=== PATIENT | female | born 1955 | race Caucasian/White ===

== ENCOUNTER 2023-05-10 12:22 | Outpatient (OUT) | payer MEDICARE, SELFPAY ==
[2023-05-10 12:54] LABS: Basophils Percent Auto 0.6 % (0.2-2.0); Eosinophils Absolute Auto 0.2 10^3/uL (0.0-0.7); Eosinophils Percent Auto 3.1 % (0.9-7.0); Immature Granulocytes Abs Auto 0.02 10^3/uL (0.00-0.03); Immature Granulocytes Pct Auto 0.3 % (0.0-0.5); Lymphocytes Absolute Auto 1.9 10^3/uL (1.2-3.8); Lymphocytes Percent Auto 30.1 % (20.5-60.0); Mean Corpuscular HGB Conc 33.3 g/dL (29.9-35.2); Mean Corpuscular Hemoglobin 31.8 pg (26.7-34.0); Mean Corpuscular Volume 95.5 fL (81.0-99.0); Mean Platelet Volume 8.7 fL (9.5-13.5); Monocytes Absolute Auto 0.4 10^3/uL (0.3-0.8); Monocytes Percent Auto 6.1 % (1.7-12.0); Neutrophils Absolute Auto 3.8 10^3/uL (1.4-6.5); Neutrophils Percent Auto 59.8 % (43.0-75.0); Platelet Count 296 10^3/uL (150-450); Red Blood Count 3.77 10^6/uL (4.20-5.40); Red Cell Distribution Width 12.6 % (11.0-15.0); White Blood Count 6.4 10^3/uL (4.0-11.0)
[2023-05-10 14:41] LABS: Alanine Aminotransferase 28 U/L (14-59); Albumin Globulin Ratio 1.2; Albumin Level 4.2 g/dL (3.4-5.0); Alkaline Phosphatase 90 U/L (46-116); Aspartate Amino Transferase 20 U/L (15-37); BUN Creatinine Ratio 13.7; Bilirubin Total 0.4 mg/dL (0.2-1.0); Calcium 9.1 mg/dL (8.5-10.1); Carbon Dioxide 27.2 mmol/L (21.0-32.0); Chloride 104 mmol/L (98-107); Chol HDL Ratio 2.6; Cholesterol 165 mg/dL (<=200); Estimated GFR (African America >60 (>=60); Estimated GFR (Non-African Ame 59 (>=60); Globulin 3.4 g/dL; Glucose 131 mg/dL (74-106); HDL Cholesterol 63 mg/dL (40-60); Potassium 4.2 mmol/L (3.5-5.1); Sodium 142 mmol/L (136-145); Total Protein 7.6 g/dL (6.4-8.2); Triglycerides 109 mg/dL (<=150); VLDL CHOLESTEROL 21.8 mg/dL
[2023-05-10 15:20] LABS: Free T3 2.31 pg/mL (2.18-3.98)
[2023-05-10 15:49] LABS: Estimated Average Glucose 126 mg/dL
== END 2023-05-10 12:23 | disposition home or self-care (01) ==
PROVIDERS: PCP Family Medicine; Visit Provider Family Medicine
DX: Z01.89 Encounter for other specified special examinations (principal)
CPT/HCPCS: 36415; 80053; 80061; 83036; 84436; 84443; 84481; 85025

== ENCOUNTER 2023-09-19 08:30 | Outpatient (OUT) | payer MEDICARE, SELFPAY | END 2023-09-19 08:31 | disposition home or self-care (01) | LOC: PST 08:31 | PROVIDERS: PCP Family Medicine; Visit Provider Surgery | DX: Z01.818 Encounter for other preprocedural examination (principal); R19.5 Other fecal abnormalities ==

== ENCOUNTER 2023-09-27 07:14 | Day surgery (SDC) | payer MEDICARE, SELFPAY ==
--- NOTE | 2023-09-27 | OP_ITS ---
OPERATION DATE: 09/27/2023 PREOPERATIVE DIAGNOSIS: Positive Cologuard. POSTOPERATIVE DIAGNOSIS: A 3 mm rectal polyp and sigmoid diverticulosis. PROCEDURE: Colonoscopy to cecum with cold forceps polypectomy x1 for rectal polyp. SURGEON: Eron Nunez M.D. ANESTHESIA: Monitored anesthesia care. ESTIMATED BLOOD LOSS: Less than 1 mL. INDICATIONS AND CONSENT: Patient is a 67-year-old female who recently had a positive Cologuard. Indications, risks, benefits, alternatives of proceeding with colonoscopy were explained extensively to the patient, including the risks of bleeding, colon perforation or anesthetic complications. All of her questions were answered. Informed consent was obtained. PROCEDURE: Patient brought to the operating room, placed in the left lateral decubitus position. Monitored anesthesia care was provided. Rectal exam was performed which showed no masses or blood. The scope was inserted into the anal canal. Under direct visualization was advanced. With the aid of abdominal compression, it was advanced to the cecum where cecal markings were clearly identified. Upon withdrawal of the scope, mucosal surfaces were carefully examined. There were no mass lesions or inflammatory changes. There was moderate sigmoid diverticulosis without inflammatory changes or scarring. Within the rectum, there was noted to be a 3 mm erythematous, sessile, irregular polyp that was removed with cold biopsy forceps with good hemostasis. The scope was retroflexed in the anal canal. There were some small internal/external hemorrhoids without active bleeding or inflammation. The scope was then withdrawn. Patient tolerated procedure well, was sent to recovery room in good condition.f/u colonoscopy likely in 5 years, but depends on pathology. CC: Wiliam Morales
[2023-09-27 07:34] VITALS: BP 187/88; PULSE 86; RESP 18; TEMP 36.2; O2SAT 98
[2023-09-27] MEDS: LACTATED RINGER'S SOLUTION 1,000 ML 50 ML IV (07:47)
[2023-09-27 09:38] VITALS: BP 146/75; PULSE 66; RESP 18; TEMP 36.6; O2SAT 94
[2023-09-27 09:53] VITALS: BP 158/84; PULSE 57; RESP 16; O2SAT 97
[2023-09-27 10:08] VITALS: BP 151/86; PULSE 60; RESP 18; O2SAT 95
== END 2023-09-27 10:08 | disposition home or self-care (01) ==
PROVIDERS: PCP Family Medicine; Visit Provider Surgery
PROC: (CPT 45380; principal; 2023-09-27 08:50)
DX: K62.1 Rectal polyp (principal); R19.5 Other fecal abnormalities; K57.30 Diverticulosis of large intestine without perforation or abscess without bleeding; F41.9 Anxiety disorder, unspecified; F32.A Depression, unspecified; E78.5 Hyperlipidemia, unspecified; I10 Essential (primary) hypertension; K58.9 Irritable bowel syndrome, unspecified; E66.9 Obesity, unspecified; Z68.34 Body mass index [BMI] 34.0-34.9, adult; E11.42 Type 2 diabetes mellitus with diabetic polyneuropathy; Z90.710 Acquired absence of both cervix and uterus; Z79.899 Other long term (current) drug therapy
CPT/HCPCS: 45380; 88305; J2704

== ENCOUNTER 2023-10-18 07:33 | Outpatient (OUT) | payer MEDICARE, SELFPAY ==
--- NOTE | 2023-10-18 07:52 | MM_ITS ---
Patient Name: RAJ SOLOMON MR#: [id number] : 1955 Exam Date: 10/18/2023 Ordering Doctor: DR Emmett Watson . RADIOLOGY REPORT PROCEDURE: MM TOMOSYNTHESIS SCREENING BI COMPARISON: MG MAMM SCREEN 3D SERINA CAD, 09/21/2022. MG MAMM SCREEN 3D SERINA CAD, 08/25/2021. MG MAMM SCREEN SERINA W CAD, 07/01/2020. MG MAMM SERINA SCRN W CAD DIG, 04/24/2014. INDICATIONS: Screening Calculator Name NCI Breast Cancer Risk Assessment Tool 5 Year Breast Cancer Risk 3.20% Lifetime Breast Cancer Risk 10.80% Personal Breast Cancer No Personal Ovarian Cancer No Treatments None Family Cancers Niece with breast cancer at age 53; Aunt-maternal with ovarian cancer at age 60; Mother with breast cancer at age ~42; Aunt-paternal with breast cancer at age ~55; Brother with lung cancer at age 62. LOCATION: [facility] BREAST COMPOSITION: Almost entirely fatty. FINDINGS: DIAGNOSTIC CATEGORY 2--BENIGN FINDING: RIGHT BREAST: No significant suspicious finding. No significant change has occurred. LEFT BREAST: No significant suspicious finding. Scattered benign-appearing lymph nodes are present. No significant change has occurred. RECOMMENDATIONS: ROUTINE MAMMOGRAM AND CLINICAL EVALUATION IN 12 MONTHS. PLEASE NOTE: A NORMAL MAMMOGRAM DOES NOT EXCLUDE THE POSSIBILITY OF BREAST CANCER. A CLINICALLY SUSPICIOUS PALPABLE LUMP SHOULD BE BIOPSIED. Dictated by: Matthew Reynoso M.D. on 10/19/2023 at 07:35 Approved by: Matthew Reynoso M.D. on 10/19/2023 at 07:37
== END 2023-10-18 07:34 | disposition home or self-care (01) ==
LOC: MAMMO 07:33
PROVIDERS: PCP Family Medicine; Visit Provider Family Medicine
DX: Z12.31 Encounter for screening mammogram for malignant neoplasm of breast (principal); Z80.3 Family history of malignant neoplasm of breast; Z80.41 Family history of malignant neoplasm of ovary; Z80.1 Family history of malignant neoplasm of trachea, bronchus and lung
CPT/HCPCS: 77063; 77067

== ENCOUNTER 2024-01-04 15:44 | Outpatient (OUT) | payer MEDICARE, SELFPAY ==
[2024-01-04 16:25] LABS: Basophils Percent Auto 0.4 % (0.2-2.0); Eosinophils Absolute Auto 0.1 10^3/uL (0.0-0.7); Eosinophils Percent Auto 1.1 % (0.9-7.0); Hematocrit 35.6 % (36.0-48.0); Hemoglobin 11.7 g/dL (12.0-16.0); Immature Granulocytes Abs Auto 0.03 10^3/uL (0.00-0.03); Immature Granulocytes Pct Auto 0.3 % (0.0-0.5); Lymphocytes Absolute Auto 2.2 10^3/uL (1.2-3.8); Lymphocytes Percent Auto 21.4 % (20.5-60.0); Mean Corpuscular HGB Conc 32.9 g/dL (29.9-35.2); Mean Corpuscular Hemoglobin 31.7 pg (26.7-34.0); Mean Corpuscular Volume 96.5 fL (81.0-99.0); Mean Platelet Volume 8.9 fL (9.5-13.5); Monocytes Absolute Auto 0.6 10^3/uL (0.3-0.8); Monocytes Percent Auto 5.4 % (1.7-12.0); Neutrophils Absolute Auto 7.5 10^3/uL (1.4-6.5); Neutrophils Percent Auto 71.4 % (43.0-75.0); Platelet Count 383 10^3/uL (150-450); Red Blood Count 3.69 10^6/uL (4.20-5.40); Red Cell Distribution Width 12.5 % (11.0-15.0); White Blood Count 10.5 10^3/uL (4.0-11.0)
[2024-01-04 16:38] LABS: Erythrocyte Sedimentation Rate 29 mm/hr (<=30)
[2024-01-04 16:48] LABS: Free T3 1.36 pg/mL (2.18-3.98); Thyroid Stimulating Hormone 2.156 uIU/mL (0.358-3.740); Uric Acid 4.3 mg/dL (2.6-6.0)
[2024-01-06 04:07] LABS: Estradiol 8.9 pg/mL (0.0-54.7); FSH 53.7 mIU/mL (25.8-134.8); Progesterone 0.1 ng/mL (.)
== END 2024-01-04 15:45 | disposition home or self-care (01) ==
LOC: LAB 15:50
PROVIDERS: PCP Family Medicine; Visit Provider Family Medicine
DX: M76.60 Achilles tendinitis, unspecified leg (principal); N95.1 Menopausal and female climacteric states; M25.50 Pain in unspecified joint; R53.83 Other fatigue; D64.9 Anemia, unspecified
CPT/HCPCS: 36415; 82670; 83001; 84144; 84436; 84443; 84481; 84550; 85025; 85652

== ENCOUNTER 2024-01-11 16:47 | Emergency (ER) | payer MEDICARE, SELFPAY ==
[2024-01-11] VITALS (12 sets, daily range): BP systolic 163–240; BP diastolic 65–100; PULSE 66; RESP 18; TEMP 37.3; O2SAT 95–98; BMI 33.3
--- NOTE | 2024-01-11 16:55 | CT_ITS ---
The [address] [address] Patient Name: RAJ SOLOMON MRN: [id number] date: 1955 Sex: F Assigned Patient Location: ER Current Patient Location: ER Accession/Order Number: [id number] Exam Date: 01/11/2024 17:10 Report Date: 01/11/2024 17:37 At the request of: TRISH KIM Procedure: CT head/brain wo con EXAM: CT head/brain wo con HISTORY: fall with an injury to the face. COMPARISON: None. TECHNIQUE: Multi slice thin computed tomograms of the head were obtained, with sagittal and coronal reconstructions. FINDINGS: The ventricles are not enlarged, the lateral ventricles are symmetric and the third ventricles in the midline. The sylvian fissures and cortical sulci are unremarkable. There is no evidence of an intracranial hemorrhage, mass lesion or apparent acute infarct. Frontal hyperostosis is noted. A small area of diminished attenuation is seen adjacent to the head of the caudate lobe on the right, possibly due to the small remote infarct. No other significant abnormality is seen in the deep white matter. The cerebellum and visualized brainstem are intact. The visualized paranasal sinuses are clear. The middle ears are aerated. The mastoid sinuses are clear. There is no apparent acute skull fracture. CT/CT head/brain wo con IMPRESSION: There is no evidence of an intracranial hemorrhage, mass lesion or apparent acute infarct. A very small focal area of diminished attenuation adjacent to the head of the caudate lobe on the right is consistent with a small remote infarct. The paranasal sinuses are clear and there is no apparent acute skull fracture. Direct comparison with a previous study may be helpful in determining the chronicity of these findings. Electronically authenticated by: NENA LONGORIA Date: 01/11/2024 17:37
--- NOTE | 2024-01-11 16:56 | CT_ITS ---
[address] [address] Patient Name: RAJ SOLOMON MRN: [id number] date: 1955 Sex: F Assigned Patient Location: ER Current Patient Location: ER Accession/Order Number: [id number] Exam Date: 01/11/2024 17:10 Report Date: 01/11/2024 17:58 At the request of: TRISH KIM Procedure: CT facial bones wo con EXAM: CT facial bones wo con, CT cervical spine wo con HISTORY: fall COMPARISON: None. TECHNIQUE: Axial CT scans through cervical spine and facial bones were obtained without IV contrast administration. Dose reduction techniques were achieved by using: automated exposure control and/or adjustment of mA and /or kV according to patient size and/or use of iterative reconstruction technique. CT FACIAL FINDINGS: No acute fracture or posttraumatic malalignment. The globes are intact bilaterally. There is no retrobulbar hematoma. The soft tissues are grossly unremarkable. The visualized paranasal sinuses show no air-fluid level. Mastoid air cells are clear. CT/CT facial bones wo con IMPRESSION: No acute abnormality. CT CERVICAL SPINE FINDINGS: No acute fracture or posttraumatic malalignment is seen. The dens and lateral masses of C1 are symmetric. There is straightening of the normal cervical lordotic curvature. There are mild degenerative changes of cervical spine with multilevel mild marginal spurring, mild disc space narrowing at C4-5, C5-6 levels, mild uncovertebral and facet arthrosis. There are multilevel small disc-osteophyte complex, most pronounced at C5-6 level. No significant central canal narrowing. There are multilevel neural foraminal narrowing, moderate at right C4-5, bilateral C5-6 and mild at bilateral C3-4. The prevertebral soft tissue space appears normal. Biapical scarring is noted. IMPRESSION: No visualized acute cervical spine abnormality. Multilevel cervical spondylosis, as described. Straightening of cervical lordosis, may be related to positioning or muscle spasm. Electronically authenticated by: RIVERA UNLU Date: 01/11/2024 17:58
--- NOTE | 2024-01-11 16:56 | CT_ITS ---
[address] [address] Patient Name: RAJ SOLOMON MRN: [id number] date: 1955 Sex: F Assigned Patient Location: ER Current Patient Location: ER Accession/Order Number: [id number] Exam Date: 01/11/2024 17:10 Report Date: 01/11/2024 17:58 At the request of: TRISH KIM Procedure: CT cervical spine wo con EXAM: CT facial bones wo con, CT cervical spine wo con HISTORY: fall COMPARISON: None. TECHNIQUE: Axial CT scans through cervical spine and facial bones were obtained without IV contrast administration. Dose reduction techniques were achieved by using: automated exposure control and/or adjustment of mA and /or kV according to patient size and/or use of iterative reconstruction technique. CT FACIAL FINDINGS: No acute fracture or posttraumatic malalignment. The globes are intact bilaterally. There is no retrobulbar hematoma. The soft tissues are grossly unremarkable. The visualized paranasal sinuses show no air-fluid level. Mastoid air cells are clear. CT/CT cervical spine wo con IMPRESSION: No acute abnormality. CT CERVICAL SPINE FINDINGS: No acute fracture or posttraumatic malalignment is seen. The dens and lateral masses of C1 are symmetric. There is straightening of the normal cervical lordotic curvature. There are mild degenerative changes of cervical spine with multilevel mild marginal spurring, mild disc space narrowing at C4-5, C5-6 levels, mild uncovertebral and facet arthrosis. There are multilevel small disc-osteophyte complex, most pronounced at C5-6 level. No significant central canal narrowing. There are multilevel neural foraminal narrowing, moderate at right C4-5, bilateral C5-6 and mild at bilateral C3-4. The prevertebral soft tissue space appears normal. Biapical scarring is noted. IMPRESSION: No visualized acute cervical spine abnormality. Multilevel cervical spondylosis, as described. Straightening of cervical lordosis, may be related to positioning or muscle spasm. Electronically authenticated by: RIVERA UNLU Date: 01/11/2024 17:58
--- NOTE | 2024-01-11 17:02 | ED_ITS ---
Documented by User: URIEL Narvaez 01/11/24 18:47 HPI - General Adult General Chief complaint: Fall Stated complaint: Facial Injury from fall Time Seen by Provider: 01/11/24 16:55 Source: patient Mode of arrival: walk-in Limitations: no limitations History of Present Illness HPI narrative: Patient is a 68-year-old female who presents to the emergency department for injuries after a fall at home. Patient states she has a history of issues with her right Achilles tendon and the ankle and states that her ankle gave out on her while walking, she fell forward and hit her face on concrete. She had no loss of consciousness and denies taking blood thinners. She denies visual changes, vomiting, neck or back pain. She was able to ambulate into the emergency department. She complains of pain over the nose, lip. Tetanus is up-to-date. She has a large hematoma to the right elbow and has mild pain in the posterior right ankle. She states tetanus is up-to-date. She is noted to be significantly hypertensive at initial interview, she states that she has a history of hypertension. Related Data Home Medications ?Medication ?Instructions ?Recorded ?Confirmed carvedilol 6.25 mg tablet 6.25 mg PO BID 09/18/23 01/11/24 cyclobenzaprine 10 mg tablet 20 mg PO QPM 09/18/23 01/11/24 diclofenac sodium 75 mg 75 mg PO BID 09/18/23 01/11/24 tablet,delayed release lisinopril 20 mg tablet 20 mg PO DAILY 09/18/23 01/11/24 pantoprazole 40 mg tablet,delayed 40 mg PO DAILY 09/18/23 01/11/24 release paroxetine HCl 40 mg tablet 40 mg PO DAILY 09/18/23 01/11/24 simvastatin 20 mg tablet 20 mg PO DAILY 09/18/23 01/11/24 zolpidem 10 mg tablet 10 mg PO DAILY 09/18/23 01/11/24 Previous Rx's ?Medication ?Instructions ?Recorded hydrocodone 5 mg-acetaminophen 325 1 tab PO Q6H PRN pain 3 days #12 01/11/24 mg tablet tabs ondansetron 4 mg disintegrating 4 mg PO Q6H PRN nausea and 01/11/24 tablet vomiting #12 tabs Allergies Allergy/AdvReac Type Severity Reaction Status Date / Time No Known Drug Allergies Allergy Verified 01/11/24 16:55 Review of Systems ROS Constitutional Denies: fever or chills Eyes Denies: change in vision Ears, nose, mouth, and throat Denies: throat pain, neck pain or nasal congestion Cardiovascular Denies: chest pain Respiratory Denies: shortness of breath or cough Gastrointestinal Denies: nausea or vomiting Musculoskeletal Reports: extremity pain and extremity swelling; Denies: back pain or neck pain Integumentary/Breast Denies: rash Neurological Denies: headache Hematologic/Lymphatic Denies: easy bruising or easy bleeding PFSH [facility] Medical History (Updated 01/11/24 @ 18:42 by URIEL Narvaez) Rotator cuff tear ?M75.100 - Unspecified rotator cuff tear or rupture of unspecified shoulder, not specified as traumatic (ICD-10) Urticaria ?L50.9 - Urticaria, unspecified (ICD-10) Plantar fasciitis ?M72.2 - Plantar fascial fibromatosis (ICD-10) Dislocation of right shoulder joint ?S43.004A - Unspecified dislocation of right shoulder joint, initial encounter (ICD-10) Myalgia ?M79.10 - Myalgia, unspecified site (ICD-10) Hip pain ?M25.559 - Pain in unspecified hip (ICD-10) Dyspnea ?R06.00 - Dyspnea, unspecified (ICD-10) Humerus fracture ?S42.309A - Unspecified fracture of shaft of humerus, unspecified arm, initial encounter for closed fracture (ICD-10) Chest pain ?R07.9 - Chest pain, unspecified (ICD-10) Arthralgia ?M25.50 - Pain in unspecified joint (ICD-10) Achilles tendinitis ?M76.60 - Achilles tendinitis, unspecified leg (ICD-10) Type 2 diabetes mellitus ?E11.9 - Type 2 diabetes mellitus without complications (ICD-10) Positive colorectal cancer screening using Cologuard test ?R19.5 - Other fecal abnormalities (ICD-10) Peripheral neuropathy ?G62.9 - Polyneuropathy, unspecified (ICD-10) Obesity ?E66.9 - Obesity, unspecified (ICD-10) Low back pain syndrome ?M54.50 - Low back pain, unspecified (ICD-10) Insomnia ?G47.00 - Insomnia, unspecified (ICD-10) Increased liver enzymes ?R74.8 - Abnormal levels of other serum enzymes (ICD-10) IBS (irritable bowel syndrome) ?K58.9 - Irritable bowel syndrome without diarrhea (ICD-10) Hypertension ?I10 - Essential (primary) hypertension (ICD-10) Hyperlipidemia ?E78.5 - Hyperlipidemia, unspecified (ICD-10) Hiatal hernia ?K44.9 - Diaphragmatic hernia without obstruction or gangrene (ICD-10) Gout ?M10.9 - Gout, unspecified (ICD-10) Fibrocystic disease of breast ?N60.19 - Diffuse cystic mastopathy of unspecified breast (ICD-10) Depression ?F32.A - Depression, unspecified (ICD-10) DJD (degenerative joint disease) ?M19.90 - Unspecified osteoarthritis, unspecified site (ICD-10) Anxiety ?F41.9 - Anxiety disorder, unspecified (ICD-10) Surgical History (Updated 09/18/23 @ 14:09 by Ewelina Lay RN) H/O vaginal hysterectomy ?Z90.710 - Acquired absence of both cervix and uterus (ICD-10) Hx of tonsillectomy ?Z90.89 - Acquired absence of other organs (ICD-10) H/O repair of rotator cuff ?Z98.890 - Other specified postprocedural states (ICD-10) H/O colonoscopy ?Z98.890 - Other specified postprocedural states (ICD-10) History of arthroplasty of right shoulder ?Z96.611 - Presence of right artificial shoulder joint (ICD-10) Hx of appendectomy ?Z90.49 - Acquired absence of other specified parts of digestive tract (ICD- 10) Family History (Updated 09/18/23 @ 14:22 by Ewelina Lay RN) Other CAD (coronary artery disease) Family history of diabetes mellitus Family history of myocardial infarction Social History Within the past year, how often did you have a drink containing alcohol: 2-3 times a week Within the past year, how many standard drinks containing alcohol did you have on a typical day: 1 or 2 Within the past year, how often did you have six or more drinks on one occasion: never Total score: 0 Score interpretation: Questions 2 and 3 are 0. It can be assumed that the patient's drinking is below the recommended limits. However, please confirm the accuracy of the patient's alcohol intake over the last few months. Smoking status: Never smoker Second hand tobacco smoke exposure: No Non-prescribed substance use: denies use Previous occupational history: retired Highest level of school completed/degree received: high school graduate Gender Identity: female Exam Narrative Exam Narrative: Gen.: Awake, alert, in no distress Head: Normocephalic ENT: Moist mucous membranes; Abrasion noted over the nasal bridge with no septal hematoma or epistaxis. Abrasion noted to the upper lip with moderate swelling centrally, small superficial laceration that does not extend through the lip is noted inside the inner buccal mucosa. C-spine is nontender, full range of motion Respiratory: No respiratory distress Extremities: Large hematoma noted to the soft tissue of the right lateral elbow, no bony tenderness over the posterior olecranon or proximal forearm. 2+ right radial pulse. No extremity injury to the left arm. Faint abrasion to the right anterior knee with pelvis stable, hips nontender and no bony tenderness of the knees bilaterally. Mild soft tissue tenderness on the posterior right ankle with no bony tenderness. Psych: Normal mood and affect Neuro: No focal neuro deficit Skin: Warm, dry Constitutional Vital Signs, click to edit/add: Last Vital Signs Temp 99.1 F 01/11/24 16:50 Pulse 66 01/11/24 16:50 Resp 18 01/11/24 16:50 BP 163/65 H 01/11/24 18:30 Pulse Ox 95 01/11/24 18:30 O2 Del Method Room Air 01/11/24 16:50 Course Vital Signs Vital signs: Vital Signs Temperature 99.1 F 01/11/24 16:50 Pulse Rate 66 01/11/24 16:50 Respiratory Rate 18 01/11/24 16:50 Blood Pressure 240/100 H 01/11/24 16:50 Pulse Oximetry 98 01/11/24 16:50 Oxygen Delivery Method Room Air 01/11/24 16:50 Temperature 99.1 F 01/11/24 16:50 Pulse Rate 66 01/11/24 16:50 Respiratory Rate 18 01/11/24 16:50 Blood Pressure 163/65 H 01/11/24 18:30 Pulse Oximetry 95 01/11/24 18:30 Oxygen Delivery Method Room Air 01/11/24 16:50 Medical Decision Making MDM Narrative Medical decision making narrative: Patient treated with IV morphine and Zofran as well as Vasotec and hydralazine for blood pressure with improvement. Blood pressure is 163/75 at time of reevaluation prior to discharge. Patient is resting comfortably. No indication for suture repair to the lip. CTs of the head, facial bones and cervical spine are unremarkable. X-rays of the right elbow and right ankle show no bony fracture. She was placed in Wu wrap's of the right elbow and ankle and remains neurovascularly intact. She is given a short course of analgesics and nausea medication for home. She was instructed to follow-up with Dr. Watson for blood pressure recheck next week and she was given a referral for Dr. Eliseo Orosco for podiatry as she has calcium deposition in the right posterior ankle consistent with a calcific tendinitis. Return to the ER if symptoms change or worsen. Rest, ice areas of injury. Medical Records Medical records reviewed: Yes I reviewed the patient's medical records Imaging Data CT scan - head: Radiologist's impression: ITS Impressions Head CT 01/11/24 16:55 IMPRESSION: There is no evidence of an intracranial hemorrhage, mass lesion or apparent acute infarct. A very small focal area of diminished attenuation adjacent to the head of the caudate lobe on the right is consistent with a small remote infarct. The paranasal sinuses are clear and there is no apparent acute skull fracture. Direct comparison with a previous study may be helpful in determining the chronicity of these findings. Electronically authenticated by: NENA LONGORIA Date: 01/11/2024 17:[address] 01/11/24 16:56 IMPRESSION: No acute abnormality. CT CERVICAL SPINE FINDINGS: No acute fracture or posttraumatic malalignment is seen. The dens and lateral masses of C1 are symmetric. There is straightening of the normal cervical lordotic curvature. There are mild degenerative changes of cervical spine with multilevel mild marginal spurring, mild disc space narrowing at C4-5, C5-6 levels, mild uncovertebral and facet arthrosis. There are multilevel small disc-osteophyte complex, most pronounced at C5-6 level. No significant central canal narrowing. There are multilevel neural foraminal narrowing, moderate at right C4-5, bilateral C5-6 and mild at bilateral C3-4. The prevertebral soft tissue space appears normal. Biapical scarring is noted. IMPRESSION: No visualized acute cervical spine abnormality. Multilevel cervical spondylosis, as described. Straightening of cervical lordosis, may be related to positioning or muscle spasm. Electronically authenticated by: [employer] Date: 01/11/2024 17:[address] 01/11/24 16:56 IMPRESSION: No acute abnormality. CT CERVICAL SPINE FINDINGS: No acute fracture or posttraumatic malalignment is seen. The dens and lateral masses of C1 are symmetric. There is straightening of the normal cervical lordotic curvature. There are mild degenerative changes of cervical spine with multilevel mild marginal spurring, mild disc space narrowing at C4-5, C5-6 levels, mild uncovertebral and facet arthrosis. There are multilevel small disc-osteophyte complex, most pronounced at C5-6 level. No significant central canal narrowing. There are multilevel neural foraminal narrowing, moderate at right C4-5, bilateral C5-6 and mild at bilateral C3-4. The prevertebral soft tissue space appears normal. Biapical scarring is noted. IMPRESSION: No visualized acute cervical spine abnormality. Multilevel cervical spondylosis, as described. Straightening of cervical lordosis, may be related to positioning or muscle spasm. Electronically authenticated by: [employer] Date: 01/11/2024 17:58 Ankle X-Ray 01/11/24 17:29 IMPRESSION: 1. Soft tissue calcifications over the posterior ankle along with soft tissue swelling which could represent Achilles tendon avulsion from its insertion. 2. No other potential fracture demonstrated. Electronically authenticated by: AMADA DE LA ROSA Date: 01/11/2024 17:49 Elbow X-Ray 01/11/24 17:29 IMPRESSION: 1. Significant soft tissue swelling about the radial and posterior aspect of the elbow likely representing hematoma. Correlate for common extensor tendon tear. 2. No acute fracture demonstrated. Electronically authenticated by: AMADA DE LA ROSA Date: 01/11/2024 17:51 Discharge Plan Discharge Stand Alone Forms: Portal Instructions Chief Complaint: Fall Clinical Impression: Hematoma of right elbow, Closed head injury, Laceration of lip, Ankle pain, right, Contusion of face, Hypertension, Fall Patient Disposition: Home, Self-Care Time of Disposition Decision: 18:42 Condition: Good Prescriptions / Home Meds: New hydrocodone-acetaminophen 5-325 mg tablet 1 tab PO Q6H PRN (Reason: pain) 3 Days Qty: 12 0RF Rx Instructions: DX: M25.571 ondansetron 4 mg tablet,disintegrating 4 mg PO Q6H PRN (Reason: nausea and vomiting) Qty: 12 0RF No Action carvedilol 6.25 mg tablet 6.25 mg PO BID Rx Instructions: must administer with a meal/food cyclobenzaprine 10 mg tablet 20 mg PO QPM diclofenac sodium 75 mg tablet,delayed release (DR/EC) 75 mg PO BID lisinopril 20 mg tablet 20 mg PO DAILY pantoprazole 40 mg tablet,delayed release (DR/EC) 40 mg PO DAILY paroxetine HCl 40 mg tablet 40 mg PO DAILY simvastatin 20 mg tablet 20 mg PO DAILY zolpidem 10 mg tablet 10 mg PO DAILY Print Language: Hong Konger Instructions: Head Injury (ED), Hematoma (ED), Facial Contusion (ED) Referrals: Emmett Watson MD [Primary Care Provider] - 1 week Nena Zaidi DPM [Physician] - 1 week Discharge Date/Time: 01/11/24 18:51 Documented by User: Kwesi Mendoza 01/12/24 07:00 HPI - General Adult General Chief complaint: Fall Stated complaint: Facial Injury from fall Time Seen by Provider: 01/11/24 16:55 Related Data Home Medications ?Medication ?Instructions ?Recorded ?Confirmed carvedilol 6.25 mg tablet 6.25 mg PO BID 09/18/23 01/11/24 cyclobenzaprine 10 mg tablet 20 mg PO QPM 09/18/23 01/11/24 diclofenac sodium 75 mg 75 mg PO BID 09/18/23 01/11/24 tablet,delayed release lisinopril 20 mg tablet 20 mg PO DAILY 09/18/23 01/11/24 pantoprazole 40 mg tablet,delayed 40 mg PO DAILY 09/18/23 01/11/24 release paroxetine HCl 40 mg tablet 40 mg PO DAILY 09/18/23 01/11/24 simvastatin 20 mg tablet 20 mg PO DAILY 09/18/23 01/11/24 zolpidem 10 mg tablet 10 mg PO DAILY 09/18/23 01/11/24 Previous Rx's ?Medication ?Instructions ?Recorded hydrocodone 5 mg-acetaminophen 325 1 tab PO Q6H PRN pain 3 days #12 01/11/24 mg tablet tabs ondansetron 4 mg disintegrating 4 mg PO Q6H PRN nausea and 01/11/24 tablet vomiting #12 tabs Allergies Allergy/AdvReac Type Severity Reaction Status Date / Time No Known Drug Allergies Allergy Verified 01/11/24 16:55 [facility] Medical History (Updated 01/11/24 @ 18:42 by URIEL Narvaez) Rotator cuff tear ?M75.100 - Unspecified rotator cuff tear or rupture of unspecified shoulder, not specified as traumatic (ICD-10) Urticaria ?L50.9 - Urticaria, unspecified (ICD-10) Plantar fasciitis ?M72.2 - Plantar fascial fibromatosis (ICD-10) Dislocation of right shoulder joint ?S43.004A - Unspecified dislocation of right shoulder joint, initial encounter (ICD-10) Myalgia ?M79.10 - Myalgia, unspecified site (ICD-10) Hip pain ?M25.559 - Pain in unspecified hip (ICD-10) Dyspnea ?R06.00 - Dyspnea, unspecified (ICD-10) Humerus fracture ?S42.309A - Unspecified fracture of shaft of humerus, unspecified arm, initial encounter for closed fracture (ICD-10) Chest pain ?R07.9 - Chest pain, unspecified (ICD-10) Arthralgia ?M25.50 - Pain in unspecified joint (ICD-10) Achilles tendinitis ?M76.60 - Achilles tendinitis, unspecified leg (ICD-10) Type 2 diabetes mellitus ?E11.9 - Type 2 diabetes mellitus without complications (ICD-10) Positive colorectal cancer screening using Cologuard test ?R19.5 - Other fecal abnormalities (ICD-10) Peripheral neuropathy ?G62.9 - Polyneuropathy, unspecified (ICD-10) Obesity ?E66.9 - Obesity, unspecified (ICD-10) Low back pain syndrome ?M54.50 - Low back pain, unspecified (ICD-10) Insomnia ?G47.00 - Insomnia, unspecified (ICD-10) Increased liver enzymes ?R74.8 - Abnormal levels of other serum enzymes (ICD-10) IBS (irritable bowel syndrome) ?K58.9 - Irritable bowel syndrome without diarrhea (ICD-10) Hypertension ?I10 - Essential (primary) hypertension (ICD-10) Hyperlipidemia ?E78.5 - Hyperlipidemia, unspecified (ICD-10) Hiatal hernia ?K44.9 - Diaphragmatic hernia without obstruction or gangrene (ICD-10) Gout ?M10.9 - Gout, unspecified (ICD-10) Fibrocystic disease of breast ?N60.19 - Diffuse cystic mastopathy of unspecified breast (ICD-10) Depression ?F32.A - Depression, unspecified (ICD-10) DJD (degenerative joint disease) ?M19.90 - Unspecified osteoarthritis, unspecified site (ICD-10) Anxiety ?F41.9 - Anxiety disorder, unspecified (ICD-10) Surgical History (Updated 09/18/23 @ 14:09 by Ewelina Lay RN) H/O vaginal hysterectomy ?Z90.710 - Acquired absence of both cervix and uterus (ICD-10) Hx of tonsillectomy ?Z90.89 - Acquired absence of other organs (ICD-10) H/O repair of rotator cuff ?Z98.890 - Other specified postprocedural states (ICD-10) H/O colonoscopy ?Z98.890 - Other specified postprocedural states (ICD-10) History of arthroplasty of right shoulder ?Z96.611 - Presence of right artificial shoulder joint (ICD-10) Hx of appendectomy ?Z90.49 - Acquired absence of other specified parts of digestive tract (ICD- 10) Family History (Updated 09/18/23 @ 14:22 by Ewelina Lay RN) Other CAD (coronary artery disease) Family history of diabetes mellitus Family history of myocardial infarction Social History Within the past year, how often did you have a drink containing alcohol: 2-3 t imes a week Within the past year, how many standard drinks containing alcohol did you have on a typical day: 1 or 2 Within the past year, how often did you have six or more drinks on one occasion: never Total score: 0 Score interpretation: Questions 2 and 3 are 0. It can be assumed that the patient's drinking is below the recommended limits. However, please confirm the accuracy of the patient's alcohol intake over the last few months. Smoking status: Never smoker Second hand tobacco smoke exposure: No Non-prescribed substance use: denies use Previous occupational history: retired Highest level of school completed/degree received: high school graduate Gender Identity: female Exam Constitutional Vital Signs, click to edit/add: Last Vital Signs Temp 99.1 F 01/11/24 16:50 Pulse 66 01/11/24 16:50 Resp 18 01/11/24 16:50 BP 163/65 H 01/11/24 18:30 Pulse Ox 95 01/11/24 18:30 O2 Del Method Room Air 01/11/24 16:50 Course Vital Signs Vital signs: Vital Signs Temperature 99.1 F 01/11/24 16:50 Pulse Rate 66 01/11/24 16:50 Respiratory Rate 18 01/11/24 16:50 Blood Pressure 240/100 H 01/11/24 16:50 Pulse Oximetry 98 01/11/24 16:50 Oxygen Delivery Method Room Air 01/11/24 16:50 Temperature 99.1 F 01/11/24 16:50 Pulse Rate 66 01/11/24 16:50 Respiratory Rate 18 01/11/24 16:50 Blood Pressure 163/65 H 01/11/24 18:30 Pulse Oximetry 95 01/11/24 18:30 Oxygen Delivery Method Room Air 01/11/24 16:50 Medical Decision Making MDM Narrative Medical decision making narrative: Patient treated with IV morphine and Zofran as well as Vasotec and hydralazine for blood pressure with improvement. Blood pressure is 163/75 at time of reevaluation prior to discharge. Patient is resting comfortably. No indication for suture repair to the lip. CTs of the head, facial bones and cervical spine are unremarkable. X-rays of the right elbow and right ankle show no bony fracture. She was placed in Wu wrap's of the right elbow and ankle and remains neurovascularly intact. She is given a short course of analgesics and nausea medication for home. She was instructed to follow-up with Dr. Watson for blood pressure recheck next week and she was given a referral for Dr. Eliseo Orosco for podiatry as she has calcium deposition in the right posterior ankle consistent with a calcific tendinitis. Return to the ER if symptoms change or worsen. Rest, ice areas of injury. For this patient encounter I reviewed the mid-level provider?s documentation, medical decision-making and treatment plan, and I personally spent time with this patient. Shared APC visit, physician attestation: [id number]: The visit was performed by both a physician and an APC. I performed all aspects of MDM as documented. - Henri, Imaging Data CT scan - head: Radiologist's impression: ITS Impressions Head CT 01/11/24 16:55 IMPRESSION: There is no evidence of an intracranial hemorrhage, mass lesion or apparent acute infarct. A very small focal area of diminished attenuation adjacent to the head of the caudate lobe on the right is consistent with a small remote infarct. The paranasal sinuses are clear and there is no apparent acute skull fracture. Direct comparison with a previous study may be helpful in determining the chronicity of these findings. Electronically authenticated by: NENA LONGORIA Date: 01/11/2024 17:[address] 01/11/24 16:56 IMPRESSION: No acute abnormality. CT CERVICAL SPINE FINDINGS: No acute fracture or posttraumatic malalignment is seen. The dens and lateral masses of C1 are symmetric. There is straightening of the normal cervical lordotic curvature. There are mild degenerative changes of cervical spine with multilevel mild marginal spurring, mild disc space narrowing at C4-5, C5-6 levels, mild uncovertebral and facet arthrosis. There are multilevel small disc-osteophyte complex, most pronounced at C5-6 level. No significant central canal narrowing. There are multilevel neural foraminal narrowing, moderate at right C4-5, bilateral C5-6 and mild at bilateral C3-4. The prevertebral soft tissue space appears normal. Biapical scarring is noted. IMPRESSION: No visualized acute cervical spine abnormality. Multilevel cervical spondylosis, as described. Straightening of cervical lordosis, may be related to positioning or muscle spasm. Electronically authenticated by: RIVERA GARCIA Date: 01/11/2024 17:[address] 01/11/24 16:56 IMPRESSION: No acute abnormality. CT CERVICAL SPINE FINDINGS: No acute fracture or posttraumatic malalignment is seen. The dens and lateral masses of C1 are symmetric. There is straightening of the normal cervical lordotic curvature. There are mild degenerative changes of cervical spine with multilevel mild marginal spurring, mild disc space narrowing at C4-5, C5-6 levels, mild uncovertebral and facet arthrosis. There are multilevel small disc-osteophyte complex, most pronounced at C5-6 level. No significant central canal narrowing. There are multilevel neural foraminal narrowing, moderate at right C4-5, bilateral C5-6 and mild at bilateral C3-4. The prevertebral soft tissue space appears normal. Biapical scarring is noted. IMPRESSION: No visualized acute cervical spine abnormality. Multilevel cervical spondylosis, as described. Straightening of cervical lordosis, may be related to positioning or muscle spasm. Electronically authenticated by: RIVERA [facility] Date: 01/11/2024 17:58 Ankle X-Ray 01/11/24 17:29 IMPRESSION: 1. Soft tissue calcifications over the posterior ankle along with soft tissue swelling which could represent Achilles tendon avulsion from its insertion. 2. No other potential fracture demonstrated. Electronically authenticated by: AMADA DE LA ROSA Date: 01/11/2024 17:49 Elbow X-Ray 01/11/24 17:29
[2024-01-11] MEDS: ENALAPRILAT DIHYDRATE 1.25 MG/ML VIAL IV (17:29)
--- NOTE | 2024-01-11 17:29 | XR_ITS ---
The [address] [address] Patient Name: RAJ SOLOMON MRN: [id number] date: 1955 Sex: F Assigned Patient Location: ER Current Patient Location: ER Accession/Order Number: [id number] Exam Date: 01/11/2024 17:23 Report Date: 01/11/2024 17:49 At the request of: TRISH KIM Procedure: XR ankle RT min 3V STUDY: XR ankle RT min 3V, [id number] HISTORY: fall COMPARISON: None FINDINGS: Coarse soft tissue calcifications in the region of the myotendinous junction of the Achilles. There is posterior ankle soft tissue swelling. Achilles insertional enthesopathy. Medium-sized plantar calcaneal spur. No dislocation or suspicious osseous lesion. XR/XR ankle RT min 3V IMPRESSION: 1. Soft tissue calcifications over the posterior ankle along with soft tissue swelling which could represent Achilles tendon avulsion from its insertion. 2. No other potential fracture demonstrated. Electronically authenticated by: AMADA DE LA ROSA Date: 01/11/2024 17:49
--- NOTE | 2024-01-11 17:29 | XR_ITS ---
The [place] [id number] Patient Name: RAJ SOLOMON MRN: [id number] date: 1955 Sex: F Assigned Patient Location: ER Current Patient Location: Accession/Order Number: [id number] Exam Date: 01/11/2024 17:23 Report Date: 01/11/2024 17:51 At the request of: TRISH KIM Procedure: XR elbow RT min 3V EXAMINATION: XR elbow RT min 3V, [id number] HISTORY: fall COMPARISON: None. FINDINGS: No fracture, dislocation, or suspicious osseous lesion. Significant soft tissue swelling over the radial and dorsal aspect of the proximal forearm. No elbow joint effusion. Mild osteoarthritis at the ulnotrochlear articulation. XR/XR elbow RT min 3V IMPRESSION: 1. Significant soft tissue swelling about the radial and posterior aspect of the elbow likely representing hematoma. Correlate for common extensor tendon tear. 2. No acute fracture demonstrated. Electronically authenticated by: AMADA DE LA ROSA Date: 01/11/2024 17:51
--- OUTSIDE RECORDS SUMMARY | 2024-01-11 17:29 | XMS_ITS | CCD ---
Author Organization [facility] Care Team Providers Care Inside Contractor Sales Name Role Phone ELATTAR, OSAMA Admitting Unavailable ELATTAR, OSAMA Attending Unavailable LALA WATSON Primary Care Unavailable SELF, REFERRED Referring Unavailable AL Procedure Practitioner Unavailab le KENNETHATTAR, OSAMA Surgeon Unavailable AL Procedure Practitioner Unavailab AYANNA Back Surgeon Unavailable ADILENE LIU Referring Unavailable LALA WATSON Primary Care Unavailable ELATTARSTONEMA Attending Unavailable ELATTAR, OSAMA Admitting Unavailable AL Procedure Practitioner Unavailab le ELATTAR, OSAMA Surgeon Unavailable ELATTAR, OSAMA Admitting Unavailable KIMBERLYN, KRISHNA Attending Unavailable LALA WATSON Referring Unavailable LALA WATSON Primary Care Unavailable AL Procedure Practitioner Unavailab thelma SOFIA OSAVLAD Surgeon Unavailable Lala Watson Primary Care Provider [phone] Lala Watson MD Primary Care Provider [phone] JANUSZ FLORES Referring Unavailable LALA WATSON Primary Care Unavailable DR LALA WATSON Attending Unavailable SHIRLEY, DR REEVES Primary Care Unavailable DR LALA WATSON Admitting Unavailable DR LALA WATSON Primary Care Unavailable DR JANUSZ FLORES Attending Unavailable DR JANUSZ FLORES Admitting Unavailable ZIDR MATTHEW TAMEZ Consulting Unavailable DR JANUSZ FLORES Consulting Unavailable DR LALA WATSON Admitting Unavailable DR LALA WATSON Attending Unavailable DR LALA WATSON Consulting Unavailable DR LALA WATSON Primary Care Unavailable DR COLLETTE CUMMINGS V Consulting Unavailable Lala Watson Primary Care Physician [phone] Erno MULLER Attending Unavailable Eron MULLER Attending Unavailable Lala Watson Referring Unavailable Eron MULLER Attending Unavailable Eron MULLER Attending Unavailable Medications Current Medications Medication Drug Class(es) Dates Sig (Normalized) Sig (Original) carvedilol 6.25 mg oral tablet (3 sources) alpha-Adrenergic Bryant, beta-Adrenergic Bryant Start: 11-16-2022 take 1 tablet by mouth twice daily carvedilol 6.25 mg Tab 6.25 mg = 1 tab(s), Oral, BID, Refills(s) 0 Start Date: 11/16/22 Status: Ordered Start: 08-01-2022 take 1 tablet by pita th twice daily carvedilol (COREG) 6.25 MG tablet TAKE 1 TABLET BY MOUTH TWICE A DAY 0 08/01/2022 Active cholecalciferol 0.05 mg oral capsule (1 source) Vitamin D Start: 08-11-2022 take 1 capsule by mouth once daily Cholecalciferol (VITAMIN D3) 50 MCG (1999 UT) CAPS TAKE 1 CAPSULE BY MOUTH EVERY DAY 0 08/11/2022 Active cyclobenzaprine hydrochloride 10 mg oral tablet (4 sources) Muscle Relaxant Start: 03-17-2021 take 2 tablets by mouth at bedtime cyclobenzaprine 10 mg Tab 20 mg = 2 tab(s), Oral, Bedtime Start Date: 03/17/21 Status: Ordered Start: 03-15-2014 cyclobenzaprin e (FLEXERIL) 10 MG tablet diclofenac sodium 75 mg delayed release oral tablet (2 sources) Nonsteroidal Anti-inflammatory Drug Start: 08-31-2023 take 1 tablet by mouth twice daily diclofenac sodium 75 mg Oral EC Tab 75 mg = 1 tab(s), Oral, BID, Refills(s) 0 Start Date: 08/31/23 Status: Ordered lisinopril 20 mg oral tablet (4 sources) Angiotensin Converting Enzyme Inhibitor Start: 05-04-2016 take 2 tablets by mouth once daily lisinopril 20 mg Tab TAKE 2 TABLETS BY MOUTH EVERY DAY Start Date: 03/17/21 Status: Ordered lorcaserin hydrochloride 10 mg oral tablet (1 source) Serotonin-2c Receptor Agonist Start: 04-28-2015 take 1 tablet by mouth twice daily Lorcaserin HCl 10 MG TABS Indications: Obesity (BMI 30.0-34.9) Take 1 tablet by mouth 2 times daily 60 tablet 3 04/28/2015 Active pantoprazole 40 mg delayed release oral tablet (4 sources) Proton Pump Inhibitor Start: 01-31-2014 take 1 tablet by mouth once daily Pantoprazole [address] Tab TAKE 1 TABLET BY MOUTH EVERY DAY Start Date: 03/17/21 Status: Ordered PARoxetine hydrochloride 40 mg oral tablet (4 sources) Serotonin Reuptake Inhibitor Start: 03-31-2014 take 1 tablet by mouth once daily paroxetine 40 mg Tab TAKE 1 TABLET BY MOUTH EVERY DAY Start Date: 03/17/21 Status: Ordered phentermine hydrochloride 37.5 mg oral tablet (1 source) Sympathomimetic Amine Anorectic Start: 08-22-2022 End: 09-21-2022 take 1 tablet by mouth once daily before breakfast phentermine (ADIPEX-P) 37.5 MG tablet Indications: Obesity (BMI 30.0-34.9) Take 1 tablet by mouth every morning (before breakfast) for 30 days. 30 tablet 0 08/22/2022 09/21/2022 Active simvastatin 20 mg oral tablet (4 sources) HMG-CoA Reductase Inhibitor Start: 02-28-2014 take 1 tablet by mouth once daily simvastatin 20 mg Tab TAKE 1 TABLET BY MOUTH EVERY DAY Start Date: 03/17/21 Status: Ordered zolpidem tartrate 10 mg oral tablet (4 sources) gamma-Aminobutyric Acid-ergic Agonist Start: 04-07-2014 take 1 tablet by mouth once daily at bedtime as needed zolpidem 10 mg oral tablet TAKE 1 TABLET BY MOUTH EVERY DAY AT BEDTIME NEEDED Start Date: 03/17/21 Status: Ordered Problems Active Problems Problem Classification Problem Date Documented Da te Episodic/Chronic Abdominal hernia (2 sources) Hiatal hernia 03-17-2021 Episodic Allergic reactions (2 sources) Pressure urticaria 11-16-2022 Episodic Anal and rectal conditions (1 source) Rectal polyp; Translations: [Rectal polyp] Onset: 10-10-2023 Episodic Anxiety disorders (2 sources) Anxiety 03-17-2021 Chronic Diabetes mellitus with complications (1 source) Type 2 diabetes mellitus with hyperglycemia; Translations: [TYPE 2 DM W/HYPERGLYCEMIA] Onset: 05-04-2022 Chronic Diabetes mellitus without complication (2 sources) Type 2 diabetes mellitus 03-17-2021 Chronic Disorders of lipid metabolism (3 sources) Hyperlipidemia, unspecified; Translations: [Hyperlipidemia] Onset: 05-04-2022 03-17-2021 Chronic Diverticulosis and diverticulitis (2 sources) Diverticula of intestine; Translations: [Diverticulosis of large intestine without perforation or abscess without bleeding] Onset: 10-10-2023 Chronic Essential hypertension (2 sources) Hypertensive disorder 03-17-2021 Chronic Fracture of upper limb (2 sources) Closed fracture of shaft of humerus 11-16-2022 Episodic Gout and other crystal arthropathies (3 sources) Gout, unspecified; Translations: [Gout] Onset: 05-04-2022 03-17-2021 Chronic Joint disorders and dislocations; trauma-related (4 sources) Unspecified internal derangement of unspecified knee; Translations: [UNS INTERNAL DERANGEMENT UNS KNEE] Onset: 05-02-2022 Chronic Mood disorders (2 sources) Depressive disorder 03-17-2021 Chronic Nonmalignant breast conditions (2 sources) Fibrocystic disease of breast 03-17-2021 Chronic Nonspecific chest pain (2 sources) Chest pain 11-16-2022 Episodic Nutritional deficiencies (1 source) Vitamin D deficiency, unspecified; Translations: [VITAMIN D DEFICIENCY UNSPECIFIED] Onset: 05-04-2022 Chronic Osteoarthritis (4 sources) Degenerative joint disease of shoulder region; Translations: [Osteoarthritis] 08-31-2023 Chronic Other and unspecified benign neoplasm (1 source) Hyperplastic polyp of large intestine 10-10-2023 Episodic Other connective tissue disease (2 sources) Achilles tendinitis 11-16-2022 Episodic Other connective tissue disease (2 sources) Muscle pain 11-16-2022 Episodic Other connective tissue disease (2 sources) Plantar fasciitis 11-16-2022 Episodic Other gastrointestinal disorders (2 sources) Irritable bowel syndrome 03-17-2021 Chronic Other gastrointestinal disorders (1 source) Abnormal feces; Translations: [Other fecal abnormalities] Onset: 09-05-2023 Episodic Other liver diseases (2 sources) Elevated liver enzymes level 03-17-2021 Episodic Other lower respiratory disease (2 sources) Dyspnea 08-31-2023 Episodic Other nervous system disorders (2 sources) Peripheral nerve disease 03-17-2021 Chronic Other non-traumatic joint disorders (2 sources) Hip pain 11-16-2022 Episodic Other non-traumatic joint disorders (2 sources) Joint pain 11-16-2022 Episodic Other non-traumatic joint disorders (2 sources) Pathological dislocation of the shoulder joint 08-31-2023 Episodic Other nutritional; endocrine; and metabolic disorders (2 sources) Body mass index 30+ - obesity 09-05-2023 Chronic Other nutritional; endocrine; and metabolic disorders (2 sources) Obesity 09-05-2023 Chronic Other screening for suspected conditions (not mental disorders or infectious disease) (7 sources) Encounter for screening mammogram for malignant neoplasm of breast; Translations: [Encounter for screening for malignant neoplasm of rectum] Onset: 05-04-2022 Episodic Residual codes; unclassified (1 source) Family history of malignant neoplasm of breast; Translations: [FAMILY HX MALIG NEOPLASM OF BREAST] Onset: 09-27-2022 Episodic Residual codes; unclassified (1 source) Family history of malignant neoplasm of trachea, bronchus and lung; Translations: [FAM HX MALIG NEOPLSM TRACH BRON LNG] Onset: 09-27-2022 Episodic Residual codes; unclassified (1 source) Family history of malignant neoplasm of ovary; Translations: [FAM HX MALIGNANT NEOPLASM OVARY] Onset: 09-27-2022 Episodic Residual codes; unclassified (2 sources) Insomnia 03-17-2021 Episodic Spondylosis; intervertebral disc disorders; other back problems (2 sources) Low back pain 03-17-2021 Episodic Unclassified (3 sources) Patient encounter status; Translations: [Encounter for well woman exam with routine gynecological exam] 03-22-2021 Past or Other Problems Problem Classification Problem Date Documented Da te Episodic/Chronic Deficiency and other anemia (1 source) Anemia, unspecified; Translations: [ANEMIA UNSPECIFIED] Onset: 05-04-2022 Episodic Diabetes mellitus without complication (1 source) Other abnormal glucose; Translations: [OTHER ABNORMAL GLUCOSE] Onset: 05-04-2022 Episodic Other connective tissue disease (1 source) Achilles tendinitis, unspecified leg; Translations: [ACHILLES TENDINITIS UNSPECIFIED LEG] Onset: 05-04-2022 Episodic Other lower respiratory disease (1 source) Dyspnea, unspecified; Translations: [DYSPNEA UNSPECIFIED] Onset: 05-04-2022 Episodic Residual codes; unclassified (1 source) Insomnia, unspecified; Translations: [INSOMNIA UNSPECIFIED] Onset: 05-04-2022 Episodic Unclassified (2 sources) Rupture of rotator cuff of shoulder 11-16-2022 Results Test Name Value Interpretation Reference Range Facility Ambulatory Visit Summaryon 1 12-11-2022 Ambulatory Visit Summary MARYAM SOLOMON :1955 Visit Date:10/10/2023 Ambulatory Visit Instructions Your Care Team Attending Physician - YOHANA NARAYAN, Eron Huffman Primary Care Physician - Lala Watson MD This Is Your Medications List carvedilol (carvedilol 6.25 mg Tab) cyclobenzaprine (cyclobenzaprine 10 mg Tab) diclofenac (diclofenac sodium 75 mg Oral EC Tab) lisinopril (lisinopril 20 mg Tab) pantoprazole (Pantoprazole [address] Tab) paroxetine (paroxetine 40 mg Tab) simvastatin (simvastatin 20 mg Tab) zolpidem (zolpidem 10 mg oral tablet) Procedures Performed Colonoscopy (09/27/2023), Appendectomy (1976), Arthroplasty of right shoulder, Colonoscopy, Colonoscopy, Rotator cuff repair, Tonsillectomy, VH - Vaginal hysterectomy. Medications What How Much When Instructions Unchanged carvedilol (carvedilol 6.25 mg Tab) 1 Tablets By Mouth 2 times a day Unchanged cyclobenzaprine (cyclobenzaprine 10 mg Tab) 2 Tablets By Mouth At bedtime Unchanged diclofenac (diclofenac sodium 75 mg Oral EC Tab) 1 Tablets By Mouth 2 times a day Unchanged lisinopril (lisinopril 20 mg Tab) TAKE 2 TABLETS BY MOUTH EVERY DAY Unchanged pantoprazole (Pantoprazole [address] Tab) TAKE 1 TABLET BY MOUTH EVERY DAY Unchanged paroxetine (paroxetine 40 mg Tab) TAKE 1 TABLET BY MOUTH EVERY DAY Unchanged simvastatin (simvastatin 20 mg Tab) TAKE 1 TABLET BY MOUTH EVERY DAY Unchanged zolpidem (zolpidem 10 mg oral tablet) TAKE 1 TABLET BY MOUTH EVERY DAY AT BEDTIME NEEDED Allergies No Known Allergies Problems Ongoing - Any problem that you are currently receiving treatment for. Anxiety BMI 34.0-34.9,adult Degenerative joint disease Depression Fibrocystic disease of breast Gout Hiatal hernia Hyperlipidemia Hypertension IBS (irritable bowel syndrome) Increased liver enzymes Insomnia Low back pain syndrome Obesity Peripheral neuropathy Positive colorectal cancer screening using Cologuard test Screening for malignant neoplasm of colon Type 2 diabetes mellitus Historical - Any problem that you are no longer receiving treatment for. Achilles tendinitis Arthralgia Chest pain Degenerative joint disease of shoulder Displaced comminuted fracture of shaft of humerus, right arm, initial encounter for closed fracture Dyspnea Hip pain Myalgia Pathological dislocation of right shoulder, not elsewhere classified Plantar fasciitis Pressure urticaria Rotator cuff tear Patient Survey You may receive a survey via text or e-mail asking about your office visit. Please share your experience with us by completing your survey. We appreciate your feedback and thank you for choosing us for your care. Bigg Silverman [facility] General Surgery Office/Clini c Noteon 10-10-2023 General Surgery Office/Clinic Note Chief Complaint colonoscopy follow up HPI Staff 13 day post operative follow up post colonoscopy with rectal polypectomy. History of Present Illness f/u colonoscopy done for positive Cologuard; small hyperplastic rectal polyp removed; moderate sigmoid diverticulosis noted; patient doing well, no abd pain or blood in stolls. Review of Systems ROS - Provider Constitutional: no fever, no sweats, no weight loss. Eyes: no glasses, no blurred vision, no visual loss. ENMT: no dentures, no hoarseness, no swallowing difficulties, no hearing loss, no ear infection(s), no nose bleeds. Cardiovascular: normal blood pressure, no chest pain, regular heartbeat, no heart murmur. Respiratory: no shortness of breath, no cough, no asthma, no wheezing. Gastrointestinal: no nausea, no vomiting, no diarrhea, no constipation, no blood in stool, no change in bowel habits, no abdominal pain, no hepatitis. Genitourinary: no kidney stones, no urine infection, no dysuria. Musculoskeletal: no pain, no weakness. Skin: no changing moles, no rash, no skin lumps. Neurologic: no seizures, no epilepsy, no headache. Psychiatric: no emotional or psychiatric problem. Heme/Lymph: no bleeding problems, no anemia, no blood clots, no transfusions. Allergy/Immunologic: no swollen lymph nodes/glands, no IV drug abuse. Other: Additional ROS info: Except as noted in the above Review of Systems and in the History of Present Illness, all other systems have been reviewed and are negative or noncontributory. Assessment/Plan 1. Hyperplastic rectal polyp (K62.1: Rectal polyp) doing well; recommend screening colonoscopy in 10 years, call sooner if problems/questions. 2. Diverticulosis of sigmoid colon (K57.30: Diverticulosis of large intestine without perforation or abscess without bleeding) high fiber diet and daily fiber supplement Follow-up No qualifying data available Problem List/Past Medical History Ongoing Anxiety BMI 34.0-34.9,adult Degenerative joint disease Depression Diverticulosis of sigmoid colon Fibrocystic disease of breast Gout Hiatal hernia Hyperlipidemia Hyperplastic rectal polyp Hypertension IBS (irritable bowel syndrome) Increased liver enzymes Insomnia Low back pain syndrome Obesity Peripheral neuropathy Positive colorectal cancer screening using Cologuard test Screening for malignant neoplasm of colon Type 2 diabetes mellitus Historical Achilles tendinitis Arthralgia Chest pain Degenerative joint disease of shoulder Displaced comminuted fracture of shaft of humerus, right arm, initial encounter for closed fracture Dyspnea Hip pain Myalgia Pathological dislocation of right shoulder, not elsewhere classified Plantar fasciitis Pressure urticaria Rotator cuff tear Procedure/Surgical History Colonoscopy (09/27/2023), Appendectomy (1976), Arthroplasty of right shoulder, Colonoscopy, Colonoscopy, Rotator cuff repair, Tonsillectomy, VH - Vaginal hysterectomy. Medications carvedilol 6.25 mg Tab, 6.25 mg= 1 tab(s), Oral, BID cyclobenzaprine 10 mg Tab, 20 mg= 2 tab(s), Oral, Bedtime diclofenac sodium 75 mg Oral EC Tab, 75 mg= 1 tab(s), Oral, BID lisinopril 20 mg Tab Pantoprazole [address] Tab paroxetine 40 mg Tab simvastatin 20 mg Tab zolpidem 10 mg oral tablet Allergies No Known Allergies Social History Alcohol Current, Beer, 3-5 times per week, 09/05/2023 Substance Abuse - Denies Substance Abuse, 09/05/2023 Tobacco Never (less than 100 in lifetime) Tobacco Use:. Never Smokeless Tobacco Use:., 09/05/2023 Family History Diabetes mellitus type 2: Mother. Heart attack: Father. Heart disease: Mother, Father and Sister. Primary malignant neoplasm of lung: Brother. Immunizations Vaccine Date Status Comments influenza virus vaccine, inactivated 07/2023 Recorded influenza virus vaccine, inactivated 09/21/2022 Recorded SARS-CoV-2 (COVID-19) [id number] 09/21/2022 Recorded SARSCoV2 mRNA(nvtyxzyoe-rnjx-lz cros) vac 03/23/2022 Recorded SARS-CoV-2 (COVID-19) mRNA BNT-162b2 vax 08/09/2021 Recorded 2023-08-31: [id number] SARS-CoV-2 (COVID-19) mRNA BNT-162b2 vax 01/12/2021 Recorded SARS-CoV-2 (COVID-19) mRNA BNT-162b2 vax 12/21/2020 Recorded Normal [facility] Comment on above: Result Comment: Elec tronically Signed By: YOHANA NARAYAN, Eron Huffman\.br\Date and Time Signed: 10/10/23 14:58 EST Reminderson 10-10-2023 Reminders - From: Brigette Arce LPN To: [facility] - Clinical; Sent: 10/10/2023 14:44:13 EST Show up: 08/28/2033 07:00:00 EST Subject: colonoscopy recall Due Date/Time: 09/27/2033 07:00:00 EST Reminder/Recall Patient due for screening colonoscopy 09/27/2033. Normal [facility] Pathology Noteon 10-04-2023 Pathology Note [id number]#1. 00TIFF [facility] Outside Colonoscopyon 2022 Outside Colonoscopy [id number]#1.[address] [facility] Consent for Procedure/Surger yon 09-06-2023 Consent for Procedure/Surgery [id number]#1. 00TIFF [facility] Facesheeton 09-06-2023 Facesheet [id number]#1. 00TIFF [facility] Ambulatory Visit Summaryon 1 11-05-2022 Ambulatory Visit Summary MARYAM SOLOMON :1955 Visit Date:09/05/2023 Ambulatory Visit Instructions Your Diagnosis Positive colorectal cancer screening using Cologuard test Your Care Team Attending Physician - YOHANA NARAYAN, Eron Huffman Primary Care Physician - Shirley NARAYAN, Lala Referring Physician - Lala Watson MD This Is Your Medications List Contact prescribing physician if questions or concerns carvedilol (carvedilol 6.25 mg Tab) cyclobenzaprine (cyclobenzaprine 10 mg Tab) diclofenac (diclofenac sodium 75 mg Oral EC Tab) lisinopril (lisinopril 20 mg Tab) pantoprazole (Pantoprazole [address] Tab) paroxetine (paroxetine 40 mg Tab) simvastatin (simvastatin 20 mg Tab) zolpidem (zolpidem 10 mg oral tablet) Procedures Performed Appendectomy (1976), Arthroplasty of right shoulder, Colonoscopy, Colonoscopy, Rotator cuff repair, Tonsillectomy, VH - Vaginal hysterectomy. Discharge Vitals Heart Rate (Peripheral) 70 Respiratory Rate 16 Blood Pressure 152/94 Height 165 cm Height 65 in Weight 93.7 kg Weight 206.14 lb BMI 34.42 Medications What How Much When Instructions Unchanged carvedilol (carvedilol 6.25 mg Tab) 1 Tablets By Mouth 2 times a day Contact prescribing physician if questions or concerns Unchanged cyclobenzaprine (cyclobenzaprine 10 mg Tab) 2 Tablets By Mouth At bedtime Contact prescribing physician if questions or concerns Unchanged diclofenac (diclofenac sodium 75 mg Oral EC Tab) 1 Tablets By Mouth 2 times a day Contact prescribing physician if questions or concerns Unchanged lisinopril (lisinopril 20 mg Tab) TAKE 2 TABLETS BY MOUTH EVERY DAY Contact prescribing physician if questions or concerns Unchanged pantoprazole (Pantoprazole [address] Tab) TAKE 1 TABLET BY MOUTH EVERY DAY Contact prescribing physician if questions or concerns Unchanged paroxetine (paroxetine 40 mg Tab) TAKE 1 TABLET BY MOUTH EVERY DAY Contact prescribing physician if questions or concerns Unchanged simvastatin (simvastatin 20 mg Tab) TAKE 1 TABLET BY MOUTH EVERY DAY Contact prescribing physician if questions or concerns Unchanged zolpidem (zolpidem 10 mg oral tablet) TAKE 1 TABLET BY MOUTH EVERY DAY AT BEDTIME NEEDED Contact prescribing physician if questions or concerns Allergies No Known Allergies Problems Ongoing - Any problem that you are currently receiving treatment for. Anxiety BMI 34.0-34.9,adult Degenerative joint disease Depression Fibrocystic disease of breast Gout Hiatal hernia Hyperlipidemia Hypertension IBS (irritable bowel syndrome) Increased liver enzymes Insomnia Low back pain syndrome Obesity Peripheral neuropathy Positive colorectal cancer screening using Cologuard test Screening for malignant neoplasm of colon Type 2 diabetes mellitus Historical - Any problem that you are no longer receiving treatment for. Achilles tendinitis Arthralgia Chest pain Degenerative joint disease of shoulder Displaced comminuted fracture of shaft of humerus, right arm, initial encounter for closed fracture Dyspnea Hip pain Myalgia Pathological dislocation of right shoulder, not elsewhere classified Plantar fasciitis Pressure urticaria Rotator cuff tear Patient Survey You may receive a survey via text or e-mail asking about your office visit. Please share your experience with us by completing your survey. We appreciate your feedback and thank you for choosing us for your care. [facility] Lab Reportson 08-31-2023 Lab Reports [id number]#1.0 0TIFF [facility] Consultation Noteon 08-28-20 23 Consultation Note [id number] 0TIFF [facility] Physician Referralon 023 Physician Referral [id number] 0CD:127 Normal [facility] MG MAMM SCREEN 3D SERINA CADon 09-21-2022 MG MAMM SCREEN 3D SERINA CAD Patient: MARYAM SOLOMON Exam Date: 09/21/2022 : 1955 Gender:F Ordering : DR JANUSZ FLORES Admission #: [id number] Family : Order #: [id number] CLICK HERE TO VIEW EXAM RADIOLOGY REPORT PROCEDURE: MAMMOGRAM SCREENING 3D BILATERAL CAD COMPARISON: MG MAMM SCREEN 3D SERINA CAD, 08/25/2021. MG MAMM SCREEN SERINA W CAD, 07/01/2020. INDICATIONS: Screening mammography Calculator Name NCI Breast Cancer Risk Assessment Tool 5 Year Breast Cancer Risk 3.20% Lifetime Breast Cancer Risk 11.30% Personal Breast Cancer No Personal Ovarian Cancer No Treatments None Family Cancers Niece with breast cancer at age 53; Aunt-maternal with ovarian cancer at age 60; Mother with breast cancer at age 42; Aunt-paternal with breast cancer at age 55; Brother with lung cancer at age 62. LOCATION: [facility] BREAST COMPOSITION: Almost entirely fatty. FINDINGS: DIAGNOSTIC CATEGORY 2--BENIGN FINDING: RIGHT BREAST: No significant suspicious finding. No significant change has occurred. LEFT BREAST: No significant suspicious finding. Scattered benign-appearing lymph nodes are present. No significant change has occurred. RECOMMENDATIONS: ROUTINE MAMMOGRAM AND CLINICAL EVALUATION IN 12 MONTHS. PLEASE NOTE: A NORMAL MAMMOGRAM DOES NOT EXCLUDE THE POSSIBILITY OF BREAST CANCER. A CLINICALLY SUSPICIOUS PALPABLE LUMP SHOULD BE BIOPSIED. Dictated by: Matthew Reynoso M.D. on 09/21/2022 at 15:40 Approved by: Matthew Reynoso M.D. on 09/21/2022 at 15:46 Normal [facility] Cytologyon 08-22-2022 Cytology (NOTE) INTERPRETATION Cervical material, (ThinPrep vial, Imaging-assisted review): Specimen Adequacy: Satisfactory for evaluation. -Endocervical/transfor mation zone component is absent. Descriptive Diagnosis: Negative for intraepithelial lesion or malignancy. Pharmacy Tech Customer Service: EMILIANO Middleton(ASCP) Electronically Signed Out /08/26/2022 Source: A: Cervical material, (ThinPrep vial, Imaging-assisted review) Clinical History Hysterectomy Z01.419 Routine survey associate exam without abnormal findings High risk HPV DNA testing is requested if the diagnosis is abnormal GYNECOLOGIC CYTOLOGY REPORT Patient Name: MARYAM SOLOMON [facility] Rec: [id number] Path Number: [id number] [facility] ANATOMIC PATHOLOGY [address] [place] [id number] Normal [facility] Comment on above: Performed By: #### P PPVP #### [address] [address] Instrument Repair Specialist: Joey Rutherford MD CBC AUTO DIFFon 05-02-2022 BASO # 0.1 103/ul Normal 0.0-0.1 [facility] Comment on above: Performed By: #### C BC #### [facility] [address] [place] [address] Dr. Sona Cortez Basophils/100 WBC (Bld) 0.7 % Normal 0.2-2.0 [facility] Comment on above: Performed By: #### C BC #### [facility] [address] [place] [address] Dr. Sona Cortez EO # 0.2 103/ul Normal 0.0-0.7 [facility] Comment on above: Performed By: #### C BC #### [facility] [address] [place] [address] Dr. Sona Cortez Eosinophils/100 WBC (Bld) 2.1 % Normal 0.9-7.0 [facility] Comment on above: Performed By: #### C BC #### [facility] [address] [place] [address] Dr. Sona Cortez Erythrocyte distribution width (RBC) [Ratio] 12.1 % Normal 11.0-15.0 [facility] Comment on above: Performed By: #### C BC #### [facility] [address] [place] [address] Dr. Sona Cortez Hematocrit (Bld) [Volume fraction] 37.6 % Normal 36.0-48.0 [facility] Comment on above: Performed By: #### C BC #### [facility] [address] [place] [address] Dr. Sona Cortez Hemoglobin (Bld) [Mass/Vol] 12.5 g/dL Normal 12.0-16.0 [facility] Comment on above: Performed By: #### C BC #### [facility] [address] [place] [address] Dr. Sona Cortez IG # 0.01 10e3/ul Normal 0.00-0.03 [facility] Comment on above: Performed By: #### C BC #### [facility] [address] [place] [address] Dr. Sona Cortez IG % 0.1 % Normal 0.0-0.5 [facility] Comment on above: Performed By: #### C BC #### [facility] [address] [place] [address] Dr. Sona Cortez LYMPH # 2.0 103/ul Normal 1.2-3.8 [facility] Comment on above: Performed By: #### C BC #### [facility] [address] [place] [address] Dr. Sona Cortez Lymphocytes/100 WBC (Bld) 28.3 % Normal 20.5-60.0 [facility] Comment on above: Performed By: #### C BC #### [facility] [address] [place] [address] Dr. Sona Cortez MANUAL DIFF REQ NO Normal [facility] Comment on above: Performed By: #### C BC #### [facility] [address] [place] [address] Dr. Sona Cortez MCH (RBC) [Entitic mass] 31.9 pg Normal 26.7-34.0 [facility] Comment on above: Performed By: #### C BC #### [facility] [address] [place] [address] Dr. Sona Cortez MCHC (RBC) [Mass/Vol] 33.2 g/dL Normal 29.9-35.2 [facility] Comment on above: Performed By: #### C BC #### [facility] [address] [place] [address] Dr. Sona Cortez MCV (RBC) [Entitic vol] 95.9 fL Normal 81.0-99.0 [facility] Comment on above: Performed By: #### C BC #### [facility] [address] [place] [address] Dr. Sona Cortez MONO # 0.4 103/ul Normal 0.3-0.8 [facility] Comment on above: Performed By: #### C BC #### [facility] [address] [place] [address] Dr. Sona Cortez Monocytes/100 WBC (Bld) 5.7 % Normal 1.7-12.0 [facility] Comment on above: Performed By: #### C BC #### [facility] [address] [place] [address] Dr. Sona Cortez NEUT # 4.4 103/ul Normal 1.4-6.5 [facility] Comment on above: Performed By: #### C BC #### [facility] [address] [place] [address] Dr. Sona Cortez Neutrophils/100 WBC (Bld) 63.1 % Normal 43.0-75.0 [facility] Comment on above: Performed By: #### C BC #### [facility] [address] [place] [address] Dr. Sona Cortez Platelet mean volume (Bld) [Entitic vol] 8.5 fL Critically low 9.5-13.5 [facility] Comment on above: Performed By: #### C BC #### [facility] [address] [address] [address] Sona Cortez PLT 313 103/ul Normal 150-450 [facility] Comment on above: Performed By: #### C BC #### [facility] [address] [address] [address] Sona Cortez RBC 3.92 106/ul Critically low 4.20-5.40 [facility] Comment on above: Performed By: #### C BC #### [facility] [address] [address] [address] Sona Cortez WBC 7.0 103/ul Normal 4.0-11.0 [facility] Comment on above: Performed By: #### C BC #### [facility] [address] [place] [address] Dr. Sona Cortez FREE THYROXINE INDEX T7on FTI 2.31 Normal 1.30-4.50 [facility] Comment on above: Performed By: #### U ANNABELLE, T7, TSH, CMP, LIPID #### [facility] [address] [place] [address] Dr. Sona Cortez T3U 33.0 % Normal 30.0-39.0 [facility] Comment on above: Performed By: #### U ANNABELLE, T7, TSH, CMP, LIPID #### [facility] [address] [address] [address] Sona Cortez T4 [Mass/Vol] 7.00 ug/dL Normal 4.80-13.90 [facility] Comment on above: Performed By: #### U ANNABELLE, T7, TSH, CMP, LIPID #### [facility] [address] [place] [address] Dr. Sona Cortez GLYCOHEMOGLOBIN A1Con 2021 ADA RECOMMENDATION SEE BELOW Normal [facility] Comment on above: Result Comment: ADA RECOMMENDED LIMIT 4.0 - 6.0 ADA THERAPEUTIC TARGET < 7.0 ACTION SUGGESTED > 7.0 Performed By: #### A 1C #### [facility] [address] [address] [address] Sona Cortez Glucose [Mass/Vol] 131 mg/dL Normal [facility] Comment on above: Performed By: #### A 1C #### [facility] [address] [place] [address] Dr. Sona Cortez HbA1c (Bld) [Mass fraction] 6.2 % Normal 4.5-6.2 [facility] Comment on above: Performed By: #### A 1C #### [facility] [address] [place] [address] Dr. Sona Cortez IRONon 05-02-2022 Iron [Mass/Vol] 98.0 ug/dL Normal 50.0-170.0 [facility] Comment on above: Performed By: #### V ITAD, IRON #### [facility] [address] [place] [address] Dr. Sona Cortez LIPID PROFILEon 05-02-2022 CHOL-HDL RATIO NORM SEE BELOW Normal [facility] Comment on above: Result Comment: 3.3 - 4.4 LOW RISK 4.4 - 7.1 AVERAGE RISK 7.1 - 11.0 MODERATE RISK >11.0 HIGH RISK Performed By: #### V ITAD, IRON #### [facility] [address] [place] [address] Dr. Sona Cortez Cholesterol [Mass/Vol] 187 mg/dL Normal <=200 [facility] Comment on above: Performed By: #### V ITAD, IRON #### [facility] [address] [place] [address] Dr. Sona Cortez Cholesterol in HDL [Mass/Vol] 59 mg/dL Normal 40-60 [facility] Comment on above: Performed By: #### V ITAD, IRON #### [facility] [address] [place] [address] Dr. Sona Cortez Cholesterol in LDL [Mass/Vol] 94.8 mg/dL Normal [facility] Comment on above: Performed By: #### V ITAD, IRON #### [facility] [address] [place] [address] Dr. Sona Cortez Cholesterol.total/Ch olesterol in HDL [Mass ratio] 3.2 {ratio} Normal [facility] Comment on above: Performed By: #### V ITAD, IRON #### [facility] [address] [address] [address] Sona Cortez HDL NORMAL > or = 60 mg/dl - LO W CARDIOVASCULAR RISK <40 mg/dl - HIGH CARDIOVASCULAR RISK Normal [facility] Comment on above: Performed By: #### V ITAD, IRON #### [facility] [address] [place] [address] Dr. Sona Cortez LDL CALC NORMAL SEE BELOW Normal [facility] Comment on above: Result Comment: <100 mg/dl OPTIMAL 100 - 129 mg/dl NEAR OR ABOVE OPTIMAL 130 - 159 mg/dl BORDERLINE HIGH 160 - 189 mg/dl HIGH >190 mg/dl VERY HIGH Performed By: #### V ITAD, IRON #### [facility] [address] [place] [address] Dr. Sona Cortez Triglyceride [Mass/Vol] 166 mg/dL Critically high <=150 [facility] Comment on above: Performed By: #### V ITAD, IRON #### [facility] [address] [place] [address] Dr. Sona Cortez VLDL CALC 33.2 mg/dL Normal [facility] Comment on above: Performed By: #### V ITAD, IRON #### [facility] [address] [place] [address] Dr. Sona Cortez PROF 14(COMP METB)on 022 Albumin [Mass/Vol] 4.1 g/dL Normal 3.4-5.0 [facility] Comment on above: Performed By: #### U ANNABELLE, T7, TSH, CMP, LIPID #### [facility] [address] [place] [address] Dr. Sona Cortez Albumin/Globulin [Mass ratio] 1.2 {ratio} Normal [facility] Comment on above: Performed By: #### U ANNABELLE, T7, TSH, CMP, LIPID #### [facility] [address] [address] [address] Sona Cortez ALP [Catalytic activity/Vol] 87 U/L Normal 46-116 [facility] Comment on above: Performed By: #### U ANNABELLE, T7, TSH, CMP, LIPID #### [facility] [address] [address] [address] Sona Cortez ALT [Catalytic activity/Vol] 31 U/L Normal 14-59 [facility] Comment on above: Performed By: #### U ANNABELLE, T7, TSH, CMP, LIPID #### [facility] [address] [address] [address] Sona Cortez Anion gap [Moles/Vol] 14.8 mmol/L Normal [facility] Comment on above: Performed By: #### U ANNABELLE, T7, TSH, CMP, LIPID #### [facility] [address] [place] [address] Dr. Sona Cortez AST [Catalytic activity/Vol] 17 U/L Normal 15-37 [facility] Comment on above: Performed By: #### U ANNABELLE, T7, TSH, CMP, LIPID #### [facility] [address] [place] [address] Dr. Sona Cortez Bilirubin [Mass/Vol] 0.4 mg/dL Normal 0.2-1.0 [facility] Comment on above: Performed By: #### U ANNABELLE, T7, TSH, CMP, LIPID #### [facility] [address] [place] [address] Dr. Sona Cortez Calcium [Mass/Vol] 9.1 mg/dL Normal 8.5-10.1 [facility] Comment on above: Performed By: #### U ANNABELLE, T7, TSH, CMP, LIPID #### [facility] [address] [place] [address] Dr. Sona Cortez Chloride [Moles/Vol] 100 mmol/L Normal 98-107 [facility] Comment on above: Performed By: #### U ANNABELLE, T7, TSH, CMP, LIPID #### [facility] [address] [address] [address] Sona Cortez CO2 [Moles/Vol] 27.4 mmol/L Normal 21.0-32.0 [facility] Comment on above: Performed By: #### U ANNABELLE, T7, TSH, CMP, LIPID #### [facility] [address] [address] [address] Snoa Cortez Creatinine [Mass/Vol] 1.05 mg/dL Critically high 0.55-1.02 [facility] Comment on above: Performed By: #### U ANNABELLE, T7, TSH, CMP, LIPID #### [facility] [address] [place] [address] Dr. Sona Cortez EGFR-AF MOSOTHO >60 Normal >=60 [facility] Comment on above: Performed By: #### U ANNABELLE, T7, TSH, CMP, LIPID #### [facility] [address] [place] [address] Dr. Sona Cortez EGFR-NON AF MOSOTHO 52 mL/min/1.73m2 Critically low >=60 [facility] Comment on above: Performed By: #### U ANNABELLE, T7, TSH, CMP, LIPID #### [facility] [address] [place] [address] Dr. Sona Cortez Globulin (S) [Mass/Vol] 3.5 g/dL Normal [facility] Comment on above: Performed By: #### U ANNABELLE, T7, TSH, CMP, LIPID #### [facility] [address] [place] [address] Dr. Sona Cortez Glucose [Mass/Vol] 149 mg/dL Critically high 74-106 [facility] Comment on above: Performed By: #### U ANNABELLE, T7, TSH, CMP, LIPID #### [facility] [address] [place] [address] Dr. Sona Cortez Potassium [Moles/Vol] 4.2 mmol/L Normal 3.5-5.1 [facility] Comment on above: Performed By: #### U ANNABELLE, T7, TSH, CMP, LIPID #### [facility] [address] [place] [address] Dr. Sona Cortez Protein [Mass/Vol] 7.6 g/dL Normal 6.4-8.2 [facility] Comment on above: Performed By: #### U ANNABELLE, T7, TSH, CMP, LIPID #### [facility] [address] [address] [address] Sona Cortez Sodium [Moles/Vol] 138 mmol/L Normal 136-145 [facility] Comment on above: Performed By: #### U ANNABELLE, T7, TSH, CMP, LIPID #### [facility] [address] [address] [address] Sona Cortez Urea nitrogen [Mass/Vol] 17.0 mg/dL Normal 7.0-18.0 [facility] Comment on above: Performed By: #### U ANNABELLE, T7, TSH, CMP, LIPID #### [facility] [address] [address] [address] Sona Cortez Urea nitrogen/Creatinine [Mass ratio] 16.2 mg/mg Normal [facility] Comment on above: Performed By: #### U ANNABELLE, T7, TSH, CMP, LIPID #### [facility] [address] [address] [address] Sona Cortez TSHon 05-02-2022 TSH 2.358 uIU/mL Normal 0.358-3.740 [facility] Comment on above: Performed By: #### U ANNABELLE, T7, TSH, CMP, LIPID #### [facility] [address] [address] [address] Sona Cortez URIC ACID SERUMon 05-02-2022 Urate [Mass/Vol] 5.2 mg/dL Normal 2.6-6.0 [facility] Comment on above: Performed By: #### U ANNABELLE, T7, TSH, CMP, LIPID #### [facility] [address] [place] [address] Dr. Sona Cortez VITAMIN D 25 OHon 05-02-2022 VIT D 25-OH 15.6 ng/mL Normal [facility] Comment on above: Performed By: #### V ITAD, IRON #### [facility] [address] [place] [address] Dr. Sona Cortez VIT D RANGES SEE BELOW Normal [facility] Comment on above: Result Comment: <20 ng/mL Vit D deficient 20 - <30 ng/mL Vit D insufficient 30 - 100 ng/mL Vit D sufficient >100 ng/mL Potential Toxicity Performed By: #### V ITAD, IRON #### [facility] [address] [place] [address] Dr. Sona Cortez Operative Reporton 9 Operative Report MR#: [id number] I [facility] Pt. Name: Maryam Solomon Room #: [id number] Discharge 08/03/2019 Date: Birthdate: 1955 OPERATIVE REPORT DATE OF SURGERY: 08/02/2019 SURGEON: Krishna Sofia MD CHAR FILTER TANK TENDER: Tirso Gonzales MD. 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 PROCEDURE PERFORMED: 1. Right reverse total shoulder replacement. 2. Open biceps tenodesis. ANESTHESIA: General with local nerve block. FLUIDS: As per Anesthesia records. ESTIMATED BLOOD LOSS: 200 mL. DRAINS: None. SPECIMENS: None. COMPLICATIONS: None. IMPLANT: Tornier reverse total shoulder prosthesis with: 1. Base plate, size 25 with 2 non-locking and 2 locking screws, 2. Glenosphere size 36/+4, a 3. Aequalis flex stem size 2B, 4. Standard tray with central offset, and a 6 mm poly insert. EXPLANTS: None. OPERATIVE INDICATION: The patient is a 63-year-old female patient, who has failed massive right shoulder rotator cuff repair with subsequent cuff tear arthropathy and glenohumeral osteoarthritis. She has failed conservative management and was deemed an appropriate candidate to proceed to the above-mentioned procedures after all risks and benefits of the procedures have been explained to the patient. DESCRIPTION OF PROCEDURE: The patient was greeted in the preoperative holding area by me. The patient's right upper extremity was marked with my initials. Informed consent was obtained and all questions were answered. Prophylactic antibiotics were administrated. The patient was taken back to the operating theater, placed in supine position on the operating table. Anesthesia was induced without complications. The patient was then subsequently placed in beach chair position and secured to the table. The right upper extremity was prepped and draped in a normal sterile fashion. A time-out was performed confirming correct patient, correct procedure, and correct laterality. We then proceeded to adilene our skin incision, approximately 15 cm skin incision using the coracoid as our landmark and extending from the coracoid along the deltopectoral groove. The 10 blade was used to make the skin incision. Dissection was carried down bluntly through the subcutaneous fat and 2 Gelpi retractors were used to retract the subcutaneous fat to go deeper with our incision. Hemostasis was performed of any bleeding vessels. We then identified the deltopectoral groove between the deltoid and pectoralis major and used the cephalic vein as our landmark. The deltoid and the cephalic vein were retracted laterally, while the pectorals major was retracted medially. We also performed a release of the proximal 2 cm of the pectorals major insertion into the humerus. We then identified the coracoid process and performed release of the coracoacromial ligament. We also performed subdeltoid and subacromial releases to facilitate placement of our brown deltoid retractor underneath the deltoid muscle to retract the deltoid muscle and improve exposure. We then identified the strap muscles (conjoint tendon). We then palpated the bicipital groove and identified the biceps tendon in the biceps groove. The biceps tendon was cut and a tag stitch was used to retract the tendon distally. We then followed the track of the biceps tendon in the bicipital groove all the way to the coracoid to identify the upper border of the subscapularis. It was noted that the subscapularis was torn and retracted. We then identified the inferior border of subscapularis using the tendon of the latissimus dorsi and circumflex humeral vessels that were ligated. We then peeled the remnants of the subscapularis from the lesser tuberosity. This was achieved using Bovie. We then used tag stitches to tag the remnants of the subscapularis using Ethibond stitches to retract the subscapularis remnant and facilitate exposure. This gave us access to the humeral head. We then progressively externally rotated the shoulder in adduction, performing release of the capsular attachment to the inferior humeral neck to facilitate exposure. We then used Bovie to adilene our humeral head cut at the level of the anatomical neck of the humerus. We also verified our proposed humeral cut with the external guide. We planned to do 20 degrees of retroversion of the humeral head. We then used saw to perform our humeral cut. Resected humeral head was then removed. We then used a canal Finder to identify the medullary canal of the humerus. We then used sounders and compactors to prep the medullary canal for insertion of the humeral stem and we used version rods to confirm 20 degrees of retroversion of the humeral component. We reamed up to size 2 and we placed size 2 trial stem into the humeral head, and we used a mission planner to make sure the stem was flushed with our humeral cut. Attention was then turned into the glenoid where a Fukuda retractor was placed on the posterior aspect of the glenoid as well as an anterior retractor was used underneath the subscapularis over the anterior aspect of the glenoid. We then performed circumferential release of the remnants of the glenoid labrum and at the 6 o'clock position, we carefully used a Hohmann and a Bovie to perform subperiosteal release of the glenoid labrum staying flush on bone to ensure protection of the axillary nerve. We then used the guide to place our guidewire into the center of the glenoid. We made sure the guide was flush with the inferior border of the glenoid to prevent any scapular notching. We also used 10 degree cephalic tilt. After insertion of the wire, we then used the circumferential reamer to prep the glenoid to remove any cartilage remnants from the articular surface of the glenoid. Next, we used the drill bit to create the trough for the central peg for the base plate insertion to a depth of 15 mm. We then used a curette to remove any cartilage remnants and ensured that we are down to subchondral bone. The wound was then copiously irrigated with saline and the guidewire was removed and then we proceeded with placement of our 25 mm base plate. The base plate was inserted with a press-fit with a very good purchase to the bone and an impactor and mallet was used to confirm excellent press fit. We then proceeded with fixation of the base plate and this was achieved using 2 superior inferior compression screws and then 2 anteroposterior locking screws. We then used a half reamer around the inserted base plate to make sure there are no bony lips or osteophytes before insertion of the glenosphere. We then proceeded with insertion of the glenosphere size 36/+4 mm for lateralization. The glenosphere was inserted and screwed as well as impacted with an impactor and mallet. This concluded the end of the glenoid component. We then turned our attention again into the humeral component and we then fitted a standard tray (central offset) with a 6 mm poly insert on top of the humeral stem, and trial of reduction of the prosthesis was then performed. The range of motion was tested and the patient was found to have excellent range of motion in forward elevation in the scapular plane as well as external rotation and internal rotation, and excellent stability of the glenohumeral joint was achieved with our trial components as well. We then copiously irrigated the humeral canal with normal saline. We then proceeded with placement of the actual stem. The stem was size 2B stem and with standard tray with central offset and with a 6 mm poly insert. We then reduced the actual components and again range of motion and stability testing were confirmed with excellent stability and good range of motion. This concluded the end of the procedure. We proceeded with copious irrigation of the wound with normal saline. Again, the subscapularis was only remnant and decision was to not perform any subscapularis repair since it was torn and retracted and replaced with fibrofatty tissue. We then performed tenodesis of the biceps tendon to the pectorals major using FiberWire stitch. We then proceeded with closure of the deltopectoral groove using Ethibond #2. We then proceeded with closure of the subcutaneous fat using 3-0 Vicryl and proceed with closure of the skin in a subcuticular manner using 3-0 Monocryl, and Dermabond was applied on top and the wound was then cleaned and dried. Dry dressing was applied with Aquacel dressing. The patient was then subsequently placed in a regular sling. The patient was then subsequently awakened from anesthesia without complications, transferred to PACU in a stable condition and then subsequently admitted to the hospital and transferred to the floor. PLAN: The patient will be nonweightbearing on the right upper extremity over the next 2 weeks and will use a sling all the time. The patient will be staying overnight for observation and she will be discharged to home with appropriate narcotics for postoperative pain control. The patient will not remove the dressing until followup in the office within 10-12 days unless the dressing is massively soaked. Electronically Signed by: Krishna Sofia MD 08/11/2019 11:39 A Krishna Sofia MD Date Dict: 08/04/2019/09:25 P/Krishna Sofia MD Date Trans: 08/05/2019 01:24 A/macho [id number] cc: Lala Watson M.D. [address], [place] [address] Normal [facility] BASIC METABOLIC PANELon 07-23 Calcium [Mass/Vol] 8.9 mg/dL Normal 8.6-10.3 [facility] Comment on above: Order Comment: No: D o not add to previous draw Performed By: #### 5 6101 #### [facility] [address] [place] [address], [facility] Chloride [Moles/Vol] 104 mmol/L Normal 98-107 [facility] Comment on above: Order Comment: No: D o not add to previous draw Performed By: #### 5 6101 #### [facility] [address] [place] [address], [place] CO2 [Moles/Vol] 30 mmol/L Normal 21-31 [facility] Comment on above: Order Comment: No: D o not add to previous draw Performed By: #### 5 6101 #### [facility] [address] [place] [address], [facility] Creatinine [Mass/Vol] 0.94 mg/dL Normal 0.60-1.20 [facility] Comment on above: Order Comment: No: D o not add to previous draw Performed By: #### 5 6101 #### [facility] [address] [place] [address], [place] GFR/1.73 sq M predicted among blacks MDRD (S/P/Bld) [Vol rate/Area] mL/min/{1.73_m2} Normal >60 [facility] Comment on above: Order Comment: No: D o not add to previous draw Performed By: #### 5 6101 #### [facility] [address] [place] [address], [facility] GFR/1.73 sq M predicted among non-blacks MDRD (S/P/Bld) [Vol rate/Area] mL/min/{1.73_m2} Normal >60 [facility] Comment on above: Order Comment: No: D o not add to previous draw Performed By: #### 5 6101 #### [facility] [address] [place] [address], [place] Glucose [Mass/Vol] 136 mg/dL High 70-100 [facility] Comment on above: Order Comment: No: D o not add to previous draw Performed By: #### 5 6101 #### [facility] [address] [place] [address], [facility] Potassium [Moles/Vol] 4.4 mmol/L Normal 3.5-5.1 [facility] Comment on above: Order Comment: No: D o not add to previous draw Performed By: #### 5 6101 #### [facility] [address] [place] [address], [place] Sodium [Moles/Vol] 141 mmol/L Normal 136-145 [facility] Comment on above: Order Comment: No: D o not add to previous draw Performed By: #### 5 6101 #### [facility] [address] [place] [address], [place] Urea nitrogen [Mass/Vol] 12 mg/dL Normal 7-25 [facility] Comment on above: Order Comment: No: D o not add to previous draw Performed By: #### 5 6101 #### [facility] [address] [place] [address], [place] CBC W/DIFFon 08-03-2019 ABS BASOPHILS 0.0 10*3/uL Normal 0.0-0.2 [facility] Comment on above: Order Comment: No: D o not add to previous draw Performed By: #### 5 6101 #### [facility] [address] [place] [address], [facility] ABS IMM GRANS 0.1 10*3/uL Normal 0.0-0.2 [facility] Comment on above: Order Comment: No: D o not add to previous draw Performed By: #### 5 6101 #### [facility] [address] [place] [address], [facility] ABS NEUTROPHILS 8.0 10*3/uL High 1.6-7.6 [facility] Comment on above: Order Comment: No: D o not add to previous draw Performed By: #### 5 6101 #### [facility] [address] [facility] [place] [address], [facility] Basophils/100 WBC (Bld) 0.1 % Normal 0.0-1.0 [facility] Comment on above: Order Comment: No: D o not add to previous draw Performed By: #### 5 6101 #### [facility] [address] [facility] [place] [address], [facility] Eosinophils (Bld) [#/Vol] 0.0 10*3/uL Normal 0.0-0.5 [facility] Comment on above: Order Comment: No: D o not add to previous draw Performed By: #### 5 6101 #### [facility] [address] [facility] [place] [address], [facility] Eosinophils/100 WBC (Bld) 0.0 % Normal 0.0-6.0 [facility] Comment on above: Order Comment: No: D o not add to previous draw Performed By: #### 5 6101 #### [facility] [address] [place] [address], [facility] Erythrocyte distribution width (RBC) [Ratio] 12.1 % Normal 11.5-15.0 [facility] Comment on above: Order Comment: No: D o not add to previous draw Performed By: #### 5 6101 #### [facility] [address] [place] [address], [facility] Hematocrit (Bld) [Volume fraction] 29.4 % Low 36.0-45.0 [facility] Comment on above: Order Comment: No: D o not add to previous draw Performed By: #### 5 6101 #### [facility] [address] [place] [address], [facility] Hemoglobin (Bld) [Mass/Vol] 9.5 g/dL Low 12.0-15.0 [facility] Comment on above: Order Comment: No: D o not add to previous draw Performed By: #### 5 6101 #### [facility] [address] [facility] [place] [address], [facility] IMMATURE GRANS 0.5 % Normal 0.0-1.0 [facility] Comment on above: Order Comment: No: D o not add to previous draw Performed By: #### 5 6101 #### [facility] [address] [facility] [place] [address], [facility] Lymphocytes (Bld) [#/Vol] 1.3 10*3/uL Normal 1.2-4.0 [facility] Comment on above: Order Comment: No: D o not add to previous draw Performed By: #### 5 6101 #### [facility] [address] [facility] [place] [address], [facility] Lymphocytes/100 WBC (Bld) 13.1 % Low 20.0-45.0 [facility] Comment on above: Order Comment: No: D o not add to previous draw Performed By: #### 5 6101 #### [facility] [address] [place] [id number], [facility] MCH (RBC) [Entitic mass] 32.0 pg Normal 27.0-33.0 [facility] Comment on above: Order Comment: No: D o not add to previous draw Performed By: #### 5 6101 #### [facility] [address] [place] [address], [facility] MCHC (RBC) [Mass/Vol] 32.3 g/dL Normal 32.0-35.0 [facility] Comment on above: Order Comment: No: D o not add to previous draw Performed By: #### 5 6101 #### [facility] [address] [place] [id number], [facility] MCV (RBC) [Entitic vol] 99.0 fL High 82.0-98.0 [facility] Comment on above: Order Comment: No: D o not add to previous draw Performed By: #### 5 6101 #### [facility] [address] [facility] [place] [address], [facility] Monocytes (Bld) [#/Vol] 0.7 10*3/uL Normal 0.1-1.0 [facility] Comment on above: Order Comment: No: D o not add to previous draw Performed By: #### 5 6101 #### [facility] [address] [place] [address], [facility] MONOS 7.2 % Normal 5.0-12.0 [facility] Comment on above: Order Comment: No: D o not add to previous draw Performed By: #### 5 6101 #### [facility] [address] [place] [address], [facility] Neutrophils/100 WBC (Bld) 79.1 % High 40.0-72.0 [facility] Comment on above: Order Comment: No: D o not add to previous draw Performed By: #### 5 6101 #### [facility] [address] [place] [id number], [facility] Nucleated RBC/100 WBC (Bld) [Ratio] 0 % Normal 0-0 [facility] Comment on above: Order Comment: No: D o not add to previous draw Performed By: #### 5 6101 #### [facility] [address] [place] [address], [facility] PLAT CNT 264 10*3/uL Normal 150-[address] [facility] Comment on above: Order Comment: No: D o not add to previous draw Performed By: #### 5 6101 #### [facility] [address] [place] [address], [facility] RBC (Bld) [#/Vol] 2.97 10*6/uL Low 3.80-5.00 [facility] Comment on above: Order Comment: No: D o not add to previous draw Performed By: #### 5 6101 #### [facility] [address] [place] [address], [facility] WBC (Bld) [#/Vol] 10.07 10*3/uL Normal 4.00-10.60 [facility] Comment on above: Order Comment: No: D o not add to previous draw Performed By: #### 5 6101 #### [facility] [address] [place] [address], [facility] POC GLUCOSE LABon 08-02-2019 Glucose [Mass/Vol] 95 mg/dL Normal 70-100 [facility] Comment on above: Performed By: #### 5 6101 #### [facility] [address] [facility] [place], [place] [id number] [place] [address] PORTABLE SHOULDER RIGHT 2 VW Son 08-02-2019 PORTABLE SHOULDER RIGHT 2 VWS [facility] Department of Radiology [address] [place] [address] ======== Patient Name: MARYAM SOLOMON : 1955 Sex: F Age: Race: White Pt. Location: [id number] Patient Status: I Ordered Date: 08/02/2019 5:55:00 PM Completed Date: 08/02/2019 06:34 PM Requesting Provider: TIRSO GONZALES Attending Provider: KRISHNA SOFIA Report Copy To: Signs & Symptoms: Pain ( specify Location) History: See Comments Comments: Hardware Evaluation Exam: PORTABLE SHOULDER RIGHT 2 S ======== PORTABLE SHOULDER RIGHT 2 [facility] 08/02/2019 6:34 PM EDT SIGNS AND SYMPTOMS: Pain ( specify Location) TECHNOLOGIST COMMENTS: post-op hardware evaluation QUESTION FOR THE RADIOLOGIST: Hardware Evaluation PROTOCOL: AP,Grashey and Scapular Y views were obtained. COMPARISON: July 02, 2019 FINDINGS: Status post right reversed shoulder arthroplasty, no evidence of hardware complication. Postsurgical changes in the soft tissue noted. IMPRESSION: 1. Status post reversed right shoulder arthroplasty with no evidence of hardware complication. Approved by:Vilma Amaya on 08/02/2019 6:54 PM EDT. I, Gayle Rowe, have reviewed the images and report and concur with these findings. Electronically signed by:Gayle Rowe. Transcribed by: [email or web address], User Resident: VILMA AMAYA Electronically Signed by: GAYLE ROWE @ 08/02/2019 07:31 PM I personally read this/these film(s) with this resident Normal [facility] Comment on above: Order Comment: No: D o not add to previous draw CT 3D UPPER EXTREMITY WO CON TRAST RIGHTon 07-10-2019 CT 3D UPPER EXTREMITY WO CONTRAST RIGHT [facility] Department of Radiology [address] [place] [id number] ======== Patient Name: MARYAM SOLOMON : 1955 Sex: F Age: Race: White Pt. Location: Patient Status: D Ordered Date: 07/02/2019 3:40:00 PM Completed Date: 07/10/2019 04:05 PM Requesting Provider: KRISHNA SOFIA Attending Provider: KRISHNA SOFIA Report Copy To: LALA WATSON Signs & Symptoms: M25.811 Other specified joint disorders, right shoulder I10 History: Marie, no pc per todd @ [employer] cpt code 42408 *mla Comments: right shoulder for surgical planning Exam: CT 3D UPPER EXTREMITY WO CONTRAST RIGHT ======== CT 3D UPPER EXTREMITY WO CONTRAST RIGHT 07/10/2019 4:05 PM EDT SIGNS AND SYMPTOMS: M25.811 Other specified joint disorders, right shoulder I10 TECHNOLOGIST COMMENTS:pre op for partial right shoulder replacement pain in right shoulder since fall recently hx tear to rotator cuff QUESTION FOR THE RADIOLOGIST: right shoulder for surgical planning PROTOCOL: Axial CT images of the extremity were obtained without IV contrast. TECHNIQUE: Multidetector CT axial slices of the right shoulder were obtained without IV contrast. Multiplanar reformats, MIP, volume rendered 3-D images were generated on a separate workstation and reviewed to further define anatomy and possible pathology. COMPARISON: None. FINDINGS: Skeleton: Hill-Sachs deformity. No bony Bankart. Glenoid is intact. There are small calcific loose bodies within the inferior joint. Subacromial space is narrowed to 3 mm. Muscles: Curvilinear bony density within the infraspinatus approximately 3 x 2 x 0.5 cm. This could be remnant of the Hill-Sachs deformity or heterotopic ossification within previously injured infraspinatus tear. The right infraspinatus shows clear atrophy relative to the left which would imply chronic tendon tear. Likewise the subscapularis and supraspinatus show muscle atrophy not seen on the opposite side which would imply rotator cuff tear, although not necessarily complete. Tendons: As above. Joint cavity: There may be a small joint effusion and some bursitis. IMPRESSION: 1. Previous anterior dislocation injury with Hill-Sachs bony defect but no bony Bankart component. Glenoid is intact. 2. Joint cavity shows effusion with small dependent calcific loose bodies. 3. Rotator cuff shows extensive muscle atrophy implying at least partial infraspinatus, supraspinatus and subscapularis tears, although these are not strikingly retracted. 4. Curvilinear bony density in the infraspinatus measuring 3 x 2 x 0.5 cm may reflect residual bony fragment from the proximal humeral fracture or heterotopic ossification from prior cuff injury. Electronically signed by:Los Odonnell. Transcribed by: [email or web address], User Resident: Electronically Signed by: LOS ODONNELL @ 07/10/2019 04:22 PM Normal [facility] Comment on above: Order Comment: No: D o not add to previous draw SHOULDER RIGHTon 07-02-2019 SHOULDER RIGHT [facility] Department of Radiology [address] [place] [id number] ======== Patient Name: MARYAM SOLOMON : 1955 Sex: F Age: Race: White Pt. Location: Patient Status: O Ordered Date: 07/02/2019 3:00:00 PM Completed Date: 07/02/2019 03:10 PM Requesting Provider: KRISHNA SOFIA Attending Provider: KRISHNA SOFIA Report Copy To: Signs & Symptoms: M25.519 Pain in unspecified shoulder I10 History: Marie Comments: , , , Ordering Provider - KRISHNA SOFIA MD , Exam: SHOULDER RIGHT ======== SHOULDER RIGHT 07/02/2019 3:10 PM EDT SIGNS AND SYMPTOMS: M25.519 Pain in unspecified shoulder I10 TECHNOLOGIST COMMENTS: ortho consult pt states getting shoulder replacement surgery QUESTION FOR THE RADIOLOGIST: , , , Ordering Provider - KRISHNA SOFIA MD , PROTOCOL: COMPARISON: September 04, 2018 FINDINGS: Soft tissues: Unchanged Bones: Healing proximal humerus Joints: Progression of cephalic migration and subacromial narrowing IMPRESSION: 1. Healing proximal humeral fracture, likely Hill-Sachs defect. No bony Bankart. 2. AC joint arthritis and subacromial narrowing with cephalic migration of humeral head indicating rotator cuff pathology as well as shoulder instability Electronically signed by:Los Odonnell. Transcribed by: [email or web address], User Resident: Electronically Signed by: LOS ODONNELL @ 07/02/2019 03:41 PM Normal [facility] Comment on above: Order Comment: No: D o not add to previous draw Operative Reporton 9 Operative Report MR#: [id number] S [facility] Pt. Name: Maryam Solomon Room #: 9D Discharge 11/27/2018 Date: Birthdate: 1955 OPERATIVE REPORT DATE OF SURGERY: 11/27/2018 SURGEON: Krishna Sofia MD PREOPERATIVE DIAGNOSIS: Right shoulder massive rotator cuff tear. POSTOPERATIVE DIAGNOSIS: Right shoulder massive rotator cuff tear. PROCEDURES PERFORMED: 1. Manipulation under anesthesia 2. Right shoulder arthroscopy with lysis of adhesions and biceps tenotomy and capsular release. 3. Open rotator cuff repair of the supra and infraspinatus tendons. ANESTHESIA: General. FLUIDS: As per anesthesia records. ESTIMATED BLOOD LOSS: Minimal. DRAINS: None. SPECIMENS: None. COMPLICATIONS: None. IMPLANTS: Arthrex 4.75 SwiveLock anchors x 4 EXPLANTS: None. OPERATIVE INDICATION: The patient is a 63-year-old female, who sustained a right shoulder fracture dislocation and traumatic rupture of the rotator cuff tendons. She has failed conservative management and was deemed an appropriate candidate to proceed for a rotator cuff repair of the right shoulder. DESCRIPTION OF THE PROCEDURE: The patient was greeted in the preoperative holding area by me. The patient's right upper extremity was marked with my initials. Informed consent was obtained and all questions were answered. Prophylactic antibiotics were administrated. The patient was taken back to the operating theater, placed in beach chair position on the operating table. Anesthesia was induced without complication. The right upper extremity was prepped and draped in normal sterile fashion. A time-out was performed to confirm the correct patient, correct procedure, correct laterality. We began by marking our standard arthroscopy portals. We began by establishing the standard posterior viewing portal, 1 cm skin incision was made and the arthroscope was introduced into the shoulder. This was followed by establishment of a standard anterior working portal just lateral to the coracoid ptosis, 1 cm skin incision was made and a 5.0 mm orange cannula was introduced into the shoulder. We began by performing a diagnostic arthroscopy of the shoulder. The biceps tendon was noted to be medially dislocated and severely inflamed. Decision was made to proceed with a biceps tenotomy. We also performed a rotator interval release and capsular release. We then inspected the subscapularis and a partial thickness tear of the subscapularis was noted, but this was less than 50% of the subscap and the decision was made not to perform repair of this partial-thickness subscap tear. Attention was then turned to the shoulder joint and there was some evidence of degenerative changes of the articular cartilage, particularly on the humeral side. Attention was then turned to the articular surface of the rotator cuff tendon and a massive retracted cuff tear at the level of the glenoid was noted of the supra and infraspinatus. Attention was then turned into the subacromial space. A standard lateral portal was created under vision, a 1 cm skin incision was made 2 finger breadth lateral to the lateral border of the acromion. We performed extensive bursectomy and debridement of the subacromial space using a shaver and an arthrocace, and again massive full-thickness retracted tear of the supra and infraspinatus was noted. We began by performing extensive releases to try to mobilize the cuff tendon. However, after performing extensive release superiorly and inferiorly of the cuff, I was not able to fully mobilize the supra and infraspinatus tendons to the articular margin to achieve an appropriate repair and decision was made to proceed with a mini open approach. A 5 cm skin incision was made extending from the anterior border of the acromion downwards through the previously created lateral border. This was followed by the deltoid splitting. We then used the Jonas elevators and freers to perform an extensive release of the supra and infraspinatus tendon and we were able to mobilize the tendons to the articular margins and the decision was made to proceed with a double row rotator cuff repair. Two swivel lock Arthrex anchors 4.5 mm size were inserted as a medial row and the labral tape from each 1 of them was passed through the cuff tendons. One tape was passed anterior and 1 tape was passed posterior. We also inserted 2 traction stitches to help mobilize the cuff tendons, 1 anterior and 1 posteriorly. Then, 2 Arthrex 4.75 mm SwiveLock anchors were inserted laterally and the sutures from the medial anchors were passed and docked down into the bone using the lateral row anchors. We were satisfied with our repair. We then performed a layered closure of the remaining open incision for the cuff repair. This was achieved using 3-0 Vicryl for the deltoid approximation, followed by 3-0 Vicryl and 3-0 Novafil for the skin. We then closed the arthroscopy portals using 3-0 Novafil sutures. The wound was then cleansed and sterile dry dressing was applied with Xeroform, 4 x 4, ABD, and foam tape. The patient was then placed in a sling with a pillow and was subsequently awakened from anesthesia without complication, transferred to PACU in a stable condition and then subsequently, discharged home in stable condition. PLAN: The patient will be nonweightbearing on the right upper extremity and will wear the sling all the time for the first 4 weeks and she will also be prescribed Percocet for pain management and she will return for followup in 2 weeks. Electronically Signed by: Krishna Sofia MD 12/09/2018 08:23 P Krishna Sofia MD Date Dict: 11/28/2018/07:32 P/Krishna Sofia MD Date Trans: 11/29/2018 06:23 A/elmao [id number] cc: Lala Watson M.D. [address] [place] [address] Normal [facility] POC GLUCOSE LABon 11-27-2018 Glucose [Mass/Vol] 90 mg/dL Normal 70-100 [facility] Comment on above: Performed By: #### 0 0071 #### [facility] [address] [facility] *MRSA/MSSA DNA NASALon 11-06 *MRSA/MSSA DNA NASAL Clinical Report: (D ) Specimen: NASAL SWAB Collected: 11/06/2018 13:53 Status: Final Last Updated: 11/06/2018 18:38 MSSA DNA (Final) Negative MRSA DNA (Final) Negative Normal [facility] Comment on above: Performed By: #### 0 0071 #### [facility] [address] [facility] APTTon 11-06-2018 aPTT Coag (Bld) [Time] 33.9 s Normal 25.0-35.0 [facility] Comment on above: Result Comment: ALL RESULTS MUST BE INTERPRETED WITH RESPECT TO BLOOD DRAWING ARTIFACT OR DILUTION ERROR OF ANTICOAGULANT AT THE TIME OF SAMPLING. THE APTT SHOULD NOT BE USED TO MONITOR UNFRACTIONATED HEPARIN THERAPY, THIS LABORATORY NO LONGER HAS AN ESTABLISHED THERAPEUTIC RANGE BASED ON THE APTT. IT IS RECOMMENDED THAT THE [facility] - HEPARIN ASSAY (ANTI-XA ACTIVITY) BE USED FOR THIS PURPOSE. Performed By: #### 0 0071 #### [facility] [address] [place] [address], [facility] BASIC METABOLIC PANELon 10-23 Calcium [Mass/Vol] 9.4 mg/dL Normal 8.6-10.3 [facility] Comment on above: Performed By: #### 0 0071 #### [facility] [address] [place] [address], [facility] Chloride [Moles/Vol] 102 mmol/L Normal 98-107 [facility] Comment on above: Performed By: #### 0 0071 #### [facility] [address] [place] [address], [place] CO2 [Moles/Vol] 27 mmol/L Normal 21-31 [facility] Comment on above: Performed By: #### 0 0071 #### [facility] [address] [place] [address], [place] Creatinine [Mass/Vol] 0.86 mg/dL Normal 0.60-1.20 [facility] Comment on above: Performed By: #### 0 0071 #### [facility] [address] [place] [address], [place] GFR/1.73 sq M predicted among blacks MDRD (S/P/Bld) [Vol rate/Area] mL/min/{1.73_m2} Normal >60 [facility] Comment on above: Performed By: #### 0 0071 #### [facility] [address] [place] [address], [place] GFR/1.73 sq M predicted among non-blacks MDRD (S/P/Bld) [Vol rate/Area] mL/min/{1.73_m2} Normal >60 [facility] Comment on above: Performed By: #### 0 0071 #### [facility] [address] [place] [address], [place] Glucose [Mass/Vol] 91 mg/dL Normal 70-100 [facility] Comment on above: Performed By: #### 0 0071 #### [facility] [address] Potassium [Moles/Vol] 4.1 mmol/L Normal 3.5-5.1 [facility] Comment on above: Performed By: #### 0 0071 #### [facility] [address] Sodium [Moles/Vol] 134 mmol/L Low 136-145 [facility] Comment on above: Performed By: #### 0 0071 #### [facility] [address] Urea nitrogen [Mass/Vol] 17 mg/dL Normal 7-25 [facility] Comment on above: Performed By: #### 0 0071 #### [facility] [address] CBC W/DIFFon 11-06-2018 ABS BASOPHILS 0.1 10*3/uL Normal 0.0-0.2 [facility] Comment on above: Performed By: #### 0 0071 #### [facility] [address] ABS IMM GRANS 0.0 10*3/uL Normal 0.0-0.2 [facility] Comment on above: Performed By: #### 0 0071 #### [facility] [address] ABS NEUTROPHILS 4.6 10*3/uL Normal 1.6-7.6 [facility] Comment on above: Performed By: #### 0 0071 #### [facility] [address] Basophils/100 WBC (Bld) 0.7 % Normal 0.0-1.0 [facility] Comment on above: Performed By: #### 0 0071 #### [facility] [address] Eosinophils (Bld) [#/Vol] 0.1 10*3/uL Normal 0.0-0.5 [facility] Comment on above: Performed By: #### 0 0071 #### [facility] [address] [place] [address], [facility] Eosinophils/100 WBC (Bld) 1.8 % Normal 0.0-6.0 [facility] Comment on above: Performed By: #### 0 0071 #### [facility] [address] Erythrocyte distribution width (RBC) [Ratio] 11.9 % Normal 11.5-15.0 [facility] Comment on above: Performed By: #### 0 0071 #### [facility] [address] [facility] [address] Hematocrit (Bld) [Volume fraction] 38.6 % Normal 36.0-45.0 [facility] Comment on above: Performed By: #### 0 0071 #### [facility] [address] [facility] [address] Hemoglobin (Bld) [Mass/Vol] 12.6 g/dL Normal 12.0-15.0 [facility] Comment on above: Performed By: #### 0 0071 #### [facility] [address] [facility] [place] [address], [facility] IMMATURE GRANS 0.1 % Normal 0.0-1.0 [facility] Comment on above: Performed By: #### 0 0071 #### [facility] [address] [facility] [place] [address], [facility] Lymphocytes (Bld) [#/Vol] 1.9 10*3/uL Normal 1.2-4.0 [facility] Comment on above: Performed By: #### 0 0071 #### [facility] [address] [facility] [place] [address], [facility] Lymphocytes/100 WBC (Bld) 26.3 % Normal 20.0-45.0 [facility] Comment on above: Performed By: #### 0 0071 #### [facility] [address] [facility] [place] [address], [facility] MCH (RBC) [Entitic mass] 30.8 pg Normal 27.0-33.0 [facility] Comment on above: Performed By: #### 0 0071 #### [facility] [address] [facility] [place] [address], [facility] MCHC (RBC) [Mass/Vol] 32.6 g/dL Normal 32.0-35.0 [facility] Comment on above: Performed By: #### 0 0071 #### [facility] [address] [facility] [place] [address], [facility] MCV (RBC) [Entitic vol] 94.4 fL Normal 82.0-98.0 [facility] Comment on above: Performed By: #### 0 0071 #### [facility] [address] [facility] [place] [address], [facility] Monocytes (Bld) [#/Vol] 0.4 10*3/uL Normal 0.1-1.0 [facility] Comment on above: Performed By: #### 0 0071 #### [facility] [address] [facility] [place] [address], [facility] MONOS 5.5 % Normal 5.0-12.0 [facility] Comment on above: Performed By: #### 0 0071 #### [facility] [address] [facility] [place] [address], [facility] Neutrophils/100 WBC (Bld) 65.6 % Normal 40.0-72.0 [facility] Comment on above: Performed By: #### 0 0071 #### [facility] [address] [place] [address], [facility] Nucleated RBC/100 WBC (Bld) [Ratio] 0 % Normal 0-0 [facility] Comment on above: Performed By: #### 0 0071 #### [facility] [address] [place] [address], [facility] PLAT CNT 327 10*3/uL Normal 150-[address] [facility] Comment on above: Performed By: #### 0 0071 #### [facility] [address] RBC (Bld) [#/Vol] 4.09 10*6/uL Normal 3.80-5.00 [facility] Comment on above: Performed By: #### 0 0071 #### [facility] [address] WBC (Bld) [#/Vol] 7.03 10*3/uL Normal 4.00-10.60 [facility] Comment on above: Performed By: #### 0 0071 #### [facility] [address] PROTHROMBIN TIMEon 9 INR Coag (PPP) [Relative time] 0.93 {INR} Normal 0.91-1.16 [facility] Comment on above: Result Comment: ACCC P RECOMMENDED INR FOR WARFARIN THERAPY ------- ------- CONDITION INR PROPHYLAXIS OF VENOUS THROMBOSIS 2-3 (HIGH-RISK SURGERY) TREATMENT OF VENOUS THROMBOSIS 2-3 TREATMENT OF PULMONARY EMBOLISM 2-3 PREVENTION OF SYSTEMIC EMBOLISM: 2-3 ACUTE MYOCARDIAL INFARCTION TISSUE HEART VALVES VALVULAR HEART DISEASE ATRIAL FIBRILLATION RECURRENT SYSTEMIC EMBOLISM MECHANICAL HEART VALVE 2.5-3.5 FROM: ORAL ANTICOAGULANTS. MECHANISM OF ACTION, CLINICAL EFFECTIVENESS, AND OPTIMAL THERAPEUTIC RANGE. CHEST 1995;108:231S-246S. Performed By: #### 0 0071 #### [facility] 3000 [facility]. [address] PT Coag (PPP) [Time] 12.5 s Normal 12.3-14.8 [facility] Comment on above: Result Comment: ALL RESULTS MUST BE INTERPRETED WITH RESPECT TO BLOOD DRAWING ARTIFACT OR DILUTION ERROR OF ANTICOAGULANT AT THE TIME OF SAMPLING. Performed By: #### 0 0071 #### [facility] [address] MRI SHOULDER WO CONTRAST RIG HTon 10-29-2018 MRI SHOULDER WO CONTRAST RIGHT [facility] Department of Radiology [address] [place] [address] ======== Patient Name: MARYAM SOLOMON : 1955 Sex: F Age: Race: White Pt. Location: Patient Status: D Ordered Date: 10/17/2018 3:15:00 PM Completed Date: 10/29/2018 04:20 PM Requesting Provider: KRISHNA SOFIA Attending Provider: KRISHNA SOFIA Report Copy To: LALA WATSON Signs & Symptoms: M75.121 Complete rotatr-cuff tear/ruptr of r shoulder, not trauma I10 History: Marie no pc per todd @ [employer] cpt code 54407 call ref# [id number] *mla Comments: , , , Ordering Provider - KRISHNA SOFIA MD , Exam: MRI SHOULDER WO CONTRAST RIGHT ======== MRI SHOULDER WO CONTRAST RIGHT 10/29/2018 4:20 PM EST SIGNS AND SYMPTOMS: M75.121 Complete rotatr-cuff tear/ruptr of r shoulder, not trauma I10 TECHNOLOGIST COMMENTS: hx fall with shoulder dislocation 07/2018 limited ROM with radiating pain down right arm QUESTION FOR THE RADIOLOGIST: , , , Ordering Provider - KRISHNA SOFIA MD , PROTOCOL: Images were obtained in the following sequences: 3-plane localizer, axial T2 GRE, axial PD fat-sat, coronal PD fat-sat, sagittal T1, and sagittal PD fat-sat. COMPARISON: None. FINDINGS: Skeleton: Mild AC joint arthritis. Marked cephalic migration of humeral head. Type II acromion with subacromial space is diminished and 2-3 mm. Nodule along the humeral tuberosity, likely relating to long-standing rotator cuff pathology Muscles: Mild supraspinatus and moderate infraspinatus atrophy. Mild to moderate fatty change in the upper subscapularis. Rotator cuff tendons: Full-thickness supraspinatus tear with 3 cm retraction. Full-thickness infraspinatus tear with similar retraction. Rupture of the subscapularis except for a few inferior fibers. Glenoid labrum: Degenerative change. Long head biceps: Medially dislocated from the bicipital groove, related to the subscapularis tear. The tendon itself also shows severe bicipital tendinopathy. Joint cavity: Effusion with mild adhesive capsulitis. IMPRESSION: 1. Massive rotator cuff tear involving full-thickness supraspinatus, infraspinatus and subscapularis tears. 2. Severe bicipital tendinitis with medial dislocation from the bicipital groove. 3. Marked cephalic migration of humeral head with 2-3 mm subacromial space and long-standing impingement. Adhesive capsulitis as well as posterior capsular laxity. Joint effusion and bursitis. Electronically signed by:Los Odonnell. Transcribed by: [id number], User Resident: Electronically Signed by: LOS ODONNELL @ 10/30/2018 12:47 PM Normal [facility] Comment on above: Order Comment: No: D o not add to previous draw SHOULDER RIGHTon 09-04-2018 SHOULDER RIGHT [facility] Department of Radiology [address] [place] [id number] ======== Patient Name: MARYAM SOLOMON : 1955 Sex: F Age: Race: White Pt. Location: Patient Status: O Ordered Date: 09/04/2018 1:15:00 PM Completed Date: 09/04/2018 01:29 PM Requesting Provider: KRISHNA SOFIA Attending Provider: KRISHNA SOFIA Report Copy To: LALA WATSON Signs & Symptoms: S42.91XD Fx r shoulder girdle, part unsp, subs for fx w routn heal I10 History: [place] Comments: , Views (X-RAY, SHOULDER): AP, Grashey, Y-Lateral, [place] , Views (X-RAY, SHOULDER): AP, Grashey, Y-Lateral, [place] , , , Ordering Provider - KRISHNA SOFIA MD , Exam: SHOULDER RIGHT ======== SHOULDER RIGHT 09/04/2018 1:29 PM EST SIGNS AND SYMPTOMS: S42.91XD Fx r shoulder girdle, part unsp, subs for fx w routn heal I10 TECHNOLOGIST COMMENTS: right shoulder pain hx: shoulder dislocates patient unable to do the [place] view at this time QUESTION FOR THE RADIOLOGIST: , Views (X-RAY, SHOULDER): AP, Grashey, Y-Lateral, [place] , Views (X-RAY, SHOULDER): AP, Grashey, Y-Lateral, [place] , , , Ordering Provider - KRISHNA SOFIA MD , PROTOCOL: AP, Axillary and Scapular Y views were obtained. COMPARISON: None FINDINGS: Soft tissues: Normal Bones: Fracture around the greater tubercle of the humerus appears comminuted. May represent a prominent Hill-Sachs fracture correlation with sent dislocation recommended. Joints: Degenerative changes changes acromioclavicular joint. IMPRESSION: 1. Fracture around the greater tubercle of the humerus appears comminuted. May represent a prominent Hill-Sachs fracture correlation with sent dislocation recommended. 2. Degenerative changes AC joint Electronically signed by:Brendan Morin. Transcribed by: [email or web address], User Resident: Electronically Signed by: BRENDAN MORIN @ 09/04/2018 01:55 PM Normal [facility] Comment on above: Order Comment: No: D o not add to previous draw Operative Reporton 8 Operative Report MR#: [id number] I [facility] Pt. Name: Maryam Solomon Room #: [id number] Discharge 08/24/2018 Date: Birthdate: 1955 OPERATIVE REPORT DATE OF SURGERY: 08/23/2018 SURGEON: Krishna Sofia MD PREOPERATIVE DIAGNOSIS: Right shoulder irreducible fracture-dislocation. POSTOPERATIVE DIAGNOSIS: Right shoulder irreducible fracture-dislocation. PROCEDURE PERFORMED: Closed reduction of irreducible fracture-dislocation of the right shoulder. ANESTHESIA: General. FLUIDS: As per Anesthesia records. ESTIMATED BLOOD LOSS: None. DRAINS: None. SPECIMENS: None. COMPLICATIONS: None. IMPLANTS: None. EXPLANTS: None. OPERATIVE INDICATIONS: The patient is a 62-year-old female, who presented to our emergency room with an irreducible dislocation of the right shoulder after a failed attempt of closed reduction at an outside hospital. Upon presenting to our hospital, a trial of closed reduction was tried in the emergency room, but this trial failed as well. For that reason, it was deemed an appropriate option to proceed to the operating room for closed reduction of the right shoulder fracture-dislocation with possible open reduction as well as possibility internal fixation of a greater tuberosity fracture. DESCRIPTION OF THE PROCEDURE: The patient was greeted in the preoperative holding area by me. The patient's right upper extremity was marked with my initials. Informed consent was obtained and all questions were answered. Prophylactic antibiotics were administered. The patient was taken to operating theater, placed in supine position on the operating table. Anesthesia was induced without complications. A time-out was performed confirming correct patient, procedure, and laterality. I then proceeded with the closed reduction technique. This was performed by applying traction to the right upper extremity and then by slowly externally rotating the shoulder. With the elbow at 90 degrees flexion, we were able to relocate the shoulder back into the socket. Successful closed reduction was then confirmed using an anteroposterior and axillary view of the shoulder intraoperatively. The patient was then placed in an arm sling with an abdominal immobilizer. The patient was then awakened from anesthesia without any complications and was subsequently transferred to PACU in a stable condition and then subsequently transferred to the floor. PLAN: The patient will remain in the shoulder sling for 2 to 3 weeks and will be allowed only to do range of motion exercises for the elbow as well as supination and pronation of the forearm and flexion and extension of the wrist as well as range of motion of the fingers, and she should follow up in the clinic in 2 weeks with followup x-rays. Electronically Signed by: Krishna Sofia MD 09/01/2018 02:01 P Krishna Sofia MD Date Dict: 08/25/2018/08:23 A/Krishna Sofia MD Date Trans: 08/25/2018 09:10 A/macho [id number] cc: Lala Watson M.D. [address] [id number] Adilene Liu M.D. E R Physican...do Not Send [address] [facility] [address] Normal [facility] BASIC METABOLIC PANELon 11-0 Calcium [Mass/Vol] 8.9 mg/dL Normal 8.6-10.3 [facility] Comment on above: Order Comment: No: D o not add to previous draw Performed By: #### 0 0071 #### [facility] [address] [place] [address], [place] Chloride [Moles/Vol] 102 mmol/L Normal 98-107 [facility] Comment on above: Order Comment: No: D o not add to previous draw Performed By: #### 0 0071 #### [facility] [address] [place] [address], [place] CO2 [Moles/Vol] 24 mmol/L Normal 21-31 [facility] Comment on above: Order Comment: No: D o not add to previous draw Performed By: #### 0 0071 #### [facility] [address] [place] [address], [place] Creatinine [Mass/Vol] 0.84 mg/dL Normal 0.60-1.20 [facility] Comment on above: Order Comment: No: D o not add to previous draw Performed By: #### 0 0071 #### [facility] [address] [place] [address], [place] GFR/1.73 sq M predicted among blacks MDRD (S/P/Bld) [Vol rate/Area] mL/min/{1.73_m2} Normal >60 [facility] Comment on above: Order Comment: No: D o not add to previous draw Performed By: #### 0 0071 #### [facility] [address] [place] [address], [place] GFR/1.73 sq M predicted among non-blacks MDRD (S/P/Bld) [Vol rate/Area] mL/min/{1.73_m2} Normal >60 [facility] Comment on above: Order Comment: No: D o not add to previous draw Performed By: #### 0 0071 #### [facility] [address] [place] [address], [facility] Glucose [Mass/Vol] 182 mg/dL High 70-100 [facility] Comment on above: Order Comment: No: D o not add to previous draw Performed By: #### 0 0071 #### [facility] [address] [place] [address], [facility] Potassium [Moles/Vol] 4.1 mmol/L Normal 3.5-5.1 [facility] Comment on above: Order Comment: No: D o not add to previous draw Performed By: #### 0 0071 #### [facility] [address] [place] [address], [facility] Sodium [Moles/Vol] 135 mmol/L Low 136-145 [facility] Comment on above: Order Comment: No: D o not add to previous draw Performed By: #### 0 0071 #### [facility] [address] [place] [id number], [facility] Urea nitrogen [Mass/Vol] 12 mg/dL Normal 7-25 [facility] Comment on above: Order Comment: No: D o not add to previous draw Performed By: #### 0 0071 #### [facility] [address] [place] [address], [facility] CBC COMPLETE BLOOD COUNTon 10-23-2017 Erythrocyte distribution width (RBC) [Ratio] 12.3 % Normal 11.5-15.0 [facility] Comment on above: Order Comment: No: D o not add to previous draw Performed By: #### 5 0608 #### [facility] [address] [place] [address], [facility] Hematocrit (Bld) [Volume fraction] 34.9 % Low 36.0-45.0 [facility] Comment on above: Order Comment: No: D o not add to previous draw Performed By: #### 5 0608 #### [facility] [address] [place] [address], [facility] Hemoglobin (Bld) [Mass/Vol] 11.7 g/dL Low 12.0-15.0 [facility] Comment on above: Order Comment: No: D o not add to previous draw Performed By: #### 5 0608 #### [facility] [address] [place] [address], [facility] MCH (RBC) [Entitic mass] 31.7 pg Normal 27.0-33.0 [facility] Comment on above: Order Comment: No: D o not add to previous draw Performed By: #### 5 0608 #### [facility] [address] [place] [address], [facility] MCHC (RBC) [Mass/Vol] 33.5 g/dL Normal 32.0-35.0 [facility] Comment on above: Order Comment: No: D o not add to previous draw Performed By: #### 5 0608 #### [facility] [address] [facility] [place] [address], [facility] MCV (RBC) [Entitic vol] 94.6 fL Normal 82.0-98.0 [facility] Comment on above: Order Comment: No: D o not add to previous draw Performed By: #### 5 0608 #### [facility] [address] [place] [address], [facility] Nucleated RBC/100 WBC (Bld) [Ratio] 0 % Normal 0-0 [facility] Comment on above: Order Comment: No: D o not add to previous draw Performed By: #### 5 0608 #### [facility] [address] [place] [id number], [facility] PLAT CNT 322 10*3/uL Normal 150-[address] [facility] Comment on above: Order Comment: No: D o not add to previous draw Performed By: #### 5 0608 #### [facility] [address] [place] [address], [facility] RBC (Bld) [#/Vol] 3.69 10*6/uL Low 3.80-5.00 [facility] Comment on above: Order Comment: No: D o not add to previous draw Performed By: #### 5 0608 #### [facility] [address] [place] [address], [facility] WBC (Bld) [#/Vol] 16.41 10*3/uL High 4.00-10.60 [facility] Comment on above: Order Comment: No: D o not add to previous draw Performed By: #### 5 0608 #### [facility] [address] [facility] [place] [address], [facility] CT UPPER EXTREMITY WO CONTRA ST RIGHTon 08-23-2018 CT UPPER EXTREMITY WO CONTRAST RIGHT [facility] Department of Radiology [address] [place] [id number] ======== Patient Name: MARYAM SOLOMON : 1955 Sex: F Age: Race: White Pt. Location: [id number] Patient Status: I Ordered Date: 08/23/2018 8:45:00 AM Completed Date: 08/23/2018 12:57 PM Requesting Provider: IKE MORLEY Attending Provider: KRISHNA SOFIA Report Copy To: Signs & Symptoms: Fracture History: Patient history not available Comments: R/O Fractures, Right shoulder CT scan to evaluate fx pattern Exam: CT UPPER EXTREMITY WO CONTRAST RIGHT ======== CT UPPER EXTREMITY WO CONTRAST RIGHT 08/23/2018 12:57 PM EDT SIGNS AND SYMPTOMS: Fracture TECHNOLOGIST COMMENTS: pre op evaluatwe for fractures QUESTION FOR THE RADIOLOGIST: R/O Fractures, Right shoulder CT scan to evaluate fx pattern PROTOCOL: Axial CT images of the extremity were obtained without IV contrast. TECHNIQUE: Multidetector CT axial slices of the right shoulder without IV contrast. Multiplanar reformats were performed and viewed on a separate workstation and reviewed to further define anatomy and possible pathology. COMPARISON: None. FINDINGS: Skeleton: Anterior shoulder dislocation with Hill-Sachs fracture fragment and retraction of a fragment of the humeral tuberosity approximately 15 mm in size. There is no significant bony Bankart component Muscles: Local edema. Tendons: Possible rotator cuff tear. Joint cavity: Local swelling and edema, possible rupture with fluid extravasation into the adjacent deltoid and cuff musculature. IMPRESSION: 1. Anterior shoulder dislocation 2. Hill-Sachs fracture with tuberosity fragment of about 15 mm in size retracted 3 cm from the donor site 3. No glenoid fracture Electronically signed by:Los Odonnell. Transcribed by: [email or web address], User Resident: Electronically Signed by: LOS ODONNELL @ 08/23/2018 01:20 PM Normal [facility] Comment on above: Order Comment: R/O F ractures, Right shoulder CT scan to evaluate fx pattern Consultationon 08-23-2018 Consultation MR#: [id number] [facility] Pt. Name: Maryam Solomon Date of Service: 08/23/2018 Room #: 4CD [id number] Birthdate: 1955 Referring Physician: CONSULTATION HISTORY OF PRESENT ILLNESS: The patient is a 62-year-old female with past medical history of hypertension, as well as obesity. Basically came to the hospital after incidence of fall that she sustained and actually confirmed right shoulder dislocation. The patient underwent closed reduction, but seems the patient requiring open procedure to fix her shoulder due to instability of the shoulder. During interview, the patient beside her pain denies any chest pain or shortness of breath. The patient is pretty alert, oriented, and no focal neuro deficits. PAST MEDICAL HISTORY: Significant mostly for hypertension as I mentioned above and obesity. Also there is a component of depression. MEDICATIONS: The patient currently takes Aleve as well as Ambien 10 at bedtime and Flexeril 10 mg at bedtime. Lisinopril in the evening, Paxil also daily, and Protonix 40 mg daily. The patient denies having hyperlipidemia issues although in her meds, I see also Zocor 20 mg daily. ALLERGIES: No known drug allergies. SOCIAL HISTORY: No tobacco, alcohol, or drug use. PAST SURGICAL HISTORY: Recent closed reduction to her right shoulder. FAMILY HISTORY: Noncontributory. REVIEW OF SYSTEMS: All her 10 review of systems are negative, except her right shoulder pain. PHYSICAL EXAMINATION: HEENT: Eyes; extraocular muscles are intact. NECK: Supple. No JVD. No lymphadenopathy. LUNGS: clear to auscultation. HEART: S1 and S2. ABDOMEN: Soft. Positive bowel sounds. EXTREMITIES: Right shoulder in a sling. NEUROLOGICAL: The patient is alert, awake, and oriented x3. No focal neurological deficits. SKIN: Intact. PSYCHIATRIC: The patient denies being suicidal. LABORATORY DATA: The patient's sodium is 135, potassium 4.1, chloride 102, CO2 24, BUN 12, creatinine 0.84, blood sugar 182. INR 0.97. WBC 16.41, hemoglobin 11.7, hematocrit 34.9, platelets of 322. X-ray of the shoulder showed anterior shoulder dislocation with posterior bony fragment likely from Hill-Sachs donor site rather than bony Bankart. ASSESSMENT AND PLAN: 1. Right shoulder dislocation. The patient failed closed reduction and she is requiring open procedure. As far as her functional capacity and mets, the patient has more than 10 mets and her functional capacity pretty good based on that. I think that she does outside or at home without any limitation. Based on that, her probable risk for any events around 0.4 to 0.5% for any cardiac or non-fatal NC and I feel very comfortable to just proceed with the EKG and no further cardiac workup. 2. Leukocytosis. Most likely related to her recent injury and body reaction and I do not see any evidence of infection and the patient is afebrile. Electronically Signed by: Perry Mchugh MD 09/03/2018 06:09 P Perry Mchugh MD Date Dict: 08/23/2018/09:47 Jaquan/Perry Mchugh MD Date Trans: 08/23/2018 09:21 P/mmo [id number] cc: Lala Watson M.D. [facility] [address] [facility] [place], [facility] [address] Adilene Liu M.D. E R Physican...do Not Send [address] [facility] [place] [address] Normal [facility] PORTABLE SHOULDER RIGHT 2 VW Son 08-23-2018 PORTABLE SHOULDER RIGHT 2 VWS [facility] Department of Radiology [address] [place] [address] ======== Patient Name: MARYAM SOLOMON : 1955 Sex: F Age: Race: White Pt. Location: [facility] Patient Status: I Ordered Date: 08/23/2018 1:40:00 AM Completed Date: 08/23/2018 07:48 AM Requesting Provider: OCTAVIO SHARMA Attending Provider: OCTAVIO SHARMA Report Copy To: Signs & Symptoms: Post Reduction History: Patient history not available Comments: R/O Dislocation, 3 views; Grashey, scapular Y, and axillary (or velpeau if cannot obtain satisfactory axillary) Exam: PORTABLE SHOULDER RIGHT 2 VWS ======== PORTABLE SHOULDER RIGHT 2 VWS 08/23/2018 7:48 AM EDT SIGNS AND SYMPTOMS: Post Reduction TECHNOLOGIST COMMENTS: Patient has right shoulder pain and limited range of motion from a fall yesterday. Best images possible. QUESTION FOR THE RADIOLOGIST: R/O Dislocation, 3 views; Grashey, scapular Y, and axillary (or velpeau if cannot obtain satisfactory axillary) PROTOCOL: AP and scapular Y. COMPARISON: None FINDINGS: Soft tissues: Local swelling Bones: Anterior dislocation with bony fragment probably arising from Hill-Sachs donor site, less likely bony Bankart, possibly combination of both Joints: Anterior shoulder dislocation IMPRESSION: Anterior shoulder dislocation with posterior bony fragment likely from the Hill-Sachs donor site rather than bony Bankart Electronically signed by:Los Odonnell. Transcribed by: [email or web address], User Resident: Electronically Signed by: LOS ODONNELL @ 08/23/2018 09:02 AM Normal [facility] Comment on above: Order Comment: R/O D islocation, 3 views; Grashey, scapular Y, and axillary (or velpeau if cannot obtain satisfactory axillary) PROTHROMBIN TIMEon 8 INR Coag (PPP) [Relative time] 0.97 {INR} Normal 0.91-1.16 [facility] Comment on above: Order Comment: No: D o not add to previous draw Result Comment: ACCC P RECOMMENDED INR FOR WARFARIN THERAPY ------- ------- CONDITION INR PROPHYLAXIS OF VENOUS THROMBOSIS 2-3 (HIGH-RISK SURGERY) TREATMENT OF VENOUS THROMBOSIS 2-3 TREATMENT OF PULMONARY EMBOLISM 2-3 PREVENTION OF SYSTEMIC EMBOLISM: 2-3 ACUTE MYOCARDIAL INFARCTION TISSUE HEART VALVES VALVULAR HEART DISEASE ATRIAL FIBRILLATION RECURRENT SYSTEMIC EMBOLISM MECHANICAL HEART VALVE 2.5-3.5 FROM: ORAL ANTICOAGULANTS. MECHANISM OF ACTION, CLINICAL EFFECTIVENESS, AND OPTIMAL THERAPEUTIC RANGE. CHEST 1995;108:231S-246S. Performed By: #### 5 [id number] #### [address] PT Coag (PPP) [Time] 12.9 s Normal 12.3-14.8 [facility] Comment on above: Order Comment: No: D o not add to previous draw Result Comment: ALL RESULTS MUST BE INTERPRETED WITH RESPECT TO BLOOD DRAWING ARTIFACT OR DILUTION ERROR OF ANTICOAGULANT AT THE TIME OF SAMPLING. Performed By: #### 5 [id number] #### [address] SHOULDER RIGHTon 08-23-2018 SHOULDER RIGHT [facility] Department of Radiology [address] [place] [id number] ======== Patient Name: MARYAM SOLOMON : 1955 Sex: F Age: Race: White Pt. Location: [address] [place] [address] Patient Status: I Ordered Date: 08/23/2018 2:10:00 PM Completed Date: 08/23/2018 04:30 PM Requesting Provider: KRISHNA SOFIA Attending Provider: KRISHNA SOFIA Report Copy To: Signs & Symptoms: RIGHT SHOULDER CLOSED VS. OPEN REDUCTION History: RIGHT SHOULDER CLOSED VS. OPEN REDUCTION Comments: RIGHT SHOULDER CLOSED VS. OPEN REDUCTION Exam: SHOULDER RIGHT ======== SHOULDER RIGHT 08/23/2018 4:30 PM EDT SIGNS AND SYMPTOMS: RIGHT SHOULDER CLOSED VS. OPEN REDUCTION TECHNOLOGIST COMMENTS: right shoulder closed reduction Dr. Sofia 9 seconds fluoro time QUESTION FOR THE RADIOLOGIST: RIGHT SHOULDER CLOSED VS. OPEN REDUCTION PROTOCOL: AP,Grashey and Axillary views were obtained. COMPARISON: None FINDINGS: Dictation for documentation purposes only. IMPRESSION: Dictation for documentation purposes only. Approved by:Damián Dacosta on 08/23/2018 5:59 PM EDT. I, Gayle Rowe, have reviewed the images and report and concur with these findings. Electronically signed by:Gayle Rowe. Transcribed by: [email or web address], User Resident: DAMIÁN DACOSTA Electronically Signed by: GAYLE ROWE @ 08/24/2018 05:40 PM I personally read this/these film(s) with this resident Normal [facility] Comment on above: Order Comment: RIGHT SHOULDER CLOSED VS. OPEN REDUCTION TYPE AND SCREENon 08-23-2018 ABO INTERPRETATION O Normal [facility] Comment on above: Performed By: #### 6 [id number] #### [facility] [address] [place] [address], [facility] INTERPRETATION Positive Normal [facility] Comment on above: Performed By: #### 6 [id number] #### [facility] [address] [place] [address], [place] Vital Signs Date Time Vital Sign Value Performing Clinician Mari hewitt 09-05-2023 15:01-0500 Blood Pressure Location Eron MULLER [facility] [place] 09-05-2023 15:01-0500 Diastolic blood pressure 94 mm[Hg] Eron MULLER [facility] 09-05-2023 15:01-0500 Heart rate 70 /min Eron MULLER [facility] 09-05-2023 15:01-0500 Respiratory rate 16 /min Eron MULLER [facility] 09-05-2023 15:0500 Systolic blood pressure 152 mm[Hg] Eron MULLER [facility] Encounters Encounter Date Encounter Type Care Provider Facility Start: 10-10-2023 End: 10-11-2023 ambulatory Eron R BETZAIDAL Facility:[facility] Start: 10-10-2023 End: 10-10-2023 Patient encounter procedure Eron Huffman NILL [facility] Nill/Said [place] Start: 09-27-2023 End: 09-28-2023 ambulatory Eron R BETZAIDAL Facility:CD:[id number] Start: 09-05-2023 End: 09-06-2023 ambulatory Eron R BETZAIDAL Facility: [facility] Start: 09-05-2023 End: 09-05-2023 Patient encounter procedure Eron Huffman NILL [facility] Nill[facility] Start: 11-22-2022 ambulatory Eron Huffman YOHANA Facility : [facility] Start: 09-21-2022 End: 09-22-[address] LALA WATSON Facility:[facility] Start: 08-22-2022 End: 08-23-2022 ambulatory JANUSZ W SE[facility] Start: 08-22-2022 Encounter for gynecological examination (general) (routine) [facility] Start: 08-22-2022 End: 08-22-2022 Patient encounter procedure Lala Watson MD Work Phone: [facility] Start: 08-22-2022 End: 08-22-2022 Subsequent hospital visit by physician Lala Watson MD Work Phone: [facility] Comment on above: Women's annual routi ne gynecological examination Start: 05-02-2022 End: 05-03-[address] LALA WATSON Facility:[facility] Start: [address] LALA WATSON Facility :[facility] Start: 04-20-2020 End: 04-20-2020 Subsequent hospital visit by physician Lala Watson [facility] Comment on above: Encounter for well farida lazaro exam with routine gynecological exam Start: 08-02-2019 End: 08-03-2019 Evaluation and management of inpatient OSAMA ELATTAR Facility:[facility] Start: 11-27-2018 End: 11-28-2018 Patient encounter procedure OSAMA ELATTAR Facility:[facility] Start: 08-23-2018 End: 08-24-2018 Evaluation and management of inpatient ADILENE LIU Facility:[facility] Procedures Date Procedure Procedure Detail Performing Clinician Start: 09-27-2023 Colonoscopy Eron JESUS LL Start: 08-03-2019 INTRODUCTION OF INFL UENZA VACCINE INTO MUSCLE, PERC APPROACH OSAMA ELATTAR Start: 08-02-2019 REPLACE OF R SHOULDE R JT WITH REV BL \T\ SOCKT, OPEN APPROACH OSAMA ELATTAR Start: 11-27-2018 ANESTH SURGERY OF SHOULDER AYANNA RED Start: 11-27-2018 ARTHROSCOPY BICEPS TENODESIS OSAMA ELATTAR Start: 11-27-2018 REPAIR ROTATOR CUFF ACUTE OSAMA ELATTAR Start: 08-23-2018 Antibody screen OSAMA E LATTAR Comment on above: Performed By: #### 6 [id number] #### [address] Start: 08-23-2018 REPOSITION RIGHT MIMA ULDER JOINT, EXTERNAL APPROACH OSAMA ELATTAR Start: 10-23-1976 Appendectomy Eron JESUS LL Comment on above: [facility] Arthroplasty of righ t shoulder Eron NILL Colonoscopy Eron NILL Colonoscopy Eron NILL Comment on above: x 2 ([facility]) Repair of musculoten dinous cuff of shoulder Eron NILL Tonsillectomy Eron NILL Vaginal hysterectomy Eron NILL Plan of Treatment Date Care Activity Detail Author Start: 09-21-2023 End: 09-21-2023 Patient encounter procedure 09/21/2023 Office Visit Obstetrics and Gynecology Janusz Flores MD [address] [place] [address] [facility] Start: 08-24-2023 End: 08-24-2023 Patient encounter procedure 08/24/2023 Office Visit Obstetrics and Gynecology Janusz Flores MD [address] [place], [place] [id number] [facility] Start: 08-25-2022 Screening for malign ant neoplasm of breast Breast cancer screen [facility] Start: 05-23-2022 Influenza vaccination Flu vaccine (# 1) [facility] Start: 05-18-2022 COVID-19 Vaccine (5 - Booster for Pfizer series) COVID-19 Vaccine (5 - Booster for Pfizer series) [facility] Start: 03-08-2022 Pneumococcal 65+ yea rs Vaccine (2 - PPSV23 if available, else PCV20) Pneumococcal 65+ years Vaccine (2 - PPSV23 if available, else PCV20) [facility] Start: 06-23-2020 Influenza vaccination Flu vacc ine (Season Ended) [place], [place] Start: 05-17-2019 Screening for malign ant neoplasm of cervix Cervical cancer screen [place], [place] Start: 09-12-2018 Screening for malign ant neoplasm of breast Breast cancer screen [place], [place] Start: 2010 Screening for osteoporosis DEXA (modify frequency per FRAX score) [facility] Start: 2005 Screening for malign ant neoplasm of colon Colon cancer screen colonoscopy [place], [place] Start: 2005 Shingles Vaccine (1 of 2) Shingles Vaccine (1 of 2) [facility] Start: 2000 Screening for malign ant neoplasm of colon [facility] Start: 1995 Diabetes screen Diabetes screen [place], [place] Start: 1990 Diabetes screen Diabetes screen [facility] Start: 1974 DTaP/Tdap/Td vaccine (1 - Tdap) DTaP/Tdap/Td vaccine (1 - Tdap) [facility] Start: 1973 Hepatitis C screening Hepatitis C sc pippa [facility] Start: 1970 HIV screening HIV screen [facility] [place], [place] Start: 1967 Depression Screen Depression Screen [facility] Start: 1965 Lipid panel [facility] Start: 1955 Creatinine measurement Creatinine mo nitoring [place], [place] Start: 1955 Hepatitis C screening Hepatitis C [facility] [place], [place] Start: 1955 Potassium [place] End: 04-20-2020 Cytopathology procedure, preparation of smear, genital source [facility] Routine Encounter For Well Woman Exam With Routine Gynecological Exam 1 Occurrences starting 04/20/2020 until 04/20/2020 [place] Comment on above: 1 Occurrences starti ng 04/20/2020 until 04/20/2020 End: 08-22-2022 Cytopathology procedure, preparation of smear, genital source [facility] Lab Routine Women's annual routine gynecological examination 1 Occurrences starting 08/22/2022 until 08/22/2022 [facility] Work Phone: Comment on above: 1 Occurrences starti ng 08/22/2022 until 08/22/2022 Immunizations Immunization Date Immunization Notes Care Provider Fa jameson 07-23-2023 influenza virus vaccine, unspecified formulation Eron MULLER [facility] 09-21-2022 influenza virus vaccine, unspecified formulation Eron MULLER [facility] 09-21-2022 SARS-CoV-2 (COVID-19 ) [id number] Eron MULLER [facility] 03-23-2022 SARS-CoV-2 mRNA (yihylqyacrn-imji-ljfzt se) vaccine Eron MULLER [facility] 08-09-2021 SARS-CoV-2 (COVID-19 ) mRNA BNT-162b2 vax Eron HUSTONL [facility] [place] Comment on above: Result Comment: 2022: [id number] 01-12-2021 SARS-CoV-2 (COVID-19 ) mRNA BNT-162b2 vax Eron NILL [facility] [place] 12-21-2020 SARS-CoV-2 (COVID-19 ) mRNA BNT-162b2 vax Eron NILL [facility] [place] Payers Date Payer Category Payer Unknown [id number] 2019 Unknown BCBS [place] - [place] P PO xxxxxxxxxxxxxxx 2019-Present [address] [place] [address] xxxxxxxxxxxxxxx [id number] 2019 Unknown [id number] 1959 Self-pay [id number] 1959 Unknown [id number] 1959 Unknown [id number] 1955 Unknown [id number] 1955 Unknown [id number] 1955 Unknown [id number] 1955 Unknown [id number] 1955 Unknown [id number] 1955 Unknown [id number] 1955 Unknown [id number] 1955 Unknown [id number] 1955 Unknown [id number] 1955 Unknown [id number] 1955 Unknown [id number] Social History Date Type Detail Facility Start: 04-20-2020 End: 09-05-2023 Tobacco smoking status NHIS Never smoker [place], [place] Start: 04-20-2020 End: 08-22-2022 Alcohol intake Current drinker of alcohol (finding) [place], [place] Start: 1955 Sex Assigned At Not on file [place], [place] Exposure to SARS-CoV -2 (event) Unable to assess [place], [place] Start: 04-20-2020 Tobacco use and exposure Smokeless tobacco non-user [facility] Work Phone: Tobacco smoking status Never Gener [facility] [place] Sex Assigned At Female [facility] Functional Status Date Assessment Result Facility 09-05-2023 Functional Status N/A General Elise [facility] Clinical Note 09-05-2023 Note Date & Type Note Facility 09-05-2023 Note Chief Complaint consultation for positive Cologuard HPI Staff 67 year old female presents on consultation from Dr. Watson for positive Cologuard. Denies abdominal or rectal pain. No rectal bleeding or change in bowel habits. Denies nausea or vomiting. No unexplained weight loss. Last colonoscopy completed 07/2015 with IBS and internal hemorrhoids. No known family history of colon cancer. History of Present Illness 67 yo female with h/o htn, DMII, hyperlipidemia, peripheral neuropathy, GERD, referred for positive Cologuard; denies change in bms or blood in stools, no abd complaints; abd operations significant for appendectomy and vaginal hysterectomy; last colonoscopy 2014, with IBS and hemorrhoids; on Diclofenac, no asa, no SBE prophylaxis; no fmhx of GI malignancy or IBD; no tobacco use. Review of Systems PHQ Score Initial Depression Screen Score: 0 SCORE ROS - Provider Constitutional: no fever, no sweats, no weight loss. Eyes: no glasses, no blurred vision, no visual loss. ENMT: no dentures, no hoarseness, no swallowing difficulties, no hearing loss, no ear infection(s), no nose bleeds. Cardiovascular: normal blood pressure, no chest pain, regular heartbeat, no heart murmur. Respiratory: no shortness of breath, no cough, no asthma, no wheezing. Gastrointestinal: no nausea, no vomiting, no diarrhea, no constipation, no blood in stool, no change in bowel habits, no abdominal pain, no hepatitis. Genitourinary: no kidney stones, no urine infection, no dysuria. Musculoskeletal: no pain, no weakness. Skin: no changing moles, no rash, no skin lumps. Neurologic: no seizures, no epilepsy, no headache. Psychiatric: no emotional or psychiatric problem. Heme/Lymph: no bleeding problems, no anemia, no blood clots, no transfusions. Allergy/Immunologic: no swollen lymph nodes/glands, no IV drug abuse. Other: Additional ROS info: Except as noted in the above Review of Systems and in the History of Present Illness, all other systems have been reviewed and are negative or noncontributory. Physical Exam Vitals & Measurements HR: 70(Peripheral) RR: 16 BP: 152/94 HT: 65 in HT: 165 cm WT: 93.7 kg WT: 206.14 lb BMI: 34.42 HEENT: normal conjunctiva, sclera clear, no scleral icterus, EOM intact, PERRLA, oral mucosa moist without lesions. Neck: trachea midline, no mass, symmetric, no thyromegaly or nodules, no adenopathy Respiratory: lungs CTA, respirations non labored. Cardiovascular: regular rate and rhythm, no murmur, no pedal edema or varicosities. Gastrointestinal:obese, soft, non distended, no tenderness, no masses, no palpable hernias, diastasis recti no, no hepatosplenomegaly; normal bs Lymphatic: no cervical adenopathy, no supraclavicular adenopathy. Musculoskeletal: normal gait, digits and nails without infection, nodes, cyanosis, clubbing. Skin: no rashes, no lesions, no ulcers, no subcutaneous nodules, induration. Psychiatric/Neuro: oriented to time, place, person, judgement normal, affect appropriate for age, insight intact, no focal deficits. Tests: labs reviewed, review of old records completed , Discussed surgical options, risks, and possible complications with patient. Assessment/Plan 1. Positive colorectal cancer screening using Cologuard test (R19.5: Other fecal abnormalities) plan colonoscopy under anesthesia for further evaluation, informed consent obtained. Follow-up No qualifying data available Problem List/Past Medical History Ongoing Anxiety BMI 34.0-34.9,adult Degenerative joint disease Depression Fibrocystic disease of breast Gout Hiatal hernia Hyperlipidemia Hypertension IBS (irritable bowel syndrome) Increased liver enzymes Insomnia Low back pain syndrome Obesity Peripheral neuropathy Positive colorectal cancer screening using Cologuard test Screening for malignant neoplasm of colon Type 2 diabetes mellitus Historical Achilles tendinitis Arthralgia Chest pain Degenerative joint disease of shoulder Displaced comminuted fracture of shaft of humerus, right arm, initial encounter for closed fracture Dyspnea Hip pain Myalgia Pathological dislocation of right shoulder, not elsewhere classified Plantar fasciitis Pressure urticaria Rotator cuff tear Procedure/Surgical History Appendectomy (1976), Arthroplasty of right shoulder, Colonoscopy, Colonoscopy, Rotator cuff repair, Tonsillectomy, VH - Vaginal hysterectomy. Medications carvedilol 6.25 mg Tab, 6.25 mg= 1 tab(s), Oral, BID cyclobenzaprine 10 mg Tab, 20 mg= 2 tab(s), Oral, Bedtime diclofenac sodium 75 mg Oral EC Tab, 75 mg= 1 tab(s), Oral, BID lisinopril 20 mg Tab Pantoprazole [address] Tab paroxetine 40 mg Tab simvastatin 20 mg Tab zolpidem 10 mg oral tablet Allergies No Known Allergies Social History Alcohol Current, Beer, 3-5 times per week, 09/05/2023 Substance Abuse - Denies Substance Abuse, 09/05/2023 Tobacco Never (less than 100 in lifetime) Tobacco Use:. Never (more content not included)... [facility] Comment on above: Result Comment: Elec tronically Signed By: YOHANA NARAYAN, Eron Starks\Date and Time Signed: 09/05/23 15:51 EST Clinical Note 05-02-2022 Note Date & Type Note Facility 05-02-2022 Note PROCEDURE: XR KNEE L T 4V or > COMPARISON: None. HISTORY: Derangement of knee FINDINGS: BONES:No acute fracture or dislocation. Moderate tricompartmental osteoarthropathy most significant in the anterior compartment with joint space narrowing and marginal osteophyte formation. SOFT TISSUES:Negative. No visible soft tissue swelling. EFFUSION:None visible. OTHER: Negative. IMPRESSION: Moderate osteoarthritis Electronically authenticated by: COLLETTE CUMMINGS Date: 2022-05-02 20:56 [facility] Evaluation + Plan note Note Date & Type Note Facility Evaluation + Plan note No data available for this section [facility] [place] Evaluation note Note Date & Type Note Facility Evaluation note Diagnosis Women's annual routine gynecological examination documented in this encounter [facility] Work Phone: Hospital Discharge instructions Note Date & Type Note Facility Hospital Discharge instructions No data available for this section [facility] [place] Progress note Note Date & Type Note Facility Progress note No data available for this section [facility] [place] Summary Purpose Family History No Family History Records FoundNo Family History Records FoundNo Family History Records Found No data available for this section No data available for this section No Family History Records Found Advance Directives No Advanced Directives Records FoundDocuments on File Type Date Recorded Patient Marketing Services Rep Expl anation Advance Directives and Living Will Power of [employer] Hospital Course Note MR#: [id number] [facility] Pt. Name: Maryam Solomon Admitted: 08/23/2018 Discharged: 08/24/2018 Date of : 1955 Physician: Krishna Sofia MD DISCHARGE SUMMARY DISCHARGE ATTENDING DOCTOR: Krishna Sofia MD PRINCIPAL DIAGNOSIS: Right shoulder dislocation. PROCEDURES PERFORMED: Closed reduction of the right shoulder. CONDITION AT DISCHARGE: Stable, discharged to home. HOSPITAL COURSE: This is a 62-year-old female who presented to the emergency department on 08/23/2018 as a transfer from an outside hospital for a right anterior shoulder dislocation. This occurred due to a fall earlier, the day prior, which was mechanical in nature. IMAGING: Studies obtained overnight showed an anterior shoulder dislocation. A CT of the shoulder was obtained prior to reduction, which showed anterior dislocation of the right shoulder with a Hill-Sachs fracture fragment and retraction of a fragment of the humeral tuberosity with no bony Bankart component. The pa (more content not included)... Note MR#: [id number] [facility] Pt. Name: Maryam Solomon Admitted: 08/02/2019 Discharged: 08/03/2019 Date of : 1955 Physician: Krishna Sofia MD DISCHARGE SUMMARY PRINCIPAL DIAGNOSIS: Right shoulder degenerative joint disease. PROCEDURES PERFORMED: Right reverse total shoulder replacement with open biceps tenodesis. COMPLICATIONS: None. CONSULTS: Physical and Occupational Therapy. HOSPITAL COURSE: The patient is a 63-year-old female who presented to [facility] as outpatient with chief complaint of right shoulder pain. After subsequent history, physical examination, radiographic imaging of the patient's right shoulder, it was deemed that the patient had significant right shoulder cuff tear arthropathy with osteoarthritis of the glenohumeral joint. After failing extensive conservative treatment, the risks, benefits, and alternatives to treatment were discussed with the patient. The patient agreed to undergo the above-mentioned procedure. On the day of elise (more content not included)... Assessments Diagnosis Encounter for well woman exam with routine gynecological exam Additional Source Comments INFORMATION SOURCE (unrecogn ized section and content) DATE CREATED AUTHOR 08/20/2019 [facility] DATE CREATED AUTHOR AUTHOR'S ORGANIZ ATION 08/27/2022 [facility] DATE CREATED AUTHOR AUTHOR'S ORGANIZ ATION 09/28/2022 [facility] DATE CREATED AUTHOR AUTHOR'S ORGANIZ ATION 10/19/2023 [facility] Care Teams (unrecognized sec tion and content) Inside Contractor Sales Relationship Specialty Start Date End Date Lala Watson MD [address] [place] [address] PCP - General Family Medicine 05/17/16 FOR RECORDS PERTAINING TO PATIENTS WHO ARE OR HAVE BEEN ENROLLED IN A CHEMICAL DEPENDENCY/SUBSTANCEABUSE PROGRAM, SOME INFORMATION MAY BE OMITTED. This clinical summary was aggregated from multiple sources. Caution should be exercised in using it in the provision of clinical care. This summary normalizes information from multiple sources, and as a consequence, information in this document may materially change the coding, format and clinical context of patient data. In addition, data may be omitted in some cases. CLINICAL DECISIONS SHOULD BE BASED ON THE PRIMARY CLINICAL RECORDS. [facility] [employer] [facility]. provides no warranty or guarantee of the accuracy or completeness of information in this document.
[2024-01-11] MEDS: MORPHINE SULFATE 2 MG/ML SYRINGE IV (17:30)
[2024-01-11] MEDS: ONDANSETRON PF 4 MG/2 ML VIAL IV (17:30)
[2024-01-11] MEDS: BACITRACIN 0.9 GM PACKET 1 PACKET TOPICAL (17:30)
[2024-01-11] MEDS: HYDRALAZINE HCL 20 MG/ML VIAL 10 MG IVP (18:11)
== END 2024-01-11 18:51 | disposition home or self-care (01) ==
PROVIDERS: Emergency Provider Emergency Medicine; PCP Family Medicine
DX: S09.8XXA Other specified injuries of head, initial encounter (principal); S01.511A Laceration without foreign body of lip, initial encounter; M25.571 Pain in right ankle and joints of right foot; S00.83XA Contusion of other part of head, initial encounter; S50.01XA Contusion of right elbow, initial encounter; W19.XXXA Unspecified fall, initial encounter; I10 Essential (primary) hypertension; Z79.899 Other long term (current) drug therapy; E11.9 Type 2 diabetes mellitus without complications; G62.9 Polyneuropathy, unspecified; E66.9 Obesity, unspecified; K58.9 Irritable bowel syndrome, unspecified; G47.00 Insomnia, unspecified; E78.5 Hyperlipidemia, unspecified; K44.9 Diaphragmatic hernia without obstruction or gangrene; M10.9 Gout, unspecified; F32.A Depression, unspecified; F41.9 Anxiety disorder, unspecified; Z90.710 Acquired absence of both cervix and uterus; Z90.89 Acquired absence of other organs; Z98.890 Other specified postprocedural states; Z96.611 Presence of right artificial shoulder joint; Z90.49 Acquired absence of other specified parts of digestive tract
CPT/HCPCS: 70450; 70486; 72125; 73080; 73610; 96374; 96375; 99285

== ENCOUNTER 2024-02-09 14:05 | Outpatient (RCR) | payer MEDICARE, SELFPAY | END 2024-03-29 16:11 | disposition home or self-care (01) | LOC: PT 14:05 | PROVIDERS: PCP Family Medicine; Visit Provider Podiatrist Foot & Ankle Surgery | DX: S86.011D Strain of right Achilles tendon, subsequent encounter (principal) | CPT/HCPCS: 97110; 97112; 97162; 97530; G0283 ==

== ENCOUNTER 2024-04-19 09:22 | Outpatient (OUT) | payer MEDICARE, SELFPAY ==
--- NOTE | 2024-04-19 | XR_ITS ---
[address] [address] Patient Name: RAJ SOLOMON MRN: [id number] date: 1955 Sex: F Assigned Patient Location: [facility] Current Patient Location: [facility] Accession/Order Number: [id number] Exam Date: 04/19/2024 09:30 Report Date: 04/19/2024 09:55 At the request of: LALA GONCALVES Procedure: XR DEXA axial skeleton EXAMINATION: XR DEXA axial skeleton, 04/19/2024 9:30 AM EDT HISTORY: OTHER PRIMARY OVARIAN FAILURE COMPARISON: 2012. TECHNIQUE: Dual-energy X-ray absorptiometry (DEXA) bone density study performed for the axial skeleton. HISTORY: OTHER PRIMARY OVARIAN FAILURE FINDINGS: Bone mineral density lumbar spine L1-L4 measures 1.383 g/sq cm. T score 1.7. WHO classification: Normal. Lowest bone mineral density right femoral neck measures 1.017 g/sq cm. T score -0.2. WHO classification: Normal XR/XR DEXA axial skeleton IMPRESSION: Normal bone mineral density. Low fracture risk Pharmacologic treatment recommendations * No uniform recommendation applies to all patients. Management plans must be individualized. * Consider initiating pharmacologic treatment in postmenopausal women and men >= 50 years of age who have the following: Primary fracture prevention: * T-score <= - 2.5 at the femoral neck, total hip, lumbar spine, 33% radius (some uncertainty with existing data) by DXA. * Low bone mass (osteopenia: T-score between - 1.0 and - 2.5) at the femoral neck or total hip by DXA with a 10-year hip fracture risk >= 3% or a 10-year major osteoporosis-related fracture risk >= 20% (i.e., clinical vertebral, hip, forearm, or proximal humerus) based on the [place]-adapted FRAXregistered model. Secondary fracture prevention: * Fracture of the hip or vertebra regardless of BMD [4, 5]. * Fracture of proximal humerus, pelvis, or distal forearm in persons with low bone mass (osteopenia: T-score between - 1.0 and - 2.5). The decision to treat should be individualized in persons with a fracture of the proximal humerus, pelvis, or distal forearm who do not have osteopenia or low BMD [12, 13]. Marie MS, Cielo SL, Hema KL, Danelle EM, Amanda KG, Lopez AJ, Jaden ES. The clinician's guide to prevention and treatment of osteoporosis. Osteoporos Int. 2021;33(10):9025-4237. doi: 10.1007/w15081-890-01672-m. Epub 2021Feb 17. Erratum in: Osteoporos Int. 2021May 19;: PMID: [id number]; PMCID: [id number]. Electronically authenticated by: COLLETTE CUMMINGS Date: 04/19/2024 09:55
--- OUTSIDE RECORDS SUMMARY | 2024-04-19 09:28 | XMS_ITS ---
Patient Summarization (C-CDA 2.1 CCD) Created on: April 19, 2024 MARYAM SOLOMON : 1955 Sex: Female Author Organization Sample organization Care Team Providers Care Respite Coordinator Name Role Phone ELATTAR, OSAMA Admitting Unavailable ELATTAR, OSAMA Attending Unavailable LALA WATSON Primary Care Unavailable SELF, REFERRED Referring Unavailable PA Procedure Practitioner Unavailab le KENNETHATTAR, OSAMA Surgeon Unavailable PA Procedure Practitioner Unavailab AYANNA Back Surgeon Unavailable ADILENE LIU Referring Unavailable LALA WATSON Primary Care Unavailable ELATTAR, OSAMA Attending Unavailable ELATTAR, OSAMA Admitting Unavailable PA Procedure Practitioner Unavailab le ELATTAR, OSAMA Surgeon Unavailable ELATTAR, OSAMA Admitting Unavailable JOSE ROBERTOR, STONEMA Attending Unavailable LALA WATSON Referring Unavailable LALA WATSON Primary Care Unavailable PA Procedure Practitioner Unavailab thelma SOFIA, OSAMA Surgeon Unavailable Lala Watson Primary Care Provider Lala Watson MD Primary Care Provider [phone] JANUSZ FLORES Referring Unavailable LALA WATSON Primary Care Unavailable DR LALA WATSON Attending Unavailable SACHA, DR REEVES Primary Care Unavailable SACHA, DR REEVES Admitting Unavailable DR LALA WATSON Primary Care Unavailable DR JANUSZ FLORES Attending Unavailable DR JANUSZ FLORES Admitting Unavailable ZIDR MATTHEW TAMEZ Consulting Unavailable DR JANUSZ FLORES Consulting Unavailable DR LALA WATSON Admitting Unavailable DR LALA WATSON Attending Unavailable DR LALA WATSON Consulting Unavailable DR LALA WATSON Primary Care Unavailable DR COLLETTE CUMMINGS V Consulting Unavailable Lala Watson Primary Care Physician [phone] Eron MULLER Attending Unavailable Eron MULLER Attending Unavailable Lala Watson Referring Unavailable Eron MULLER Attending Unavailable Eron MULLER Attending Unavailable Encounters Encounter Date Encounter Type Care Provider Facility Start: 10-10-2023 End: 10-11-2023 ambulatory Eron R NILL Facility:[facility] Start: 10-10-2023 End: 10-10-2023 Patient encounter procedure Eron R NILL General Surgery [facility] Start: 09-27-2023 End: 09-28-2023 ambulatory Eron R NILL Facility:CD:[id number] Start: 09-05-2023 End: 09-06-2023 ambulatory Eron R NILL Facility:[facility] Start: 09-05-2023 End: 09-05-2023 Patient encounter procedure Eron R NILL General Surgery [facility] Start: 11-22-2022 ambulatory Eron R NILL Facility : [facility] Start: 09-21-2022 End: 09-22-[address] LALA WATSON Facility:[facility] Start: 08-22-2022 End: 08-23-[address] [facility] Start: 08-22-2022 Encounter for gynecological examination (general) (routine) without abnormal findings [facility] Start: 08-22-2022 End: 08-22-2022 Patient encounter procedure Lala Waston MD Work Phone: [facility] Start: 08-22-2022 End: 08-22-2022 Subsequent hospital visit by physician Lala Watson MD Work Phone: [facility] Comment on above: Women's annual routi ne gynecological examination Start: 05-02-2022 End: 05-03-[address] LALA WATSON Facility:[facility] Start: [address] LALA WATSON Facility :[facility] Start: 04-20-2020 End: 04-20-2020 Subsequent hospital visit by physician Lala [facility] Laboratory Comment on above: Encounter for well w iveth exam with routine gynecological exam Start: 08-02-2019 End: 08-03-2019 [facility] Start: 11-27-2018 End: 11-28-2018 Patient encounter procedure OSAMA ELATTAR Facility:[facility] Start: 08-23-2018 End: 08-24-2018 Evaluation and management of inpatient ADILENE LIU Facility:[facility] Immunizations Immunization Date Immunization Notes Care Provider Brian augustin 07-23-2023 influenza virus vaccine, unspecified formulation Eron YOHANA [facility] 09-21-2022 influenza virus vaccine, unspecified formulation [employer] [facility] 09-21-2022 SARS-CoV-2 (COVID-19 ) mRNAMUL.ORD![id number] Eron Chilicon [employer] [facility] 03-23-2022 SARS-CoV-2 mRNA (omfiwiwtjnr-kmwg-gzqes se) vaccine [employer] [facility] 08-09-2021 SARS-CoV-2 (COVID-19 ) mRNA BNT-162b2 vax [employer] [facility] Comment on above: Result Comment: 2022: [id number] 01-12-2021 SARS-CoV-2 (COVID-19 ) mRNA BNT-162b2 vax [employer] [facility] 12-21-2020 SARS-CoV-2 (COVID-19 ) mRNA BNT-162b2 vax [employer] [facility] Medications Current Medications Medication Drug Class(es) Dates [...] BEDTIME NEEDED Start Date: 03/17/21 Status: Ordered Payers Date Payer Category Payer Unknown [id number] 2019 Unknown BCBS [place] P PO xxxxxxxxxxxxxxx 2019-Present [address] [place] [address] xxxxxxxxxxxxxxx [id number] 2019 Unknown [id number] 1959 Self-pay [id number] 1959 Unknown [id number] 1959 Unknown [id number] 1955 Unknown [id number] 1955 Unknown [id number] 1955 Unknown [id number] [id number] 1955 Unknown [id number] [id number] 1955 Unknown [id number] [id number] 1955 Unknown [id number] [id number] 1955 Unknown [id number] [id number] 1955 Unknown [id number] [id number] 1955 Unknown [id number] [id number] 1955 Unknown [id number] [id number] 1955 Unknown [id number] Plan of Treatment Date Care Activity Detail Author Start: 09-21-2023 End: 09-21-2023 Patient encounter procedure 09/21/2023 Office Visit Obstetrics and Gynecology Janusz Flores MD [address] [place] [address] [address] [place] [address] [facility] Start: 08-24-2023 End: 08-24-2023 Patient encounter procedure 08/24/2023 Office Visit Obstetrics and Gynecology Janusz Flores MD [address] [place] [address] [address] [place] [address] [facility] Start: 08-25-2022 Screening for malign ant neoplasm of breast Breast cancer screen [facility] Start: 05-23-2022 Influenza vaccination Flu vaccine (# 1) [facility] Start: 05-18-2022 COVID-19 Vaccine (5 - Booster for Pfizer series) COVID-19 Vaccine (5 - Booster for Pfizer series) [facility] Start: 03-08-2022 Pneumococcal 65+ yea rs Vaccine (2 - PPSV23 if available, else PCV20) Pneumococcal 65+ years Vaccine (2 - PPSV23 if available, else PCV20) [facility] Start: 06-23-2020 Influenza vaccination Flu vacc ine (Season Ended) [place], [place] Start: 05-17-2019 Screening for malign ant neoplasm of cervix Cervical cancer screen [place], [place] Start: 09-12-2018 Screening for malign ant neoplasm of breast Breast cancer screen [place], [place] Start: 2010 Screening for osteoporosis DEXA (modify frequency per FRAX score) [facility] Start: 2005 Screening for malign ant neoplasm of colon Colon cancer screen colonoscopy [place], [place] Start: 2005 Shingles Vaccine (1 of 2) Shingles Vaccine (1 of 2) [facility] Start: 2000 Screening for malign ant neoplasm of colon [facility] Start: 1995 Diabetes screen Diabetes screen [place], [place] Start: 1990 Diabetes screen Diabetes screen [facility] Start: 1974 DTaP/Tdap/Td vaccine (1 - Tdap) DTaP/Tdap/Td vaccine (1 - Tdap) [facility] Start: 1973 Hepatitis C screening Hepatitis C sc diazn [facility] Start: 1970 HIV screening HIV screen [place], [place] Start: 1967 Depression Screen Depression Screen [facility] Start: 1965 Lipid panel [facility] Start: 1955 Creatinine measurement Creatinine mo nitoring [place], [place] Start: 1955 Hepatitis C screening Hepatitis C sc [place], [place] Start: 1955 Potassium monitoring Potassium monit oring [place], [place] End: 04-20-2020 Cytopathology procedure, preparation of smear, genital source [facility] Routine Encounter For Well Woman Exam With Routine Gynecological Exam 1 Occurrences starting 04/20/2020 until 04/20/2020 [place] Comment on above: 1 Occurrences starti ng 04/20/2020 until 04/20/2020 End: 08-22-2022 Cytopathology procedure, preparation of smear, genital source [facility] Lab Routine Women's annual routine gynecological examination 1 Occurrences starting 08/22/2022 until 08/22/2022 [facility] Work Phone: Comment on above: 1 Occurrences starti ng 08/22/2022 until 08/22/2022 Problems Active Problems Problem Classification Problem Date [...] Rupture of rotator cuff of shoulder 11-16-2022 Procedures Date Procedure Procedure Detail Performing Clinician Start: 09-27-2023 Colonoscopy Eron ARANDA Start: 08-03-2019 INTRODUCTION OF INFL UENZA VACCINE [...] above: Performed By: #### 6 [id number] #### [address] Start: 08-23-2018 REPOSITION RIGHT MIMA ULDER JOINT, EXTERNAL APPROACH OSAMA ELATTAR Start: 10-23-1976 Appendectomy Eron ARANDA Comment on above: [facility] Arthroplasty of righ t shoulder Eron MULLER Colonoscopy Eron MULLER Colonoscopy Eron MULLER Comment on above: x 2 ([facility]) Repair of musculoten dinous cuff of shoulder Eron MULLER Tonsillectomy Eron MULLER Vaginal hysterectomy Eron MULLER Results Test Name Value Interpretation Reference Range [...] for choosing us for your care. Normal [facility] General Surgery Office/Clini c Noteon 10-10-2023 General [...] virus vaccine, inactivated 09/21/2022 Recorded SARS-CoV-2 (COVID-19) mRNAMUL.ORD![id number] 09/21/2022 Recorded SARSCoV2 mRNA(moises awan) vac 03/23/2022 Recorded SARS-CoV-2 (COVID-19) mRNA BNT-162b2 vax 08/09/2021 Recorded 2023-08-31: [id number] SARS-CoV-2 (COVID-19) mRNA BNT-162b2 vax 01/12/2021 Recorded SARS-CoV-2 (COVID-19) mRNA BNT-162b2 vax 12/21/2020 Recorded Normal [facility] Comment on above: Result Comment: Elec tronically Signed By: YOHANA NARAYAN, Eron Starks\Date and Time Signed: 10/10/23 14:58 EST Reminderson 10-10-2023 Reminders - From: Brigette Arce LPN To: N - Clinical; Sent: 10/10/2023 14:44:13 EST Show up: 08/28/2033 07:00:00 EST Subject: colonoscopy recall Due Date/Time: 09/27/2033 07:00:00 EST Reminder/Recall Patient due for screening colonoscopy 09/27/2033. [facility] Pathology Noteon 10-04-2023 Pathology Note [id number]#1. 00TIFF [facility] Outside Colonoscopyon 2022 Outside Colonoscopy [id number] 20 [id number]#1.0 0TIFF [facility] Consent for Procedure/Surger yon 09-06-2023 Consent for Procedure/Surgery [id number]#1. 00TIFF [facility] Facesheeton 09-06-2023 Facesheet [id number]#1. 00TIFF [facility] Ambulatory Visit Summaryon 11-05-2022 Ambulatory Visit Summary MARYAM SOLOMON :1955 Visit Date:09/05/2023 Ambulatory Visit Instructions Your Diagnosis Positive colorectal cancer screening using Cologuard test Your Care Team Attending Physician - YOHANA NARAYAN, Eron Huffman Primary Care Physician - Lala Watson MD Referring Physician - Lala Watson MD This [...] for choosing us for your care. Normal [facility] Lab Reportson 08-31-2023 Lab Reports [id number]#1.0 0TIFF [facility] Consultation Noteon 08-28-20 23 Consultation Note [id number]#1.0 0TIFF [facility] Physician Referralon 023 Physician Referral [id number]#1.0 0CD:127 Normal [facility] MG MAMM SCREEN 3D SERINA CADon 09-21-2022 MG MAMM SCREEN 3D SERINA CAD Patient: MARYAM SOLOMON Exam Date: 09/21/2022 : 1955 Gender:F Ordering : DR JANUSZ FLORES Admission #: [id number] Family : Order #: [id number] CLICK HERE TO VIEW EXAM RADIOLOGY REPORT [...] lung cancer at age 62. LOCATION: [facility] BREAST COMPOSITION: Almost entirely fatty. FINDINGS: DIAGNOSTIC [...] Reynoso M.D. on 09/21/2022 at 15:46 Normal [facility] Cytologyon 08-22-2022 Cytology (NOTE) INTERPRETATION Cervical material, (ThinPrep vial, Imaging-assisted review): Specimen Adequacy: Satisfactory for evaluation. -Endocervical/transfor mation zone component is absent. Descriptive Diagnosis: Negative for intraepithelial lesion or malignancy. 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 High risk HPV DNA testing is requested if the diagnosis is abnormal GYNECOLOGIC CYTOLOGY REPORT Patient Name: MARYAM SOLOMON [facility] Rec: [id number] Path Number: [id number] [facility] ANATOMIC PATHOLOGY [facility] [place], [place] [address] [facility] Comment on above: Performed By: #### P PPVP #### [facility] [address] [place] [address] Service Associate: Joey Rutherford MD CBC AUTO DIFFon 05-02-2022 BASO # 0.1 103/ul Normal 0.0-0.1 [facility] Comment on above: Performed By: #### C BC #### [facility] [address] [place], [place] [address] Dr. Sona Cortez Basophils/100 WBC (Bld) 0.7 % Normal 0.2-2.0 [facility] Comment on above: Performed By: #### C BC #### [facility] [address] [place] [address] Dr. Sona Cortez EO # 0.2 103/ul Normal 0.0-0.7 [facility] Comment on above: Performed By: #### C BC #### [facility] [address] [place] [address] Dr. Sona Cortez Eosinophils/100 WBC (Bld) 2.1 % Normal 0.9-7.0 [facility] Comment on above: Performed By: #### C BC #### [facility] [address] [place] [address] Dr. Sona Cortez Erythrocyte distribution width (RBC) [Ratio] 12.1 % Normal 11.0-15.0 [facility] Comment on above: Performed By: #### C BC #### [facility] [address] [place] [address] Dr. Sona Cortez Hematocrit (Bld) [Volume fraction] 37.6 % Normal 36.0-48.0 [facility] Comment on above: Performed By: #### C BC #### [facility] [address] [place] [address] Dr. Sona Cortez Hemoglobin (Bld) [Mass/Vol] 12.5 g/dL Normal 12.0-16.0 [facility] Comment on above: Performed By: #### C BC #### [facility] [address] [place] [address] Dr. Sona Cortez IG # 0.01 10e3/ul Normal 0.00-0.03 [facility] Comment on above: Performed By: #### C BC #### [facility] [address] [place] [address] Dr. Sona Cortez IG % 0.1 % Normal 0.0-0.5 [facility] Comment on above: Performed By: #### C BC #### [facility] [address] [place] [address] Dr. Sona Cortez LYMPH # 2.0 103/ul Normal 1.2-3.8 [facility] Comment on above: Performed By: #### C BC #### [facility] [address] [place] [address] Dr. Sona Cortez Lymphocytes/100 WBC (Bld) 28.3 % Normal 20.5-60.0 [facility] Comment on above: Performed By: #### C BC #### [facility] [address] [place] [address] Dr. Sona Cortez MANUAL DIFF REQ NO Normal [facility] Comment on above: Performed By: #### C BC #### [facility] [address] [place] [address] Dr. Sona Cortez MCH (RBC) [Entitic mass] 31.9 pg Normal 26.7-34.0 [facility] Comment on above: Performed By: #### C BC #### [facility] [address] [place] [address] Dr. Sona Cortez MCHC (RBC) [Mass/Vol] 33.2 g/dL Normal 29.9-35.2 [facility] Comment on above: Performed By: #### C BC #### [facility] [address] [place] [address] Dr. Sona Cortez MCV (RBC) [Entitic vol] 95.9 fL Normal 81.0-99.0 [facility] Comment on above: Performed By: #### C BC #### [facility] [address] [place] [address] Dr. Sona Cortez MONO # 0.4 103/ul Normal 0.3-0.8 [facility] Comment on above: Performed By: #### C BC #### [facility] [address] [place] [address] Dr. Sona Cortez Monocytes/100 WBC (Bld) 5.7 % Normal 1.7-12.0 [facility] Comment on above: Performed By: #### C BC #### [facility] [address] [place] [address] Dr. Sona Cortez NEUT # 4.4 103/ul Normal 1.4-6.5 [facility] Comment on above: Performed By: #### C BC #### [facility] [address] [place] [address] [address] Sona Cortez Neutrophils/100 WBC (Bld) 63.1 % Normal 43.0-75.0 [facility] Comment on above: Performed By: #### C BC #### [facility] [address] [place] [address] [address] Sona Cortez Platelet mean volume (Bld) [Entitic vol] 8.5 fL Critically low 9.5-13.5 [facility] Comment on above: Performed By: #### C BC #### [facility] [address] [place] [address] [address] Sona Cortez PLT 313 103/ul Normal 150-450 [facility] Comment on above: Performed By: #### C BC #### [facility] [address] [place] [address] [address] Sona Cortez RBC 3.92 106/ul Critically low 4.20-5.[address] [facility] Comment on above: Performed By: #### C BC #### [facility] [address] [place] [address] [address] Sona Cortez WBC 7.0 103/ul Normal 4.0-11.0 [facility] Comment on above: Performed By: #### C BC #### [facility] [address] [place] [address] [address] Sona Cortez FREE THYROXINE INDEX T7on FTI 2.31 Normal 1.30-4.50 [facility] Comment on above: Performed By: #### U ANNABELLE, T7, TSH, CMP, LIPID #### [facility] [address] [place] [address] [address] Sona Cortez T3U 33.0 % Normal 30.0-39.0 [facility] Comment on above: Performed By: #### U ANNABELLE, T7, TSH, CMP, LIPID #### [facility] [address] [place] [address] [address] Sona Cortez T4 [Mass/Vol] 7.00 ug/dL Normal 4.80-13.90 [facility] Comment on above: Performed By: #### U ANNABELLE, T7, TSH, CMP, LIPID #### [facility] [address] [place] [address] [address] Sona Cortez GLYCOHEMOGLOBIN A1Con 2021 ADA RECOMMENDATION SEE BELOW Normal [facility] Comment on above: Result Comment: ADA RECOMMENDED LIMIT 4.0 - 6.0 ADA THERAPEUTIC TARGET < 7.0 ACTION SUGGESTED > 7.0 Performed By: #### A 1C #### [facility] [address] [place] [address] [address] Sona Cortez Glucose [Mass/Vol] 131 mg/dL Normal [facility] Comment on above: Performed By: #### A 1C #### [facility] [address] [place] [address] Dr. Sona Cortez HbA1c (Bld) [Mass fraction] 6.2 % Normal 4.5-6.2 [facility] Comment on above: Performed By: #### A 1C #### [facility] [address] [place] [address] Dr. Sona Cortez IRONon 05-02-2022 Iron [Mass/Vol] 98.0 ug/dL Normal 50.0-170.[address] [facility] Comment on above: Performed By: #### V ITAD, IRON #### [facility] [address] [place] [address] Dr. Sona Cortez LIPID PROFILEon 05-02-2022 CHOL-HDL RATIO NORM SEE BELOW Normal [facility] Comment on above: Result Comment: 3.3 - 4.4 LOW RISK 4.4 - 7.1 AVERAGE RISK 7.1 - 11.0 MODERATE RISK >11.0 HIGH RISK Performed By: #### V ITAD, IRON #### [facility] [address] [place] [address] Dr. Sona Cortez Cholesterol [Mass/Vol] 187 mg/dL Normal <=200 [facility] Comment on above: Performed By: #### V ITAD, IRON #### [facility] [address] [place] [address] [address] Sona Cortez Cholesterol in HDL [Mass/Vol] 59 mg/dL Normal 40-60 [facility] Comment on above: Performed By: #### V ITAD, IRON #### [facility] [address] [place] [address] [address] Sona Cortez Cholesterol in LDL [Mass/Vol] 94.8 mg/dL Normal [facility] Comment on above: Performed By: #### V ITAD, IRON #### [facility] [address] [place] [address] [address] Sona Cortez Cholesterol.total/Ch olesterol in HDL [Mass ratio] 3.2 {ratio} Normal [facility] Comment on above: Performed By: #### V ITAD, IRON #### [facility] [address] [place] [address] Dr. Sona Cortez HDL NORMAL > or = 60 mg/dl - LO W CARDIOVASCULAR RISK <40 mg/dl - HIGH CARDIOVASCULAR RISK Normal [facility] Comment on above: Performed By: #### V ITAD, IRON #### [facility] [address] [place] [address] Dr. Sona Cortez LDL CALC NORMAL SEE BELOW Normal [facility] Comment on above: Result Comment: <100 mg/dl OPTIMAL 100 - 129 mg/dl NEAR OR ABOVE OPTIMAL 130 - 159 mg/dl BORDERLINE HIGH 160 - 189 mg/dl HIGH >190 mg/dl VERY HIGH Performed By: #### V ITAD, IRON #### [facility] [address] [place] [address] Dr. Sona Cortez Triglyceride [Mass/Vol] 166 mg/dL Critically high <=150 [facility] Comment on above: Performed By: #### V ITAD, IRON #### [facility] [address] [place] [address] Dr. Sona Cortez VLDL CALC 33.2 mg/dL Normal [facility] Comment on above: Performed By: #### V ITAD, IRON #### [facility] [address] [place] [address] Dr. Sona Cortez PROF 14(COMP METB)on 022 Albumin [Mass/Vol] 4.1 g/dL Normal 3.4-5.0 [facility] Comment on above: Performed By: #### U ANNABELLE, T7, TSH, CMP, LIPID #### [facility] [address] [place] [address] Dr. Sona Cortez Albumin/Globulin [Mass ratio] 1.2 {ratio} Normal [facility] Comment on above: Performed By: #### U ANNABELLE, T7, TSH, CMP, LIPID #### [facility] [address] [place] [address] Dr. Sona Cortez ALP [Catalytic activity/Vol] 87 U/L Normal 46-116 [facility] Comment on above: Performed By: #### U ANNABELLE, T7, TSH, CMP, LIPID #### [facility] [address] [place] [address] Dr. Sona Cortez ALT [Catalytic activity/Vol] 31 U/L Normal 14-59 [facility] Comment on above: Performed By: #### U ANNABELLE, T7, TSH, CMP, LIPID #### [facility] [address] [place] [address] Dr. Sona Cortez Anion gap [Moles/Vol] 14.8 mmol/L Normal [facility] Comment on above: Performed By: #### U ANNABELLE, T7, TSH, CMP, LIPID #### [facility] [address] [place] [address] Dr. Sona Cortez AST [Catalytic activity/Vol] 17 U/L Normal 15-37 [facility] Comment on above: Performed By: #### U ANNABELLE, T7, TSH, CMP, LIPID #### [facility] Laboratory [address] [place] [address] Dr. Sona Cortez Bilirubin [Mass/Vol] 0.4 mg/dL Normal 0.2-1.0 [facility] Comment on above: Performed By: #### U ANNABELLE, T7, TSH, CMP, LIPID #### [facility] [address] [place] [address] Dr. Sona Cortez Calcium [Mass/Vol] 9.1 mg/dL Normal 8.5-10.1 [facility] Comment on above: Performed By: #### U ANNABELLE, T7, TSH, CMP, LIPID #### [facility] [address] [address] [address] Sona Cortez Chloride [Moles/Vol] 100 mmol/L Normal 98-107 [facility] Comment on above: Performed By: #### U ANNABELLE, T7, TSH, CMP, LIPID #### [facility] [address] [address] [address] Sona Cortez CO2 [Moles/Vol] 27.4 mmol/L Normal 21.0-32.0 [facility] Comment on above: Performed By: #### U ANNABELLE, T7, TSH, CMP, LIPID #### [facility] [address] [place] [address] Dr. Sona Cortez Creatinine [Mass/Vol] 1.05 mg/dL Critically high 0.55-1.02 [facility] Comment on above: Performed By: #### U ANNABELLE, T7, TSH, CMP, LIPID #### [facility] [address] [place] [address] Dr. Sona Cortez EGFR-AF BELIZEAN >60 Normal >=60 [facility] Comment on above: Performed By: #### U ANNABELLE, T7, TSH, CMP, LIPID #### [facility] [address] [place] [address] Dr. Sona Cortez EGFR-NON AF BELIZEAN 52 mL/min/1.73m2 Critically low >=60 [facility] Comment on above: Performed By: #### U ANNABELLE, T7, TSH, CMP, LIPID #### [facility] [address] [place] [address] Dr. Sona Cortez Globulin (S) [Mass/Vol] 3.5 g/dL Normal [facility] Comment on above: Performed By: #### U ANNABELLE, T7, TSH, CMP, LIPID #### [facility] [address] [place] [address] Dr. Sona Cortez Glucose [Mass/Vol] 149 mg/dL Critically high 74-106 [facility] Comment on above: Performed By: #### U ANNABELLE, T7, TSH, CMP, LIPID #### [facility] [address] [place] [address] Dr. Sona Cortez Potassium [Moles/Vol] 4.2 mmol/L Normal 3.5-5.1 [facility] Comment on above: Performed By: #### U ANNABELLE, T7, TSH, CMP, LIPID #### [facility] [address] [address] [address] Sona Cortez Protein [Mass/Vol] 7.6 g/dL Normal 6.4-8.2 [facility] Comment on above: Performed By: #### U ANNABELLE, T7, TSH, CMP, LIPID #### [facility] [address] [address] [address] Sona Cortez Sodium [Moles/Vol] 138 mmol/L Normal 136-145 [facility] Comment on above: Performed By: #### U ANNABELLE, T7, TSH, CMP, LIPID #### [facility] [address] [place] [address] Dr. Sona Cortez Urea nitrogen [Mass/Vol] 17.0 mg/dL Normal 7.0-18.0 [facility] Comment on above: Performed By: #### U ANNABELLE, T7, TSH, CMP, LIPID #### [facility] [address] [address] [address] Sona Cortez Urea nitrogen/Creatinine [Mass ratio] 16.2 mg/mg Normal [facility] Comment on above: Performed By: #### U ANNABELLE, T7, TSH, CMP, LIPID #### [facility] [address] [address] [address] Sona Cortez TSHon 05-02-2022 TSH 2.358 uIU/mL Normal 0.358-3.740 [facility] Comment on above: Performed By: #### U ANNABELLE, T7, TSH, CMP, LIPID #### [facility] [address] [address] [address] Sona Cortez URIC ACID SERUMon 05-02-2022 Urate [Mass/Vol] 5.2 mg/dL Normal 2.6-6.0 [facility] Comment on above: Performed By: #### U ANNABELLE, T7, TSH, CMP, LIPID #### [facility] [address] [place] [address] Dr. Sona Cortez VITAMIN D 25 OHon 05-02-2022 VIT D 25-OH 15.6 ng/mL Normal The [facility] Comment on above: Performed By: #### V ITAD, IRON #### [facility] [address] [address] [address] Sona Cortez VIT D RANGES SEE BELOW Normal The [facility] Comment on above: Result Comment: <20 ng/mL Vit D deficient 20 - <30 ng/mL Vit D insufficient 30 - 100 ng/mL Vit D sufficient >100 ng/mL Potential Toxicity Performed By: #### V ITAD, IRON #### [facility] [address] [address] [address] Sona Cortez Operative Reporton 9 Operative Report MR#: [id number] [facility] Pt. Name: Maryam Solomon Room #: 6AB [id number] Discharge 08/03/2019 Date: Birthdate: 1955 OPERATIVE REPORT DATE OF SURGERY: 08/02/2019 SURGEON: Krishna Sofia MD MACHINE FILLER SHREDDER: Tirso Gonzales MD. PREOPERATIVE DIAGNOSIS: Right shoulder [...] the humeral head, and we used a maintenance mechanic supervisor to make sure the stem was flushed [...] Sofia MD Date Trans: 08/05/2019 01:24 A/macho [id number] cc: Lala Watson M.D. [address] [address] Normal The [facility] BASIC METABOLIC PANELon 07-23 Calcium [Mass/Vol] 8.9 mg/dL Normal 8.6-10.3 [facility] Comment on above: Order Comment: No: D o not add to previous draw Performed By: #### 5 6101 #### [facility] [address] [place] [address], [facility] Chloride [Moles/Vol] 104 mmol/L Normal 98-107 [facility] Comment on above: Order Comment: No: D o not add to previous draw Performed By: #### 5 6101 #### [facility] [address] [place] [address], [place] CO2 [Moles/Vol] 30 mmol/L Normal 21-31 The [facility] Comment on above: Order Comment: No: D o not add to previous draw Performed By: #### 5 6101 #### [facility] [address] [place] [address], [place] Creatinine [Mass/Vol] 0.94 mg/dL Normal 0.60-1.20 [facility] Comment on above: Order Comment: No: D o not add to previous draw Performed By: #### 5 6101 #### [facility] [address] [place] [address], [place] GFR/1.73 sq M predicted among blacks MDRD (S/P/Bld) [Vol rate/Area] mL/min/{1.73_m2} Normal >60 [facility] Comment on above: Order Comment: No: D o not add to previous draw Performed By: #### 5 6101 #### [facility] [address] [place] [address], [place] GFR/1.73 sq M predicted among non-blacks MDRD (S/P/Bld) [Vol rate/Area] mL/min/{1.73_m2} Normal >60 The [facility] Comment on above: Order Comment: No: D o not add to previous draw Performed By: #### 5 6101 #### [facility] [address] [place] [address], [place] Glucose [Mass/Vol] 136 mg/dL High 70-100 [facility] Comment on above: Order Comment: No: D o not add to previous draw Performed By: #### 5 6101 #### [facility] [address] [place] [address], [place] Potassium [Moles/Vol] 4.4 mmol/L Normal 3.5-5.1 [facility] Comment on above: Order Comment: No: D o not add to previous draw Performed By: #### 5 6101 #### [facility] [address] [place] [address], [place] Sodium [Moles/Vol] 141 mmol/L Normal 136-145 [facility] Comment on above: Order Comment: No: D o not add to previous draw Performed By: #### 5 6101 #### [facility] [address] Urea nitrogen [Mass/Vol] 12 mg/dL Normal 7-25 The [facility] Comment on above: Order Comment: No: D o not add to previous draw Performed By: #### 5 6101 #### [facility] [address] [place] [address], [facility] CBC W/DIFFon 08-03-2019 ABS BASOPHILS 0.0 10*3/uL Normal 0.0-0.2 The [facility] Comment on above: Order Comment: No: D o not add to previous draw Performed By: #### 5 6101 #### [facility] [address] [place] [address], [facility] ABS IMM GRANS 0.1 10*3/uL Normal 0.0-0.2 The [facility] Comment on above: Order Comment: No: D o not add to previous draw Performed By: #### 5 6101 #### [facility] [address] [facility] [place] [place] [address], [facility] ABS NEUTROPHILS 8.0 10*3/uL High 1.6-7.6 The [facility] Comment on above: Order Comment: No: D o not add to previous draw Performed By: #### 5 6101 #### [facility] [address] [place] [address], [facility] Basophils/100 WBC (Bld) 0.1 % Normal 0.0-1.0 The [facility] Comment on above: Order Comment: No: D o not add to previous draw Performed By: #### 5 6101 #### [facility] [address] [place] [address], [facility] Eosinophils (Bld) [#/Vol] 0.0 10*3/uL Normal 0.0-0.5 The [facility] Comment on above: Order Comment: No: D o not add to previous draw Performed By: #### 5 6101 #### [facility] [address] [place] [address], [facility] Eosinophils/100 WBC (Bld) 0.0 % Normal 0.0-6.0 The [facility] Comment on above: Order Comment: No: D o not add to previous draw Performed By: #### 5 6101 #### [facility] [address] [place] [address], [facility] Erythrocyte distribution width (RBC) [Ratio] 12.1 % Normal 11.5-15.0 The [facility] Comment on above: Order Comment: No: D o not add to previous draw Performed By: #### 5 6101 #### [facility] [address] [place] [address], [facility] Hematocrit (Bld) [Volume fraction] 29.4 % Low 36.0-45.0 The [facility] Comment on above: Order Comment: No: D o not add to previous draw Performed By: #### 5 6101 #### [facility] [address] [place] [address], [facility] Hemoglobin (Bld) [Mass/Vol] 9.5 g/dL Low 12.0-15.0 The [facility] Comment on above: Order Comment: No: D o not add to previous draw Performed By: #### 5 6101 #### [facility] [address] [place] [address], [facility] IMMATURE GRANS 0.5 % Normal 0.0-1.0 The [facility] Comment on above: Order Comment: No: D o not add to previous draw Performed By: #### 5 6101 #### [facility] [address] [place] [address], [facility] Lymphocytes (Bld) [#/Vol] 1.3 10*3/uL Normal 1.2-4.0 The [facility] Comment on above: Order Comment: No: D o not add to previous draw Performed By: #### 5 6101 #### [facility] [address] [facility] Lymphocytes/100 WBC (Bld) 13.1 % Low 20.0-45.0 The [facility] Comment on above: Order Comment: No: D o not add to previous draw Performed By: #### 5 6101 #### [facility] [address] [facility] [place] [place] [address], [facility] MCH (RBC) [Entitic mass] 32.0 pg Normal 27.0-33.0 The [facility] Comment on above: Order Comment: No: D o not add to previous draw Performed By: #### 5 6101 #### [facility] [address] [place] [address], [facility] MCHC (RBC) [Mass/Vol] 32.3 g/dL Normal 32.0-35.0 The [facility] Comment on above: Order Comment: No: D o not add to previous draw Performed By: #### 5 6101 #### [facility] [address] [facility] [place] [place] [address], [facility] MCV (RBC) [Entitic vol] 99.0 fL High 82.0-98.0 The [facility] Comment on above: Order Comment: No: D o not add to previous draw Performed By: #### 5 6101 #### [facility] [address] [place] [address], [facility] Monocytes (Bld) [#/Vol] 0.7 10*3/uL Normal 0.1-1.0 The [facility] Comment on above: Order Comment: No: D o not add to previous draw Performed By: #### 5 6101 #### [facility] [address] [place] [address], [facility] MONOS 7.2 % Normal 5.0-12.0 The [facility] Comment on above: Order Comment: No: D o not add to previous draw Performed By: #### 5 6101 #### [facility] [address] [facility] [address], [facility] Neutrophils/100 WBC (Bld) 79.1 % High 40.0-72.0 The [facility] Comment on above: Order Comment: No: D o not add to previous draw Performed By: #### 5 6101 #### [facility] [address] [place] [address], [place] Nucleated RBC/100 WBC (Bld) [Ratio] 0 % Normal 0-0 The [facility] Comment on above: Order Comment: No: D o not add to previous draw Performed By: #### 5 6101 #### [facility] [address] [place] [address], [place] PLAT CNT 264 10*3/uL Normal 150-400 The [facility] Comment on above: Order Comment: No: D o not add to previous draw Performed By: #### 5 6101 #### [facility] [address] [place] [address], [place] RBC (Bld) [#/Vol] 2.97 10*6/uL Low 3.80-5.00 The [facility] Comment on above: Order Comment: No: D o not add to previous draw Performed By: #### 5 6101 #### [facility] [address] [place] [address], [place] WBC (Bld) [#/Vol] 10.07 10*3/uL Normal 4.00-10.60 The [facility] Comment on above: Order Comment: No: D o not add to previous draw Performed By: #### 5 6101 #### [facility] [address] [place] [address], [place] POC GLUCOSE LABon 08-02-2019 Glucose [Mass/Vol] 95 mg/dL Normal 70-100 The [facility] Comment on above: Performed By: #### 5 6101 #### [facility] [address] [place] [address], [place] PORTABLE SHOULDER RIGHT 2 VW Son 08-02-2019 PORTABLE SHOULDER RIGHT 2 S [facility] Department of Radiology [address] [place] [address] ======== Patient Name: MARYAM SOLOMON : 1955 Sex: F Age: Race: White Pt. Location: [id number] Patient Status: I Ordered Date: 08/02/2019 5:55:00 PM Completed Date: 08/02/2019 06:34 PM Requesting Provider: TIRSO GONZALES Attending Provider: KRISHNA SOFIA Report Copy To: Signs & Symptoms: Pain ( specify Location) History: See Comments Comments: Hardware Evaluation Exam: PORTABLE SHOULDER RIGHT 2 [facility] ======== PORTABLE SHOULDER RIGHT 2 S 08/02/2019 6:34 PM EDT SIGNS AND SYMPTOMS: [...] findings. Electronically signed by:Gayle Rowe. Transcribed by: [email or web address], User Resident: VILMA AMAYA Electronically Signed by: GAYLE ROWE @ 08/02/2019 07:31 PM I personally read this/these film(s) with this resident Normal The [facility] Comment on above: Order Comment: No: D o not add to previous draw CT 3D UPPER EXTREMITY WO CON TRAST RIGHTon 07-10-2019 CT 3D UPPER EXTREMITY WO CONTRAST RIGHT [facility] of Radiology [address] [place] [id number] ======== Patient Name: MARYAM SOLOMON : 1955 Sex: F Age: Race: White Pt. Location: Patient Status: D Ordered Date: 07/02/2019 3:40:00 PM Completed Date: 07/10/2019 04:05 PM Requesting Provider: KRISHNA SOFIA Attending Provider: KRISHNA SOFIA Report Copy To: LALA WATSON Signs & Symptoms: M25.811 Other specified joint disorders, right shoulder I10 History: Marie, no pc per todd @ [facility] cpt code 68707 *mla Comments: right shoulder for surgical planning [...] injury. Electronically signed by:Los Odonnell. Transcribed by: [email or web address], User Resident: Electronically Signed by: LOS ODONNELL @ 07/10/2019 04:22 PM Normal The [facility] Comment on above: Order Comment: No: D o not add to previous draw SHOULDER RIGHTon 07-02-2019 SHOULDER RIGHT [facility] Department of Radiology [address] [place] [id number] ======== Patient Name: MARYAM SOLOMON : 1955 Sex: F Age: Race: White Pt. Location: 84 Patient Status: O Ordered Date: 07/02/2019 3:00:00 PM Completed Date: 07/02/2019 03:10 PM Requesting Provider: KRISHNA SOFIA Attending Provider: KRISHNA SOFIA Report Copy To: Signs & Symptoms: M25.519 Pain in unspecified shoulder I10 History: [place] Comments: , , , Ordering Provider - [...] instability Electronically signed by:Los Odonnell. Transcribed by: [email or web address], User Resident: Electronically Signed by: LOS ODONNELL @ 07/02/2019 03:41 PM Normal The [facility] Comment on above: Order Comment: No: D o not add to previous draw Operative Reporton 9 Operative Report MR#: [id number] [facility] Pt. Name: Maryam Solomon Room #: [id number] [...] P/Krishna Sofia MD Date Trans: 11/29/2018 06:23 A/macho [id number] cc: Lala Watson M.D. [address], [facility] [address] Normal The [facility] POC GLUCOSE LABon 11-27-2018 Glucose [Mass/Vol] 90 mg/dL Normal 70-100 [facility] Comment on above: Performed By: #### 0 0071 #### [facility] [address] *MRSA/MSSA DNA NASALon 11-06 *MRSA/MSSA DNA NASAL Clinical Report: (D ) Specimen: NASAL SWAB Collected: 11/06/2018 13:53 Status: Final Last Updated: 11/06/2018 18:38 MSSA DNA (Final) Negative MRSA DNA (Final) Negative Normal The [facility] Comment on above: Performed By: #### 0 0071 #### [facility] [address] APTTon 11-06-2018 aPTT Coag (Bld) [Time] 33.9 s Normal 25.0-35.0 The [facility] Comment on above: Result Comment: ALL RESULTS [...] PURPOSE. Performed By: #### 0 0071 #### [facility] [address] BASIC METABOLIC PANELon 10-23 Calcium [Mass/Vol] 9.4 mg/dL Normal 8.6-10.3 [facility] Comment on above: Performed By: #### 0 0071 #### [facility] [address] [facility] [place] [address], [facility] Chloride [Moles/Vol] 102 mmol/L Normal 98-107 [facility] Comment on above: Performed By: #### 0 0071 #### [facility] [address] [facility] [address], [facility] CO2 [Moles/Vol] 27 mmol/L Normal 21-31 [facility] Comment on above: Performed By: #### 0 0071 #### [facility] [address] [facility] [place] [address], [facility] Creatinine [Mass/Vol] 0.86 mg/dL Normal 0.60-1.20 The [facility] Comment on above: Performed By: #### 0 0071 #### [facility] [address] [facility] [address], [facility] GFR/1.73 sq M predicted among blacks MDRD (S/P/Bld) [Vol rate/Area] mL/min/{1.73_m2} Normal >60 The [facility] Comment on above: Performed By: #### 0 0071 #### [facility] [address] [facility] [place] [place] [address], [facility] GFR/1.73 sq M predicted among non-blacks MDRD (S/P/Bld) [Vol rate/Area] mL/min/{1.73_m2} Normal >60 [facility] Comment on above: Performed By: #### 0 0071 #### [facility] [address] [facility] [place] [address], [facility] Glucose [Mass/Vol] 91 mg/dL Normal 70-100 The [facility] Comment on above: Performed By: #### 0 0071 #### [facility] [address] [facility]. [address] Potassium [Moles/Vol] 4.1 mmol/L Normal 3.5-5.1 The [facility] Comment on above: Performed By: #### 0 0071 #### [facility] [address] [facility] [place] [address], [facility] Sodium [Moles/Vol] 134 mmol/L Low 136-145 The [facility] Comment on above: Performed By: #### 0 0071 #### [facility] [address] [facility]. [address] Urea nitrogen [Mass/Vol] 17 mg/dL Normal 7-25 The [facility] Comment on above: Performed By: #### 0 0071 #### [facility] [address] [facility]. [address] CBC W/DIFFon 11-06-2018 ABS BASOPHILS 0.1 10*3/uL Normal 0.0-0.2 The [facility] Comment on above: Performed By: #### 0 0071 #### [facility] [address] [place] [address], [facility] ABS IMM GRANS 0.0 10*3/uL Normal 0.0-0.2 The [facility] Comment on above: Performed By: #### 0 0071 #### [facility] [address] [place] [address], [facility] ABS NEUTROPHILS 4.6 10*3/uL Normal 1.6-7.6 The [facility] Comment on above: Performed By: #### 0 0071 #### [facility] [address] [place] [address], [facility] Basophils/100 WBC (Bld) 0.7 % Normal 0.0-1.0 The [facility] Comment on above: Performed By: #### 0 0071 #### [facility] [address] [place] [address], [facility] Eosinophils (Bld) [#/Vol] 0.1 10*3/uL Normal 0.0-0.5 The [facility] Comment on above: Performed By: #### 0 0071 #### [facility] [address] [facility] [address], [facility] Eosinophils/100 WBC (Bld) 1.8 % Normal 0.0-6.0 The [facility] Comment on above: Performed By: #### 0 0071 #### [facility] [address] [facility] [place] [address], [facility] Erythrocyte distribution width (RBC) [Ratio] 11.9 % Normal 11.5-15.0 The [facility] Comment on above: Performed By: #### 0 0071 #### [facility] [address] [facility] [address], [facility] Hematocrit (Bld) [Volume fraction] 38.6 % Normal 36.0-45.0 The [facility] Comment on above: Performed By: #### 0 0071 #### [facility] [address] [facility] [place] [id number], [facility] Hemoglobin (Bld) [Mass/Vol] 12.6 g/dL Normal 12.0-15.0 The [facility] Comment on above: Performed By: #### 0 0071 #### [facility] [address] [place] [address], [facility] IMMATURE GRANS 0.1 % Normal 0.0-1.0 The [facility] Comment on above: Performed By: #### 0 0071 #### [facility] [address] [place] [address], [facility] Lymphocytes (Bld) [#/Vol] 1.9 10*3/uL Normal 1.2-4.0 The [facility] Comment on above: Performed By: #### 0 0071 #### [facility] [address] [facility] [address], [facility] Lymphocytes/100 WBC (Bld) 26.3 % Normal 20.0-45.0 The [facility] Comment on above: Performed By: #### 0 0071 #### [facility] [address] [facility] [place] [address], [facility] MCH (RBC) [Entitic mass] 30.8 pg Normal 27.0-33.0 The [facility] Comment on above: Performed By: #### 0 0071 #### [facility] [address] [facility] [address] MCHC (RBC) [Mass/Vol] 32.6 g/dL Normal 32.0-35.0 The [facility] Comment on above: Performed By: #### 0 0071 #### [facility] [address] [facility] [address], [facility] MCV (RBC) [Entitic vol] 94.4 fL Normal 82.0-98.0 [facility] Comment on above: Performed By: #### 0 0071 #### [facility] [address] [facility] [place] [address], [facility] Monocytes (Bld) [#/Vol] 0.4 10*3/uL Normal 0.1-1.0 The [facility] Comment on above: Performed By: #### 0 0071 #### [facility] [address] [place] [address], [facility] MONOS 5.5 % Normal 5.0-12.0 The [facility] Comment on above: Performed By: #### 0 0071 #### [facility] [address] [place] [address], [facility] Neutrophils/100 WBC (Bld) 65.6 % Normal 40.0-72.0 [facility] Comment on above: Performed By: #### 0 0071 #### [facility] [address] [facility] [place] [place] [address], [facility] Nucleated RBC/100 WBC (Bld) [Ratio] 0 % Normal 0-0 The [facility] Comment on above: Performed By: #### 0 0071 #### [facility] [address] [facility] [place] [address], [facility] PLAT CNT 327 10*3/uL Normal 150-400 The [facility] Comment on above: Performed By: #### 0 0071 #### [facility] [address] [facility] [place] [address], [facility] RBC (Bld) [#/Vol] 4.09 10*6/uL Normal 3.80-5.00 The [facility] Comment on above: Performed By: #### 0 0071 #### [facility] [address] [facility] [place] [address], [facility] WBC (Bld) [#/Vol] 7.03 10*3/uL Normal 4.00-10.60 [facility] Comment on above: Performed By: #### 0 0071 #### [facility] [address] PROTHROMBIN TIMEon 9 INR Coag (PPP) [Relative time] 0.93 {INR} Normal 0.91-1.16 [facility] Comment on above: Result Comment: ACCC P [...] 1995;108:231S-246S. Performed By: #### 0 0071 #### [address] PT Coag (PPP) [Time] 12.5 s Normal 12.3-14.8 [facility] Comment on above: Result Comment: ALL RESULTS MUST BE INTERPRETED WITH RESPECT TO BLOOD DRAWING ARTIFACT OR DILUTION ERROR OF ANTICOAGULANT AT THE TIME OF SAMPLING. Performed By: #### 0 0071 #### [address] MRI SHOULDER WO CONTRAST RIG HTon 10-29-2018 MRI SHOULDER WO CONTRAST RIGHT [facility] Department of Radiology [address] [place] [id number] ======== Patient Name: MARYAM SOLOMON : 1955 Sex: F Age: Race: White Pt. Location: Patient Status: D Ordered Date: 10/17/2018 3:15:00 PM Completed Date: 10/29/2018 04:20 PM Requesting Provider: KRISHNA SOFIA Attending Provider: KRISHNA SOFIA Report Copy To: LALA WATSON Signs & Symptoms: M75.121 Complete rotatr-cuff tear/ruptr of r shoulder, not trauma I10 History: Marie no pc per todd [employer] [facility] cpt code 75941 call ref# [id number] *mla Comments: , , , Ordering Provider [...] bursitis. Electronically signed by:Los Odonnell. Transcribed by: [email or web address], User Resident: Electronically Signed by: LOS ODONNELL @ 10/30/2018 12:47 PM Normal [facility] Comment on above: Order Comment: No: D o not add to previous draw SHOULDER RIGHTon 09-04-2018 SHOULDER RIGHT [facility] Department of Radiology [address] [place] [phone] ======== Patient Name: MARYAM SOLOMON : 1955 Sex: F Age: Race: White Pt. Location: Patient Status: O Ordered Date: 09/04/2018 1:15:00 PM Completed Date: 09/04/2018 01:29 PM Requesting Provider: KRISHNA SOFIA Attending Provider: KRISHNA SOFIA Report Copy To: LALA WATSON Signs & Symptoms: S42.91XD Fx r shoulder girdle, part unsp, subs for fx w routn heal I10 History: Marie Comments: , Views (X-RAY, SHOULDER): AP, Grashey, [...] joint Electronically signed by:Brendan Morin. Transcribed by: [email or web address], User Resident: Electronically Signed by: BRENDAN MORIN @ 09/04/2018 01:55 PM Normal [facility] Comment on above: Order Comment: No: D o not add to previous draw Operative Reporton 8 Operative Report MR#: [id number] I [facility] Pt. Name: Maryam Solomon Room #: [id number] Discharge 08/24/2018 Date: Birthdate: 1955 OPERATIVE REPORT [...] P Krishna Sofia MD Date Dict: 08/25/2018/08:23 Jaquan/Krishna Sofia MD Date Trans: 08/25/2018 09:10 Jaquan/macho [id number] cc: Lala Watson M.D. [facility] [address] [facility] [facility] [address] Adilene Liu M.D. E R Physican...do Not Send [address] [facility] [address] Normal [facility] BASIC METABOLIC PANELon 11-0 Calcium [Mass/Vol] 8.9 mg/dL Normal 8.6-10.3 [facility] Comment on above: Order Comment: No: D o not add to previous draw Performed By: #### 0 0071 #### [facility] [address] [place] [address], [place] Chloride [Moles/Vol] 102 mmol/L Normal 98-107 [facility] Comment on above: Order Comment: No: D o not add to previous draw Performed By: #### 0 0071 #### [facility] [address] [place] [address], [place] CO2 [Moles/Vol] 24 mmol/L Normal 21-31 The [facility] Comment on above: Order Comment: No: D o not add to previous draw Performed By: #### 0 0071 #### [facility] [address] [place] [address], [place] Creatinine [Mass/Vol] 0.84 mg/dL Normal 0.60-1.20 [facility] Comment on above: Order Comment: No: D o not add to previous draw Performed By: #### 0 0071 #### [facility] [address] [place] [address], [place] GFR/1.73 sq M predicted among blacks MDRD (S/P/Bld) [Vol rate/Area] mL/min/{1.73_m2} Normal >60 [facility] Comment on above: Order Comment: No: D o not add to previous draw Performed By: #### 0 0071 #### [facility] [address] [place] [address], [place] GFR/1.73 sq M predicted among non-blacks MDRD (S/P/Bld) [Vol rate/Area] mL/min/{1.73_m2} Normal >60 [facility] Comment on above: Order Comment: No: D o not add to previous draw Performed By: #### 0 0071 #### [facility] [address] [place] [address], [place] Glucose [Mass/Vol] 182 mg/dL High 70-100 The [facility] Comment on above: Order Comment: No: D o not add to previous draw Performed By: #### 0 0071 #### [facility] [address] [place] [address], [place] Potassium [Moles/Vol] 4.1 mmol/L Normal 3.5-5.1 [facility] Comment on above: Order Comment: No: D o not add to previous draw Performed By: #### 0 0071 #### [facility] [address] [place] [address], [place] Sodium [Moles/Vol] 135 mmol/L Low 136-145 [facility] Comment on above: Order Comment: No: D o not add to previous draw Performed By: #### 0 0071 #### [facility] [address] [place] [address], [place] Urea nitrogen [Mass/Vol] 12 mg/dL Normal 7-25 [facility] Comment on above: Order Comment: No: D o not add to previous draw Performed By: #### 0 0071 #### [facility] [address] CBC COMPLETE BLOOD COUNTon 10-23-2017 Erythrocyte distribution width (RBC) [Ratio] 12.3 % Normal 11.5-15.0 [facility] Comment on above: Order Comment: No: D o not add to previous draw Performed By: #### 5 0608 #### [facility] [address] [place] [address], [facility] Hematocrit (Bld) [Volume fraction] 34.9 % Low 36.0-45.0 [facility] Comment on above: Order Comment: No: D o not add to previous draw Performed By: #### 5 0608 #### [facility] [address] [place] [address], [facility] Hemoglobin (Bld) [Mass/Vol] 11.7 g/dL Low 12.0-15.0 [facility] Comment on above: Order Comment: No: D o not add to previous draw Performed By: #### 5 0608 #### [facility] [address] [place] [address], [facility] MCH (RBC) [Entitic mass] 31.7 pg Normal 27.0-33.0 [facility] Comment on above: Order Comment: No: D o not add to previous draw Performed By: #### 5 0608 #### [facility] [address] [place] [id number], [facility] MCHC (RBC) [Mass/Vol] 33.5 g/dL Normal 32.0-35.0 [facility] Comment on above: Order Comment: No: D o not add to previous draw Performed By: #### 5 0608 #### [facility] [address] [place] [id number], [facility] MCV (RBC) [Entitic vol] 94.6 fL Normal 82.0-98.0 [facility] Comment on above: Order Comment: No: D o not add to previous draw Performed By: #### 5 0608 #### [facility] [address] [place] [address], [facility] Nucleated RBC/100 WBC (Bld) [Ratio] 0 % Normal 0-0 [facility] Comment on above: Order Comment: No: D o not add to previous draw Performed By: #### 5 0608 #### [facility] [address] [facility] [place] [address], [facility] PLAT CNT 322 10*3/uL Normal 150-400 [facility] Comment on above: Order Comment: No: D o not add to previous draw Performed By: #### 5 0608 #### [facility] [address] [place] [address], [facility] RBC (Bld) [#/Vol] 3.69 10*6/uL Low 3.80-5.00 [facility] Comment on above: Order Comment: No: D o not add to previous draw Performed By: #### 5 0608 #### [address] [address], [facility] WBC (Bld) [#/Vol] 16.41 10*3/uL High 4.00-10.60 [facility] Comment on above: Order Comment: No: D o not add to previous draw Performed By: #### 5 0608 #### [address] [address], [facility] CT UPPER EXTREMITY WO CONTRA ST RIGHTon 08-23-2018 CT UPPER EXTREMITY WO CONTRAST RIGHT [facility] Department of Radiology [address] [place] [phone] ======== Patient Name: MARYAM SOLOMON : 1955 Sex: F Age: Race: White Pt. Location: [id number] Patient Status: I Ordered Date: 08/23/2018 8:45:00 [...] fracture Electronically signed by:Los Odonnell. Transcribed by: [email or web address], User Resident: Electronically Signed by: LOS ODONNELL @ 08/23/2018 01:20 PM Marissa [facility] Comment on above: Order Comment: R/O F ractures, Right shoulder CT scan to evaluate fx pattern Consultationon 08-23-2018 Consultation MR#: [id number] [facility] Pt. Name: Maryam Solomon Date of Service: 08/23/2018 Room #: [id number] Birthdate: 1955 Referring Physician: CONSULTATION HISTORY OF [...] to 0.5% for any cardiac or non-fatal [place] and I feel very comfortable to just proceed with the EKG and no further cardiac workup. 2. Leukocytosis. Most likely related to her recent injury and body reaction and I do not see any evidence of infection and the patient is afebrile. Electronically Signed by: Perry Mchugh MD 09/03/2018 06:09 P Perry Mchugh MD Date Dict: 08/23/2018/09:47 A/Perry Mchugh MD Date Trans: 08/23/2018 09:21 P/mmo [id number] cc: Lala Watson M.D. [address] [address] Adilene Liu M.D. E R Physican...do Not Send [address] [place] [phone] Normal The [facility] PORTABLE SHOULDER RIGHT 2 VW Son 08-23-2018 PORTABLE SHOULDER RIGHT 2 S [facility] Department of Radiology [address] [place] [phone] ======== Patient Name: MARYAM SOLOMON : 1955 Sex: F Age: Race: White Pt. Location: [facility] Patient Status: I Ordered Date: 08/23/2018 1:40:00 AM Completed Date: 08/23/2018 07:48 AM Requesting Provider: OCTAVIO SHARMA Attending Provider: OCTAVIO SHARMA Report Copy To: Signs & Symptoms: Post Reduction History: Patient history not available Comments: R/O Dislocation, 3 views; Grashey, scapular Y, and axillary (or velpeau if cannot obtain satisfactory axillary) Exam: PORTABLE SHOULDER RIGHT 2 VWS ======== PORTABLE SHOULDER RIGHT 2 S 08/23/2018 7:48 AM EDT SIGNS AND SYMPTOMS: [...] Bankart Electronically signed by:Los Odonnell. Transcribed by: [email or web address], User Resident: Electronically Signed by: LOS ODONNELL @ 08/23/2018 09:02 AM Normal [facility] Comment on above: Order Comment: R/O D islocation, 3 views; Grashey, scapular Y, and axillary (or velpeau if cannot obtain satisfactory axillary) PROTHROMBIN TIMEon 8 INR Coag (PPP) [Relative time] 0.97 {INR} Normal 0.91-1.16 [facility] Comment on above: Order Comment: No: D o not add to previous draw Result Comment: [facility] P RECOMMENDED INR FOR WARFARIN THERAPY ------- [...] 1995;108:231S-246S. Performed By: #### 5 6101 #### [address] PT Coag (PPP) [Time] 12.9 s Normal 12.3-14.8 [facility] Comment on above: Order Comment: No: D o not add to previous draw Result Comment: ALL RESULTS MUST BE INTERPRETED WITH RESPECT TO BLOOD DRAWING ARTIFACT OR DILUTION ERROR OF ANTICOAGULANT AT THE TIME OF SAMPLING. Performed By: #### 5 6101 #### [address] SHOULDER RIGHTon 08-23-2018 SHOULDER RIGHT [facility] Department of Radiology [address] [place] [phone] ======== Patient Name: MARYAM SOOLMON : 1955 Sex: F Age: Race: White Pt. Location: [id number] Patient Status: I Ordered Date: 08/23/2018 2:10:00 [...] findings. Electronically signed by:Gayle Rowe. Transcribed by: [email or web address], User Resident: DAMIÁN DACOSTA Electronically Signed by: GAYLE ROWE @ 08/24/2018 05:40 PM I personally read this/these film(s) with this resident Normal [facility] Comment on above: Order Comment: RIGHT SHOULDER CLOSED VS. OPEN REDUCTION TYPE AND SCREENon 08-23-2018 ABO INTERPRETATION O Normal [facility] Comment on above: Performed By: #### 6 2586 #### [facility] [address] [place] [address], [facility] RH INTERPRETATION Positive Normal [facility] Comment on above: Performed By: #### 6 2586 #### [facility] [address] [place] [address], [facility] Social History Date Type Detail Facility Start: 04-20-2020 End: 09-05-2023 Tobacco smoking status NHIS Never smoker [place], [place] Start: 04-20-2020 End: 08-22-2022 Alcohol intake Current drinker of alcohol (finding) [place], [place] Start: 04-20-2020 Tobacco use and exposure Smokeless tobacco non-user CYNTHIA [facility] [employer] Phone: Start: 1955 Sex Assigned At Not on file M [place], [place] Exposure to SARS-CoV -2 (event) Unable to assess [place], [place] Tobacco smoking status Never [facility] [place] Sex Assigned At Female [facility] Vital Signs Date Time Vital Sign Value Performing Clinician Mari hewitt 09-05-2023 15:01-0500 Blood Pressure Location [facility] 09-05-2023 15:01-0500 Diastolic blood pressure 94 mm[Hg] [facility] 09-05-2023 15:01-0500 Heart rate 70 /min [facility] 09-05-2023 15:01-0500 Respiratory rate 16 /min [facility] 09-05-2023 15:01-0500 Systolic blood pressure 152 mm[Hg] [facility] Functional Status Date Assessment Result Facility 09-05-2023 Functional Status N/A General El[facility] Clinical Note 09-05-2023 Note Date & Type [...] Tobacco Use:. Never (more content not included)... [facility] Comment on above: Result Comment: Elec tronically [...] authenticated by: COLLETTE CUMMINGS Date: 2022-05-02 20:56 [facility] Evaluation + Plan note Note Date & Type Note Facility Evaluation + Plan note No data available for this section [facility] [place] Evaluation note Note Date & Type Note Facility Evaluation note Diagnosis Women's annual routine gynecological examination documented in this encounter [facility] Work Phone: Hospital Discharge instructions Note Date & Type Note Facility Hospital Discharge instructions No data available for this section [facility] [place] Progress note Note Date & Type Note Facility Progress note No data available for this section [facility] [place] Summary Purpose Family History No Family History Records FoundNo Family History Records FoundNo Family History Records Found No data available for this section No data available for this section No Family History Records Found Advance Directives No Advanced Directives Records FoundDocuments on File Type Date Recorded 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 Name: Maryam Solomon Admitted: 08/23/2018 Discharged: [...] (more content not included)... Note MR#: [id number] [facility] Pt. Name: Maryam Solomon Admitted: 08/02/2019 Discharged: 08/03/2019 Date of : 1955 Physician: Krishna Sofia MD DISCHARGE SUMMARY PRINCIPAL DIAGNOSIS: Right shoulder degenerative joint disease. PROCEDURES PERFORMED: Right reverse total shoulder replacement with open biceps tenodesis. COMPLICATIONS: None. CONSULTS: Physical and Occupational Therapy. HOSPITAL COURSE: The patient is a 63-year-old female who presented to [facility] as outpatient with chief complaint of right [...] section and content) DATE CREATED AUTHOR 08/20/2019 [facility] DATE CREATED AUTHOR AUTHOR'S ORGANIZ ATION 08/27/2022 [facility]ital DATE CREATED AUTHOR AUTHOR'S ORGANIZ ATION 09/28/2022 [facility] pital DATE CREATED AUTHOR AUTHOR'S ORGANIZ ATION 10/19/2023 [facility] Care Teams (unrecognized sec tion and content) Respite Coordinator Relationship Specialty Start Date End Date Lala Watson MD [address] [place] [address] PCP - General Family Medicine 05/17/16 FOR [...] BE BASED ON THE PRIMARY CLINICAL RECORDS. [facility] [employer] [facility]. provides no warranty or guarantee of the accuracy or completeness of information in this document.
== END 2024-04-19 09:23 | disposition home or self-care (01) ==
LOC: RAD 09:22
PROVIDERS: PCP Family Medicine; Visit Provider Family Medicine
DX: E28.39 Other primary ovarian failure (principal)
CPT/HCPCS: 77080

== ENCOUNTER 2024-05-30 10:22 | Outpatient (OUT) | payer MEDICARE, SELFPAY ==
--- OUTSIDE RECORDS SUMMARY | 2024-05-30 10:25 | XMS_ITS | CCD ---
Author Organization [facility] [place] CliniSymn Care Team Providers Care Social Media Executive Name Role Phone ELATTAR, OSAMA Admitting Unavailable ELATTAR, OSAMA Attending Unavailable LALA WATSON Primary Care Unavailable SELF, REFERRED Referring Unavailable MO Procedure Practitioner Unavailab le KIMBERLYN, OSAMA Surgeon Unavailable MO Procedure Practitioner Unavailab AYANNA Back Surgeon Unavailable ADILENE LIU Referring Unavailable LALA WATSON Primary Care Unavailable ELATTARSTONEMA Attending Unavailable ELATTAR, OSAMA Admitting Unavailable MO Procedure Practitioner Unavailab le ELATTAR, OSAMA Surgeon Unavailable ELATTAR, OSAMA Admitting Unavailable KIMBERLYN, STONEMA Attending Unavailable LALA WATSON Referring Unavailable LALA WATSON Primary Care Unavailable MO Procedure Practitioner Unavailab thelma SOFIA, KRISHNA Surgeon Unavailable Lala Watson Primary Care Provider Lala Watson MD Primary Care Provider [phone] LALA WATSON Attending Unavailable SACHA, DR REEVES Primary Care Unavailable SACHA, DR REEVES Admitting Unavailable SACHA, DR REEVES Primary Care Unavailable SEA, DR JANUSZ Hernandez Attending Unavailable SEA, DR JANUSZ Hernandez Admitting Unavailable ZIEBJOYCE, DR MATTHEW Huffman Consulting Unavailable SEA, DR JANUSZ Hernandez Consulting Unavailable DR LALA WATSON Admitting Unavailable SACHA, DR REEVES Attending Unavailable SACHA, DR REEVES Consulting Unavailable SACHA, DR REEVES Primary Care Unavailable EMILIANO, DR COLLETTE Romero Consulting Unavailable Lala Watson Primary Care Physician Eron MULLER Attending Unavailable NILLEron Attending Unavailable Lala Watson Referring Unavailable Eron MULLER Attending Unavailable Eron MULLER Attending Unavailable JANUSZ FLORES Attending Unavailable JANUSZ FLORES Referring Unavailable LALA WATSON Primary Care Unavailable JANUSZ FLORES Referring Unavailable LALA WATSON Primary Care Unavailable JANUSZ FLORES Attending Unavailable JANUSZ FLORES Referring Unavailable LALA WATSON Primary Care Unavailable Medications Current Medications Medication Drug Class(es) [...] once daily Cholecalciferol (VITAMIN D3) 50 MCG (1999) CAPS TAKE 1 CAPSULE BY MOUTH EVERY [...] hernia (2 sources) Hiatal hernia 03-17-2021 Episodic Abdominal pain (2 sources) Right lower quadrant pain; Translations: [Left lower quadrant pain] Onset: 05-23-2024 Episodic Allergic reactions (2 sources) Pressure urticaria [...] Test Name Value Interpretation Reference Range Facility CT ABDOMEN PELVIS W IV CONTR Zeyad 05-24-2024 CT ABDOMEN PELVIS W IV CONTRAST EXAMINATION: CT OF THE ABDOMEN AND PELVIS WITH CONTRAST 05/23/2024 11:01 am TECHNIQUE: CT of the abdomen and pelvis was performed with the administration of intravenous contrast. Multiplanar reformatted images are provided for review. Automated exposure control, iterative reconstruction, and/or weight based adjustment of the mA/kV was utilized to reduce the radiation dose to as low as reasonably achievable. COMPARISON: None. HISTORY: ORDERING SYSTEM PROVIDED HISTORY: Bilateral lower abdominal pain TECHNOLOGIST PROVIDED HISTORY: STAT Creatinine as needed:->Yes This patient has had 6 weeks of sharp bilateral lower abdominal pain FINDINGS: CARDIOVASCULAR: The visualized heart and pericardium demonstrate no acute abnormality. The aorta and branch vessels are patent and normal in caliber. LUNG BASES: There are no focal consolidations or pleural effusions. HEPATOBILIARY: Tiny hypodensities noted in the right hepatic lobe, which are too small to characterize.. There is no biliary ductal dilatation. The gallbladder is unremarkable. SPLEEN: Unremarkable. PANCREAS: Unremarkable ADRENAL GLANDS: Unremarkable. KIDNEYS: Kidneys are normal in size and contour and demonstrate symmetric enhancement. There is no hydronephrosis. ABDOMINAL NODES: No adenopathy is appreciated. PELVIC ORGANS: The urinary bladder is unremarkable. The uterus is surgically absent. PERITONEUM/MESENTERY/B OWEL: The stomach is unremarkable. There is no bowel obstruction. There is no bowel wall thickening. There is diverticulosis without evidence of diverticulitis. BONES/SOFT TISSUES: There is no acute osseous or soft tissue abnormality. IMPRESSION: 1. No acute intra-abdominal or pelvic process. 2. Diverticulosis without evidence of diverticulitis. Interpreted by: Ryan Hoyt MD Signed by: Ryan Hoyt MD 05/24/24 Final result [facility] CBC with Diffon 05-23-2024 Abs. Basophil 0.05 k/uL Normal 0.00-0.20 [facility] Comment on above: Performed By: #### C P, CDP #### [facility] [address] [place] [address] Route Cdl Driver: Collette Zhang MD Abs.Imm.Granulocyte 0.03 k/uL Normal 0.00-0.30 [facility] Comment on above: Performed By: #### C P, CDP #### [facility] [address] [place] [address] Dr. [place], [facility] Route Cdl Driver: Collette Zhang MD Abs.Neutrophil (Seg) 6.29 k/uL Normal 1.50-8.10 [facility] Comment on above: Performed By: #### C P, CDP #### [address] [place], [facility] Route Cdl Driver: Collette Zhang MD Basophils/100 WBC (Bld) 1 % Normal 0-2 [facility] Comment on above: Performed By: #### C P, CDP #### [address] [place], [facility] Route Cdl Driver: Collette Zhang MD Eosinophils (Bld) [#/Vol] 0.11 10*3/uL Normal 0.00-0.44 [facility] Comment on above: Performed By: #### C P, CDP #### [address] [place], [facility]83 Route Cdl Driver: Collette Zhang MD Eosinophils/100 WBC (Bld) 1 % Normal 1-4 [facility] Comment on above: Performed By: #### C P, CDP #### [address] [place], [facility]83 Route Cdl Driver: Collette Zhang MD Erythrocyte distribution width (RBC) [Ratio] 12.3 % Normal 11.8-14.4 [facility] Comment on above: Performed By: #### C P, CDP #### [address] [place] [address] Route Cdl Driver: Collette Zhang MD Hematocrit (Bld) [Volume fraction] 36.4 % Normal 36.3-47.1 [facility] Comment on above: Performed By: #### C P, CDP #### [facility] [address] [place], [place] [id number] Route Cdl Driver: Collette Zhang MD Hemoglobin (Bld) [Mass/Vol] 11.8 g/dL Low 11.9-15.1 [facility] Comment on above: Performed By: #### C P, CDP #### [facility] [address] [place], [facility] Route Cdl Driver: Collette Zhang MD Immature granulocytes/100 WBC (Bld) 0 % Normal 0 [facility] Comment on above: Performed By: #### C P, CDP #### [address] [place], [facility] Route Cdl Driver: Collette Zhang MD Lymphocytes (Bld) [#/Vol] 2.73 10*3/uL Normal 1.10-3.70 [facility] Comment on above: Performed By: #### C P, CDP #### [address] [place], [facility] Route Cdl Driver: Collette Zhang MD Lymphocytes/100 WBC (Bld) 28 % Normal 24-43 [facility] Comment on above: Performed By: #### C P, CDP #### [address] [place], [facility]83 Route Cdl Driver: Collette Zhang MD MCH (RBC) [Entitic mass] 31.9 pg Normal 25.2-33.5 [facility] Comment on above: Performed By: #### C P, CDP #### [address] [place], [facility]83 Route Cdl Driver: Collette Zhang MD MCHC (RBC) [Mass/Vol] 32.4 g/dL Normal 28.4-34.8 [facility] Comment on above: Performed By: #### C P, CDP #### [address] [place], [place] [id number] Route Cdl Driver: Collette Zhang MD MCV (RBC) [Entitic vol] 98.4 fL Normal 82.6-102.9 [facility] Comment on above: Performed By: #### C P, CDP #### [address] [place], [place] [address]83 Route Cdl Driver: Collette Zhang MD Monocytes (Bld) [#/Vol] 0.62 10*3/uL Normal 0.10-1.20 [facility] Comment on above: Performed By: #### C P, CDP #### [address] [place], [place] [address]200583 Route Cdl Driver: Collette Zhang MD Monocytes/100 WBC (Bld) 6 % Normal 3-12 [facility] Comment on above: Performed By: #### C P, CDP #### [address] [place], [place] [address]96[address]83 Route Cdl Driver: Collette Zhang MD Neutrophil (Seg) 64 % Normal 36-65 [facility] Comment on above: Performed By: #### C P, CDP #### [address] [place], [place] 0179583 Route Cdl Driver: Collette Zhang MD NRBC Automated 0.0 per 100 WBC Normal 0.0 [facility] Comment on above: Performed By: #### C P, CDP #### [address] [place], [place] [id number] Route Cdl Driver: Collette Zhang MD Platelet mean volume (Bld) [Entitic vol] 8.2 fL Normal 8.1-13.5 [facility] Comment on above: Performed By: #### C P, CDP #### [address] [place], [place] 9108383 Route Cdl Driver: Collette Zhang MD Platelets (Bld) [#/Vol] 323 10*3/uL Normal 138-453 [facility] Comment on above: Performed By: #### C P, CDP #### [facility] [address] [place], [place] [id number] Route Cdl Driver: Collette Zhang MD RBC (Bld) [#/Vol] 3.70 10*6/uL Low 3.95-5.11 [facility] Comment on above: Performed By: #### C P, CDP #### [facility] [address] [place] [address] Route Cdl Driver: Collette Zhang MD WBC (Bld) [#/Vol] 9.8 10*3/uL Normal 3.5-11.3 [facility] Comment on above: Performed By: #### C P, CDP #### [address] [place] [address] Route Cdl Driver: Collette Zhang MD Comp Metabolic Profon 2023 Albumin [Mass/Vol] 4.4 g/dL Normal 3.5-5.2 [facility] Comment on above: Performed By: #### C P, CDP #### [address] [place], [place] [address]57[address]83 Route Cdl Driver: Collette Zhang MD Albumin/Glob Ratio 1.6 Normal 1.0-2.5 [facility] Comment on above: Performed By: #### C P, CDP #### [facility] [address] [place] [address] Route Cdl Driver: Collette Zhang MD Alkaline Phos 95 U/L Normal 35-104 [facility] Comment on above: Performed By: #### C P, CDP #### [facility] [address] [place] [address] Route Cdl Driver: Collette Zhang MD ALT [Catalytic activity/Vol] 17 U/L Normal 5-33 [facility] Comment on above: Performed By: #### C P, CDP #### [facility] [address] [place], [place] [address]83 Route Cdl Driver: Collette Zhang MD Anion gap [Moles/Vol] 10 mmol/L Normal 9-17 [facility] Comment on above: Performed By: #### C P, CDP #### [facility] [address] [place], [place] 347[address]83 Route Cdl Driver: Collette Zhang MD AST [Catalytic activity/Vol] 18 U/L Normal <32 [facility] Comment on above: Performed By: #### C P, CDP #### [facility] [address] [place], [place] [address]83 Route Cdl Driver: Collette Zhang MD Bilirubin [Mass/Vol] 0.5 mg/dL Normal 0.3-1.2 [facility] Comment on above: Performed By: #### C P, CDP #### [facility] [address] [place], [place] [address]66283 Route Cdl Driver: Collette Zhang MD BUN/CRE Ratio 18 Normal 9-20 [facility] Comment on above: Performed By: #### C P, CDP #### [facility] [address] [place], [place] [address]168183 Route Cdl Driver: Collette Zhang MD Calcium [Mass/Vol] 9.5 mg/dL Normal 8.6-10.4 [facility] Comment on above: Performed By: #### C P, CDP #### [facility] [address] [place], [place] [address]283 Route Cdl Driver: Collette Zhang MD Chloride [Moles/Vol] 97 mmol/L Low 98-107 [facility] Comment on above: Performed By: #### C P, CDP #### [facility] [address] [place], [place] [address]130[address] Route Cdl Driver: Collette Zhang MD CO2 [Moles/Vol] 28 mmol/L Normal 20-31 [facility] Comment on above: Performed By: #### C P, CDP #### [facility] [address] [place] [address] Route Cdl Driver: Collette Zhang MD Creatinine [Mass/Vol] 0.9 mg/dL Normal 0.5-0.9 [facility] Comment on above: Performed By: #### C P, CDP #### [facility] [address] [place] [address] Route Cdl Driver: Collette Zhang MD GFR/1.73 sq M.predicted among non-blacks MDRD (S/P/Bld) [Vol rate/Area] 70 mL/min/{1.73_m2} Normal >60 [facility] Comment on above: Result Comment: These results are not intended for use in patients <18 years of age. eGFR results are calculated without a race factor using the 2020 CKD-EPI equation. Careful clinical correlation is recommended, particularly when comparing to results calculated using previous equations. The CKD-EPI equation is less accurate in patients with extremes of muscle mass, extra-renal metabolism of creatine, excessive creatine ingestion, or following therapy that affects renal tubular secretion. Performed By: #### C P, CDP #### [facility] [address] [place] [address] Route Cdl Driver: Collette Zhang MD Glucose [Mass/Vol] 105 mg/dL High 70-99 [facility] Comment on above: Performed By: #### C P, CDP #### [facility] [address] [place] [address] Route Cdl Driver: Collette Zhang MD Potassium [Moles/Vol] 4.8 mmol/L Normal 3.7-5.3 [facility] Comment on above: Performed By: #### C P, CDP #### [facility] [address] [place] [address] Route Cdl Driver: Collette Zhang MD Protein [Mass/Vol] 7.2 g/dL Normal 6.4-8.3 [facility] Comment on above: Performed By: #### C P, CDP #### [facility] [address] [place], [place] [address]298583 Route Cdl Driver: Collette Zhang MD Sodium [Moles/Vol] 135 mmol/L Normal 135-144 [facility] Comment on above: Performed By: #### C P, CDP #### [facility] [address] [place], [place] 9994383 Route Cdl Driver: Collette Zhang MD Urea nitrogen [Mass/Vol] 16 mg/dL Normal 8-23 [facility] Comment on above: Performed By: #### C P, CDP #### [facility] [address] [place], [place] [address]757483 Route Cdl Driver: Collette Zhang MD UA w/Reflex Cultureon 2023 Bilirubin, SemiQt,Ur Negative Normal NEG [facility] Comment on above: Performed By: #### U MICAO, UAX #### [address] [place], [facility]83 Route Cdl Driver: Collette Zhang MD Blood, Urine Negative Normal NEG [facility] Comment on above: Performed By: #### U MICAO, UAX #### [facility] [address] [place] [address] Dr. [place], [facility] Route Cdl Driver: Collette Zhang MD Clarity (U) Clear Normal CLEAR [facility] Comment on above: Performed By: #### U MICAO, UAX #### [facility] [address] [place] [address] Route Cdl Driver: Collette Zhang MD Color (U) Yellow Normal YEL [facility] Comment on above: Performed By: #### U MICAO, UAX #### [facility] [address] [place], [facility]83 Route Cdl Driver: Collette Zhang MD Glucose Ql (U) Negative Normal NEG [facility] Comment on above: Performed By: #### U MICAO, UAX #### [facility] [address] [place], [place] [id number] Route Cdl Driver: Collette Zhang MD Ketones Ql (U) Negative Normal NEG [facility] Comment on above: Performed By: #### U MICAO, UAX #### [facility] [address] [place], [place] 1189683 Route Cdl Driver: Collette Zhang MD Leukocyte esterase Test strip Ql (U) Negative Normal NEG [facility] Comment on above: Performed By: #### U MICAO, UAX #### [address] [place], [place] [address]09[address]83 Route Cdl Driver: Collette Zhang MD Nitrite,Ur Negative Normal NEG [facility] Comment on above: Performed By: #### U MICAO, UAX #### [facility] [address] [place] [address] Dr. [place], [place] [address]6483 Route Cdl Driver: Collette Zhang MD PH,Ur 6.0 Normal 5.0-9.0 [facility] Comment on above: Performed By: #### U MICAO, UAX #### [address] [place], [place] 369[address] Route Cdl Driver: Collette Zhang MD Protein Ql (U) Negative Normal NEG [facility] Comment on above: Performed By: #### U MICAO, UAX #### [facility] [address] [place], [place] [address]004183 Route Cdl Driver: Collette Zhang MD Spec. [place],Ur 1.010 Normal 1.010-1.020 [facility] Comment on above: Performed By: #### U MICAO, UAX #### [facility] [address] [place] [address] Dr. [place], [place] 5747883 Route Cdl Driver: Collette Zhang MD Urobilinogen,Ur Normal Normal 0.0-1.0 [facility] Comment on above: Performed By: #### U MICAO, UAX #### [facility] [address] [place] [address] Route Cdl Driver: Collette Zhang MD Urinalysis,Microon 4 Bacteria RARE Normal NONE [facility] Comment on above: Performed By: #### U MICAO, UAX #### [facility] [address] [place] [address] Route Cdl Driver: Collette Zhang MD Epithelial cells LM Ql (Urine sed) 0 TO 2 Normal 0-25 [facility] Comment on above: Performed By: #### U MICAO, UAX #### [facility] [address] [place] [address] [place] [address] Route Cdl Driver: Collette Zhang MD Urine RBC's 0 TO 2 Normal 0-2 [facility] Comment on above: Performed By: #### U MICAO, UAX #### [facility] [address] [place] [address] Route Cdl Driver: Collette Zhang MD Urine WBC's 0 TO 2 Normal 0-5 [facility] Comment on above: Performed By: #### U MICAO, UAX #### [facility] [address] [place] [address] Route Cdl Driver: Collette Zhang MD Cytology Reporton 05-14-2024 Cytology report Cyto stain.thin prep Doc (Cvx/Vag) (NOTE) Path Number: [id number] DIAGNOSIS Imaged ThinPrep Pap - Cervical (1 monolayer slide): Specimen Adequacy: Satisfactory for evaluation. -Endocervical/transfor mation zone component is absent. Descriptive Diagnosis: Negative for intraepithelial lesion or malignancy. Comments: Specimen was screened at [facility], [address] [facility] [address] [employer] Screener: PT Electronically Signed Out Barbi Villalba pt/05/20/2024 Source of Specimen: A: Imaged ThinPrep Pap - Cervical (1 monolayer slide) HPV Reflex?............... 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 The Pap smear is a screening test primarily for squamous epithelial lesions, which is subject to both false negative and false positive results. Your patient should be reminded to consult you immediately if she experiences any suspicious signs or symptoms, regardless of her Pap smear result. GYNECOLOGIC CYTOLOGY REPORT Patient Name: MARYAM SOLOMON. [facility] Rec: [id number] [facility] ANATOMIC PATHOLOGY [address] [place] [address]. [place], [place] [address] Normal [facility] Ambulatory Visit Summaryon 1 12-11-2022 Ambulatory Visit Summary NEHAMARYAM :1955 Visit Date:10/10/2023 Ambulatory Visit Instructions Your Care Team Attending Physician - Eron MULLER MD Primary Care Physician - Lala Watson MD [...] choosing us for your care. [facility] General Surgery Office/Clini c Noteon 10-10-2023 General [...] virus vaccine, inactivated 09/21/2022 Recorded SARS-CoV-2 (COVID-19) [id number] 09/21/2022 Recorded SARSCoV2 mRNA(aujqebdws-lsie-fl cros) vac 03/23/2022 Recorded SARS-CoV-2 (COVID-19) mRNA BNT-162b2 vax 08/09/2021 Recorded 2023-08-31: [id number] SARS-CoV-2 (COVID-19) mRNA BNT-162b2 vax 01/12/2021 Recorded SARS-CoV-2 (COVID-19) mRNA BNT-162b2 vax 12/21/2020 Recorded Normal [facility] Comment on above: Result Comment: Elec tronically Signed By: YOHANA NARAYAN, Eron Starks\Date and Time Signed: 10/10/23 14:58 EST Reminderson 10-10-2023 Reminders - From: Brigette Arce LPN To: N - Clinical; Sent: 10/10/2023 14:44:13 EST Show up: 08/28/2033 07:00:00 EST Subject: colonoscopy recall Due Date/Time: 09/27/2033 07:00:00 EST Reminder/Recall Patient due for screening colonoscopy 09/27/2033. Normal [facility] Pathology Noteon 12-13-2023 Pathology Note [id number]#1. 00TIFF [facility] Outside Colonoscopyon 2022 Outside Colonoscopy [id number] 20 [id number]#1.0 0TIFF [facility] Consent for Procedure/Surger yon 09-06-2023 Consent for Procedure/Surgery [id number]#1. 00TIFF [facility] Facesheeton 09-06-2023 Facesheet [id number]#1. 00TIFF [facility] Ambulatory Visit Summaryon 11-05-2022 Ambulatory Visit Summary [...] you for choosing us for your care. [facility] Lab Reportson 08-31-2023 Lab Reports [id number]#1.0 0TIFF [facility] Consultation Noteon 08-28-20 23 Consultation Note [id number]#1.0 0TIFF [facility] Physician Referralon 023 Physician Referral [id number]#1.0 0CD:127 [facility] MG MAMM SCREEN 3D SERINA CADon 09-21-2022 MG MAMM SCREEN 3D SERINA CAD Patient: MARYAM SOLOMON Exam Date: 09/21/2022 : 1955 Gender:F Ordering : DR JANUSZ FLORES Admission #: [id number] Family : Order #: [id number] CLICK HERE TO VIEW EXAM RADIOLOGY REPORT [...] lung cancer at age 62. LOCATION: [facility] BREAST COMPOSITION: Almost entirely fatty. FINDINGS: DIAGNOSTIC [...] Reynoso M.D. on 09/21/2022 at 15:46 Normal [facility] CBC AUTO DIFFon 05-02-2022 BASO # 0.1 103/ul Normal 0.0-0.1 [facility] Comment on above: Performed By: #### C BC #### [facility] [address] [address] [address] Sona Cortez Basophils/100 WBC (Bld) 0.7 % Normal 0.2-2.0 [facility] Comment on above: Performed By: #### C BC #### [facility] [address] [address] [address] Sona Cortez EO # 0.2 103/ul Normal 0.0-0.7 [facility] Comment on above: Performed By: #### C BC #### [facility] [address] [place] [address] Dr. Sona Cortez Eosinophils/100 WBC (Bld) 2.1 % Normal 0.9-7.0 [facility] Comment on above: Performed By: #### C BC #### [facility] [address] [place] [address] Dr. Sona Cortez Erythrocyte distribution width (RBC) [Ratio] 12.1 % Normal 11.0-15.0 [facility] Comment on above: Performed By: #### C BC #### [facility] [address] [place] [address] Dr. Sona Cortez Hematocrit (Bld) [Volume fraction] 37.6 % Normal 36.0-48.0 [facility] Comment on above: Performed By: #### C BC #### [facility] [address] [place] [address] Dr. Sona Cortez Hemoglobin (Bld) [Mass/Vol] 12.5 g/dL Normal 12.0-16.0 [facility] Comment on above: Performed By: #### C BC #### [facility] [address] [place] [address] Dr. Sona Cortez IG # 0.01 10e3/ul Normal 0.00-0.03 [facility] Comment on above: Performed By: #### C BC #### [facility] [address] [place] [address] Dr. Sona Cortez IG % 0.1 % Normal 0.0-0.5 [facility] Comment on above: Performed By: #### C BC #### [facility] [address] [place] [address] Dr. Sona Cortez LYMPH # 2.0 103/ul Normal 1.2-3.8 [facility] Comment on above: Performed By: #### C BC #### [facility] [address] [place] [address] Dr. Sona Cortez Lymphocytes/100 WBC (Bld) 28.3 % Normal 20.5-60.0 [facility] Comment on above: Performed By: #### C BC #### [facility] [address] [place] [address] Dr. Sona Cortez MANUAL DIFF REQ NO Normal [facility] Comment on above: Performed By: #### C BC #### [facility] [address] [place] [address] Dr. Sona Cortez MCH (RBC) [Entitic mass] 31.9 pg Normal 26.7-34.0 [facility] Comment on above: Performed By: #### C BC #### [facility] [address] [place] [address] Dr. Sona Cortez MCHC (RBC) [Mass/Vol] 33.2 g/dL Normal 29.9-35.2 [facility] Comment on above: Performed By: #### C BC #### [facility] [address] [place] [address] Dr. Sona Cortez MCV (RBC) [Entitic vol] 95.9 fL Normal 81.0-99.0 [facility] Comment on above: Performed By: #### C BC #### [facility] [address] [place] [address] Dr. Sona Cortez MONO # 0.4 103/ul Normal 0.3-0.8 [facility] Comment on above: Performed By: #### C BC #### [facility] [address] [place] [address] Dr. Sona Cortez Monocytes/100 WBC (Bld) 5.7 % Normal 1.7-12.0 [facility] Comment on above: Performed By: #### C BC #### [facility] [address] [place] [address] Dr. Sona Cortez NEUT # 4.4 103/ul Normal 1.4-6.5 [facility] Comment on above: Performed By: #### C BC #### [facility] [address] [place] [address] Dr. Sona Cortez Neutrophils/100 WBC (Bld) 63.1 % Normal 43.0-75.0 [facility] Comment on above: Performed By: #### C BC #### [facility] [address] [address] [address] Sona Cortez Platelet mean volume (Bld) [Entitic vol] 8.5 fL Critically low 9.5-13.5 [facility] Comment on above: Performed By: #### C BC #### [facility] [address] [address] [address] Sona Cortez PLT 313 103/ul Normal 150-450 [facility] Comment on above: Performed By: #### C BC #### [facility] [address] [address] [address] Sona Cortez RBC 3.92 106/ul Critically low 4.20-5.40 [facility] Comment on above: Performed By: #### C BC #### [facility] [address] [address] [address] Sona Cortez WBC 7.0 103/ul Normal 4.0-11.0 [facility] Comment on above: Performed By: #### C BC #### [facility] [address] [address] [address] Sona Cortez FREE THYROXINE INDEX T7on FTI 2.31 Normal 1.30-4.50 [facility] Comment on above: Performed By: #### U ANNABELLE, T7, TSH, CMP, LIPID #### [facility] [address] [address] [address] Sona Cortez T3U 33.0 % Normal 30.0-39.0 [facility] Comment on above: Performed By: #### U ANNABELLE, T7, TSH, CMP, LIPID #### [facility] [address] [address] [address] Sona Cortez T4 [Mass/Vol] 7.00 ug/dL Normal 4.80-13.90 [facility] Comment on above: Performed By: #### U ANNABELLE, T7, TSH, CMP, LIPID #### [facility] [address] [address] [address] Sona Cortez GLYCOHEMOGLOBIN A1Con 2021 ADA RECOMMENDATION SEE BELOW Normal [facility] Comment on above: Result Comment: ADA RECOMMENDED LIMIT 4.0 - 6.0 ADA THERAPEUTIC TARGET < 7.0 ACTION SUGGESTED > 7.0 Performed By: #### A 1C #### [facility] [address] [address] [address] Sona Cortez Glucose [Mass/Vol] 131 mg/dL Normal [facility] Comment on above: Performed By: #### A 1C #### [facility] [address] [address] [address] Sona Cortez HbA1c (Bld) [Mass fraction] 6.2 % Normal 4.5-6.2 [facility] Comment on above: Performed By: #### A 1C #### [facility] [address] [place] [address] Dr. Sona Cortez IRONon 05-02-2022 Iron [Mass/Vol] 98.0 ug/dL Normal 50.0-170.0 [facility] Comment on above: Performed By: #### V ITAD, IRON #### [facility] [address] [place] [address] Dr. Sona Cortez LIPID PROFILEon 05-02-2022 CHOL-HDL RATIO NORM SEE BELOW Normal [facility] Comment on above: Result Comment: 3.3 - 4.4 LOW RISK 4.4 - 7.1 AVERAGE RISK 7.1 - 11.0 MODERATE RISK >11.0 HIGH RISK Performed By: #### V ITAD, IRON #### [facility] [address] [address] [address] Sona Cortez Cholesterol [Mass/Vol] 187 mg/dL Normal <=200 [facility] Comment on above: Performed By: #### V ITAD, IRON #### [facility] [address] [place] [address] Dr. Sona Cortez Cholesterol in HDL [Mass/Vol] 59 mg/dL Normal 40-60 [facility] Comment on above: Performed By: #### V ITAD, IRON #### [facility] [address] [place] [address] Dr. Sona Cortez Cholesterol in LDL [Mass/Vol] 94.8 mg/dL Normal [facility] Comment on above: Performed By: #### V ITAD, IRON #### [facility] [address] [address] [address] Sona Cortez Cholesterol.total/Ch olesterol in HDL [Mass ratio] 3.2 {ratio} Normal [facility] Comment on above: Performed By: #### V ITAD, IRON #### [facility] [address] [address] [address] Sona Cortez HDL NORMAL > or = 60 mg/dl - LO W CARDIOVASCULAR RISK <40 mg/dl - HIGH CARDIOVASCULAR RISK Normal [facility] Comment on above: Performed By: #### V ITAD, IRON #### [facility] [address] [place] [address] Dr. Sona Cortez LDL CALC NORMAL SEE BELOW Normal [facility] Comment on above: Result Comment: <100 mg/dl OPTIMAL 100 - 129 mg/dl NEAR OR ABOVE OPTIMAL 130 - 159 mg/dl BORDERLINE HIGH 160 - 189 mg/dl HIGH >190 mg/dl VERY HIGH Performed By: #### V ITAD, IRON #### [facility] [address] [address] [address] Sona Cortez Triglyceride [Mass/Vol] 166 mg/dL Critically high <=150 [facility] Comment on above: Performed By: #### V ITAD, IRON #### [facility] [address] [address] [address] Sona Cortez VLDL CALC 33.2 mg/dL Normal [facility] Comment on above: Performed By: #### V ITAD, IRON #### [facility] [address] [address] [address] Sona Cortez PROF 14(COMP METB)on 022 Albumin [Mass/Vol] 4.1 g/dL Normal 3.4-5.0 [facility] Comment on above: Performed By: #### U ANNABELLE, T7, TSH, CMP, LIPID #### [facility] [address] [address] [address] Sona Cortez Albumin/Globulin [Mass ratio] 1.2 {ratio} Normal [facility] Comment on above: Performed By: #### U ANNABELLE, T7, TSH, CMP, LIPID #### [facility] [address] [place] [address] Dr. Sona Cortez ALP [Catalytic activity/Vol] 87 U/L Normal 46-116 [facility] Comment on above: Performed By: #### U ANNABELLE, T7, TSH, CMP, LIPID #### [facility] [address] [place] [address] Dr. Sona Cortez ALT [Catalytic activity/Vol] 31 U/L Normal 14-59 [facility] Comment on above: Performed By: #### U ANNABELLE, T7, TSH, CMP, LIPID #### [facility] [address] [place] [address] Dr. Sona Cortez Anion gap [Moles/Vol] 14.8 mmol/L Normal [facility] Comment on above: Performed By: #### U ANNABELLE, T7, TSH, CMP, LIPID #### [facility] [address] [place] [address] Dr. Sona Cortez AST [Catalytic activity/Vol] 17 U/L Normal 15-37 [facility] Comment on above: Performed By: #### U ANNABELLE, T7, TSH, CMP, LIPID #### [facility] [address] [place] [address] Dr. Sona Cortez Bilirubin [Mass/Vol] 0.4 mg/dL Normal 0.2-1.0 [facility] Comment on above: Performed By: #### U ANNABELLE, T7, TSH, CMP, LIPID #### [facility] [address] [place] [address] Dr. Sona Cortez Calcium [Mass/Vol] 9.1 mg/dL Normal 8.5-10.1 [facility] Comment on above: Performed By: #### U ANNABELLE, T7, TSH, CMP, LIPID #### [facility] [address] [place] [address] Dr. Sona Cortez Chloride [Moles/Vol] 100 mmol/L Normal 98-107 [facility] Comment on above: Performed By: #### U ANNABELLE, T7, TSH, CMP, LIPID #### [facility] [address] [place] [address] Dr. Sona Cortez CO2 [Moles/Vol] 27.4 mmol/L Normal 21.0-32.0 [facility] Comment on above: Performed By: #### U ANNABELLE, T7, TSH, CMP, LIPID #### [facility] [address] [place] [address] Dr. Sona Cortez Creatinine [Mass/Vol] 1.05 mg/dL Critically high 0.55-1.02 [facility] Comment on above: Performed By: #### U ANNABELLE, T7, TSH, CMP, LIPID #### [facility] [address] [place] [address] Dr. Sona Cortez EGFR-AF CROATIAN >60 Normal >=60 [facility] Comment on above: Performed By: #### U ANNABELLE, T7, TSH, CMP, LIPID #### [facility] [address] [place] [address] Dr. Sona Cortez EGFR-NON AF CROATIAN 52 mL/min/1.73m2 Critically low >=60 [facility] Comment on above: Performed By: #### U ANNABELLE, T7, TSH, CMP, LIPID #### [facility] [address] [place] [address] Dr. Sona Cortez Globulin (S) [Mass/Vol] 3.5 g/dL Normal [facility] Comment on above: Performed By: #### U ANNABELLE, T7, TSH, CMP, LIPID #### [facility] [address] [place] [address] Dr. Sona Cortez Glucose [Mass/Vol] 149 mg/dL Critically high 74-106 [facility] Comment on above: Performed By: #### U ANNABELLE, T7, TSH, CMP, LIPID #### [facility] [address] [place] [address] Dr. Sona Cortez Potassium [Moles/Vol] 4.2 mmol/L Normal 3.5-5.1 [facility] Comment on above: Performed By: #### U ANNABELLE, T7, TSH, CMP, LIPID #### [facility] [address] [address] [address] Sona Cortez Protein [Mass/Vol] 7.6 g/dL Normal 6.4-8.2 [facility] Comment on above: Performed By: #### U ANNABELLE, T7, TSH, CMP, LIPID #### [facility] [address] [place] [address] Dr. Sona Cortez Sodium [Moles/Vol] 138 mmol/L Normal 136-145 [facility] Comment on above: Performed By: #### U ANNABELLE, T7, TSH, CMP, LIPID #### [facility] [address] [address] [address] Sona Cortez Urea nitrogen [Mass/Vol] 17.0 mg/dL Normal 7.0-18.0 [facility] Comment on above: Performed By: #### U ANNABELLE, T7, TSH, CMP, LIPID #### [facility] [address] [place] [address] Dr. Sona Cortez Urea nitrogen/Creatinine [Mass ratio] 16.2 mg/mg Normal [facility] Comment on above: Performed By: #### U ANNABELLE, T7, TSH, CMP, LIPID #### [facility] [address] [place] [address] Dr. Sona Cortez TSHon 05-02-2022 TSH 2.358 uIU/mL Normal 0.358-3.740 [facility] Comment on above: Performed By: #### U ANNABELLE, T7, TSH, CMP, LIPID #### [facility] [address] [place] [address] Dr. Sona Cortez URIC ACID SERUMon 05-02-2022 Urate [Mass/Vol] 5.2 mg/dL Normal 2.6-6.0 [facility] Comment on above: Performed By: #### U ANNABELLE, T7, TSH, CMP, LIPID #### [facility] [address] [place] [address] Dr. Sona Cortez VITAMIN D 25 OHon 05-02-2022 VIT D 25-OH 15.6 ng/mL Normal [facility] Comment on above: Performed By: #### V ITAD, IRON #### [facility] [address] [place], [place] [address] Dr. Sona Cortez VIT D RANGES SEE BELOW Normal [facility] Comment on above: Result Comment: <20 ng/mL Vit D deficient 20 - <30 ng/mL Vit D insufficient 30 - 100 ng/mL Vit D sufficient >100 ng/mL Potential Toxicity Performed By: #### V ITAD, IRON #### [facility] [address] [place], [place] [address] Dr. Sona Cortez Operative Reporton 9 Operative Report MR#: [id number] I [facility] Pt. Name: Maryam Solomon Room #: [id number] Discharge 08/03/2019 Date: Birthdate: 1955 OPERATIVE REPORT DATE OF SURGERY: 08/02/2019 SURGEON: Krishna Sofia MD BUSINESS REPRESENTATIVE: Tirso Gonzales MD. PREOPERATIVE DIAGNOSIS: Right shoulder [...] the humeral head, and we used a cyber intel planner to make sure the stem was [...] Sofia MD Date Trans: 08/05/2019 01:24 A/macho [id number] cc: Lala Watson M.D. [address], [facility] [id number] Normal [facility] BASIC METABOLIC PANELon 07-23 Calcium [Mass/Vol] 8.9 mg/dL Normal 8.6-10.3 [facility] Comment on above: Order Comment: No: D o not add to previous draw Performed By: #### 5 6101 #### [facility] [address] [place] [address], [facility] Chloride [Moles/Vol] 104 mmol/L Normal 98-107 [facility] Comment on above: Order Comment: No: D o not add to previous draw Performed By: #### 5 6101 #### [facility] [address] [place] [address], [place] CO2 [Moles/Vol] 30 mmol/L Normal 21-31 [facility] Comment on above: Order Comment: No: D o not add to previous draw Performed By: #### 5 6101 #### [facility] [address] [place] [address], [place] Creatinine [Mass/Vol] 0.94 mg/dL Normal 0.60-1.20 [facility] Comment on above: Order Comment: No: D o not add to previous draw Performed By: #### 5 6101 #### [facility] [address] [place] [address], [place] GFR/1.73 sq M predicted among blacks MDRD (S/P/Bld) [Vol rate/Area] mL/min/{1.73_m2} Normal >60 [facility] Comment on above: Order Comment: No: D o not add to previous draw Performed By: #### 5 6101 #### [facility] [address] [place] [address], [place] GFR/1.73 sq M predicted among non-blacks MDRD (S/P/Bld) [Vol rate/Area] mL/min/{1.73_m2} Normal >60 [facility] Comment on above: Order Comment: No: D o not add to previous draw Performed By: #### 5 6101 #### [facility] [address] [place] [address], [place] Glucose [Mass/Vol] 136 mg/dL High 70-[facility] Comment on above: Order Comment: No: D o not add to previous draw Performed By: #### 5 6101 #### [facility] [address] [place] [address], [place] Potassium [Moles/Vol] 4.4 mmol/L Normal 3.5-5.1 [facility] Comment on above: Order Comment: No: D o not add to previous draw Performed By: #### 5 6101 #### [facility] [address] [place] [address], [place] Sodium [Moles/Vol] 141 mmol/L Normal 136-145 [facility] Comment on above: Order Comment: No: D o not add to previous draw Performed By: #### 5 6101 #### [facility] [address] [place] [address], [place] Urea nitrogen [Mass/Vol] 12 mg/dL Normal 7-25 [facility] Comment on above: Order Comment: No: D o not add to previous draw Performed By: #### 5 6101 #### [facility] [address] [facility] [place] [address], [facility] CBC W/DIFFon 08-03-2019 ABS BASOPHILS 0.0 10*3/uL Normal 0.0-0.2 [facility] Comment on above: Order Comment: No: D o not add to previous draw Performed By: #### 5 6101 #### [facility] [address] [place] [address], [facility] ABS IMM GRANS 0.1 10*3/uL Normal 0.0-0.2 [facility] Comment on above: Order Comment: No: D o not add to previous draw Performed By: #### 5 6101 #### [facility] [address] [facility] [place] [address], [facility] ABS NEUTROPHILS 8.0 10*3/uL High 1.6-7.6 [facility] Comment on above: Order Comment: No: D o not add to previous draw Performed By: #### 5 6101 #### [facility] [address] [facility] [place] [address], [facility] Basophils/100 WBC (Bld) 0.1 % Normal 0.0-1.0 [facility] Comment on above: Order Comment: No: D o not add to previous draw Performed By: #### 5 6101 #### [facility] [address] [facility] [place] [address], [facility] Eosinophils (Bld) [#/Vol] 0.0 10*3/uL Normal 0.0-0.5 [facility] Comment on above: Order Comment: No: D o not add to previous draw Performed By: #### 5 6101 #### [facility] [address] [facility] [place] [address], [facility] Eosinophils/100 WBC (Bld) 0.0 % Normal 0.0-6.0 [facility] Comment on above: Order Comment: No: D o not add to previous draw Performed By: #### 5 6101 #### [facility] [address] [place] [address], [facility] Erythrocyte distribution width (RBC) [Ratio] 12.1 % Normal 11.5-15.0 [facility] Comment on above: Order Comment: No: D o not add to previous draw Performed By: #### 5 6101 #### [facility] [address] [place] [address], [facility] Hematocrit (Bld) [Volume fraction] 29.4 % Low 36.0-45.0 [facility] Comment on above: Order Comment: No: D o not add to previous draw Performed By: #### 5 6101 #### [facility] [address] [place] [id number], [facility] Hemoglobin (Bld) [Mass/Vol] 9.5 g/dL Low 12.0-15.0 [facility] Comment on above: Order Comment: No: D o not add to previous draw Performed By: #### 5 6101 #### [facility] [address] [place] [id number], [facility] IMMATURE GRANS 0.5 % Normal 0.0-1.0 [facility] Comment on above: Order Comment: No: D o not add to previous draw Performed By: #### 5 6101 #### [facility] [address] [place] [id number], [facility] Lymphocytes (Bld) [#/Vol] 1.3 10*3/uL Normal 1.2-4.0 [facility] Comment on above: Order Comment: No: D o not add to previous draw Performed By: #### 5 6101 #### [facility] [address] [place] [id number], [facility] Lymphocytes/100 WBC (Bld) 13.1 % Low 20.0-45.0 [facility] Comment on above: Order Comment: No: D o not add to previous draw Performed By: #### 5 [id number] #### [facility] [address] [place] [address], [facility] MCH (RBC) [Entitic mass] 32.0 pg Normal 27.0-33.0 [facility] Comment on above: Order Comment: No: D o not add to previous draw Performed By: #### 5 6101 #### [facility] [address] [place] [id number], [facility] MCHC (RBC) [Mass/Vol] 32.3 g/dL Normal 32.0-35.0 [facility] Comment on above: Order Comment: No: D o not add to previous draw Performed By: #### 5 6101 #### [facility] [address] [place] [address], [facility] MCV (RBC) [Entitic vol] 99.0 fL High 82.0-98.0 [facility] Comment on above: Order Comment: No: D o not add to previous draw Performed By: #### 5 6101 #### [facility] [address] [place] [address], [facility] Monocytes (Bld) [#/Vol] 0.7 10*3/uL Normal 0.1-1.0 [facility] Comment on above: Order Comment: No: D o not add to previous draw Performed By: #### 5 6101 #### [facility] [address] [address], [facility] MONOS 7.2 % Normal 5.0-12.0 [facility] Comment on above: Order Comment: No: D o not add to previous draw Performed By: #### 5 6101 #### [facility] [address] [place] [address], [facility] Neutrophils/100 WBC (Bld) 79.1 % High 40.0-72.0 [facility] Comment on above: Order Comment: No: D o not add to previous draw Performed By: #### 5 6101 #### [facility] [address] [place] [address], [facility] Nucleated RBC/100 WBC (Bld) [Ratio] 0 % Normal 0-0 [facility] Comment on above: Order Comment: No: D o not add to previous draw Performed By: #### 5 6101 #### [facility] [address] [place] [address], [place] PLAT CNT 264 10*3/uL Normal 150-400 [facility] Comment on above: Order Comment: No: D o not add to previous draw Performed By: #### 5 6101 #### [facility] [address] [place] [address], [facility] RBC (Bld) [#/Vol] 2.97 10*6/uL Low 3.80-5.00 [facility] Comment on above: Order Comment: No: D o not add to previous draw Performed By: #### 5 [id number] #### [facility] [address] [place] [address], [facility] WBC (Bld) [#/Vol] 10.07 10*3/uL Normal 4.00-10.60 [facility] Comment on above: Order Comment: No: D o not add to previous draw Performed By: #### 5 6101 #### [facility] [address] [facility] [place] [address], [facility] POC GLUCOSE LABon 08-02-2019 Glucose [Mass/Vol] 95 mg/dL Normal 70-100 [facility] Comment on above: Performed By: #### 5 6101 #### [facility] [address] [facility] [place] [address], [facility] PORTABLE SHOULDER RIGHT 2 VW Son 08-02-2019 PORTABLE SHOULDER RIGHT 2 VWS [facility] Department of Radiology [address] [place] [id number] ======== Patient Name: MARYAM SOLOMON : 1955 Sex: F Age: Race: White Pt. Location: [place] [address] Patient Status: I Ordered Date: 08/02/2019 5:55:00 PM Completed Date: 08/02/2019 06:34 PM Requesting Provider: TIRSO GONZALES Attending Provider: KRISHNA SOFIA Report Copy To: Signs & Symptoms: Pain ( specify Location) History: See Comments Comments: Hardware Evaluation Exam: PORTABLE SHOULDER RIGHT 2 VWS ======== PORTABLE SHOULDER RIGHT 2 S 08/02/2019 [...] findings. Electronically signed by:Gayle Rowe. Transcribed by: [email or web address], User Resident: VILMA AMAYA Electronically Signed by: GAYLE ROWE @ 08/02/2019 07:31 PM I personally read this/these film(s) with this resident Normal [facility] [facility] Comment on above: Order Comment: No: D o not add to previous draw CT 3D UPPER EXTREMITY WO CON ARTHUR RIGHTon 07-10-2019 CT 3D UPPER EXTREMITY WO CONTRAST RIGHT [facility] Department of Radiology [address] [place] [address] ======== Patient Name: MARYAM SOLOMON : 1955 Sex: F Age: Race: White Pt. 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 Electronically signed by:Los Odonnell. Transcribed by: [email or web address], User Resident: Electronically Signed by: LOS ODONNELL @ 07/10/2019 04:22 PM Normal [facility] Comment on above: Order Comment: No: D o not add to previous draw SHOULDER RIGHTon 07-02-2019 SHOULDER RIGHT [facility] Department of Radiology [address] [place] [id number] ======== Patient Name: MARYAM SOLOMON : [...] instability Electronically signed by:Los Odonnell. Transcribed by: [email or web address], User Resident: Electronically Signed by: LOS ODONNELL @ 07/02/2019 03:41 PM Normal [facility] Comment on above: Order Comment: No: D o not add to previous draw Operative Reporton 9 Operative Report MR#: [id number] S [facility] Pt. Name: Maryam Solomon Room #: [...] Sofia MD Date Trans: 11/29/2018 06:23 A/macho DN_JN:[id number] cc: Lala Watson M.D. [address] [place] [address] Normal [facility] POC GLUCOSE LABon 11-27-2018 Glucose [Mass/Vol] 90 mg/dL Normal 70-100 [facility] Comment on above: Performed By: #### 0 0071 #### [facility] [address] [facility]. [address] *MRSA/MSSA DNA NASALon 11-06 *MRSA/MSSA DNA NASAL Clinical Report: (D ) Specimen: NASAL SWAB Collected: 11/06/2018 13:53 Status: Final Last Updated: 11/06/2018 18:38 MSSA DNA (Final) Negative MRSA DNA (Final) Negative Normal [facility] Comment on above: Performed By: #### 0 0071 #### [facility] [address] [facility] [place] [address], [facility] APTTon 11-06-2018 aPTT Coag (Bld) [Time] 33.9 s Normal 25.0-35.0 [facility] Comment on above: Result Comment: ALL [...] PURPOSE. Performed By: #### 0 0071 #### [facility] [address] [place] [address], [facility] BASIC METABOLIC PANELon 10-23 Calcium [Mass/Vol] 9.4 mg/dL Normal 8.6-10.3 [facility] Comment on above: Performed By: #### 0 0071 #### [facility] [address] [place] [address], [facility] Chloride [Moles/Vol] 102 mmol/L Normal 98-107 [facility] Comment on above: Performed By: #### 0 0071 #### [facility] [address] [place] [address], [facility] CO2 [Moles/Vol] 27 mmol/L Normal 21-31 [facility] Comment on above: Performed By: #### 0 0071 #### [facility] [address] [place] [address], [facility] Creatinine [Mass/Vol] 0.86 mg/dL Normal 0.60-1.20 [facility] Comment on above: Performed By: #### 0 0071 #### [facility] [address] [place] [address], [facility] GFR/1.73 sq M predicted among blacks MDRD (S/P/Bld) [Vol rate/Area] mL/min/{1.73_m2} Normal >60 [facility] Comment on above: Performed By: #### 0 0071 #### [facility] [address] [place] [address], [facility] GFR/1.73 sq M predicted among non-blacks MDRD (S/P/Bld) [Vol rate/Area] mL/min/{1.73_m2} Normal >60 [facility] Comment on above: Performed By: #### 0 0071 #### [facility] [address] Glucose [Mass/Vol] 91 mg/dL Normal 70-100 [facility] Comment on above: Performed By: #### 0 0071 #### [facility] [address] [place] [address], [facility] Potassium [Moles/Vol] 4.1 mmol/L Normal 3.5-5.1 [facility] Comment on above: Performed By: #### 0 0071 #### [facility] [address] [place] [address], [facility] Sodium [Moles/Vol] 134 mmol/L Low 136-145 [facility] Comment on above: Performed By: #### 0 0071 #### [facility] [address] Urea nitrogen [Mass/Vol] 17 mg/dL Normal 7-25 [facility] Comment on above: Performed By: #### 0 0071 #### [facility] [address] [place] [address], [facility] CBC W/DIFFon 11-06-2018 ABS BASOPHILS 0.1 10*3/uL Normal 0.0-0.2 [facility] Comment on above: Performed By: #### 0 0071 #### [facility] [address] ABS IMM GRANS 0.0 10*3/uL Normal 0.0-0.2 [facility] Comment on above: Performed By: #### 0 0071 #### [facility] [address] ABS NEUTROPHILS 4.6 10*3/uL Normal 1.6-7.6 The [facility] Comment on above: Performed By: #### 0 0071 #### [facility] [address] [place] [address], [facility] Basophils/100 WBC (Bld) 0.7 % Normal 0.0-1.0 [facility] Comment on above: Performed By: #### 0 0071 #### [facility] [address] [place] [address], [facility] Eosinophils (Bld) [#/Vol] 0.1 10*3/uL Normal 0.0-0.5 [facility] Comment on above: Performed By: #### 0 0071 #### [facility] [address] [place] [address], [facility] Eosinophils/100 WBC (Bld) 1.8 % Normal 0.0-6.0 [facility] Comment on above: Performed By: #### 0 0071 #### [facility] [address] [facility]. [address] Erythrocyte distribution width (RBC) [Ratio] 11.9 % Normal 11.5-15.0 [facility] Comment on above: Performed By: #### 0 0071 #### [facility] [address] [facility] [place] [address], [facility] Hematocrit (Bld) [Volume fraction] 38.6 % Normal 36.0-45.0 [facility] Comment on above: Performed By: #### 0 0071 #### [facility] [address] [facility] [place] [address], [facility] Hemoglobin (Bld) [Mass/Vol] 12.6 g/dL Normal 12.0-15.0 [facility] Comment on above: Performed By: #### 0 0071 #### [facility] [address] [facility] [place] [address], [facility] IMMATURE GRANS 0.1 % Normal 0.0-1.0 [facility] Comment on above: Performed By: #### 0 0071 #### [facility] [address] [place] [address], [facility] Lymphocytes (Bld) [#/Vol] 1.9 10*3/uL Normal 1.2-4.0 [facility] Comment on above: Performed By: #### 0 0071 #### [facility] [address] [facility] [place] [address], [facility] Lymphocytes/100 WBC (Bld) 26.3 % Normal 20.0-45.0 [facility] Comment on above: Performed By: #### 0 0071 #### [facility] [address] [facility] [place] [address], [facility] MCH (RBC) [Entitic mass] 30.8 pg Normal 27.0-33.0 [facility] Comment on above: Performed By: #### 0 0071 #### [facility] [address] [facility] [place] [address], [facility] MCHC (RBC) [Mass/Vol] 32.6 g/dL Normal 32.0-35.0 [facility] Comment on above: Performed By: #### 0 0071 #### [facility] [address] [place] [address], [facility] MCV (RBC) [Entitic vol] 94.4 fL Normal 82.0-98.0 [facility] Comment on above: Performed By: #### 0 0071 #### [facility] [address] [place] [address], [facility] Monocytes (Bld) [#/Vol] 0.4 10*3/uL Normal 0.1-1.0 [facility] Comment on above: Performed By: #### 0 0071 #### [facility] [address] [place] [address], [facility] MONOS 5.5 % Normal 5.0-12.0 [facility] Comment on above: Performed By: #### 0 0071 #### [facility] [address] [facility] [place] [address], [facility] Neutrophils/100 WBC (Bld) 65.6 % Normal 40.0-72.0 [facility] Comment on above: Performed By: #### 0 0071 #### [facility] [address] Nucleated RBC/100 WBC (Bld) [Ratio] 0 % Normal 0-0 [facility] Comment on above: Performed By: #### 0 0071 #### [facility] [address] [place] [address], [facility] PLAT CNT 327 10*3/uL Normal 150-400 [facility] Comment on above: Performed By: #### 0 0071 #### [facility] [address] RBC (Bld) [#/Vol] 4.09 10*6/uL Normal 3.80-5.00 [facility] Comment on above: Performed By: #### 0 0071 #### [facility] [address] WBC (Bld) [#/Vol] 7.03 10*3/uL Normal 4.00-10.60 [facility] Comment on above: Performed By: #### 0 0071 #### [facility] [address] PROTHROMBIN TIMEon 9 INR Coag (PPP) [Relative time] 0.93 {INR} Normal 0.91-1.16 [facility] Comment on above: Result Comment: [...] 1995;108:231S-246S. Performed By: #### 0 0071 #### [address] PT Coag (PPP) [Time] 12.5 s Normal 12.3-14.8 [facility] Comment on above: Result Comment: ALL RESULTS MUST BE INTERPRETED WITH RESPECT TO BLOOD DRAWING ARTIFACT OR DILUTION ERROR OF ANTICOAGULANT AT THE TIME OF SAMPLING. Performed By: #### 0 0071 #### [address] MRI SHOULDER WO CONTRAST RIG HTon 10-29-2018 MRI SHOULDER WO CONTRAST RIGHT [facility] Department of Radiology [address] [place] [phone] ======== Patient Name: MARYAM SOLOMON : 1955 Sex: F Age: Race: White Pt. Location: Patient Status: D Ordered Date: 10/17/2018 3:15:00 PM Completed Date: 10/29/2018 04:20 PM Requesting Provider: KRISHNA SOFIA Attending Provider: KRISHNA SOFIA Report Copy To: LALA WATSON Signs & Symptoms: M75.121 Complete rotatr-cuff tear/ruptr of r shoulder, not trauma I10 History: [place] no pc per todd @ [employer] cpt code 60687 call ref# [id number] *mla Comments: , , , Ordering Provider [...] bursitis. Electronically signed by:Los Odonnell. Transcribed by: [email or web address], User Resident: Electronically Signed by: LOS ODONNELL @ 10/30/2018 12:47 PM Normal [facility] Comment on above: Order Comment: No: D o not add to previous draw SHOULDER RIGHTon 09-04-2018 SHOULDER RIGHT [facility] Department of Radiology [address] [place] [phone] ======== Patient Name: MARYAM SOLOMON : [...] joint Electronically signed by:Brendan Morin. Transcribed by: [email or web address], User Resident: Electronically Signed by: BRENDAN MORIN @ 09/04/2018 01:55 PM Normal [facility] Comment on above: Order Comment: No: D o not add to previous draw Operative Reporton 8 Operative Report MR#: [id number] I [facility] Pt. Name: Maryam Solomon Room #: [id number] Discharge 08/24/2018 Date: Birthdate: 1955 OPERATIVE REPORT [...] Sofia MD Date Trans: 08/25/2018 09:10 A/macho DN_JN:[id number] cc: Lala Watson M.D. [facility] [address] [facility] [address] Adilene Liu M.D. [facility] Physican...do Not Send [address] [facility] [place] [address] Normal [facility] BASIC METABOLIC PANELon 11-0 Calcium [Mass/Vol] 8.9 mg/dL Normal 8.6-10.3 [facility] Comment on above: Order Comment: No: D o not add to previous draw Performed By: #### 0 0071 #### [facility] [address] [place] [address], [place] Chloride [Moles/Vol] 102 mmol/L Normal 98-107 [facility] Comment on above: Order Comment: No: D o not add to previous draw Performed By: #### 0 0071 #### [facility] [address] [place] [address], [place] CO2 [Moles/Vol] 24 mmol/L Normal 21-31 [facility] Comment on above: Order Comment: No: D o not add to previous draw Performed By: #### 0 0071 #### [facility] [address] [place] [address], [place] Creatinine [Mass/Vol] 0.84 mg/dL Normal 0.60-1.20 [facility] Comment on above: Order Comment: No: D o not add to previous draw Performed By: #### 0 0071 #### [facility] [address] [place] [address], [place] GFR/1.73 sq M predicted among blacks MDRD (S/P/Bld) [Vol rate/Area] mL/min/{1.73_m2} Normal >60 [facility] Comment on above: Order Comment: No: D o not add to previous draw Performed By: #### 0 0071 #### [facility] [address] [place] [address], [facility] GFR/1.73 sq M predicted among non-blacks MDRD (S/P/Bld) [Vol rate/Area] mL/min/{1.73_m2} Normal >60 [facility] Comment on above: Order Comment: No: D o not add to previous draw Performed By: #### 0 0071 #### [facility] [address] [place] [address], [facility] Glucose [Mass/Vol] 182 mg/dL High 70-100 [facility] Comment on above: Order Comment: No: D o not add to previous draw Performed By: #### 0 0071 #### [facility] [address] [place] [address], [facility] Potassium [Moles/Vol] 4.1 mmol/L Normal 3.5-5.1 [facility] Comment on above: Order Comment: No: D o not add to previous draw Performed By: #### 0 0071 #### [facility] [address] [place] [address], [facility] Sodium [Moles/Vol] 135 mmol/L Low 136-145 [facility] Comment on above: Order Comment: No: D o not add to previous draw Performed By: #### 0 0071 #### [facility] [address] [place] [address], [facility] Urea nitrogen [Mass/Vol] 12 mg/dL Normal 7-25 [facility] Comment on above: Order Comment: No: D o not add to previous draw Performed By: #### 0 0071 #### [facility] [address] [place] [address], [facility] CBC COMPLETE BLOOD COUNTon 10-23-2017 Erythrocyte distribution width (RBC) [Ratio] 12.3 % Normal 11.5-15.0 [facility] Comment on above: Order Comment: No: D o not add to previous draw Performed By: #### 5 0608 #### [facility] [address] [place] [address], [facility] Hematocrit (Bld) [Volume fraction] 34.9 % Low 36.0-45.0 [facility] Comment on above: Order Comment: No: D o not add to previous draw Performed By: #### 5 0608 #### [facility] [address] [place] [id number], [facility] Hemoglobin (Bld) [Mass/Vol] 11.7 g/dL Low 12.0-15.0 [facility] Comment on above: Order Comment: No: D o not add to previous draw Performed By: #### 5 0608 #### [facility] [address] [place] [id number], [facility] MCH (RBC) [Entitic mass] 31.7 pg Normal 27.0-33.0 [facility] Comment on above: Order Comment: No: D o not add to previous draw Performed By: #### 5 0608 #### [facility] [address] [place] [address], [facility] MCHC (RBC) [Mass/Vol] 33.5 g/dL Normal 32.0-35.0 [facility] Comment on above: Order Comment: No: D o not add to previous draw Performed By: #### 5 0608 #### [facility] [address] [place] [address], [facility] MCV (RBC) [Entitic vol] 94.6 fL Normal 82.0-98.0 [facility] Comment on above: Order Comment: No: D o not add to previous draw Performed By: #### 5 0608 #### [facility] [address] [place] [id number], [facility] Nucleated RBC/100 WBC (Bld) [Ratio] 0 % Normal 0-0 [facility] Comment on above: Order Comment: No: D o not add to previous draw Performed By: #### 5 0608 #### [facility] [address] [place] [address], [facility] PLAT CNT 322 10*3/uL Normal 150-400 [facility] Comment on above: Order Comment: No: D o not add to previous draw Performed By: #### 5 0608 #### [facility] [address] [place] [address], [facility] RBC (Bld) [#/Vol] 3.69 10*6/uL Low 3.80-5.00 [facility] Comment on above: Order Comment: No: D o not add to previous draw Performed By: #### 5 0608 #### [facility] [address] [place] [address], [facility] WBC (Bld) [#/Vol] 16.41 10*3/uL High 4.00-10.60 [facility] Comment on above: Order Comment: No: D o not add to previous draw Performed By: #### 5 0608 #### [facility] [address] [facility] [place], [place] [id number] [place] [address] CT UPPER EXTREMITY WO CONTRA ST RIGHTon 08-23-2018 CT UPPER EXTREMITY WO CONTRAST RIGHT [facility] Department of Radiology [address] [place] [phone] ======== Patient Name: MARYAM SOLOMON : 1955 Sex: F Age: Race: White Pt. Location: [id number] Patient Status: I Ordered Date: 08/23/2018 8:45:00 [...] fracture Electronically signed by:Los Odonnell. Transcribed by: [email or web address], User Resident: Electronically Signed by: LOS ODONNELL @ 08/23/2018 01:20 PM Normal [facility] Comment on above: Order Comment: R/O F ractures, Right shoulder CT scan to evaluate fx pattern Consultationon 08-23-2018 Consultation MR#: [id number] [facility] Pt. Name: Maryam Solomon Date of Service: 08/23/2018 Room #: [id number] Birthdate: 1955 Referring Physician: CONSULTATION HISTORY OF [...] to 0.5% for any cardiac or non-fatal ND and I feel very comfortable to just [...] Mchugh MD Date Trans: 08/23/2018 09:21 P/mmo [id number]:[id number] cc: Lala Watson M.D. [place] [address] [facility] [address] Adilene Lui M.D. E R Physican...do Not Send [address] [facility] [address] Normal [facility] PORTABLE SHOULDER RIGHT 2 VW Son 08-23-2018 PORTABLE SHOULDER RIGHT 2 VWS [facility] Department of Radiology [address] [place] [address] ======== Patient Name: MARYAM SOLOMON : 1955 Sex: F Age: Race: White Pt. Location: [facility] Patient Status: I Ordered Date: 08/23/2018 1:40:00 [...] Bankart Electronically signed by:Los Odonnell. Transcribed by: [email or web address], User Resident: Electronically Signed by: LOS ODONNELL @ 08/23/2018 09:02 AM Normal [facility] Comment on above: Order Comment: R/O D islocation, 3 views; Grashey, scapular Y, and axillary (or velpeau if cannot obtain satisfactory axillary) PROTHROMBIN TIMEon 8 INR Coag (PPP) [Relative time] 0.97 {INR} Normal 0.91-1.16 [facility] Comment on above: Order Comment: [...] 1995;108:231S-246S. Performed By: #### 5 6101 #### [address] PT Coag (PPP) [Time] 12.9 s Normal 12.3-14.8 [facility] Comment on above: Order Comment: No: D o not add to previous draw Result Comment: ALL RESULTS MUST BE INTERPRETED WITH RESPECT TO BLOOD DRAWING ARTIFACT OR DILUTION ERROR OF ANTICOAGULANT AT THE TIME OF SAMPLING. Performed By: #### 5 6101 #### [address] SHOULDER RIGHTon 08-23-2018 SHOULDER RIGHT [facility] Department of Radiology [address] [place] [phone] ======== Patient Name: MARYAM SOLOMON : 1955 Sex: F Age: Race: White Pt. Location: [id number] Patient Status: I Ordered Date: 08/23/2018 2:10:00 [...] findings. Electronically signed by:Gayle Rowe. Transcribed by: [email or web address], User Resident: DAMIÁN DACOSTA Electronically Signed by: GAYLE ROWE @ 08/24/2018 05:40 PM I personally read this/these film(s) with this resident Normal [facility] Comment on above: Order Comment: RIGHT SHOULDER CLOSED VS. OPEN REDUCTION TYPE AND SCREENon 08-23-2018 ABO INTERPRETATION O Normal [facility] Comment on above: Performed By: #### 6 2586 #### [facility] [address] [place] [address], [facility] RH INTERPRETATION Positive Normal [facility] Comment on above: Performed By: #### 6 2586 #### [facility] [address] [place] [address], [place] Vital Signs Date Time Vital Sign Value Performing Clinician Mari hewitt 09-05-2023 15:01-0500 Blood Pressure Location Eron MULLER [facility] [place] 09-05-2023 15:01-0500 Diastolic blood pressure 94 mm[Hg] Eron MULLER [facility] [place] 09-05-2023 15:01-0500 Heart rate 70 /min Eron NILL [facility] [place] 09-05-2023 15:01-0500 Respiratory rate 16 /min Eron NILL [facility] [place] 09-05-2023 15:01-0500 Systolic blood pressure 152 mm[Hg] Eron NILL [facility] [place] Encounters Encounter Date Encounter Type Care Provider Facility Start: 05-23-2024 End: 05-25-2024 ambulatory [facility] Start: 05-14-2024 End: 05-14-2024 ambulatory [facility] Start: 05-14-2024 Encounter for gynecological examination (general) (routine) without abnormal findings [facility] Start: 10-10-2023 End: 10-11-2023 ambulatory Eron R NILL Facility: [facility] Start: 10-10-2023 End: 10-10-2023 Patient encounter procedure Eron R NILL [facility] Start: 09-27-2023 End: 09-28-2023 ambulatory Eron R NILL Facility:CD:[id number] Start: 09-05-2023 End: 09-06-2023 ambulatory Eron R NILL Facility: [facility] Start: 09-05-2023 End: 09-05-2023 Patient encounter procedure Eron R NILL [facility] Start: 11-22-2022 ambulatory Eron R NILL Facility : [facility] Start: 09-21-2022 End: 09-22-[address] LALA WATSON Facility: Start: 08-22-2022 End: 08-22-2022 Patient encounter procedure Lala Watson MD Work Phone: [facility] Start: 08-22-2022 End: 08-22-2022 Subsequent hospital visit by physician Lala Watson MD Work Phone: [facility] Comment on above: Women's annual routi ne gynecological examination Start: 05-02-2022 End: 05-03-[address] LALA WATSON Facility:[facility] Start: [address] LALA WATSON Facility :[facility] Start: 04-20-2020 End: 04-20-2020 Subsequent hospital visit by physician Lala Watson [facility] Comment on above: Encounter for well farida lazaro exam with routine gynecological exam Start: 08-02-2019 End: 08-03-2019 Evaluation and management of inpatient OSAMA ELATTAR Facility:[facility] Start: 11-27-2018 End: 11-28-2018 Patient encounter procedure OSAMA ELATTAR Facility:[facility] Start: 08-23-2018 End: 08-24-2018 Evaluation and management of inpatient ADILENE LIU Facility:[facility] Procedures Date Procedure Procedure Detail Performing Clinician [...] above: Performed By: #### 6 2586 #### [facility] [address] [facility] [place] [address], [facility] Start: 08-23-2018 REPOSITION RIGHT MIMA ULDER JOINT, EXTERNAL APPROACH OSAMA ELATTAR Start: 10-23-1976 Appendectomy Eron ARANDA Comment on above: [facility] Arthroplasty of righ t shoulder Eron MULLER Colonoscopy Eron NILL Colonoscopy Eron NILL Comment on above: x 2 ([facility]) Repair of musculoten dinous cuff of shoulder Eron HUSTONRocio Tonsillectomy Eron YOHANA Vaginal hysterectomy Eron HUSTONRocio Plan of Treatment Date Care Activity Detail Author Start: 09-21-2023 End: 09-21-2023 Patient encounter procedure 09/21/2023 Office Visit Obstetrics and Gynecology Janusz Flores MD [address] [place] [address] [facility] Start: 08-24-2023 End: 08-24-2023 Patient encounter procedure 08/24/2023 Office Visit Obstetrics and Gynecology Janusz Flores MD [address] [place] [address] [facility] Start: 08-25-2022 Screening for malign ant neoplasm of breast Breast cancer screen [facility] Start: 05-23-2022 Influenza vaccination Flu vaccine (# 1) [facility] Start: 05-18-2022 COVID-19 Vaccine (5 - Booster for Pfizer series) COVID-19 Vaccine (5 - Booster for Pfizer series) [facility] Start: 03-08-2022 Pneumococcal 65+ yea rs Vaccine (2 - PPSV23 if available, else PCV20) Pneumococcal 65+ years Vaccine (2 - PPSV23 if available, else PCV20) [facility] Start: 06-23-2020 Influenza vaccination Flu vacc ine (Season Ended) [place], [place] Start: 05-17-2019 Screening for malign ant neoplasm of cervix Cervical cancer screen [place], [place] Start: 09-12-2018 Screening for malign ant neoplasm of breast Breast cancer screen [place], [place] Start: 2010 Screening for osteoporosis DEXA (modify frequency per FRAX score) [facility] Start: 2005 Screening for malign ant neoplasm of colon Colon cancer screen colonoscopy [place], [place] Start: 2005 Shingles Vaccine (1 of 2) Shingles Vaccine (1 of 2) [facility] Start: 2000 Screening for malign ant neoplasm of colon [facility] Start: 1995 Diabetes screen Diabetes screen [place], [place] Start: 1990 Diabetes screen Diabetes screen [facility] Start: 1974 DTaP/Tdap/Td vaccine (1 - Tdap) DTaP/Tdap/Td vaccine (1 - Tdap) [facility] Start: 1973 Hepatitis C screening [facility] Start: 1970 HIV screening HIV screen [place], [place] Start: 1967 Depression Screen Depression Screen [facility] Start: 1965 Lipid panel [facility] Start: 1955 Creatinine measurement Creatinine mo nitoring [place], [place] Start: 1955 Hepatitis C screening Hepatitis C sc [place], [place] Start: 1955 Potassium monitoring Potassium monit [place], [place] End: 04-20-2020 Cytopathology procedure, preparation of smear, genital source [facility] Lab Routine Encounter For Well Woman Exam With Routine Gynecological Exam 1 Occurrences starting 04/20/2020 until 04/20/2020 [place] Comment on above: 1 Occurrences starti ng 04/20/2020 until 04/20/2020 End: 08-22-2022 Cytopathology procedure, preparation of smear, genital source [facility] Lab Routine Women's annual routine gynecological examination 1 Occurrences starting 08/22/2022 until 08/22/2022 [facility] Work Phone: Comment on above: 1 Occurrences starti ng 08/22/2022 until 08/22/2022 Immunizations Immunization Date Immunization Notes Care Provider Brian augustin 07-23-2023 influenza virus vaccine, unspecified formulation Eron MULLER [facility] 09-21-2022 influenza virus vaccine, unspecified formulation Eron MULLER [facility] 09-21-2022 SARS-CoV-2 (COVID-19 ) [id number] Eron HUSTONL [facility] 03-23-2022 SARS-CoV-2 mRNA (lhdspqaznbp-pigi-boikl se) vaccine Eron NILL [facility] 08-09-2021 SARS-CoV-2 (COVID-19 ) mRNA BNT-162b2 vax Eron NILL [facility] Comment on above: Result Comment: 2022: [id number] 01-12-2021 SARS-CoV-2 (COVID-19 ) mRNA BNT-162b2 vax Eron NILL [facility] 12-21-2020 SARS-CoV-2 (COVID-19 ) mRNA BNT-162b2 vax Eron NILL [facility] Payers Date Payer Category Payer Unknown [id number] 2019 Unknown BCBS [place] P PO xxxxxxxxxxxxxxx 2019-Present [address] [place] [address] xxxxxxxxxxxxxxx [id number] 2019 Unknown [id number] 1959 Self-pay [id number] 1959 Unknown [id number] 1959 Unknown [id number] 1955 Unknown [id number] [id number] 1955 Unknown [id number] 2.16.840.1.820908.3.579.2.647 1955 Unknown [id number] 2.16.840.1.615679.3.579.2.647 1955 Unknown [id number] 2.16.840.1.868742.3.579.2.593 1955 Unknown [id number] 2.16.840.1.005644.3.579.2.593 1955 Unknown [id number] 2.16.840.1.139081.3.579.2.593 1955 Unknown [id number] 2.16.840.1.018550.3.579.2.727 1955 Unknown [id number] 2.16.840.1.910816.3.579.2.727 1955 Unknown [id number] 2.16.840.1.464245.3.579.2.727 1955 Unknown [id number] 2.16.840.1.069533.3.579.2.727 1955 Unknown [id number] 2.16.840.1.948380.3.579.2.173 1955 Unknown [id number] 2.16.840.1.597339.3.579.2.173 1955 Unknown [id number] [id number] Social History Date Type Detail Facility Start: 04-20-2020 End: 09-05-2023 Tobacco smoking status NHIS Never smoker [place] Start: 04-20-2020 End: 08-22-2022 Alcohol intake Current drinker of alcohol (finding) [place], [place] Start: 1955 Sex Assigned At Not on file M [place] Exposure to SARS-CoV -2 (event) Unable to assess [place] Start: 04-20-2020 Tobacco use and exposure Smokeless tobacco non-user CYNTHIA MCCRARY [facility] Work Phone: Tobacco smoking status Never Gener al [facility] Sex Assigned At Female [facility] Functional Status Date Assessment Result Facility 11-14-2023 Functional Status N/A General Elise rgery Brennen Clinical Note 09-05-2023 Note Date & Type [...] Tobacco Use:. Never (more content not included)... [facility] Comment on above: Result Comment: Elec [...] authenticated by: COLLETTE CUMMINGS Date: 2022-05-02 20:56 [facility] Evaluation + Plan note Note Date & Type Note Facility Evaluation + Plan note No data available for this section [facility] Evaluation note Note Date & Type Note Facility Evaluation note Diagnosis Women's annual routine gynecological examination documented in this encounter [facility] Work Phone: Hospital Discharge instructions Note Date & Type Note Facility Hospital Discharge instructions No data available for this section [facility] Progress note Note Date & Type Note Facility Progress note No data available for this section General Surgery [facility] Summary Purpose Family History No Family History Records FoundNo Family History Records Found No data available for this section No data available for this section No Family History Records FoundNo Family History Records Found Advance Directives No Advanced Directives Records FoundDocuments on File Type Date Recorded 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 Name: Maryam Solomon Admitted: 08/23/2018 Discharged: [...] (more content not included)... Note MR#: [id number] [facility] Pt. Name: Maryam Solomon Admitted: 08/02/2019 Discharged: 08/03/2019 Date of : 1955 Physician: Krishna Sofia MD DISCHARGE SUMMARY PRINCIPAL DIAGNOSIS: Right shoulder degenerative joint disease. PROCEDURES PERFORMED: Right reverse total shoulder replacement with open biceps tenodesis. COMPLICATIONS: None. CONSULTS: Physical and Occupational Therapy. HOSPITAL COURSE: The patient is a 63-year-old female who presented to [facility] as outpatient with chief complaint of right [...] section and content) DATE CREATED AUTHOR 08/20/2019 [facility] DATE CREATED AUTHOR AUTHOR'S ORGANIZ ATION 09/28/2022 [facility] DATE CREATED AUTHOR AUTHOR'S ORGANIZ ATION 10/19/2023 [facility] DATE CREATED AUTHOR AUTHOR'S ORGANIZ ATION 05/27/2024 Arlet Lorenzana [facility] Care Teams (unrecognized sec tion and content) Social Media Executive Relationship Specialty Start Date End Date Lala Watson MD [address] [phone] PCP - General Family Medicine 05/17/16 FOR [...] BE BASED ON THE PRIMARY CLINICAL RECORDS. [employer] provides no warranty or guarantee of the accuracy or completeness of information in this document.
[2024-05-30 10:49] LABS: Basophils Absolute Auto 0.1 10^3/uL (0.0-0.1); Basophils Percent Auto 0.6 % (0.2-2.0); Eosinophils Absolute Auto 0.1 10^3/uL (0.0-0.7); Eosinophils Percent Auto 1.3 % (0.9-7.0); Hematocrit 33.6 % (36.0-48.0); Hemoglobin 11.2 g/dL (12.0-16.0); Immature Granulocytes Abs Auto 0.04 10^3/uL (0.00-0.03); Immature Granulocytes Pct Auto 0.5 % (0.0-0.5); Lymphocytes Absolute Auto 1.9 10^3/uL (1.2-3.8); Lymphocytes Percent Auto 22.3 % (20.5-60.0); Mean Corpuscular HGB Conc 33.3 g/dL (29.9-35.2); Mean Corpuscular Hemoglobin 32.2 pg (26.7-34.0); Mean Corpuscular Volume 96.6 fL (81.0-99.0); Mean Platelet Volume 8.9 fL (9.5-13.5); Monocytes Absolute Auto 0.4 10^3/uL (0.3-0.8); Monocytes Percent Auto 4.9 % (1.7-12.0); Neutrophils Absolute Auto 5.9 10^3/uL (1.4-6.5); Neutrophils Percent Auto 70.4 % (43.0-75.0); Platelet Count 315 10^3/uL (150-450); Red Blood Count 3.48 10^6/uL (4.20-5.40); Red Cell Distribution Width 12.3 % (11.0-15.0); White Blood Count 8.4 10^3/uL (4.0-11.0)
[2024-05-30 11:21] LABS: Alanine Aminotransferase 28 U/L (14-59); Albumin Globulin Ratio 1.3; Albumin Level 3.9 g/dL (3.4-5.0); Alkaline Phosphatase 81 U/L (46-116); Anion Gap 12.4; Aspartate Amino Transferase 13 U/L (15-37); BUN Creatinine Ratio 16.3; Bilirubin Total 0.5 mg/dL (0.2-1.0); Calcium 9.2 mg/dL (8.5-10.1); Carbon Dioxide 26.9 mmol/L (21.0-32.0); Chloride 102 mmol/L (98-107); Chol HDL Ratio 2.5; Cholesterol 177 mg/dL (<=200); Estimated GFR (African America >60 (>=60); Estimated GFR (Non-African Ame >60 (>=60); Glucose 104 mg/dL (74-106); HDL Cholesterol 71 mg/dL (40-60); Potassium 4.3 mmol/L (3.5-5.1); Sodium 137 mmol/L (136-145); Total Protein 6.9 g/dL (6.4-8.2); Triglycerides 60 mg/dL (<=150)
[2024-05-30 11:45] LABS: Estimated Average Glucose 123 mg/dL; Glycohemoglobin A1C 5.9 % (4.5-6.2)
== END 2024-05-30 10:23 | disposition home or self-care (01) ==
LOC: LAB 10:22
PROVIDERS: PCP Family Medicine; Visit Provider Family Medicine
DX: E78.5 Hyperlipidemia, unspecified (principal); I10 Essential (primary) hypertension; F41.9 Anxiety disorder, unspecified; E03.9 Hypothyroidism, unspecified; E11.65 Type 2 diabetes mellitus with hyperglycemia
CPT/HCPCS: 36415; 80053; 80061; 83036; 84436; 84443; 84481; 85025

== ENCOUNTER 2024-10-21 13:02 | Outpatient (OUT) | payer MEDICARE, SELFPAY ==
--- NOTE | 2024-10-21 13:04 | MM_ITS ---
Patient Name: RAJ SOLOMON MR#: [id number] : 1955 Exam Date: 10/21/2024 Ordering Doctor: DR LALA GONCALVES . RADIOLOGY REPORT PROCEDURE: MM TOMOSYNTHESIS SCREENING BI COMPARISON: MM TOMOSYNTHESIS SCREENING BI, 10/18/2023. MG MAMM SCREEN 3D SERINA CAD, 09/21/2022. MG MAMM SCREEN 3D SERINA CAD, 08/25/2021. MG MAMM SERINA SCRN W CAD DIG, 04/24/2014. INDICATIONS: Screening Calculator Name NCI Breast Cancer Risk Assessment Tool 5 Year Breast Cancer Risk 3.30% Lifetime Breast Cancer Risk 10.40% Personal Breast Cancer No Personal Ovarian Cancer No Treatments None Family Cancers Niece with breast cancer at age 53; Aunt-maternal with ovarian cancer at age 60; Mother with breast cancer at age ~42; Aunt-paternal with breast cancer at age ~55; Brother with lung cancer at age 62. LOCATION: [facility] BREAST COMPOSITION: The breasts are almost entirely fatty. FINDINGS: DIAGNOSTIC CATEGORY 2--BENIGN FINDING: RIGHT BREAST: No significant suspicious finding. No significant change has occurred. LEFT BREAST: No significant suspicious finding. Scattered benign-appearing lymph nodes are present. No significant change has occurred. RECOMMENDATIONS: ROUTINE MAMMOGRAM AND CLINICAL EVALUATION IN 12 MONTHS. PLEASE NOTE: A NORMAL MAMMOGRAM DOES NOT EXCLUDE THE POSSIBILITY OF BREAST CANCER. A CLINICALLY SUSPICIOUS PALPABLE LUMP SHOULD BE BIOPSIED. Dictated by: Matthew Reynoso M.D. on 10/21/2024 at 17:08 Approved by: Matthew Reynoso M.D. on 10/21/2024 at 17:12
== END 2024-10-21 13:03 | disposition home or self-care (01) ==
LOC: MAMMO 13:02
PROVIDERS: PCP Family Medicine; Visit Provider Family Medicine
DX: Z12.31 Encounter for screening mammogram for malignant neoplasm of breast (principal); Z80.3 Family history of malignant neoplasm of breast; Z80.41 Family history of malignant neoplasm of ovary; Z80.1 Family history of malignant neoplasm of trachea, bronchus and lung
CPT/HCPCS: 77063; 77067

== ENCOUNTER 2025-01-13 11:13 | Outpatient (OUT) | payer MEDICARE, SELFPAY ==
--- NOTE | 2025-01-13 11:35 | XR_ITS ---
[address] [address] Patient Name: RAJ SOLOMON MRN: [id number] date: 1955 Sex: F Assigned Patient Location: LAB Current Patient Location: LAB Accession/Order Number: [id number] Exam Date: 01/13/2025 14:46 Report Date: 01/13/2025 14:47 At the request of: LALA GONCALVES MD Procedure: XR knee RT 3V RIGHT KNEE - 3 views CLINICAL HISTORY: Knee Osteoarthritis COMPARISON: None FINDINGS: Moderate degenerative changes with patellofemoral joint space narrowing. No acute bony process. XR/XR knee RT 3V IMPRESSION: MODERATE DEGENERATIVE CHANGES OF THE RIGHT KNEE WITHOUT ACUTE BONY PROCESS. Impression dictated by: Fareed Nguyen Jr., D.O.01/13/2025 2:47 PM Dictation Location: [place] [address] Electronically authenticated by: [id number] Y Date: 01/13/2025 14:47
--- OUTSIDE RECORDS SUMMARY | 2025-01-13 11:38 | XMS_ITS | CCD ---
Author Organization [facility] CliniSymn Care Team Providers Care Exhibit Artist Name Role Phone ELATTAR, OSAMA Admitting Unavailable ELATTAR, OSAMA Attending Unavailable LALA WATSON Primary Care Unavailable SELF, REFERRED Referring Unavailable DC Procedure Practitioner Unavailab le KIMBERLYN, OSAMA Surgeon Unavailable DC Procedure Practitioner Unavailab AYANNA Back Surgeon Unavailable ADILENE LIU Referring Unavailable LALA WATSON Primary Care Unavailable ELATTARSTONEMA Attending Unavailable ELATTAR, OSAMA Admitting Unavailable DC Procedure Practitioner Unavailab le ELATTAR, OSAMA Surgeon Unavailable ELATTAR, OSAMA Admitting Unavailable KIMBERLYN, STONEMA Attending Unavailable LALA WATSON Referring Unavailable LALA WATSON Primary Care Unavailable DC Procedure Practitioner Unavailab thelma SOFIA, KRISHNA Surgeon Unavailable Lala Watson Primary Care Provider [phone] Lala Watson MD Primary Care Provider [phone] LALA WATSON Attending Unavailable SACHA, DR [...] Referring Unavailable LALA WATSON Primary Care Unavailable Lala Watson MD Primary Care Provider [phone] Medications Current Medications Medication Drug Class(es) Dates Sig (Normalized) Sig (Original) carvedilol 6.25 mg oral tablet (5 sources) alpha-Adrenergic Bryant, beta-Adrenergic Bryant Start: 08-01-2022 take 1 tablet by mouth twice daily carvedilol (COREG) 6.25 MG tablet TAKE 1 TABLET BY MOUTH TWICE A DAY 0 08/01/2022 Active cholecalciferol 0.05 mg oral capsule (3 sources) Vitamin D Start: 08-11-2022 take 1 capsule by mouth once daily Cholecalciferol (VITAMIN D3) 50 MCG (1999) CAPS TAKE 1 CAPSULE BY MOUTH EVERY DAY 0 08/11/2022 Active clotrimazole 10 mg/ml topical cream (1 source) Azole Antifungal Start: 05-14-2024 End: 05-21-2024 clotrimazole (LOTRIMIN AF) 1 % cream Indications: Vulvar irritation Apply topically 2 times daily. 1 each 1 05/14/2024 05/21/2024 Active cyclobenzaprine hydrochloride 10 mg oral tablet (6 sources) Muscle Relaxant Start: 03-17-2021 take 2 tablets by mouth at bedtime cyclobenzaprine 10 mg Tab 20 mg = 2 tab(s), Oral, Bedtime Start Date: 03/17/21 Status: Ordered Start: 03-15-2014 cyclobenzaprin e (FLEXERIL) 10 MG tablet diclofenac sodium 75 mg delayed release oral tablet (4 sources) Nonsteroidal Anti-inflammatory Drug Start: 05-08-2024 take 1 tablet by mouth twice daily as needed diclofenac (VOLTAREN) 75 MG EC tablet Take 1 tablet by mouth 2 times daily as needed 0 05/08/2024 Active Start: 08-31-2023 take 1 tablet by pita th twice daily diclofenac sodium 75 mg Oral EC Tab 75 mg = 1 tab(s), Oral, BID, Refills(s) 0 Start Date: 08/31/23 Status: Ordered levothyroxine sodium 0.025 mg oral tablet (2 sources) l-Thyroxine take 1 tablet by mouth once daily levothyroxine (SYNTHROID) 25 MCG tablet Take 1 tablet by mouth Daily Pt unsure of dosage 0 Active liothyronine sodium 0.005 mg oral tablet (2 sources) l-Triiodothyronine Start: liothyronine (CYTOMEL) 5 MCG tablet TAKE 2 TABLETS BY MOT ON AN EMPTY STOMACH ONCE A DAY 0 03/07/2024 Active lisinopril 20 mg oral tablet (6 sources) Angiotensin Converting Enzyme Inhibitor Start: lisinopril (PRINIVIL;ZESTRIL) 20 MG tablet 2 tablets 0 05/04/2016 Active lorcaserin hydrochloride 10 mg oral tablet (1 source) Serotonin-2c Receptor Agonist Start: take 1 tablet by mouth twice daily Lorcaserin HCl 10 MG TABS Indications: Obesity (BMI 30.0-34.9) Take 1 tablet by mouth 2 times daily 60 tablet 3 04/28/2015 Active pantoprazole 40 mg delayed release oral tablet (6 sources) Proton Pump Inhibitor Start: pantoprazole (PROTONIX) 40 MG tablet PARoxetine hydrochloride 40 mg oral tablet (6 sources) Serotonin Reuptake Inhibitor Start: PARoxetine (PAXIL) 40 MG tablet phentermine hydrochloride 37.5 mg oral tablet (1 source) Sympathomimetic Amine Anorectic Start: End: take 1 tablet by mouth once daily before breakfast phentermine (ADIPEX-P) 37.5 MG tablet Indications: Obesity (BMI 30.0-34.9) Take 1 tablet by mouth every morning (before breakfast) for 30 days. 30 tablet 0 08/22/2022 09/21/2022 Active simvastatin 20 mg oral tablet (6 sources) HMG-CoA Reductase Inhibitor Start: simvastatin (ZOCOR) 20 MG tablet zolpidem tartrate 10 mg oral tablet (6 sources) gamma-Aminobutyric Acid-ergic Agonist Start: zolpidem (AMBIEN) 10 MG tablet Problems Active Problems Problem Classification Problem Date Documented Da te Episodic/Chronic Abdominal hernia (2 sources) Hiatal hernia 03-17-2021 Episodic Abdominal pain (3 sources) Right lower quadrant pain; Translations: [Left lower quadrant pain] Onset: 05-23-2024 05-23-2024 Episodic Allergic reactions (2 sources) Pressure [...] hypertension (2 sources) Hypertensive disorder 03-17-2021 Chronic Gout and other crystal arthropathies (3 sources) [...] Translations: [OTHER ABNORMAL GLUCOSE] Onset: 05-04-2022 Episodic Fracture of upper limb (4 sources) Closed fracture of shaft of humerus; Translations: [Closed fracture of shoulder] Onset: 09-04-2018 11-16-2022 Episodic Other connective tissue disease (1 source) Achilles tendinitis, unspecified leg; Translations: [ACHILLES TENDINITIS UNSPECIFIED LEG] Onset: 05-04-2022 Episodic Other lower respiratory disease (1 source) Dyspnea, unspecified; Translations: [DYSPNEA UNSPECIFIED] Onset: 05-04-2022 Episodic Residual codes; unclassified (1 source) Insomnia, unspecified; Translations: [INSOMNIA UNSPECIFIED] Onset: 05-04-2022 Episodic Residual codes; unclassified (2 sources) Family history of breast cancer; Translations: [Family history of malignant neoplasm of breast] Onset: 05-25-2019 05-14-2024 Episodic Unclassified (2 sources) Rupture of rotator [...] Ryan Hoyt MD 05/24/24 Final result Normal [facility] CBC with Auto Differentialon 05-23-2024 Basophils (Bld) [#/Vol] 0.05 10*3/uL [facility] Basophils/100 WBC (Bld) 1 % 0 - 2 % [facility] Eosinophils (Bld) [#/Vol] 0.11 10*3/uL [facility] Eosinophils/100 WBC (Bld) 1 % 1 - 4 % [facility] Erythrocyte distribution width (RBC) [Ratio] 12.3 % 11.8 - 14.4 % [facility] Hematocrit (Bld) [Volume fraction] 36.4 % 36.3 - 47.1 % [facility] Hemoglobin (Bld) [Mass/Vol] 11.8 g/dL Low 11.9 - 15.1 g/dL [facility] Immature granulocytes (Bld) [#/Vol] 0.03 10*3/uL [facility] Immature granulocytes/100 WBC (Bld) 0 % 0 [facility] Interpretation and review of laboratory results Abnormal [facility] Lymphocytes/100 WBC (Bld) 28 % 24 - 43 % [facility] Lymphocytes/100 WBC (Bld) 2.73 % [facility] MCH (RBC) [Entitic mass] 31.9 pg 25.2 - 33.5 pg [facility] MCHC (RBC) [Mass/Vol] 32.4 g/dL 28.4 - 34.8 g/dL [facility] MCV (RBC) [Entitic vol] 98.4 fL 82.6 - 102.9 fL [facility] Monocytes/100 WBC (Bld) 6 % 3 - 12 % [facility] Monocytes/100 WBC (Bld) 0.62 % [facility] Neutrophils/100 WBC (Bld) 64 % 36 - 65 % [facility] Nucleated RBC/100 WBC (Bld) [Ratio] 0.0 % 0.0 per 100 WBC [facility] Platelet mean volume (Bld) [Entitic vol] 8.2 fL 8.1 - 13.5 fL [facility] Platelets (Bld) [#/Vol] 323 10*3/uL [facility] RBC (Bld) [#/Vol] 3.70 10*6/uL Low 3.95 - 5.1 1 m/uL [facility] Segmented neutrophils/100 WBC (Bld) 6.29 % [facility] WBC other (Bld) [#/Vol] 9.8 [facility] CBC with Diffon 05-23-2024 Abs. Basophil 0.05 k/uL Normal 0.00-0.20 [facility] Comment on above: Performed By: #### C P, CDP #### [facility] [address] [place] [address] [place] [id number] [employer] Tester: Collette Zhang MD Abs.Imm.Granulocyte 0.03 k/uL Normal 0.00-0.30 [facility] Comment on above: Performed By: #### C P, CDP #### [address] [place] [address] [employer] Tester: Collette Zhang MD Abs.Neutrophil (Seg) 6.29 k/uL Normal 1.50-8.10 [facility] Comment on above: Performed By: #### C P, CDP #### [address] [place], [facility]83 [employer] Tester: Collette Zhang MD Basophils/100 WBC (Bld) 1 % Normal 0-2 [facility] Comment on above: Performed By: #### C P, CDP #### [address] [place] [id number] [employer] Tester: Collette Zhang MD Eosinophils (Bld) [#/Vol] 0.11 10*3/uL Normal 0.00-0.44 [facility] Comment on above: Performed By: #### C P, CDP #### [facility] [address] [place], [place] [address] [employer] Tester: Collette Zhang MD Eosinophils/100 WBC (Bld) 1 % Normal 1-4 [facility] Comment on above: Performed By: #### C P, CDP #### [facility] [address] [place], [place] [address] [employer] Tester: Collette Zhang MD Erythrocyte distribution width (RBC) [Ratio] 12.3 % Normal 11.8-14.4 [facility] Comment on above: Performed By: #### C P, CDP #### [address] [place], [place] [address] [employer] Tester: Collette Zhang MD Hematocrit (Bld) [Volume fraction] 36.4 % Normal 36.3-47.1 [facility] Comment on above: Performed By: #### C P, CDP #### [address] [place], [facility]83 [employer] Tester: Collette Zhang MD Hemoglobin (Bld) [Mass/Vol] 11.8 g/dL Low 11.9-15.1 [facility] Comment on above: Performed By: #### C P, CDP #### [address] [place], [facility]83 [employer] Tester: Collette Zhang MD Immature granulocytes/100 WBC (Bld) 0 % Normal 0 [facility] Comment on above: Performed By: #### C P, CDP #### [address] [place] [address] [employer] Tester: Collette Zhang MD Lymphocytes (Bld) [#/Vol] 2.73 10*3/uL Normal 1.10-3.70 [facility] Comment on above: Performed By: #### C P, CDP #### [facility] [address] [place], [place] [id number] [employer] Tester: Collette Zhang MD Lymphocytes/100 WBC (Bld) 28 % Normal 24-43 [facility] Comment on above: Performed By: #### C P, CDP #### [facility] [address] [place], [place] [id number] [employer] Tester: Collette Zhang MD MCH (RBC) [Entitic mass] 31.9 pg Normal 25.2-33.5 [facility] Comment on above: Performed By: #### C P, CDP #### [address] [place], [place] 8054383 [employer] Tester: Collette Zhang MD MCHC (RBC) [Mass/Vol] 32.4 g/dL Normal 28.4-34.8 [facility] Comment on above: Performed By: #### C P, CDP #### [address] [place], [place] [id number] [employer] Tester: Collette Zhang MD MCV (RBC) [Entitic vol] 98.4 fL Normal 82.6-102.9 [facility] Comment on above: Performed By: #### C P, CDP #### [address] [place], [place] [id number] [employer] Tester: Collette Zhang MD Monocytes (Bld) [#/Vol] 0.62 10*3/uL Normal 0.10-1.20 [facility] Comment on above: Performed By: #### C P, CDP #### [address] [place], [place] [id number] [employer] Tester: Collette Zhang MD Monocytes/100 WBC (Bld) 6 % Normal 3-12 [facility] Comment on above: Performed By: #### C P, CDP #### [address] [place], [place] [id number] [employer] Tester: Collette Zhang MD Neutrophil (Seg) 64 % Normal 36-65 [facility] Comment on above: Performed By: #### C P, CDP #### [facility] [address] [place] [address] Dr. [place], [place] [id number] [employer] Tester: Collette Zhang MD NRBC Automated 0.0 per 100 WBC Normal 0.0 [facility] Comment on above: Performed By: #### C P, CDP #### [address] [place], [place] 4573483 [employer] Tester: Collette Zhang MD Platelet mean volume (Bld) [Entitic vol] 8.2 fL Normal 8.1-13.5 [facility] Comment on above: Performed By: #### C P, CDP #### [address] [place], [place] 2790383 [employer] Tester: Collette Zhang MD Platelets (Bld) [#/Vol] 323 10*3/uL Normal 138-453 [facility] Comment on above: Performed By: #### C P, CDP #### [address] [place], [place] [id number] [employer] Tester: Collette Zhang MD RBC (Bld) [#/Vol] 3.70 10*6/uL Low 3.95-5.11 [facility] Comment on above: Performed By: #### C P, CDP #### [address] [place], [place] 9463283 [employer] Tester: Collette Zhang MD WBC (Bld) [#/Vol] 9.8 10*3/uL Normal 3.5-11.3 [facility] Comment on above: Performed By: #### C P, CDP #### [address] [place] [address] [employer] Tester: Collette Zhang MD Comp Metabolic Profon 2023 Albumin [Mass/Vol] 4.4 g/dL Normal 3.5-5.2 [facility] Comment on above: Performed By: #### C P, CDP #### [facility] [address] [place], [place] [phone] [employer] Tester: Collette Zhang MD Albumin/Glob Ratio 1.6 Normal 1.0-2.5 [facility] Comment on above: Performed By: #### C P, CDP #### [facility] [address] [place], [place] 3982383 [employer] Tester: Collette Zhang MD Alkaline Phos 95 U/L Normal 35-104 [facility] Comment on above: Performed By: #### C P, CDP #### [facility] [address] [place], [place] 835[address]83 [employer] Tester: Collette Zhang MD ALT [Catalytic activity/Vol] 17 U/L Normal 5-33 [facility] Comment on above: Performed By: #### C P, CDP #### [address] [place], [place] 5709983 [employer] Tester: Collette Zhang MD Anion gap [Moles/Vol] 10 mmol/L Normal 9-17 [facility] Comment on above: Performed By: #### C P, CDP #### [facility] [address] [place] [address] [employer] Tester: Collette Zhang MD AST [Catalytic activity/Vol] 18 U/L Normal <32 [facility] Comment on above: Performed By: #### C P, CDP #### [facility] [address] [place], [place] 8931283 [employer] Tester: Collette Zhang MD Bilirubin [Mass/Vol] 0.5 mg/dL Normal 0.3-1.2 [facility] Comment on above: Performed By: #### C P, CDP #### [facility] [address] [place] [address] [employer] Tester: Collette Zhang MD BUN/CRE Ratio 18 Normal 9-20 [facility] Comment on above: Performed By: #### C P, CDP #### [facility] [address] [place], [place] [address]3 [employer] Tester: Collette Zhang MD Calcium [Mass/Vol] 9.5 mg/dL Normal 8.6-10.4 [facility] Comment on above: Performed By: #### C P, CDP #### [facility] [address] [place], [place] 4856483 [employer] Tester: Collette Zhang MD Chloride [Moles/Vol] 97 mmol/L Low 98-107 [facility] Comment on above: Performed By: #### C P, CDP #### [facility] [address] [place] [address] [employer] Tester: Collette Zhang MD CO2 [Moles/Vol] 28 mmol/L Normal 20-31 [facility] Comment on above: Performed By: #### C P, CDP #### [facility] [address] [place] [address] [employer] Tester: Collette Zhang MD Creatinine [Mass/Vol] 0.9 mg/dL Normal 0.5-0.9 [facility] Comment on above: Performed By: #### C P, CDP #### [facility] [address] [place] [address] [employer] Tester: Collette Zhang MD GFR/1.73 sq M.predicted among non-blacks MDRD (S/P/Bld) [Vol rate/Area] 70 mL/min/{1.73_m2} Normal >60 [facility] Comment on above: Result Comment: These results [...] Performed By: #### C P, CDP #### [facility] [address] [place], [place] 1603283 [employer] Tester: Collette Zhang MD Glucose [Mass/Vol] 105 mg/dL High 70-99 [facility] Comment on above: Performed By: #### C P, CDP #### [facility] [address] [place], [place] 5829383 [employer] Tester: Collette Zhang MD Potassium [Moles/Vol] 4.8 mmol/L Normal 3.7-5.3 [facility] Comment on above: Performed By: #### C P, CDP #### [address] [place], [place] 4152583 [employer] Tester: Collette Zhang MD Protein [Mass/Vol] 7.2 g/dL Normal 6.4-8.3 [facility] Comment on above: Performed By: #### C P, CDP #### [address] [place], [place] 7834683 [employer] Tester: Collette Zhang MD Sodium [Moles/Vol] 135 mmol/L Normal 135-144 [facility] Comment on above: Performed By: #### C P, CDP #### [facility] [address] [place] [address] [employer] Tester: Collette Zhnag MD Urea nitrogen [Mass/Vol] 16 mg/dL Normal 8-23 [facility] Comment on above: Performed By: #### C P, CDP #### [address] [place], [place] 9693183 [employer] Tester: Collette Zhang MD Comprehensive Metabolic Pane [facility] 05-23-2024 Albumin [Mass/Vol] 4.4 g/dL 3.5 - 5.2 g/dL [facility] Albumin/Globulin [Mass ratio] 1.6 {ratio} 1.0 - 2.5 [facility] ALP [Catalytic activity/Vol] 95 U/L 35 - 104 U/L [facility] ALT [Catalytic activity/Vol] 17 U/L 5 - 33 U/L [facility] Anion gap [Moles/Vol] 10 mmol/L 9 - 17 mmol/L [facility] AST [Catalytic activity/Vol] 18 U/L NINF - 32 U/L [facility] Bilirubin [Mass/Vol] 0.5 mg/dL 0.3 - 1 .2 mg/dL [facility] Calcium [Mass/Vol] 9.5 mg/dL 8.6 - 10. 4 mg/dL [facility] Chloride [Moles/Vol] 97 mmol/L Low 98 - 10 7 mmol/L [facility] CO2 [Moles/Vol] 28 mmol/L 20 - 31 mmol/L [facility] Creatinine [Mass/Vol] 0.9 mg/dL 0.5 - 0.9 mg/dL [facility] Est, Glom Filt Rate 70 - PINF [facility] Comment on above: These results are not intended for use [...] following therapy that affects renal tubular secretion. Glucose [Mass/Vol] 105 mg/dL High 70 - 99 mg/dL [facility] Interpretation and review of laboratory results Abnormal [facility] Potassium [Moles/Vol] 4.8 mmol/L 3.7 - 5.3 mmol/L [facility] Protein [Mass/Vol] 7.2 g/dL 6.4 - 8.3 g/dL [facility] Sodium [Moles/Vol] 135 mmol/L 135 - 144 mmol/L [facility] Urea nitrogen [Mass/Vol] 16 mg/dL 8 - 23 mg/dL [facility] Urea nitrogen/Creatinine [Mass ratio] 18 mg/mg 9 - 20 [facility] Microscopic Urinalysison Bacteria LM Ql (Urine sed) RARE None [facility] Epithelial cells LM.HPF (Urine sed) [#/Area] 0 TO 2 [facility] RBC LM.HPF (Urine sed) [#/Area] 0 TO 2 [facility] WBC LM.HPF (Urine sed) [#/Area] 0 TO 2 [facility] UA w/Reflex Cultureon 2023 Bilirubin, SemiQt,Ur Negative Normal NEG [facility] Comment on above: Performed By: #### U MICAO, UAX #### [facility] [address] [place] [address] [employer] Tester: Collette Zhang MD Blood, Urine Negative Normal NEG [facility] Comment on above: Performed By: #### U MICAO, UAX #### [facility] [address] [place] [address] [employer] Tester: Collette Zhang MD Clarity (U) Clear Normal CLEAR [facility] Comment on above: Performed By: #### U MICAO, UAX #### [facility] [address] [place] [address] [employer] Tester: Collette Zhang MD Color (U) Yellow Normal YEL [facility] Comment on above: Performed By: #### U MICAO, UAX #### [facility] [address] [place] [address] [employer] Tester: Collette Zhang MD Glucose Ql (U) Negative Normal NEG [facility] Comment on above: Performed By: #### U MICAO, UAX #### [facility] [address] [place] [address] [employer] Tester: Collette Zhang MD Ketones Ql (U) Negative Normal NEG [facility] Comment on above: Performed By: #### U MICAO, UAX #### [facility] [address] [place], [place] [id number] [employer] Tester: Collette Zhang MD Leukocyte esterase Test strip Ql (U) Negative Normal NEG [facility] Comment on above: Performed By: #### U MICAO, UAX #### [facility] [address] [place], [place] [id number] [employer] Tester: Collette Zhang MD Nitrite,Ur Negative Normal NEG [facility] Comment on above: Performed By: #### U MICAO, UAX #### [facility] [address] [place] [address] Dr. [place], [place] 3076383 [employer] Tester: Collette Zhang MD PH,Ur 6.0 Normal 5.0-9.0 [facility] Comment on above: Performed By: #### U MICAO, UAX #### [facility] [address] [place] [address] Dr. [place], [place] [id number] [employer] Tester: Collette Zhang MD Protein Ql (U) Negative Normal NEG [facility] Comment on above: Performed By: #### U MICAO, UAX #### [facility] [address] [place] [address] Dr. [place], [place] [id number] [employer] Tester: Collette Zhang MD Spec. [place],Ur 1.010 Normal 1.010-1.020 [facility] Comment on above: Performed By: #### U MICAO, UAX #### [facility] [address] [place], [place] 773[address]83 [employer] Tester: Collette Zhang MD Urobilinogen,Ur Normal Normal 0.0-1.0 [facility] Comment on above: Performed By: #### U MICAO, UAX #### [facility] [address] [place], [place] [phone] [employer] Tester: Collette Zhang MD Urinalysis with Reflex to Cu ltureon 05-23-2024 Bilirubin Ql (U) Negative NEGATIVE [facility] Clarity (U) Clear Clear [facility] Color (U) Yellow Yellow [facility] Glucose Test strip (U) [Mass/Vol] Negative NEGATIVE mg/dL [facility] Hemoglobin Auto test strip Ql (U) Negative NEGATIVE [facility] Ketones (U) [Mass/Vol] Negative NEGATIVE mg/dL [facility] Leukocyte esterase Test strip Ql (U) Negative NEGATIVE [facility] Nitrite Ql (U) Negative NEGATIVE [facility] pH (U) 6.0 [pH] 5.0 - 9.0 [facility] Protein (U) [Mass/Vol] Negative NEGATIVE mg/dL [facility] Specific gravity (U) [Rel density] 1.010 1.010 - 1.020 [facility] Urobilinogen Qn (U) Normal 0.0 - 1. 0 EU/dL [facility] Urinalysis,Microon 4 Bacteria RARE Normal NONE [facility] Comment on above: Performed By: #### U KENDALLO UAX #### [facility] [address] [place] [address] [employer] Tester: Collette Zhang MD Epithelial cells LM Ql (Urine sed) 0 TO 2 Normal 0-25 [facility] Comment on above: Performed By: #### U KENDALLO, UAX #### [facility] [facility] [address] [place] [address] Rocket Engine Tester: Collette Zhang MD Urine RBC's 0 TO 2 Normal 0-2 [facility] Comment on above: Performed By: #### U MICAO, UAX #### [facility] [address] [place] [address] Rocket Engine Tester: Collette Zhang MD Urine WBC's 0 TO 2 Normal 0-5 [facility] Comment on above: Performed By: #### U MICAO, UAX #### [facility] [address] [place] [address] Rocket Engine Tester: Collette Zhang MD Cytology Reporton 05-14-2024 Cytology report Cyto stain.thin prep Doc (Cvx/Vag) (NOTE) Path Number: [id number] DIAGNOSIS Imaged ThinPrep Pap - Cervical (1 monolayer slide): Specimen Adequacy: Satisfactory for evaluation. -Endocervical/transfor mation zone component is absent. Descriptive Diagnosis: Negative for intraepithelial lesion or malignancy. Comments: Specimen was screened at [facility], [address] [place] [address] Cytotech Screener: PT Electronically Signed Out Barbi Villalba pt/05/20/2024 Source of Specimen: A: Imaged ThinPrep Pap - Cervical (1 monolayer slide) HPV Reflex?............... 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 [facility] Rec: [id number] [facility] ANATOMIC PATHOLOGY [address] [facility]. [place], [place] [address] Normal [facility] Ambulatory Visit Summaryon 1 12-11-2022 Ambulatory Visit Summary MARYAM SOLOMON :1955 Visit Date:10/10/2023 Ambulatory Visit Instructions Your Care Team Attending Physician - YOHANA NARAYAN, Eron Huffman Primary Care Physician - Hoy MD, Lala This Is Your Medications List carvedilol (carvedilol [...] choosing us for your care. Normal [facility] General Surgery Office/Clini c Noteon 10-10-2023 [...] virus vaccine, inactivated 09/21/2022 Recorded SARS-CoV-2 (COVID-19) [id number].[id number] 09/21/2022 Recorded SARSCoV2 mRNA(zsdawmlht-ixiw-bv cros) vac 03/23/2022 Recorded SARS-CoV-2 (COVID-19) mRNA BNT-162b2 vax 08/09/2021 Recorded 2023-08-31: [id number] SARS-CoV-2 (COVID-19) mRNA BNT-162b2 vax 01/12/2021 Recorded SARS-CoV-2 (COVID-19) mRNA BNT-162b2 vax 12/21/2020 Recorded Normal [facility] Comment on above: Result Comment: Elec tronically Signed By: YOHANA NARAYAN, Eron Buenobr\Date and Time Signed: 10/10/23 14:58 EST Reminderson 10-10-2023 Reminders - From: Brigette Arce LPN To: N - Clinical; Sent: 10/10/2023 14:44:13 EST Show up: 08/28/2033 07:00:00 EST Subject: colonoscopy recall Due Date/Time: 09/27/2033 07:00:00 EST Reminder/Recall Patient due for screening colonoscopy 09/27/2033. Normal [facility] Pathology Noteon 10-04-2023 Pathology Note [id number]#1. 00TIFF [facility] Outside Colonoscopyon 2022 Outside Colonoscopy [id number] 20 [id number]#1.0 0TIFF [facility] Consent for Procedure/Surger yon 09-06-2023 Consent for Procedure/Surgery [id number]#1. 00TIFF [facility] Facesheeton 09-06-2023 Facesheet [id number] 03 [id number]#1. 00TIFF [facility] Ambulatory Visit Summaryon 1 11-05-2022 Ambulatory Visit Summary MARYAM SOLOMON :1955 Visit Date:09/05/2023 Ambulatory Visit Instructions Your Diagnosis Positive colorectal cancer screening using Cologuard test Your Care Team Attending Physician - Eron [...] for choosing us for your care. Normal [facility] Lab Reportson 08-31-2023 Lab Reports [id number]#1.0 0TIFF Normal [facility] Consultation Noteon 08-28-20 23 Consultation Note [id number]#1.0 0TIFF Normal [facility] Physician Referralon 023 Physician Referral [id number]#1.0 0CD:127 Normal [facility] MG MAMM SCREEN 3D SERINA CADon 09-21-2022 MG MAMM SCREEN 3D SERINA CAD Patient: MARYAM SOLOMON Exam Date: 09/21/2022 : 1955 Gender:F Ordering : DR JANUSZ FLORES Admission #: [id number] Family : Order #: [id number] CLICK HERE TO VIEW EXAM RADIOLOGY REPORT [...] lung cancer at age 62. LOCATION: [facility] BREAST COMPOSITION: Almost entirely fatty. FINDINGS: [...] M.D. on 09/21/2022 at 15:46 Normal [facility] CBC AUTO DIFFon 05-02-2022 BASO # 0.1 103/ul Normal 0.0-0.[address] [facility] Comment on above: Performed By: #### C BC #### [facility] [address] [address] [address] Sona Cortez Basophils/100 WBC (Bld) 0.7 % Normal 0.2-2.0 [facility] Comment on above: Performed By: #### C BC #### [facility] [address] [address] [address] Sona Cortez EO # 0.2 103/ul Normal 0.0-0.[address] [facility] Comment on above: Performed By: #### C BC #### [facility] [address] [place] [address] Dr. Sona Cortez Eosinophils/100 WBC (Bld) 2.1 % Normal 0.9-7.[address] [facility] Comment on above: Performed By: #### C BC #### [facility] [address] [place] [address] Dr. Sona Cortez Erythrocyte distribution width (RBC) [Ratio] 12.1 % Normal 11.0-15.[address] [facility] Comment on above: Performed By: #### C BC #### [facility] [address] [place] [address] Dr. Sona Cortez Hematocrit (Bld) [Volume fraction] 37.6 % Normal 36.0-48.[address] [facility] Comment on above: Performed By: #### C BC #### [facility] [address] [place] [address] Dr. Sona Cortez Hemoglobin (Bld) [Mass/Vol] 12.5 g/dL Normal 12.0-16.[address] [facility] Comment on above: Performed By: #### C BC #### [facility] [address] [place] [address] Dr. Sona Cortez IG # 0.01 10e3/ul Normal 0.00-0.03 [facility] Comment on above: Performed By: #### C BC #### [facility] [address] [place] [address] Dr. Sona Cortez IG % 0.1 % Normal 0.0-0.[address] [facility] Comment on above: Performed By: #### C BC #### [facility] [address] [place] [address] Dr. Sona Cortez LYMPH # 2.0 103/ul Normal 1.2-3.8 [facility] Comment on above: Performed By: #### C BC #### [facility] [address] [place] [address] Dr. Sona Cortez Lymphocytes/100 WBC (Bld) 28.3 % Normal 20.5-60.[address] [facility] Comment on above: Performed By: #### C BC #### [facility] [address] [place] [address] Dr. Sona Cortez MANUAL DIFF REQ NO Normal [facility] Comment on above: Performed By: #### C BC #### [facility] [address] [place] [address] Dr. Sona Cortez MCH (RBC) [Entitic mass] 31.9 pg Normal 26.7-34.[address] [facility] Comment on above: Performed By: #### C BC #### [facility] [address] [place] [address] Dr. Sona Cortez MCHC (RBC) [Mass/Vol] 33.2 g/dL Normal 29.9-35.2 [facility] Comment on above: Performed By: #### C BC #### [facility] [address] [place] [address] Dr. Sona Cortez MCV (RBC) [Entitic vol] 95.9 fL Normal 81.0-99.0 [facility] Comment on above: Performed By: #### C BC #### [facility] [address] [place] [address] Dr. Sona Cortez MONO # 0.4 103/ul Normal 0.3-0.8 [facility] Comment on above: Performed By: #### C BC #### [facility] [address] [address] [address] Sona Cortez Monocytes/100 WBC (Bld) 5.7 % Normal 1.7-12.0 [facility] Comment on above: Performed By: #### C BC #### [facility] [address] [place] [address] Dr. Sona Cortez NEUT # 4.4 103/ul Normal 1.4-6.5 [facility] Comment on above: Performed By: #### C BC #### [facility] [address] [address] [address] Sona Cortez Neutrophils/100 WBC (Bld) 63.1 % Normal 43.0-75.0 [facility] Comment on above: Performed By: #### C BC #### [facility] [address] [place] [address] Dr. Sona Cortez Platelet mean volume (Bld) [Entitic vol] 8.5 fL Critically low 9.5-13.5 [facility] Comment on above: Performed By: #### C BC #### [facility] [address] [place] [address] Dr. Sona Cortez PLT 313 103/ul Normal 150-450 [facility] Comment on above: Performed By: #### C BC #### [facility] [address] [place] [address] Dr. Sona Cortez RBC 3.92 106/ul Critically low 4.20-5.40 [facility] Comment on above: Performed By: #### C BC #### [facility] [address] [address] [address] Sona Cortez WBC 7.0 103/ul Normal 4.0-11.0 [facility] Comment on above: Performed By: #### C BC #### [facility] [address] [place] [address] Dr. Sona Cortez FREE THYROXINE INDEX T7on FTI 2.31 Normal 1.30-4.50 [facility] Comment on above: Performed By: #### U ANNABELLE, T7, TSH, CMP, LIPID #### [facility] [address] [address] [address] Sona Cortez T3U 33.0 % Normal 30.0-39.[address] [facility] Comment on above: Performed By: #### U ANNABELLE, T7, TSH, CMP, LIPID #### [facility] [address] [address] [address] Sona Cortez T4 [Mass/Vol] 7.00 ug/dL Normal 4.80-13.90 [facility] Comment on above: Performed By: #### U ANNABELLE, T7, TSH, CMP, LIPID #### [facility] [address] [address] [address] Sona Cortez GLYCOHEMOGLOBIN A1Con 2021 ADA RECOMMENDATION SEE BELOW Normal [facility] [place] [facility] Comment on above: Result Comment: ADA RECOMMENDED LIMIT 4.0 - 6.0 ADA THERAPEUTIC TARGET < 7.0 ACTION SUGGESTED > 7.0 Performed By: #### A 1C #### [facility] [address] [address] [address] Sona Cortez Glucose [Mass/Vol] 131 mg/dL Normal [facility] Comment on above: Performed By: #### A 1C #### [facility] [address] [address] [address] Sona Cortez HbA1c (Bld) [Mass fraction] 6.2 % Normal 4.5-6.[address] [facility] Comment on above: Performed By: #### A 1C #### [facility] [address] [place] [address] Dr. Sona Cortez IRONon 05-02-2022 Iron [Mass/Vol] 98.0 ug/dL Normal 50.0-170.0 [facility] Comment on above: Performed By: #### V ITAD, IRON #### [facility] [address] [place] [address] Dr. Sona Cortez LIPID PROFILEon 05-02-2022 CHOL-HDL RATIO NORM SEE BELOW Normal [facility] Comment on above: Result Comment: 3.3 - 4.4 LOW RISK 4.4 - 7.1 AVERAGE RISK 7.1 - 11.0 MODERATE RISK >11.0 HIGH RISK Performed By: #### V ITAD, IRON #### [facility] [address] [address] [address] Sona Cortez Cholesterol [Mass/Vol] 187 mg/dL Normal <=[address] [facility] Comment on above: Performed By: #### V ITAD, IRON #### [facility] [address] [address] [address] Sona Cortez Cholesterol in HDL [Mass/Vol] 59 mg/dL Normal 40-[address] [facility] Comment on above: Performed By: #### V ITAD, IRON #### [facility] [address] [address] [address] Sona Cortez Cholesterol in LDL [Mass/Vol] 94.8 mg/dL Normal [facility] Comment on above: Performed By: #### V ITAD, IRON #### [facility] [address] [address] [address] Sona Cortez Cholesterol.total/Ch olesterol in HDL [Mass ratio] 3.2 {ratio} Normal [facility] Comment on above: Performed By: #### V ITAD, IRON #### [facility] [address] [address] [address] Sona Cortez HDL NORMAL > or = 60 mg/dl - LO W CARDIOVASCULAR RISK <40 mg/dl - HIGH CARDIOVASCULAR RISK Normal [facility] Comment on above: Performed By: #### V ITAD, IRON #### [facility] [address] [address] [address] Sona Cortez LDL CALC NORMAL SEE BELOW Normal [facility] Comment on above: Result Comment: <100 mg/dl OPTIMAL 100 - 129 mg/dl NEAR OR ABOVE OPTIMAL 130 - 159 mg/dl BORDERLINE HIGH 160 - 189 mg/dl HIGH >190 mg/dl VERY HIGH Performed By: #### V ITAD, IRON #### [facility] [address] [address] [address] Sona Cortez Triglyceride [Mass/Vol] 166 mg/dL Critically high <=[address] [facility] Comment on above: Performed By: #### V ITAD, IRON #### [facility] [address] [address] [address] Sona Cortez VLDL CALC 33.2 mg/dL Normal [facility] Comment on above: Performed By: #### V ITAD, IRON #### [facility] [address] [place] [address] Dr. Sona Cortez PROF 14(COMP METB)on 022 Albumin [Mass/Vol] 4.1 g/dL Normal 3.4-5.0 [facility] [place] [facility] Comment on above: Performed By: #### U ANNABELLE, T7, TSH, CMP, LIPID #### [facility] [address] [place] [address] Dr. Sona Cortez Albumin/Globulin [Mass ratio] 1.2 {ratio} Normal [facility] Comment on above: Performed By: #### U ANNABELLE, T7, TSH, CMP, LIPID #### [facility] [address] [place] [address] Dr. Sona Cortez ALP [Catalytic activity/Vol] 87 U/L Normal 46-[address] [facility] Comment on above: Performed By: #### U ANNABELLE, T7, TSH, CMP, LIPID #### [facility] [address] [place] [address] Dr. Sona Cortez ALT [Catalytic activity/Vol] 31 U/L Normal 14-[address] [facility] Comment on above: Performed By: #### U ANNABELLE, T7, TSH, CMP, LIPID #### [facility] [address] [place] [address] Dr. Sona Cortez Anion gap [Moles/Vol] 14.8 mmol/L Normal [facility] Comment on above: Performed By: #### U ANNABELLE, T7, TSH, CMP, LIPID #### [facility] [address] [place] [address] Dr. Sona Cortez AST [Catalytic activity/Vol] 17 U/L Normal 15-[address] [facility] Comment on above: Performed By: #### U ANNABELLE, T7, TSH, CMP, LIPID #### [facility] [address] [place] [address] Dr. Sona Cortez Bilirubin [Mass/Vol] 0.4 mg/dL Normal 0.2-1.[address] [facility] Comment on above: Performed By: #### U ANNABELLE, T7, TSH, CMP, LIPID #### [facility] [address] [address] [address] Sona Cortez Calcium [Mass/Vol] 9.1 mg/dL Normal 8.5-10.1 [facility] [place] [facility] Comment on above: Performed By: #### U ANNABELLE, T7, TSH, CMP, LIPID #### [facility] [address] [address] [address] Sona Cortez Chloride [Moles/Vol] 100 mmol/L Normal 98-[address] [facility] Comment on above: Performed By: #### U ANNABELLE, T7, TSH, CMP, LIPID #### [facility] [address] [place] [address] Dr. Sona Cortez CO2 [Moles/Vol] 27.4 mmol/L Normal 21.0-32.0 [facility] Comment on above: Performed By: #### U ANNABELLE, T7, TSH, CMP, LIPID #### [facility] [address] [place] [address] Dr. Sona Cortez Creatinine [Mass/Vol] 1.05 mg/dL Critically high 0.55-1.02 [facility] Comment on above: Performed By: #### U ANNABELLE, T7, TSH, CMP, LIPID #### [facility] [address] [place] [address] Dr. Sona Cortez EGFR-AF CITIZ[place] >60 Normal >=60 [facility] Comment on above: Performed By: #### U ANNABELLE, T7, TSH, CMP, LIPID #### [facility] [address] [place] [address] Dr. Sona Cortez EGFR-NON AF CITIZEN [place] 52 mL/min/1.73m2 Critically low >=60 [facility] Comment on above: Performed By: #### U ANNABELLE, T7, TSH, CMP, LIPID #### [facility] [address] [place] [address] Dr. Sona Cortez Globulin (S) [Mass/Vol] 3.5 g/dL Normal [facility] Comment on above: Performed By: #### U ANNABELLE, T7, TSH, CMP, LIPID #### [facility] [address] [address] [address] Sona Cortez Glucose [Mass/Vol] 149 mg/dL Critically high 74-106 T [facility] Comment on above: Performed By: #### U ANNABELLE, T7, TSH, CMP, LIPID #### [facility] [address] [address] [address] Sona Cortez Potassium [Moles/Vol] 4.2 mmol/L Normal 3.5-5.[address] [facility] Comment on above: Performed By: #### U ANNABELLE, T7, TSH, CMP, LIPID #### [facility] [address] [address] [address] Sona Cortez Protein [Mass/Vol] 7.6 g/dL Normal 6.4-8.2 [facility] [place] [facility] Comment on above: Performed By: #### U ANNABELLE, T7, TSH, CMP, LIPID #### [facility] [address] [place] [address] Dr. Sona Cortez Sodium [Moles/Vol] 138 mmol/L Normal 136-145 [facility] Comment on above: Performed By: #### U ANNABELLE, T7, TSH, CMP, LIPID #### [facility] [address] [place] [address] Dr. Sona Cortez Urea nitrogen [Mass/Vol] 17.0 mg/dL Normal 7.0-18.[address] [facility] Comment on above: Performed By: #### U ANNABELLE, T7, TSH, CMP, LIPID #### [facility] [address] [address] [address] Sona Cortez Urea nitrogen/Creatinine [Mass ratio] 16.2 mg/mg Normal [facility] Comment on above: Performed By: #### U ANNABELLE, T7, TSH, CMP, LIPID #### [facility] [address] [place] [address] Dr. Sona Cortez TSHon 05-02-2022 TSH 2.358 uIU/mL Normal 0.358-3.740 [facility] Comment on above: Performed By: #### U ANNABELLE, T7, TSH, CMP, LIPID #### [facility] [address] [address] [address] Sona Cortez URIC ACID SERUMon 05-02-2022 Urate [Mass/Vol] 5.2 mg/dL Normal 2.6-6.0 [facility] Comment on above: Performed By: #### U ANNABELLE, T7, TSH, CMP, LIPID #### [facility] [address] [address] [address] Sona Cortez VITAMIN D 25 OHon 05-02-2022 VIT D 25-OH 15.6 ng/mL Normal [facility] Comment on above: Performed By: #### V ITAD, IRON #### [facility] [address] [address] [address] Sona Cortez VIT D RANGES SEE BELOW Normal [facility] Comment on above: Result Comment: <20 ng/mL Vit D deficient 20 - <30 ng/mL Vit D insufficient 30 - 100 ng/mL Vit D sufficient >100 ng/mL Potential Toxicity Performed By: #### V ITAD, IRON #### [facility] [address] [address] [address] Sona Cortez Operative Reporton 9 Operative Report MR#: [id number] I [facility] Pt. Name: Maryam Solomon Room #: [id number] Discharge 08/03/2019 Date: Birthdate: 1955 OPERATIVE REPORT DATE OF SURGERY: 08/02/2019 SURGEON: Krishna Sofia MD INDUSTRIAL DESIGNER: Tirso Gonzales MD. PREOPERATIVE DIAGNOSIS: Right shoulder [...] the humeral head, and we used a conservation planner to make sure the stem was [...] Sofia MD Date Trans: 08/05/2019 01:24 A/macho [id number] cc: Lala Watson M.D. [address] [facility] [address] Normal [facility] BASIC METABOLIC PANELon 07-23 Calcium [Mass/Vol] 8.9 mg/dL Normal 8.6-10.3 [facility] Comment on above: Order Comment: No: D o not add to previous draw Performed By: #### 5 6101 #### [facility] [address] [facility] [place] [address], [facility] Chloride [Moles/Vol] 104 mmol/L Normal 98-107 [facility] Comment on above: Order Comment: No: D o not add to previous draw Performed By: #### 5 6101 #### [facility] [address] [facility] [place] [address], [place] CO2 [Moles/Vol] 30 mmol/L Normal 21-31 [facility] [place] Comment on above: Order Comment: No: D o not add to previous draw Performed By: #### 5 6101 #### [facility] [address] [place] [address], [place] Creatinine [Mass/Vol] 0.94 mg/dL Normal 0.60-1.20 [facility] Comment on above: Order Comment: No: D o not add to previous draw Performed By: #### 5 6101 #### [facility] [address] [place] [address], [place] GFR/1.73 sq M predicted among blacks MDRD (S/P/Bld) [Vol rate/Area] mL/min/{1.73_m2} Normal >60 [facility] Comment on above: Order Comment: No: D o not add to previous draw Performed By: #### 5 6101 #### [facility] [address] [place] [address], [place] GFR/1.73 sq M predicted among non-blacks MDRD (S/P/Bld) [Vol rate/Area] mL/min/{1.73_m2} Normal >60 [facility] Comment on above: Order Comment: No: D o not add to previous draw Performed By: #### 5 6101 #### [facility] [address] [place] [address], [place] Glucose [Mass/Vol] 136 mg/dL High 70-100 [facility] Comment on above: Order Comment: No: D o not add to previous draw Performed By: #### 5 6101 #### [facility] [address] [place] [address], [place] Potassium [Moles/Vol] 4.4 mmol/L Normal 3.5-5.1 [facility] Comment on above: Order Comment: No: D o not add to previous draw Performed By: #### 5 6101 #### [facility] [address] [place] [address], [facility] Sodium [Moles/Vol] 141 mmol/L Normal 136-145 [facility] Comment on above: Order Comment: No: D o not add to previous draw Performed By: #### 5 6101 #### [facility] [address] [facility] Urea nitrogen [Mass/Vol] 12 mg/dL Normal 7-25 [facility] Comment on above: Order Comment: No: D o not add to previous draw Performed By: #### 5 6101 #### [facility] [address] [facility] CBC W/DIFFon 08-03-2019 ABS BASOPHILS 0.0 10*3/uL Normal 0.0-0.2 [facility] Comment on above: Order Comment: No: D o not add to previous draw Performed By: #### 5 6101 #### [facility] [address] [facility] ABS IMM GRANS 0.1 10*3/uL Normal 0.0-0.2 [facility] Comment on above: Order Comment: No: D o not add to previous draw Performed By: #### 5 6101 #### [facility] [address] [facility] ABS NEUTROPHILS 8.0 10*3/uL High 1.6-7.6 [facility] Comment on above: Order Comment: No: D o not add to previous draw Performed By: #### 5 6101 #### [facility] [facility] [address] [facility] [place] [address], [facility] Basophils/100 WBC (Bld) 0.1 % Normal 0.0-1.0 [facility] Comment on above: Order Comment: No: D o not add to previous draw Performed By: #### 5 [id number] #### [facility] [address] [place] [address], [facility] Eosinophils (Bld) [#/Vol] 0.0 10*3/uL Normal 0.0-0.5 [facility] Comment on above: Order Comment: No: D o not add to previous draw Performed By: #### 5 [id number] #### [facility] [address] [place] [address], [facility] Eosinophils/100 WBC (Bld) 0.0 % Normal 0.0-6.0 [facility] Comment on above: Order Comment: No: D o not add to previous draw Performed By: #### 5 6101 #### [facility] [address] [facility] [place] [address], [facility] Erythrocyte distribution width (RBC) [Ratio] 12.1 % Normal 11.5-15.0 [facility] Comment on above: Order Comment: No: D o not add to previous draw Performed By: #### 5 [id number] #### [facility] [address] [facility] [place] [address], [facility] Hematocrit (Bld) [Volume fraction] 29.4 % Low 36.0-45.0 [facility] Comment on above: Order Comment: No: D o not add to previous draw Performed By: #### 5 [id number] #### [facility] [address] [facility] [place] [address], [facility] Hemoglobin (Bld) [Mass/Vol] 9.5 g/dL Low 12.0-15.0 [facility] Comment on above: Order Comment: No: D o not add to previous draw Performed By: #### 5 6101 #### [facility] [address] [place] [place] [address], [facility] IMMATURE GRANS 0.5 % Normal 0.0-1.0 [facility] Comment on above: Order Comment: No: D o not add to previous draw Performed By: #### 5 6101 #### [facility] [address] [place] [address], [facility] Lymphocytes (Bld) [#/Vol] 1.3 10*3/uL Normal 1.2-4.0 [facility] Comment on above: Order Comment: No: D o not add to previous draw Performed By: #### 5 6101 #### [facility] [address] [place] [address], [facility] Lymphocytes/100 WBC (Bld) 13.1 % Low 20.0-45.0 [facility] Comment on above: Order Comment: No: D o not add to previous draw Performed By: #### 5 6101 #### [facility] [address] [place] [address], [facility] MCH (RBC) [Entitic mass] 32.0 pg Normal 27.0-33.0 [facility] Comment on above: Order Comment: No: D o not add to previous draw Performed By: #### 5 6101 #### [facility] [address] [place] [address], [facility] MCHC (RBC) [Mass/Vol] 32.3 g/dL Normal 32.0-35.0 [facility] Comment on above: Order Comment: No: D o not add to previous draw Performed By: #### 5 6101 #### [facility] [address] [place] [address], [facility] MCV (RBC) [Entitic vol] 99.0 fL High 82.0-98.0 [facility] Comment on above: Order Comment: No: D o not add to previous draw Performed By: #### 5 6101 #### [facility] [address] [place] [address], [facility] Monocytes (Bld) [#/Vol] 0.7 10*3/uL Normal 0.1-1.0 [facility] Comment on above: Order Comment: No: D o not add to previous draw Performed By: #### 5 6101 #### [facility] [address] [place] [address], [place] MONOS 7.2 % Normal 5.0-12.0 [facility] Comment on above: Order Comment: No: D o not add to previous draw Performed By: #### 5 6101 #### [facility] [address] [place] [address], [place] Neutrophils/100 WBC (Bld) 79.1 % High 40.0-72.0 [facility] Comment on above: Order Comment: No: D o not add to previous draw Performed By: #### 5 6101 #### [facility] [address] [place] [address], [place] Nucleated RBC/100 WBC (Bld) [Ratio] 0 % Normal 0-0 [facility] Comment on above: Order Comment: No: D o not add to previous draw Performed By: #### 5 6101 #### [facility] [address] [place] [address], [place] PLAT CNT 264 10*3/uL Normal 150-400 [facility] Comment on above: Order Comment: No: D o not add to previous draw Performed By: #### 5 6101 #### [facility] [address] [place] [address], [place] RBC (Bld) [#/Vol] 2.97 10*6/uL Low 3.80-5.00 [facility] Comment on above: Order Comment: No: D o not add to previous draw Performed By: #### 5 6101 #### [facility] [address] [place] [address], [place] WBC (Bld) [#/Vol] 10.07 10*3/uL Normal 4.00-10.60 [facility] Comment on above: Order Comment: No: D o not add to previous draw Performed By: #### 5 6101 #### [facility] [address] POC GLUCOSE LABon 08-02-2019 Glucose [Mass/Vol] 95 mg/dL Normal 70-100 [facility] Comment on above: Performed By: #### 5 6101 #### [address] [address], [facility] PORTABLE SHOULDER RIGHT 2 VW Son 08-02-2019 PORTABLE SHOULDER RIGHT 2 S [facility] Department of Radiology [address] [place] [id number] ======== Patient Name: MARYAM SOLOMON : 1955 Sex: F Age: Race: White Pt. Location: [id number] Patient Status: I Ordered Date: 08/02/2019 5:55:00 PM Completed Date: 08/02/2019 06:34 PM Requesting Provider: TIRSO GONZALES Attending Provider: KRISHNA SOFIA Report Copy To: Signs & Symptoms: Pain ( specify Location) History: See Comments Comments: Hardware Evaluation Exam: PORTABLE SHOULDER RIGHT 2 VWS ======== PORTABLE SHOULDER RIGHT 2 VWS 08/02/2019 6:34 PM EDT SIGNS AND SYMPTOMS: [...] findings. Electronically signed by:Gayle Rowe. Transcribed by: [email or web address], User Resident: VILMA AMAYA Electronically Signed by: GAYLE ROWE @ 08/02/2019 07:31 PM I personally read this/these film(s) with this resident Normal [facility] Comment on above: Order Comment: No: D o not add to previous draw CT 3D UPPER EXTREMITY WO CON TRAST RIGHTon 07-10-2019 CT 3D UPPER EXTREMITY WO CONTRAST RIGHT [facility] Department of Radiology [address] [place] [phone] ======== Patient Name: MARYAM SOLOMON : 1955 Sex: F Age: Race: White Pt. Location: Patient Status: D Ordered Date: 07/02/2019 3:40:00 PM Completed Date: 07/10/2019 04:05 PM Requesting Provider: KRISHNA SOFIA Attending Provider: KRISHNA SOFIA Report Copy To: LALA WATSON Signs & Symptoms: M25.811 Other specified joint disorders, right shoulder I10 History: Marie, no pc per todd @ [facility] cpt code 34483 *mla Comments: right shoulder for surgical planning [...] injury. Electronically signed by:Los Odonnell. Transcribed by: [email or web address], User Resident: Electronically Signed by: LOS ODONNELL @ 07/10/2019 04:22 PM Normal [facility] Comment on above: Order Comment: No: D o not add to previous draw SHOULDER RIGHTon 07-02-2019 SHOULDER RIGHT [facility] Department of Radiology [address] [place] [address] ======== Patient Name: MARYAM SOLOMON [...] instability Electronically signed by:Los Odonnell. Transcribed by: [email or web address], User Resident: Electronically Signed by: LOS ODONNELL @ 07/02/2019 03:41 PM Normal [facility] Comment on above: Order Comment: No: D o not add to previous draw Operative Reporton 9 Operative Report MR#: [id number] S [facility] Pt. Name: Maryam Solomon Room [...] by: Krishna Sofia MD 12/09/2018 08:23 P Krihsna Sofia MD Date Dict: 11/28/2018/07:32 P/Krishna Sofia MD Date Trans: 11/29/2018 06:23 A/macho [id number]_JN:[id number] cc: Lala Watson M.D. [address] [address] Normal [facility] POC GLUCOSE LABon 11-27-2018 Glucose [Mass/Vol] 90 mg/dL Normal 70-100 The [facility] Comment on above: Performed By: #### 0 0071 #### [facility] [address] *MRSA/MSSA DNA NASALon 11-06 *MRSA/MSSA DNA NASAL Clinical Report: (D ) Specimen: NASAL SWAB Collected: 11/06/2018 13:53 Status: Final Last Updated: 11/06/2018 18:38 MSSA DNA (Final) Negative MRSA DNA (Final) Negative Normal [facility] Comment on above: Performed By: #### 0 0071 #### [facility] [address] [place] [address], [facility] APTTon 11-06-2018 aPTT Coag (Bld) [Time] 33.9 s Normal 25.0-35.0 [facility] Comment on above: Result Comment: [...] PURPOSE. Performed By: #### 0 0071 #### [facility] [address] [place] [address], [facility] BASIC METABOLIC PANELon 10-23 Calcium [Mass/Vol] 9.4 mg/dL Normal 8.6-10.3 [facility] Comment on above: Performed By: #### 0 0071 #### [facility] [address] [place] [address], [facility] Chloride [Moles/Vol] 102 mmol/L Normal 98-107 [facility] Comment on above: Performed By: #### 0 0071 #### [facility] [address] [place] [address], [facility] CO2 [Moles/Vol] 27 mmol/L Normal 21-31 [facility] Comment on above: Performed By: #### 0 0071 #### [facility] [address] [place] [address], [facility] Creatinine [Mass/Vol] 0.86 mg/dL Normal 0.60-1.20 [facility] Comment on above: Performed By: #### 0 0071 #### [facility] [address] [place] [address], [facility] GFR/1.73 sq M predicted among blacks MDRD (S/P/Bld) [Vol rate/Area] mL/min/{1.73_m2} Normal >60 [facility] Comment on above: Performed By: #### 0 0071 #### [facility] [address] [place] [address], [facility] GFR/1.73 sq M predicted among non-blacks MDRD (S/P/Bld) [Vol rate/Area] mL/min/{1.73_m2} Normal >60 [facility] Comment on above: Performed By: #### 0 0071 #### [facility] [address] [facility] [place] [address], [facility] Glucose [Mass/Vol] 91 mg/dL Normal 70-100 [facility] Comment on above: Performed By: #### 0 0071 #### [facility] [address] [facility] [place] [address], [facility] Potassium [Moles/Vol] 4.1 mmol/L Normal 3.5-5.1 [facility] Comment on above: Performed By: #### 0 0071 #### [facility] [address] [facility] [place] [address], [facility] Sodium [Moles/Vol] 134 mmol/L Low 136-145 [facility] Comment on above: Performed By: #### 0 0071 #### [facility] [address] [place] [place] [address], [facility] Urea nitrogen [Mass/Vol] 17 mg/dL Normal 7-25 [facility] Comment on above: Performed By: #### 0 0071 #### [facility] [address] [facility] [place] [address], [facility] CBC W/DIFFon 11-06-2018 ABS BASOPHILS 0.1 10*3/uL Normal 0.0-0.2 [facility] Comment on above: Performed By: #### 0 0071 #### [facility] [address] [facility] [place] [address], [facility] ABS IMM GRANS 0.0 10*3/uL Normal 0.0-0.2 [facility] Comment on above: Performed By: #### 0 0071 #### [facility] [address] [place] [address], [facility] ABS NEUTROPHILS 4.6 10*3/uL Normal 1.6-7.6 [facility] Comment on above: Performed By: #### 0 0071 #### [facility] [address] [place] [address], [facility] Basophils/100 WBC (Bld) 0.7 % Normal 0.0-1.0 [facility] Comment on above: Performed By: #### 0 0071 #### [facility] [address] [facility] [place] [address], [facility] Eosinophils (Bld) [#/Vol] 0.1 10*3/uL Normal 0.0-0.5 [facility] Comment on above: Performed By: #### 0 0071 #### [facility] [address] [facility] [place] [address], [facility] Eosinophils/100 WBC (Bld) 1.8 % Normal 0.0-6.0 [facility] Comment on above: Performed By: #### 0 0071 #### [facility] [address] [facility] [place] [address], [facility] Erythrocyte distribution width (RBC) [Ratio] 11.9 % Normal 11.5-15.0 [facility] Comment on above: Performed By: #### 0 0071 #### [facility] [address] [place] [address], [facility] Hematocrit (Bld) [Volume fraction] 38.6 % Normal 36.0-45.0 [facility] Comment on above: Performed By: #### 0 0071 #### [facility] [address] [place] [address], [facility] Hemoglobin (Bld) [Mass/Vol] 12.6 g/dL Normal 12.0-15.0 [facility] Comment on above: Performed By: #### 0 0071 #### [facility] [address] [facility] [place] [address], [facility] IMMATURE GRANS 0.1 % Normal 0.0-1.0 [facility] Comment on above: Performed By: #### 0 0071 #### [facility] [address] [place] [address], [facility] Lymphocytes (Bld) [#/Vol] 1.9 10*3/uL Normal 1.2-4.0 [facility] Comment on above: Performed By: #### 0 0071 #### [facility] [address] [place] [address], [facility] Lymphocytes/100 WBC (Bld) 26.3 % Normal 20.0-45.0 [facility] Comment on above: Performed By: #### 0 0071 #### [facility] [address] [facility] [place] [address], [facility] MCH (RBC) [Entitic mass] 30.8 pg Normal 27.0-33.0 [facility] Comment on above: Performed By: #### 0 0071 #### [facility] [address] [facility] [place] [address], [facility] MCHC (RBC) [Mass/Vol] 32.6 g/dL Normal 32.0-35.0 [facility] Comment on above: Performed By: #### 0 0071 #### [facility] [address] [place] [address], [facility] MCV (RBC) [Entitic vol] 94.4 fL Normal 82.0-98.0 [facility] Comment on above: Performed By: #### 0 0071 #### [facility] [address] [place] [address], [facility] Monocytes (Bld) [#/Vol] 0.4 10*3/uL Normal 0.1-1.0 [facility] Comment on above: Performed By: #### 0 0071 #### [facility] [address] [facility] [place] [address], [facility] MONOS 5.5 % Normal 5.0-12.0 [facility] Comment on above: Performed By: #### 0 0071 #### [facility] [address] [facility] [place] [address], [facility] Neutrophils/100 WBC (Bld) 65.6 % Normal 40.0-72.0 [facility] Comment on above: Performed By: #### 0 0071 #### [facility] [address] [facility] [place] [address], [facility] Nucleated RBC/100 WBC (Bld) [Ratio] 0 % Normal 0-0 [facility] Comment on above: Performed By: #### 0 0071 #### [facility] [address] [facility] [place] [address], [facility] PLAT CNT 327 10*3/uL Normal 150-400 The [facility] Comment on above: Performed By: #### 0 0071 #### [facility] [address] [facility] [place] [address], [facility] RBC (Bld) [#/Vol] 4.09 10*6/uL Normal 3.80-5.00 [facility] Comment on above: Performed By: #### 0 0071 #### [facility] [address] [place] [address], [facility] WBC (Bld) [#/Vol] 7.03 10*3/uL Normal 4.00-10.60 [facility] Comment on above: Performed By: #### 0 0071 #### [facility] [address] [place] [address], [facility] PROTHROMBIN TIMEon 01-15-201 9 INR Coag (PPP) [Relative time] 0.93 {INR} Normal 0.91-1.16 [facility] Comment on above: Result Comment: ACC P RECOMMENDED INR FOR WARFARIN THERAPY ------- [...] 1995;108:231S-246S. Performed By: #### 0 0071 #### [address] PT Coag (PPP) [Time] 12.5 s Normal 12.3-14.8 [facility] Comment on above: Result Comment: ALL RESULTS MUST BE INTERPRETED WITH RESPECT TO BLOOD DRAWING ARTIFACT OR DILUTION ERROR OF ANTICOAGULANT AT THE TIME OF SAMPLING. Performed By: #### 0 0071 #### [address] MRI SHOULDER WO CONTRAST RIG HTon 10-29-2018 MRI SHOULDER WO CONTRAST RIGHT [facility] Department of Radiology [address] [place] [phone] ======== Patient Name: MARYAM SOLOMON : 1955 Sex: F Age: Race: White Pt. Location: Patient Status: D Ordered Date: 10/17/2018 3:15:00 PM Completed Date: 10/29/2018 04:20 PM Requesting Provider: KRISHNA SOFIA Attending Provider: KRISHNA SOFIA Report Copy To: LALA WATSON Signs & Symptoms: M75.121 Complete rotatr-cuff tear/ruptr of r shoulder, not trauma I10 History: Sterling no pc per [employer] @ [employer] cpt code 00641 call ref# [id number] *mla Comments: , , , Ordering Provider [...] bursitis. Electronically signed by:Los Odonnell. Transcribed by: [email or web address], User Resident: Electronically Signed by: LOS ODONNELL @ 10/30/2018 12:47 PM Normal [facility] Comment on above: Order Comment: No: D o not add to previous draw SHOULDER RIGHTon 09-04-2018 SHOULDER RIGHT [facility] Department of Radiology [address] [place] [phone] ======== Patient Name: MARYAM SOLOMON : 1955 Sex: F Age: Race: White Pt. Location: Patient Status: O Ordered Date: 09/04/2018 1:15:00 PM Completed Date: 09/04/2018 01:29 PM Requesting Provider: KRISHNA SOFIA Attending Provider: KRISHNA SOFIA Report Copy To: LALA WATSON Signs & Symptoms: S42.91XD Fx r shoulder girdle, part unsp, subs for fx w routn heal I10 History: [place] Comments: , Views (X-RAY, SHOULDER): AP, [place], Y-Lateral, [place] , Views (X-RAY, SHOULDER): AP, [place], Y-Lateral, [place] , , , Ordering Provider - KRISHNA SOFIA MD , Exam: SHOULDER RIGHT ======== SHOULDER RIGHT 09/04/2018 1:29 PM EST SIGNS AND SYMPTOMS: S42.91XD Fx r shoulder girdle, part unsp, subs for fx w connorn heal 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 Transcribed by: [email or web address], User Resident: Electronically Signed by: BRENDAN MORIN @ 09/04/2018 01:55 PM Normal [facility] Comment on above: Order Comment: No: D o not add to previous draw Operative Reporton 8 Operative Report MR#: [id number] I [facility] Pt. Name: Maryam Solomon Room #: [id number] Discharge 08/24/2018 Date: Birthdate: 1955 OPERATIVE REPORT [...] Sofia MD Date Trans: 08/25/2018 09:10 A/macho [id number] cc: Lala Watson M.D. [place] [id number] [facility] [address] Adilene Liu M.D. [facility]...do Not Send [address] [facility] [address] Normal [facility] BASIC METABOLIC PANELon 11-0 Calcium [Mass/Vol] 8.9 mg/dL Normal 8.6-10.3 [facility] Comment on above: Order Comment: No: D o not add to previous draw Performed By: #### 0 0071 #### [facility] [address] [place] [address], [place] Chloride [Moles/Vol] 102 mmol/L Normal 98-107 [facility] Comment on above: Order Comment: No: D o not add to previous draw Performed By: #### 0 0071 #### [facility] [address] [place] [address], [place] CO2 [Moles/Vol] 24 mmol/L Normal 21-31 The [facility] Comment on above: Order Comment: No: D o not add to previous draw Performed By: #### 0 0071 #### [facility] [address] [place] [address], [place] Creatinine [Mass/Vol] 0.84 mg/dL Normal 0.60-1.20 [facility] Comment on above: Order Comment: No: D o not add to previous draw Performed By: #### 0 0071 #### [facility] [address] [place] [address], [place] GFR/1.73 sq M predicted among blacks MDRD (S/P/Bld) [Vol rate/Area] mL/min/{1.73_m2} Normal >60 [facility] Comment on above: Order Comment: No: D o not add to previous draw Performed By: #### 0 0071 #### [facility] [address] [place] [address], [facility] GFR/1.73 sq M predicted among non-blacks MDRD (S/P/Bld) [Vol rate/Area] mL/min/{1.73_m2} Normal >60 [facility] Comment on above: Order Comment: No: D o not add to previous draw Performed By: #### 0 0071 #### [facility] [address] [place] [address], [place] Glucose [Mass/Vol] 182 mg/dL High 70-100 The [facility] Comment on above: Order Comment: No: D o not add to previous draw Performed By: #### 0 0071 #### [facility] [address] [place] [address], [place] Potassium [Moles/Vol] 4.1 mmol/L Normal 3.5-5.1 [facility] Comment on above: Order Comment: No: D o not add to previous draw Performed By: #### 0 0071 #### [facility] [address] [place] [address], [place] Sodium [Moles/Vol] 135 mmol/L Low 136-145 [facility] Comment on above: Order Comment: No: D o not add to previous draw Performed By: #### 0 0071 #### [facility] [address] [place] [address], [facility] Urea nitrogen [Mass/Vol] 12 mg/dL Normal 7-25 [facility] Comment on above: Order Comment: No: D o not add to previous draw Performed By: #### 0 0071 #### [facility] [address] [place] [address], [facility] CBC COMPLETE BLOOD COUNTon 10-23-2017 Erythrocyte distribution width (RBC) [Ratio] 12.3 % Normal 11.5-15.0 [facility] Comment on above: Order Comment: No: D o not add to previous draw Performed By: #### 5 [id number] #### [facility] [address] [place] [id number], [facility] Hematocrit (Bld) [Volume fraction] 34.9 % Low 36.0-45.0 [facility] Comment on above: Order Comment: No: D o not add to previous draw Performed By: #### 5 [id number] #### [facility] [address] [place] [address], [facility] Hemoglobin (Bld) [Mass/Vol] 11.7 g/dL Low 12.0-15.0 [facility] Comment on above: Order Comment: No: D o not add to previous draw Performed By: #### 5 [id number] #### [facility] [address] [place] [address], [facility] MCH (RBC) [Entitic mass] 31.7 pg Normal 27.0-33.0 [facility] Comment on above: Order Comment: No: D o not add to previous draw Performed By: #### 5 [id number] #### [facility] [address] [place] [address], [facility] MCHC (RBC) [Mass/Vol] 33.5 g/dL Normal 32.0-35.0 [facility] Comment on above: Order Comment: No: D o not add to previous draw Performed By: #### 5 [id number] #### [facility] [address] [place] [address], [facility] MCV (RBC) [Entitic vol] 94.6 fL Normal 82.0-98.0 [facility] Comment on above: Order Comment: No: D o not add to previous draw Performed By: #### 5 [id number] #### [facility] [address] [facility] [place] [address], [facility] Nucleated RBC/100 WBC (Bld) [Ratio] 0 % Normal 0-0 [facility] Comment on above: Order Comment: No: D o not add to previous draw Performed By: #### 5 [id number] #### [facility] [address] [facility] [place] [address], [facility] PLAT CNT 322 10*3/uL Normal 150-400 [facility] Comment on above: Order Comment: No: D o not add to previous draw Performed By: #### 5 [id number] #### [facility] [address] [place] [address], [facility] RBC (Bld) [#/Vol] 3.69 10*6/uL Low 3.80-5.00 [facility] Comment on above: Order Comment: No: D o not add to previous draw Performed By: #### 5 [id number] #### [facility] [address] [facility] [place] [address], [facility] WBC (Bld) [#/Vol] 16.41 10*3/uL High 4.00-10.60 [facility] Comment on above: Order Comment: No: D o not add to previous draw Performed By: #### 5 [id number] #### [facility] [address] [facility] [place] [address], [facility] CT UPPER EXTREMITY WO CONTRA ST RIGHTon 08-23-2018 CT UPPER EXTREMITY WO CONTRAST RIGHT [facility] Department of Radiology [address] [place] [address] ======== Patient Name: MARYAM SOLOMON : 1955 Sex: F Age: Race: White Pt. Location: [id number] Patient Status: I Ordered Date: 08/23/2018 8:45:00 [...] fracture Electronically signed by:Los Odonnell. Transcribed by: [email or web address], User Resident: Electronically Signed by: LOS ODONNELL @ 08/23/2018 01:20 PM Normal [facility] Comment on above: Order Comment: R/O F ractures, Right shoulder CT scan to evaluate fx pattern Consultationon 08-23-2018 Consultation MR#: [id number] [facility] Pt. Name: Maryam Solomon Date of Service: 08/23/2018 Room #: 4CD [id number] Birthdate: 1955 Referring Physician: CONSULTATION HISTORY OF [...] to 0.5% for any cardiac or non-fatal MS and I feel very comfortable to just [...] Jaquan/Perry Mchugh MD Date Trans: 08/23/2018 09:21 P/macho [id number] cc: Lala Watson M.D. [facility] [address] [facility] [address] Adilene Liu M.D. R Physican...do Not Send [address] [facility] [address] Normal [facility] PORTABLE SHOULDER RIGHT 2 VW Son 08-23-2018 PORTABLE SHOULDER RIGHT 2 S [facility] Department of Radiology [address] [place] [address] ======== Patient Name: MARYAM SOLOMON : 1955 Sex: F Age: Race: White Pt. Location: [facility] Patient Status: I Ordered Date: 08/23/2018 [...] Bankart Electronically signed by:Los Odonnell. Transcribed by: [email or web address], User Resident: Electronically Signed by: LOS ODONNELL @ 08/23/2018 09:02 AM Normal [facility] Comment on above: Order Comment: R/O D islocation, 3 views; Grashey, scapular Y, and axillary (or velpeau if cannot obtain satisfactory axillary) PROTHROMBIN TIMEon 8 INR Coag (PPP) [Relative time] 0.97 {INR} Normal 0.91-1.16 [facility] Comment on above: Order Comment: No: [...] 1995;108:231S-246S. Performed By: #### 5 6101 #### [address] PT Coag (PPP) [Time] 12.9 s Normal 12.3-14.8 [facility] Comment on above: Order Comment: No: D o not add to previous draw Result Comment: ALL RESULTS MUST BE INTERPRETED WITH RESPECT TO BLOOD DRAWING ARTIFACT OR DILUTION ERROR OF ANTICOAGULANT AT THE TIME OF SAMPLING. Performed By: #### 5 [id number] #### [address] SHOULDER RIGHTon 08-23-2018 SHOULDER RIGHT [facility] Department of Radiology [address] [place] [address] ======== Patient Name: MARYAM SOLOMON : 1955 Sex: F Age: Race: White Pt. Location: [id number] Patient Status: I Ordered Date: 08/23/2018 2:10:00 [...] findings. Electronically signed by:Gayle Rowe. Transcribed by: [email or web address], User Resident: DAMIÁN DACOSTA Electronically Signed by: GAYLE ROWE @ 08/24/2018 05:40 PM I personally read this/these film(s) with this resident Normal [facility] Comment on above: Order Comment: RIGHT SHOULDER CLOSED VS. OPEN REDUCTION TYPE AND SCREENon 08-23-2018 ABO INTERPRETATION O Normal [facility] Comment on above: Performed By: #### 6 [id number] #### [facility] [address] [place] [address], [facility] RH INTERPRETATION Positive Normal [facility] Comment on above: Performed By: #### 6 [id number] #### [facility] [address] [place] [address], [facility] Vital Signs Date Time Vital Sign Value Performing Clinician Mari hewitt 09-05-2023 15:01-0500 Blood Pressure Location [facility] [place] 09-05-2023 15:01-0500 Diastolic blood pressure 94 mm[Hg] [email or web address] [place] 09-05-2023 15:01-0500 Heart rate 70 /min [facility] [place] 09-05-2023 15:01-0500 Respiratory rate 16 /min [facility] [place] 09-05-2023 15:01-0500 Systolic blood pressure 152 mm[Hg] [facility] [place] Encounters Encounter Date Encounter Type Care Provider Facility Start: 05-23-2024 End: 05-23-2024 Subsequent hospital visit by physician Janusz Flores MD Work Phone: [facility] Laboratory Comment on above: Bilateral lower abdo flavio pain Start: 05-23-2024 End: 05-25-2024 ambulatory [facility] Start: 05-14-2024 End: 05-14-2024 ambulatory [facility] Start: 05-14-2024 Encounter for gynecological examination (general) (routine) without abnormal findings [facility] Start: 05-14-2024 End: 05-14-2024 Patient encounter status Lala Watson MD Work Phone: [facility] Start: 05-14-2024 End: 05-14-2024 Subsequent hospital visit by physician Lala Watson MD Work Phone: [facility] Laboratory Comment on above: Encounter for routin e gynecologic examination in Medicare patient Start: 10-10-2023 End: 10-11-2023 ambulatory Eron R NILL Facility:[facility] Start: 10-10-2023 End: 10-10-2023 Patient encounter procedure Eron R NILL General Surgery Nill/[facility] Start: 09-27-2023 End: 09-28-2023 ambulatory Eron R NILL Facility:CD:[id number] Start: 09-05-2023 End: 09-06-2023 ambulatory Eron R NILL Facility:[facility] Start: 09-05-2023 End: 09-05-2023 Patient encounter procedure Eron R NILL General Surgery Nill[facility] [place] Start: 11-22-2022 ambulatory Eron R YOHANA Facility :[facility] Start: 09-21-2022 End: 09-22-[address] LALA WATSON Facility:[facility] Start: 08-22-2022 End: 08-22-2022 Patient encounter procedure Lala Watson MD Work Phone: [facility] Start: 08-22-2022 End: 08-22-2022 Subsequent hospital visit by physician Lala Watson MD Work Phone: [facility] Laboratory Comment on above: Women's annual routi ne gynecological examination Start: 05-02-2022 End: 05-03-[address] LALA WATSON Facility:[facility] Start: [address] LALA WATSON Facility :[facility] Start: 04-20-2020 End: 04-20-2020 Subsequent hospital visit by physician Lala Watson [facility] Comment on above: Encounter for well w iveth exam with routine gynecological exam Start: 08-02-2019 End: 08-03-2019 Evaluation and management of inpatient KRISHNA SOFIA Facility:[facility] Start: 11-27-2018 End: 11-28-2018 Patient encounter procedure OSAMA JOSE ROBERTOR Facility:[facility] Start: 08-23-2018 End: 08-24-2018 Evaluation and management of inpatient ADILENE LIU Facility:[facility] Procedures Date Procedure Procedure Detail Performing Clinician Start: 05-23-2024 Urinalysis microscopic only Janusz Flores MD Work Phone: Start: 05-23-2024 Urnls dip stick/tabl et rgnt auto w/o microscopy Janusz Flores MD Work Phone: Start: 05-23-2024 Comprehensive metabo lic panel Janusz Flores MD Work Phone: Start: 09-27-2023 Colonoscopy Eron JESUS LL Start: 08-03-2019 INTRODUCTION OF INFL UENZA VACCINE INTO MUSCLE, PERC APPROACH OSAMA ELATTAR Start: 08-02-2019 REPLACE OF R SHOULDE R JT WITH REV BL \T\ SOCKT, OPEN APPROACH OSAMA ELATTAR Start: 11-27-2018 ANESTH SURGERY OF SHOULDER AYANNA RED Start: 11-27-2018 ARTHROSCOPY BICEPS TENODESIS OSAMA ELATTAR Start: 11-27-2018 REPAIR ROTATOR CUFF ACUTE OSAMA ELATTAR Start: 08-23-2018 Antibody screen KRISHNA Devries [facility] Comment on above: Performed By: #### 6 [id number] #### [address] Start: 08-23-2018 REPOSITION RIGHT MIMA ULDER JOINT, EXTERNAL APPROACH OSAMA ELATTAR Start: 10-23-1976 Appendectomy Eron JESUS ROSI Comment on above: [facility] Arthroplasty of righ t shoulder Eron MULLER Colonoscopy Eron HUSTONL Colonoscopy Eron NILL Comment on above: x 2 ([facility]) Repair of musculoten dinous cuff of shoulder Eron MULLER Tonsillectomy Eron MULLER Vaginal hysterectomy Eron MULLER Plan of Treatment Date Care Activity Detail Author Start: 08-14-2026 Screening for malign ant neoplasm of colon [facility] Start: 05-23-2024 Influenza vaccination Flu vaccine (# 1) [facility] Start: 10-23-2023 Annual Wellness Visi t (Medicare Advantage) Annual Wellness Visit (Medicare Advantage) [facility] Start: 09-21-2023 End: 09-21-2023 Patient encounter procedure 09/21/2023 Office Visit Obstetrics and Gynecology Janusz Flroes MD [address] [place], [place] [id number] [facility] Start: 08-24-2023 End: 08-24-2023 Patient encounter procedure 08/24/2023 Office Visit Obstetrics and Gynecology Janusz Flores MD [address] [place] [address] [facility] Start: 06-23-2023 COVID-19 Vaccine ( season) COVID-19 Vaccine ( season) [facility] Start: 08-25-2022 Screening for malign ant neoplasm of breast Breast cancer screen [facility] Start: 05-23-2022 Influenza vaccination Flu vaccine (# 1) [facility] Start: 05-18-2022 COVID-19 Vaccine (5 - Booster for Pfizer series) COVID-19 Vaccine (5 - Booster for Pfizer series) [facility] Start: 03-08-2022 Pneumococcal 65+ yea rs Vaccine (2 - PPSV23 if available, else PCV20) Pneumococcal 65+ years Vaccine (2 - PPSV23 if available, else PCV20) [facility] Start: 03-08-2022 Pneumococcal 65+ yea rs Vaccine (2 of 2 - PPSV23 or PCV20) Pneumococcal 65+ years Vaccine (2 of 2 - PPSV23 or PCV20) [facility] Start: 06-23-2020 Influenza vaccination Flu vacc ine (Season Ended) [place] Start: 05-17-2019 Screening for malign ant neoplasm of cervix Cervical cancer screen [place], [place] Start: 09-12-2018 Screening for malign ant neoplasm of breast Breast cancer screen [place], [place] Start: 2010 Screening for osteoporosis DEXA (modify frequency per FRAX score) [facility] Start: 2005 Screening for malign ant neoplasm of colon Colon cancer screen colonoscopy [place], [place] Start: 2005 Shingles Vaccine (1 of 2) Shingles Vaccine (1 of 2) [facility] Start: 2000 Screening for malign ant neoplasm of colon [facility] Start: 1995 Diabetes screen Diabetes screen [place], [place] Start: 1990 Diabetes screen Diabetes screen [facility] Start: 1974 DTaP/Tdap/Td vaccine (1 - Tdap) DTaP/Tdap/Td vaccine (1 - Tdap) [facility] Start: 1973 Hepatitis C [facility] Start: 1970 HIV screening HIV screen [place], [place] Start: 1967 Depression Screen Depression Screen [facility] Start: 1965 Lipid panel [facility] Start: 1955 Creatinine measurement Creatinine mo nitoring [place], [place] Start: 1955 Hepatitis C screening Hepatitis C sc [place], [place] Start: 1955 Potassium monitoring Potassium monit [place]ing [place] End: 04-20-2020 Cytopathology procedure, preparation of smear, genital source [facility] Routine Encounter For Well Woman Exam With Routine Gynecological Exam 1 Occurrences starting 04/20/2020 until 04/20/2020 [place] Comment on above: 1 Occurrences starti ng 04/20/2020 until 04/20/2020 End: 08-22-2022 Cytopathology procedure, preparation of smear, genital source [facility] Lab Routine Women's annual routine gynecological examination 1 Occurrences starting 08/22/2022 until 08/22/2022 [facility] Work Phone: Comment on above: 1 Occurrences starti ng 08/22/2022 until 08/22/2022 End: 05-14-2024 Cytopathology procedure, preparation of smear, genital source [facility] Lab Routine Encounter for routine gynecologic examination in Medicare patient 1 Occurrences starting 05/14/2024 until 05/14/2024 [facility] Comment on above: 1 Occurrences starti ng 05/14/2024 until 05/14/2024 Immunizations Immunization Date Immunization Notes Care Provider Brian augustin 07-23-2023 influenza virus vaccine, unspecified formulation [facility] 09-21-2022 influenza virus vaccine, unspecified formulation [facility] 09-21-2022 SARS-CoV-2 (COVID-19 ) [id number] Eron Waynaut [facility] 03-23-2022 SARS-CoV-2 mRNA (uejorfltgfz-dhna-xdzsl se) vaccine [facility] 08-09-2021 SARS-CoV-2 (COVID-19 ) mRNA BNT-162b2 vax [facility] Comment on above: Result Comment: 2022: [id number] 01-12-2021 SARS-CoV-2 (COVID-19 ) mRNA BNT-162b2 vax [facility] [place] 12-21-2020 SARS-CoV-2 (COVID-19 ) mRNA BNT-162b2 vax [facility] Payers Date Payer Category Payer Unknown [id number] 2019 Unknown BCBS [place] - [place] P PO xxxxxxxxxxxxxxx 2019-Present [address] [place] [address] xxxxxxxxxxxxxxx [id number] 2019 Unknown [id number] 1959 Self-pay [id number] 1959 Unknown [id number] 1959 Unknown [id number] 1955 Unknown [id number] [id number] 1955 Unknown [id number] [id number] 1955 Unknown [id number] [id number] 1955 Unknown [id number] [id number] 1955 Unknown [id number] 2.16.840.1.622066.3.579.2.593 1955 Unknown [id number] [id number] 1955 Unknown [id number] [id number] 1955 Unknown [id number] 2.16.840.1.806401.3.579.2.727 1955 Unknown [id number] [id number] 1955 Unknown [id number] 2.16.840.1.022975.3.579.2.727 1955 Unknown [id number] [id number] 1955 Unknown [id number] [id number] 1955 Unknown [id number] [id number] Social History Date Type Detail Facility Start: 04-20-2020 End: 09-05-2023 Tobacco smoking status NJIS Never smoker [place] Start: 04-20-2020 End: 05-14-2024 Alcohol intake Current drinker of alcohol (finding) [place] Start: 1955 Sex Assigned At Not on file M [place] Exposure to SARS-CoV -2 (event) Unable to assess [place] Start: 04-20-2020 Tobacco use and exposure Smokeless tobacco non-user CYN[employer]IA [employer] Work Phone: Tobacco smoking status Never [facility] [place] Start: 05-14-2024 Sex Assigned At Female F [facility] Start: 05-14-2024 History of Social function [facility] [employer] Functional Status Date Assessment Result Facility 09-05-2023 Functional Status N/A [facility]-05-2023 Note Date & Type [...] Use:. Never (more content not included)... [facility] Comment on above: Result Comment: Elec tronically Signed By: YOHANA NARAYAN, Eron Brown.talisha\Date and Time Signed: 09/05/23 15:51 EST Clinical [...] authenticated by: COLLETTE CUMMINGS Date: 2022-05-02 20:[address] [facility] Evaluation + Plan note Note Date & Type Note Facility Evaluation + Plan note No data available for this section [facility] [place] Evaluation note Note Date & Type Note Facility Evaluation note Diagnosis Women's annual routine gynecological examination documented in this encounter [facility] Work Phone: Evaluation note Note Date & Type Note Facility Evaluation note Diagnosis Encounter for routine gynecologic examination in Medicare patient documented in this encounter [facility] Evaluation note Note Date & Type Note Facility Evaluation note Diagnosis Bilateral lower abdominal pain Abdominal pain, other specified site documented in this encounter [facility] Hospital Discharge instructions Note Date & Type Note Facility Hospital Discharge instructions No data available for this section [facility] [place] Progress note Note Date & Type Note Facility Progress note No data available for this section [facility] [place] Summary Purpose Family History No Family History Records FoundNo Family History Records Found No data available for this section No data available for this section No Family History Records FoundNo Family History Records Found Advance Directives Documents on File Type Date Recorded 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 Name: Maryam Solomon Admitted: 08/23/2018 Discharged: [...] pa (more content not included)... Note MR#: [id number] [facility] Pt. Name: Maryam Solomon Admitted: 08/02/2019 Discharged: 08/03/2019 Date of : 1955 Physician: Krishna Sofia MD DISCHARGE SUMMARY PRINCIPAL DIAGNOSIS: Right shoulder degenerative joint disease. PROCEDURES PERFORMED: Right reverse total shoulder replacement with open biceps tenodesis. COMPLICATIONS: None. CONSULTS: Physical and Occupational Therapy. HOSPITAL COURSE: The patient is a 63-year-old female who presented to [facility] as outpatient with chief complaint of right [...] section and content) DATE CREATED AUTHOR 08/20/2019 [facility] DATE CREATED AUTHOR AUTHOR'S ORGANIZ ATION 09/28/2022 [facility] DATE CREATED AUTHOR AUTHOR'S ORGANIZ ATION 10/19/2023 [facility] DATE CREATED AUTHOR AUTHOR'S ORGANIZ ATION 05/27/2024 [facility] Care Teams (unrecognized sec tion and content) Exhibit Artist Relationship Specialty [place] [address] [place] [address] PCP - General Family Medicine 05/17/16 Exhibit Artist Relationship Specialty Start Date End Date Lala Watson MD [address] [place] [address] PCP - General Family Medicine 05/17/16 Exhibit Artist Relationship Specialty Start Date End Date Lala Watson MD [address] [place] [address] PCP - General Family Medicine 05/17/16 FOR [...] BE BASED ON THE PRIMARY CLINICAL RECORDS. [facility]. provides no warranty or guarantee of the accuracy or completeness of information in this document.
[2025-01-13 11:39] LABS: Estimated Average Glucose 126 mg/dL
[2025-01-13 11:45] LABS: Basophils Absolute Auto 0.1 10^3/uL (0.0-0.1); Eosinophils Absolute Auto 0.1 10^3/uL (0.0-0.7); Lymphocytes Absolute Auto 2.3 10^3/uL (1.2-3.8); Lymphocytes Percent Auto 23.3 % (20.5-60.0); Red Cell Distribution Width 13.1 % (11.0-15.0)
[2025-01-13 12:10] LABS: Alanine Aminotransferase 28 U/L (14-59); Albumin Globulin Ratio 1.1; Albumin Level 4.1 g/dL (3.4-5.0); Alkaline Phosphatase 95 U/L (46-116); Anion Gap 12.7; Aspartate Amino Transferase 13 U/L (15-37); BUN Creatinine Ratio 16.3; Bilirubin Total 0.6 mg/dL (0.2-1.0); Calcium 9.2 mg/dL (8.5-10.1); Carbon Dioxide 28.5 mmol/L (21.0-32.0); Chloride 100 mmol/L (98-107); Chol HDL Ratio 2.4; Cholesterol 179 mg/dL (<=200); Estimated GFR (African America 52 (>=60 mL/min/1.73m^2); Estimated GFR (Non-African Ame 43 (>=60 mL/min/1.73m^2); Free T3 2.08 pg/mL (2.18-3.98); Globulin 3.6 g/dL; Glucose 103 mg/dL (74-106); HDL Cholesterol 74 mg/dL (40-60); Potassium 4.2 mmol/L (3.5-5.1); Sodium 137 mmol/L (136-145); Thyroid Stimulating Hormone 2.607 uIU/mL (0.358-3.740); Total Protein 7.7 g/dL (6.4-8.2); Triglycerides 70 mg/dL (<=150)
[2025-01-13 12:54] LABS: Basophils Percent Auto 0.5 % (0.2-2.0); Eosinophils Percent Auto 1.1 % (0.9-7.0); Hematocrit 34.6 % (36.0-48.0); Hemoglobin 11.7 g/dL (12.0-16.0); Immature Granulocytes Abs Auto 0.04 10^3/uL (0.00-0.03); Immature Granulocytes Pct Auto 0.4 % (0.0-0.5); Mean Corpuscular HGB Conc 33.8 g/dL (29.9-35.2); Mean Corpuscular Volume 94.5 fL (81.0-99.0); Mean Platelet Volume 9.7 fL (9.5-13.5); Monocytes Absolute Auto 0.6 10^3/uL (0.3-0.8); Monocytes Percent Auto 6.4 % (1.7-12.0); Neutrophils Absolute Auto 6.9 10^3/uL (1.4-6.5); Neutrophils Percent Auto 68.3 % (43.0-75.0); Platelet Count 361 10^3/uL (150-450); Red Blood Count 3.66 10^6/uL (4.20-5.40)
== END 2025-01-13 11:14 | disposition home or self-care (01) ==
LOC: LAB 11:15
PROVIDERS: PCP Family Medicine; Visit Provider Family Medicine
DX: E78.5 Hyperlipidemia, unspecified (principal); E11.9 Type 2 diabetes mellitus without complications; I10 Essential (primary) hypertension; G47.00 Insomnia, unspecified; Z12.12 Encounter for screening for malignant neoplasm of rectum; D64.9 Anemia, unspecified; E03.9 Hypothyroidism, unspecified; R53.83 Other fatigue; M17.9 Osteoarthritis of knee, unspecified
CPT/HCPCS: 36415; 73562; 80053; 80061; 83036; 83540; 84436; 84443; 84481; 85025

== ENCOUNTER 2025-06-02 14:41 | Emergency (ER) | payer MEDICARE, SELFPAY ==
[2025-06-02] VITALS (45 sets, daily range): BP systolic 167–250; BP diastolic 76–130; PULSE 49–153; TEMP 36.8; O2SAT 93–98; BMI 32.3
--- OUTSIDE RECORDS SUMMARY | 2025-06-02 14:46 | XMS_ITS | Encounter Summary ---
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 Name Role Phone Unavailable Primary Care Provider Unavailabl e Encounter Details Date Type Department Care Team (Late st Contact Info) Description 05/21/2025 Telephone [facility] [address] [place] [phone] Iraida Altamirano MD [address] [place] [address] Social History Tobacco Use Types Packs/Day Years Used Date Smoking Tobacco: Never Assessed Comments Unknown Sex and Gender Information Value Date Recorded Sex Assigned at Not on file Legal Sex Female 7:11 PM EDT Gender Identity Not on file Sexual Orientation Not on file documented as of this encounter Miscellaneous Notes * Telephone Encounter - Constanza Artemio DimasarnulfoAHMET - 05/21/2025 3:17 PM EDT Pt returned call, Verified d.o.b, reviewed pt contact information, updated any changes if needed., she reports for the past year, she constantly has burning in her vaginal Pt reports she is able tofeel it when she wipes. Pt denies any bleeding. She states she has a weak bladder for years, and she wears under de santiago, she reports if she tries to wear a pad, it hurts due to the bulge. Pt reports she is avoiding constipation, and as long as she can, she does not seem to have any issues with her bowels. However if it does get hard, it is very painful. Pt denies any pain in her abd, she states themajority of the pain/pressure/spasms are below her belly button in the pubic area. Pt is not sexually active. She reports she had a partial hysterectomy in yrs ago. Pt admits to breast tenderness and lumps' however is current with mammogram. Pt does continue with yearly pap's with PCP, who advised her the cervix is gone Pt had a pt aunt that had cervical CA. Pt was scheduled with [facility] 06/15/25 provided office contact information and location. Advised pt to bring ID and current insurance card. * Telephone Encounter - Constanza Palmer LPN - 05/21/2025 2:55 PM EDT 1st Attempt: Called patient left message for patient to return our call, to get her schd for an appointment. Patient can reach our office @ [phone] Monday through 8:00 AM - 4:00 PM and Monday 8:00 AM - 12:00 PM. * Telephone Encounter - Ligia Broussard - 05/21/2025 1:19 PM EDT New patient requesting female provider. Has Medicare and [place] [employer] supplement. She states forabout a year she has had vaginal bulging and believes she has thinning of the lining between her vagina and bowels. She states as long as her stools are loose she doesn't have an issue but if it is not then she has intense spasms. She states pressure is worse when lifting things. Spasms sometimes happen when she is just sitting in her recliner. Please contact. documented in this encounter Plan of Treatment Upcoming Encounters Date Type Department Care Team (Late st Contact Info) Description 06/16/2025 1:00 PM EDT Office Visit [facility] [place] [facility] [address] [facility] [address] [place] [phone] Iraida Altamirano MD [address] [facility] [address] [place] [address] documented as of this encounter Visit Diagnoses Not on filedocumented in this encounter
--- OUTSIDE RECORDS SUMMARY | 2025-06-02 14:46 | XMS_ITS | Clinical Summary ---
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 Name Role Phone Unavailable Primary Care Provider Unavailabl e Encounters Date Type Department Care Team Description 05/21/2025 Telephone [facility] [address] [facility] [address] [place] [phone] Iraida Altamirano MD from Last 3 Months Social History Tobacco Use Types Packs/Day Years Used Date Smoking Tobacco: Never Assessed Comments Unknown Sex and Gender Information Value Date Recorded Sex Assigned at Not on file Legal Sex Female 7:11 PM EDT Gender Identity Not on file Sexual Orientation Not on file Plan of Treatment Upcoming Encounters Date Type Department Care Team (Late st Contact Info) Description 06/16/2025 1:00 PM EDT Office Visit [facility] [address] [facility] [address] [place] [phone] Iraida Altamirano MD [address] [facility] [address] [place] [address] Health Maintenance Due Date Last Done Comments CT Colonography 1955 Colonoscopy 1955 FIT 1955 FOBT 1955 Sigmoidoscopy 1955 Mammogram 04/24/2015 04/24/2014 Pneumococcal Vaccine: 65+ Ye ars (2 of 2 - PPSV23) 03/08/2022 03/08/2021 Influenza Vaccine (#1) 2025 3, 09/21/2022, 08/09/2021, Additional history exists Colorectal Cancer Screening 08/14/2026 FIT-DNA 08/14/2026 08/14/2023
--- NOTE | 2025-06-02 15:05 | ECG_ITS ---
The [facility] Test Date: 2025-06-02 Pat Name: RAJ SOLOMON Department: Room: - Gender: Female Python Developer: : 1955 Requested By: LALA GONCALVES Order Number: [id number] Reading MD: KAMALJIT MORALES M.D. Measurements Intervals [place] Rate: 49 P: 49 RI: 198 QRS: 2 QRSD: 88 T: 53 QT: 446 QTc: 415 Interpretive Statements 1130 Sinus bradycardia 8102 Low QRS voltage in chest leads Abnormal ECG No previous ECG available for comparison Electronically Signed On 06-03-2025 13:54:23 EDT by KAMALJIT MORALES M.D.
--- NOTE | 2025-06-02 15:15 | ED.RECABL1 ---
HPI - Recheck/Abnormal Lab/Rx General Chief Complaint: Recheck/Abnormal Lab/Rx Stated Complaint: HIGH BLOOD PRESSURE SENT BY SACHA Time Seen by Provider: 06/02/25 14:56 Source: patient Mode of arrival: walk-in History of Present Illness HPI narrative: Patient comes into the ER today for hypertension. She has been on hypertension medication which is unchanged for the past several years. She states she does not typically take her blood pressure but she was monitoring her 's and decided to use the machine 3 days ago and her blood pressure systolic was running in the 200s. She states today it continued to be in the 200s so she decided to go to the nurse and at her PCP office Dr. Ahn. At that facility the nurse evaluated it. Have it checked at that facility her systolic was also in the 200s with diastolic was in the 100s they advised her to come to the ED for evaluation. Patient denied any chest pain or shortness of breath. She has not had any hematuria or urinary abnormalities. She is not lightheaded or dizzy. She has not had any vision changes no floaters or flashes or areas of vision loss. She states the last time she would have had her blood pressure taken prior to this event would have been back in December during her PCP checkup. At that time she states it was normal she does not know what the number was however. She has never had any cardiac pathology in the past. She does not do drugs she is not a smoker she does occasionally drink alcohol but nothing recently. Patient states she did wake up the other day, 2 days ago and was experiencing some muscle tightness in the left neck area. She is able to get in a position of comfort she states it does feel better when you are on the left side of the neck this seems to be in the upper trapezius area. No numbness or tingling in the left arm no shooting pain down the left arm she states the pain does not feel deep she denies a throbbing feeling she denies any throbbing or tearing pain in her back. Related Data Home Medications ?Medication ?Instructions ?Recorded ?Confirmed carvedilol 6.25 mg tablet 12.5 mg PO BID 09/18/23 06/02/25 diclofenac sodium 75 mg 75 mg PO BID 09/18/23 06/02/25 tablet,delayed release lisinopril 20 mg tablet 40 mg PO DAILY 09/18/23 06/02/25 pantoprazole 40 mg tablet,delayed 40 mg PO DAILY 09/18/23 06/02/25 release paroxetine HCl 40 mg tablet 40 mg PO DAILY 09/18/23 06/02/25 simvastatin 20 mg tablet 20 mg PO DAILY 09/18/23 06/02/25 zolpidem 10 mg tablet 10 mg PO DAILY 09/18/23 06/02/25 Allergies Allergy/AdvReac Type Severity Reaction Status Date / Time No Known Drug Allergies [facility] Verified [facility]/11[facility]24 16:[facility] Medical History (Updated 06/02/25 @ 18:53 by URIEL LINCOLN) Rotator cuff tear ?M75.100 - Unspecified rotator cuff tear or rupture of unspecified shoulder, not specified as traumatic (ICD-10) Urticaria ?L50.9 - Urticaria, unspecified (ICD-10) Plantar fasciitis ?M72.2 - Plantar fascial fibromatosis (ICD-10) Dislocation of right shoulder joint ?S43.004A - Unspecified dislocation of right shoulder joint, initial encounter (ICD-10) Myalgia ?M79.10 - Myalgia, unspecified site (ICD-10) Hip pain ?M25.559 - Pain in unspecified hip (ICD-10) Dyspnea ?R06.00 - Dyspnea, unspecified (ICD-10) Humerus fracture ?S42.309A - Unspecified fracture of shaft of humerus, unspecified arm, initial encounter for closed fracture (ICD-10) Chest pain ?R07.9 - Chest pain, unspecified (ICD-10) Arthralgia ?M25.50 - Pain in unspecified joint (ICD-10) Achilles tendinitis ?M76.60 - Achilles tendinitis, unspecified leg (ICD-10) Type 2 diabetes mellitus ?E11.9 - Type 2 diabetes mellitus without complications (ICD-10) Positive colorectal cancer screening using Cologuard test ?R19.5 - Other fecal abnormalities (ICD-10) Peripheral neuropathy ?G62.9 - Polyneuropathy, unspecified (ICD-10) Obesity ?E66.9 - Obesity, unspecified (ICD-10) Low back pain syndrome ?M54.50 - Low back pain, unspecified (ICD-10) Insomnia ?G47.00 - Insomnia, unspecified (ICD-10) Increased liver enzymes ?R74.8 - Abnormal levels of other serum enzymes (ICD-10) IBS (irritable bowel syndrome) ?K58.9 - Irritable bowel syndrome without diarrhea (ICD-10) Hypertension ?I10 - Essential (primary) hypertension (ICD-10) Hyperlipidemia ?E78.5 - Hyperlipidemia, unspecified (ICD-10) Hiatal hernia ?K44.9 - Diaphragmatic hernia without obstruction or gangrene (ICD-10) Gout ?M10.9 - Gout, unspecified (ICD-10) Fibrocystic disease of breast ?N60.19 - Diffuse cystic mastopathy of unspecified breast (ICD-10) Depression ?F32.A - Depression, unspecified (ICD-10) DJD (degenerative joint disease) ?M19.90 - Unspecified osteoarthritis, unspecified site (ICD-10) Anxiety ?F41.9 - Anxiety disorder, unspecified (ICD-10) Surgical History H/O vaginal hysterectomy ?Z90.710 - Acquired absence of both cervix and uterus (ICD-10) Hx of tonsillectomy ?Z90.89 - Acquired absence of other organs (ICD-10) H/O repair of rotator cuff ?Z98.890 - Other specified postprocedural states (ICD-10) H/O colonoscopy ?Z98.890 - Other specified postprocedural states (ICD-10) History of arthroplasty of right shoulder ?Z96.611 - Presence of right artificial shoulder joint (ICD-10) Hx of appendectomy ?Z90.49 - Acquired absence of other specified parts of digestive tract (ICD-10) Family History (Updated 09/18/23 @ 14:22 by Ewelina Lay RN) Other CAD (coronary artery disease) Family history of diabetes mellitus Family history of myocardial infarction Social History Within the past year, how often did you have a drink containing alcohol: 2-3 times a week Within the past year, how many standard drinks containing alcohol did you have on a typical day: 1 or 2 Within the past year, how often did you have six or more drinks on one occasion: never Total score: 0 Score interpretation: Questions 2 and 3 are 0. It can be assumed that the patient's drinking is below the recommended limits. However, please confirm the accuracy of the patient's alcohol intake over the last few months. Smoking status: Never smoker Second hand tobacco smoke exposure: No Non-prescribed substance use: denies use Previous occupational history: retired Highest level of school completed/degree received: high school graduate Little interest or pleasure in doing things: not at all Feeling down, depressed, or hopeless: not at all Gender Identity: female Exam Constitutional Vital Signs, click to edit/add: Last Vital Signs Temp 98.3 F 06/02/25 14:47 Pulse 62 06/02/25 19:04 Resp 16 06/02/25 19:04 BP 167/89 H 06/02/25 19:04 Pulse Ox 97 06/02/25 19:04 O2 Del Method Room Air 06/02/25 19:04 Common normals: no apparent distress General appearance: cooperative, comfortable, well kempt and well developed Nutritional appearance: overweight HENMT Common normals: normocephalic and head/scalp atraumatic Face and sinus: normal facial exam Nose: external nose normal, nares normal and no nasal discharge General ear: hearing grossly impaired Tympanic membrane: TMs normal bilaterally Mouth: oral and palatal mucosa normal, lip normal and tongue normal Eye Common normals: PERRL, EOMs intact bilaterally, conjunctivae normal and normal visual peres by confrontation Neck & C-Spine Common normals: full ROM, no lymphadenopathy, supple, no JVD, thyroid normal and no carotid bruits Chest Common normals: inspection of chest normal and palpation of chest normal Respiratory Common normals: normal respiratory effort and clear to auscultation bilaterally Cardio Common normals: regular rate, regular rhythm, S1 normal heart sound, S2 normal heart sound and no murmurs Bruits: no abdominal aortic bruits and no carotid bruits Peripheral pulses: pulses 2+ throughout GI Common normals: Normal to inspection, nondistended, normoactive bowel sounds present and soft to palpation Back & Pelvis Common normals: no CVA tenderness, thoracic and lumbar spine normal to inspection, no thoracic nor lumbar tenderness, thoraco-lumbar ROM normal and straight leg raise negative bilaterally Extremity General: normal exam except as noted Extremity image (back):  1. tenderness and spasm, upper trap Neuro Dwight Coma Scale: document GCS findings Common normals: oriented x3, CN's II-XII intact bilaterally, moves all extremities, no focal motor deficits and no sensory deficits noted Psych Common normals: mental status grossly normal, thought process normal, cooperative, affect normal and speech normal Course Consultations Consultation #1: Talked to hospitalist regarding admission. Accpeted into observation. Time: 18:15 Vital Signs Vital signs: Vital Signs Temperature 98.3 F 06/02/25 14:47 Pulse Rate 60 06/02/25 14:47 Respiratory Rate 18 06/02/25 14:47 Blood Pressure 250/110 H 06/02/25 14:47 Pulse Oximetry 96 06/02/25 14:47 Temperature 98.3 F 06/02/25 14:47 Pulse Rate 62 06/02/25 19:04 Respiratory Rate 16 06/02/25 19:04 Blood Pressure 167/89 H 06/02/25 19:04 Pulse Oximetry 97 06/02/25 19:04 Oxygen Delivery Method Room Air 06/02/25 19:04 MDM - Recheck/Abnormal Lab/Rx MDM Narrative Medical decision making narrative: Patient comes into the ER today for hypertension. She has been on hypertension medication which is unchanged for the past several years. She states she does not typically take her blood pressure but she was monitoring her 's and decided to use the machine 3 days ago and her blood pressure systolic was running in the 200s. She states today it continued to be in the 200s so she decided to go to the nurse and at her PCP office Dr. Ahn. At that facility the nurse evaluated it. Have it checked at that facility her systolic was also in the 200s with diastolic was in the 100s they advised her to come to the ED for evaluation. Patient denied any chest pain or shortness of breath. She has not had any hematuria or urinary abnormalities. She is not lightheaded or dizzy. She has not had any vision changes no floaters or flashes or areas of vision loss. She states the last time she would have had her blood pressure taken prior to this event would have been back in December during her PCP checkup. At that time she states it was normal she does not know what the number was however. She has never had any cardiac pathology in the past. She does not do drugs she is not a smoker she does occasionally drink alcohol but nothing recently. Patient states she did wake up the other day, 2 days ago and was experiencing some muscle tightness in the left neck area. She is able to get in a position of comfort she states it does feel better when you are on the left side of the neck this seems to be in the upper trapezius area. No numbness or tingling in the left arm no shooting pain down the left arm she states the pain does not feel deep she denies a throbbing feeling she denies any throbbing or tearing pain in her back. Alert and oriented no acute distress. HEENT exam is unremarkable pupils equal reactive heart lung exams are clear she does have tenderness in the left upper trapezius area. She has good range of motion of all of her joints. No CVA tenderness. Abdomen is soft and nontender. Patient is intact. Basically her exam is normal. Labetalol was given to patient to help control her blood pressure labs EKG and cardiac workup was initiated. 69-year-old female presented to ED with markedly elevated blood pressure noted on arrival. Patient asymptomatic with no chest pain, shortness of breath, focal neurological deficits, vision changes, or acute kidney injury on initial evaluation. Workup including CBC, CMP, troponin, EKG, and urinalysis was unremarkable, with no clear evidence of acute end-organ damage. Patient received multiple doses of IV antihypertensives: hydralazine 10 mg IV ?2 and metoprolol 10 mg IV ?1. Despite therapy, BP decreased only partially to 200/94 mmHg and remains significantly above safe outpatient thresholds. Given persistent severe hypertension despite ED management, advanced age, and increased risk for hypertensive emergency, patient requires admission for continued monitoring, titration of oral antihypertensives, and further evaluation for secondary causes. Plan for admission was in place. However she is decided she wants to leave AGAINST MEDICAL ADVICE. With the patient and she does understand the risks of leaving, including stroke, myocardial infarction, aortic dissection, renal failure, and , were explained in detail to the patient. Patient verbalized understanding of these risks, demonstrated decision-making capacity, and elected to leave the hospital against medical advice. AMA form signed and witnessed. Patient encouraged to follow up with primary care immediately and return to ED for any new or worsening symptoms. Medical Records Attestation: I reviewed the patient's medical records. Lab Data Attestation: I reviewed the patient's lab results. Labs: Lab Results 08/11/25 08/11/25 Range/Units 15:17 17:14 WBC 10.0 (4.0-11.0) 10^3/uL RBC 3.71 L (4.20-5.40) 10^6/uL Hgb 11.9 L (12.0-16.0) g/dL Hct 35.3 L (36.0-48.0) % MCV 95.1 (81.0-99.0) fL MCH 32.1 (26.7-34.0) pg MCHC 33.7 (29.9-35.2) g/dL RDW 12.4 (11.0-15.0) % Plt Count 304 (150-450) 10^3/uL MPV 9.6 (9.5-13.5) fL Neut % (Auto) 70.0 (43.0-75.0) % Lymph % (Auto) 20.8 (20.5-60.0) % [place] % (Auto) 7.1 (1.7-12.0) % Eos % (Auto) 1.2 (0.9-7.0) % Baso % (Auto) 0.6 (0.2-2.0) % Neut # (Auto) 7.0 H (1.4-6.5) 10^3/uL Lymph # (Auto) 2.1 (1.2-3.8) 10^3/uL [place]uel # (Auto) 0.7 (0.3-0.8) 10^3/uL Eos # (Auto) 0.1 (0.0-0.7) 10^3/uL Baso # (Auto) 0.1 (0.0-0.1) 10^3/uL Abs Immat Gran (auto) 0.03 (0.00-0.03) 10^3/uL Imm/Tot Granulo (auto) 0.3 (0.0-0.5) % PT 10.8 (9.0-11.6) sec INR 1.02 Sodium 136 (136-145) mmol/L Potassium 4.1 (3.5-5.1) mmol/L Chloride 102 (98-107) mmol/L Carbon Dioxide 27.7 (21.0-32.0) mmol/L Anion Gap 10.4 BUN 19.0 H (7.0-18.0) mg/dL Creatinine 0.94 (0.55-1.02) mg/dL Est GFR ( Amer) >60 (>=60 mL/min/1.73m^2) Est GFR (Non-Af Amer) 59 L (>=60 mL/min/1.73m^2) BUN/Creatinine Ratio 20.2 Glucose 105 (74-106) mg/dL Calcium 9.5 (8.5-10.1) mg/dL Magnesium 1.9 (1.8-2.4) mg/dL Total Bilirubin 0.4 (0.2-1.0) mg/dL AST 16 (15-37) U/L ALT 23 (14-59) U/L Alkaline Phosphatase 97 (46-116) U/L Troponin I High Sens 7.3 9.5 (4.0-51.3) pg/mL NT-Pro-B Natriuret Pep 649.0 (<=900.0) pg/mL Total Protein 7.5 (6.4-8.2) g/dL Albumin 4.0 (3.4-5.0) g/dL Globulin 3.5 g/dL Albumin/Globulin Ratio 1.1 TSH 2.221 (0.358-3.740) uIU/mL ECG Data Attestation: I personally reviewed and interpreted this ECG as follows: Discharge Plan Discharge Stand Alone Forms: Portal Instructions Chief Complaint: Recheck/Abnormal Lab/Rx Clinical Impression: Asymptomatic hypertensive urgency Patient Disposition: Left Against Medical Advice Time of Disposition Decision: 18:52 Condition: Good Prescriptions / Home Meds: No Action carvedilol 6.25 mg tablet 12.5 mg PO BID Rx Instructions: must administer with a meal/food diclofenac sodium 75 mg tablet,delayed release (DR/EC) 75 mg PO BID lisinopril 20 mg tablet 40 mg PO DAILY pantoprazole 40 mg tablet,delayed release (DR/EC) 40 mg PO DAILY paroxetine HCl 40 mg tablet 40 mg PO DAILY simvastatin 20 mg tablet 20 mg PO DAILY zolpidem 10 mg tablet 10 mg PO DAILY Print Language: Setswana Instructions: Hypertensive Crisis (ED) Referrals: Emmett Watson MD [Primary Care Provider, Family Practice] - As soon as possible Referral Note: See PCP tomorrow. If you change your mind regarding further treatment tonight, please return. Discharge Date/Time: 06/02/25 19:04
[2025-06-02] MEDS: METOPROLOL TARTRATE 5 MG/5 ML VIAL 10 MG IVP (15:19)
[2025-06-02 15:38] LABS: Hematocrit 35.3 % (36.0-48.0); Hemoglobin 11.9 g/dL (12.0-16.0); Immature Granulocytes Abs Auto 0.03 10^3/uL (0.00-0.03); Immature Granulocytes Pct Auto 0.3 % (0.0-0.5); Lymphocytes Absolute Auto 2.1 10^3/uL (1.2-3.8); Mean Corpuscular HGB Conc 33.7 g/dL (29.9-35.2); Mean Corpuscular Hemoglobin 32.1 pg (26.7-34.0); Mean Corpuscular Volume 95.1 fL (81.0-99.0); Platelet Count 304 10^3/uL (150-450); Red Blood Count 3.71 10^6/uL (4.20-5.40); White Blood Count 10.0 10^3/uL (4.0-11.0)
--- NOTE | 2025-06-02 15:40 | CT_ITS ---
The [address] [address] Patient Name: RAJ SOLOMON MRN: [id number] date: 1955 Sex: F Assigned Patient Location: ER Current Patient Location: ER Accession/Order Number: [id number] Exam Date: 06/02/2025 15:56 Report Date: 06/02/2025 15:58 At the request of: SHANNAN TREVINO Procedure: CT head/brain wo con CT BRAIN WITHOUT CONTRAST: CLINICAL HISTORY: elevated bp COMPARISON: CT brain 01/11/2024 TECHNIQUE: Contiguous axial unenhanced images were obtained through the brain. This CT exam was performed using one or more following dose reduction techniques: Automated exposure control, adjustment of the mA and/or kV according to patient size, or use of iterative reconstruction technique. FINDINGS: There is no evidence of midline shift, intra or extra-axial fluid collection, hemorrhage or CT evidence of stroke. Cortical atrophy with chronic microvascular ischemic changes. Posterior fossa appears unremarkable. Visualized intraorbital contents demonstrate no acute findings. Visualized paranasal sinuses are clear. The surrounding soft tissues are normal. CT/CT head/brain wo con IMPRESSION: NO ACUTE INTRACRANIAL ABNORMALITY. Impression dictated by: Fareed Nguyen Jr., D.O. 06/02/2025 3:58 PM Dictation Location: [place] [address] Electronically authenticated by: [id number] Y Date: 06/02/2025 15:58
--- NOTE | 2025-06-02 15:40 | XR_ITS ---
The [address] [address] Patient Name: RAJ SOLOMON MRN: [id number] date: 1955 Sex: F Assigned Patient Location: ER Current Patient Location: ER Accession/Order Number: [id number] Exam Date: 06/02/2025 15:48 Report Date: 06/02/2025 15:49 At the request of: SHANNAN TREVINO Procedure: XR chest 1V Single view chest: CLINICAL HISTORY: HTN COMPARISON: Chest 04/14/2020 FINDINGS: Cardiomegaly is now present. Lungs are clear. No free air. XR/XR chest 1V IMPRESSION: QUESTIONABLE NEW CARDIOMEGALY. IF UNDERLYING PERICARDIAL EFFUSION IS OF CLINICAL CONCERN FURTHER EVALUATION WITH CARDIAC ECHO IS SUGGESTED. Impression dictated by: Fareed Nguyen Jr. DAnabellOAnabell 06/02/2025 3:49 PM Dictation Location: [place] [address] Electronically authenticated by: [id number] Y Date: 06/02/2025 15:49
[2025-06-02 15:51] LABS: INR 1.02; Prothrombin Time 10.8 sec (9.0-11.6)
[2025-06-02 15:59] LABS: Alanine Aminotransferase 23 U/L (14-59); Albumin Globulin Ratio 1.1; Albumin Level 4.0 g/dL (3.4-5.0); Alkaline Phosphatase 97 U/L (46-116); Anion Gap 10.4; Aspartate Amino Transferase 16 U/L (15-37); Blood Urea Nitrogen 19.0 mg/dL (7.0-18.0); Calcium 9.5 mg/dL (8.5-10.1); Carbon Dioxide 27.7 mmol/L (21.0-32.0); Chloride 102 mmol/L (98-107); Estimated GFR (African America >60 (>=60 mL/min/1.73m^2); Estimated GFR (Non-African Ame 59 (>=60 mL/min/1.73m^2); Globulin 3.5 g/dL; Glucose 105 mg/dL (74-106); Magnesium 1.9 mg/dL (1.8-2.4); NT Pro B Type Natriuretic Pept 649.0 pg/mL (<=900.0); Potassium 4.1 mmol/L (3.5-5.1); Sodium 136 mmol/L (136-145); Thyroid Stimulating Hormone 2.221 uIU/mL (0.358-3.740); Total Protein 7.5 g/dL (6.4-8.2)
[2025-06-02] MEDS: HYDRALAZINE HCL 20 MG/ML VIAL 10 MG IVP ×2 (16:10→18:05)
--- NOTE | 2025-06-02 17:07 | CT_ITS ---
The [address] [address] Patient Name: RAJ SOLOMON MRN: [id number] date: 1955 Sex: F Assigned Patient Location: ER Current Patient Location: ER Accession/Order Number: [id number] Exam Date: 06/02/2025 17:14 Report Date: 06/02/2025 17:19 At the request of: SHANNAN TREVINO Procedure: CT angio chest CTA Chest with PE protocol TECHNIQUE: Axial imaging with 2-D and 3-D reconstruction. 100 cc of Omnipaque [address] exam was performed using one or more the following dose reduction techniques: Automated exposure control, adjustment of the MA and/or Kv according to patient size, or use of the iterative reconstruction technique. History: Elevated blood pressure. Headache. Cardiomegaly COMPARISON: None THYROID: Unremarkable TRACHEA AND BRONCHI: Patent ESOPHAGUS: Unremarkable. HEART: Moderate cardiomegaly PERICARDIAL EFFUSION: Small pericardial effusion CORONARY ARTERY CALCIFICATION: None MEDIASTINUM: No adenopathy. No pneumoperitoneum. No mediastinal hematoma. PULMONARY JOSEPH: No hilar mass or adenopathy is seen. THORACIC AORTA Unremarkable PULMONARY EMBOLUS: None LUNG NODULE None LUNGS: Lungs are clear PLEURAL EFFUSION: None PNEUMOTHORAX: No pneumothorax seen. CHEST WALL: No abnormality AXILLA: Unremarkable BONY STRUCTURES thoracic spine degeneration UPPER ABDOMEN: Tiny hepatic dome cyst. CT/CT angio chest IMPRESSION: No acute pulmonary embolus. Moderate cardiomegaly. Small pericardial effusion. Impression dictated by: Hamilton Will M.D. 06/02/2025 5:19 PM Dictation Location: [place] Electronically authenticated by: [id number] Y Date: 06/02/2025 17:19
== END 2025-06-02 19:04 | disposition left against medical advice (07) ==
PROVIDERS: Physician Assistant; Emergency Provider Emergency Medicine; PCP Family Medicine
DX: I16.0 Hypertensive urgency (principal); Z53.29 Procedure and treatment not carried out because of patient's decision for other reasons; M54.2 Cervicalgia
CPT/HCPCS: 36415; 70450; 71045; 71275; 80053; 81001; 83735; 83880; 84443; 84484; 85025; 85610; 93005; 96374; 96375; 96376; 99285; J0360; Q9967

== ENCOUNTER 2025-08-11 13:39 | Outpatient (OUT) | payer MEDICARE, SELFPAY ==
--- NOTE | 2025-08-11 13:46 | XR_ITS ---
The [address] [address] Patient Name: RAJ SOLOMON MRN: [id number] date: 1955 Sex: F Assigned Patient Location: [facility] Current Patient Location: [facility] Accession/Order Number: [id number] Exam Date: 08/11/2025 13:50 Report Date: 08/11/2025 15:46 At the request of: NENA SIERRA DPM Procedure: XR foot RT min 3V RIGHT FOOT - 3 views CLINICAL DATA: Chronic heel pain. History of ruptured Achilles tendon 2 years ago. COMPARISON: Right ankle 01/11/2024 Standing AP, lateral and oblique views were obtained. There is mild hallux valgus deformity an some associated degenerative change. There is no acute fracture or dislocation. Posterior and plantar calcaneal spurs are again visualized. There are no significant soft tissue abnormalities. XR/XR foot RT min 3V IMPRESSION: CALCANEAL SPURS. BUNION DEFORMITY. NO ACUTE BONY FINDINGS. Impression dictated by: Vivian Tyler M.D. 08/11/2025 3:46 PM Dictation Location: [place] [address] Electronically authenticated by: [id number] Y Date: 08/11/2025 15:46
--- OUTSIDE RECORDS SUMMARY | 2025-08-11 13:49 | XMS_ITS | CCD ---
Author Organization [facility] Care Team Providers Care Counseling Program Leader Name Role Phone ELATTAR, OSAMA Admitting Unavailable ELATTAR, OSAMA Attending Unavailable LALA WATSON Primary Care Unavailable SELF, REFERRED Referring Unavailable CA Procedure Practitioner Unavailab le KENNETHATTAR, OSAMA Surgeon Unavailable CA Procedure Practitioner Unavailab AYANNA Back Surgeon Unavailable ADILENE LIU Referring Unavailable LALA WATSON Primary Care Unavailable ELATTAR OSAMA Attending Unavailable ELATTAR, OSAMA Admitting Unavailable CA Procedure Practitioner Unavailab le ELATTAR, OSAMA Surgeon Unavailable ELATTAR, OSAMA Admitting Unavailable KIMBERLYN, OSAMA Attending Unavailable LALA WATSON Referring Unavailable LALA WATSON Primary Care Unavailable CA Procedure Practitioner Unavailab KRISHNA Aguilar Surgeon Unavailable Lala Watson Primary Care Provider [phone] Lala Watson MD Primary Care Provider [phone] DR LALA WATSON Attending Unavailable DR LALA WATSON Primary Care Unavailable SACHA, DR REEVES Admitting Unavailable SACHA, DR REEVES Primary Care Unavailable SEA, DR ELIZABETH Hernandez Attending Unavailable SEA, DR ELIZABETH Hernandez Admitting Unavailable ZIEBJOYCE, DR PROSPER Huffman Consulting Unavailable SEA, DR ELIZABETH Hernandez Consulting Unavailable DR LALA WATSON Admitting Unavailable SACHA, DR REEVES Attending Unavailable SACHA, DR REEVES Consulting Unavailable DR LALA WATSON Primary Care Unavailable EMILIANO, DR COLLETTE Romero Consulting Unavailable Lala Watson Primary Care Physician [phone] Eron MULLER Attending Unavailable NILLEron R Attending Unavailable Lala Watson Referring Unavailable Eron MULLER R Attending Unavailable Eron MULLER R Attending Unavailable ELIZABETH FLORES Attending Unavailable ELIZABETH FLORES Referring Unavailable LALA WATSON Primary Care Unavailable ELIZABETH FLORES Referring Unavailable LALA WATSON Primary Care Unavailable ELIZABETH FLORES Attending Unavailable ELIZABETH FLORES Referring Unavailable LALA WATSON Primary Care Unavailable Lala Watson MD Primary Care Provider [phone] Unavailable Primary Care Provider UnavailLala Zuluaga MD Primary Care Provider [phone] IRAIDA CARRILLO Attending Unavailable IRAIDA CARRILLO Attending Unavailable IRAIDA CARRILLO Attending Unavailable Medications Current Medications Medication Drug [...] Refills(s) 0 Start Date: 08/31/23 Status: Ordered estradiol 0.004 mg vaginal insert (5 sources) Estrogen Start: 07-10-2025 Estradiol (Imv exxy Maintenance Pack) 4 MCG insert Indications: Postmenopausal atrophic vaginitis Insert 1 suppository into the vagina 2 (two) times a week 8 each 2 07/10/2025 Active Start: 07-10-2025 Estradiol (Imv exxy Maintenance Pack) 4 MCG insert Indications: Postmenopausal atrophic vaginitis Insert 1 suppository into the vagina 2 (two) times a week 8 each 2 07/10/2025 Active Start: 07-10-2025 Estradiol (Imv exxy Maintenance Pack) 4 MCG insert Indications: Postmenopausal atrophic vaginitis Insert 1 suppository into the vagina 2 (two) times a week 8 each 2 07/10/2025 Active levothyroxine sodium 0.025 mg oral tablet (2 sources) l-Thyroxine take 1 tablet by mouth once daily levothyroxine (SYNTHROID) 25 MCG tablet Take 1 tablet by mouth Daily Pt unsure of dosage 0 Active liothyronine sodium 0.005 mg oral tablet (2 sources) l-Triiodothyronine Start: 024 liothyronine (CYTOMEL) 5 MCG tablet TAKE 2 TABLETS BY MOTUH ON AN EMPTY STOMACH ONCE A DAY 0 03/07/2024 Active lisinopril 20 mg oral tablet (6 sources) Angiotensin Converting Enzyme Inhibitor Start: 016 lisinopril (PRINIVIL;ZESTRIL) 20 MG tablet 2 tablets 0 05/04/2016 Active lorcaserin hydrochloride 10 mg oral tablet (1 source) Serotonin-2c Receptor Agonist Start: 015 take 1 tablet by mouth twice daily Lorcaserin HCl 10 MG TABS Indications: Obesity (BMI 30.0-34.9) Take 1 tablet by mouth 2 times daily 60 tablet 3 04/28/2015 Active pantoprazole 40 mg delayed release oral tablet (6 sources) Proton Pump Inhibitor Start: 014 pantoprazole (PROTONIX) 40 MG tablet PARoxetine hydrochloride [...] Inhibitor Start: simvastatin (ZOCOR) 20 MG tablet terconazole 4 mg/ml vaginal cream (2 sources) Azole Antifungal Start: End: terconazole (Terazol 7) 0.4 % vaginal cream Indications: Vulvovaginal Candidiasis Insert 1 applicator into the vagina at bedtime for 7 days 45 g 2 07/07/2025 07/14/2025 Active triamcinolone acetonide 1 mg/ml topical cream (8 sources) Corticosteroid Start: triamcinolone (Kenalog) 0.1 % cream Indications: Vaginal burning Apply topically in the morning and before bedtime. 30 g 2 06/16/2025 Active zolpidem tartrate 10 mg oral tablet (6 sources) gamma-Aminobutyric Acid-ergic Agonist Start: zolpidem (AMBIEN) 10 MG tablet Completed/Discontinued Medications Medication Drug Class(es) Dates Sig (Normalized) Sig (Original) azithromycin 500 mg oral tablet (4 sources) Macrolide Antimicrobial Start: 07-18-2025 End: 07-28-2025 take 1 tablet by mouth once daily azithromycin (Zithromax) 500 MG tablet Indications: Acute vaginitis Take 1 tablet (500 mg) by mouth Daily for 10 days 10 tablet 07/18/2025 07/28/2025 Start: 06-20-2025 End: 06-30-2025 take 1 tablet by mouth once daily azithromycin (Zithromax) 500 MG tablet Indications: Acute vaginitis Take 1 tablet (500 mg) by mouth Daily for 10 days 10 tablet 1 06/20/2025 06/30/2025 Active fluconazole 150 mg oral tablet (2 sources) Azole Antifungal Start: 06-16-2025 End: 06-16-2025 take 1 tablet by mouth once fluconazole (Diflucan) 150 MG tablet Indications: Vaginal burning Take 1 tablet (150 mg) by mouth 1 (one) time for 1 dose 5 tablet 06/16/2025 06/16/2025 Problems Active Problems Problem Classification Problem Date [...] hypertension (2 sources) Hypertensive disorder 03-17-2021 Chronic Genitourinary symptoms and ill-defined conditions (6 sources) Urinary incontinence; Translations: [Unspecified urinary incontinence] 06-16-2025 Chronic Gout and other crystal arthropathies (3 sources) Gout, unspecified; Translations: [Gout] Onset: 05-04-2022 03-17-2021 Chronic Inflammatory diseases of female pelvic organs (10 sources) Acute vaginitis; Translations: [Acute vaginitis] 06-20-2025 Episodic Joint disorders and dislocations; trauma-related (4 sources) Unspecified internal derangement of unspecified knee; Translations: [UNS INTERNAL DERANGEMENT UNS KNEE] Onset: 05-02-2022 Chronic Menopausal disorders (4 sources) Atrophic vaginitis; Translations: [Postmenopausal atrophic vaginitis] 07-08-2025 Chronic Mood disorders (2 sources) Depressive disorder 03-17-2021 Chronic Nonmalignant breast conditions (2 sources) Fibrocystic disease of breast 03-17-2021 Chronic Nonmalignant breast conditions (4 sources) Breast lump; Translations: [Unspecified lump in unspecified breast] 06-16-2025 Episodic Nonspecific chest pain (2 sources) Chest pain [...] (2 sources) Plantar fasciitis 11-16-2022 Episodic Other female genital disorders (2 sources) Burning sensation of vagina; Translations: [Other specified conditions associated with female genital organs and menstrual cycle] 06-16-2025 Episodic Other gastrointestinal disorders (2 sources) Irritable bowel syndrome 03-17-2021 Chronic Other gastrointestinal disorders (1 source) Abnormal feces; Translations: [Other fecal abnormalities] Onset: 09-05-2023 Episodic Other gastrointestinal disorders (2 sources) Hard stool; Translations: [Other fecal abnormalities] 06-16-2025 Episodic Other liver diseases (2 sources) Elevated [...] malignant neoplasm of rectum] Onset: 05-04-2022 Episodic Prolapse of female genital organs (6 sources) Disorder of rectum; Translations: [Rectocele] 07-04-2025 Chronic Residual codes; unclassified (1 source) Family history [...] Test Name Value Interpretation Reference Range Facility Laboratory - Microbiology an d Antimicrobial susceptibilityon 06-20-2025 A. vaginae DNA JOSE DAVID+probe Ql (Vag fld) Low - 0 Score [facility] Bacterial vaginosis associated bacterium 2 DNA JOSE DAVID+probe Ql (Vag fld) Low - 0 Score [facility] C. albicans DNA JOSE DAVID+probe Ql (Vag fld) Negative [facility] C. glabrata DNA JOSE DAVID+probe Ql (Vag fld) Negative [facility] C. trachomatis DNA JOSE DAVID+probe Ql (Unsp spec) Negative [facility] M. genitalium DNA JOSE DAVID+probe Ql (Unsp spec) Negative Negative [facility] M. hominis DNA JOSE DAVID+probe Ql (Unsp spec) Negative Negative [facility] Megasphaera sp type 1 DNA JOSE DAVID+probe Ql (Vag fld) Low - 0 Score [facility] Comment on above: Calculate total scor e by adding the 3 individual bacterial vaginosis (BV) marker scores together. Total score is interpreted as follows: Total score 0-1: Indicates the absence of BV. Total score 2: Indeterminate for BV. Additional clinical data should be evaluated to establish a diagnosis. Total score 3-6: Indicates the presence of BV. N. gonorrhoeae DNA JOSE DAVID+probe Ql (Vag fld) Negative Negative [facility] T. vaginalis DNA JOSE DAVID+probe Ql (Vag fld) Negative Negative [facility] Ureaplasma sp DNA JOSE DAVID+probe Ql (Unsp spec) Positive Abnormal Negative [facility] No Panel Informationon 06-20 Interpretation and review of laboratory results Abnormal [facility] Test(s) 851033-Psellxvqdc hominis JOSE DAVID; 337204-Cfjltddwlj spp JOSE DAVID was developed and its performance characteristics determined by [employer]. It has not been cleared or approved by the Food and Drug Administration. Performed at: 01 - [address] [id number] [employer] Repairer: Flip Barros MD, Phone: [phone] [facility] Test(s) 787100- Atopobium vaginae; 470636- BVAB 2; 614783- Megasphaera 1 was developed and its performance characteristics determined by [employer]. It has not been cleared or approved by the Food and Drug Administration. Test(s) 038854-Fknrssb albicans, JOSE DAVID; 067371-Qqkjhrj glabrata, JOSE DAVID was developed and its performance characteristics determined by [facility]. It has not been cleared or approved by the Food and Drug Administration. Performed at: - [address] [id number] [employer] Repairer: Flip Barros MD, Phone: [phone] [facility] Laboratory - Cytologyon 05-24 [employer] Vice President Cyto stain Nom (Cvx/Vag) [ID] Comment [facility] Comment on above: Roula Dupree, Cyto logist (ASCP) Cytology report Cyto stain Doc (Cvx/Vag) Comment [facility] Comment on above: NEGATIVE FOR INTRAEP ITHELIAL LESION OR MALIGNANCY. Cytology report Cyto stain.thin prep Doc (Cvx/Vag) Comment [facility] Comment on above: This liquid based Th inPrep(R) pap test was screened with the use of an image guided system. Statement of adequacy Cyto stain (Cvx/Vag) [Interp] Comment [facility] Comment on above: Satisfactory for vinicius luation. No endocervical component is identified. Laboratory - Microbiology an d Antimicrobial susceptibilityon 06-19-2025 HPV 16+18+31+33+35+39+45+ 51+52+56+58+59+66+68 DNA Probe+sig amp Ql (Cvx) Negative Negative [facility] Comment on above: This nucleic acid am plification test detects fourteen high- risk HPV types (16,18,31,33,35,39,45,51,52,56,58,59,66,68) without differentiation. Microscopic observation Other stain Nom (Unsp spec) . [facility] Laboratory - Miscellaneous t estson 06-19-2025 Service comment (Unsp spec) [Interp] Comment [facility] Comment on above: The Pap smear is a s creening test designed to aid in the detection of premalignant and malignant conditions of the uterine cervix. It is not a diagnostic procedure and should not be used as the sole means of detecting cervical cancer. Both false-positive and false-negative reports do occur. No Panel Informationon 06-19 Diagnosis ICD code [Identifier] Comment [facility] Comment on above: Z01.419 Z12.4 Performed at: - [facility] [address] [place], [place] [id number] [employer] Inspector Repairer: Mazin Mcconnell MD, Phone: [phone] Performed at: - [facility] [address], [place] [id number] [employer] Inspector Repairer: Sophy Dave MD, Phone: [phone] Performed at: - [facility] [address], [place] [id number] [employer] Inspector Repairer: Sophy Dave MD, Phone: [phone] Specimen Comment: No. of containers..01 ThinPrep Vial [facility] [employer] CT ABDOMEN PELVIS W IV CONTR Zeyad [...] is unremarkable. The uterus is surgically absent. PERITONEUM/MESENTERY/ BOWEL: The stomach is unremarkable. There is no bowel obstruction. There is no bowel wall thickening. There is diverticulosis without evidence of diverticulitis. BONES/SOFT TISSUES: There is no acute osseous or soft tissue abnormality. IMPRESSION: 1. No acute intra-abdominal or pelvic process. 2. Diverticulosis without evidence of diverticulitis. Interpreted by: Ryan Hoyt MD Signed by: Ryan Hoyt MD 05/24/24 Final result Normal [facility] CBC with Auto Differentialon 05-23-2024 Basophils (Bld) [#/Vol] 0.05 10*3/uL [facility] Basophils/100 WBC (Bld) 1 % 0 - 2 % [facility] Eosinophils (Bld) [#/Vol] 0.11 10*3/uL [facility] Eosinophils/100 WBC (Bld) 1 % 1 - 4 % [facility] Erythrocyte distribution width (RBC) [Ratio] 12.3 % 11.8 - 14.4 % [facility] Hematocrit (Bld) [Volume fraction] 36.4 % 36.3 - 47.1 % [facility] Hemoglobin (Bld) [Mass/Vol] 11.8 g/dL Low 11.9 - 15.1 g/dL [facility] Immature granulocytes (Bld) [#/Vol] 0.03 10*3/uL [facility] Immature granulocytes/100 WBC (Bld) 0 % 0 [facility] Interpretation and review of laboratory results Abnormal [facility] Lymphocytes/100 WBC (Bld) 28 % 24 - 43 % [facility] Lymphocytes/100 WBC (Bld) 2.73 % [facility] MCH (RBC) [Entitic mass] 31.9 pg 25.2 - 33.5 pg [facility] MCHC (RBC) [Mass/Vol] 32.4 g/dL 28.4 - 34.8 g/dL [facility] MCV (RBC) [Entitic vol] 98.4 fL 82.6 - 102.9 fL [facility] Monocytes/100 WBC (Bld) 6 % 3 - 12 % [facility] Monocytes/100 WBC (Bld) 0.62 % [facility] Neutrophils/100 WBC (Bld) 64 % 36 - 65 % [facility] Nucleated RBC/100 WBC (Bld) [Ratio] 0.0 % 0.0 per 100 WBC [facility] Platelet mean volume (Bld) [Entitic vol] 8.2 fL 8.1 - 13.5 fL [facility] Platelets (Bld) [#/Vol] 323 10*3/uL [facility] RBC (Bld) [#/Vol] 3.70 10*6/uL Low 3.95 - 5.1 1 m/uL [facility] Segmented neutrophils/100 WBC (Bld) 6.29 % [facility] WBC other (Bld) [#/Vol] 9.8 [facility] CBC with Diffon 05-23-2024 Abs. Basophil 0.05 k/uL Normal 0.00-0.20 [facility] Comment on above: Performed By: #### C P, CDP #### [facility] [address] [place] [address] [place] [address] [employer] Inspector Repairer: Collette Zhang MD Abs.Imm.Granulocyte 0.03 k/uL Normal 0.00-0.30 [facility] Comment on above: Performed By: #### C P, CDP #### [facility] [address] [place] [address] Dr. [place], [place] [address] [employer] Inspector Repairer: Collette Zhang MD Abs.Neutrophil (Seg) 6.29 k/uL Normal 1.50-8.10 [facility] Comment on above: Performed By: #### C P, CDP #### [address] [place], [place] [address] [employer] Inspector Repairer: Collette Zhang MD Basophils/100 WBC (Bld) 1 % Normal 0-2 [facility] Comment on above: Performed By: #### C P, CDP #### [facility] [address] [place] [address] Dr. [place], [facility]83 Sand[employer] Inspector Repairer: Collette Zhang MD Eosinophils (Bld) [#/Vol] 0.11 10*3/uL Normal 0.00-0.44 [facility] Comment on above: Performed By: #### C P, CDP #### [facility] [address] [place], [facility]83 [employer] Inspector Repairer: Collette Zhang MD Eosinophils/100 WBC (Bld) 1 % Normal 1-4 [facility] Comment on above: Performed By: #### C P, CDP #### [address] [place], [place] [id number] [employer] Inspector Repairer: Collette Zhang MD Erythrocyte distribution width (RBC) [Ratio] 12.3 % Normal 11.8-14.4 [facility] Comment on above: Performed By: #### C P, CDP #### [address] [place], [place] [id number] [employer] Inspector Repairer: Collette Zhang MD Hematocrit (Bld) [Volume fraction] 36.4 % Normal 36.3-47.1 [facility] Comment on above: Performed By: #### C P, CDP #### [address] [place] [address] [employer] Inspector Repairer: Collette Zhang MD Hemoglobin (Bld) [Mass/Vol] 11.8 g/dL Low 11.9-15.1 [facility] Comment on above: Performed By: #### C P, CDP #### [address] [place] [address] Sandstone Inspector Repairer: Collette Zhang MD Immature granulocytes/100 WBC (Bld) 0 % Normal 0 [facility] Comment on above: Performed By: #### C P, CDP #### [address] [place], [place] [address] [employer] Inspector Repairer: Collette Zhang MD Lymphocytes (Bld) [#/Vol] 2.73 10*3/uL Normal 1.10-3.70 [facility] Comment on above: Performed By: #### C P, CDP #### [address] [place] [address] Sandstone Inspector Repairer: Collette Zhang MD Lymphocytes/100 WBC (Bld) 28 % Normal 24-43 [facility] Comment on above: Performed By: #### C P, CDP #### [facility] [address] [place], [place] [id number] [employer] Inspector Repairer: Collette Zhang MD MCH (RBC) [Entitic mass] 31.9 pg Normal 25.2-33.5 [facility] Comment on above: Performed By: #### C P, CDP #### [address] [place], [facility]83 Sand[employer] Inspector Repairer: Collette Zhang MD MCHC (RBC) [Mass/Vol] 32.4 g/dL Normal 28.4-34.8 [facility] Comment on above: Performed By: #### C P, CDP #### [address] [place] [id number] Sand[employer] Inspector Repairer: Collette Zhang MD MCV (RBC) [Entitic vol] 98.4 fL Normal 82.6-102.9 [facility] Comment on above: Performed By: #### C P, CDP #### [address] [place], [place] [address] [employer] Inspector Repairer: Collette Zhang MD Monocytes (Bld) [#/Vol] 0.62 10*3/uL Normal 0.10-1.20 [facility] Comment on above: Performed By: #### C P, CDP #### [address] [place], [facility]83 Sand[employer] Inspector Repairer: Collette Zhang MD Monocytes/100 WBC (Bld) 6 % Normal 3-12 [facility] Comment on above: Performed By: #### C P, CDP #### [address] [place], [place] [id number] [employer] Inspector Repairer: Collette Zhang MD Neutrophil (Seg) 64 % Normal 36-[address] [facility] Comment on above: Performed By: #### C P, CDP #### [address] [place] [address] Sandstone Inspector Repairer: Collette Zhang MD NRBC Automated 0.0 per 100 WBC Normal 0.0 [facility] Comment on above: Performed By: #### C P, CDP #### [facility] [address] [place], [place] [id number] [employer] Inspector Repairer: Collette Zhang MD Platelet mean volume (Bld) [Entitic vol] 8.2 fL Normal 8.1-13.5 [facility] Comment on above: Performed By: #### C P, CDP #### [facility] [address] [place], [place] [address] [employer] Inspector Repairer: Collette Zhang MD Platelets (Bld) [#/Vol] 323 10*3/uL Normal 138-453 [facility] Comment on above: Performed By: #### C P, CDP #### [address] [place], [place] [address] Sand[employer] Inspector Repairer: Collette Zhang MD RBC (Bld) [#/Vol] 3.70 10*6/uL Low 3.95-5.11 [facility] Comment on above: Performed By: #### C P, CDP #### [address] [place] [address] Sandstone Inspector Repairer: Collette Zhang MD WBC (Bld) [#/Vol] 9.8 10*3/uL Normal 3.5-11.3 [facility] Comment on above: Performed By: #### C P, CDP #### [facility] [address] [place], [place] [id number] Sandstone Inspector Repairer: Collette Zhang MD Comp Metabolic Profon 2023 Albumin [Mass/Vol] 4.4 g/dL Normal 3.5-5.2 [facility] Comment on above: Performed By: #### C P, CDP #### [address] [place] [address] Sandstone Inspector Repairer: Collette Zhang MD Albumin/Glob Ratio 1.6 Normal 1.0-2.5 [facility] Comment on above: Performed By: #### C P, CDP #### [facility] [address] [place] [address] Sandstone Inspector Repairer: Collette Zhang MD Alkaline Phos 95 U/L Normal 35-104 [facility] Comment on above: Performed By: #### C P, CDP #### [facility] [address] [place] [address] Sandstone Inspector Repairer: Collette Zhang MD ALT [Catalytic activity/Vol] 17 U/L Normal 5-33 [facility] Comment on above: Performed By: #### C P, CDP #### [facility] [address] [place] [address] Dr[place], [place] [id number] [employer] Inspector Repairer: Collette Zhang MD Anion gap [Moles/Vol] 10 mmol/L Normal 9-17 [facility] Comment on above: Performed By: #### C P, CDP #### [facility] [address] [place], [place] [address] [employer] Inspector Repairer: Collette Zhang MD AST [Catalytic activity/Vol] 18 U/L Normal <32 [facility] Comment on above: Performed By: #### C P, CDP #### [facility] [address] [place], [place] [id number] [employer] Inspector Repairer: Collette Zhang MD Bilirubin [Mass/Vol] 0.5 mg/dL Normal 0.3-1.2 [facility] Comment on above: Performed By: #### C P, CDP #### [facility] [address] [place] [address] Sandstone Inspector Repairer: Collette Zhang MD BUN/CRE Ratio 18 Normal 9-20 [facility] Comment on above: Performed By: #### C P, CDP #### [facility] [address] [place], [place] [address] [employer] Inspector Repairer: Collette Zhang MD Calcium [Mass/Vol] 9.5 mg/dL Normal 8.6-10.4 [facility] Comment on above: Performed By: #### C P, CDP #### [facility] [address] [place] [address] [employer] Inspector Repairer: Collette Zhang MD Chloride [Moles/Vol] 97 mmol/L Low 98-107 [facility] Comment on above: Performed By: #### C P, CDP #### [facility] [address] [place], [place] [address] [employer] Inspector Repairer: Collette Zhang MD CO2 [Moles/Vol] 28 mmol/L Normal 20-31 [facility] Comment on above: Performed By: #### C P, CDP #### [address] [place], [place] [address] [employer] Inspector Repairer: Collette Zhang MD Creatinine [Mass/Vol] 0.9 mg/dL Normal 0.5-0.9 [facility] Comment on above: Performed By: #### C P, CDP #### [address] [place], [place] [address] [employer] Inspector Repairer: Collette Zhang MD GFR/1.73 sq M.predicted among non-blacks MDRD (S/P/Bld) [Vol rate/Area] 70 mL/min/{1.73_m2} Normal >60 [facility] Comment on above: Result Comment: These [...] Performed By: #### C P, CDP #### [facility] [address] [place] [id number] [employer] Inspector Repairer: Collette Zhang MD Glucose [Mass/Vol] 105 mg/dL High 70-99 [facility] Comment on above: Performed By: #### C P, CDP #### [facility] [address] [place], [place] [id number] [employer] Inspector Repairer: Collette Zhang MD Potassium [Moles/Vol] 4.8 mmol/L Normal 3.7-5.3 [facility] Comment on above: Performed By: #### C P, CDP #### [facility] [address] [place], [place] [id number] [employer] Repairer: Collette Zhang MD Protein [Mass/Vol] 7.2 g/dL Normal 6.4-8.3 [facility] Comment on above: Performed By: #### C P, CDP #### [facility] [address] [place], [place] [id number] [employer] Inspector Repairer: Collette Zhang MD Sodium [Moles/Vol] 135 mmol/L Normal 135-144 [facility] Comment on above: Performed By: #### C P, CDP #### [facility] [address] [place] [address] Dr. [place], [place] [id number] [employer] Inspector Repairer: Collette Zhang MD Urea nitrogen [Mass/Vol] 16 mg/dL Normal 8-23 [facility] Comment on above: Performed By: #### C P, CDP #### [facility] [address] [place], [place] [id number] [employer] Inspector Repairer: Collette Zhang MD Comprehensive Metabolic Pane [facility] 05-23-2024 Albumin [Mass/Vol] 4.4 g/dL 3.5 - 5.2 g/dL [facility] Albumin/Globulin [Mass ratio] 1.6 {ratio} 1.0 - 2.5 [facility] ALP [Catalytic activity/Vol] 95 U/L 35 - 104 U/L [facility] ALT [Catalytic activity/Vol] 17 U/L 5 - 33 U/L [facility] Anion gap [Moles/Vol] 10 mmol/L 9 - 17 mmol/L [facility] AST [Catalytic activity/Vol] 18 U/L NINF - 32 U/L [facility] Bilirubin [Mass/Vol] 0.5 mg/dL 0.3 - 1 .2 mg/dL [facility] Calcium [Mass/Vol] 9.5 mg/dL 8.6 - 10. 4 mg/dL [facility] Chloride [Moles/Vol] 97 mmol/L Low 98 - 10 7 mmol/L [facility] CO2 [Moles/Vol] 28 mmol/L 20 - 31 mmol/L [facility] Creatinine [Mass/Vol] 0.9 mg/dL 0.5 - 0.9 mg/dL [facility] Est, Glom Filt Rate 70 - PINF [facility] Comment on above: These results are not [...] 105 mg/dL High 70 - 99 mg/dL [facility] Interpretation and review of laboratory results Abnormal [facility] Potassium [Moles/Vol] 4.8 mmol/L 3.7 - 5.3 mmol/L [facility] Protein [Mass/Vol] 7.2 g/dL 6.4 - 8.3 g/dL [facility] Sodium [Moles/Vol] 135 mmol/L 135 - 144 mmol/L [facility] Urea nitrogen [Mass/Vol] 16 mg/dL 8 - 23 mg/dL [facility] Urea nitrogen/Creatinine [Mass ratio] 18 mg/mg 9 - 20 [facility] Microscopic Urinalysison Bacteria LM Ql (Urine sed) RARE None [facility] Epithelial cells LM.HPF (Urine sed) [#/Area] 0 TO 2 [facility] RBC LM.HPF (Urine sed) [#/Area] 0 TO 2 [facility] WBC LM.HPF (Urine sed) [#/Area] 0 TO 2 [facility] UA w/Reflex Cultureon 2023 Bilirubin, SemiQt,Ur Negative Normal NEG [facility] Comment on above: Performed By: #### U MICAO, UAX #### [facility] [address] [place], [place] [id number] [employer] Inspector Repairer: Collette Zhang MD Blood, Urine Negative Normal NEG [facility] Comment on above: Performed By: #### U MICAO, UAX #### [facility] [address] [place], [place] [id number] Sandstone Inspector Repairer: Collette Zhang MD Clarity (U) Clear Normal CLEAR [facility] Comment on above: Performed By: #### U MICAO, UAX #### [facility] [address] [place], [place] [phone] Sandstone Inspector Repairer: Collette Zhang MD Color (U) Yellow Normal YEL [facility] Comment on above: Performed By: #### U MICAO, UAX #### [facility] [address] [place], [place] [phone] [employer] Inspector Repairer: Collette Zhang MD Glucose Ql (U) Negative Normal NEG [facility] Comment on above: Performed By: #### U MICAO, UAX #### [facility] [address] [place], [place] [id number] Sand[employer] Inspector Repairer: Collette Zhang MD Ketones Ql (U) Negative Normal NEG [facility] Comment on above: Performed By: #### U MICAO, UAX #### [facility] [address] [place] [address] Sandstone Inspector Repairer: Collette Zhang MD Leukocyte esterase Test strip Ql (U) Negative Normal NEG [facility] Comment on above: Performed By: #### U MICAO, UAX #### [facility] [address] [place] [address] Dr. [place], [place] [phone] [employer] Inspector Repairer: Collette Zhang MD Nitrite,Ur Negative Normal NEG [facility] Comment on above: Performed By: #### U MICAO, UAX #### [facility] [address] [place] [address] Dr. [place], [place] [phone] Sand[employer] Inspector Repairer: Collette Zhang MD PH,Ur 6.0 Normal 5.0-9.0 [facility] Comment on above: Performed By: #### U MICAO, UAX #### [address] [place], [place] [id number] Sandstone Inspector Repairer: Collette Zhang MD Protein Ql (U) Negative Normal NEG [facility] Comment on above: Performed By: #### U MICAO, UAX #### [address] [place], [place] [id number] Sandstone Inspector Repairer: Collette Zhang MD Spec. Horner,Ur 1.010 Normal 1.010-1.020 [facility] Comment on above: Performed By: #### U MICAO, UAX #### [address] [place], [place] [phone] Sandstone Inspector Repairer: Collette Zhang MD Urobilinogen,Ur Normal Normal 0.0-1.0 [facility] Comment on above: Performed By: #### U MICAO, UAX #### [address] [place] [address] Sandstone Inspector Repairer: Collette Zhang MD Urinalysis with Reflex to Cu ltureon 05-23-2024 Bilirubin Ql (U) Negative NEGATIVE [facility] Clarity (U) Clear Clear [facility] Color (U) Yellow Yellow [facility] Glucose Test strip (U) [Mass/Vol] Negative NEGATIVE mg/dL [facility] Hemoglobin Auto test strip Ql (U) Negative NEGATIVE [facility] Ketones (U) [Mass/Vol] Negative NEGATIVE mg/dL [facility] Leukocyte esterase Test strip Ql (U) Negative NEGATIVE [facility] Nitrite Ql (U) Negative NEGATIVE [facility] pH (U) 6.0 [pH] 5.0 - 9.0 [facility] Protein (U) [Mass/Vol] Negative NEGATIVE mg/dL [facility] Specific gravity (U) [Rel density] 1.010 1.010 - 1.020 [facility] Urobilinogen Qn (U) Normal 0.0 - 1. 0 EU/dL [facility] Urinalysis,Microon 4 Bacteria RARE Normal NONE [facility] Comment on above: Performed By: #### U FELICITAS UAX #### [facility] [address] [place] [address] Sandstone Inspector Repairer: Collette Zhang MD Epithelial cells LM Ql (Urine sed) 0 TO 2 Normal 0-25 [facility] Comment on above: Performed By: #### U FELICITAS UAX #### [facility] [address] [place] [address] [place] [address] Sandstone Inspector Repairer: Collette Zhang MD Urine RBC's 0 TO 2 Normal 0-2 [facility] Comment on above: Performed By: #### U KENDALLO UAX #### [facility] [address] [place] [address] Sandstone Inspector Repairer: Collette Zhang MD Urine WBC's 0 TO 2 Normal 0-5 [facility] Comment on above: Performed By: #### U KENDALLO UAX #### [facility] [address] [place] [address] Sandstone Inspector Repairer: Collette Zhang MD Cytology Reporton 05-14-2024 Cytology report Cyto stain.thin prep Doc (Cvx/Vag) (NOTE) Path Number: [id number] DIAGNOSIS Imaged ThinPrep Pap - Cervical (1 monolayer slide): Specimen Adequacy: Satisfactory for evaluation. -Endocervical/transfo rmation zone component is absent. Descriptive Diagnosis: Negative for intraepithelial lesion or malignancy. Comments: Specimen was screened at [facility], [address] [place] [address] [employer] Screener: PT Electronically Signed Out Barbi Villalba pt/05/20/2024 Source of Specimen: A: Imaged ThinPrep Pap - Cervical (1 monolayer slide) HPV Reflex?.............. 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, [address] [place] [address], [place] [address] This Pap Test has been evaluated with [...] GYNECOLOGIC CYTOLOGY REPORT Patient Name: MARYAM SOLOMON. [facility] Rec: [id number] [facility] ANATOMIC PATHOLOGY [address] [place] [address]. [place], [place] [address] [facility] Ambulatory Visit Summaryon 1 12-11-2022 Ambulatory [...] choosing us for your care. [facility] General Surgery Office/Clini c Noteon 10-10-2023 [...] virus vaccine, inactivated 09/21/2022 Recorded SARS-CoV-2 (COVID-19) mRNAMUL.[id number] 09/21/2022 Recorded SARSCoV2 mRNA(tiutqqkin-zpsp-k ucros) vac 03/23/2022 Recorded SARS-CoV-2 (COVID-19) mRNA BNT-162b2 vax 08/09/2021 Recorded 2023-08-31: [id number] SARS-CoV-2 (COVID-19) mRNA BNT-162b2 vax 01/12/2021 Recorded SARS-CoV-2 (COVID-19) mRNA BNT-162b2 vax 12/21/2020 Recorded Normal [facility] Comment on above: Result Comment: Elec tronically Signed By: YOHANA NARAYAN, Eron Starks\Date and Time Signed: 10/10/23 14:58 EST Reminderson 10-10-2023 Reminders - From: Brigette Arce LPN To: GSN - Clinical; Sent: 10/10/2023 14:44:13 EST Show up: 08/28/2033 07:00:00 EST Subject: colonoscopy recall Due Date/Time: 09/27/2033 07:00:00 EST Reminder/Recall Patient due for screening colonoscopy 09/27/2033. Normal [facility] Pathology Noteon 10-04-2023 Pathology Note [id number]# 1.00TIFF Normal [facility] Outside Colonoscopyon 2022 Outside Colonoscopy [id number]#1 .00TIFF [facility] Consent for Procedure/Surger yon 09-06-2023 Consent for Procedure/Surgery [id number]# 1.00TIFF [facility] Facesheeton 09-06-2023 Facesheet [id number]# 1.00TIFF [facility] Ambulatory Visit Summaryon 1 11-05-2022 Ambulatory [...] you for choosing us for your care. [facility] Lab Reportson 08-31-2023 Lab Reports [id number]#1 .00TIFF [facility] Consultation Noteon 08-28-20 23 Consultation Note [id number]#1 .00TIFF Normal [facility] Physician Referralon 023 Physician Referral [id number]#1 .00CD:[address] [facility] MG MAMM SCREEN 3D SERINA CADon 09-21-2022 MG MAMM SCREEN 3D SERINA CAD Patient: MARYAM SOLOMON Exam Date: 09/21/2022 : 1955 Gender:F Ordering : DR ELIZABETH FLORES Admission #: [id number] Family : Order #: [id number] CLICK HERE TO VIEW EXAM RADIOLOGY REPORT [...] lung cancer at age 62. LOCATION: [facility] BREAST COMPOSITION: Almost entirely fatty. [...] PALPABLE LUMP SHOULD BE BIOPSIED. Dictated by: Prosper Reynoso M.D. on 09/21/2022 at 15:40 Approved by: Prosper Reynoso M.D. on 09/21/2022 at 15:46 Normal [facility] CBC AUTO DIFFon 05-02-2022 BASO # 0.1 103/ul Normal 0.0-0.1 [facility] Comment on above: Performed By: #### C BC #### [facility] [address] [place] [address] Dr. Sona Cortez Basophils/100 WBC (Bld) 0.7 % Normal 0.2-2.0 [facility] Comment on above: Performed By: #### C BC #### [facility] [address] [place] [address] Dr. Sona Cortez EO # 0.2 103/ul Normal 0.0-0.7 [facility] Comment on above: Performed By: #### C BC #### [facility] [address] [place] [address] Dr. Sona Cortez Eosinophils/100 WBC (Bld) 2.1 % Normal 0.9-7.0 [facility] Comment on above: Performed By: #### C BC #### [facility] [address] [place] [address] Dr. Sona Cortez Erythrocyte distribution width (RBC) [Ratio] 12.1 % Normal 11.0-15.0 [facility] Comment on above: Performed By: #### C BC #### [facility] [address] [place] [address] Dr. Sona Cortez Hematocrit (Bld) [Volume fraction] 37.6 % Normal 36.0-48.0 [facility] Comment on above: Performed By: #### C BC #### [facility] [address] [place] [address] Dr. Sona Cortez Hemoglobin (Bld) [Mass/Vol] 12.5 g/dL Normal 12.0-16.0 [facility] Comment on above: Performed By: #### C BC #### [facility] [address] [place] [address] Dr. Sona Cortez IG # 0.01 10e3/ul Normal 0.00-0.03 [facility] Comment on above: Performed By: #### C BC #### [facility] [address] [place] [address] Dr. Sona Cortez IG % 0.1 % Normal 0.0-0.5 [facility] Comment on above: Performed By: #### C BC #### [facility] [address] [address] [address] Sona Cortez LYMPH # 2.0 103/ul Normal 1.2-3.8 [facility] Comment on above: Performed By: #### C BC #### [facility] [address] [address] [address] Sona Cortez Lymphocytes/100 WBC (Bld) 28.3 % Normal 20.5-60.0 [facility] Comment on above: Performed By: #### C BC #### [facility] [address] [place] [address] Dr. Sona Cortez MANUAL DIFF REQ NO Normal [facility] Comment on above: Performed By: #### C BC #### [facility] [address] [place] [address] Dr. Sona Cortez MCH (RBC) [Entitic mass] 31.9 pg Normal 26.7-34.0 [facility] Comment on above: Performed By: #### C BC #### [facility] [address] [place] [address] Dr. Sona Cortez MCHC (RBC) [Mass/Vol] 33.2 g/dL Normal 29.9-35.2 [facility] Comment on above: Performed By: #### C BC #### [facility] [address] [place] [address] Dr. Sona Cortez MCV (RBC) [Entitic vol] 95.9 fL Normal 81.0-99.0 [facility] Comment on above: Performed By: #### C BC #### [facility] [address] [place] [address] Dr. Sona Cortez MONO # 0.4 103/ul Normal 0.3-0.8 [facility] Comment on above: Performed By: #### C BC #### [facility] [address] [place] [address] Dr. Sona Cortez Monocytes/100 WBC (Bld) 5.7 % Normal 1.7-12.0 [facility] Comment on above: Performed By: #### C BC #### [facility] [address] [address] [address] Sona Cortez NEUT # 4.4 103/ul Normal 1.4-6.5 [facility] Comment on above: Performed By: #### C BC #### [facility] [address] [address] [address] Sona Cortez Neutrophils/100 WBC (Bld) 63.1 % Normal 43.0-75.0 [facility] Comment on above: Performed By: #### C BC #### [facility] [address] [address] [address] Sona Cortez Platelet mean volume (Bld) [Entitic vol] 8.5 fL Critically low 9.5-13.5 [facility] Comment on above: Performed By: #### C BC #### [facility] [address] [place] [address] Dr. Sona Cortez PLT 313 103/ul Normal 150-450 [facility] Comment on above: Performed By: #### C BC #### [facility] [address] [address] [address] Sona Cortez RBC 3.92 106/ul Critically low 4.20-5.40 [facility] Comment on above: Performed By: #### C BC #### [facility] [address] [address] [address] Sona Cortez WBC 7.0 103/ul Normal 4.0-11.0 [facility] Comment on above: Performed By: #### C BC #### [facility] [address] [place] [address] Dr. Sona Cortez FREE THYROXINE INDEX T7on FTI 2.31 Normal 1.30-4.50 [facility] Comment on above: Performed By: #### U ANNABELLE, T7, TSH, CMP, LIPID #### [facility] [address] [address] [address] Sona Cortez T3U 33.0 % Normal 30.0-39.0 [facility] Comment on above: Performed By: #### U ANNABELLE, T7, TSH, CMP, LIPID #### [facility] [address] [address] [address] Sona Cortez T4 [Mass/Vol] 7.00 ug/dL Normal 4.80-13.90 [facility] Comment on above: Performed By: #### U ANNABELLE, T7, TSH, CMP, LIPID #### [facility] [address] [address] [address] Sona Cortez GLYCOHEMOGLOBIN A1Con 2021 ADA RECOMMENDATION SEE BELOW Normal [facility] Comment on above: Result Comment: ADA RECOMMENDED LIMIT 4.0 - 6.0 ADA THERAPEUTIC TARGET < 7.0 ACTION SUGGESTED > 7.0 Performed By: #### A 1C #### [facility] [address] [address] [address] Sona Cortez Glucose [Mass/Vol] 131 mg/dL Normal [facility] Comment on above: Performed By: #### A 1C #### [facility] [address] [address] [address] Sona Cortez HbA1c (Bld) [Mass fraction] 6.2 % Normal 4.5-6.2 [facility] Comment on above: Performed By: #### A 1C #### [facility] [address] [address] [address] Sona Cortez IRONon 05-02-2022 Iron [Mass/Vol] 98.0 ug/dL Normal 50.0-170.0 [facility] Comment on above: Performed By: #### V ITAD, IRON #### [facility] [address] [address] [address] Sona Cortez LIPID PROFILEon 05-02-2022 CHOL-HDL RATIO NORM SEE BELOW Normal [facility] Comment on above: Result Comment: 3.3 - 4.4 LOW RISK 4.4 - 7.1 AVERAGE RISK 7.1 - 11.0 MODERATE RISK >11.0 HIGH RISK Performed By: #### V ITAD, IRON #### [facility] [address] [place] [address] Dr. Sona Cortez Cholesterol [Mass/Vol] 187 mg/dL Normal <=200 [facility] Comment on above: Performed By: #### V ITAD, IRON #### [facility] [address] [address] [address] Sona Cortez Cholesterol in HDL [Mass/Vol] 59 mg/dL Normal 40-60 [facility] Comment on above: Performed By: #### V ITAD, IRON #### [facility] [address] [address] [address] Sona Cortez Cholesterol in LDL [Mass/Vol] 94.8 mg/dL Normal [facility] Comment on above: Performed By: #### V ITAD, IRON #### [facility] [address] [address] [address] Sona Cortez Cholesterol.total/Cho lesterol in HDL [Mass ratio] 3.2 {ratio} Normal [facility] Comment on above: Performed By: #### V ITAD, IRON #### [facility] [address] [address] [address] Sona Cortez HDL NORMAL > or = 60 mg/dl - LO W CARDIOVASCULAR RISK <40 mg/dl - HIGH CARDIOVASCULAR RISK Normal [facility] Comment on above: Performed By: #### V ITAD, IRON #### [facility] [address] [address] [address] Sona Cortez LDL CALC NORMAL SEE BELOW Normal [facility] Comment on above: Result Comment: <100 mg/dl OPTIMAL 100 - 129 mg/dl NEAR OR ABOVE OPTIMAL 130 - 159 mg/dl BORDERLINE HIGH 160 - 189 mg/dl HIGH >190 mg/dl VERY HIGH Performed By: #### V ITAD, IRON #### [facility] [address] [address] [address] Sona Cortez Triglyceride [Mass/Vol] 166 mg/dL Critically high <=150 [facility] Comment on above: Performed By: #### V ITAD, IRON #### [facility] [address] [address] [address] Sona Cortez VLDL CALC 33.2 mg/dL Normal [facility] Comment on above: Performed By: #### V ITAD, IRON #### [facility] [address] [address] [address] Sona Cortez PROF 14(COMP METB)on 022 Albumin [Mass/Vol] 4.1 g/dL Normal 3.4-5.0 [facility] Comment on above: Performed By: #### U ANNABELLE, T7, TSH, CMP, LIPID #### [facility] [address] [address] [address] Sona Cortez Albumin/Globulin [Mass ratio] 1.2 {ratio} Normal [facility] Comment on above: Performed By: #### U ANNABELLE, T7, TSH, CMP, LIPID #### [facility] [address] [address] [address] Sona Cortez ALP [Catalytic activity/Vol] 87 U/L Normal 46-116 [facility] Comment on above: Performed By: #### U ANNABELLE, T7, TSH, CMP, LIPID #### [facility] [address] [address] [address] Sona Cortez ALT [Catalytic activity/Vol] 31 U/L Normal 14-59 [facility] Comment on above: Performed By: #### U ANNABELLE, T7, TSH, CMP, LIPID #### [facility] [address] [address] [address] Sona Cortez Anion gap [Moles/Vol] 14.8 mmol/L Normal [facility] Comment on above: Performed By: #### U ANNABELLE, T7, TSH, CMP, LIPID #### [facility] [address] [address] [address] Sona Cortez AST [Catalytic activity/Vol] 17 U/L Normal 15-37 [facility] Comment on above: Performed By: #### U ANNABELLE, T7, TSH, CMP, LIPID #### [facility] [address] [address] [address] Sona Cortez Bilirubin [Mass/Vol] 0.4 mg/dL Normal 0.2-1.0 [facility] Comment on above: Performed By: #### U ANNABELLE, T7, TSH, CMP, LIPID #### [facility] [address] [address] [address] Sona Cortez Calcium [Mass/Vol] 9.1 mg/dL Normal 8.5-10.1 [facility] Comment on above: Performed By: #### U ANNABELLE, T7, TSH, CMP, LIPID #### [facility] [address] [address] [address] Sona Cortez Chloride [Moles/Vol] 100 mmol/L Normal 98-107 [facility] Comment on above: Performed By: #### U ANNABELLE, T7, TSH, CMP, LIPID #### [facility] [address] [place] [address] Dr. Sona Cortez CO2 [Moles/Vol] 27.4 mmol/L Normal 21.0-32.0 [facility] Comment on above: Performed By: #### U ANNABELLE, T7, TSH, CMP, LIPID #### [facility] [address] [place] [address] Dr. Sona Cortez Creatinine [Mass/Vol] 1.05 mg/dL Critically high 0.55-1.02 [facility] Comment on above: Performed By: #### U ANNABELLE, T7, TSH, CMP, LIPID #### [facility] [address] [place] [address] Dr. Sona Cortez EGFR-AF TURKS AND CA[place] ISLANDER >60 Normal >=60 [facility] Comment on above: Performed By: #### U ANNABELLE, T7, TSH, CMP, LIPID #### [facility] [address] [place] [address] Dr. Sona Cortez EGFR-NON AF TURKS AND [place] ISLANDER 52 mL/min/1.73m2 Critically low >=60 [facility] Comment on above: Performed By: #### U ANNABELLE, T7, TSH, CMP, LIPID #### [facility] [address] [place] [address] Dr. Sona Cortez Globulin (S) [Mass/Vol] 3.5 g/dL Normal [facility] Comment on above: Performed By: #### U ANNABELLE, T7, TSH, CMP, LIPID #### [facility] [address] [place] [address] Dr. Sona Cortez Glucose [Mass/Vol] 149 mg/dL Critically high 74-106 [facility] Comment on above: Performed By: #### U ANNABELLE, T7, TSH, CMP, LIPID #### [facility] [address] [address] [address] Sona Cortez Potassium [Moles/Vol] 4.2 mmol/L Normal 3.5-5.1 [facility] Comment on above: Performed By: #### U ANNABELLE, T7, TSH, CMP, LIPID #### [facility] [address] [place] [address] Dr. Sona Cortez Protein [Mass/Vol] 7.6 g/dL Normal 6.4-8.2 The [facility] Comment on above: Performed By: #### U ANNABELLE, T7, TSH, CMP, LIPID #### [facility] [address] [place] [address] Dr. Sona Cortez Sodium [Moles/Vol] 138 mmol/L Normal 136-145 The [facility] Comment on above: Performed By: #### U ANNABELLE, T7, TSH, CMP, LIPID #### [facility] [address] [place] [address] Dr. Sona Cortez Urea nitrogen [Mass/Vol] 17.0 mg/dL Normal 7.0-18.0 [facility] Comment on above: Performed By: #### U ANNABELLE, T7, TSH, CMP, LIPID #### [facility] [address] [place] [address] Dr. Sona Cortez Urea nitrogen/Creatinine [Mass ratio] 16.2 mg/mg Normal [facility] Comment on above: Performed By: #### U ANNABELLE, T7, TSH, CMP, LIPID #### [facility] [address] [place] [address] Dr. Sona Cortez TSHon 05-02-2022 TSH 2.358 uIU/mL Normal 0.358-3.740 The [facility] Comment on above: Performed By: #### U ANNABELLE, T7, TSH, CMP, LIPID #### [facility] [address] [place] [address] Dr. Sona Cortez URIC ACID SERUMon 05-02-2022 Urate [Mass/Vol] 5.2 mg/dL Normal 2.6-6.0 The [facility] Comment on above: Performed By: #### U ANNABELLE, T7, TSH, CMP, LIPID #### [facility] [address] [place], [place] [address] Dr. Sona Cortez VITAMIN D 25 OHon 05-02-2022 VIT D 25-OH 15.6 ng/mL Normal [facility] Comment on above: Performed By: #### V ITAD, IRON #### [facility] [address] [address] [address] Sona Cortez VIT D RANGES SEE BELOW Normal [facility] Comment on above: Result Comment: <20 ng/mL Vit D deficient 20 - <30 ng/mL Vit D insufficient 30 - 100 ng/mL Vit D sufficient >100 ng/mL Potential Toxicity Performed By: #### V ITAD, IRON #### [facility] [address] [address] [address] Sona Cortez Operative Reporton 9 Operative Report MR#: [id number] [facility] Pt. Name: Maryam Solomon Room #: [id number] Discharge 08/03/2019 Date: Birthdate: 1955 OPERATIVE REPORT DATE OF SURGERY: 08/02/2019 SURGEON: Krishna Sofia MD CRIMPING MACHINE OPERATOR: Tirso Gonzales MD. PREOPERATIVE DIAGNOSIS: Right shoulder [...] the humeral head, and we used a environmental restoration planner to make sure the stem was [...] Sofia MD Date Trans: 08/05/2019 01:24 A/macho [id number] cc: Lala Watson M.D. [address], [facility] [address] Normal [facility] BASIC METABOLIC PANELon 07-23 Calcium [Mass/Vol] 8.9 mg/dL Normal 8.6-10.[address] [facility] Comment on above: Order Comment: No: D o not add to previous draw Performed By: #### 5 [id number] #### [facility] [address] [place] [address], [facility] Chloride [Moles/Vol] 104 mmol/L Normal 98-[address] [facility] Comment on above: Order Comment: No: D o not add to previous draw Performed By: #### 5 6101 #### [facility] [address] [place] [address], [facility] CO2 [Moles/Vol] 30 mmol/L Normal 21-31 The [facility] [place] Comment on above: Order Comment: No: D o not add to previous draw Performed By: #### 5 6101 #### [facility] [address] [place] [address], [place] Creatinine [Mass/Vol] 0.94 mg/dL Normal 0.60-1.[address] [facility] Comment on above: Order Comment: No: D o not add to previous draw Performed By: #### 5 6101 #### [facility] [address] [place] [address], [place] GFR/1.73 sq M predicted among blacks MDRD (S/P/Bld) [Vol rate/Area] mL/min/{1.73_m2} Normal >[address] [facility] Comment on above: Order Comment: No: D o not add to previous draw Performed By: #### 5 6101 #### [facility] [address] [place] [address], [place] GFR/1.73 sq M predicted among non-blacks MDRD (S/P/Bld) [Vol rate/Area] mL/min/{1.73_m2} Normal >[address] [facility] Comment on above: Order Comment: No: D o not add to previous draw Performed By: #### 5 [id number] #### [facility] [address] [place] [address], [place] Glucose [Mass/Vol] 136 mg/dL High 70-100 The [facility] Comment on above: Order Comment: No: D o not add to previous draw Performed By: #### 5 6101 #### [facility] [address] [place] [address], [place] Potassium [Moles/Vol] 4.4 mmol/L Normal 3.5-5.[address] [facility] Comment on above: Order Comment: No: D o not add to previous draw Performed By: #### 5 6101 #### [facility] [address] [place] [address], [place] Sodium [Moles/Vol] 141 mmol/L Normal 136-145 [facility] Comment on above: Order Comment: No: D o not add to previous draw Performed By: #### 5 [id number] #### [facility] [address] [facility]. [address] Urea nitrogen [Mass/Vol] 12 mg/dL Normal 7-[address] [facility] Comment on above: Order Comment: No: D o not add to previous draw Performed By: #### 5 6101 #### [facility] [address] [facility] [place] [address], [facility] CBC W/DIFFon 08-03-2019 ABS BASOPHILS 0.0 10*3/uL Normal 0.0-0.2 The [facility] Comment on above: Order Comment: No: D o not add to previous draw Performed By: #### 5 [id number] #### [facility] [address] ABS IMM GRANS 0.1 10*3/uL Normal 0.0-0.2 The [facility] Comment on above: Order Comment: No: D o not add to previous draw Performed By: #### 5 6101 #### [facility] [address] [place] [address], [facility] ABS NEUTROPHILS 8.0 10*3/uL High 1.6-7.6 The [facility] Comment on above: Order Comment: No: D o not add to previous draw Performed By: #### 5 [id number] #### [facility] [address] [facility] [place] [address], [facility] Basophils/100 WBC (Bld) 0.1 % Normal 0.0-1.[address] [facility] Comment on above: Order Comment: No: D o not add to previous draw Performed By: #### 5 6101 #### [facility] [address] [place] [address], [facility] Eosinophils (Bld) [#/Vol] 0.0 10*3/uL Normal 0.0-0.[address] [facility] Comment on above: Order Comment: No: D o not add to previous draw Performed By: #### 5 6101 #### [facility] [address] [place] [address], [facility] Eosinophils/100 WBC (Bld) 0.0 % Normal 0.0-6.[address] [facility] Comment on above: Order Comment: No: D o not add to previous draw Performed By: #### 5 6101 #### [facility] [address] Erythrocyte distribution width (RBC) [Ratio] 12.1 % Normal 11.5-15.[address] [facility] Comment on above: Order Comment: No: D o not add to previous draw Performed By: #### 5 6101 #### [facility] [address] Hematocrit (Bld) [Volume fraction] 29.4 % Low 36.0-45.[address] [facility] Comment on above: Order Comment: No: D o not add to previous draw Performed By: #### 5 6101 #### [facility] [address] [facility] [place] [address], [facility] Hemoglobin (Bld) [Mass/Vol] 9.5 g/dL Low 12.0-15.[address] [facility] Comment on above: Order Comment: No: D o not add to previous draw Performed By: #### 5 6101 #### [facility] [address] [facility] [place] [address], [facility] IMMATURE GRANS 0.5 % Normal 0.0-1.0 The [facility] Comment on above: Order Comment: No: D o not add to previous draw Performed By: #### 5 6101 #### [facility] [address] [place] [address], [facility] Lymphocytes (Bld) [#/Vol] 1.3 10*3/uL Normal 1.2-4.[address] [facility] Comment on above: Order Comment: No: D o not add to previous draw Performed By: #### 5 [id number] #### [facility] [address] [place] [address], [facility] Lymphocytes/100 WBC (Bld) 13.1 % Low 20.0-45.[address] [facility] Comment on above: Order Comment: No: D o not add to previous draw Performed By: #### 5 6101 #### [facility] [address] [place] [address], [facility] MCH (RBC) [Entitic mass] 32.0 pg Normal 27.0-33.[address] [facility] Comment on above: Order Comment: No: D o not add to previous draw Performed By: #### 5 [id number] #### [facility] [address] [place] [address], [facility] MCHC (RBC) [Mass/Vol] 32.3 g/dL Normal 32.0-35.[address] [facility] Comment on above: Order Comment: No: D o not add to previous draw Performed By: #### 5 6101 #### [facility] [address] [place] [address], [facility] MCV (RBC) [Entitic vol] 99.0 fL High 82.0-98.[address] [facility] Comment on above: Order Comment: No: D o not add to previous draw Performed By: #### 5 6101 #### [facility] [address] [facility] [address], [facility] Monocytes (Bld) [#/Vol] 0.7 10*3/uL Normal 0.1-1.[address] [facility] Comment on above: Order Comment: No: D o not add to previous draw Performed By: #### 5 6101 #### [facility] [address] [place] [id number], [facility] MONOS 7.2 % Normal 5.0-12.[address] [facility] Comment on above: Order Comment: No: D o not add to previous draw Performed By: #### 5 6101 #### [facility] [address] [place] [id number], [facility] Neutrophils/100 WBC (Bld) 79.1 % High 40.0-72.[address] [facility] Comment on above: Order Comment: No: D o not add to previous draw Performed By: #### 5 6101 #### [facility] [address] [place] [address], [facility] Nucleated RBC/100 WBC (Bld) [Ratio] 0 % Normal 0-[address] [facility] Comment on above: Order Comment: No: D o not add to previous draw Performed By: #### 5 6101 #### [facility] [address] [place] [id number], [place] PLAT CNT 264 10*3/uL Normal 150-400 The [facility] Comment on above: Order Comment: No: D o not add to previous draw Performed By: #### 5 6101 #### [facility] [address] [place] [id number], [facility] RBC (Bld) [#/Vol] 2.97 10*6/uL Low 3.80-5.00 [facility] Comment on above: Order Comment: No: D o not add to previous draw Performed By: #### 5 6101 #### [facility] [address] [place] [id number], [place] WBC (Bld) [#/Vol] 10.07 10*3/uL Normal 4.00-10.60 [facility] Comment on above: Order Comment: No: D o not add to previous draw Performed By: #### 5 6101 #### [facility] [address] [place] [id number], [facility] POC GLUCOSE LABon 08-02-2019 Glucose [Mass/Vol] 95 mg/dL Normal 70-100 The [facility] Comment on above: Performed By: #### 5 6101 #### [address] [address], [facility] PORTABLE SHOULDER RIGHT 2 VW Son 08-02-2019 PORTABLE SHOULDER RIGHT [address] [facility] Department of Radiology [address] [place] [phone] Patient Name: MARYAM SOLOMON : 1955 Sex: F Age: Race: White Pt. Location: [place] [address] Patient Status: I Ordered Date: 08/02/2019 5:55:00 PM Completed Date: 08/02/2019 06:34 PM Requesting Provider: TIRSO GONZALES Attending Provider: KRISHNA SOFIA Report Copy To: Signs & Symptoms: Pain ( specify Location) History: See Comments Comments: Hardware Evaluation Exam: PORTABLE SHOULDER RIGHT 2 S PORTABLE SHOULDER RIGHT 2 S 08/02/2019 6:34 [...] Amaya on 08/02/2019 6:54 PM EDT. I, Dustin Rowe, have reviewed the images and report and concur with these findings. Electronically signed by:Dustin Rowe. Transcribed by: [email or web address], User Resident: VILMA AMAYA Electronically Signed by: DUSTIN ROWE @ 08/02/2019 07:31 PM I personally read this/these film(s) with this resident Normal The [facility] Comment on above: Order Comment: No: D o not add to previous draw CT 3D UPPER EXTREMITY WO CON TRAST RIGHTon 07-10-2019 CT 3D UPPER EXTREMITY WO CONTRAST RIGHT [facility] Department of Radiology [address] [place] [phone] Patient Name: MARYAM SOLOMON : 1955 Sex: F Age: Race: White Pt. Location: Patient Status: D Ordered Date: 07/02/2019 3:40:00 PM Completed Date: 07/10/2019 04:05 PM Requesting Provider: KRISHNA SOFIA Attending Provider: KRISHNA SOFIA Report Copy To: LALA WATSON Signs & Symptoms: M25.811 Other specified joint disorders, right shoulder I10 History: Marie, no pc per todd @ [facility] cpt code 52887 *mla Comments: right shoulder for surgical planning Exam: CT 3D UPPER EXTREMITY WO CONTRAST RIGHT CT 3D UPPER EXTREMITY WO CONTRAST RIGHT [...] ossification from prior cuff injury. Electronically signed by:Chandni Odonnell. Transcribed by: [email or web address], User Resident: Electronically Signed by: CHANDNI ODONNELL @ 07/10/2019 04:22 PM Normal The [facility] Comment on above: Order Comment: No: D o not add to previous draw SHOULDER RIGHTon 07-02-2019 SHOULDER RIGHT [facility] Department of Radiology [address] [place] [phone] Patient Name: MARYAM SOLOMON : 1955 Sex: F Age: Race: White Pt. Location: 84 Patient Status: O Ordered Date: 07/02/2019 3:00:00 PM Completed Date: 07/02/2019 03:10 PM Requesting Provider: KRISHNA SOFIA Attending Provider: KRISHNA SOFIA Report Copy To: Signs & Symptoms: M25.519 Pain in unspecified shoulder I10 History: [place] Comments: , , , Ordering Provider - KRISHNA SOFIA MD , Exam: SHOULDER RIGHT SHOULDER RIGHT 07/02/2019 3:10 PM EDT SIGNS [...] as well as shoulder instability Electronically signed by:Chandni Odonnell. Transcribed by: [email or web address], User Resident: Electronically Signed by: CHANDNI ODONNELL @ 07/02/2019 03:41 PM Normal The [facility] Comment on above: Order Comment: No: D o not add to previous draw Operative Reporton 9 Operative Report MR#: [id number] [facility] Pt. Name: Maryam Solomon Room #: [...] Sofia MD Date Trans: 11/29/2018 06:23 A/macho [id number] cc: Lala Watson M.D. [address] [facility] [phone] Normal [address] [facility] POC GLUCOSE LABon 11-27-2018 Glucose [Mass/Vol] 90 mg/dL Normal 70-100 The [facility] Comment on above: Performed By: #### 0 0071 #### [facility] [address] *MRSA/MSSA DNA NASALon 11-06 *MRSA/MSSA DNA NASAL Clinical Report: (D ) Specimen: NASAL SWAB Collected: 11/06/2018 13:53 Status: Final Last Updated: 11/06/2018 18:38 MSSA DNA (Final) Negative MRSA DNA (Final) Negative Normal The [facility] Comment on above: Performed By: #### 0 0071 #### [facility] [address] [place] [address], [facility] APTTon 11-06-2018 aPTT Coag (Bld) [Time] 33.9 s Normal 25.0-35.[address] [facility] Comment on above: Result Comment: ALL [...] PURPOSE. Performed By: #### 0 0071 #### [facility] [address] [place] [address], [facility] BASIC METABOLIC PANELon 10-23 Calcium [Mass/Vol] 9.4 mg/dL Normal 8.6-10.[address] [facility] Comment on above: Performed By: #### 0 0071 #### [facility] [address] [place] [address], [facility] Chloride [Moles/Vol] 102 mmol/L Normal 98-[address] [facility] Comment on above: Performed By: #### 0 0071 #### [facility] [address] [place] [address], [facility] CO2 [Moles/Vol] 27 mmol/L Normal 21-31 [facility] Comment on above: Performed By: #### 0 0071 #### [facility] [address] [place] [address], [facility] Creatinine [Mass/Vol] 0.86 mg/dL Normal 0.60-1.[address] [facility] Comment on above: Performed By: #### 0 0071 #### [facility] [address] [place] [address], [facility] GFR/1.73 sq M predicted among blacks MDRD (S/P/Bld) [Vol rate/Area] mL/min/{1.73_m2} Normal >[address] [facility] Comment on above: Performed By: #### 0 0071 #### [facility] [address] GFR/1.73 sq M predicted among non-blacks MDRD (S/P/Bld) [Vol rate/Area] mL/min/{1.73_m2} Normal >[address] [facility] Comment on above: Performed By: #### 0 0071 #### [facility] [address] [place] [address], [facility] Glucose [Mass/Vol] 91 mg/dL Normal 70-100 [facility] Comment on above: Performed By: #### 0 0071 #### [facility] [address] Potassium [Moles/Vol] 4.1 mmol/L Normal 3.5-5.[address] [facility] Comment on above: Performed By: #### 0 0071 #### [facility] [address] Sodium [Moles/Vol] 134 mmol/L Low 136-145 [facility] Comment on above: Performed By: #### 0 0071 #### [facility] [address] Urea nitrogen [Mass/Vol] 17 mg/dL Normal 7-[address] [facility] Comment on above: Performed By: #### 0 0071 #### [facility] [address] [place] [address], [facility] CBC W/DIFFon 11-06-2018 ABS BASOPHILS 0.1 10*3/uL Normal 0.0-0.2 The [facility] Comment on above: Performed By: #### 0 0071 #### [facility] [address] [place] [address], [facility] ABS IMM GRANS 0.0 10*3/uL Normal 0.0-0.2 The [facility] Comment on above: Performed By: #### 0 0071 #### [facility] [address] [place] [address], [facility] ABS NEUTROPHILS 4.6 10*3/uL Normal 1.6-7.6 The [facility] Comment on above: Performed By: #### 0 0071 #### [facility] [address] [place] [address], [facility] Basophils/100 WBC (Bld) 0.7 % Normal 0.0-1.[address] [facility] Comment on above: Performed By: #### 0 0071 #### [facility] [address] [facility] [place] [address], [facility] Eosinophils (Bld) [#/Vol] 0.1 10*3/uL Normal 0.0-0.[address] [facility] Comment on above: Performed By: #### 0 0071 #### [facility] [address] [facility] [place] [address], [facility] Eosinophils/100 WBC (Bld) 1.8 % Normal 0.0-6.[address] [facility] Comment on above: Performed By: #### 0 0071 #### [facility] [address] [place] [address], [facility] Erythrocyte distribution width (RBC) [Ratio] 11.9 % Normal 11.5-15.[address] [facility] Comment on above: Performed By: #### 0 0071 #### [facility] [address] [facility] [address], [facility] Hematocrit (Bld) [Volume fraction] 38.6 % Normal 36.0-45.[address] [facility] Comment on above: Performed By: #### 0 [id number] #### [facility] [address] [facility] [place] [address], [facility] Hemoglobin (Bld) [Mass/Vol] 12.6 g/dL Normal 12.0-15.[address] [facility] Comment on above: Performed By: #### 0 0071 #### [facility] [address] IMMATURE GRANS 0.1 % Normal 0.0-1.0 The [facility] Comment on above: Performed By: #### 0 0071 #### [facility] [address] [place] [address], [facility] Lymphocytes (Bld) [#/Vol] 1.9 10*3/uL Normal 1.2-4.[address] [facility] Comment on above: Performed By: #### 0 0071 #### [facility] [address] Lymphocytes/100 WBC (Bld) 26.3 % Normal 20.0-45.[address] [facility] Comment on above: Performed By: #### 0 0071 #### [facility] [address] MCH (RBC) [Entitic mass] 30.8 pg Normal 27.0-33.[address] [facility] Comment on above: Performed By: #### 0 0071 #### [facility] [address] MCHC (RBC) [Mass/Vol] 32.6 g/dL Normal 32.0-35.[address] [facility] Comment on above: Performed By: #### 0 [id number] #### [facility] [address] [place] [address], [facility] MCV (RBC) [Entitic vol] 94.4 fL Normal 82.0-98.[address] [facility] Comment on above: Performed By: #### 0 [id number] #### [facility] [address] [place] [address], [facility] Monocytes (Bld) [#/Vol] 0.4 10*3/uL Normal 0.1-1.[address] [facility] Comment on above: Performed By: #### 0 [id number] #### [facility] [address] [place] [address], [facility] MONOS 5.5 % Normal 5.0-12.[address] [facility] Comment on above: Performed By: #### 0 [id number] #### [facility] [address] [place] [address], [facility] Neutrophils/100 WBC (Bld) 65.6 % Normal 40.0-72.[address] [facility] Comment on above: Performed By: #### 0 [id number] #### [facility] [address] [place] [address], [facility] Nucleated RBC/100 WBC (Bld) [Ratio] 0 % Normal 0-[address] [facility] Comment on above: Performed By: #### 0 [id number] #### [facility] [address] [place] [address], [facility] PLAT CNT 327 10*3/uL Normal 150-400 The [facility] Comment on above: Performed By: #### 0 [id number] #### [facility] [address] [place] [address], [facility] RBC (Bld) [#/Vol] 4.09 10*6/uL Normal 3.80-5.00 The [facility] Comment on above: Performed By: #### 0 [id number] #### [facility] [address] [place] [address], [facility] WBC (Bld) [#/Vol] 7.03 10*3/uL Normal 4.00-10.60 The [facility] Comment on above: Performed By: #### 0 [id number] #### [facility] [address] PROTHROMBIN TIMEon 9 INR Coag (PPP) [Relative time] 0.93 {INR} Normal 0.91-1.[address] [facility] Comment on above: Result Comment: ACCC P RECOMMENDED INR FOR WARFARIN THERAPY -------- ------- CONDITION INR PROPHYLAXIS OF VENOUS THROMBOSIS 2-3 (HIGH-RISK SURGERY) TREATMENT OF VENOUS THROMBOSIS 2-3 TREATMENT OF PULMONARY EMBOLISM 2-3 PREVENTION OF SYSTEMIC EMBOLISM: 2-3 ACUTE MYOCARDIAL INFARCTION TISSUE HEART VALVES VALVULAR HEART DISEASE ATRIAL FIBRILLATION RECURRENT SYSTEMIC EMBOLISM MECHANICAL HEART VALVE 2.5-3.5 FROM: ORAL ANTICOAGULANTS. MECHANISM OF ACTION, CLINICAL EFFECTIVENESS, AND OPTIMAL THERAPEUTIC RANGE. CHEST 1995;108:231S-246S. Performed By: #### 0 0071 #### [address] PT Coag (PPP) [Time] 12.5 s Normal 12.3-14.[address] [facility] Comment on above: Result Comment: ALL RESULTS MUST BE INTERPRETED WITH RESPECT TO BLOOD DRAWING ARTIFACT OR DILUTION ERROR OF ANTICOAGULANT AT THE TIME OF SAMPLING. Performed By: #### 0 0071 #### [address] MRI SHOULDER WO CONTRAST RIG HTon 10-29-2018 MRI SHOULDER WO CONTRAST RIGHT [facility] Department of Radiology [address] [place] [id number] Patient Name: MARYAM SOLOMON : 1955 Sex: F Age: Race: White Pt. Location: Patient Status: D Ordered Date: 10/17/2018 3:15:00 PM Completed Date: 10/29/2018 04:20 PM Requesting Provider: KRISHNA SOFIA Attending Provider: KRISHNA SOFIA Report Copy To: LALA WATSON Signs & Symptoms: M75.121 Complete rotatr-cuff tear/ruptr of r shoulder, not trauma I10 History: Marie no pc per todd @ [employer] cpt code 99627 call ref# [id number] *mla Comments: , , , Ordering Provider - KRISHNA SOFIA MD , Exam: MRI SHOULDER WO CONTRAST RIGHT MRI SHOULDER WO CONTRAST RIGHT 10/29/2018 4:20 [...] laxity. Joint effusion and bursitis. Electronically signed by:Chandni Odonnell. Transcribed by: [email or web address], User Resident: Electronically Signed by: CHANDNI ODONNELL @ 10/30/2018 12:47 PM Normal The [facility] Comment on above: Order Comment: No: D o not add to previous draw SHOULDER RIGHTon 09-04-2018 SHOULDER RIGHT [facility] Department of Radiology [address] [place] [id number] Patient Name: MARYAM SOLOMON : 1955 Sex: F Age: Race: White Pt. Location: Patient Status: O Ordered Date: 09/04/2018 1:15:00 PM Completed Date: 09/04/2018 01:29 PM Requesting Provider: KRISHNA SOFIA Attending Provider: KRISHNA SOFIA Report Copy To: LALA WATSON Signs & Symptoms: S42.91XD Fx r shoulder girdle, part unsp, subs for fx w routn heal I10 History: [place] Comments: , Views (X-RAY, SHOULDER): AP, Grashey, Y-Lateral, Bernageau , Views (X-RAY, SHOULDER): AP, Grashey, Y-Lateral, Bernageau , , , Ordering Provider - KRISHNA SOFIA MD , Exam: SHOULDER RIGHT SHOULDER RIGHT 09/04/2018 1:29 PM EST SIGNS [...] joint Electronically signed by:Brendan Morin. Transcribed by: [email or web address], User Resident: Electronically Signed by: BRENDAN MORIN @ 09/04/2018 01:55 PM Normal The [facility] Comment on above: Order Comment: No: D o not add to previous draw Operative Reporton 8 Operative Report MR#: [id number] [facility] Pt. Name: Maryam Solomon Room #: [id number] Discharge 08/24/2018 Date: Birthdate: 1955 OPERATIVE REPORT [...] A/Krishna Sofia MD Date Trans: 08/25/2018 09:10 A/elmao [id number]:[id number] cc: Lala Watson M.D. [facility] [address] [facility] [address] Adilene Liu M.D. [facility] Physican...do Not Send [address] [facility] [address] Normal [address] [facility] BASIC METABOLIC PANELon 11-0 Calcium [Mass/Vol] 8.9 mg/dL Normal 8.6-10.[address] [facility] Comment on above: Order Comment: No: D o not add to previous draw Performed By: #### 0 0071 #### [facility] [address] [place] [address], [place] Chloride [Moles/Vol] 102 mmol/L Normal 98-[address] [facility] Comment on above: Order Comment: No: D o not add to previous draw Performed By: #### 0 0071 #### [facility] [address] [place] [address], [place] CO2 [Moles/Vol] 24 mmol/L Normal 21-31 The [facility] Comment on above: Order Comment: No: D o not add to previous draw Performed By: #### 0 0071 #### [facility] [address] [place] [address], [place] Creatinine [Mass/Vol] 0.84 mg/dL Normal 0.60-1.[address] [facility] Comment on above: Order Comment: No: D o not add to previous draw Performed By: #### 0 0071 #### [facility] [address] [place] [address], [place] GFR/1.73 sq M predicted among blacks MDRD (S/P/Bld) [Vol rate/Area] mL/min/{1.73_m2} Normal >[address] [facility] Comment on above: Order Comment: No: D o not add to previous draw Performed By: #### 0 0071 #### [facility] [address] [place] [address], [place] GFR/1.73 sq M predicted among non-blacks MDRD (S/P/Bld) [Vol rate/Area] mL/min/{1.73_m2} Normal >[address] [facility] Comment on above: Order Comment: No: D o not add to previous draw Performed By: #### 0 0071 #### [facility] [address] [place] [address], [place] Glucose [Mass/Vol] 182 mg/dL High 70-100 The [facility] Comment on above: Order Comment: No: D o not add to previous draw Performed By: #### 0 0071 #### [facility] [address] [place] [address], [place] Potassium [Moles/Vol] 4.1 mmol/L Normal 3.5-5.[address] [facility] Comment on above: Order Comment: No: D o not add to previous draw Performed By: #### 0 0071 #### [facility] [address] [place] [address], [place] Sodium [Moles/Vol] 135 mmol/L Low 136-145 The [facility] Comment on above: Order Comment: No: D o not add to previous draw Performed By: #### 0 0071 #### [facility] [address] [place] [address], [place] Urea nitrogen [Mass/Vol] 12 mg/dL Normal 7-[address] [facility] Comment on above: Order Comment: No: D o not add to previous draw Performed By: #### 0 [id number] #### [facility] [address] [facility] [address], [facility] CBC COMPLETE BLOOD COUNTon 10-23-2017 Erythrocyte distribution width (RBC) [Ratio] 12.3 % Normal 11.5-15.[address] [facility] Comment on above: Order Comment: No: D o not add to previous draw Performed By: #### 5 [id number] #### [facility] [address] [place] [address], [facility] Hematocrit (Bld) [Volume fraction] 34.9 % Low 36.0-45.[address] [facility] Comment on above: Order Comment: No: D o not add to previous draw Performed By: #### 5 [id number] #### [facility] [address] [place] [address], [facility] Hemoglobin (Bld) [Mass/Vol] 11.7 g/dL Low 12.0-15.[address] [facility] Comment on above: Order Comment: No: D o not add to previous draw Performed By: #### 5 [id number] #### [facility] [address] [facility] [place] [address], [facility] MCH (RBC) [Entitic mass] 31.7 pg Normal 27.0-33.[address] [facility] Comment on above: Order Comment: No: D o not add to previous draw Performed By: #### 5 [id number] #### [facility] [address] [facility] [place] [address], [facility] MCHC (RBC) [Mass/Vol] 33.5 g/dL Normal 32.0-35.[address] [facility] Comment on above: Order Comment: No: D o not add to previous draw Performed By: #### 5 [id number] #### [facility] [address] [place] [address], [facility] MCV (RBC) [Entitic vol] 94.6 fL Normal 82.0-98.[address] [facility] Comment on above: Order Comment: No: D o not add to previous draw Performed By: #### 5 [id number] #### [facility] [address] [place] [address], [facility] Nucleated RBC/100 WBC (Bld) [Ratio] 0 % Normal 0-[address] [facility] Comment on above: Order Comment: No: D o not add to previous draw Performed By: #### 5 [id number] #### [facility] [address] [facility] [place] [address], [facility] PLAT CNT 322 10*3/uL Normal 150-400 The [facility] Comment on above: Order Comment: No: D o not add to previous draw Performed By: #### 5 [id number] #### [facility] [address] [place] [address], [facility] RBC (Bld) [#/Vol] 3.69 10*6/uL Low 3.80-5.00 The [facility] Comment on above: Order Comment: No: D o not add to previous draw Performed By: #### 5 [id number] #### [facility] [address] [facility] [place] [address], [facility] WBC (Bld) [#/Vol] 16.41 10*3/uL High 4.00-10.60 [facility] Comment on above: Order Comment: No: D o not add to previous draw Performed By: #### 5 [id number] #### [facility] [address] UPPER EXTREMITY WO CONTRA ST RIGHTon 08-23-2018 CT UPPER EXTREMITY WO CONTRAST RIGHT [facility] Department of Radiology [address] [place] [address] Patient Name: MARYAM SOLOMON : 1955 Sex: F Age: Race: White Pt. Location: [id number] Patient Status: I Ordered Date: 08/23/2018 8:45:00 AM Completed Date: 08/23/2018 12:57 PM Requesting Provider: IKE MORLEY Attending Provider: KRISHNA SOFIA Report Copy To: Signs & Symptoms: Fracture History: Patient history not available Comments: R/O Fractures, Right shoulder CT scan to evaluate fx pattern Exam: CT UPPER EXTREMITY WO CONTRAST RIGHT CT UPPER EXTREMITY WO CONTRAST RIGHT 08/23/2018 [...] site 3. No glenoid fracture Electronically signed by:Chandni Odonnell. Transcribed by: [email or web address], User Resident: Electronically Signed by: CHANDNI ODONNELL @ 08/23/2018 01:20 PM Normal The [facility] Comment on above: Order Comment: R/O F ractures, Right shoulder CT scan to evaluate fx pattern Consultationon 08-23-2018 Consultation MR#: [id number] [facility] Pt. Name: Maryam Solomon Date of Service: 08/23/2018 Room #: [id number] Birthdate: 1955 Referring Physician: CONSULTATION HISTORY OF [...] Mchugh MD Date Trans: 08/23/2018 09:21 P/mmo [id number] cc: Lala Watson M.D. [facility] [address] [facility] [address] Adilene Liu M.D. [facility]do Not Send [address] [facility] [address] Normal [address] [facility] PORTABLE SHOULDER RIGHT 2 VW Son 08-23-2018 PORTABLE SHOULDER RIGHT [address] [facility] Department of Radiology [address] [place] [address] Patient Name: MARYAM SOLOMON : 1955 Sex: F Age: Race: White Pt. Location: [facility] Patient Status: I Ordered Date: 08/23/2018 1:40:00 AM Completed Date: 08/23/2018 07:48 AM Requesting Provider: OCTAVIO SHARMA Attending Provider: OCTAVIO SHARMA Report Copy To: Signs & Symptoms: Post Reduction History: Patient history not available Comments: R/O Dislocation, 3 views; Grashey, scapular Y, and axillary (or velpeau if cannot obtain satisfactory axillary) Exam: PORTABLE SHOULDER RIGHT 2 VWS PORTABLE SHOULDER RIGHT 2 VWS 08/23/2018 7:48 [...] site rather than bony Bankart Electronically signed by:Chandni Odonnell. Transcribed by: [email or web address], User Resident: Electronically Signed by: CHANDNI ODONNELL @ 08/23/2018 09:02 AM Normal The [facility] Comment on above: Order Comment: R/O D islocation, 3 views; Grashey, scapular Y, and axillary (or velpeau if cannot obtain satisfactory axillary) PROTHROMBIN TIMEon 8 INR Coag (PPP) [Relative time] 0.97 {INR} Normal 0.91-1.[address] [facility] Comment on above: Order Comment: No: D o not add to previous draw Result Comment: ACCC P RECOMMENDED INR FOR WARFARIN THERAPY -------- ------- CONDITION INR PROPHYLAXIS OF VENOUS THROMBOSIS 2-3 (HIGH-RISK SURGERY) TREATMENT OF VENOUS THROMBOSIS 2-3 TREATMENT OF PULMONARY EMBOLISM 2-3 PREVENTION OF SYSTEMIC EMBOLISM: 2-3 ACUTE MYOCARDIAL INFARCTION TISSUE HEART VALVES VALVULAR HEART DISEASE ATRIAL FIBRILLATION RECURRENT SYSTEMIC EMBOLISM MECHANICAL HEART VALVE 2.5-3.5 FROM: ORAL ANTICOAGULANTS. MECHANISM OF ACTION, CLINICAL EFFECTIVENESS, AND OPTIMAL THERAPEUTIC RANGE. CHEST 1995;108:231S-246S. Performed By: #### 5 6101 #### [address] PT Coag (PPP) [Time] 12.9 s Normal 12.3-14.[address] [facility] Comment on above: Order Comment: No: D o not add to previous draw Result Comment: ALL RESULTS MUST BE INTERPRETED WITH RESPECT TO BLOOD DRAWING ARTIFACT OR DILUTION ERROR OF ANTICOAGULANT AT THE TIME OF SAMPLING. Performed By: #### 5 [id number] #### [address] SHOULDER RIGHTon 08-23-2018 SHOULDER RIGHT [facility] Department of Radiology [address] [place] [id number] Patient Name: MARYAM SOLOMON : 1955 Sex: F Age: Race: White Pt. Location: [id number] Patient Status: I Ordered Date: 08/23/2018 2:10:00 PM Completed Date: 08/23/2018 04:30 PM Requesting Provider: KRISHNA SOFIA Attending Provider: KRISHNA SOFIA Report Copy To: Signs & Symptoms: RIGHT SHOULDER CLOSED VS. OPEN REDUCTION History: RIGHT SHOULDER CLOSED VS. OPEN REDUCTION Comments: RIGHT SHOULDER CLOSED VS. OPEN REDUCTION Exam: SHOULDER RIGHT SHOULDER RIGHT 08/23/2018 4:30 PM EDT SIGNS [...] Dacosta on 08/23/2018 5:59 PM EDT. I, Dustin Rowe, have reviewed the images and report and concur with these findings. Electronically signed by:Dustin Rowe. Transcribed by: [email or web address], User Resident: DAMIÁN DACOSTA Electronically Signed by: DUSTIN ROWE @ 08/24/2018 05:40 PM I personally read this/these film(s) with this resident Normal The [facility] Comment on above: Order Comment: RIGHT SHOULDER CLOSED VS. OPEN REDUCTION TYPE AND SCREENon 08-23-2018 ABO INTERPRETATION O Normal [facility] Comment on above: Performed By: #### 6 [id number] #### [facility] [address] [place] [address], [facility] RH INTERPRETATION Positive Normal [facility] Comment on above: Performed By: #### 6 [id number] #### [facility] [address] [place] [address], [place] Vital Signs Date Time Vital Sign Value Performing Clinician Facility 07-28-2025 13:24-0400 Body mass index (BMI) [Ratio] 32.28 kg/m2 Iraida Carrillo MD Work Phone: [facility] 07-28-2025 13:24-0400 Body weight 88 kg Iraida Carrillo MD Work Phone: [facility] 07-28-2025 13:24-0400 Diastolic blood pressure 74 mm[Hg] Iraida Carrillo MD Work Phone: [facility] 07-28-2025 13:24-0400 Systolic blood pressure 120 mm[Hg] Iraida Carrillo MD Work Phone: [facility] 07-07-2025 10:48-0400 Body height 165.1 cm Iraida Carrillo MD Work Phone: [facility] 07-07-2025 10:48-0400 Body mass index (BMI) [Ratio] 32.78 kg/m2 Iraida Carrillo MD Work Phone: [facility] 07-07-2025 10:48-0400 Body weight 89.36 kg Iraida Carrillo MD Work Phone: [facility] 07-07-2025 10:48-0400 Diastolic blood pressure 74 mm[Hg] Iraida Carrillo MD Work Phone: [facility] 07-07-2025 10:48-0400 Systolic blood pressure 120 mm[Hg] rIaida Carrillo MD Work Phone: [facility] 06-16-2025 13:07-0400 Body height 165.1 cm Iraida Carrillo MD Work Phone: [facility] 06-16-2025 13:07-0400 Body mass index (BMI) [Ratio] 32.78 kg/m2 Iraida Carrillo MD Work Phone: [facility] 06-16-2025 13:07-0400 Body weight 89.36 kg Iraida Carrillo MD Work Phone: [facility] 06-16-2025 13:07-0400 Diastolic blood pressure 72 mm[Hg] Iraida Carrillo MD Work Phone: [facility] 06-16-2025 13:07-0400 Systolic blood pressure 118 mm[Hg] Iraida Carrillo MD Work Phone: [facility] 09-05-2023 15:01-0500 Blood Pressure Location Eron MULLER [facility] 09-05-2023 15:01-0500 Diastolic blood pressure 94 mm[Hg] Eron HUSTONL [facility] 09-05-2023 15:01-0500 Heart rate 70 /min Eron NILL [facility] 09-05-2023 15:01-0500 Respiratory rate 16 /min Eron MULLER [facility] 09-05-2023 15:01-0500 Systolic blood pressure 152 mm[Hg] Eron MULLER [facility] Encounters Encounter Date Encounter Type Care Provider Facility Start: 07-28-2025 End: 07-28-2025 ambulatory IRADIA CARRILLO Not Available Start: 07-28-2025 End: 07-28-2025 Office outpatient visit 15 minutes Iraida Carrillo MD Work Phone: [facility] Comment on above: Vaginitis and vulvov aginitis; Cystocele with rectocele; Urinary incontinence, unspecified type; Postmenopausal atrophic vaginitis Start: 07-18-2025 End: 07-20-2025 Telephone encounter Iraida Carrillo MD Work Phone: [facility] Start: 07-07-2025 End: 07-07-2025 Office outpatient visit 15 minutes Iraida Carrillo MD Work Phone: [facility] Comment on above: Acute vaginitis (Bobbi gracia Dx); Urinary incontinence, unspecified type; Rectocele; Cystocele with rectocele; Vaginitis and vulvovaginitis; Postmenopausal atrophic vaginitis Start: 07-07-2025 End: 07-07-2025 ambulatory IRAIDA CARRILLO Not Available Start: 06-20-2025 End: 06-20-2025 Orders Only Iraida Carrillo MD Work Phone: [facility] Comment on above: Acute vaginitis (Bobbi gracia Dx) Start: 06-16-2025 End: 06-16-2025 Patient encounter procedure Iraida Carrillo MD Work Phone: [facility] Comment on above: Encounter for gyneco logical examination; Mass of breast, unspecified laterality; Breast tenderness; Hard stool; Vaginal burning; Urinary incontinence, unspecified type; Vaginitis and vulvovaginitis; Encounter for gynecological examination without abnormal finding Start: 06-16-2025 End: 06-16-2025 Patient encounter status Iraida Carrillo MD Work Phone: [facility] Start: 06-16-2025 End: 06-16-2025 ambulatory IRAIDA CARRILLO Not Available Start: 05-23-2024 End: 05-23-2024 Subsequent hospital visit by physician Elizabeth Flores MD Work Phone: [facility] Comment on above: Bilateral lower abdo flavio pain Start: 05-23-2024 End: 05-25-2024 ambulatory [facility] Start: 05-14-2024 End: 05-14-2024 ambulatory [facility] Start: 05-14-2024 Encounter for gynecological examination (general) (routine) without abnormal findings [facility] Start: 05-14-2024 End: 05-14-2024 Patient encounter status Lala Watson MD Work Phone: [facility] Start: 05-14-2024 End: 05-14-2024 Subsequent hospital visit by physician Lala Watson MD Work Phone: [facility] Comment on above: Encounter for routin e gynecologic examination in Medicare patient Start: 10-10-2023 End: 10-11-2023 ambulatory Eron MULLER Facility:[facility] Start: 10-10-2023 End: 10-10-2023 Patient encounter procedure Eron MULLER General Surgery [facility] Start: 09-27-2023 End: 09-28-2023 ambulatory Eron MULLER Facility:CD:[id number] Start: 09-05-2023 End: 09-06-2023 ambulatory Eron MULLER Facility:[facility] Start: 09-05-2023 End: 09-05-2023 Patient encounter procedure Eron MULLER General Surgery Nill/S[facility] Start: 11-22-2022 ambulatory Eron MULLER Facility :[facility] Start: 09-21-2022 End: 09-22-[address] LALA WATSON Facility:[facility] Start: 08-22-2022 End: 08-22-2022 Patient encounter procedure Lala Watson MD Work Phone: [facility] Start: 08-22-2022 End: 08-22-2022 Subsequent hospital visit by physician Lala Watson MD Work Phone: [facility] Comment on above: Women's annual routi ne gynecological examination Start: 05-02-2022 End: 05-03-[address] LALA WATSON Facility: Start: [address] LALA WATSON Facility : Start: 04-20-2020 End: 04-20-2020 Subsequent hospital visit by physician Lala Watson [facility] Comment on above: Encounter for well w iveth exam with routine gynecological exam Start: 08-02-2019 End: 08-03-2019 Evaluation and management of inpatient KRISHNA SOFIA [facility] Start: 11-27-2018 End: 11-28-2018 Patient encounter procedure KRISHNA JOSE ROBERTONathanael [facility] Start: 08-23-2018 End: 08-24-2018 Evaluation and management of inpatient ADILENE LIU [facility] Procedures Date Procedure Procedure Detail Performing Clinician Start: 06-16-2025 GENITAL MYCOPLASMAS JOSE DAVID, SWAB Iraida Carrillo MD Work Phone: Start: 06-16-2025 Iadna chlamydia trac homatis amplified probe tq Iraida Carrillo MD Work Phone: Start: 06-16-2025 IGP, APT HPV,RFX 16/18,45 Iraida Carrillo MD Work Phone: Start: 05-23-2024 Urinalysis microscopic only Elizabeth Flores MD Work Phone: Start: 05-23-2024 Urnls dip stick/tabl et rgnt auto w/o microscopy Elizabeth Flores MD Work Phone: Start: 05-23-2024 Comprehensive metabo lic panel Elizabeth Flores MD Work Phone: Start: 09-27-2023 Colonoscopy Iraida zhu MD Work Phone: Start: 09-27-2023 Colonoscopy Eron ARANDA Start: 08-03-2019 [...] above: Performed By: #### 6 [id number] #### [address] Start: 08-23-2018 REPOSITION RIGHT MIMA ULDER JOINT, EXTERNAL APPROACH OSAMA ELATTAR Start: 09-12-2017 Mammography Iraida zhu MD Work Phone: Start: 10-23-1976 Appendectomy Eron ELE LL Comment on above: [facility] Arthroplasty of righ t shoulder Eron HUSTONL Colonoscopy Eron NILL Colonoscopy Eron NILL Comment on above: x 2 ([facility]) Repair of musculoten dinous cuff of shoulder rEon MULLER Tonsillectomy Eron HUSTONRocio Vaginal hysterectomy Eron HUSTONRocio Plan of Treatment Date Care Activity Detail Author Start: 09-27-2033 Screening for malign ant neoplasm of colon [facility] Start: 08-14-2026 Screening for malign ant neoplasm of colon [facility] Start: 06-18-2026 End: 06-18-2026 Patient encounter procedure 06/18/2026 1:45 PM EDT Office Visit P[facility] Jonesmary lou GARZAN [address] [place] [id number] Iraida Carrillo MD [address] [place] [address] [facility] Start: 08-12-2025 End: 08-12-2025 Professional / ancillary services management [facility] Start: 07-28-2025 End: 07-28-2025 Patient encounter procedure 07/28/2025 1:15 PM EDT Office Visit PAM Jonesmary lou ARTHURGYN [address] [place] [phone] Iraida Carrillo MD [address] [place] [address] [facility] [place] [facility] Start: 07-07-2025 End: 07-07-2025 Patient encounter procedure 07/07/2025 10:45 AM EDT Office Visit [facility] [place] [facility] [address] [place] [id number] Iraida Carrillo MD [address] [place] [address] [facility] Start: 06-23-2025 Influenza vaccination Influenza Vacc ine (#1) [facility] Start: 06-16-2025 End: 08-16-2026 DBT Breast - bilateral diagnostic Bilateral diagnostic mammogram with tomosynthesis Imaging Routine Mass of breast, unspecified laterality Breast tenderness Expected: 06/16/2025, Expires: 08/16/2026 [facility] Work Phone: Comment on above: Expected: 06/16/2025 , Expires: 08/16/2026 Start: 06-16-2025 End: 08-16-2026 US Breast - bilateral Bilateral breast US complete Imaging Routine Mass of breast, unspecified laterality Breast tenderness Expected: 06/16/2025, Expires: 08/16/2026 [facility] Comment on above: Expected: 06/16/2025 , Expires: 08/16/2026 Start: 05-23-2024 Influenza vaccination Flu vaccine (# 1) [facility] Start: 10-23-2023 Annual Wellness Visi t (Medicare Advantage) Annual Wellness Visit (Medicare Advantage) [facility] Start: 09-21-2023 End: 09-21-2023 Patient encounter procedure 09/21/2023 Office Visit Obstetrics and Gynecology Elizabeth Flores MD [address] [place] [address] [address] [place], [place] [id number] [facility] Start: 08-24-2023 End: 08-24-2023 Patient encounter procedure 08/24/2023 Office Visit Obstetrics and Gynecology Elizabeth Flores MD [address] [facility] [address] [place] [address] [facility] Start: 06-23-2023 COVID-19 Vaccine ( season) COVID-19 Vaccine ( season) [facility] Start: 08-25-2022 Screening for malign ant neoplasm of breast Breast cancer screen [facility] Start: 05-23-2022 Influenza vaccination Flu vaccine (# 1) [facility] Start: 05-18-2022 COVID-19 Vaccine (5 - Booster for Pfizer series) COVID-19 Vaccine (5 - Booster for Pfizer series) [facility] Start: 03-08-2022 Pneumococcal 65+ yea rs Vaccine (2 - PPSV23 if available, else PCV20) Pneumococcal 65+ years Vaccine (2 - PPSV23 if available, else PCV20) [facility] Start: 03-08-2022 Pneumococcal 65+ yea rs Vaccine (2 of 2 - PPSV23 or PCV20) Pneumococcal 65+ years Vaccine (2 of 2 - PPSV23 or PCV20) [facility] Start: 03-08-2022 Pneumococcal Vaccine : 65+ Years (2 of 2 - PPSV23) Pneumococcal Vaccine: 65+ Years (2 of 2 - PPSV23) [facility] Start: 06-23-2020 Influenza vaccination Flu vacc ine (Season Ended) [place], [place] Start: 05-17-2019 Screening for malign ant neoplasm of cervix Cervical cancer screen [place], [place] Start: 09-12-2018 Screening for malign ant neoplasm of breast [facility] Start: 2010 Screening for osteoporosis DEXA (modify frequency per FRAX score) [facility] Start: 2005 Screening for malign ant neoplasm of colon Colon cancer screen colonoscopy [place], [place] Start: 2005 Shingles Vaccine (1 of 2) Shingles Vaccine (1 of 2) [facility] Start: 2000 Screening for malign ant neoplasm of colon [facility] Start: 1995 Diabetes screen Diabetes screen [place], [place] Start: 1990 Diabetes screen Diabetes screen [facility] Start: 1974 DTaP/Tdap/Td vaccine (1 - Tdap) DTaP/Tdap/Td vaccine (1 - Tdap) [facility] Start: 1973 Hepatitis C screening [facility] Start: 1970 HIV screening HIV screen [place], [place] Start: 1967 Depression Screen Depression Screen [facility] Start: 1965 Lipid panel [facility] Start: 1955 Creatinine measurement Creatinine mo nitoring [place], [place] Start: 1955 Hepatitis C screening [facility] [place] [place] Start: 1955 Potassium monitoring Potassium monit seanng [place], [place] Start: 1955 Screening for malign ant neoplasm of colon [facility] End: 04-20-2020 Cytopathology procedure, preparation of smear, genital source PAP SMEAR Lab Routine Encounter For [facility] Woman Exam With Routine Gynecological Exam 1 Occurrences starting 04/20/2020 until 04/20/2020 [place] Comment on above: 1 Occurrences starti ng 04/20/2020 until 04/20/2020 End: 08-22-2022 Cytopathology procedure, preparation of smear, genital source PAP SMEAR Lab Routine Women's annual routine gynecological examination 1 Occurrences starting 08/22/2022 until 08/22/2022 [facility] Work Phone: Comment on above: 1 Occurrences starti ng 08/22/2022 until 08/22/2022 End: 05-14-2024 Cytopathology procedure, preparation of smear, genital source PAP SMEAR Lab Routine Encounter for routine gynecologic examination in Medicare patient 1 Occurrences starting 05/14/2024 until 05/14/2024 [facility] Comment on above: 1 Occurrences starti ng 05/14/2024 until 05/14/2024 GENITAL MYCOPLASMAS JOSE DAVID, SWAB GENITAL MYCOPLASMAS JOSE DAVID, SWAB Pathology and Cytology Routine Vaginitis and vulvovaginitis Ordered: 07/07/2025 [facility] Comment on above: Ordered: 07/07/2025 GENITAL MYCOPLASMAS JOSE DAVID, SWAB GENITAL MYCOPLASMAS JOSE DAVID, SWAB Pathology and Cytology Routine Vaginitis and vulvovaginitis Ordered: 07/28/2025 [facility] Work Phone: Comment on above: Ordered: 07/28/2025 NuSwab Vaginitis Plu s (VG+) NuSwab Vaginitis Plus (VG+) Microbiology Routine Vaginitis and vulvovaginitis Ordered: 07/07/2025 [facility] Work Phone: Comment on above: Ordered: 07/07/2025 Immunizations Immunization Date Immunization Notes Care Provider [facility] 08-31-2023 influenza virus vaccine, unspecified formulation Iraida Carrillo MD Work Phone: [facility] 07-23-2023 influenza virus vaccine, unspecified formulation Eron MULLER [facility] 09-21-2022 influenza virus vaccine, unspecified formulation Eron MULLER [facility] 09-21-2022 SARS-CoV-2 (COVID-19 ) [id number] Eron MULLER [facility] 03-23-2022 SARS-CoV-2 mRNA (kophbjuezgt-ditn-hqowo se) vaccine Eron MULLER [facility] 08-09-2021 SARS-CoV-2 (COVID-19 ) mRNA BNT-162b2 vax Eron MULLER [facility] Comment on above: Result Comment: 2022: [id number] 01-12-2021 SARS-CoV-2 (COVID-19 ) mRNA BNT-162b2 vax Eron MULLER [facility] 12-21-2020 SARS-CoV-2 (COVID-19 ) mRNA BNT-162b2 vax Eron MULLER [facility] Payers Date Payer Category Payer Medicare (Managed Care) [employer] [id number] 2020 [facility] [id number] 2020 Unknown [id number] 2019 Unknown BCBS [place] - [place] P PO xxxxxxxxxxxxxxx 2019-Present [address] [place] [address] xxxxxxxxxxxxxxx [id number] 2019 Unknown [id number] 1959 Self-pay [id number] 1959 Unknown [id number] 1959 Unknown [id number] 1955 Unknown [id number] 2.16.840.1.730499.3.579.2.6 47 1955 Unknown [id number] 2.16.840.1.854117.3.579.2.6 47 1955 Unknown [id number] 2.16.840.1.765055.3.579.2.6 47 1955 Unknown [id number] 2.16.840.1.316091.3.579.2.5 93 1955 Unknown [id number] 2.16.840.1.398701.3.579.2.5 93 1955 Unknown [id number] 2.16.840.1.776037.3.579.2.5 93 1955 Unknown [id number] 2.16.840.1.264317.3.579.2.7 27 1955 Unknown [id number] 2.16.840.1.173784.3.579.2.7 27 1955 Unknown [id number] 2.16.840.1.892049.3.579.2.7 27 1955 Unknown [id number] 2.16.840.1.422893.3.579.2.7 27 1955 Unknown [id number] 2.16.840.1.928837.3.579.2.1 73 1955 Unknown [id number] 2.16.840.1.806139.3.579.2.1 73 1955 Unknown [id number] 2.16.840.1.451469.3.579.2.1 73 1955 Unknown [id number] 2.16.840.1.395425.3.579.2.1 259 1955 Unknown [id number] 2.16.840.1.554078.3.579.2.1 259 1955 Unknown [id number] [id number] 259 Social History Date Type Detail Facility Start: 04-20-2020 End: 09-05-2023 Tobacco smoking status AKIS Never smoker [place], [place] Start: 04-20-2020 End: 05-14-2024 Alcohol intake Current drinker of alcohol (finding) [place], [place] Start: 1955 Sex Assigned At Not on file [place], [place] Exposure to SARS-CoV-2 (event) Unable to assess [place] Start: 04-20-2020 Tobacco use and exposure Smokeless tobacco non-user [facility] Work Phone: Tobacco smoking status Never [facility] Start: 05-14-2024 Sex Assigned At Female F [facility] Start: 05-14-2024 History of Social function [facility] Start: 07-07-2025 Tobacco smoking status AKIS Tobacco smoking consumption unknown [facility] Functional Status Date Assessment Result Facility 09-05-2023 Functional Status N/A [facility] Clinical Notes 05-02-2022 to 07-28-2025 Iraida Carrillo MD - 07/28/2025 1:15 PM EDTTelephone Encounter - Iraida Carrillo MD - 07/20/2025 7:50 PM EDTTelephone Encounter - Iraida Carrillo MD - 07/20/2025 7:50 PM EDT Note Date & Type Note Facility 07-28-2025 History of Presen t illness Narrative Images from the original note were not included. Iraida Carrillo MD Obstetrics and Gynecology Patient: Maryam Solomon : 1955 (69 y.o.) Exam Date: 07/28/2025 Reason for Visit - Chief Complaint Patient presents with Pessary Check Patient present for pessary check and reswab for ureaplasma. Patient denies any new issues or concerns. 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 She continues to experience pain that is alleviated with coconut oil application. The patient reports experiencing internal spasms that are unpredictable in timing, which she finds particularly concerning because she cannot anticipate when they will occur. She does not currently use a pessary for her prolapse management. The patient is considering surgical intervention for her prolapse and is contemplating the surgical options discussed. Additionally, she received a call from the office regarding an additional mammogram, which she clarified with her insurance company would be covered as a diagnostic study, having already had her screening mammogram in September. History of Present Illness, Associated Treatments and Results - OB History Para Term AB Living 3 0 0 0 1 0 SAB IAB Ectopic Multiple Live Births 0 0 0 0 2 # Outcome Date GA Lbr Eric/2nd Weight Sex Type Anes PTL Lv 3 2 1 AB Review of Systems - Constitutional: Negative. HENT: Negative. Eyes: Negative. Respiratory: Negative. Cardiovascular: Negative. Gastrointestinal: Negative. Endocrine: Negative. Genitourinary: Negative. Musculoskeletal: Negative. Skin: Negative. Allergic/Immunologic: Negative. Neurological: Negative. Hematological: Negative. Psychiatric/Behavioral: Negative. No Known Allergies Current Outpatient Medications: Estradiol (Imvexxy Maintenance Pack) 4 MCG insert, Insert 1 suppository into the vagina 2 (two) times a week, Disp: 8 each, Rfl: 2 triamcinolone (Kenalog) 0.1 % cream, Apply topically in the morning and before bedtime., Disp: 30 g, Rfl: 2 History reviewed. No pertinent past medical history. History reviewed. No pertinent surgical history. No family history on file. Social History Tobacco Use Smoking Status Unknown Smokeless Tobacco Not on file Family History Problem Relation Age of Onset Heart Disease Father High Blood Pressure Father Heart Disease Mother Breast Cancer Mother High Blood Pressure Mother Physical Exam - General appearance, mentation, extraocular movements, facial strength and movement, hearing, upper and lower extremity strength and tone, sensation to gross testing, coordination, and gait are normal or at baseline unless noted below. Physical Exam Constitutional: Appearance: Normal appearance. Genitourinary: Right Labia: No rash. Left Labia: No rash. Vaginal cuff intact. No vaginal discharge. Anterior vaginal prolapse present. Moderate vaginal atrophy present. No cervical lesion. Uterus is absent. HENT: Head: Normocephalic and atraumatic. Neurological: Mental Status: She is alert and oriented to person, place, and time. Psychiatric: Mood and Affect: Mood normal. Behavior: Behavior normal. Short vagina Assessment/Plan ICD-10-CM 1. Vaginitis and vulvovaginitis N76.0 GENITAL MYCOPLASMAS JOSE DAVID, SWAB 2. Cystocele with rectocele N81.10 N81.6 3. Urinary incontinence, unspecified type R32 4. Postmenopausal atrophic vaginitis N95.2 Pelvic organ prolapse Assessment: Patient has pelvic organ prolapse and is not currently using a pessary. She experiences internal spasms that are unpredictable and painful. She is considering surgical intervention but has not yet scheduled an appointment with a surgeon. The surgical approach would involve tacking up the bladder and rectum, with mesh placement for bladder support but not for rectum. The mesh to be used is described as tried and true, distinct from the problematic mesh from 4-5 years ago. However, surgery may not address the spasm symptoms she is experiencing. Plan: - Patient to consider surgical options for prolapse repair - Referral to be provided once patient schedules surgical consultation appointment - Patient advised that surgery would support bladder and rectum with mesh placement for bladder support - Patient informed that surgery may not resolve internal spasm symptoms Breast imaging follow-up Assessment: Patient received a call from the office regarding additional mammogram. She had screening mammogram in September and insurance company confirmed coverage for diagnostic mammogram and ultrasound. Plan: - Proceed with diagnostic mammogram and ultrasound at any time - Schedule both studies simultaneously at imaging facility - Insurance coverage confirmed for diagnostic studies Repeat Ureaplasma culture today Annual follow-up care Assessment: Patient requires routine annual follow-up care as it has been one year since last visit. Plan: - Schedule follow-up visit in one year Assessment & Plan Electronically signed by Iraida Carrillo MD documented in this encounter [facility] 07-20-2025 Telephone encounter Note Positive culture [facility] 07-20-2025 Miscellaneous Notes Positive culture documented in this encounter [facility] 07-07-2025 History of Presen t illness Narrative Images from the original note were not included. Iraida Carrillo MD Obstetrics and Gynecology Patient: Maryam Solomon : 1955 (69 y.o.) Exam Date: 07/07/2025 Reason for Visit - Chief Complaint Patient presents with Pessary Check Patient present for pessary check, patient denies any issues or complaints at this time. 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 She reports using Estrace cream as prescribed, which has been effective, but continues to experience symptoms. The patient also mentions using coconut oil for relief. She describes a burning sensation and muscle spasms after washing the area. The patient notes that the dryness has been constant, accompanied by persistent burning. The patient mentions that a previously prescribed cream caused burning. She also reports experiencing what she describes as bubbles (cystocel/rectocele)popping out, which may be related to her rectocele. The patient inquires about the possibility of surgery for her cysts and rectocele, expressing concern about the symptoms these conditions are causing. Visit Vitals BP 120/74 (BP Location: Left arm) Ht 5' 5 Wt 197 lb BMI 32.78 kg/m OB Status Postmenopausal Smoking Status Unknown BSA 2.02 m Last pessary maintenance: 06/16/25 Uterine prolapse, cystocele, rectocele Urinary incontinence Last New Pessary Given on: 06/16/[address] Vaginal irritation Positive Ureaplasma with Zithromax Imvexxy History of Present Illness, Associated Treatments and Results - OB History Para Term AB Living 3 0 0 0 1 0 SAB IAB Ectopic Multiple Live Births 0 0 0 0 2 # Outcome Date GA Lbr Eric/2nd Weight Sex Type Anes PTL Lv 3 2 1 AB Review of Systems - Constitutional: Negative. HENT: Negative. Eyes: Negative. Respiratory: Negative. Cardiovascular: Negative. Gastrointestinal: Negative. Endocrine: Negative. Genitourinary: Negative. Musculoskeletal: Negative. Skin: Negative. Allergic/Immunologic: Negative. Neurological: Negative. Hematological: Negative. Psychiatric/Behavioral: Negative. No Known Allergies Current Outpatient Medications: terconazole (Terazol 7) 0.4 % vaginal cream, Insert 1 applicator into the vagina at bedtime for 7 days, Disp: 45 g, Rfl: 2 triamcinolone (Kenalog) 0.1 % cream, Apply topically in the morning and before bedtime., Disp: 30 g, Rfl: 2 History reviewed. No pertinent past medical history. History reviewed. No pertinent surgical history. No family history on file. Social History Tobacco Use Smoking Status Unknown Smokeless Tobacco Not on file Physical Exam - General appearance, mentation, extraocular movements, facial strength and movement, hearing, upper and lower extremity strength and tone, sensation to gross testing, coordination, and gait are normal or at baseline unless noted below. Physical Exam Constitutional: Appearance: Normal appearance. Genitourinary: Right Labia: No rash. Left Labia: No rash. Vaginal cuff intact. No vaginal discharge. Anterior and posterior vaginal prolapse present. No vaginal atrophy present. HENT: Head: Normocephalic and atraumatic. Neurological: Mental Status: She is alert and oriented to person, place, and time. Psychiatric: Mood and Affect: Mood normal. Behavior: Behavior normal. Vulvitis Cystocele rectocele Assessment/Plan ICD-10-CM 1. Acute vaginitis N76.0 terconazole (Terazol 7) 0.4 % vaginal cream 2. Urinary incontinence, unspecified type R32 3. Rectocele N81.6 4. Cystocele with rectocele N81.10 N81.6 5. Vaginitis and vulvovaginitis N76.0 NuSwab Vaginitis Plus (VG+) GENITAL MYCOPLASMAS JOSE DAVID, SWAB 1. Vaginal dryness and irritation: - Assessment: Patient reports ongoing vaginal dryness and irritation despite using Estrace cream and coconut oil. There is a possibility of a mild yeast infection contributing to symptoms, as evidenced by slight discharge observed during examination. The patient also experiences muscle spasms after washing, which may be related to the vaginal irritation. - Plan: Imvexxy samples given Vaginal cultures obtained . Vaginal dryness and burning: -: 2. Rectocele: - Assessment: Patient has existing rectocele, which may be contributing to some symptoms. Surgical intervention is a potential option but not immediately necessary. - Plan: a) Defer discussion of surgical intervention for rectocele until vaginal dryness and irritation are resolved b) Reassess need for surgical intervention at follow-up appointment Assessment & Plan Electronically signed by Iraida Carrillo MD documented in this encounter [facility] 06-20-2025 History of Presen t illness Narrative Positive cultures documented in this encounter [facility] 06-16-2025 History of Presen t illness Narrative Images from the original note were not included. Iraida Carrillo MD Obstetrics and Gynecology Patient: Maryam Solomon : 1955 (69 y.o.) Exam Date: 06/16/2025 Reason for Visit - Chief Complaint Patient presents with Gynecologic Exam Patient present for yearly, patient denies any issues with breast. Patient has complaints of a prolapse bowel. 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 Patient states se constantly has burning in her vagina, she is able to feel it when she wipes, she denies any bleeding, She states she has a weak bladder for years, and she wears underwear, she reports if she tries to wear a pad, it hurts due to the bulge, she states her stool does get hard and is very painful, she denies any pain in her abdomin, she states the majority of the pain/pressure/spasms are below her belly button in the pubic area, she is not sexually active, she had a partial hysterectomy in 29 yrs ago, she is having breast tenderness and lumps' however is current with mammogram, she is going to continue with yearly pap's with her PCP, who advised her the cervix is gone History of Present Illness History of Present Illness 69-year-old female presents with persistent with cystocele and rectocele. The patient reports experiencing vaginal dryness, for which she started taking [id number] pills. While these helped with the dryness, she noticed an increase in her blood pressure. She also mentions having spasms and occasional short, sharp pains that go straight up, making her feel like her insides are full. The patient went through menopause approximately two years ago, at age 67, and began experiencing hot flashes at that time. She recently had a colonoscopy Visit Vitals BP 118/72 (BP Location: Left arm) Ht 5' 5 Wt 197 lb BMI 32.78 kg/m OB Status Postmenopausal BSA 2.02 m History of Present Illness, Associated Treatments and Results - OB History Para Term AB Living 3 0 0 0 1 0 SAB IAB Ectopic Multiple Live Births 0 0 0 0 2 # Outcome Date GA Lbr Eric/2nd Weight Sex Type Anes PTL Lv 3 2 1 AB Constitutional: Negative. HENT: Negative. Eyes: Negative. Respiratory: Negative. Cardiovascular: Negative. Gastrointestinal: Negative. Endocrine: Negative. Genitourinary: Negative. Musculoskeletal: Negative. Skin: Negative. Allergic/Immunologic: Negative. Neurological: Negative. Hematological: Negative. Psychiatric/Behavioral: Negative. Past Medical History Diagnosis Date Hypertension Anxiety Past Surgical History Procedure Laterality Date Hysterectomy Appendectomy Tonsillectomy Family History Problem Relation Age of Onset Heart Disease Father High Blood Pressure Father Heart Disease Mother Breast Cancer Mother High Blood Pressure Mother No Known Allergies Current Outpatient Medications: azithromycin (Zithromax) 500 MG tablet, Take 1 tablet (500 mg) by mouth Daily for 10 days, Disp: 10 tablet, Rfl: 1 triamcinolone (Kenalog) 0.1 % cream, Apply topically in the morning and before bedtime., Disp: 30 g, Rfl: 2 History reviewed. No pertinent past medical history. History reviewed. No pertinent surgical history. No family history on file. Social History Tobacco Use Smoking Status Not on file Smokeless Tobacco Not on file Physical Exam - General appearance, mentation, extraocular movements, facial strength and movement, hearing, upper and lower extremity strength and tone, sensation to gross testing, coordination, and gait are normal or at baseline unless noted below. Physical Exam Constitutional: Appearance: Normal appearance. Genitourinary: Right Labia: No lesions. Left Labia: No lesions. Vaginal cuff intact. Mild vaginal atrophy present. Right Adnexa: not tender and no mass present. Left Adnexa: not tender and no mass present. Cervix is absent. Uterus is absent. Breasts: Right: Normal. No mass or nipple discharge. Left: Normal. No mass or nipple discharge. HENT: Head: Normocephalic and atraumatic. Cardiovascular: Rate and Rhythm: Normal rate and regular rhythm. Pulmonary: Breath sounds: Normal breath sounds. Abdominal: General: There is no distension. Palpations: Abdomen is soft. There is no mass. Tenderness: There is no abdominal tenderness. Musculoskeletal: General: Normal range of motion. Cervical back: Neck supple. Neurological: Mental Status: She is alert and oriented to person, place, and time. Skin: General: Skin is warm and dry. Psychiatric: Mood and Affect: Mood normal. Vulvitis Cystocele rectocele Hypopigmented bilateral clitoral silva Assessment/Plan ICD-10-CM 1. Encounter for gynecological examination Z01.419 2. Mass of breast, unspecified laterality N63.0 Bilateral diagnostic mammogram with tomosynthesis Bilateral breast US complete 3. Breast tenderness N64.4 Bilateral diagnostic mammogram with tomosynthesis Bilateral breast US complete 4. Hard stool R19.5 5. Vaginal burning N94.89 triamcinolone (Kenalog) 0.1 % cream fluconazole (Diflucan) 150 MG tablet 6. Urinary incontinence, unspecified type R32 7. Vaginitis and vulvovaginitis N76.0 GENITAL MYCOPLASMAS JOSE DAVID, SWAB NuSwab Vaginitis Plus (VG+) 8. Cervicitis and endocervicitis N72 GENITAL MYCOPLASMAS JOSE DAVID, SWAB NuSwab Vaginitis Plus (VG+) 9. Encounter for gynecological examination without abnormal finding Z01.419 IGP, APT HPV,RFX 16/18,45 10. Encounter for screening for cervical cancer Z12.4 IGP, APT HPV,RFX 16/18,45 Exam today Breast Imaging ordered for breast symptoms Pelvic organ prolapse (cystocele and rectocele) Assessment: Physical examination reveals the presence of cystocele and rectocele, indicating weakness of the bladder and rectal support structures. This condition is likely related to the patient's recent menopausal transition (menopause occurred at age 67, currently 69 years old) and subsequent decrease in estrogen levels. Patient reports feeling of fullness in the pelvic area and occasional spasms with short, sharp pain. Plan: - Discuss Rectocele treatment options includin. Conservative management (no intervention) 2. Pessary placement 3. Surgical repair - Defer decision on prolapse management until vulvovaginal pruritus is controlled - Educate patient on potential complications, including difficulty with bowel movements due to stool becoming trapped in the rectocele Vaginal dryness Assessment: Patient reports using [id number] pills for vaginal dryness, which were helpful but resulted in increased blood pressure. Plan: - Reassess vaginal dryness symptoms and treatment options after resolution of vulvovaginal pruritus - Consider alternative treatments for vaginal dryness that do not affect blood pressure Vulvar biopsy of symptoms continue Cultures and Triamcinolone/Flucoazole ordered Assessment & Plan Electronically signed by Iraida Carrillo MD documented in this encounter [facility] 09-05-2023 Note Chief Complaint consultation for positive [...] Tobacco Use:. Never (more content not included)... [facility] Comment on above: Result Comment: Elec tronically Signed By: YOHANA NARAYAN, Eron R\.br\Date and Time Signed: 09/05/23 15:51 EST 05-02-2022 Note PROCEDURE: XR KNEE L T 4V or > COMPARISON: None. HISTORY: Derangement of knee FINDINGS: BONES:No acute fracture or dislocation. Moderate tricompartmental osteoarthropathy most significant in the anterior compartment with joint space narrowing and marginal osteophyte formation. SOFT TISSUES:Negative. No visible soft tissue swelling. EFFUSION:None visible. OTHER: Negative. IMPRESSION: Moderate osteoarthritis Electronically authenticated by: COLLETTE CUMMINGS Date: 2022-05-02 20:56 [facility] Evaluation + Plan note No data available for this section General Surgery [facility] Evaluation note Diagnosis Women's annual routine gynecological examination documented in this encounter [employer] Phone: evaluation note* Diagnosis Encounter for routine gynecologic examination in Medicare patient documented in this encounter [email or web address] note* Diagnosis Bilateral lower abdominal pain Abdominal pain, other specified site documented in this encounter [email or web address] note* Diagnosis Acute vaginitis- Primary Unspecified vaginitis and vulvovaginitis documented in this encounter [facility] HealthcareEvaluation note* Diagnosis Encounter for gynecological examination Mass of breast, unspecified laterality Breast tenderness Mastodynia Hard stool Vaginal burning Other specified symptom associated with female genital organs Urinary incontinence, unspecified type Vaginitis and vulvovaginitis Encounter for gynecological examination without abnormal finding documented in this encounter [facility] HealthcareEvaluation note* Diagnosis Acute vaginitis- Primary Unspecified vaginitis and vulvovaginitis Urinary incontinence, unspecified type Rectocele Cystocele with rectocele Vaginitis and vulvovaginitis Postmenopausal atrophic vaginitis documented in this encounter [facility] HealthcareEvaluation note* Diagnosis Acute vaginitis- Primary Unspecified vaginitis and vulvovaginitis documented in this encounter [facility] HealthcareEvaluation note* Diagnosis Vaginitis and vulvovaginitis Cystocele with rectocele Urinary incontinence, unspecified type Postmenopausal atrophic vaginitis documented in this encounter [facility] Discharge instructions No data available for this section General Surgery [facility] Progress note No data available for this section General Surgery [place] Summary Purpose Family History No Family History Records FoundNo Family History Records Found No data available for this section No data available for this section No Family History Records FoundNo Family History Records FoundNo Family History Records Found Advance Directives No Advanced Directives Records FoundDocuments on File Type Date Recorded 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 Name: Maryam Solomon Admitted: 08/23/2018 [...] (more content not included)... Note MR#: [id number] [facility] Pt. Name: Maryam Solomon Admitted: 08/02/2019 Discharged: 08/03/2019 Date of : 1955 Physician: Krishna Sofia MD DISCHARGE SUMMARY PRINCIPAL DIAGNOSIS: Right shoulder degenerative joint disease. PROCEDURES PERFORMED: Right reverse total shoulder replacement with open biceps tenodesis. COMPLICATIONS: None. CONSULTS: Physical and Occupational Therapy. HOSPITAL COURSE: The patient is a 63-year-old female who [facility] with chief complaint of right [...] section and content) DATE CREATED AUTHOR 08/20/2019 [facility] DATE CREATED AUTHOR AUTHOR'S ORGANIZ ATION 09/28/2022 [facility] DATE CREATED AUTHOR AUTHOR'S ORGANIZ ATION 10/19/2023 [facility] DATE CREATED AUTHOR AUTHOR'S ORGANIZ ATION 05/27/2024 [facility] DATE CREATED AUTHOR AUTHOR'S ORGANIZ ATION 07/31/2025 [facility] Care Teams (unrecognized sec tion and content) Counseling Program Leader Relationship Specialty Start Date End Date Lala Watson MD [address] [place] [address] PCP - General Family Medicine 05/17/16 Counseling Program Leader Relationship Specialty Start Date End Date Lala Watson MD [address] [place] [address] PCP - General Family Medicine 05/17/16 Counseling Program Leader Relationship Specialty Start Date End Date Lala Watson MD [address] [place] [address] PCP - General Family Medicine 05/17/16 Counseling Program Leader Relationship Specialty Start Date End Date Lala Watson MD [address] [place] [address] PCP - General Family Medicine 07/28/25 Reason for Visit (unrecogniz ed section and content) Reason Comments Gynecologic Exam Patient present for yearly, patient denies any issues with breast. Patient has complaints of a prolapse bowel. 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 Reason Comments Pessary Check Patient present for pessary check and reswab for ureaplasma. Patient denies any new issues or concerns. 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 [facility] [employer] [facility]. provides no warranty or guarantee of the accuracy or completeness of information in this document.
== END 2025-08-11 13:40 | disposition home or self-care (01) ==
LOC: RAD 13:41
PROVIDERS: PCP Family Medicine; Visit Provider Podiatrist Foot & Ankle Surgery
DX: M25.571 Pain in right ankle and joints of right foot (principal); M77.31 Calcaneal spur, right foot; M21.611 Bunion of right foot
CPT/HCPCS: 73630

== ENCOUNTER 2025-08-29 09:21 | Outpatient (OUT) | payer MEDICARE, SELFPAY ==
--- OUTSIDE RECORDS SUMMARY | 2025-08-29 09:25 | XMS_ITS | CCD ---
Author Organization [facility] Care Team Providers Care Drilling Engineer Name Role Phone ELATTAR, OSAMA Admitting Unavailable ELATTAR, OSAMA Attending Unavailable LALA GONCALVES Primary Care Unavailable SELF, REFERRED Referring Unavailable [place] Procedure Practitioner Unavailab le KENNETHATTAR, OSAMA Surgeon Unavailable [place] Procedure Practitioner Unavailab AYANNA Back Surgeon Unavailable ADILENE LIU Referring Unavailable LALA GONCALVES Primary Care Unavailable ELATTAR OSAMA Attending Unavailable ELATTAR, OSAMA Admitting Unavailable VT Procedure Practitioner Unavailab le ELATTAR, OSAMA Surgeon Unavailable ELATTAR, OSAMA Admitting Unavailable KIMBERLYN, OSAMA Attending Unavailable LALA GONCALVES Referring Unavailable LALA GONCALVES Primary Care Unavailable VT Procedure Practitioner Unavailab KRISHNA Aguilar Surgeon Unavailable Lala Goncalves Primary Care Provider Lala Goncalves MD Primary Care Provider [phone] DR LALA GONCALVES Attending Unavailable DR LALA GONCALVES Primary Care Unavailable SACHA, DR REEVES Admitting Unavailable SACHA, DR REEVES Primary Care Unavailable SEA, DR ELIZABETH Hernandez Attending Unavailable SEA, DR ELIZABETH Hernandez Admitting Unavailable ZIEBJOYCE, DR PROSPER Huffman Consulting Unavailable SEA, DR ELIZABETH Hernandez Consulting Unavailable DR LALA GONCALVES Admitting Unavailable SACHA, DR REEVES Attending Unavailable SACHA, DR REEVES Consulting Unavailable DR LALA GONCALVES Primary Care Unavailable EMILIAON, DR COLLETTE Romero Consulting Unavailable Lala Goncalves Primary Care Physician Eron MULLER Attending Unavailable NILLEron R Attending Unavailable Lala Goncalves Referring Unavailable Eron MULLER R Attending Unavailable Eron UMLLER R Attending Unavailable ELIZABETH FLORES Attending Unavailable ELIZABETH FLORES Referring Unavailable LALA GONCALVES Primary Care Unavailable ELIZABETH FLORES Referring Unavailable LALA GONCALVES Primary Care Unavailable ELIZABETH FLORES Attending Unavailable ELIZABETH FLORES Referring Unavailable LALA GONCALVES Primary Care Unavailable Lala Goncalves MD Primary Care Provider [phone] Unavailable Primary Care Provider UnavailLala Zuluaga MD Primary Care Provider [phone] Lala Goncalves MD Primary Care Provider [phone] IRAIDA CARRILLO Attending Unavailable IRAIDA CARRILLO Attending Unavailable IRAIDA CARRILLO Attending Unavailable IRAIDA CARRILLO Referring Unavailable IRAIDA CARRILLO Referring Unavailable Medications Current Medications MedicationDrug Class(es)DatesSig (Normalized)Sig (Original)carvedilol 6.25 mg oral tablet (5 sources)alpha-Adrenergic Bryant, beta-Adrenergic BlockerStart: 08-01-2022 take 1 tablet by mouth twice dailycarvedilol (COREG) 6.25 MG tablet TAKE 1 TABLET BY MOUTH TWICE A DAY 0 08/01/2022 Activecholecalciferol 0.05 mg oral capsule (3 sources)Vitamin DStart: 76-01-0082jppj 1 capsule by mouth once daily Cholecalciferol (VITAMIN D3) 50 MCG (1999 UT) CAPS TAKE 1 CAPSULE BY MOUTH EVERY DAY 0 08/11/2022 Activeclotrimazole 10 mg/ml topical cream (1 source)Azole AntifungalStart: 05-14-2024 End: 71-45-8926vfyqiraumduz (LOTRIMIN AF) 1 % cream Indications: Vulvar irritation Apply topically 2 times daily. 1 each 1 05/14/2024 05/21/2024 Active cyclobenzaprine hydrochloride 10 mg oral tablet (6 sources)Muscle RelaxantStart: 73-95-7298xrcn 2 tablets by mouth at bedtime cyclobenzaprine 10 mg Tab 20 mg = 2 tab(s), Oral, Bedtime Start Date: 03/17/21 Status: OrderedStart: 17-02-8637mibnqgjzhxnxcjk (FLEXERIL) 10 MG tablet diclofenac sodium 75 mg delayed release oral tablet (4 sources)Nonsteroidal Anti-inflammatory DrugStart: 72-80-9918fbtu 1 tablet by mouth twice daily as neededdiclofenac (VOLTAREN) 75 MG EC tablet Take 1 tablet by mouth 2 times daily as needed 0 05/08/2024 ActiveStart: 23-24-4144qnix 1 tablet by mouth twice dailydiclofenac sodium 75 mg Oral EC Tab 75 mg = 1 tab(s), Oral, BID, Refills(s) 0 Start Date: 08/31/23 Status: Ordereddoxycycline hyclate 100 mg oral capsule (1 source)Tetracycline-class DrugStart: 08-04-2025 End: 82-60-0490qgppyauyijd (Vibramycin) 100 MG capsule Indications: Vaginitis and vulvovaginitis Take 1 capsule (100 mg) by mouth in the morning and 1 capsule (100 mg) before bedtime. Do all this for 10 days. Take with at least 8 ounces (large glass) of water, do not lie down for 30 minutes after. 20 capsule 08/0408/14/2025 Activeestradiol 0.004 mg vaginal insert (6 sources)EstrogenStart: 63-65-2910Hzmbyihsj (Imvexxy Maintenance Pack) 4 MCG insert Indications: Postmenopausal atrophic vaginitis Insert 1 suppository into the vagina 2 (two) times a week 8 each 2 07/10/2025 ActiveStart: 07-10-2025 Estradiol (Imvexxy Maintenance Pack) 4 MCG insert Indications: Postmenopausal atrophic vaginitis Insert 1 suppository into the vagina 2 (two) times a week 8 each 2 07/10/2025 ActiveStart: 98-07-9841Pcojwjoap (Imvexxy Maintenance Pack) 4 MCG insert Indications: Postmenopausal atrophic vaginitis Insert 1 suppository into the vagina 2 (two) times a week 8 each 2 07/10/2025 Activelevothyroxine sodium 0.025 mg oral tablet (2 sources)l-Thyroxinetake 1 tablet by mouth once dailylevothyroxine (SYNTHROID) 25 MCG tablet Take 1 tablet by mouth Daily Pt unsure of dosage 0 Active liothyronine sodium 0.005 mg oral tablet (2 sources)l-TriiodothyronineStart: 52-82-9945ecwupidjauzy (CYTOMEL) 5 MCG tablet TAKE 2 TABLETS BY MOT ON AN EMPTY STOMACH ONCE A DAY 0 03/07/2024 Activelisinopril 20 mg oral tablet (6 sources)Angiotensin Converting Enzyme InhibitorStart: 86-08-3673aooasdfuvz (PRINIVIL;ZESTRIL) 20 MG tablet 2 tablets 0 05/04/2016 Activelorcaserin hydrochloride 10 mg oral tablet (1 source)Serotonin-2c Receptor AgonistStart: 41-22-9405xupx 1 tablet by mouth twice dailyLorcaserin HCl 10 MG TABS Indications: Obesity (BMI 30.0-34.9) Take 1 tablet by mouth 2 times daily60 tablet 3 04/28/2015 Activepantoprazole 40 mg delayed release oral tablet (6 sources)Proton Pump InhibitorStart: 41-80-6062zjxxuvvwwxoo (PROTONIX) 40 MG tabletPARoxetine hydrochloride 40 mg oral tablet (6 sources)Serotonin Reuptake InhibitorStart: 62-33-4179OQSrrkhkjc (PAXIL) 40 MG tabletphentermine hydrochloride 37.5 mg oral tablet (1 source)Sympathomimetic Amine AnorecticStart: 08-22-2022 End: 28-53-8648cpyd 1 tablet by mouth once daily before breakfastphentermine (ADIPEX-P) 37.5 MG tablet Indications: Obesity (BMI 30.0-34.9) Take 1 tablet by mouth every morning (before breakfast) for 30 days. 30 tablet 0 08/22/2022 09/21/2022 Activesimvastatin 20 mg oral tablet (6 sources)HMG-CoA Reductase InhibitorStart: 90-61-7684jlrqiedqwby (ZOCOR) 20 MG tabletterconazole 4 mg/ml vaginal cream (2 sources)Azole AntifungalStart: 07-07-2025 End: 68-07-8655zlnfprkyajq (Terazol 7) 0.4 % vaginal cream Indications: Vulvovaginal Candidiasis Insert 1 applicator into the vagina at bedtime for 7 days 45 g 2 07/07/2025 07/14/2025 Activetriamcinolone acetonide 1 mg/ml topical cream (9 sources)CorticosteroidStart: 76-00-9739odmgljzwzedjv (Kenalog) 0.1 % cream Indications: Vaginal burning Apply topically in the morning andbefore bedtime. 30 g 2 06/16/2025 Activezolpidem tartrate 10 mg oral tablet (6 sources)gamma-Aminobutyric Acid-ergic AgonistStart: 33-54-6528rtdocvxl (AMBIEN) 10 MG tablet Completed/Discontinued Medications MedicationDrug Class(es)DatesSig (Normalized)Sig (Original)azithromycin 500 mg oral tablet (4 sources)Macrolide AntimicrobialStart: 07-18-2025 End: 32-22-6721skro 1 tablet by mouth once dailyazithromycin (Zithromax) 500 MG tablet Indications: Acute vaginitis Take 1 tablet (500 mg) by mouthDaily for 10 days 10 tablet 07/18/2025 07/28/2025 ExpiredStart: 06-20-2025 End: 28-57-9559sszk 1 tablet by mouth once dailyazithromycin (Zithromax) 500 MG tablet Indications: Acute vaginitis Take 1 tablet (500 mg) by mouthDaily for 10 days 10 tablet 1 06/20/2025 06/30/2025 Activefluconazole 150 mg oral tablet (2 sources)Azole AntifungalStart: 06-16-2025 End: 15-58-1638drnq 1 tablet by mouth oncefluconazole (Diflucan) 150 MG tablet Indications: Vaginal burning Take 1 tablet (150 mg) by mouth 1(one) time for 1 dose 5 tablet 06/16/2025 06/16/2025 Problems Active Problems Problem ClassificationProblemDateDocumented DateEpisodic/ChronicAbdominal hernia (2 sources)Hiatal duvrbp07-29-9820XoadvxkvTynztdgak pain (3 sources)Right lower quadrant pain; Translations: [Left lower quadrant pain] Onset: 775392-24-4252TwjrzdybQlknsdbe reactions (2 sources)Pressure cfdvehqjs20-17-1086GjwzgeizZvuc and rectal conditions (1 source)Rectal polyp; Translations: [Rectal polyp]Onset: 55-41-2056Mytrnopz Anxiety disorders (2 sources)Lxojibx76-98-0135NaypbxaYgchwygi mellitus with complications (1 source)Type 2 diabetes mellitus with hyperglycemia; Translations: [TYPE 2 DM W/HYPERGLYCEMIA]Onset: 54-09-2065VbqtirpEpfdhwfr mellitus without complication (2 sources)Type 2 diabetes dcdvzlky73-02-0078LgdnjhfZbmizcffn of lipid metabolism (3 sources)Hyperlipidemia, unspecified; Translations: [Hyperlipidemia]Onset: 143785-03-4698QvhvrphGfpjosepnnhxnc and diverticulitis (2 sources)Diverticula of intestine; Translations: [Diverticulosis of large intestine without perforation or abscess without bleeding]Onset: 10-10-2023 ChronicEssential hypertension (2 sources)Hypertensive txlxonlh70-35-0377PmdfdmcIqdvevvpgxdtm symptoms and ill- defined conditions (6 sources)Urinary incontinence; Translations: [Unspecified urinary incontinence]22-59-3551QbomkbnUamk and other crystal arthropathies (3 sources)Gout, unspecified; Translations: [Gout]Onset: ChronicInflammatory diseases of female pelvic organs (10 sources)Acute vaginitis; Translations: [Acute vaginitis]31-26-8335Nnbwclss Joint disorders and dislocations; trauma-related (4 sources)Unspecified internal derangement of unspecified knee; Translations: [UNS INTERNAL DERANGEMENT UNS KNEE]Onset: 82-47-5004PseweqoTvjspwiber disorders (4 sources)Atrophic vaginitis; Translations: [Postmenopausal atrophic vaginitis] 22-10-2399VzymtszHbkj disorders (2 sources)Depressive uhgrwwub33-00-5671OvzqjabMfdaisxqfsem breast conditions (2 sources)Fibrocystic disease of irkhnx58-21-6367WwxnydkDiglkhbkluml breast conditions (4 sources)Breast lump; Translations: [Unspecified lump in unspecified breast] 24-14-0318HyjbcopoGrahcgfreea chest pain (2 sources)Chest xswd00-96-8521PplcqsyiRmubratrgda deficiencies (1 source)Vitamin D deficiency, unspecified; Translations: [VITAMIN D DEFICIENCY UNSPECIFIED]Onset: 76-59-9566ZsggfrjUsnxetbbqcmxso (4 sources)Degenerative joint disease of shoulder region; Translations: [Osteoarthritis]84-80-8059GkejrbcDbxxh and unspecified benign neoplasm (1 source)Hyperplastic polyp of large vpcuvxutt07-95-0156OgissuoyLnwvr connective tissue disease (2 sources)Achilles kpnhfwrakc15-13-1321AqgdalliPrnbw connective tissue disease (2 sources)Muscle aklx04-39-1426NepaqsqmGmehs connective tissue disease (2 sources)Plantar cvjjiezxe25-13-1694CnbawjhlStscs female genital disorders (2 sources)Burning sensation of vagina; Translations: [Other specified conditions associated with female genital organs and menstrual cycle]06-16-2025 EpisodicOther gastrointestinal disorders (2 sources)Irritable bowel -63-2073RxawvckPwlmt gastrointestinal disorders (1 source)Abnormal feces; Translations: [Other fecal abnormalities]Onset: 51-29-2257DlpmhieiLmfha gastrointestinal disorders (2 sources)Hard stool; Translations: [Other fecal abnormalities]06-16-2025 EpisodicOther liver diseases (2 sources)Elevated liver enzymes nfhej33-29-3140IkbmthhrYkehp lower respiratory disease (2 sources)Xhgxyiu90-47-2331MpeqhgakWtwrp nervous system disorders (2 sources)Peripheral nerve -01-3098InyklpmYchcp non-traumatic joint disorders (2 sources)Hip kjbz48-76-9656YlzckyvgSjoqy non-traumatic joint disorders (2 sources)Joint mtml02-87-0133VdvlnlccWoxzz non-traumatic joint disorders (2 sources)Pathological dislocation of the shoulder mullo40-25-4395ImavxahvQbpaa nutritional; endocrine; and metabolic disorders (2 sources)Body mass index 30+ - ugdcppe84-58-2281NraspkzDmmdo nutritional; endocrine; and metabolic disorders (2 sources)Miszodk32-02-8727ObancbfTqyvk screening for suspected conditions (not mental disorders or infectious disease) (8 sources)Encounter for screening mammogram for malignant neoplasm of breast; Translations: [Encounter for screening for malignant neoplasm of rectum]Onset: 44-37-3230MlqndsyhDtkitcsr of female genital organs (6 sources)Disorder of rectum; Translations: [Rectocele]08-68-7577Xtwwtae Residual codes; unclassified (1 source)Family history of malignant neoplasm of breast; Translations: [FAMILY HX MALIG NEOPLASM OF BREAST]Onset: 88-95-1904RffcuiykJvchvmcg codes; unclassified (1 source)Family history of malignant neoplasm of trachea, bronchus and lung; Translations: [FAM HX MALIG NEOPLSM TRACH BRON LNG]Onset: 89-01-3345Dginmpld Residual codes; unclassified (1 source)Family history of malignant neoplasm of ovary; Translations: [FAM HX MALIGNANT NEOPLASM OVARY]Onset: 72-53-1334GoflisekHxgrdhui codes; unclassified (2 sources)Fpykvzlk62-34-2132FkrowpfwMzhhyihkksw; intervertebral disc disorders; other back problems (2 sources)Low back ruoy76-41-6850ZnlxiwphFfshjhlsfjvq (3 sources)Patient encounter status; Translations: [Encounter for well woman exam with routine gynecological exam]03-22-2021 Past or Other Problems Problem ClassificationProblemDateDocumented DateEpisodic/ChronicDeficiency and other anemia (1 source)Anemia, unspecified; Translations: [ANEMIA UNSPECIFIED]Onset: 00-11-0762AzwjgwmpVtocfpsl mellitus without complication (1 source)Other abnormal glucose; Translations: [OTHER ABNORMAL GLUCOSE]Onset: 76-64-9471FivbjhafNhqiefps of upper limb (4 sources)Closed fracture of shaft of humerus; Translations: [Closed fracture of shoulder]Onset: 988681-98-1057BylkxijiNsoyz connective tissue disease (1 source)Achilles tendinitis, unspecified leg; Translations: [ACHILLES TENDINITIS UNSPECIFIED LEG]Onset: 52-00-5112XmqfrgppOsjgz lower respiratory disease (1 source)Dyspnea, unspecified; Translations: [DYSPNEA UNSPECIFIED]Onset: 90-75-1305EfvwfmmjLyrgxkqf codes; unclassified (1 source)Insomnia, unspecified; Translations: [INSOMNIA UNSPECIFIED]Onset: 89-37-9787EspaumjoLwphwqcm codes; unclassified (2 sources)Family history of breast cancer; Translations: [Family history of malignant neoplasm of breast]Onset: 354399-12-8126JtobodfzJmmbtqecddle (2 sources)Rupture of rotator cuff of ydhahruj44-42-8515 Results Test NameValueInterpretationReference RangeFacilityBI MAMMOGRAM DIAGNOSTIC TOMOSYNTHESIS BILATERALon 98-33-7855RE MAMMOGRAM DIAGNOSTIC TOMOSYNTHESIS BILATERALThis is a summary report. The complete report is available in the patient's medical record. If you cannot access the medical record, please contact the sending organization for a detailed fax or copy. EXAMINATION: BI MAMMOGRAM DIAGNOSTIC TOMOSYNTHESIS BILATERAL CLINICAL HISTORY: Breast tenderness and lumps TECHNIQUE: Diagnostic digital mammogram study of both breasts was performed with 2D and 3D tomosynthesis imaging. Study was compared to the screening mammogram study of the breasts dated 10/21/2024 and ultrasound study of the breasts dated 08/12/2025. FINDINGS: Standard views of the breasts as well as coned-down compression views on the left and true lateral view of each breast were obtained. Skin marker is noted on the left medially, anteriorly in the area of clinically palpable lump. There is no evidence of interval dominant spiculated mass, grouped microcalcifications or skin thickening which would be suggestive of malignancy. No obvious focal abnormality in the area of skin marker/clinically palpable lump. A few benign-appearing calcifications are seen bilaterally. Small benign- appearing asymmetric density is noted on the left superolaterally, posteriorly similar to the prior study. Ultrasound study demonstrates a finding which may be artifactually created or a prominent lymph node with prominent fatty hilum not felt to be acutely significant. Based on the ultrasound finding, follow-up ultrasound study of the left breast in the axillary region is recommended in 6 months to assess stability. IMPRESSION: No specific evidence of malignancy seen in either breast. Artifact versus prominent lymph node with prominent fatty hilum in the left axillary region on ultrasound not felt to be acutely significant. Follow-up ultrasound study of the left breast in the axillary region is recommended in 6 months to assess stability. BI-RADS recommendation for this study will be based on the ultrasound finding. BIRADS 3 - Probably Benign Findings DENSITY: The breasts are almost entirely fatty. FOLLOW-UP: Breast Ultrasound in 6 Months Board Certified Radiologists. Accredited by the ACR and FDA. MAMMOGRAPHY IS VERY IMPORTANT TO YOUR HEALTH. THE [employer] GUIDELINES RECOMMEND THATWOMEN 40 YEARS OF AGE AND OLDER SHOULD HAVE A MAMMOGRAM EVERY YEAR. A REMINDER LETTER WILL BE SENT AT THE APPROPRIATE TIME. ELECTRONICALLY SIGNED BY: Bonifacio Marks M.D.NormalNot AvailableBI US BREAST COMPLETE BILATERALon 22-16-5402YH US BREAST COMPLETE BILATERALThis is a summary report. The complete report is available in the patient's medical record. If you cannot access the medical record, please contact the sending organization for a detailed fax or copy. Examination: BI US BREAST COMPLETE BILATERAL Reason for Study: Breast tenderness and lumps Comparison: Diagnostic mammogram study of the breasts dated 08/12/2025. Technique: Complete bilateral breast ultrasound study was performed to include all 4 quadrants, subareolar and axillary regions of the breasts. Findings: No obvious solid vascular mass suggest neoplasm seen on either side. No obvious focal cystic area seen on either side. No obvious abnormal calcifications or vascularity. No obvious ductal dilatation. No obvious focal abnormality in the area of clinically palpable lump at the 9 o'clock position on the left. In the left axillary region somewhat ill-defined area of mild increased echogenicity with possible surrounding decreased echogenicity. The finding may be artifactually created, possibility of a prominent lymph node with prominent fatty hilum measuring 3.7 x 2.6 x 2.1 cm is not excluded. The findingis not felt to be acutely significant. No obvious correlating prominent fat filled lymph node seen on the mammogram study. Follow-up ultrasound study of the left breast in the axillary region in 6 months is recommended to assess stability. IMPRESSION: Impression: Bilateral breast ultrasound study fails to convincingly demonstrate evidence of neoplasm. Artifact versus prominent lymph node with prominent fatty hilum in the left axillary region. No obvious correlating finding on the mammogram study. The finding is not felt to be acutely significant. Follow-up ultrasound study of the left breast in the axillary region in 6 months is recommended to assess stability. BI-RADS 3 ELECTRONICALLY SIGNED BY: Bonifacio Marks M.D.NormalNot AvailableLaboratory - Microbiology and Antimicrobial susceptibilityon 06-20-2025. vaginae DNA JOSE DAVID+probe Ql (Vag fld)Low - 0ScoreNOMS HealthcareBacterial vaginosis associated bacterium 2 DNA JOSE DAVID+probe Ql (Vag fld)Low - 0ScoreNOMS HealthcareC. albicans DNA JOSE DAVID+probe Ql (Vag fld)NegativeNegativeNOMS HealthcareC. glabrata DNA JOSE DAVID+probe Ql (Vag fld)NegativeNegativeNOMS HealthcareC. trachomatis DNA JOSE DAVID+probe Ql (Unsp spec)NegativeNegativeNOMS HealthcareM. genitalium DNA JOSE DAVID+probe Ql (Unsp spec) NegativeNegativeNOMS HealthcareM. hominis DNA JOSE DAVID+probe Ql (Unsp spec)Negative NegativeNOMS HealthcareMegasphaera sp type 1 DNA JOSE DAVID+probe Ql (Vag fld)Low - 0 ScoreNOMS HealthcareComment on above:Calculate total score by adding the 3 individual bacterial vaginosis (BV) marker scores together. Total score is interpreted as follows: Total score 0-1: Indicates the absence of BV. Total score 2: Indeterminate for BV. Additional clinical data should be evaluated to establish a diagnosis. Total score 3-6: Indicates the presence of BV. N. gonorrhoeae DNA JOSE DAVID+probe Ql (Vag fld)NegativeNegativeNortheast Regional Medical CenterT. vaginalis DNA JOSE DAVID+probe Ql (Vag fld)NegativeNegativeNOChildren's Mercy HospitalUreaplasma sp DNA JOSE DAVID+probe Ql (Unsp spec)PositiveAbnormalNegativeNortheast Regional Medical CenterNo Panel Informationon 71-80-8299Ezdbhfauvnxudk and review of laboratory resultsAbnormal [facility] HealthcareTest(s) 946858-Ymciqhithj hominis JOSE DAVID; 624503-Wydusussjq spp JOSE DAVID was developed and its performance characteristics determined [facility]. It has not been cleared or approved by the Food and Drug Administration. Performed at: - [address] [id number] Figurine Maker: Flip Barros MD, Phone: [phone]-Presbyterian Lower Manhattan HospitalTest(s) 243196- Atopobium vaginae; 736385- BVAB 2; 614001- Megasphaera 1 was developed and its performance characteristics determined [facility]. It has not been cleared or approved by the Food and Drug Administration. Test(s) 898231-Coqkqps albicans, JOSE DAVID; 612263-Llnaplo glabrata, JOSE DAVID was developed and its performance characteristics determined by [facility]. It has not been cleared or approved by the Food and Drug Administration. Performed at: - [address] [id number] Figurine Maker: Flip Barros MD, Phone: [phone]-Presbyterian Lower Manhattan Hospital Laboratory - Cytologyon 93-92-4072Uzgdnofmvs Cyto stain Nom (Cvx/Vag) [ID] CommentNortheast Regional Medical CenterComment on above:Roula Dupree, First Aid Trainer (ASCP)Cytology report Cyto stain Doc (Cvx/Vag)CommentNortheast Regional Medical CenterComment on above:NEGATIVE FOR INTRAEPITHELIAL LESION OR MALIGNANCY.Cytology report Cyto stain.thin prep Doc (Cvx/Vag)CommentNortheast Regional Medical CenterComment on above:This liquid based ThinPrep(R) pap test was screened with the use of an image guided system. Statement of adequacy Cyto stain (Cvx/Vag) [Interp]CommentNortheast Regional Medical CenterComment on above:Satisfactory for evaluation. No endocervical component is identified. Laboratory - Microbiology and Antimicrobial susceptibilityon 32-86-5143NDB 16+18+31+33+35+39+45+51+52+56+58+59+66+68 DNA Probe+sig amp Ql (Cvx)Negative NegativeNONM HealthcareComment on above:This nucleic acid amplification test detects fourteen high-risk HPV types (16,18,31,33,35,39,45,51,52,56,58,59,66,68) without differentiation. Microscopic observation Other stain Nom (Unsp spec).[facility] HealthcareLaboratory - Miscellaneous testson 01-63-7572Ozyuted comment (Unsp spec) [Interp]CommentNONM HealthcareComment on above:The Pap smear is a screening test designed to aid in the detection of premalignant and malignant conditions of the uterine cervix. It is not a diagnostic procedure and should not be used as the sole means of detecting cervical cancer. Both false-positive and false-negative reports do occur. No Panel Informationon 81-05-1571Eysfpkxoq ICD code [Identifier]CommentNOChildren's Mercy HospitalComment on above:Z01.419 Z12.4 Performed at: - [facility] Cyto Histo [address] [place] [id number] Figurine Maker: Mazin Mcconnell MD, Phone: [phone] Performed at: - [address] [id number] Figurine Maker: Sophy Dave MD, Phone: [phone] Performed at: 03 - [address] [id number] Figurine Maker: Sophy Dave MD, Phone: [phone] Specimen Comment: No. of containers..01 ThinPrep VialLABShriners Hospitals for Children - GreenvilleCT ABDOMEN PELVIS W IV CONTRASTon [id number] ABDOMEN PELVIS W IV CONTRAST EXAMINATION: CT [...] is unremarkable. The uterus is surgically absent. PERITONEUM/MESENTERY/BOWEL: The stomach is unremarkable. There is no bowel obstruction. There is no bowel wall thickening. There is diverticulosis without evidence of diverticulitis. BONES/SOFT TISSUES: There is no acute osseous or soft tissue abnormality. IMPRESSION: 1. No acute intra-abdominal or pelvic process. 2. Diverticulosis without evidence of diverticulitis. Interpreted by: Ryan Hoyt MD Signed by: Ryan Hoyt MD 05/24/24 Final resultNormalMercy Bridgeport Hospital with Auto Differentialon 05-23-2024 Basophils (Bld) [#/Vol]0.05 10*3/uLBON SECOURS MERCY HEALTHBasophils/100 WBC (Bld)1 %0 - 2 %[facility] HEALTHEosinophils (Bld) [#/Vol]0.11 10*3/uLBON SECOURS MERCY HEALTHEosinophils/100 WBC (Bld)1 %1 - 4 %[facility] Erythrocyte distribution width (RBC) [Ratio]12.3 %11.8 - 14.4 %[facility] HEALTHHematocrit (Bld) [Volume fraction]36.4 %36.3 - 47.1 %[facility] HEALTHHemoglobin (Bld) [Mass/Vol]11.8 g/dLLow11.9 - 15.1 g/dLBON SECOURS MERCY HEALTHImmature granulocytes (Bld) [#/Vol]0.03 10*3/uLBON [facility] Immature granulocytes/100 WBC (Bld)0 %0BON [facility] HOSPITALInterpretation and review of laboratory resultsAbnormalBON MERCY [facility]ALTH ST[facility] JO[facility] WARREN HOSPITALLymphocytes/100 WBC (Bld)28 %24 - 43 %[facility] W[facility] HOSPITALLymphocytes/100 WBC (Bld)2.73 %[facility]ITALH (RBC) [Entitic mass]31.9 pg25.2 - 33.5 pgBON TRINITY [facility]ALTH SYSTEMHC (RBC) [Mass/Vol]32.4 g/dL28.4 - 34.8 g/dLBON SECBARBERTON CITIZENS HOSPITALV (RBC) [Entitic vol]98.4 fL82.6 - 102.9 fLBUCHANAN GENERAL [facility]PITAL Monocytes/100 WBC (Bld)6 %3 - 12 %[facility]ITALMonocytes/100 WBC (Bld)0.62 %[facility] HOSPITALNeutrophils/100 WBC (Bld)64 %36 - 65 %[facility]OSPITALNucleated RBC/100 WBC (Bld) [Ratio]0.0 %0.0 per [address] [facility] WARR[facility] HOSPITALPlatelet mean volume (Bld) [Entitic vol]8.2 fL8.1 - 13.5 fL [facility] HOSPITALPlatelets (Bld) [#/Vol]323 10*3/uLBUCHANAN GENERAL HOSPITALRBC (Bld) [#/Vol]3.70 10*6/uLLow3.95 - 5.11 m/uLBUCHANAN GENERAL [facility] Segmented neutrophils/100 WBC (Bld)6.29 %[facility] HOSPITALWBC other (Bld) [#/Vol]9.8BON SECMERCYHEALTH WALWORTH [facility]OSPITAL AND MEDICAL CENTERCBC with Diffon [id number]. Basophil0.05 k/uLNormal0.00-0.20MerCharlotte Hungerford HospitalComment on above:Performed By: #### CP, CDP #### [facility] [address] [place] [address] Figurine Maker: Sangeeta Butler.Imm.Granulocyte0.03 k/uLNormal0.00-0.30MerSelect Medical Specialty Hospital - Akron HospitalComment on above:Performed By: #### CP, CDP #### [address] [place], [place] [address] Figurine Maker: Sangeeta Butler.Neutrophil (Seg)6.29 k/uLNormal1.50-8.10[facility] HospitalComment on above:Performed By: #### CP, CDP #### [address] [place], [place] [address] Figurine Maker: Collette Zhang MDBasophils/100 WBC (Bld)1 %Normal0-2MKettering Health Preble HospitalComment on above:Performed By: #### CP, CDP #### [address] [place] [address] Figurine Maker: Collette Zhang MDEosinophils (Bld) [#/Vol]0.11 10*3/uLNormal 0.00-0.44[facility] Health HospitalComment on above:Performed By: #### CP, CDP #### [address] [place], [place] [address] Figurine Maker: Collette Zhang MDEosinophils/100 WBC (Bld)1 %Normal1-4[facility] HospitalComment on above:Performed By: #### CP, CDP #### [address] [place], [place] [address] Figurine Maker: Collette Zhang MDErythrocyte distribution width (RBC) [Ratio]12.3 % Rjvucf11.8-14.4[facility] HospitalComment on above:Performed By: #### CP, CDP #### [address] [place], [facility] Figurine Maker: Collette Zhang MDHematocrit (Bld) [Volume fraction]36.4 %Normal 36.3-47.1MercOhio State Harding Hospital HospitalComment on above:Performed By: #### CP, CDP #### [address] [place], [place] [address] Figurine Maker: Collette Zhang MDHemoglobin (Bld) [Mass/Vol]11.8 g/dLLow11.9-15.1 [facility] HospitalComment on above:Performed By: #### CP, CDP #### [address] [place], [place] [address] Figurine Maker: Collette Zhang MDImmature granulocytes/100 WBC (Bld)0 %Omwruj5RgefeSelect Medical Specialty Hospital - AkronComment on above:Performed By: #### CP, CDP #### [address] [place], [facility]83 Figurine Maker: Collette Zhang MDLymphocytes (Bld) [#/Vol]2.73 10*3/uLNormal 1.10-3.70[facility] HospitalComment on above:Performed By: #### CP, CDP #### [address] [place], [place] [address] Figurine Maker: Collette Zhang MDLymphocytes/100 WBC (Bld)28 %Zrucvs12-56TvpywSelect Medical Specialty Hospital - AkronComment on above:Performed By: #### CP, CDP #### [address] [place], [place] [address] Figurine Maker: VIRGIE ButlerCH (RBC) [Entitic mass]31.9 zaHpukpm99.2-33.5 [facility] HospitalComment on above:Performed By: #### CP, CDP #### [address] [place], [place] [id number] Figurine Maker: VIRGIE ButlerCHC (RBC) [Mass/Vol]32.4 g/xHJqgdpt30.4-34.8[facility] HospitalComment on above:Performed By: #### CP, CDP #### [address] [place] [address] Figurine Maker: VIRGIE ButlerCV (RBC) [Entitic vol]98.4 vPRgvfag66.6-102.9 [facility] HospitalComment on above:Performed By: #### CP, CDP #### [address] [place], [facility]83 Figurine Maker: VIRGIE Butleronocytes (Bld) [#/Vol]0.62 10*3/uLNormal0.10-1.20 [facility] HospitalComment on above:Performed By: #### CP, CDP #### [address] [place], [place] [address] Figurine Maker: VIRGIE Butleronocytes/100 WBC (Bld)6 %Normal3-12Prem[facility] HospitalComment on above:Performed By: #### CP, CDP #### [address] [place], [facility]83 Figurine Maker: Sabrina Butlerutrophil (Seg)64 %Lwwlms87-47Seivd [facility]in HospitalComment on above:Performed By: #### CP, CDP #### [address] [place], [place] [address] Figurine Maker: Collette Zhang MDNRBC Automated0.0 per 100 WBCNormal0.0Prem[facility] Health HospitalComment on above:Performed By: #### CP, CDP #### [address] [place] [address] Figurine Maker: MIRNA Butlerlatelet mean volume (Bld) [Entitic vol]8.2 fL Normal8.1-13.5[facility] HospitalComment on above:Performed By: #### CP, CDP #### [address] [place], [place] 1285283 Figurine Maker: Earline Butler ([facility]) [#/Vol]323 10*3/iKNfyoxn737-856 [facility] HospitalComment on above:Performed By: #### CP, CDP #### [address] [place], [place] 1915283 Figurine Maker: SHARMAINE Butler ([facility]) [#/Vol]3.70 10*6/uLLow3.95-5.11Adena [facility] Centercy [facility] HospitalComment on above:Performed By: #### CP, CDP #### [address] [place], [place] [address] ([address] Figurine Maker: KORINA Butler ([facility]) [#/Vol]9.8 10*3/uLNormal3.5-11.3MKettering Health Preble HospitalComment on above:Performed By: #### CP, CDP #### [address] [place], [place] [address]83 Figurine Maker: MAGNOLIA Butleromp Metabolic Profon 66-27-8160Wgyxpwj [Mass/Vol] 4.4 g/dLNormal3.5-5.2[facility] HospitalComment on above:Performed By: #### CP, CDP #### [address] [place], [place] 47[address]83 Figurine Maker: Collette Zhang MDAlbumin/Glob Ratio1.7Xylgjg7.0-2.5Prem[facility] Health HospitalComment on above:Performed By: #### CP, CDP #### [address] [place], [place] [address] Figurine Maker: Kristyn Butlerkaline Phos95 U/GBbefpv08-782Xskgn [facility]in HospitalComment on above:Performed By: #### CP, CDP #### [address] [place] [address] Figurine Maker: Collette Zhang MDALT [Catalytic activity/Vol]17 U/LNormal5-33Select [facility] Hospital - AkronComment on above:Performed By: #### CP, CDP #### [address] [place], [place] 2985683 Figurine Maker: Collette Zhang MDAnion gap [Moles/Vol]10 mmol/LNormal9-17MerSelect Medical Specialty Hospital - [facility] HospitalComment on above:Performed By: #### CP, CDP #### [address] [place] [address] Figurine Maker: Collette Zhang MDAST [Catalytic activity/Vol]18 U/LNormal<32MerSelect Medical Specialty Hospital - [facility]ron HospitalComment on above:Performed By: #### CP, CDP #### [address] [place], [place] 74[address] Figurine Maker: Collette Zhang MDBilirubin [Mass/Vol]0.5 mg/dLNormal0.3-1.2[facility] HospitalComment on above:Performed By: #### CP, CDP #### [address] [place], [place] 4036783 Figurine Maker: Collette Zhang MDBUN/CRE Yavxr24Fuhwpk4-92Mmzxo [facility] Comment on above:Performed By: #### CP, CDP #### [facility] [address] [place] [address] [place] [address] Figurine Maker: MAGNOLIA Butleralcium [Mass/Vol]9.5 mg/dLNormal8.6-10.4MerCharlotte Hungerford HospitalComment on above:Performed By: #### CP, CDP #### [address] [place], [place] 5955383 Figurine Maker: MAGNOLIA Butlerhloride [Moles/Vol]97 mmol/KYjq89-454Auqnm [facility] HospitalComment on above:Performed By: #### CP, CDP #### [address] [place] [address] Figurine Maker: MAGNOLIA ButlerO2 [Moles/Vol]28 mmol/UBhtiwm90-45NjdtmSelect Medical Specialty Hospital - AkronComment on above:Performed By: #### CP, CDP #### [address] [place] [address] Figurine Maker: MAGNOLIA Butlerreatinine [Mass/Vol]0.9 mg/dLNormal0.5-0.9[facility] Hospital - AkronComment on above:Performed By: #### ANASTACIA, CDP #### [address] [place] [address] Figurine Maker: Collette Zhang MDGFR/1.73 sq M.predicted among non-blacks MDRD (S/P/Bld) [Vol rate/Area]70 mL/min/{1.73_m2}Normal>60[facility] Comment on above:Result Comment: These results are not intended for [...] or following therapy that affects renal tubular secretion.Performed By: #### ANASTACIA, CDP #### [address] [place] [address] Figurine Maker: Collette Zhang MDGlucose [Mass/Vol]105 mg/mYIbyy07-04CsiucProMedica Fostoria Community HospitalComment on above:Performed By: #### ANASTACIA, CDP #### [address] [place] [address] Figurine Maker: MIRNA Butlerotassium [Moles/Vol]4.8 mmol/LNormal3.7-5.3[facility] HospitalComment on above:Performed By: #### CP, CDP #### [facility] [address] [place] [address] Dr[address] [place], [place] 6432183 Figurine Maker: Collette Zhang MDProtein [Mass/Vol]7.2 g/dLNormal6.4-8.3MKettering Health Preble HospitalComment on above:Performed By: #### CP, CDP #### [address] [place], [place] 1180983 Figurine Maker: SUNITHA Butlerodium [Moles/Vol]135 mmol/EUoqkxx879-643VypzzSelect Medical Specialty Hospital - AkronComment on above:Performed By: #### CP, CDP #### [address] [place], [place] 3951583 Figurine Maker: Collette Zhang MDUrea nitrogen [Mass/Vol]16 mg/dLNormal8-23Select [facility] Hospital - AkronComment on above:Performed By: #### CP, CDP #### [address] [place], [place] [address]183 Figurine Maker: MAGNOLIA Butleromprehensive Metabolic Panelon 11-50-8108Izgjxym [Mass/Vol]4.4 g/dL3.5 - 5.2 g/dLBON MER[facility] WARREN HOSPITALAlbumin/Globulin [Mass ratio]1.6 {ratio}1.0 - 2.5BON [facility] WARR[facility] HOSPITALALP [Catalytic activity/Vol]95 U/L35 - 104 U/LBON [facility] W[facility] HOSPITALALT [Catalytic activity/Vol]17 U/L5 - 33 U/LBON [facility] WARR[facility] HOSPITALAnion gap [Moles/Vol]10 mmol/L9 - 17 mmol/LBON [facility] W[facility] HOSPITALAST [Catalytic activity/Vol]18 U/LNINF - 32 U/LBON [facility] WARR[facility] HOSPITALBilirubin [Mass/Vol]0.5 mg/dL0.3 - 1.2 mg/dLBON [facility] Calcium [Mass/Vol]9.5 mg/dL8.6 - 10.4 mg/dLBON MER[facility] WARR[facility] HOSPITALChloride [Moles/Vol]97 mmol/LLow98 - 107 mmol/LBON SECOURS MERCY HOSPITALCO2 [Moles/Vol]28 mmol/L20 - 31 mmol/LBON SECSELECT MEDICAL SPECIALTY HOSPITAL - TRUMBULLCreatinine [Mass/Vol]0.9 mg/dL0.5 - 0.9 mg/dLBON SECSELECT MEDICAL SPECIALTY HOSPITAL - TRUMBULLEst, Glom Filt Rate70- PINFBON MERCY HEALTH ST. JOSEPH WARREN HOSPITALComment on above: These results are not intended [...] therapy that affects renal tubular secretion. Glucose [Mass/Vol]105 mg/pAFybb74 - 99 mg/dLBON [facility] Interpretation and review of laboratory resultsAbnormalBON [facility] Potassium [Moles/Vol]4.8 mmol/L3.7 - 5.3 mmol/LBON [facility] JO[facility] W[facility] HOSPITALProtein [Mass/Vol]7.2 g/dL6.4 - 8.3 g/dLBON MERCY HEALTH [facility]. JOSEPH WARREN HOSPITALSodium [Moles/Vol]135 mmol/L135 - 144 mmol/LBON [facility] WARREN HOSPITALUrea nitrogen [Mass/Vol]16 mg/dL8 - 23 mg/dLBON MERCY HE[facility] ST[facility] JO[facility] WARREN HOSPITALUrea nitrogen/Creatinine [Mass ratio]18 mg/mg9 - 20BON [facility]OU[facility]– NORTHLANDMicroscopic Urinalysison 37-88-0827Gvjdmxin LM Ql (Urine sed)RARENoneBON MERCY HEALTH ST. JOSEPH WARREN HOSPITALEpithelial cells LM.HPF (Urine sed) [#/Area]0 TO 2BON SECOU[facility] MERCY HOSPITALRBC LM.HPF (Urine sed) [#/Area]0 TO 2BON SEC[facility] MERCY HOSPITALWBC LM.HPF (Urine sed) [#/Area]0 TO 2B[facility] SYSTEM– NORTHLANDUA w/Reflex Cultureon 28-08-0333Fsssjtcvg, SemiQt,UrNegativeNormalNEGMercy Mount Arlington HospitalComment on above:Performed By: #### UMICAO, UAX #### [facility] [address] [place], [place] [address]83 Figurine Maker: Meche Butler, UrineNegativeKettering Health Greene Memorial Comment on above:Performed By: #### UMICAO, UAX #### [facility] [address] [place], [place] [address]283 Figurine Maker: MAGNOLIA Butlerlarity (U)ClearNormalCLEARSelect Medical Specialty Hospital - [facility]ron Comment on above:Performed By: #### YUMIKOO, UAX #### [facility] [address] [place], [place] 8878[address] Figurine Maker: MAGNOLIA Butlerolor (U)YellowNormalYUniversity Hospitals Samar[facility] Comment on above:Performed By: #### CALLIE, UAX #### [facility] [address] [place], [place] 8009483 Figurine Maker: Collette Zhang MDGlucose Ql (U)NegativeNormalNEGPremier Health HospitalComment on above:Performed By: #### YUMIKOO, UAX #### [facility] [address] [place] [address] Dr. [place], [place] 0777883 Figurine Maker: Collette Zhang MDKetones Ql (U)NegativeNormalNEGPremier Health HospitalComment on above:Performed By: #### UMICAO, UAX #### [facility] [address] [place], [place] [address]83 Figurine Maker: Collette Zhang MDLeukocyte esterase Test strip Ql (U)NegativeNormal NEGMerCharlotte Hungerford HospitalComment on above:Performed By: #### UMICAO, UAX #### [facility] [address] [place], [place] 136[address]83 Figurine Maker: Rosa Elena Butlerite,UrNegativeKettering Health Greene Memorial Comment on above:Performed By: #### CALLIE, UAX #### [facility] [address] [place] [address] Dr. [place], [place] 0073083 Figurine Maker: MIRNA Butler,Ur6.4Wkepfo7.0-9.0[facility] Hospital - AkronComment on above:Performed By: #### CALLIE, UAX #### [facility] [address] [place] [address] Dr[address] [place], [place] [phone] Figurine Maker: MIRNA Butlerrotein Ql (U)NegativeNormalNEGSelect Medical Specialty Hospital - AkronComment on above:Performed By: #### CALLIE, UAX #### [facility] [address] [place] [address] Dr. [place], [place] 5402183 Figurine Maker: SUNITHA Butlerpec. [place],Ur1.040Bnffsn4.010-1.020[facility] Hospital - AkronComment on above:Performed By: #### CALLIE, UAX #### [facility] [address] [place] [address] Dr[address] [place], [place] 5730583 Figurine Maker: Collette Zhang MDUrobilinogen,UrNormalNormal0.0-1.0[facility] Hospital - AkronComment on above:Performed By: #### CALLIE, UAX #### [address] [place], [facility] Figurine Maker: Collette Zhang MDUrinalysis with Reflex to Cultureon 05-23-2024 Bilirubin Ql (U)NegativeNEGATIVEBON SECOURS [facility] HEALTHClarity (U)ClearClearB[facility] HEALTHColor (U)YellowYellowBON SECOURS MERCY HOSPITALGlucose Test strip (U) [Mass/Vol]NegativeNEGATIVE mg/dLBON [facility]OURS MERCY HOSPITALHemoglobin Auto test strip Ql (U)NegativeNEGATIVEBON [facility] HEALTHKetones (U) [Mass/Vol]NegativeNEGATIVE mg/dLBON [facility]RS MERCY HOSPITALLeukocyte esterase Test strip Ql (U)NegativeNEGATIVEBON [facility] HEALTHNitrite Ql (U)Negative NEGATIVEBON MER[facility] ST[facility] JO[facility] WARREN HOSPITALpH (U)6.0 [pH]5.0 - 9.0B[facility] Protein (U) [Mass/Vol]NegativeNEGATIVE mg/dLBON MER[facility] ST[facility] WARR[facility] HOSPITALSpecific gravity (U) [Rel density]1.0101.010 - 1.020BUCHA[facility]N GENERAL HOSPITALUrobilinogen Qn (U)Normal0.0 - 1.0 EU/dLBON MER[facility]. [facility] WARREN HOSPITALBON [facility] Urinalysis,Microon 99-25-7596BbhgaeccBLIBFhgyqhIBBZUcmhg [facility]iffin HospitalComment on above:Performed By: #### CALLIE UAX #### [facility] [address] [place] [address] Figurine Maker: Collette Zhang MDEpithelial cells LM Ql (Urine sed)0 TO 8Nriwmp7-78 [facility] - AkronComment on above:Performed By: #### CALLIE UAX #### [facility] [address] [place], [place] [address]83 Figurine Maker: Olayinka Butler RBC's0 TO 4Wyknac7-9ZvxxsProMedica Fostoria Community Hospital Comment on above:Performed By: #### CALLIE UAX #### [facility] [address] [place], [place] 000[address]83 Figurine Maker: Olayinka Butler WBC's0 TO 2Cqgsgy6-1PbcgxSelect Medical Specialty Hospital - [facility] Comment on above:Performed By: #### CALLIE UAX #### [facility] [address] [place], [place] [address]83 Figurine Maker: MAGNOLIA Butlerytology Reporton [id number] report Cyto stain.thin prep Doc (Cvx/Vag)(NOTE) Path Number: [id number] DIAGNOSIS Imaged ThinPrep Pap - Cervical (1 monolayer slide): Specimen Adequacy: Satisfactory for evaluation. -Endocervical/transformation zone component is absent. Descriptive Diagnosis: Negative for intraepithelial lesion or malignancy. Comments: Specimen was screened at [facility], [address] [place] [address] [employer] Screener: PT Electronically Signed Out Barbi Orly pt/05/20/2024 Source of Specimen: A: Imaged ThinPrep Pap - Cervical (1 monolayer slide) HPV Reflex?......................HPV if Abnormal Clinical History Hysterectomy Z01.[address] exam without abnormal findings Processing Lab: [address] [address] Interpretation performed at [facility], [address] [place] [address], [place] [address] This Pap Test has been evaluated with [...] result. GYNECOLOGIC CYTOLOGY REPORT Patient Name: MARYAM ADAM. [facility] Rec: [id number] [facility] ANATOMIC PATHOLOGY [address] [place] [address]. [place], [place] [address] [facility] HospitalAmbulatory Visit Summaryon [id number] Visit Summary ALOK ADAMAnel Bain :1955 Visit Date:10/10/2023 Ambulatory Visit Instructions Your Care Team Attending Physician - Eron MULLER MD Primary Care Physician - Lala Goncalves MD This Is Your Medications List carvedilol [...] you for choosing us for your care. [facility] Hospitalral [facility] Office/Clinic Noteon 53-31-3714Yarwivh Surgery Office/Clinic NoteChief Complaint colonoscopy follow up HPI Staff 13 [...] swallowing difficulties, no hearing loss, no ear infection(s),no nose bleeds. Cardiovascular: normal blood pressure, no [...] virus vaccine, inactivated 09/21/2022 Recorded SARS-CoV-2 (COVID-19) mRNAMUL.ORD![id number] 09/21/2022 Recorded SARSCoV2 mRNA(jdezolrnw-wuwg-gdztto) vac 03/23/2022 Recorded SARS-CoV-2 (COVID-19) mRNA BNT-162b2 vax 08/09/2021 Recorded 2023-08-31: TPV65 SARS-CoV-2 (COVID-19) mRNA BNT-162b2 vax 01/12/2021 Recorded SARS-CoV-2 (COVID-19) mRNA BNT-162b2 vax 12/21/2020 RecordedFirelands Regional Medical CenterComment on above:Result Comment: Electronically Signed By: YOHANA NARAYAN, Eron Starks\Date and Time Signed: 10/10/23 14:58 Jessie 10-10-2023 Reminders From: Brigette Arce LPN To: N - Clinical; Sent: 10/10/2023 14:44:13 EST Show up: 08/28/2033 07:00:00 EST Subject: colonoscopy recall Due Date/Time: 09/27/2033 07:00:00 EST Reminder/Recall Patient due for screening colonoscopy 09/27/2033.NormalWilson HealthPathology Noteon 45-71-6752Dwprbadzj Note [id number]#1.00TIFUniversity Hospitals Ahuja Medical CenterOutside Colonoscopyon 75-51-7240Vmldkjj Colonoscopy [id number]#1.00[facility] HospitalConsent for Procedure/Surgeryon 31-85-1103Evsatdd for Procedure/Surgery [id number]#1.00[facility] HospitalFacesheeton 68-11-6717Zcctqtmxg [id number]#1.00[facility] HospitalAmbulatory Visit Summaryon 34-75-2594Svnltmecfe Visit Summary MARYAM ADAM :1955 Visit Date:09/05/2023 Ambulatory Visit Instructions Your Diagnosis Positive colorectal cancer screening using Cologuard test Your Care Team Attending Physician - YOHANA NARAYAN, Eron Huffman Primary Care Physician - Sacha NARAYAN, Lala Referring Physician - Lala Goncalves MD This Is Your Medications List Contact [...] of right shoulder, Colonoscopy, Colonoscopy, Rotator cuff repair,Tonsillectomy, VH - Vaginal hysterectomy. Discharge Vitals Heart [...] Tablets By Mouth 2 times a day Contactprescribing physician if questions or concerns Unchanged lisinopril [...] you for choosing us for your care. [facility] CenterLab Reportson [id number] [id number]#1.00TIFFNormalWilson HealthConsultation Noteon 29-43-0461Zycwiifluiqf Note [id number]#1.00TIFFFirelands Regional Medical CenterPhysician Referralon [id number] Referral [id number]#1.00CD:127Firelands Regional Medical CenterMG MAMM SCREEN 3D SERINA CADon 33-88-5921JA MAMM SCREEN 3D SERINA CADPatient: MARYAM ADAM Exam Date: 09/21/2022 : 1955 Gender:F Ordering : DR ELIZABETH FLORES Admission #: [id number] Family : Order #: [id number] CLICK HERE TO VIEW EXAM RADIOLOGY REPORT [...] lung cancer at age 62. LOCATION: [facility] BREAST COMPOSITION: Almost entirely fatty. FINDINGS: [...] by: Prosper Reynoso M.D. on 09/21/2022 at 15:46NoKettering Health MiamisburgCBC AUTO DIFFon 52-67-1379RUBE #0.1 103/ulNormal0.0-0.1The [facility] CampusComment on above:Performed By: #### CBC #### [facility] [address] [address] [address] Sona CortezBasophils/100 WBC (Bld)0.7 %Normal0.2-2.0[facility] Comment on above:Performed By: #### CBC #### [facility] [address] [address] [address] Sona Moran #0.2 103/ulNormal0.0-0.7The [facility] CampusComment on above: Performed By: #### CBC #### [facility] [address] [address] [address] Sona Mansfieldosinophils/100 WBC (Bld)2.1 %Normal0.9-7.0[facility] Comment on above:Performed By: #### CBC #### [facility] [address] [place] [address] Dr. Sona Mansfieldrythrocyte distribution width (RBC) [Ratio]12.1 %Nkiolk24.0-15.[address] [facility] CampusComment on above:Performed By: #### CBC #### [facility] [address] [place] [address] Dr. Sona CortezHematocrit (Bld) [Volume fraction]37.6 %Yibdbv53.0-48.0The [facility] CampusComment on above:Performed By: #### CBC #### [facility] [address] [place] [address] Dr. Sona CortezHemoglobin (Bld) [Mass/Vol]12.5 g/oOYhcpjz28.0-16.0The [facility] CampusComment on above:Performed By: #### CBC #### [facility] [address] [place] [address] Dr. Sona Siddiqui #0.01 10e3/ulNormal0.00-0.03The [facility] CampusComment on above:Performed By: #### CBC #### [facility] [address] [place] [address] Dr. Sona Siddiqui %0.1 %Normal0.0-0.5The [facility] CampusComment on above: Performed By: #### CBC #### [facility] [address] [address] [address] Sona Landeros #2.0 103/ulNormal1.2-3.8The [facility] CampusComment on above:Performed By: #### CBC #### [facility] [address] [address] [address] Sona Villatorohocytes/100 WBC (Bld)28.3 %Xvytsl72.5-60.0The [facility] CampusComment on above:Performed By: #### CBC #### [facility] [address] [place] [address] Dr. Sona Cárdenas DIFF REQNONormalThe St. [facility] CampusComment on above: Performed By: #### CBC #### [facility] [address] [place] [address] Dr. Sona Mcdaniel (RBC) [Entitic mass]31.9 xoUwyyqw81.7-34.0The [facility] CampusComment on above:Performed By: #### CBC #### [facility] [address] [place] [address] Dr. Sona Nava (RBC) [Mass/Vol]33.2 g/uVKxhhmr51.9-35.2The [facility] on above:Performed By: #### CBC #### [facility] [address] [place] [address] Dr. Sona Nava (RBC) [Entitic vol]95.9 dUZoijdh95.0-99.0The [facility] on above:Performed By: #### CBC #### [facility] [address] [place] [address] Dr. Sona Brand #0.4 103/ulNormal0.3-0.8The [facility] on above:Performed By: #### CBC #### [facility] [address] [place] [address] Dr. Sona Warnerocytes/100 WBC (Bld)5.7 %Normal1.7-12.0The [facility] Comment on above:Performed By: #### CBC #### [facility] [address] [address] [address] Sona Claire #4.4 103/ulNormal1.4-6.5The [facility] CampusComment on above:Performed By: #### CBC #### [facility] [address] [address] [address] Sona Costautrophils/100 WBC (Bld)63.1 %Arfgtp73.0-75.0The [facility] CampusComment on above:Performed By: #### CBC #### [facility] [address] [place] [address] Dr. Sona De Dioslet mean volume (Bld) [Entitic vol]8.5 fLCritically low 9.5-13.5The [facility] CampusComment on above:Performed By: #### CBC #### [facility] [address] [place] [address] Dr. Sona CortezPLT313 103/qrZckylk149-503Znu [facility] CampusComment on above: Performed By: #### CBC #### [facility] [address] [place] [address] Dr. Sona CortezRBC3.92 106/ulCritically low4.20-5.40The [facility] CampusComment on above:Performed By: #### CBC #### [facility] [address] [place] [address] Dr. Sona CortezWBC7.0 103/ulNormal4.0-11.0The [facility] CampusComment on above: Performed By: #### CBC #### [facility] [address] [place] [address] Dr. Sona Bush THYROXINE INDEX T7on 58-68-4432NZZ3.71Gqdfrr9.30-4.50The [facility] CampusComment on above:Performed By: #### URIC, T7, TSH, CMP, LIPID #### [facility] [address] [place] [address] Dr. Sona CortezT3U33.0 %Kmeghw63.0-39.0The [facility] CampusComment on above: Performed By: #### URIC, T7, TSH, CMP, LIPID #### [facility] [address] [address] [address] Sona CortezT4 [Mass/Vol]7.00 ug/dLNormal4.80-13.90The [facility] Comment on above:Performed By: #### URIC, T7, TSH, CMP, LIPID #### [facility] [address] [place] [address] Dr. Sona CortezGLYCOHEMOGLOBIN A1Con 40-03-0224ZRJ RECOMMENDATIONSEE BELOWKnox Community HospitalComment on above:Result Comment: ADA RECOMMENDED LIMIT 4.0 - 6.0 ADA THERAPEUTIC TARGET < 7.0 ACTION SUGGESTED > 7.0Performed By: #### A1C #### [facility] [address] [place] [address] Dr. Sona CortezGlucose [Mass/Vol]131 mg/dLNoKettering Health MiamisburgComment on above:Performed By: #### A1C #### [facility] [address] [place] [address] Dr. Sona CortezHbA1c (Bld) [Mass fraction]6.2 %Normal4.5-6.2The [facility] CampusComment on above:Performed By: #### A1C #### [facility] [address] [place] [address] Dr. Sona Saenz [id number] [Mass/Vol]98.0 ug/vRWoecwm02.0-170.0The [facility] CampusComment on above:Performed By: #### VITAD, IRON #### [facility] [address] [place] [address] Dr. Sona CortezLIPID PROFILEon [id number]-HDL RATIO NORMSEE [facility] CenterComuniversity of [facility] on above:Result Comment: 3.3 - 4.4 LOW RISK 4.4 - 7.1 AVERAGE RISK 7.1 - 11.0 MODERATE RISK >11.0 HIGH RISKPerformed By: #### VITAD, IRON #### [facility] [address] [address] [address] Sona CortezCholesterol [Mass/Vol]187 mg/dLNormal<=200The [facility] Comment on above:Performed By: #### VITAD, IRON #### [facility] [address] [address] [address] Sona CortezCholesterol in HDL [Mass/Vol]59 mg/xHMkymjt46-87Bfz St[facility] CampusComment on above:Performed By: #### VITAD, IRON #### [facility] [address] [address] [address] Sona CortezCholesterol in LDL [Mass/Vol]94.8 mg/dLProtestant Deaconess HospitalComment on above:Performed By: #### VITAD, IRON #### [facility] [address] [place] [address] Dr. Sona Lomeliesterrobert.total/Cholesterol in HDL [Mass ratio]3.2 {ratio} NormalThe St. [facility] CampusComment on above:Performed By: #### VITAD, IRON #### [facility] [address] [address] [address] Sona Ch NORMAL> or = 60 mg/dl - LOW CARDIOVASCULAR RISK <40 mg/dl - HIGH CARDIOVASCULAR RISKProtestant Deaconess HospitalComment on above:Performed By: #### VITAD, IRON #### [facility] [address] [place] [address] Dr. Sona CortezLDL CALC NORMALSEE BELOWNoKettering Health MiamisburgComment on above:Result Comment: <100 mg/dl OPTIMAL 100 - 129 mg/dl NEAR OR ABOVE OPTIMAL 130 - 159 mg/dl BORDERLINE HIGH 160 - 189 mg/dl HIGH >190 mg/dl VERY HIGH Performed By: #### VITAD, IRON #### [facility] [address] [place] [address] Dr. Sona CortezTriglyceride [Mass/Vol]166 mg/dLCritically high<=150The [facility] CampusComment on above:Performed By: #### VITAD, IRON #### [facility] [address] [place] [address] Dr. Sona WoodLDL CALC33.2 mg/dLNormalThe St. [facility] CampusComment on above: Performed By: #### VITAD, IRON #### [facility] [address] [place] [address] Dr. Sona Head 14(COMP METB)on 04-67-2055Nruckzz [Mass/Vol]4.1 g/dLNormal 3.4-5.0The [facility] CampusComment on above:Performed By: #### URIC, T7, TSH, CMP, LIPID #### [facility] [address] [place] [address] Dr. Sona CortezAlbumin/Globulin [Mass ratio]1.2 {ratio}NormalThe St. [facility] CampusComment on above:Performed By: #### URIC, T7, TSH, CMP, LIPID #### [facility] [address] [place] [address] Dr. Sona Riley [Catalytic activity/Vol]87 U/NDpulpy04-111Qns [facility] Hospitalment on above:Performed By: #### URIC, T7, TSH, CMP, LIPID #### [facility] [address] [place] [address] Dr. Sona Dickson [Catalytic activity/Vol]31 U/FPztpeq35-99Anc Miami [facility] Hospitalment on above:Performed By: #### URIC, T7, TSH, CMP, LIPID #### [facility] [address] [place] [address] Dr. Sona Bullock gap [Moles/Vol]14.8 mmol/LNormalThe [facility] Comment on above:Performed By: #### URIC, T7, TSH, CMP, LIPID #### [facility] [address] [place] [address] Dr. Sona Avila [Catalytic activity/Vol]17 U/RZvljyf57-73Ybi [facility] Hospitalment on above:Performed By: #### URIC, T7, TSH, CMP, LIPID #### [facility] [address] [place] [address] Dr. Yilan ChangBilirubin [Mass/Vol]0.4 mg/dLNormal0.2-1.0The [facility] Comment on above:Performed By: #### URIC, T7, TSH, CMP, LIPID #### [facility] [address] [address] [address] Sona CortezCalcium [Mass/Vol]9.1 mg/dLNormal8.5-10.1[facility] Comment on above:Performed By: #### URIC, T7, TSH, CMP, LIPID #### [facility] [address] [address] [address] Sona CortezChloride [Moles/Vol]100 mmol/MLzfpfz60-916BrdWilson Memorial Hospital Comment on above:Performed By: #### URIC, T7, TSH, CMP, LIPID #### [facility] [address] [place] [address] Dr. Sona CortezCO2 [Moles/Vol]27.4 mmol/NCkewox08.0-32.0[facility] Comment on above:Performed By: #### URIC, T7, TSH, CMP, LIPID #### [facility] [address] [place] [address] Dr. Sona CortezCreatinine [Mass/Vol]1.05 mg/dLCritically high0.55-1.02The [facility] CampusComment on above:Performed By: #### URIC, T7, TSH, CMP, LIPID #### [facility] [address] [address] [address] Sona MansfieldGFR-AF ARMENIAN>60Normal>=60The [facility] CampusComment on above:Performed By: #### URIC, T7, TSH, CMP, LIPID #### [facility] [address] [address] [address] Sona MansfieldGFR-NON AF ZKHQDDTX51 mL/min/1.88y6Bjfvrsetis low>=60The [facility] CampusComment on above:Performed By: #### URIC, T7, TSH, CMP, LIPID #### [facility] [address] [address] [address] Sona CortezGlobulin (S) [Mass/Vol]3.5 g/dLNormGlenbeigh HospitalComment on above:Performed By: #### URIC, T7, TSH, CMP, LIPID #### [facility] [address] [place] [address] Dr. Sona CortezGlucose [Mass/Vol]149 mg/dLCritically rkbl79-830Fcl [facility] CampusComment on above:Performed By: #### URIC, T7, TSH, CMP, LIPID #### [facility] [address] [place] [address] Dr. Sona CortezPotassium [Moles/Vol]4.2 mmol/LNormal3.5-5.1The [facility] Comment on above:Performed By: #### URIC, T7, TSH, CMP, LIPID #### [facility] [address] [place] [address] Dr. Sona CortezProtein [Mass/Vol]7.6 g/dLNormal6.4-8.2The [facility] Comment on above:Performed By: #### URIC, T7, TSH, CMP, LIPID #### [facility] [address] [place] [address] Dr. Sona CortezSodium [Moles/Vol]138 mmol/PHwaovk886-186Lwr [facility] Comment on above:Performed By: #### URIC, T7, TSH, CMP, LIPID #### [facility] [address] [place] [address] Dr. Sona CortezUrea nitrogen [Mass/Vol]17.0 mg/dLNormal7.0-18.0The [facility] CampusComment on above:Performed By: #### URIC, T7, TSH, CMP, LIPID #### [facility] [address] [place] [address] Dr. Sona CortezUrea nitrogen/Creatinine [Mass ratio]16.2 mg/mgNoKettering Health MiamisburgComment on above:Performed By: #### URIC, T7, TSH, CMP, LIPID #### [facility] [address] [place] [address] Dr. Sona Linda 85-68-3846KVQ1.358 uIU/mLNormal0.358-3.740The [facility] CampusComment on above:Performed By: #### URIC, T7, TSH, CMP, LIPID #### [facility] [address] [place] [address] Dr. Sona Keller ACID SERUMon 35-20-5965Whouv [Mass/Vol]5.2 mg/dLNormal 2.6-6.0The [facility] CampusComment on above:Performed By: #### URIC, T7, TSH, CMP, LIPID #### [facility] [address] [place] [address] Dr. Sona CortezVITAMIN D 25 OHon 38-38-6041FWI D 25-OH15.6 ng/mLNormalWilson Memorial HospitalComment on above:Performed By: #### VITAD, IRON #### [facility] [address] [place] [address] Dr. Sona Pierce RANGESSEE [facility] Health CenterComment on above: Result Comment: <20 ng/mL Vit D deficient 20 - <30 ng/mL Vit D insufficient 30 - 100 ng/mL Vit D sufficient >100 ng/mL Potential ToxicityPerformed By: #### VITAD, IRON #### [facility] [address] [place] [address] Dr. Sona CortezOperative Reporton [id number] ReportMR#: [id number] I [facility] Pt. Name: Maryam Adam Room #: [id number] Discharge 08/03/2019 Date: Birthdate: 1955 OPERATIVE REPORT DATE OF SURGERY: 08/02/2019 SURGEON: Krishna [place] MD TEA BLENDER: Tirso Gonzales MD. PREOPERATIVE DIAGNOSIS: Right shoulder [...] the humeral head, and we used a telecommunications network planner to make sure the stem was [...] is massively soaked. Electronically Signed by: Krishna [place] MD 08/11/2019 11:39 A Krishna [place] MD Date Dict: 08/04/2019/09:25 P/Krishna [place] MD Date Trans: 08/05/2019 01:24 A/macho DN_JN:[id number] cc: Lala Goncalves M.D. [address], [place] [address]KxpvgnSrrClinton Memorial HospitalBASIC METABOLIC PANELon [id number] [Mass/Vol]8.9 mg/dLNormal8.6-10.3The [facility]itt[facility] Medical CenterComment on above:Order Comment: No: Do not add to previous drawPerformed By: #### [id number] #### [facility] [address] [place] [address], USAChloride [Moles/Vol]104 mmol/YIryfly23-903Jzc [facility] Medical CenterComment on above:Order Comment: No: Do not add to previous drawPerformed By: #### [id number] #### [facility] [address] [place] [address], USACO2 [Moles/Vol]30 mmol/UEuwxqx85-83Lee [facility] Medical CenterComment on above:Order Comment: No: Do not add to previous draw Performed By: #### [id number] #### [facility] [address] [place] [address], USACreatinine [Mass/Vol]0.94 mg/dLNormal0.60-1.20The [facility] Medical CenterComment on above:Order Comment: No: Do not add to previous drawPerformed By: #### [id number] #### [facility] [address] [place] [address], USAGFR/1.73 sq M predicted among blacks MDRD (S/P/Bld) [Vol rate/Area]mL/min/{1.73_m2}Normal>60The [facility] Comment on above:Order Comment: No: Do not add to previous drawPerformed By: #### [id number] #### [facility] [address] [place] [address], USAGFR/1.73 sq M predicted among non-blacks MDRD (S/P/Bld) [Vol rate/Area]mL/min/{1.73_m2}Normal>60The [facility] Comment on above:Order Comment: No: Do not add to previous drawPerformed By: #### [id number] #### [facility] [address] [place] [address], USAGlucose [Mass/Vol]136 mg/fQRjry94-648Llj [facility] CenterComment on above:Order Comment: No: Do not add to previous drawPerformed By: #### [id number] #### [facility] [address] [place] [address], USAPotassium [Moles/Vol]4.4 mmol/LNormal3.5-5.1The [facility] Medical CenterComment on above:Order Comment: No: Do not add to previous drawPerformed By: #### [id number] #### [facility] [address] [place] [id number], USASodium [Moles/Vol]141 mmol/GMpbfdy467-012Lvt [facility] CenterComment on above:Order Comment: No: Do not add to previous drawPerformed By: #### [id number] #### [facility] [address] [place] [address], USAUrea nitrogen [Mass/Vol]12 mg/dLNormal7-25The [facility] CenterComment on above:Order Comment: No: Do not add to previous drawPerformed By: #### [id number] #### [facility] [address] [place] [address], [facility]LEY HOSPITALCBC W/DIFFon 27-40-5234UQP BASOPHILS0.0 10*3/uLNormal 0.0-0.2The [facility] CenterComment on above:Order Comment: No: Do not add to previous drawPerformed By: #### [id number] #### [facility] [address] [place] [address], USAABS IMM GRANS0.1 10*3/uLNormal0.0-0.2The [facility] Medical CenterComment on above:Order Comment: No: Do not add to previous drawPerformed By: #### [id number] #### [facility] [address] [place] [address], CARRI[facility] TINGLEY HOSPITALABS NEUTROPHILS8.0 10*3/uLHigh1.6-7.6The [facility] CenterComment on above:Order Comment: No: Do not add to previous drawPerformed By: #### [id number] #### [facility] [address] [facility] [place] [id number], USABasophils/100 WBC (Bld)0.1 %Normal0.0-1.0The [facility] Medical CenterComment on above:Order Comment: No: Do not add to previous drawPerformed By: #### [id number] #### [facility] [address] [place] [address], USAEosinophils (Bld) [#/Vol]0.0 10*3/uLNormal0.0-0.5The [facility] CenterComment on above:Order Comment: No: Do not add to previous drawPerformed By: #### [id number] #### [facility] [address] [facility] [place] [address], USAEosinophils/100 WBC (Bld)0.0 %Normal0.0-6.0The [facility] Medical CenterComment on above:Order Comment: No: Do not add to previous drawPerformed By: #### [id number] #### [facility] [address] [facility] [place] [address], USAErythrocyte distribution width (RBC) [Ratio]12.1 %Normal 11.5-15.0The [facility] Medical CenterComment on above:Order Comment: No: Do not add to previous drawPerformed By: #### [id number] #### [facility] [address] [facility] [place] [address], USAHematocrit (Bld) [Volume fraction]29.4 %Low36.0-45.0The [facility] Medical CenterComment on above:Order Comment: No: Do not add to previous drawPerformed By: #### [id number] #### [facility] [address] [place] [address], USAHemoglobin (Bld) [Mass/Vol]9.5 g/dLLow12.0-15.0The [facility] CenterComment on above:Order Comment: No: Do not add to previous drawPerformed By: #### [id number] #### [facility] [address] [facility] [place] [address], USAIMMATURE GRANS0.5 %Normal0.0-1.0The [facility] Medical CenterComment on above:Order Comment: No: Do not add to previous draw Performed By: #### [id number] #### [facility] [address] [place] [address], USALymphocytes (Bld) [#/Vol]1.3 10*3/uLNormal1.2-4.0The [facility] CenterComment on above:Order Comment: No: Do not add to previous drawPerformed By: #### [id number] #### [facility] [address] [facility] [address], USALymphocytes/100 WBC (Bld)13.1 %Low20.0-45.0The [facility] Medical CenterComment on above:Order Comment: No: Do not add to previous drawPerformed By: #### [id number] #### [facility] [address] [place] [address], [facility] (RBC) [Entitic mass]32.0 egCqxmbb80.0-33.0The [facility] CenterComment on above:Order Comment: No: Do not add to previous drawPerformed By: #### [id number] #### [facility] [address] [address], [facility] (RBC) [Mass/Vol]32.3 g/sQLjqkgn68.0-35.0The [facility] CenterComment on above:Order Comment: No: Do not add to previous drawPerformed By: #### [id number] #### [facility] [address] [address], [facility] (RBC) [Entitic vol]99.0 qAXqsu45.0-98.0The [facility] Medical CenterComment on above:Order Comment: No: Do not add to previous drawPerformed By: #### [id number] #### [facility] [address] [place] [address], USAMonocytes (Bld) [#/Vol]0.7 10*3/uLNormal0.1-1.0The [facility] Medical CenterComment on above:Order Comment: No: Do not add to previous drawPerformed By: #### [id number] #### [facility] [address] [place] [address], USAMONOS7.2 %Normal5.0-12.0The [facility] Medical CenterComment on above:Order Comment: No: Do not add to previous drawPerformed By: #### [id number] #### [facility] [address] [place] [address], USANeutrophils/100 WBC (Bld)79.1 %High40.0-72.0The [facility] Medical CenterComment on above:Order Comment: No: Do not add to previous drawPerformed By: #### [id number] #### [facility] [address] [place] [address], USANucleated RBC/100 WBC (Bld) [Ratio]0 %Normal0-0The [facility] Medical CenterComment on above:Order Comment: No: Do not add to previous drawPerformed By: #### [id number] #### [facility] [address] [place] [address], USAPLAT QWO421 10*3/oZFicvim892-447Xjh [facility] CenterComment on above:Order Comment: No: Do not add to previous draw Performed By: #### [id number] #### [facility] [address] [place] [address], USARBC (Bld) [#/Vol]2.97 10*6/uLLow3.80-5.00The [facility] Medical CenterComment on above:Order Comment: No: Do not add to previous drawPerformed By: #### [id number] #### [facility] [address] [place] [address], USAWBC (Bld) [#/Vol]. 10*3/uLNormal4.00-10.60The [facility] Medical CenterComment on above:Order Comment: No: Do not add to previous drawPerformed By: #### [id number] #### [facility] [address] [place] [address], USAPOC GLUCOSE LABon 64-12-0766Wrqyijy [Mass/Vol]95 mg/dL Oefbcd28-441Psz [facility] CenterComment on above:Performed By: #### [id number] #### [facility] [address] [facility] [place] [address], USAPORTABLE SHOULDER RIGHT 2 VWSon [id number] SHOULDER RIGHT 2 SUniversClermont County Hospital Department of Radiology [address] [place] [id number] Patient Name: MARYAM ADAM : 1955 Sex: F Age: Race: White Pt. Location: [facility] [place] [address] Patient Status: I Ordered Date: 08/02/2019 5:55:00 PM Completed Date: 08/02/2019 06:34 PM Requesting Provider: TIRSO GONZALES Attending Provider: KRISHNA COLLINS Report Copy To: Signs & Symptoms: Pain ( specify Location) History: See Comments Comments: Hardware Evaluation Exam: PORTABLE SHOULDER RIGHT 2 VWS PORTABLE SHOULDER RIGHT 2 VWS 08/02/2019 6:34 [...] findings. Electronically signed by:Dustin Rowe. Transcribed by: [email or web address], User Resident: VILMA AMAYA Electronically Signed by: DUSTIN ROWE @ 08/02/2019 07:31 PM I personally read this/these film(s) with this residentClinton Memorial HospitalComment on above:Order Comment: No: Do not add to previous drawCT 3D UPPER EXTREMITY WO CONTRAST RIGHTon 29-29-7290PB 3D UPPER EXTREMITY WO CONTRAST RIGHTUnFort Hamilton Hospital Department of Radiology [address] [place] [address] Patient Name: MARYAM ADAM : 1955 Sex: F Age: Race: White Pt. Location: 84 Patient Status: D Ordered Date: 07/02/2019 3:40:00 PM Completed Date: 07/10/2019 04:05 PM Requesting Provider: KRISHNA COLLINS Attending Provider: KRISHNA COLLINS Report Copy To: LALA GONCALVES Signs & Symptoms: M25.811 Other specified joint disorders, right shoulder I10 History: Marie, no pc per todd @ [facility] cpt code 47098 *mla Comments: right shoulder for surgical planning [...] injury. Electronically signed by:Chandni Odonnell. Transcribed by: [email or web address], User Resident: Electronically Signed by: CHANDNI ODONNELL @ 07/10/2019 04:22 [facility] CenterComment on above:Order Comment: No: Do not add to previous drawSHOULDER Elaine [id number] [facility] Department of Radiology [address] [place] [id number] Patient Name: MARYAM ADAM : 1955 Sex: F Age: Race: White Pt. Location: 84 Patient Status: O Ordered Date: 07/02/2019 3:00:00 PM Completed Date: 07/02/2019 03:10 PM Requesting Provider: KRISHNA COLLINS Attending Provider: KRISHNA COLLINS Report Copy To: Signs & Symptoms: M25.519 Pain in unspecified shoulder I10 History: [place] Comments: , , , Ordering Provider - KRISHNA COLLINS MD , Exam: SHOULDER RIGHT SHOULDER RIGHT 07/02/2019 3:10 PM EDT SIGNS AND SYMPTOMS: M25.519 Pain in unspecified shoulder I10 TECHNOLOGIST COMMENTS: ortho consult pt states getting shoulder replacement surgery QUESTION FOR THE RADIOLOGIST: , , , Ordering Provider - KRISHNA COLLINS MD , PROTOCOL: COMPARISON: September 04, 2018 FINDINGS: Soft tissues: Unchanged Bones: Healing proximal humerus Joints: Progression of cephalic migration and subacromial narrowing IMPRESSION: 1. Healing proximal humeral fracture, likely Hill-Sachs defect. No bony Bankart. 2. AC joint arthritis and subacromial narrowing with cephalic migration of humeral head indicating rotator cuff pathology as well as shoulder instability Electronically signed by:Chandni Odonnell. Transcribed by: [email or web address], User Resident: Electronically Signed by: CHANDNI ODONNELL @ 07/02/2019 03:41 PMNormalThe [facility]itt[facility] CenterComment on above:Order Comment: No: Do not add to previous drawOperative Reporton [id number] ReportMR#: [id number] S [facility] Pt. Name: Maryam Adam Room #: 9D Discharge 11/27/2018 Date: Birthdate: 1955 OPERATIVE REPORT DATE OF SURGERY: 11/27/2018 SURGEON: Krishna [place] MD PREOPERATIVE DIAGNOSIS: Right shoulder massive rotator [...] in 2 weeks. Electronically Signed by: Krishna [place] MD 12/09/2018 08:23 P Krishna [place] MD Date Dict: 11/28/2018/07:32 P/Krishna [place] MD Date Trans: 11/29/2018 06:23 A/macho DN_JN:[id number] cc: Lala Goncalves M.D. [place] [id number] [facility] [place] [address]FbrtmwFldChildren's Hospital for Rehabilitation GLUCOSE LABon 47-78-1800Crowbvg [Mass/Vol]90 mg/nUOfknsq55-507Hfe [facility]itt[facility] CenterComment on above:Performed By: #### [id number] #### [facility] [address] [place] [address], [facility]*MRSA/MSSA DNA NASALon 11-06-2018*MRSA/MSSA DNA NASAL Clinical Report: (D) Specimen: NASAL SWAB Collected: 11/06/2018 13:53 Status: Final Last Updated: 11/06/2018 18:38 MSSA DNA (Final) Negative MRSA DNA (Final) NegativeNormalThe [facility] CenterComment on above:Performed By: #### [id number] #### [facility] [address] [place] [address], [facility] HOSPITALAPTTon 53-08-5326xZXR Coag (Bld) [Time]33.9 sNormal 25.0-35.0The [facility]itt[facility] Medical CenterComment on above:Result Comment: ALL RESULTS MUST BE INTERPRETED WITH RESPECT TO BLOOD DRAWING ARTIFACT OR DILUTION ERROR OF ANTICOAGULANT AT THE TIME OF SAMPLING. THE APTT SHOULD NOT BE USED TO MONITOR UNFRACTIONATED HEPARIN THERAPY, THIS LABORATORY NO LONGER HAS AN ESTABLISHED THERAPEUTIC RANGE BASED ON THE APTT. IT IS RECOMMENDED THAT THE UFH - HEPARIN ASSAY (ANTI-XA ACTIVITY) BE USED FOR THIS PURPOSE.Performed By: #### 98417 #### [facility] [address] [place] [address], USABASIC METABOLIC PANELon 98-69-3954Xafflsh [Mass/Vol]9.4 mg/dLNormal8.6-10.3The [facility]itt[facility] Medical CenterComment on above: Performed By: #### [id number] #### [facility] [address] [place] [address], USAChloride [Moles/Vol]102 mmol/IVyqazn96-488Gvl [facility] CenterComment on above:Performed By: #### 57826 #### [facility] [address] [place] [address], USACO2 [Moles/Vol]27 mmol/REhgeky16-42Bub [facility] CenterComment on above:Performed By: #### 47482 #### [facility] [address] [place] [address], USACreatinine [Mass/Vol]0.86 mg/dLNormal0.60-1.20The [facility] Medical CenterComment on above:Performed By: #### 20721 #### [facility] [address] [facility] [place] [address], USAGFR/1.73 sq M predicted among blacks MDRD (S/P/Bld) [Vol rate/Area]mL/min/{1.73_m2}Normal>60The [facility] Comment on above:Performed By: #### 59966 #### [facility] [address] [facility] [place] [address], USAGFR/1.73 sq M predicted among non-blacks MDRD (S/P/Bld) [Vol rate/Area]mL/min/{1.73_m2}Normal>60The [facility] Comment on above:Performed By: #### 25786 #### [facility] [address] [place] [address], USAGlucose [Mass/Vol]91 mg/oWCmdffh15-134Odt [facility] CenterComment on above:Performed By: #### 18756 #### [facility] [address] [place] [address], USAPotassium [Moles/Vol]4.1 mmol/LNormal3.5-5.1The [facility] Medical CenterComment on above:Performed By: #### 32407 #### [facility] [address] [place] [address], USASodium [Moles/Vol]134 mmol/EXha752-965Dsc [facility] CenterComment on above:Performed By: #### 82536 #### [facility] [address] [facility] [place] [address], USAUrea nitrogen [Mass/Vol]17 mg/dLNormal7-25The [facility] CenterComment on above:Performed By: #### 20741 #### [facility] [address] [place] [address], [facility]OSPITALCBC W/DIFFon 33-90-9492IYR BASOPHILS0.1 10*3/uLNormal 0.0-0.2The [facility] CenterComment on above:Performed By: #### 95425 #### [facility] [address] [place] [address], CAR[facility]ING[facility] HOSPITALABS IMM GRANS0.0 10*3/uLNormal0.0-0.2The [facility] CenterComment on above:Performed By: #### 10805 #### [facility] [address] [place] [address], CAR[facility] TINGLEY HOSPITALABS NEUTROPHILS4.6 10*3/uLNormal1.6-7.6The [facility] CenterComment on above:Performed By: #### 11840 #### [facility] [address] [place] [address], USABasophils/100 WBC (Bld)0.7 %Normal0.0-1.0The [facility] Medical CenterComment on above:Performed By: #### 12377 #### [facility] [address] [place] [address], CAR[facility] TINGLEY HOSPITALEosinophils (Bld) [#/Vol]0.1 10*3/uLNormal0.0-0.5The [facility] CenterComment on above:Performed By: #### 93962 #### [facility] [address] [place] [address], USAEosinophils/100 WBC (Bld)1.8 %Normal0.0-6.0The [facility] CenterComment on above:Performed By: #### 38602 #### [facility] [address] [place] [address], USAErythrocyte distribution width (RBC) [Ratio]11.9 %Normal 11.5-15.0The [facility] Medical CenterComment on above:Performed By: #### 50148 #### [facility] [address] [place] [address], USAHematocrit (Bld) [Volume fraction]38.6 %Atdrgd88.0-45.0The [facility] CenterComment on above:Performed By: #### 56682 #### [facility] [address] [facility] [place] [address], USAHemoglobin (Bld) [Mass/Vol]12.6 g/lAZsdegd03.0-15.0The [facility] CenterComment on above:Performed By: #### 93418 #### [facility] [address] [place] [address], USAIMMATURE GRANS0.1 %Normal0.0-1.0The [facility] Medical CenterComment on above:Performed By: #### 39736 #### [facility] [address] [place] [address], USALymphocytes (Bld) [#/Vol]1.9 10*3/uLNormal1.2-4.0The [facility] CenterComment on above:Performed By: #### 58628 #### [facility] [address] [place] [address], USALymphocytes/100 WBC (Bld)26.3 %Wvrgux58.0-45.0The [facility] CenterComment on above:Performed By: #### 58480 #### [facility] [address] [place] [address], USAMCH (RBC) [Entitic mass]30.8 xzRhunum38.0-33.0The [facility] CenterComment on above:Performed By: #### 39804 #### [facility] [address] [place] [address], USAMCHC (RBC) [Mass/Vol]32.6 g/wFFqewjo80.0-35.0The [facility] CenterComment on above:Performed By: #### 17952 #### [facility] [address] [place] [address], [facility]LEY HOSPITALMCV (RBC) [Entitic vol]94.4 bTQahgxl47.0-98.0The [facility] CenterComment on above:Performed By: #### 58615 #### [facility] [address] [place] [address], USAMonocytes (Bld) [#/Vol]0.4 10*3/uLNormal0.1-1.0The [facility] CenterComment on above:Performed By: #### 32888 #### [facility] [address] [place] [address], USAMONOS5.5 %Normal5.0-12.0The [facility] Medical CenterComment on above:Performed By: #### 06862 #### [facility] [address] [place] [address], USANeutrophils/100 WBC (Bld)65.6 %Hyobxl92.0-72.0The [facility] CenterComment on above:Performed By: #### 01673 #### [facility] [address] [place] [address], USANucleated RBC/100 WBC (Bld) [Ratio]0 %Normal0-0The [facility] CenterComment on above:Performed By: #### 17168 #### [facility] [address] [facility] [place] [address], USAPLAT [id number] 10*3/qUZfdopz128-708Fnb [facility] CenterComment on above:Performed By: #### 49219 #### [facility] [address] [place] [address], USARBC (Bld) [#/Vol]4.09 10*6/uLNormal3.80-5.00The [facility] CenterComment on above:Performed By: #### 61625 #### [facility] [address] [place] [address], CAR[facility] TINGLEY HOSPITALWBC (Bld) [#/Vol]7.03 10*3/uLNormal4.00-10.60The [facility] CenterComment on above:Performed By: #### 92934 #### [facility] [address] [place] [address], USAPROTHROMBIN TIMEon 45-99-7388KQO Coag (PPP) [Relative time] 0.93 {INR}Normal0.91-1.16The [facility] Medical CenterComment on above:Result Comment: ACCCP RECOMMENDED INR FOR WARFARIN THERAPY ------- CONDITION INR PROPHYLAXIS OF VENOUS THROMBOSIS 2-3 (HIGH-RISK SURGERY) TREATMENT OF VENOUS THROMBOSIS 2-3 TREATMENT OF PULMONARY EMBOLISM 2-3 PREVENTION OF SYSTEMIC EMBOLISM: 2-3 ACUTE MYOCARDIAL INFARCTION TISSUE HEART VALVES VALVULAR HEART DISEASE ATRIAL FIBRILLATION RECURRENT SYSTEMIC EMBOLISM MECHANICAL HEART VALVE 2.5-3.5 FROM: ORAL ANTICOAGULANTS. MECHANISM OF ACTION, CLINICAL EFFECTIVENESS, AND OPTIMAL THERAPEUTIC RANGE. CHEST 1995;108:231S-246S.Performed By: #### 20013 #### [facility] [address] [place] [address], USAPT Coag (PPP) [Time]12.5 bQxhyzt30.3-14.8The [facility] CenterComment on above:Result Comment: ALL RESULTS MUST BE INTERPRETED WITH RESPECT TO BLOOD DRAWING ARTIFACT OR DILUTION ERROR OF ANTICOAGULANT AT THE TIME OF SAMPLING.Performed By: #### 45957 #### [address] [place] [address], USAMRI SHOULDER WO CONTRAST RIGHTon 29-37-7288PUJ SHOULDER WO CONTRAST RIGHTSumma Health Wadsworth - Rittman [facility] Center Department of Radiology [address] [place] [phone] Patient Name: MARYAM ADAM : 1955 Sex: F Age: Race: White Pt. Location: Patient Status: D Ordered Date: 10/17/2018 3:15:00 PM Completed Date: 10/29/2018 04:20 PM Requesting Provider: KRISHNA COLLINS Attending Provider: KRISHNA COLLINS Report Copy To: LALA GONCALVES Signs & Symptoms: M75.121 Complete rotatr-cuff tear/ruptr of r shoulder, not trauma I10 History: [place] no pc per todd @ [facility] cpt code 07277 call ref# [id number] *mla Comments: , , , Ordering Provider - KRISHNA COLLINS MD , Exam: MRI SHOULDER WO CONTRAST RIGHT MRI SHOULDER WO CONTRAST RIGHT 10/29/2018 4:20 PM EST SIGNS AND SYMPTOMS: M75.121 Complete rotatr-cuff tear/ruptr of r shoulder, not trauma I10 TECHNOLOGIST COMMENTS: hx fall with shoulder dislocation 07/2018 limited ROM with radiating pain down right arm QUESTION FOR THE RADIOLOGIST: , , , Ordering Provider - KRISHNA COLLINS MD , PROTOCOL: Images were obtained in [...] bursitis. Electronically signed by:Chandni Odonnell. Transcribed by: [id number], User Resident: Electronically Signed by: CHANDNI ODONNELL @ 10/30/2018 12:47 PMNAshtabula General HospitalComment on above:Order Comment: No: Do not add to previous drawSTOMAH MEMORIAL [facility] Elaine [id number] [facility] Department of Radiology [address] [place] [phone] Patient Name: MARYAM ADAM : 1955 Sex: F Age: Race: White Pt. Location: 84 Patient Status: O Ordered Date: 09/04/2018 1:15:00 PM Completed Date: 09/04/2018 01:29 PM Requesting Provider: KRISHNA COLLINS Attending Provider: KRISHNA COLLINS Report Copy To: LALA GONCALVES Signs & Symptoms: S42.91XD Fx r shoulder girdle, part unsp, subs for fx farida prasad I10 History: Marie Comments: , Views (X-RAY, SHOULDER): AP, Grashey, Y-Lateral, [place] , Views (X-RAY, SHOULDER): AP, Grashey, Y-Lateral, [place] , , , Ordering Provider - KRISHNA COLLINS MD , Exam: SHOULDER RIGHT SHOULDER RIGHT 09/04/2018 1:29 PM EST SIGNS AND SYMPTOMS: S42.91XD Fx r shoulder girdle, part unsp, subs for fx farida prasad I10 TECHNOLOGIST COMMENTS: right shoulder pain hx: shoulder dislocates patient unable to do the Bern[place]au view at this time QUESTION FOR THE RADIOLOGIST: , Views (X-RAY, SHOULDER): AP, Grashey, Y-Lateral, [place] , Views (X-RAY, SHOULDER): AP, Grashey, Y-Lateral, [place]au , , , Ordering Provider - KRISHNA COLLINS MD , PROTOCOL: AP, Axillary and Scapular [...] Degenerative changes AC joint Electronically signed by:Brendan Grijalva. Transcribed by: [id number], User Resident: Electronically Signed by: BRENDAN GRIJALVA @ 09/04/2018 01:55 PMNormalThe [facility] CenterComment on above:Order Comment: No: Do not add to previous drawOperative Reporton [id number] ReportMR#: [id number] I [facility] Pt. Name: Maryam Adam Room #: 4CD [id number] Discharge 08/24/2018 Date: Birthdate: 1955 OPERATIVE REPORT DATE OF SURGERY: 08/23/2018 SURGEON: Krishna [place] MD PREOPERATIVE DIAGNOSIS: Right shoulder irreducible fracture-dislocation. [...] with followup x-rays. Electronically Signed by: Krishna [place] MD 09/01/2018 02:01 P Krishna [place] MD Date Dict: 08/25/2018/08:23 A/Krishna [place] MD Date Trans: 08/25/2018 09:10 Jaquan/macho DN_JN:[id number] cc: Lala Goncalves M.D. [place] [address] [facility] [address] Adilene Liu M.D. E R Physican...do Not Send [address] [place] [id number] Memorial HospitalBASIC METABOLIC PANELon 91-15-0167Dwwgkep [Mass/Vol]8.9 mg/dLNormal8.6-10.3The [facility] CenterComment on above:Order Comment: No: Do not add to previous drawPerformed By: #### 00447 #### [facility] [address] [place] [address], USAChloride [Moles/Vol]102 mmol/VSdrjwu62-432Rcu [facility] CenterComment on above:Order Comment: No: Do not add to previous drawPerformed By: #### 80473 #### [facility] [address] [place] [address], USACO2 [Moles/Vol]24 mmol/NIgwfwx66-94Ivk [facility] CenterComment on above:Order Comment: No: Do not add to previous draw Performed By: #### 15005 #### [facility] [address] [place] [address], USACreatinine [Mass/Vol]0.84 mg/dLNormal0.60-1.20The [facility] Medical CenterComment on above:Order Comment: No: Do not add to previous drawPerformed By: #### 95032 #### [facility] [address] [place] [address], USAGFR/1.73 sq M predicted among blacks MDRD (S/P/Bld) [Vol rate/Area]mL/min/{1.73_m2}Normal>60The [facility] Comment on above:Order Comment: No: Do not add to previous drawPerformed By: #### 71576 #### [facility] [address] [place] [address], USAGFR/1.73 sq M predicted among non-blacks MDRD (S/P/Bld) [Vol rate/Area]mL/min/{1.73_m2}Normal>60The [facility] Comment on above:Order Comment: No: Do not add to previous drawPerformed By: #### 76799 #### [facility] [address] [place] [address], USAGlucose [Mass/Vol]182 mg/tEAfup96-275Jij [facility] CenterComment on above:Order Comment: No: Do not add to previous drawPerformed By: #### 77520 #### [facility] [address] [place] [address], USAPotassium [Moles/Vol]4.1 mmol/LNormal3.5-5.1The [facility] CenterComment on above:Order Comment: No: Do not add to previous drawPerformed By: #### 89141 #### [facility] [address] [place] [address], USASodium [Moles/Vol]135 mmol/KDcv566-165Ipb [facility] CenterComment on above:Order Comment: No: Do not add to previous drawPerformed By: #### 48006 #### [facility] [address] [place] [address], USAUrea nitrogen [Mass/Vol]12 mg/dLNormal7-25The [facility] CenterComment on above:Order Comment: No: Do not add to previous drawPerformed By: #### 92961 #### [facility] [address] [place] [address], [facility]OSPITALCBC COMPLETE BLOOD COUNTon 33-20-3174Tatwpndelli distribution width (RBC) [Ratio]12.3 %Nbowvp66.5-15.0The [facility] Medical CenterComment on above:Order Comment: No: Do not add to previous draw Performed By: #### 73737 #### [facility] [address] [place] [address], USAHematocrit (Bld) [Volume fraction]34.9 %Low36.0-45.0The [facility] Medical CenterComment on above:Order Comment: No: Do not add to previous drawPerformed By: #### 96367 #### [facility] [address] [place] [address], USAHemoglobin (Bld) [Mass/Vol]11.7 g/dLLow12.0-15.0The [facility] CenterComment on above:Order Comment: No: Do not add to previous drawPerformed By: #### 42811 #### [facility] [address] [place] [address], [facility] (RBC) [Entitic mass]31.7 yuDsnkze48.0-33.0The [facility] Medical CenterComment on above:Order Comment: No: Do not add to previous drawPerformed By: #### 36275 #### [facility] [address] [place] [id number], [facility] (RBC) [Mass/Vol]33.5 g/bBFjbazb49.0-35.0The [facility] Medical CenterComment on above:Order Comment: No: Do not add to previous drawPerformed By: #### 32676 #### [facility] [address] [place] [address], [facility] (RBC) [Entitic vol]94.6 yELenjrx24.0-98.0The [facility] CenterComment on above:Order Comment: No: Do not add to previous drawPerformed By: #### 78167 #### [facility] [address] [place] [address], [facility] HOSPITALNucleated RBC/100 WBC (Bld) [Ratio]0 %Normal0-0The [facility] Medical CenterComment on above:Order Comment: No: Do not add to previous drawPerformed By: #### 34480 #### [facility] [address] [facility] [place] [address], USAPLAT [id number] 10*3/zSElfcqu248-120Sqx [facility] CenterComment on above:Order Comment: No: Do not add to previous draw Performed By: #### 34445 #### [facility] [address] [place] [id number], [facility]LEY HOSPITALRBC (Bld) [#/Vol]3.69 10*6/uLLow3.80-5.00The [facility] Medical CenterComment on above:Order Comment: No: Do not add to previous drawPerformed By: #### 65266 #### [facility] [address] [place] [address], USAWBC (Bld) [#/Vol]16.41 10*3/uLHigh4.00-10.60The [facility] Medical CenterComment on above:Order Comment: No: Do not add to previous drawPerformed By: #### 29947 #### [address] [address], USACT UPPER EXTREMITY WO CONTRAST RIGHTon 32-57-0238LM UPPER EXTREMITY WO CONTRAST RIGHTSumma Health Wadsworth - Rittman [facility] Center Department of Radiology [address] [place] [phone] Patient Name: MARYAM ADAM : 1955 Sex: F Age: Race: White Pt. Location: [id number] Patient Status: I Ordered Date: 08/23/2018 8:45:00 AM Completed Date: 08/23/2018 12:57 PM Requesting Provider: IKE MORLEY Attending Provider: KRISHNA COLLINS Report Copy To: Signs & Symptoms: Fracture [...] fracture Electronically signed by:Chandni Odonnell. Transcribed by: [email or web address], User Resident: Electronically Signed by: CHANDNI ODONNELL @ 08/23/2018 01:20 PMNormalGalion Community HospitalComment on above:Order Comment: R/O Fractures, Right shoulder CT scan to evaluate fx patternConsultationon [id number]#: [id number] [facility] Pt. Name: Maryam Adam Date of Service: 08/23/2018 Room #: [id number] Birthdate: 1955 Referring Physician: CONSULTATION HISTORY OF [...] to 0.5% for any cardiac or non-fatal MT and I feel very comfortable to just [...] Mchugh MD Date Trans: 08/23/2018 09:21 P/macho DN_JN:[id number] cc: Lala Goncalves M.D. [address] [id number] Wiliam Kemp R Physicawilda...do Not Send [address] [place] [id number] Memorial HospitalPORTABLE SHOULDER RIGHT 2 Son [id number] SHOULDER RIGHT 2 [facility] Department of Radiology [address] [place] [id number] Patient Name: MARYAM ADAM : 1955 Sex: F Age: Race: White Pt. Location: [facility] Patient Status: I Ordered Date: 08/23/2018 1:40:00 AM Completed Date: 08/23/2018 07:48 AM Requesting Provider: OCTAVIO SHRAMA Attending Provider: OCTAVIO SHARMA Report Copy To: Signs & Symptoms: Post Reduction History: Patient history not available Comments: R/O Dislocation, 3 views; Grashey, scapular Y, and axillary (or velpeau if cannot obtain satisfactory axillary) Exam: PORTABLE SHOULDER RIGHT 2 [facility] PORTABLE SHOULDER RIGHT 2 S 08/23/2018 7:48 [...] Bankart Electronically signed by:Chandni Odonnell. Transcribed by: [email or web address], User Resident: Electronically Signed by: CHANDNI ODONNELL @ 08/23/2018 09:02 AMNormalThe [facility] - Rittman Medical CenterComment on above:Order Comment: R/O Dislocation, 3 views; Grashey, scapular Y, and axillary (or velpeau if cannot obtain satisfactory axillary)PROTHROMBIN TIMEon 39-00-7338QHE Coag (PPP) [Relative time]0.97 {INR}Normal0.91-1.16The [facility] - Rittman Medical CenterComment on above:Order Comment: No: Do not add to previous drawResult Comment: ACCCP RECOMMENDED INR FOR WARFARIN THERAPY ------- CONDITION INR PROPHYLAXIS OF VENOUS THROMBOSIS 2-3 (HIGH-RISK SURGERY) TREATMENT OF VENOUS THROMBOSIS 2-3 TREATMENT OF PULMONARY EMBOLISM 2-3 PREVENTION OF SYSTEMIC EMBOLISM: 2-3 ACUTE MYOCARDIAL INFARCTION TISSUE HEART VALVES VALVULAR HEART DISEASE ATRIAL FIBRILLATION RECURRENT SYSTEMIC EMBOLISM MECHANICAL HEART VALVE 2.5-3.5 FROM: ORAL ANTICOAGULANTS. MECHANISM OF ACTION, CLINICAL EFFECTIVENESS, AND OPTIMAL THERAPEUTIC RANGE. CHEST 1995;108:231S-246S.Performed By: #### [id number] #### [facility] [address] [place] [address], [place] Coag (PPP) [Time]12.9 oGveesc81.3-14.8The [facility] Rittman Medical CenterComment on above:Order Comment: No: Do not add to previous drawResult Comment: ALL RESULTS MUST BE INTERPRETED WITH RESPECT TO BLOOD DRAWING ARTIFACT OR DILUTION ERROR OF ANTICOAGULANT AT THE TIME OF SAMPLING.Performed By: #### [id number] #### [address] [address], [place] [id number] [facility] Department of Radiology [address] [place] [address] Patient Name: MARYAM ADAM : 1955 Sex: F Age: Race: White Pt. Location: [id number] Patient Status: I Ordered Date: 08/23/2018 2:10:00 PM Completed Date: 08/23/2018 04:30 PM Requesting Provider: KRISHNA COLLINS Attending Provider: KRISHNA COLLINS Report Copy To: Signs & Symptoms: RIGHT SHOULDER CLOSED VS. OPEN REDUCTION History: RIGHT SHOULDER CLOSED VS. OPEN REDUCTION Comments: RIGHT SHOULDER CLOSED VS. OPEN REDUCTION Exam: SHOULDER RIGHT SHOULDER RIGHT 08/23/2018 4:30 PM EDT SIGNS AND SYMPTOMS: RIGHT SHOULDER CLOSED VS. OPEN REDUCTION TECHNOLOGIST COMMENTS: right shoulder closed reduction Dr. [place] 9 seconds fluoro time QUESTION FOR THE RADIOLOGIST: RIGHT SHOULDER CLOSED VS. OPEN REDUCTION PROTOCOL: AP,Grashey and Axillary views were obtained. COMPARISON: None FINDINGS: Dictation for documentation purposes only. IMPRESSION: Dictation for documentation purposes only. Approved by:Damián Clark on 08/23/2018 5:59 PM EDT. I, Dustin Rowe, have reviewed the images and report and concur with these findings. Electronically signed by:Dustin Rowe. Transcribed by: [email or web address], User Resident: DAMIÁN CLARK Electronically Signed by: DUSTIN ROWE @ 08/24/2018 05:40 PM I personally read this/these film(s) with this residentClinton Memorial HospitalComment on above:Order Comment: RIGHT SHOULDER CLOSED VS. OPEN REDUCTIONTYPE AND SCREENon 88-05-9472YRL INTERPRETATIONONoWhite HospitalComment on above:Performed By: #### [id number] #### [facility] [address] [place] [address], [facility]OSPITALRH INTERPRETATIONPositiveClinton Memorial HospitalComment on above:Performed By: #### [id number] #### [facility] [address] [place] [address], [facility] Vital Signs Date TimeVital SignValuePerforming RfedxnapcZzqkbahy78-72-3005 13:24-0400Body mass index (BMI) [Ratio]32.28 kg/q3MiiptyIraida Carrillo MD Work Phone: [facility] CenterJsldfcowpl60-27-2405 13:24-0400Body hvybcf61 kg Iraida Carrillo MD Work Phone: [facility] CenterWjqnvjvpnj84-67-8966 13:24-0400Diastolic blood iwvkndqg97 mm[Hg]Iraida Carrillo MD Work Phone: [facility] CenterSxhjcljdnr55-02-0691 13:24-0400Systolic blood mm[Hg]Iraida Carrillo MD Work Phone: [facility] CenterRqkafoxhjf71-25-9748 10:48-0400Body .1 Starr Carrillo MD Work Phone: [phone] [place], [place] [address]Icxclhwtgh76-46-5267 10:48-0400Body mass index (BMI) [Ratio]32.78 kg/x0OluecjIraida Carrillo MD Work Phone: [facility] CenterGekhxewsha03-72-4953 10:48-0400Body plakwx25.36 kgIraida Carrillo MD Work Phone: [phone]-[facility] CenterUaxtztvyoq63-25-3705 10:48-0400Diastolic blood caerhggl50 mm[Hg]Iraida Carrillo MD Work Phone: [phone]-[facility]inK[place] [address]Ozbljbamxt06-15-8821 10:48-0400Systolic blood wjjnizjy391 mm[Hg]Iraida Carrillo MD Work Phone: [phone])[facility] CenterDchqenhizu36-19-9795 13:07-0400Body .1 Starr Carrillo MD Work Phone: [phone]-[facility] CenterCwuzyqpywq99-64-9315 13:07-0400Body mass index (BMI) [Ratio]32.78 kg/f6FguembIraida Carrillo MD Work Phone: [phone])[facility] [place], [place] [address]Niofzwsstm61-87-9792 13:07-0400Body kvhayv82.36 kgIraida Carrillo MD Work Phone: [phone]-[facility] CenterZxavjzpnqe32-90-2176 13:07-0400Diastolic blood orvbuhua69 mm[Hg]Iraida Carrillo MD Work Phone: [phone]-[facility] CenterXlitpeyzmf91-05-9367 13:07-0400Systolic blood gbecktta147 mm[Hg]Iraida Carrillo MD Work Phone: [facility] CenterLsdkqpfedx11-60-2710 15:01-0500Blood Pressure LocationMichael NILL [facility]-14-2023 15:01-0500Diastolic blood ofgwlcsu67 mm[Hg]Eron NILL [place] [address]-14-2023 15:01-0500Heart rate 70 /minMichael NILL [place] [address]-14-2023 15:01-0500 Respiratory rate16 /minMichael NILL [place] [address]-14-2023 15:01-0500Systolic blood owugetmd134 mm[Hg]Eron NILL [facility] Encounters Encounter DateEncounter TypeCare ProviderFacilityStart: 08-13-2025 End: 74-93-6007Shxihf Radha Carrillo MD Work Phone: no [place] OBGYNComment on above:Abnormal ultrasound of breast (Primary Dx)Start: 08-12-2025 End: 49-93-3356bewrfearggCAAUOQ P JONESNot AvailableStart: 07-28-2025 End: 42-27-4364hlnrmvtesaIHTVCF P JONESNot AvailableStart: 07-28-2025 End: 92-09-7676Ossolw outpatient visit 15 minutesIraida Carrillo MD Work Phone: no [place] OBGYNComment on above:Vaginitis and vulvovaginitis; Cystocele with rectocele; Urinary incontinence, unspecified type; Postmenopausal atrophic vaginitisStart: 07-18-2025 End: 88-76-3393Oblrgttde encounterIraida Carrillo MD Work Phone: no [place] OBGYNStart: 07-07-2025 End: 18-47-6034Grgdsl outpatient visit 15 minutesIraida Carrillo MD Work Phone: noms [place] OBGYNComment on above:Acute vaginitis (Primary Dx); Urinary incontinence, unspecified type; Rectocele; Cystocele with rectocele; Vaginitis and vulvovaginitis; Postmenopausal atrophic vaginitisStart: 07-07-2025 End: 15-75-5309cmniaicyvcHEVVKK P JONESNot AvailableStart: 06-20-2025 End: 72-00-2492Hopbwb Radha Carrillo MD Work Phone: no [place] OBGYNComment on above:Acute vaginitis (Primary Dx)Start: 06-16-2025 End: 26-64-9632Ctfonfm encounter procedureIraida Carrillo MD Work Phone: no [place] OBGYNComment on above:Encounter for gynecological examination; Mass of breast, unspecified laterality; Breast tenderness; Hard stool; Vaginal burning; Urinary incontinence, unspecified type; Vaginitis and vulvovaginitis; Encounter for gynecological examination without abnormal findingStart: 06-16-2025 End: 09-67-8507Ckzdhyc encounter statusIraida Carrillo MD Work Phone: [facility] HealthcareStart: 06-16-2025 End: 13-79-4175meuhvjwwonVAYIZL P JONESNot AvailableStart: 05-23-2024 End: 34-62-7525Dlltkgeina hospital visit by physicianElizabeth Flores MD Work Phone: mthz LaboratoryComment on above:Bilateral lower abdominal painStart: 05-23-2024 End: 89-18-8132unjdtqvnomVWEWDWFawn Lorenzana HospitalStart: 05-14-2024 End: 10-32-5082zkgecsgwtgIFTLKNFawn Lorenzana HospitalStart: 05-14-2024 Encounter for gynecological examination (general) (routine) without abnormal findingsELIZABETH Avendañofin HospitalStart: 05-14-2024 End: 48-99-7649Qdkfaho encounter statusLala Goncalves MD Work Phone: bon [facility] HOSPITALStart: 05-14-2024 End: 51-50-8032Hvnlxfhojt hospital visit by physicianLala Goncalves MD Work Phone: mthz LaboratoryComment on above:Encounter for routine gynecologic examination in Medicare patientStart: 10-10-2023 End: 28-02-9086ecvtntclncMuwrhtz R NILLFacility: Darricktart: 10-10-2023 End: 29-46-5786Ttgskgk encounter procedureMichael R NILL General Surgery Nill/Said Brennen Start: 09-27-2023 End: 98-68-4080espzdacjjwUetianh R NILLFacility:CD:[id number]: 09-05-2023 End: 73-60-0906fpoydberpiMxadkox R NILLFacility: DarrickueStart: 09-05-2023 End: 89-75-9296Xrvkjmt encounter procedureMichael R NILL General Surgery Nill/Said [place] Start: 30-57-2169zxweyoaaqhOeswecb R NILLFacility:GS BellevueStart: 09-21-2022 End: 85-34-1834kdbbeeqtgqMR LALA HOYFacility:X6Votph: 08-22-2022 End: 67-72-3919Ubqpcrg encounter procedureLala Goncalves MD Work Phone: mthz LaboratoryStart: 08-22-2022 End: 18-04-2044Pzgwixxfka hospital visit by physicianLala Goncalves MD Work Phone: mthz LaboratoryComment on above:Women's annual routine gynecological examinationStart: 05-02-2022 End: 19-46-2395aahqfkuokuOB LALA HOYFacility:Y1Gksey: 98-55-9074qbcrahjkogEQ LALA HOYFacility:F1Zhbkq: 04-20-2020 End: 80-07-7149Jyrtvvivqo hospital visit by physicianLala Shaffer Laboratory Comment on above:Encounter for well woman exam with routine gynecological exam Start: 08-02-2019 End: 38-11-5490Xebxinvneg and management of inpatientOSAMA ELATTARFacility:[facility] Start: 11-27-2018 End: 12-17-7246Jwforit encounter procedureOSAMA ELATTARFacility:[facility]ENTERtart: 08-23-2018 End: 99-55-3901Hvxwwohbos and management of inpatientMARK SMITHFacility:[facility] Procedures DateProcedureProcedure DetailPerforming ClinicianStart: 46-11-4216Txoaxbxnnfm Iraida Carrillo MD Work Phone: start: 39-34-0406SOBFORK MYCOPLASMAS JOSE DAVID, SWABIraida Carrillo MD Work Phone: start: 18-94-8738Vpvrk chlamydia trachomatis amplified probe tqIraida Carrillo MD Work Phone: start: 25-59-9321WBH, APT HPV,RFX 16/18,45Iraida Carrillo MD Work Phone: start: 50-11-0299Lefvxhdulo microscopic onlyElizabeth Flores MD Work Phone: Start: 09-28-5956Aikyh dip stick/tablet rgnt auto w/o microscopyElizabeth Flores MD Work Phone: Start: 69-00-9660Crjyxpsjnosbp metabolic panelElizabeth Flores MD Work Phone: Start: 14-06-5517SdzjcioumorNotixv Jones MD Work Phone: start: 79-07-6004TnzvyrzkcqrNwssmfk NILL Start: 39-15-2327UAOGTJBFMEOS OF INFLUENZA VACCINE INTO MUSCLE, PERC APPROACHOSAMA ELATTARStart: 54-77-8680ZMWDQQD OF R SHOULDER JT WITH REV BL \T\ SOCKT, OPEN APPROACHOSAMA ELATTARStart: 31-93-7683HARHZT SURGERY OF SHOULDERKIMBERLY Kari REDStart: 75-53-8735BVUULBCPIFL BICEPS TENODESISOSAMA ELATTARStart: 53-30-7624URDXFH ROTATOR CUFF ACUTEOSAMA ELATTARStart: 08-23-2018 Antibody screenOSAMA ELATTARComment on above:Performed By: #### [id number] #### [facility] [address] [place] [address], USAStart: 33-79-1438HJLRLZLNID RIGHT SHOULDER JOINT, EXTERNAL APPROACHOSAMA ELATTARStart: 50-41-3785OferyjzelshOibcgq Jones MD Work Phone: start: 63-18-7169DohdebolrrmuZmudbsf NILL Comment on above:Jonel MemorialArthroplasty of right shoulderMichael NILL ColonoscopyMichael NILL ColonoscopyMichael NILL Comment on above:x 2 ([facility])Repair of musculotendinous cuff of shoulderMichael NILL TonsillectomyMichael NILL Vaginal hysterectomyMichael NILL Plan of Treatment DateCare ActivityDetailAuthorStart: 14-54-1246Hkezubnfs for malignant neoplasm of colonNONM HealthcareStart: 52-02-5508Debnnabkn for malignant neoplasm of colonBUCHANAN GENERAL HOSPITALStart: 08-13-2026 End: 55-60-1999XR Breast - leftLeft breast US complete Imaging Routine Abnormal ultrasound of breast Expected: 08/13/2026, Expires: 11/13/2026[facility] Work Phone: comment on above:Expected: 08/13/2026, Expires: 11/13/2026Start: 84-82-7937Suatdzpil for malignant neoplasm of breastMammogram [facility] HealthcareStart: 06-18-2026 End: 51-10-6026Jevhdgz encounter uahpeevbc33/27/2026 1:45 PM EDT Office Visit PAM DIAZ [address] [place] [address] Iraida Carrillo MD [address] [place] [address] PAM [place] OBGYNStart: 08-12-2025 End: 03-17-2238Uhiejrfyykww / ancillary services managementNOMS Zee Women's ImagingStart: 07-28-2025 End: 33-35-4324Rwksdyn encounter yosozxooe29/06/2025 1:15 PM EDT Office Visit PAM DIAZ [address] [place] [address] Iraida Carrillo MD [address] [place] [address] PAM [place] OBGYNStart: 07-07-2025 End: 79-35-0306Uazzffp encounter rmfjpsnie85/15/2025 10:45 AM EDT Office Visit ISAACAlana JonesCorvallismary lou DIAZ [address] [place] [address] Iraida Carrillo MD [address] [place] [address] NOMAlana Zee OBGYNStart: 02-06-8549Esupuoxod vaccinationInfluenza Vaccine (#1)[facility] HealthcareStart: 06-16-2025 End: 43-39-5639FJU Breast - bilateral diagnosticBilateral diagnostic mammogram with tomosynthesis Imaging Routine Mass of breast, unspecified laterality Breast tenderness Expected: 06/16/2025, Expires: 08/16/2026[facility] Work Phone: comment on above:Expected: 06/16/2025, Expires: 08/16/2026Start: 06-16-2025 End: 69-24-0390JX Breast - bilateralBilateral breast US complete Imaging Routine Mass of breast, unspecified laterality Breast tenderness Expected: 06/16/2025, Expires: 08/16/2026[facility] HealthcareComment on above:Expected: 06/16/2025, Expires: 08/16/2026Start: 48-57-1421Kiddfudwb vaccinationFlu vaccine (#1)[facility]ITALStart: 81-71-0244Docxys Wellness Visit (Medicare Advantage) Annual Wellness Visit (Medicare Advantage)[facility]Start: 09-21-2023 End: 59-07-7533Wayqbgv encounter tktiasnwq36/30/2023 Office Visit Obstetrics and Gynecology Elizabeth Flores MD [address] [place] [address] [facility]: 08-24-2023 End: 56-90-2100Wknrzsb encounter tjslrohbs26/02/2023 Office Visit Obstetrics and Gynecology Elizabeth Flores MD [address] [place] [address] [facility]: 24-15-4006FKNHN-19 Vaccine ( season)COVID-19 Vaccine ( season)[facility]ITALStart: 38-33-5660Ahgyteyzw for malignant neoplasm of breastBreast cancer screenBON [facility]: 58-71-0423Mliepzzep vaccinationFlu vaccine (#1)[facility]: 82-00-3281FGWJR-19 Vaccine (5 - Booster for Pfizer series)COVID-19 Vaccine (5 - Booster for Pfizer series)[facility] Start: 27-93-4192Sbxzczkepysn 65+ years Vaccine (2 - PPSV23 if available, else PCV20)Pneumococcal 65+ years Vaccine (2 - PPSV23 if available, else PCV20)[facility]: 12-31-2768Qplqxnndxppt 65+ years Vaccine (2 of 2 - PPSV23 or PCV20)Pneumococcal 65+ years Vaccine (2 of 2 - PPSV23 or PCV20)[facility]ITALStart: 31-26-4108Zlgvssbvtfxv Vaccine: 65+ Years (2 of 2 - PCV20 or PCV21)Pneumococcal Vaccine: 65+ Years (2 of 2 - PCV20 or PCV21)[facility] HealthcareStart: 32-43-3387Cyvznoxuaffk Vaccine: 65+ Years (2 of 2 - PPSV23) Pneumococcal Vaccine: 65+ Years (2 of 2 - PPSV23)[facility] HealthcareStart: 39-07-7685Bowdctroo vaccinationFlu vaccine (Season Ended)[place], [place] Start: 13-12-9052Mozpzbtpo for malignant neoplasm of cervixCervical cancer screenForestville, [place]Start: 52-83-4237Tfqzfkdmw for malignant neoplasm of breastNOMS HealthcareStart: 01-29-2430Ioejetspr for osteoporosisDEXA (modify frequency per FRAX score)[facility]ITALStart: 30-37-4086Mtfirwjyi for malignant neoplasm of colonColon cancer screen colonoscopyForestville, [place] Start: 86-73-2442Sssodppo Vaccine (1 of 2)Shingles Vaccine (1 of 2)[facility] Centerart: 31-27-0145Scwwbolez for malignant neoplasm of colonBON [facility]: 15-35-4333Zvkqfhcb screenDiabetes screenSelect Medical Specialty Hospital - Southeast Ohioart: 70-45-7357Rzroumru screenDiabetes [facility] Start: 05-70-7023TZlT/Tdap/Td vaccine (1 - Tdap)DTaP/Tdap/Td vaccine (1 - Tdap) [facility] Centerart: 71-13-0535Xyuwdkmmr C screeningHepatitis C screen [facility]: 84-88-4389OIT screeningHIV screenSelect Medical Specialty Hospital - Southeast Ohioart: 54-76-9408Arggvclady ScreenDepression ScreenHenrico [facility]' [facility]: 46-42-0399Ykizs panelBON [facility]: 1955 Creatinine measurementCreatinine monitoringKindred Hospital Lima: 1955 Hepatitis C screeningHepatitis C screenKindred Hospital Lima: 1955 Potassium monitoringPotassium [facility]: 1955 Screening for malignant neoplasm of colonNOChildren's [facility]cy [facility] End: 04-38-6088Xgabhhawqgmib procedure, preparation of smear, genital sourcePAP SMEAR Lab Routine Encounter For Well Woman Exam With Routine Gynecological Exam 1 Occurrences starting 04/20/2020 until 04/20/2020[place], [place]Comment on above:1 Occurrences starting 04/20/2020 until 04/20/2020 End: 64-54-3505Zvkpprqprflom procedure, preparation of smear, genital sourcePAP SMEAR Lab Routine Women's annual routine gynecological examination 1 Occurrences starting 08/22/2022 until 2[facility] [employer] Work Phone: comment on above:1 Occurrences starting 08/22/2022 until 08/22/2022 End: 67-20-7025Xjdcjgegeinhe procedure, preparation of smear, genital sourcePAP SMEAR Lab Routine Encounter for routine gynecologic examination in Medicare patient 1 Occurrences starting 05/14/2024 until 05/14/2024ON [facility]OS[facility]ITALComment on above:1 Occurrences starting 05/14/2024 until 05/14/2024GENITAL MYCOPLASMAS JOSE DAVID, SWABGENITAL MYCOPLASMAS JOSE DAVID, SWAB Pathology and Cytology Routine Vaginitis and vulvovaginitis Ordered: 07/07/2025[facility] CenterComment on above:Ordered: 07/07/2025GENITAL MYCOPLASMAS JOSE DAVID, SWABGENITAL MYCOPLASMAS JOSE DAVID, SWAB Pathology and Cytology Routine Vaginitis and vulvovaginitis Ordered: 1 [facility] Healthcare Work Phone: comment on above:Ordered: 07/28/2025NuSwab Vaginitis Plus (VG+)NuSwab Vaginitis Plus (VG+) Microbiology Routine Vaginitis and vulvovaginitis Ordered: 07/07/2025[facility] Work Phone: comment on above:Ordered: 07/07/2025 Immunizations Immunization DateImmunizationNotesCare EniozviwSmhqtvzh52-78-2879jwstclnio virus vaccine, unspecified formulationIraida Carrillo MD Work Phone: [facility] CenterBetqqmhquz19-87-5754uktgggctc virus vaccine, unspecified formulationMichael NILL [facility] Qmbxifxh25-54-1120ygrtamxlj virus vaccine, unspecified formulationMichael NILL [facility] Ybldmhxw55-86-0218IJSB-RiT-1 (COVID-19) mRNAMUL.ORD!y93627Tuvgdyw NILL [facility] Tbjwcnec18-53-6835HJQN-XuG-9 mRNA (zrgwewiipwk-fnta-kmmvyrd) vaccineMichael NILL [facility] Unkugbhp30-36-7027KNUU-KxE-3 (COVID-19) mRNA BNT-162b2 vaxMichael NILL [facility]uraComun[facility] on above:Result Comment: 2023-08-31: TJG4579-20-6146EBLX-VkP-8 (COVID-19) mRNA BNT-162b2 vax Eron NILL General Surgery Dfhtmoqn67-45-2147RVZI-LqZ-2 (COVID-19) mRNA BNT-162b2 vaxEron NILL General Surgery [place] Payers DatePayer CategoryPayerPolicy ID2023Medicare (Managed Care)[employer] [id number] [facility] Member Subscriber Plan / Payer (Effective 2020-Present) Name: Maryam Adam MemberID: [id number] Relation to Subscriber: Self Name: Maryam Adam Payer ID: Not on file Type: Not on file Address: [address] [place] [id number]. [id number] BCBS - [place] PPO xxxxxxxxxxxxxxx 2019- Present [address] [place], [place] [address]zybkfktivctaerg [id number] 32-05-5651Ihss-jgb80547[id number] 1.2.840.103788.1.13.239.2.7.3.742147.34766-57-9559LnjhzpsK770672072154-35-6118 [id number] 2.16.840.1.792533.3.57[id number] 2.16.840.1.915149.3.57[id number] 2.16.840.1.637472.3.57[id number] 2.16.840.1.421971.3.57[id number] 2.16.840.1.118177.3.579.[id number] 2.16.840.1.775886.3.57[id number] 2.16.840.1.905502.3.57[id number] 2.16.840.1.796664.3.579.[id number] 2.16.840.1.147660.3.57[id number] 2.16.840.1.876532.3.579.[id number] 2.16.840.1.607963.3.57[id number] 2.16.840.1.709947.3.57[id number] 2.16.840.1.032770.3.579.[id number] 2.16.840.1.422403.3.57[id number] 2.16.840.1.436021.3.579.[id number] 2.16.840.1.010924.3.57[id number] 2.16.840.1.663246.3.57[id number] 2.16.840.1.973879.3.579.2.1259 Social History DateTypeDetailFacilityStart: 04-20-2020 End: 63-29-1486Txbdwxi smoking status NHISNever smokerKindred Hospital Lima: 04-20-2020 End: 20-37-7606Nfwjtnp intakeCurrent drinker of alcohol (finding)[facility]: 46-47-4792Qkp Assigned At BirthNot on fileForestville, [place] Exposure to SARS-CoV-2 (event)Unable to assessKindred Hospital Lima: 94-32-5015Fdaloyg use and exposureSmokeless tobacco non-userBON [facility] Work Phone: start: 63-01-0344Kcdfytw smoking statusNeverGeneral Surgery BellevueStart: 65-19-0095Vqk Assigned At BirthFeOhioHealth Pickerington Methodist Hospitaltart: 70-17-9804Ijkweys of Social functionBON [facility]OS[facility]ITALStart: 69-46-8557Ivxuqfs smoking status NHISTobacco smoking consumption unknownNOMS Healthcare Functional Status HotvDdcneefrxkOuiwolIcmryvwz73-45-5724Tefrzclptu StatusN/AGeneral Surgery [place] Clinical Notes 05-02-2022 to 08-13-2025 Note Date & [id number] History of Present illness Narrative* Iraida Carrillo MD - 08/13/2025 6:19 PM EDT Abnormal ultrasound Repeat 6 months documented in this encounterNortheast [facility] Medical [id number] History of Present illness Narrative* Iraida Carrillo MD - 07/28/2025 1:15 PM EDT Images from the original note were not included. Iraida Carrillo MD Obstetrics and Gynecology Patient: Maryam Adam : 1955 (69 y.o.) Exam Date: 07/28/2025 Reason for Visit - Chief Complaint Patient presents with Pessary Check Patient present for pessary check and reswab for ureaplasma. Patient denies any new issues or concerns. LMP: [employer] 3 week follow-up for pessary question and test of cure, ureaplasma positive on 07/07/25 Vulva feels better with coconut oil History of Present Illness History of Present Illness The patient presents for routine gynecologic follow-up with ongoing concerns related to pelvic organ prolapse and associated symptoms. She continues to experience pain that is alleviated with coconutoil application. The patient reports experiencing internal spasms that are unpredictable in timing,which she finds particularly concerning because she cannot [...] to gross testing, coordination, and gait are normalor at baseline unless noted below. Physical Exam [...] is not currently using a pessary. She experiencesinternal spasms that are unpredictable and painful. She [...] by Iraida Carrillo MD documented in this encounterNortheast Regional Medical [id number] Telephone encounter Note* Telephone Encounter - Iraida Carrillo MD - 07/20/2025 7:50 PM EDT Positive culture [facility] [id number] Miscellaneous Notes* Telephone Encounter - Iraida Carrillo MD - 07/20/2025 7:50 PM EDT Positive culture documented in this encounterNortheast Regional Medical [id number] History of Present illness Narrative* Iraida Carrillo MD - 07/07/2025 10:45 AM EDT Images from the original note were not included. Iraida Carrillo MD Obstetrics and Gynecology Patient: Maryam Adam : 1955 (69 y.o.) Exam Date: 07/07/2025 Reason for Visit - Chief Complaint Patient presents with Pessary Check Patient present for pessary check, patient denies any issues or complaints at this time. 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 [...] to gross testing, coordination, and gait are normalor at baseline unless noted below. Physical Exam [...] examination. The patient also experiences muscle spasms afterwashing, which may be related to the vaginal irritation. - Plan: Imvexxy samples given Vaginal cultures obtained . Vaginal dryness and burning: -: 2. Rectocele: - Assessment: Patient has existing rectocele, which may be contributing to some symptoms. Surgical intervention is a potential option but not immediately necessary. - Plan: a) Defer discussion of surgical intervention for rectocele until vaginal dryness and irritation areresolved b) Reassess need for surgical intervention at follow-up appointment Assessment & Plan Electronically signed by Iraida Carrillo MD documented in this encounterNortheast Regional Medical [id number] History of Present illness Narrative* Iraida Carrillo MD - 06/20/2025 7:23 PM EDT Positive cultures documented in this encounterNortheast Regional Medical [id number] History of Present illness Narrative* Iraida Carrillo MD - 06/16/2025 1:00 PM EDT Images from the original note were not included. Iraida Carrillo MD Obstetrics and Gynecology Patient: Maryam Adam : 1955 (69 y.o.) Exam Date: 06/16/2025 Reason for Visit - Chief Complaint Patient presents with Gynecologic Exam Patient present for yearly, patient denies any issues with breast. Patient has complaints of a prolapse bowel. 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 The patient reports experiencing vaginal dryness, for which she started taking ubcg-llh-qtsiemu pills. While these helped with the dryness, [...] by mouth Daily for 10 days, Disp: 10tablet, Rfl: 1 triamcinolone (Kenalog) 0.1 % cream, [...] to gross testing, coordination, and gait are normalor at baseline unless noted below. Physical Exam [...] rectocele Vaginal dryness Assessment: Patient reports using qaqm-zyf-xautzrd pills for vaginal dryness, which were helpful but resulted in increased blood pressure. Plan: - Reassess vaginal dryness symptoms and treatment options after resolution of vulvovaginal pruritus - Consider alternative treatments for vaginal dryness that do not affect blood pressure Vulvar biopsy of symptoms continue Cultures and Triamcinolone/Flucoazole ordered Assessment & Plan Electronically signed by Iraida Carrillo MD documented in this encounterNortheast Regional Medical [id number] NoteChief Complaint consultation for positive Cologuard HPI Staff 67 year old female presents on consultation from Dr. Goncalves for positive Cologuard. Denies abdominal or rectal pain. No rectal bleeding or change in bowel habits. Denies nausea or vomiting. No unexplained weight loss. Last colonoscopy completed 07/2015 with IBS and internal hemorrhoids. No known family history of colon cancer. History of Present Illness 67 yo female with h/o htn, DMII, hyperlipidemia, peripheral neuropathy, GERD, referred for positiveCologuard; denies change in bms or blood in [...] swallowing difficulties, no hearing loss, no ear infection(s),no nose bleeds. Cardiovascular: normal blood pressure, no [...] of right shoulder, Colonoscopy, Colonoscopy, Rotator cuff repair,Tonsillectomy, VH - Vaginal hysterectomy. Medications carvedilol 6.25 [...] lifetime) Tobacco Use:. Never (more content not included)...Wilson HealthComment on above:Result Comment: Electronically Signed By: YOHANA NARAYAN, Eron Starks\Date and Time Signed: 09/05/23 15:51 [id number] NotePROCEDURE: XR KNEE LT 4V or > COMPARISON: None. HISTORY: Derangement of knee FINDINGS: BONES:No acute fracture or dislocation. Moderate tricompartmental osteoarthropathy most significant in the anterior compartment with joint space narrowing and marginal osteophyte formation. SOFT TISSUES:Negative. No visible soft tissue swelling. EFFUSION:None visible. OTHER: Negative. IMPRESSION: Moderate osteoarthritis Electronically authenticated by: COLLETTE CUMMINGS Date: 2022-05-02 20:56[facility] + Plan note No data available for this section General Surgery [place] Evaluation note* Diagnosis Women's annual routine gynecological examination documented in this encounter [employer] Phone: evaluation note* Diagnosis Encounter for routine gynecologic examination in Medicare patient documented in this encounter [facility]* Diagnosis Bilateral lower abdominal pain Abdominal pain, other specified site documented in this encounter [facility]* Diagnosis Acute vaginitis- Primary Unspecified vaginitis and vulvovaginitis documented in this encounter [facility]* Diagnosis Encounter for gynecological examination Mass of breast, unspecified laterality Breast tenderness Mastodynia Hard stool Vaginal burning Other specified symptom associated with female genital organs Urinary incontinence, unspecified type Vaginitis and vulvovaginitis Encounter for gynecological examination without abnormal finding documented in this encounter [facility]* Diagnosis Acute vaginitis- Primary Unspecified vaginitis and vulvovaginitis Urinary incontinence, unspecified type Rectocele Cystocele with rectocele Vaginitis and vulvovaginitis Postmenopausal atrophic vaginitis documented in this encounter [facility] note* Diagnosis Acute vaginitis- Primary Unspecified vaginitis and vulvovaginitis documented in this encounter [facility] HealthcareEvaluation note* Diagnosis Vaginitis and vulvovaginitis Cystocele with rectocele Urinary incontinence, unspecified type Postmenopausal atrophic vaginitis documented in this encounter [facility] Healthcare[facility] note* Diagnosis Abnormal ultrasound of breast- Primary [facility] No data available for this section General Surgery [place] note No data available for this section General Surgery [place] Summary Purpose Family History No Family History Records FoundNo Family History Records Found No data available for this section No data available for this section No Family History Records FoundNo Family History Records FoundNo Family History Records Found Advance Directives No Advanced Directives Records FoundDocuments on File TypeDate RecordedPatient RepresentativeExplanationAdvance Directives and Living WillPower of Bistro Attendant Hospital Course Note MR#: [id number] [facility] Pt. Name: Maryam Adam Admitted: 08/23/2018 Discharged: 08/24/2018 Date of : 1955 Physician: Krishna Collins MD DISCHARGE SUMMARY DISCHARGE ATTENDING DOCTOR: Krishna Collins MD PRINCIPAL DIAGNOSIS: Right shoulder dislocation. PROCEDURES [...] (more content not included)... Note MR#: [id number] [facility] Pt. Name: Maryam Adam Admitted: 08/02/2019 Discharged: 08/03/2019 Date of : 1955 Physician: Krishna Collins MD DISCHARGE SUMMARY PRINCIPAL DIAGNOSIS: Right shoulder degenerative joint disease. PROCEDURES PERFORMED: Right reverse total shoulder replacement with open biceps tenodesis. COMPLICATIONS: None. CONSULTS: Physical and Occupational Therapy. HOSPITAL COURSE: The patient is a 63-year-old female who presented to [facility] as outpatient with chief complaint of right [...] the above-mentioned procedure. On the day of romero (more content not included)... Assessments Diagnosis Encounter for well woman exam with routine gynecological exam Additional Source Comments INFORMATION SOURCE (unrecogn ized section and content) DATE CREATED AUTHOR 08/20/2019 [facility] DATE CREATED AUTHOR AUTHOR'S ORGANIZ ATION 09/28/2022 [facility] DATE CREATED AUTHOR AUTHOR'S ORGANIZ ATION 10/19/2023 [facility] DATE CREATED AUTHOR AUTHOR'S ORGANIZ ATION 05/27/2024 [facility] DATE CREATED AUTHOR AUTHOR'S ORGANIZ ATION 08/17/2025 [facility] EPIC Care Teams (unrecognized sec tion and content) Team MemberRelationshipSpecialtyStart DateEnd Date Lala Goncalves MD [address] [place] [address] PCP - GeneralFamily Medicine05/17/16Team MemberRelationshipSpecialtyStart DateEnd Date Lala Goncalves MD [address] [place] [address] PCP - GeneralFamily Medicine05/17/16Team MemberRelationshipSpecialtyStart DateEnd Date Lala Goncalves MD [address] [place] [address] PCP - GeneralFamily Medicine05/17/16Team MemberRelationshipSpecialtyStart DateEnd Date Lala Goncalves MD [address] [place] [facility] [address] PCP - [facility] Sxmirjix51/6/25Team MemberRelationshipSpecialtyStart DateEnd Date Lala Goncalves MD [address] [place] [address] PCP - [facility]07/28/25 Reason for Visit (unrecogniz ed section and content) ReasonCommentsGynecologic ExamPatient present for yearly, patient denies any issues with breast. Patient has complaints of a prolapse bowel. LMP: PMPReason CommentsPessary CheckPatient present for pessary check, patient denies any issues or complaints at this time. LMP: PMPReasonCommentsPessary CheckPatient present for pessary check and reswab for ureaplasma. Patient denies any new issues or concerns. 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 [employer] [facility]. provides no warranty or guarantee of the accuracy or completeness of information in this document.
--- NOTE | 2025-08-29 10:25 | PC.NURSE ---
Pt was scheduled for Lexiscan test. Test was cancelled due to pt's BP being out of parameters for the Lexiscan test. I contacted ordering Dr. Dr. Watson to let him know this. Pt is still getting her resting images today and will follow up with Dr prior to getting lexiscan and second set of images done. Pt was fine with this and aware to go to the ER if BP does not come down after taking medications and if she becomes symptomatic to go to the Er. Pt states she understands.
== END 2025-08-29 09:22 | disposition home or self-care (01) ==
LOC: NM 09:22
PROVIDERS: PCP Family Medicine; Visit Provider Family Medicine
DX: R07.9 Chest pain, unspecified (principal)
CPT/HCPCS: 78452; A9500

== ENCOUNTER 2025-09-22 08:50 | Outpatient (OUT) | payer MEDICARE, SELFPAY ==
--- OUTSIDE RECORDS SUMMARY | 2025-09-08 14:40 | XMS_ITS | Encounter Summary ---
Author Organization [facility] Address [address] [place] [address] Care Team Providers Care Elevator Repairer Apprentice Name Role Phone Emmett Watson MD Primary Care Provider Reason for Referral * Imaging (Routine) - Pending ReviewSpecialtyDiagnoses / ProceduresReferred By ContactReferred To ContactCardiology Diagnoses Resistant hypertension Procedures Vascular US renal artery duplex complete Monique Love MD [address] [facility] [address] [place] [address] Phone: tel: fax: Referral IDStatusReasonStart DateExpiration DateVisits RequestedVisits [id number] Review Perform Procedure * Imaging (Routine) - Pending ReviewSpecialtyDiagnoses / ProceduresReferred By ContactReferred To ContactCardiology Diagnoses OTTO (dyspnea on exertion) Resistant hypertension Procedures Transthoracic echo (TTE) complete Monique Love MD [address] [facility] [address] [place] [address] Phone: tel: fax: Referral IDStatusReasonStart DateExpiration DateVisits RequestedVisits [id number] Review Perform Procedure Reason for Visit * ReasonCommentsNew PatientPatient is here today to establish care with cardiology for hypertension. Patient states she had a stress test and was unable to due testing due to her blood pressure being high. Recent ER for high blood pressureHyperlipidemiaHypertension Encounter Details DateTypeDepartmentCare Team (Latest Contact Info)Tkuirjuijhc45/17/2025 2:40 PM ESTOffice Visit [facility] [address] [place] [address] Monique Love MD [address] [facility] [address] [place] [address] Resistant hypertension (Primary Dx); OTTO (dyspnea on exertion); Pure hypertriglyceridemia; BMI 34.0-34.9,adult; Class 1 obesity due to excess calories with serious comorbidity and body mass index (BMI) of 31.0 to 31.9 in adult Social History Tobacco UseTypesPacks/DayYears UsedDateSmoking Tobacco: NeverSmokeless Tobacco: Never Tobacco Cessation:Counseling Given: Not Answered CommentsUnknownSex and Gender InformationValueDate RecordedSex Assigned at YypghFhvlin03/10/2025 2:30 PM ESTLegal ZpsDnspmv80/30/2022 12:09 AM EDTGender BozkwluyGueqrp29/10/2025 2:30 PM ESTSexual OrientationHeterosexual or Straight 09/01/2025 2:30 PM ESTdocumented as of this encounter Last Filed Vital Signs Vital SignReadingTime TakenCommentsBlood Haiqmjnf658/8609/08/2025 2:44 PM EST Eykjq731409/08/2025 2:44 PM ESTTemperature--Respiratory Rate--Oxygen Sexolhadoo16% 09/08/2025 2:44 PM ESTInhaled Oxygen Concentration--Muneqn85.7 kg (189 lb) 09/08/2025 2:44 PM OUGMgvtoq572.1 cm (5' 5 )09/08/2025 2:44 PM ESTBody Mass Index31.45111/08/2024 2:44 PM ESTdocumented in this encounter Progress Notes * Monique Love MD - 09/08/2025 2:40 PM EST Images from the original note were not included. [facility] Note Reason for cardiology consult: Uncontrolled hypertension Chief Complaint: No complaint HPI: Maryam Adam is a 69 y.o. female with history of hypertension, hyperlipidemia, and hypothyroidism Patient has chronic hypertension however it has been very well-controlled on Coreg 12.5 mg twice daily and lisinopril 40 mg daily. Recently she was checking her blood pressure incidentally and noted that it was very high about 250. She went to the physician office and it was the same. She was sentto the emergency room where she was given some IV medication to bring it down. Later Coreg was increased to 25 mg twice daily that helped a little bit but she continued to have very high blood pressure at times in the 190-220. Recently amlodipine 5 mg was added and she sees that there is some improvement. She denies any chest comfort at rest or with exertion. She admits exertional dyspnea however no recent progression. She denies orthopnea or paroxysmal nocturnal dyspnea or dizziness or palpitation orlegs edema or discomfort on exertion. She reports that she has tightness at the back of her head when blood pressure is elevated, she denies any nausea or vomiting or vision abnormalities or any other neurological symptoms. She denies snoring. She never been told that she stops breathing. She does not feel sleepy or tiredduring the daytime. She reports that she checks her blood pressure about 4 times a day, it is the highest in the morning when she wakes up, she takes all of her medications in the morning and then the blood pressure goes down and the lowest measurement is around 3 PM and then it goes up again. She reports that she cutdown on the salt a lot. She stopped drinking caffeine or alcohol. She never been a smoker. She drinks alcohol occasionally. She denies any illicit drugs Cardiology ROS: GENERAL: Denies fever, chills, night sweats, weight loss. HEENT: Denies changes in vision, photophobia, changes in hearing, epistaxis, oral bleeding. CARDIOVASCULAR: As described above in the history. RESPIRATORY: Denies SOB, coughing, wheezing GI: Denies abdominal pain, nausea/vomiting, heartburn, melena/hematochezia. RENAL: Denies dysuria, hematuria, flank pain. MSK: Denies muscle weakness/pain, arthralgias/joint pain. NEUROLOGIC: Denies LOC, weakness, numbness, headaches. SKIN: Denies abnormal rashes or bleeding. PSYCH: Denies significant anxiety, depression, sleep disturbances. Past Medical History She has a past medical history of Diabetes mellitus (CMS/HCC), Gout, Hyperlipidemia, Hypertension, Hypothyroidism, and IBS (irritable bowel syndrome). Surgical History She has a past surgical history that includes Hysterectomy; Shoulder surgery; Tonsillectomy; and Appendectomy. Social History She reports that she has never smoked. She has never used smokeless tobacco. She reports that she does not use drugs. No history on file for alcohol use. Family History Family History[1] Allergies Patient has no known allergies. Medications Current Medications[2] Last Recorded Vitals Visit Vitals BP 170/86 (BP Location: Right arm, Patient Position: Sitting) Pulse 68 Ht 1.651 m (5' 5 ) Wt 85.7 kg (189 lb) SpO2 96% BMI 31.45 kg/m?? Smoking Status Never BSA 1.98 m?? Physical Examination: GENERAL: alert and oriented x3, well developed, in no acute distress. HEAD: atraumatic, normocephalic. EYES: LOUIS, EOMI. NECK: trachea midline, no JVD present, no carotid bruits present. CARDIAC: S1, S2 present. RRR. No murmur, rubs, or gallops. RESPIRATORY: CTAB, no increased effort of breathing, no rales, rhonchi, or wheezing. ABDOMEN: soft, nontender, nondistended. EXTREMITIES: no lower extremity edema, peripheral pulses are 2+ bilaterally. No rash/skin discoloration present. NEURO: strength/sensation equal and symmetric in bilateral upper and lower extremities. PSYCH: appropriate mood, affect, and judgement. Labs: 06/02/2025 White blood count 10, hemoglobin 11.9, hematocrit 35.3, platelets 304 INR 1.02 Sodium 136, potassium 4.1, BUN 19, creatinine 0.94, GFR 59, glucose 105, calcium 9.5, magnesium 1.9 Total bilirubin 0.4, AST 16, ALT 23, alk phos 97, total protein 7.5, albumin 4 proBNP 649, normal less than 900 High-sensitivity troponin 7.3 and 9.5 TSH 2.2 01/13/2025 Triglycerides 70, cholesterol 179, LDL 91, HDL 74 TSH 2.6, T45.7, free T32.0 Last Images: EKG 06/02/2025 showed sinus bradycardia, heart rate 49 bpm, otherwise normal EKG Chest CTA 06/02/2025 IMPRESSION: No acute pulmonary embolus. Moderate cardiomegaly. Small pericardial effusion. Assessment and Plan: Resistant hypertension, has been difficult to control. She is on amlodipine 5 mg daily, carvedilol 25 mg twice daily, clonidine patch 0.1 mg once a week, lisinopril 40 mg daily Shortness of breath probably due to uncontrolled hypertension Hyperlipidemia, on simvastatin, well-controlled Obesity, BMI 31.45 kg per square meter Anxiety Plan: Continue carvedilol and lisinopril and clonidine at the current dose I will increase amlodipine to 10 mg daily and to take it in the evening with the second dose of carvedilol Low-salt diet Check blood pressure twice daily for 2 weeks and send me the log. The patient was advised to contact me sooner if blood pressure remains above 180 Obtain renal artery artery duplex to evaluate for renal artery stenosis I will obtain echocardiographic study to evaluate shortness of breath Patient was advised that she needs to exercise however should wait till her blood pressure is underbetter control. She also should follow a low calorie low- carb diet in order to lose weight Follow-up with me in 4-week Monique Love MD,FACC [1] Family History Problem Relation Name Age of Onset Heart disease Mother Heart disease Father Heart disease Sister Diabetes type II Brother Cancer Brother Multiple sclerosis Daughter [2] Current Outpatient Medications: amLODIPine (Norvasc) 5 mg tablet, Take 1 tablet by mouth in the morning., Disp: , Rfl: carvedilol (Coreg) 25 mg tablet, Take 1 tablet by mouth Twice daily at 6am and 6pm., Disp: , Rfl: cholecalciferol, vitamin D3, 50 mcg (2,000 unit) capsule, Take 125 mcg by mouth in the morning., Disp: , Rfl: cloNIDine (Catapres-TTS) 0.1 mg/24 hr, Place 1 patch on the skin 1 (one) time per week., Disp: , Rfl: diclofenac (Voltaren) 75 mg EC tablet, Take 75 mg by mouth if needed in the morning and at bedtime., Disp: , Rfl: lisinopril 20 mg tablet, Take 40 mg by mouth in the morning., Disp: , Rfl: pantoprazole (ProtoNix) 40 mg EC tablet, Take 40 mg by mouth in the morning., Disp: , Rfl: PARoxetine (Paxil) 40 mg tablet, Take 40 mg by mouth in the morning., Disp: , Rfl: simvastatin (Zocor) 20 mg tablet, Take 20 mg by mouth in the morning., Disp: , Rfl: zolpidem (Ambien) 10 mg tablet, Take 10 mg by mouth if needed at bedtime., Disp: , Rfl: documented in this encounter Plan of Treatment DateTypeDepartmentCare Team (Latest Contact Info)Pazgeswuvem46/15/2025 3:00 PM ESTOffice Visit [facility] [address] [place] [id number] Monique Love MD [address] [place] [address] [address] [place] [address] NameTypePriorityAssociated DiagnosesOrder ScheduleTransthoracic echo (TTE) completeEchocardiographyRoutine OTTO (dyspnea on exertion) Resistant hypertension Expected: 09/08/2025 (Approximate), Expires: 09/08/2027Vascular US renal artery duplex completeVascular UltrasoundRoutine Resistant hypertension Expected: 09/08/2025 (Approximate), Expires: 09/08/2027documented as of this encounter Visit Diagnoses Diagnosis Resistant hypertension- Primary OTTO (dyspnea on exertion) Other dyspnea and respiratory abnormality Pure hypertriglyceridemia BMI 34.0-34.9,adult Class 1 obesity due to excess calories with serious comorbidity and body mass index (BMI) of 31.0 to 31.9 in adult documented in this encounter Care Teams Team MemberRelationshipSpecialtyStart DateEnd Emmett Watson MD [address] [facility] [address] [address] PCP - GeneralFamily Lcvvavan31/14/25documented as of this encounter
--- OUTSIDE RECORDS SUMMARY | 2025-09-22 08:54 | XMS_ITS | Clinical Summary ---
Author Organization [facility] Address [address] [facility] [place] [address] Care Team Providers Care Register In Chancery Name Role Phone Emmett Watson MD Primary Care Provider [phone] Allergies No known active allergies Medications MedicationSigDispense QuantityRefillsLast FilledStart DateEnd DateStatus triamcinolone (Kenalog) 0.1 % cream Indications:Vaginal burningApply topically in the morning and before bedtime. 30 g 5Active Estradiol (Imvexxy Maintenance Pack) 4 MCG insert Indications:Postmenopausal atrophic vaginitisInsert 1 suppository into the vagina 2 (two) times a week 8 each 5Active Encounters DateTypeDepartmentCare RuqoCmndwqdgbhx21/22/2025Results Follow-Up [facility] [address] [place] [address] Iraida Altamirano MD Bilateral diagnostic mammogram with vjttuaqpdfbju49/22/2025Orders Only [facility] [address] [place] [address] Iraida Altamirano MD Abnormal ultrasound of breast (Primary Dx)08/12/2025 2:30 PM EDTAncillary Procedure [facility] [address] [place] [address] Mass of breast, unspecified laterality; Breast lmdarnsaoa89/21/2025 2:00 PM EDTAncillary Procedure [facility] [address] [place] [address] Mass of breast, unspecified laterality; Breast smtupotxxp78/21/6191Jxnsbq92/13/2025Orders Only [facility] [address] [place] [address] Iraida Altamirano MD Vaginitis and oxcbphpemcchbp28/13/2025Results Follow-Up [facility] G[facility] [address] [place] [address] Iraida Altamirano MD GENITAL MYCOPLASMAS JOSE DAVID, SWAB07/28/2025 1:15 PM EDTOffice Visit [facility] [address] [place] [address] Iraida Altamirano MD Vaginitis and vulvovaginitis; Cystocele with rectocele; Urinary incontinence, unspecified type; Postmenopausal atrophic /06/1262Cdlvay15/29/2025Results Follow-Up [facility] [address] [place] [address] Iraida Altamirano MD NuSwab Vaginitis Plus (VG+), GENITAL MYCOPLASMAS JOSE DAVID, SWAB07/18/2025Telephone [facility] [address] [place] [address] Iraida Altamirano MD 07/07/2025 10:45 AM EDTOffice Visit [facility] [address] [place] [address] Iraida Altamirano MD Acute vaginitis (Primary Dx); Urinary incontinence, unspecified type; Rectocele; Cystocele with rectocele; Vaginitis and vulvovaginitis; Postmenopausal atrophic ynurcnlqy06/15/2025Travelfrom Last 3 Months Social History Tobacco UseTypesPacks/DayYears UsedDateSmoking Tobacco: Unknown Tobacco Cessation:Counseling Given: Not Answered CommentsNoSex and Gender InformationValueDate RecordedSex Assigned at BirthNot on fileLegal KlmVexmgb49/15/2023 7:11 PM EDTGender IdentityNot on file Sexual OrientationNot on file Last Filed Vital Signs Vital SignReadingTime TakenCommentsBlood Ajnnihrg764/7407/28/2025 1:24 PM EDT Pulse--Temperature--Respiratory Rate--Oxygen Saturation--Inhaled Oxygen Concentration--Zklifk91 kg (194 lb)07/28/2025 1:24 PM PWDKhuixu893.1 cm (5' 5 ) 07/07/2025 10:48 AM EDTBody Mass Index32.28007/07/2025 10:48 AM EDT Plan of Treatment DateTypeDepartmentCare Team (Latest Contact Info)Alyyvldwsvh15/27/2026 1:45 PM EDTOffice Visit [facility]AM DIAZ [address] [place] [address] Iraida Altamirano MD [address] [place] [address] Health MaintenanceDue DateLast DoneCommentsCT Bzesihwvffrv1955FIT 1955FOBT1955 8811Zzcqtzmlchyxq1955Pneumococcal Vaccine: 65+ Years (2 of 2 - PCV20 or PCV21)/OVID-19 Vaccine (5 - 2024- season)/10/2021, 08/09/2021, 01/12/2021, Additional history exists Influenza Vaccine (#1)/06/2023, 09/21/2022, 08/09/2021, Additional history ryiblgZcbkjwgxm57/21/202610/, 09/12/2017, 04/24/2014FIT-DNA /5982Pkvmjujkibp38/06/203312/olorectal Cancer Screening 09/27/2033 Procedures Procedure NamePriorityDate/TimeAssociated DiagnosisCommentsBI US BREAST COMPLETE EXNVETYKXYdedtnr62/21/2025 2:48 PM EDT Mass of breast, unspecified laterality Breast tenderness BI MAMMOGRAM DIAGNOSTIC TOMOSYNTHESIS WDJZKVFMLXfvuakp38/21/2025 2:25 PM EDT Mass of breast, unspecified laterality Breast tenderness GENITAL MYCOPLASMAS JOSE DAVID, JMNMUfaazcm04/06/2025 1:29 PM EDT Vaginitis and vulvovaginitis GENITAL MYCOPLASMAS JOSE DAVID, HGZIXdfuyef77/15/2025 4:09 AM EDT Vaginitis and vulvovaginitis NUSWAB VAGINITIS PLUS (VG+)Tieubhe5107/07/2025 4:09 AM EDT Vaginitis and vulvovaginitis from Last 3 Months Results * Bilateral breast US complete (08/12/2025 2:48 PM EDT)Anatomical Region LateralityModalityBreastBilateralUltrasoundSpecimen (Source)Anatomical Location / LateralityCollection Method / VolumeCollection TimeReceived Time 08/13/2025 3:37 PM EDT Impressions 08/13/2025 3:45 PM EDT Impression: Bilateral breast ultrasound study fails to [...] BI-RADS 3 ELECTRONICALLY SIGNED BY: Bonifacio Marks M.D. Narrative 08/13/2025 3:45 PM EDT Examination: BI US BREAST COMPLETE BILATERAL Reason [...] 6 months is recommended to assess stability. Authorizing ProviderResult TypeResult StatusIraida Altamirano MDIMG US PROCEDURES Final Result * Bilateral diagnostic mammogram with tomosynthesis (08/12/2025 2:25 PM EDT) Anatomical RegionLateralityModalityBreastBilateralMammographySpecimen (Source) Anatomical Location / LateralityCollection Method / VolumeCollection Time Received Time08/13/2025 3:23 PM EDT Impressions 08/13/2025 3:46 PM EDT No specific evidence of malignancy seen in [...] Ultrasound in 6 Months Board Certified Radiologists. ??Accredited by the ACR and FDA. MAMMOGRAPHY IS VERY IMPORTANT TO YOUR HEALTH. ??THE [place] [employer] GUIDELINES RECOMMEND THAT WOMEN 40 YEARS OF AGE AND OLDER SHOULD HAVE A MAMMOGRAM EVERY YEAR. A REMINDER LETTER WILL BE SENT AT THE APPROPRIATE TIME. ?? ELECTRONICALLY SIGNED BY: Bonifacio Marks M.D. Narrative 08/13/2025 3:46 PM EDT EXAMINATION: BI MAMMOGRAM DIAGNOSTIC TOMOSYNTHESIS BILATERAL CLINICAL HISTORY: ??Breast tenderness and lumps TECHNIQUE: Diagnostic digital mammogram [...] recommended in 6 months to assess stability. Authorizing ProviderResult TypeResult StatusIraida Altamirano MDIMG BI PROCEDURES Final Result * (ABNORMAL) GENITAL MYCOPLASMAS JOSE DAVID, SWAB (07/28/2025 1:29 PM EDT) Only the most recent of2 resultswithin the time period is included. ComponentValueRef RangeTest MethodAnalysis TimePerformed AtPathologist Signature MYCOPLASMA GENITALIUMNegativeNegativeLABCORPMYCOPLASMA HOMINISNegativeNegative LABCORPUREAPLASMA SPPPositive(A)NegativeLABCORPSpecimen (Source)Anatomical Location / LateralityCollection Method / VolumeCollection TimeReceived Time Vaginal Fluid07/28/2025 1:29 PM EDT1omment:VAGINAL SWAB Print re Narrative [facility] - 07/31/2025 1:07 PM EDT Test(s) 684169-Tumvjchapv hominis JOSE DAVID; 871145-Jyyvvtqrxr spp JOSE DAVID was developed and its performance characteristics determined by [facility]. It has not been cleared or approved by the Food and Drug Administration. Performed at: ??01 - [facility] ??[id number] Facility Planner: Flip Barros MD, Phone: ??[phone] Authorizing ProviderResult TypeResult StatusIraida Altamirano MDLAB CYTOLOGY ORDERABLESFinal ResultPerforming OrganizationAddressCity/State/ZIP CodePhone Number [facility] * NuSwab Vaginitis Plus (VG+) (07/07/2025 4:09 AM EDT)ComponentValueRef Range Test MethodAnalysis TimePerformed AtPathologist SignatureAtopobium VaginaeLow - 0ScoreLABCORPBVAB 2Low - 0ScoreLABCORPMegasphaera 1Low - 0ScoreL[facility] Comment: Calculate total score by adding the 3 individual bacterial vaginosis (BV) marker scores together. ??Total score is interpreted as follows: Total score 0-1: Indicates the absence of BV. Total score ?? 2: Indeterminate for BV. Additional clinical ? data should be evaluated to establish a ? diagnosis. Total score 3-6: Indicates the presence of BV. Gabby Albicans, NAANegativeNegativeLABCORPCandida Glabrata, NAANegative NegativeLABCORPTrich Vag By NAANegativeNegativeLABCORPChlamydia Trachomatis, JOSE DAVID NegativeNegativeLABCORPNeisseria Gonorrhoeae, NAANegativeNegativeLABCORPSpecimen (Source)Anatomical Location / LateralityCollection Method / VolumeCollection TimeReceived TimeVaginal Fluid07/07/2025 4:09 AM EDT07/07/2025 Narrative [facility] - 07/11/2025 6:07 AM EDT Test(s) 716152- Atopobium vaginae; 673441- BVAB 2; 629954- ?Megasphaera 1 was developed and its performance characteristics determined by [facility]. It has not been cleared or approved by the Food and Drug Administration. Test(s) 422550-Yrdngmj albicans, JOSE DAVID; 996351-Ddctina glabrata, JOSE DAVID was developed and its performance characteristics determined by [facility]. It has not been cleared or approved by the Food and Drug Administration. Performed at: ??01 - [facility] [address] ??[id number] Facility Planner: Flip Barros MD, Phone: ??[phone] Authorizing ProviderResult TypeResult StatusIraida Altamirano MDSATANTA DISTRICT H[facility]ITAL MICROBIOLOGY - GENERAL ORDERABLESFinal ResultPerforming OrganizationAddressCity/State/ZIP Code Phone Number [facility] from Last 3 Months Insurance Care Teams Team MemberRelationshipSpecialtyStart Date Emmett Watson MD [address] [place] [address] PCP - GeneralFamily Xkmrjovb78/6/25
--- OUTSIDE RECORDS SUMMARY | 2025-09-22 08:54 | XMS_ITS | Clinical Summary ---
Author Organization [facility] Address [address] [facility], [address] [place] [address] Care Team Providers Care Instrument Tester Name Role Phone Emmett Watson MD Primary Care Provider [phone] Allergies No known active allergies Medications MedicationSigDispense QuantityRefillsLast FilledStart DateEnd DateStatus cyclobenzaprine (FLEXERIL) 10 MG tablet Indications:Routine gynecological afehlyxorir19/24/2014ctive pantoprazole (PROTONIX) 40 MG tablet Indications:Routine gynecological cjxrnwewmji25/11/2014ctive PARoxetine (PAXIL) 40 MG tablet Indications:Routine gynecological bowbkjxxken45/09/2014ctive simvastatin (ZOCOR) 20 MG tablet Indications:Routine gynecological gvxfvszfdum40/09/2014ctive zolpidem (AMBIEN) 10 MG tablet Indications:Routine gynecological pxhjdqixrgf32/16/2014ctive lisinopril (PRINIVIL;ZESTRIL) 20 MG tablet 2 laqaeej5205/04/2016Active carvedilol (COREG) 6.25 MG tablet TAKE 1 TABLET BY MOUTH TWICE A DAY08/01/2022ctive Cholecalciferol (VITAMIN D3) 50 MCG (1999) CAPS TAKE 1 CAPSULE BY MOUTH EVERY DAY08/11/2022ctive diclofenac (VOLTAREN) 75 MG EC tablet Take 1 tablet by mouth 2 times daily as yqnbbk4405/08/2024ctive liothyronine (CYTOMEL) 5 MCG tablet TAKE 2 TABLETS BY MOTUH ON AN EMPTY STOMACH ONCE A DAY03/07/2024ctive levothyroxine (SYNTHROID) 25 MCG tablet Take 1 tablet by mouth Daily Pt unsure of dosageActive Active Problems ProblemNoted DateDiagnosed DateFamily history of breast urtqao6205/25/2019Closed fracture of dvvxziea20/13/2018 Family History Medical HistoryRelationNameCommentsHeart DiseaseFatherHigh Blood PressureFather CancerMaternal AuntOvarianBreast CancerMotherHeart DiseaseMotherHigh Blood PressureMotherBreast CancerNieceRelationNameStatusCommentsFatherDeceasedMaternal AuntAliveMotherDeceasedNieceAlive Social History Tobacco UseTypesPacks/DayYears UsedDateSmoking Tobacco: NeverSmokeless Tobacco: NeverAlcohol UseStandard Drinks/WeekCommentsYes0 (1 standard drink = 0.6 oz pure alcohol)CommentsNoSex and Gender InformationValueDate RecordedSex Assigned at BirthNot on fileLegal NkpXjkgpl81/13/2013 1:12 AM ESTGender Identity Not on fileSexual OrientationNot on file Last Filed Vital Signs Vital SignReadingTime TakenCommentsBlood Didajpzu581/6407 10:14 AM EDT Pulse--Temperature--Respiratory Rate--Oxygen Saturation--Inhaled Oxygen Concentration--Hwvqds71.3 kg (199 lb)05/14/2024 10:14 AM AGAWsdkag325.1 cm (5' 5 )05/14/2024 10:14 AM EDTBody Mass Index33.12005/14/2024 10:14 AM EDT Plan of Treatment Health MaintenanceDue DateLast QrrjFdpklazpOshbyu72/31/1965Depression Screen 1967Hepatitis C ekgfmh8010/22/1973DTaP/Tdap/Td vaccine (1 - Tdap)1974 Cpmcoknfsxf68/31/2000FIT/FOBT: Average risk2000Sigmoidoscopy/CT ebzfdlhwmabh27/31/2000Shingles vaccine (1 of 2)2005DEXA (modify frequency per FRAX score)2010Pneumococcal 50+ years Vaccine (2 of 2 - PCV20 or PCV21)/reast cancer /12/2020, 09/12/2017, 04/24/2014nnual Wellness Visit (Medicare Advantage)10/23/2024Flu vaccine (#1) /06/2023, 09/21/2022, 08/09/2021, Additional history existsCOVID-19 Vaccine ( season)5111/21/2021, 03/23/2022, 08/09/2021, Additional history existsColorectal Cancer Gfoyjf9108/14/2026Fecal-DNA (Cologuard): Average risk61neumococcal 0-49 years Vaccine Uohsmfcfivcg19/17/2021espiratory Syncytial Virus (RSV) or age 60 yrs+ Vnpbzxocj16/09/2023Hepatitis A vaccineAged OutNo longer eligible based on patient's age to complete this topicHepatitis B vaccineAged OutNo longer eligible based on patient's age to complete this topicHib vaccineAged OutNo longer eligible based on patient's age to complete this topicMeningococcal (ACWY) vaccineAged OutNo longer eligible based on patient's age to complete this topicMeningococcal B vaccineAged OutNo longer eligible based on patient's age to complete this topicPolio vaccineAged OutNo longer eligible based on patient's age to complete this topic Procedures Procedure NamePriorityDate/TimeAssociated DiagnosisCommentsMAM SCREENING VBAJZXWJFJmzklnh00/03/2021 from Last 3 Months or Most Recently Relevant to Health Maintenance Results * ARIA Screening Bilateral (08/25/2021)Anatomical RegionLateralityModalityBreast BilateralMammography Narrative Authorizing ProviderResult TypeResult StatusWeava GASCA MAMMOGRAPHY ORDERABLESEdited Result - Final from Last 3 Months or Most Recently Relevant to Health Maintenance Insurance Care Teams Team MemberRelationshipSpecialtyStart DateEnd Date Emmett Watson MD [address] [place] [address] PCP - GeneralFamily Medicine05/17/16
--- OUTSIDE RECORDS SUMMARY | 2025-09-22 08:55 | XMS_ITS | Clinical Summary ---
Author Organization [facility] Address [address] [place] [address] Care Team Providers Care Health Lead Name Role Phone Emmett Watson MD Primary Care Provider [phone] Allergies No known active allergies Medications MedicationSigDispense QuantityRefillsLast FilledStart DateEnd DateStatus diclofenac (Voltaren) 75 mg EC tablet Take 75 mg by mouth if needed in the morning and at bedtime.Active lisinopril 20 mg tablet Take 40 mg by mouth in the morning.Active cholecalciferol, vitamin D3, 50 mcg (2,000 unit) capsule Take 125 mcg by mouth in the morning.2Active pantoprazole (ProtoNix) 40 mg EC tablet Take 40 mg by mouth in the morning.Active zolpidem (Ambien) 10 mg tablet Take 10 mg by mouth if needed at bedtime.04/07/2014ctive cloNIDine (Catapres-TTS) 0.1 mg/[address] 1 patch on the skin 1 (one) time per week.5Active carvedilol (Coreg) 25 mg tablet Take 1 tablet by mouth Twice daily at 6am and 6pm.5Active PARoxetine (Paxil) 40 mg tablet Take 40 mg by mouth in the morning.03/31/2014ctive simvastatin (Zocor) 20 mg tablet Take 20 mg by mouth in the morning.Active amLODIPine (Norvasc) 5 mg tablet Take 1 tablet by mouth in the morning.5Active amLODIPine (Norvasc) 10 mg tablet Indications:Resistant hypertensionTake 1 tablet (10 mg) by mouth once daily as directed. 90 tablet 6Active Active Problems ProblemNoted DateDiagnosed DateDOE (dyspnea on exertion)09/08/2025lass 1 obesity due to excess calories with serious comorbidity and body mass index (BMI) of 31.0 to 31.9 in adult09/08/20254208Kcvspfz41/14/2025Degenerative joint ahklxcm6309/05/20251001Purihtadlt37/14/2025Diverticulosis of sigmoid colon09/05/2025 Fibrocystic disease of ufqcdp9609/05/2025Gout09/05/2025Hiatal wptkwt6709/05/2025 Jkskpihazshknk28/14/2025Hyperplastic rectal polyp09/05/2025Hypertension 09/05/2025IBS (irritable bowel syndrome)09/05/2025Increased liver enzymes 09/05/20251557Rdorated75/14/2025Low back pain ntyaiylb44/14/2025MI 34.0-34.9,adult 09/05/2025Peripheral gusajtzvrq90/14/2025Positive colorectal cancer screening using Cologuard test09/05/2025Screening for malignant neoplasm of colon 09/05/2025Type 2 diabetes osmndfcq52/14/2025Family history of breast cancer 05/25/2019Closed fracture of emgodmqy24/13/2018 Encounters DateTypeDepartmentCare WetdRkjtmxfypov74/17/2025 2:40 PM ESTOffice Visit [facility] [place] [address] [place] [address] Monique Love MD Resistant hypertension (Primary Dx); OTTO (dyspnea on exertion); Pure hypertriglyceridemia; BMI 34.0-34.9,adult; Class 1 obesity due to excess calories with serious comorbidity and body mass index (BMI) of 31.0 to 31.9 in adultfrom Last 3 Months Family History Medical HistoryRelationNameCommentsCancerBrotherDiabetes type IIBrotherMultiple sclerosisDaughterHeart diseaseFatherHeart diseaseMotherHeart diseaseSister RelationNameStatusCommentsBrotherAliveDaughterOtherFatherDeceasedMotherDeceased SisterAlive Social History Tobacco UseTypesPacks/DayYears UsedDateSmoking Tobacco: NeverSmokeless Tobacco: Never Tobacco Cessation:Counseling Given: Not Answered CommentsUnknownSex and Gender InformationValueDate RecordedSex Assigned at HvmrcJkjclp16/10/2025 2:30 PM ESTLegal RfeEufqpv34/30/2022 12:09 AM EDTGender SxnddojhLtbtka42/10/2025 2:30 PM ESTSexual OrientationHeterosexual or Straight 09/01/2025 2:30 PM EST Last Filed Vital Signs Vital SignReadingTime TakenCommentsBlood Lchvrvec502/8609/08/2025 2:44 PM EST Tfbpn017109/08/2025 2:44 PM ESTTemperature--Respiratory Rate--Oxygen Grpbxgokgd82% 09/08/2025 2:44 PM ESTInhaled Oxygen Concentration--Strmig07.7 kg (189 lb) 09/08/2025 2:44 PM DGHKrhdoz783.1 cm (5' 5 )09/08/2025 2:44 PM ESTBody Mass Index31.45111/08/2024 2:44 PM EST Plan of Treatment DateTypeDepartmentCare Team (Latest Contact Info)Dqucddhycqp30/15/2025 3:00 PM ESTOffice Visit [facility] [address] [place] [address] Monique Love MD [address] [place] [address] Health MaintenanceDue DateLast DoneCommentsCT Zsfmxzhkjgxb1955Diabetes: Hemoglobin A1C1955FOBT1955Medicare Annual Wellness (AWV)1955 Xhgljbunesiyh1955Diabetes: Retinopathy Apmjfjdng88/31/1965Depression Sbvaddilg34/31/1967Diabetes: Urine Protein Vttnrcgfb61/31/1974Adult Tetanus 1977Zoster Vaccines (1 of 2)2005Fall Risk Awbxmseyd17/31/2020 Pneumococcal Vaccine: 50+ Years (2 of 2 - PPSV23, PCV20, or PCV21)05/03/2021 03/08/2021FIT41OVID-19 Vaccine ( season)2025 09/21/2022, 03/23/2022, 08/09/2021, Additional history existsInfluenza Vaccine (#1)/06/2023, 09/21/2022, 08/09/2021, Additional history exists FIT-DNA/8209Chqhgrpqt25/21/202710/, 08/25/2021olonoscopy /olorectal Cancer Chcikjflf26/06/2033HIB VaccinesAged OutNo longer eligible based on patient's age to complete this topicHPV VaccinesAged OutNo longer eligible based on patient's age to complete this topicIPV Vaccines Aged OutNo longer eligible based on patient's age to complete this topic Meningococcal B VaccineAged OutNo longer eligible based on patient's age to complete this topicMeningococcal VaccineAged OutNo longer eligible based on patient's age to complete this topicRotavirus VaccinesAged OutNo longer eligible based on patient's age to complete this topic Insurance Care Teams Team MemberRelationshipSpecialtyStart DateEnd Emmett Watson MD [address] [facility] [place] [address] [place] [address] PCP - GeneralFamily Krnkawoj47/14/25
--- OUTSIDE RECORDS SUMMARY | 2025-09-22 08:56 | XMS_ITS | CCD ---
Author Organization [facility] Care Team Providers Care Social Service Liaison Name Role Phone ELATTAR, OSAMA Admitting Unavailable ELATTAR, OSAMA Attending Unavailable LALA GONCALVES Primary Care Unavailable SELF, REFERRED Referring Unavailable [place] Procedure Practitioner Unavailab le KNENETHATTAR, OSAMA Surgeon Unavailable [place] Procedure Practitioner Unavailab AYANNA Back Surgeon Unavailable ADLIENE LIU Referring Unavailable LALA GONCALVES Primary Care Unavailable ELATTAR OSAMA Attending Unavailable ELATTAR, OSAMA Admitting Unavailable [place] Procedure Practitioner Unavailab le ELATTAR, OSAMA Surgeon Unavailable ELATTAR, OSAMA Admitting Unavailable KIMBERLYN, OSAMA Attending Unavailable LALA GONCALVES Referring Unavailable LALA GONCALVES Primary Care Unavailable [place] Procedure Practitioner Unavailab KRISHNA Aguilar Surgeon Unavailable Lala Goncalves Primary Care Provider Lala Goncalves MD Primary Care Provider [phone] DR LALA GONCALVES Attending Unavailable DR LALA [...] Unavailable DR LALA GONCALVES Primary Care Unavailable EMILIANO, DR COLLETTE Romero Consulting Unavailable Lala Goncalves Primary Care Physician [phone] Eron MULLER Attending Unavailable NILLEron R Attending [...] 0.05 mg oral capsule (3 sources)Vitamin DStart: 01-59-7470rrve 1 capsule by mouth once daily Cholecalciferol (VITAMIN D3) 50 MCG (1999 UT) CAPS TAKE 1 CAPSULE BY MOUTH EVERY DAY 0 08/11/2022 Activeclotrimazole 10 mg/ml topical cream (1 source)Azole AntifungalStart: 05-14-2024 End: 63-48-4654jrssbavjjkze (LOTRIMIN AF) 1 % cream Indications: Vulvar irritation Apply topically 2 times daily. 1 each 1 05/14/2024 05/21/2024 Active cyclobenzaprine hydrochloride 10 mg oral tablet (6 sources)Muscle RelaxantStart: 03-41-9929hify 2 tablets by mouth at bedtime cyclobenzaprine 10 mg Tab 20 mg = 2 tab(s), Oral, Bedtime Start Date: 03/17/21 Status: OrderedStart: 92-18-8529sltoxvshwwsbmjp (FLEXERIL) 10 MG tablet diclofenac sodium 75 mg delayed release oral tablet (4 sources)Nonsteroidal Anti-inflammatory DrugStart: 03-80-7211gtgp 1 tablet by mouth twice daily as neededdiclofenac (VOLTAREN) 75 MG EC tablet Take 1 tablet by mouth 2 times daily as needed 0 05/08/2024 ActiveStart: 84-58-3720ndqz 1 tablet by mouth twice dailydiclofenac sodium 75 mg Oral EC Tab 75 mg = 1 tab(s), Oral, BID, Refills(s) 0 Start Date: 08/31/23 Status: Ordereddoxycycline hyclate 100 mg oral capsule (1 source)Tetracycline-class DrugStart: 08-04-2025 End: 10-06-0857vwqsigginxg (Vibramycin) 100 MG capsule Indications: Vaginitis and vulvovaginitis Take 1 capsule (100 mg) by mouth in the morning and 1 capsule (100 mg) before bedtime. Do all this for 10 days. Take with at least 8 ounces (large glass) of water, do not lie down for 30 minutes after. 20 capsule 08/0408/14/2025 Activeestradiol 0.004 mg vaginal insert (6 sources)EstrogenStart: 54-36-2027Ajtpepauk (Imvexxy Maintenance Pack) 4 MCG insert Indications: Postmenopausal atrophic vaginitis Insert 1 suppository into the vagina 2 (two) times a week 8 each 2 07/10/2025 ActiveStart: 07-10-2025 Estradiol (Imvexxy Maintenance Pack) 4 MCG insert Indications: Postmenopausal atrophic vaginitis Insert 1 suppository into the vagina 2 (two) times a week 8 each 2 07/10/2025 ActiveStart: 49-57-6629Igjzmaxps (Imvexxy Maintenance Pack) 4 MCG insert Indications: Postmenopausal atrophic vaginitis Insert 1 suppository into the vagina 2 (two) times a week 8 each 2 07/10/2025 Activelevothyroxine sodium 0.025 mg oral tablet (2 sources)l-Thyroxinetake 1 tablet by mouth once dailylevothyroxine (SYNTHROID) 25 MCG tablet Take 1 tablet by mouth Daily Pt unsure of dosage 0 Active liothyronine sodium 0.005 mg oral tablet (2 sources)l-TriiodothyronineStart: 18-63-9420wfnglvolggzg (CYTOMEL) 5 MCG tablet TAKE 2 TABLETS BY MOT ON AN EMPTY STOMACH ONCE A DAY 0 03/07/2024 Activelisinopril 20 mg oral tablet (6 sources)Angiotensin Converting Enzyme InhibitorStart: 06-93-5507nwtfboauub (PRINIVIL;ZESTRIL) 20 MG tablet 2 tablets 0 05/04/2016 Activelorcaserin hydrochloride 10 mg oral tablet (1 source)Serotonin-2c Receptor AgonistStart: 45-06-0383kpis 1 tablet by mouth twice dailyLorcaserin HCl 10 MG TABS Indications: Obesity (BMI 30.0-34.9) Take 1 tablet by mouth 2 times daily60 tablet 3 04/28/2015 Activepantoprazole 40 mg delayed release oral tablet (6 sources)Proton Pump InhibitorStart: 50-86-9686vimgpftiaruf (PROTONIX) 40 MG tabletPARoxetine hydrochloride 40 mg oral tablet (6 sources)Serotonin Reuptake InhibitorStart: 92-07-5214LQPiqntxwb (PAXIL) 40 MG tabletphentermine hydrochloride 37.5 mg oral tablet (1 source)Sympathomimetic Amine AnorecticStart: 08-22-2022 End: 23-88-5840scif 1 tablet by mouth once daily before breakfastphentermine (ADIPEX-P) 37.5 MG tablet Indications: Obesity (BMI 30.0-34.9) Take 1 tablet by mouth every morning (before breakfast) for 30 days. 30 tablet 0 08/22/2022 09/21/2022 Activesimvastatin 20 mg oral tablet (6 sources)HMG-CoA Reductase InhibitorStart: 99-14-6120lgvbpkalgvj (ZOCOR) 20 MG tabletterconazole 4 mg/ml vaginal cream (2 sources)Azole AntifungalStart: 07-07-2025 End: 70-03-6455kgukeuaxsdc (Terazol 7) 0.4 % vaginal cream Indications: Vulvovaginal Candidiasis Insert 1 applicator into the vagina at bedtime for 7 days 45 g 2 07/07/2025 07/14/2025 Activetriamcinolone acetonide 1 mg/ml topical cream (9 sources)CorticosteroidStart: 87-77-6296igqnrrmlrfpnk (Kenalog) 0.1 % cream Indications: Vaginal burning Apply topically in the morning andbefore bedtime. 30 g 2 06/16/2025 Activezolpidem tartrate 10 mg oral tablet (6 sources)gamma-Aminobutyric Acid-ergic AgonistStart: 65-84-3597kmwcaorq (AMBIEN) 10 MG tablet Completed/Discontinued Medications MedicationDrug Class(es)DatesSig (Normalized)Sig (Original)azithromycin 500 mg oral tablet (4 sources)Macrolide AntimicrobialStart: 07-18-2025 End: 16-92-5519bazy 1 tablet by mouth once dailyazithromycin (Zithromax) 500 MG tablet Indications: Acute vaginitis Take 1 tablet (500 mg) by mouthDaily for 10 days 10 tablet 07/18/2025 07/28/2025 ExpiredStart: 06-20-2025 End: 45-21-4025hurv 1 tablet by mouth once dailyazithromycin (Zithromax) 500 MG tablet Indications: Acute vaginitis Take 1 tablet (500 mg) by mouthDaily for 10 days 10 tablet 1 06/20/2025 06/30/2025 Activefluconazole 150 mg oral tablet (2 sources)Azole AntifungalStart: 06-16-2025 End: 99-72-2858vpfa 1 tablet by mouth oncefluconazole (Diflucan) 150 MG tablet Indications: Vaginal burning Take 1 tablet (150 mg) by mouth 1(one) time for 1 dose 5 tablet 06/16/2025 06/16/2025 Problems Active Problems Problem ClassificationProblemDateDocumented DateEpisodic/ChronicAbdominal hernia (2 sources)Hiatal ogqhpb72-73-5825YfsaueixKtgyqervn pain (3 sources)Right lower quadrant pain; Translations: [Left lower quadrant pain] Onset: 890667-43-6166TelbzxtdDueofwkn reactions (2 sources)Pressure mandserhn88-52-2757RlriglebPezp and rectal conditions (1 source)Rectal polyp; Translations: [Rectal polyp]Onset: 27-75-3940Qyntevhx Anxiety disorders (2 sources)Svqkxgv35-07-8776KdzpkzoLooqdkuj mellitus with complications (1 source)Type 2 diabetes mellitus with hyperglycemia; Translations: [TYPE 2 DM W/HYPERGLYCEMIA]Onset: 68-90-2894SnodhcfVyrudcyc mellitus without complication (2 sources)Type 2 diabetes muskbtxb40-40-4617XbgxkbsZfxjecytz of lipid metabolism (3 sources)Hyperlipidemia, unspecified; Translations: [Hyperlipidemia]Onset: 751283-52-7484FncchmbZhbugqdcbwcgxx and diverticulitis (2 sources)Diverticula of intestine; Translations: [Diverticulosis of large intestine without perforation or abscess without bleeding]Onset: 10-10-2023 ChronicEssential hypertension (2 sources)Hypertensive dogfccqy32-20-4174ImirjcaVapkabhephdne symptoms and ill- defined conditions (6 sources)Urinary incontinence; Translations: [Unspecified urinary incontinence]48-22-8744NshmtyhHwgm and other crystal arthropathies (3 sources)Gout, unspecified; Translations: [Gout]Onset: ChronicInflammatory diseases of female pelvic organs (10 sources)Acute vaginitis; Translations: [Acute vaginitis]14-51-4315Dmbdpxdx Joint disorders and dislocations; trauma-related (4 sources)Unspecified internal derangement of unspecified knee; Translations: [UNS INTERNAL DERANGEMENT UNS KNEE]Onset: 61-37-4202KymkfunFmdvlehjqx disorders (4 sources)Atrophic vaginitis; Translations: [Postmenopausal atrophic vaginitis] 34-20-6157WrzxvzoJmzp disorders (2 sources)Depressive fflzdsos37-87-8930EctutvyTmgkobwurbcc breast conditions (2 sources)Fibrocystic disease of vwwzfe62-80-9357SeaxsoiPgsgdafqtqwt breast conditions (4 sources)Breast lump; Translations: [Unspecified lump in unspecified breast] 39-06-0599PeomlqkwUgqutzjhkia chest pain (2 sources)Chest sqlb05-88-4836EhglbcwyIthhxdmzbsy deficiencies (1 source)Vitamin D deficiency, unspecified; Translations: [VITAMIN D DEFICIENCY UNSPECIFIED]Onset: 01-69-3472GyhpztoSyanvbikehupcl (4 sources)Degenerative joint disease of shoulder region; Translations: [Osteoarthritis]37-10-9315DakqrdyNtadl and unspecified benign neoplasm (1 source)Hyperplastic polyp of large jamsgfytv81-25-3134QsejjlvlTnbuz connective tissue disease (2 sources)Achilles lksovsylql39-45-0354XyvtphmzHvcdt connective tissue disease (2 sources)Muscle fium31-19-9569GxvwlwfbXnebn connective tissue disease (2 sources)Plantar kehxcxikp76-71-8393PemywlbeHmlis female genital disorders (2 sources)Burning sensation of vagina; Translations: [Other specified conditions associated with female genital organs and menstrual cycle]06-16-2025 EpisodicOther gastrointestinal disorders (2 sources)Irritable bowel ussncbyv61-51-0235AjgqyizCnbbw gastrointestinal disorders (1 source)Abnormal feces; Translations: [Other fecal abnormalities]Onset: 47-20-1041ZrpsvkltHdksm gastrointestinal disorders (2 sources)Hard stool; Translations: [Other fecal abnormalities]06-16-2025 EpisodicOther liver diseases (2 sources)Elevated liver enzymes -93-4038BvlwmsjqPcvfs lower respiratory disease (2 sources)Sncqncy30-26-8181MjtzalceYddaa nervous system disorders (2 sources)Peripheral nerve gokiret67-39-7615ZzlfaluIfipk non-traumatic joint disorders (2 sources)Hip mxbe68-68-4908RfggmhtzEzpwp non-traumatic joint disorders (2 sources)Joint iffj81-49-2782NdluqsxgUcbuh non-traumatic joint disorders (2 sources)Pathological dislocation of the shoulder pugye63-29-0328OundcpydKtyew nutritional; endocrine; and metabolic disorders (2 sources)Body mass index 30+ - tytujbu56-70-2112LweylfxMjblr nutritional; endocrine; and metabolic disorders (2 sources)Xehaflo11-79-5675WvmghdaKqezh screening for suspected conditions (not mental disorders or infectious disease) (8 sources)Encounter for screening mammogram for malignant neoplasm of breast; Translations: [Encounter for screening for malignant neoplasm of rectum]Onset: 55-95-3146QdjzdsluMtbfngvz of female genital organs (6 sources)Disorder of rectum; Translations: [Rectocele]58-20-3536Smkzcrb Residual codes; unclassified (1 source)Family history of malignant neoplasm of breast; Translations: [FAMILY HX MALIG NEOPLASM OF BREAST]Onset: 57-45-5068PmynkrowCzlzkjht codes; unclassified (1 source)Family history of malignant neoplasm of trachea, bronchus and lung; Translations: [FAM HX MALIG NEOPLSM TRACH BRON LNG]Onset: 64-41-4941Stpgzlzk Residual codes; unclassified (1 source)Family history of malignant neoplasm of ovary; Translations: [FAM HX MALIGNANT NEOPLASM OVARY]Onset: 48-25-0654TnspcaerToguajvh codes; unclassified (2 sources)Tqtjxgde41-93-0948VgnwyikiHnwykmyfoan; intervertebral disc disorders; other back problems (2 sources)Low back nuvr54-45-8267MuskeahrZdcjdzbsakgm (3 sources)Patient encounter status; Translations: [Encounter for well woman exam with routine gynecological exam]03-22-2021 Past or Other Problems Problem ClassificationProblemDateDocumented DateEpisodic/ChronicDeficiency and other anemia (1 source)Anemia, unspecified; Translations: [ANEMIA UNSPECIFIED]Onset: 09-28-5430SnywcvbtJleoyujn mellitus without complication (1 source)Other abnormal glucose; Translations: [OTHER ABNORMAL GLUCOSE]Onset: 77-95-4124XqhgvcluWeefonlf of upper limb (4 sources)Closed fracture of shaft of humerus; Translations: [Closed fracture of shoulder]Onset: 657816-51-8913GiqzmhzqBcsqb connective tissue disease (1 source)Achilles tendinitis, unspecified leg; Translations: [ACHILLES TENDINITIS UNSPECIFIED LEG]Onset: 21-93-4849TrszusshMnben lower respiratory disease (1 source)Dyspnea, unspecified; Translations: [DYSPNEA UNSPECIFIED]Onset: 44-98-8886RmfafwgtUkysnyol codes; unclassified (1 source)Insomnia, unspecified; Translations: [INSOMNIA UNSPECIFIED]Onset: 66-73-3160ClgfrryeAlhjsanv codes; unclassified (2 sources)Family history of breast cancer; Translations: [Family history of malignant neoplasm of breast]Onset: 749253-76-1803QscwyevrXjilxmtztxtv (2 sources)Rupture of rotator cuff of isxbqeub73-17-0997 Results Test NameValueInterpretationReference RangeFacilityBI MAMMOGRAM DIAGNOSTIC TOMOSYNTHESIS BILATERALon 31-65-4749MB MAMMOGRAM DIAGNOSTIC TOMOSYNTHESIS BILATERALThis is a summary [...] IS VERY IMPORTANT TO YOUR HEALTH. THE [place] [employer] GUIDELINES RECOMMEND THATWOMEN 40 YEARS OF AGE AND OLDER SHOULD HAVE A MAMMOGRAM EVERY YEAR. A REMINDER LETTER WILL BE SENT AT THE APPROPRIATE TIME. ELECTRONICALLY SIGNED BY: Bonifacio Marks M.D.NormalNot AvailableBI US BREAST COMPLETE BILATERALon 80-86-0221MQ US BREAST COMPLETE BILATERALThis is a summary [...] N. gonorrhoeae DNA JOSE DAVID+probe Ql (Vag fld)NegativeNegativeJefferson Memorial HospitalT. vaginalis DNA JOSE DAVID+probe Ql (Vag fld)NegativeNegativeNOSaint John's Aurora Community HospitalUreaplasma sp DNA JOSE DAVID+probe Ql (Unsp spec)PositiveAbnormalNegativeJefferson Memorial HospitalNo Panel Informationon 32-87-6758Vhvxhmqyojcrrg and review of laboratory resultsAbnormal [facility] HealthcareTest(s) 944440-Wfoyhcpaaj hominis JOSE DAVID; 926431-Qhporwcfwv spp JOSE DAVID was developed and [facility] characteristics [facility] It has not been cleared or approved by the Food and Drug Administration. Performed at: - [address] [id number] Helmet Hat Brim Cutter: Flip Barros MD, Phone: [phone]. John's Episcopal Hospital South ShoreTest(s) 503757- Atopobium vaginae; 688924- BVAB 2; 743913- Megasphaera 1 was developed and its performance characteristics determined [facility]. It has not been cleared or approved by the Food and Drug Administration. Test(s) 294992-Sijkipx albicans, JOSE DAVID; 940381-Rkylktn glabrata, JOSE DAVID was developed and its performance characteristics determined by [facility]. It has not been cleared or approved by the Food and Drug Administration. Performed at: - [address] [id number] Hel[employer] Brim Cutter: Flip Barros MD, Phone: [phone]. John's Episcopal Hospital South Shore Laboratory - Cytologyon 90-88-7878Vioudnhawx Cyto stain Nom (Cvx/Vag) [ID] CommentJefferson Memorial HospitalComment on above:Roula Dupree, Practice Support Specialist (ASCP)Cytology report Cyto stain Doc (Cvx/Vag)CommentJefferson Memorial HospitalComment on above:NEGATIVE FOR INTRAEPITHELIAL LESION OR MALIGNANCY.Cytology report Cyto stain.thin prep Doc (Cvx/Vag)CommentJefferson Memorial HospitalComment on above:This liquid based ThinPrep(R) pap test was screened with the use of an image guided system. Statement of adequacy Cyto stain (Cvx/Vag) [Interp]CommentJefferson Memorial HospitalComment on above:Satisfactory for evaluation. No endocervical component is identified. Laboratory - Microbiology and Antimicrobial susceptibilityon 80-46-4106KUT 16+18+31+33+35+39+45+51+52+56+58+59+66+68 DNA Probe+sig amp Ql (Cvx)Negative NegativeNOMD HealthcareComment on above:This nucleic acid amplification test detects fourteen high-risk HPV types (16,18,31,33,35,39,45,51,52,56,58,59,66,68) without differentiation. Microscopic observation Other stain Nom (Unsp spec).[facility] HealthcareLaboratory - Miscellaneous testson 83-33-3808Twsmytx comment (Unsp spec) [Interp]CommentNOMD HealthcareComment on above:The Pap smear is a screening test designed to aid in the detection of premalignant and malignant conditions of the uterine cervix. It is not a diagnostic procedure and should not be used as the sole means of detecting cervical cancer. Both false-positive and false-negative reports do occur. No Panel Informationon 16-38-7393Nmdcidgjf ICD code [Identifier]CommentNOSaint John's Aurora Community HospitalComment on above:Z01.419 Z12.4 Performed at: - [facility] Cyto Histo [address] [place] [id number] Hel[employer] Brim Cutter: Mazin Mcconnell MD, Phone: [phone] Performed at: - [address] [id number] Hel[employer] Brim Cutter: Sophy Dave MD, Phone: [phone] Performed at: 03 - [address] [id number] Hel[employer] Brim Cutter: Sophy Dave MD, Phone: [phone] Specimen Comment: No. of containers..01 ThinPrep VialLABMcLeod Health DillonCT ABDOMEN PELVIS W IV CONTRASTon 92-32-5411XI ABDOMEN PELVIS W IV CONTRAST EXAMINATION: CT [...] by: Ryan Hoyt MD 05/24/24 Final resultNormalMercy Natchaug Hospital with Auto Differentialon 05-23-2024 Basophils (Bld) [...] Immature granulocytes/100 WBC (Bld)0 %0BON [facility] URBANA HOSPITALInterpretation and review of laboratory resultsAbnormalBON MERCY HEALTH URBANA HOSPITALLymphocytes/100 WBC (Bld)28 %24 - 43 %B[facility] URBANA HOSPITALLymphocytes/100 WBC (Bld)2.73 %[facility]OS[facility]ITALH (RBC) [Entitic mass]31.9 pg25.2 - 33.5 pgBON EAST LIVERPOOL CITY HOSPITALHC (RBC) [Mass/Vol]32.4 g/dL28.4 - 34.8 g/dLBON SECSHELBY MEMORIAL HOSPITALV (RBC) [Entitic vol]98.4 fL82.6 - 102.9 fLVIRGINIA HOSPITAL CENTER Monocytes/100 WBC (Bld)6 %3 - 12 %[facility]ENTERMonocytes/100 WBC (Bld)0.62 %[facility] CENTERNeutrophils/100 WBC (Bld)64 %36 - 65 %[facility] CENTERNucleated RBC/100 WBC (Bld) [Ratio]0.0 %0.0 per 100 WBCBON MERCY HEALTH URBANA HOSPITALPlatelet mean volume (Bld) [Entitic vol]8.2 fL8.1 - 13.5 fL [facility] CENTERPlatelets (Bld) [#/Vol]323 10*3/uLVIRGINIA HOSPITAL CENTERRBC (Bld) [#/Vol]3.70 10*6/uLLow3.95 - 5.11 m/uLVIRGINIA HOSPITAL CENTER Segmented neutrophils/100 WBC (Bld)6.29 %[facility] CENTERWBC other (Bld) [#/Vol]9.8BON SECMAYO CLINIC HEALTH SYSTEM– ARCADIACBC with Diffon 78-54-7238Yyv. Basophil0.05 k/uLNormal0.00-0.20MerWaterbury HospitalComment on above:Performed By: #### CP, CDP #### [facility] [address] [place] [address] Hel[employer] Hat Brim Cutter: Sangeeta Butler.Imm.Granulocyte0.03 k/uLNormal0.00-0.30MerCorey Hospital HospitalComment on above:Performed By: #### CP, CDP #### [address] [place], [place] [address] Hel[employer] Hat Brim Cutter: Sangeeta Butler.Neutrophil (Seg)6.29 k/uLNormal1.50-8.10[facility] HospitalComment on above:Performed By: #### CP, CDP #### [address] [place], [place] [address] Hel[employer] Brim Cutter: Collette Zhang MDBasophils/100 WBC (Bld)1 %Normal0-2MBethesda North Hospital HospitalComment on above:Performed By: #### CP, CDP #### [address] [place] [address] Hel[employer] Brim Cutter: Collette Zhang MDEosinophils (Bld) [#/Vol]0.11 10*3/uLNormal 0.00-0.44[facility] HospitalComment on above:Performed By: #### CP, CDP #### [address] [place], [place] [address] Hel[employer] Brim Cutter: Collette Zhang MDEosinophils/100 WBC (Bld)1 %Normal1-4[facility] HospitalComment on above:Performed By: #### CP, CDP #### [address] [place], [place] [address] Hel[employer] Brim Cutter: Collette Zhang MDErythrocyte distribution width (RBC) [Ratio]12.3 % Hphbai01.8-14.4[facility] HospitalComment on above:Performed By: #### CP, CDP #### [address] [place], [facility] Hel[employer] Brim Cutter: Collette Zhang MDHematocrit (Bld) [Volume fraction]36.4 %Normal 36.3-47.1MercKettering Health Main Campus HospitalComment on above:Performed By: #### CP, CDP #### [address] [place], [place] [address] Hel[employer] Hat Brim Cutter: Collette Zhang MDHemoglobin (Bld) [Mass/Vol]11.8 g/dLLow11.9-15.1 [facility] HospitalComment on above:Performed By: #### CP, CDP #### [address] [place], [place] [address] Hel[employer] Hat Brim Cutter: Collette Zhang MDImmature granulocytes/100 WBC (Bld)0 %Mjswpu3NofseThe Bellevue HospitalComment on above:Performed By: #### CP, CDP #### [address] [place], [facility] Hel[employer] Brim Cutter: Collette Zhang MDLymphocytes (Bld) [#/Vol]2.73 10*3/uLNormal 1.10-3.70[facility] HospitalComment on above:Performed By: #### CP, CDP #### [address] [place], [place] [address] Hel[employer] Brim Cutter: Collette Zhang MDLymphocytes/100 WBC (Bld)28 %Toapkm69-45OxuliThe Bellevue HospitalComment on above:Performed By: #### CP, CDP #### [address] [place], [place] [address] Helmet Hat Brim Cutter: VIRGIE ButlerCH (RBC) [Entitic mass]31.9 doTkfmaz50.2-33.5 [facility] HospitalComment on above:Performed By: #### CP, CDP #### [address] [place], [place] [address] Hel[employer] Brim Cutter: VIRGIE ButlerCHC (RBC) [Mass/Vol]32.4 g/iJVybssy12.4-34.8[facility] HospitalComment on above:Performed By: #### CP, CDP #### [address] [place] [address] Hel[employer] Hat Brim Cutter: VIRGIE ButlerCV (RBC) [Entitic vol]98.4 pFOwbmom86.6-102.9 [facility] HospitalComment on above:Performed By: #### CP, CDP #### [address] [place], [facility] Hel[employer] Hat Brim Cutter: VIRGIE Butleronocytes (Bld) [#/Vol]0.62 10*3/uLNormal0.10-1.20 [facility] HospitalComment on above:Performed By: #### CP, CDP #### [address] [place], [place] [address] Helmet Hat Brim Cutter: VIRGIE Butleronocytes/100 WBC (Bld)6 %Normal3-12[facility] HospitalComment on above:Performed By: #### CP, CDP #### [address] [place], [facility] Hel[employer] Brim Cutter: Sabrina Butlerutrophil (Seg)64 %Jmvsyh80-67Zyorl [facility] HospitalComment on above:Performed By: #### CP, CDP #### [address] [place], [place] [address] Hel[employer] Hat Brim Cutter: Collette Zhang MDNRBC Automated0.0 per 100 WBCNormal0.0[facility] HospitalComment on above:Performed By: #### CP, CDP #### [address] [place] [address] Helmet Hat Brim Cutter: MIRNA Butlerlatelet mean volume (Bld) [Entitic vol]8.2 fL Normal8.1-13.5[facility] HospitalComment on above:Performed By: #### CP, CDP #### [address] [place], [place] [address] Helmet Hat Brim Cutter: Earline Butler ([facility]) [#/Vol]323 10*3/jIQvwetj921-646 [facility] HospitalComment on above:Performed By: #### CP, CDP #### [address] [place], [place] [id number] Helmet Hat Brim Cutter: SHARMAINE Butler ([facility]) [#/Vol]3.70 10*6/uLLow3.95-5.11[facility] Hospitalcy [place] HospitalComment on above:Performed By: #### CP, CDP #### [address] [place], [place] [address] Hel[employer] Hat Brim Cutter: KORINA Butler ([facility]) [#/Vol]9.8 10*3/uLNormal3.5-11.3MBethesda North Hospital HospitalComment on above:Performed By: #### CP, CDP #### [address] [place], [place] [id number] Helmet Hat Brim Cutter: MAGNOLIA Butleromp Metabolic Profon 21-78-7649Dnkpdmo [Mass/Vol] 4.4 g/dLNormal3.5-5.2[facility] HospitalComment on above:Performed By: #### CP, CDP #### [address] [place], [place] [address] Hel[employer] Brim Cutter: Collette Zhang MDAlbumin/Glob Ratio1.7Ixgpfi3.0-2.5[facility] HospitalComment on above:Performed By: #### CP, CDP #### [address] [place], [place] [address] Hel[employer] Brim Cutter: Kristyn Butlerkaline Phos95 U/ORoxxxk20-924Dyvxq [facility] HospitalComment on above:Performed By: #### CP, CDP #### [address] [place] [address] Hel[employer] Hat Brim Cutter: Collette Zhang MDALT [Catalytic activity/Vol]17 U/LNormal5-33[facility] HospitalComment on above:Performed By: #### CP, CDP #### [address] [place], [place] [id number] Helmet Hat Brim Cutter: Collette Zhang MDAnion gap [Moles/Vol]10 mmol/LNormal9-17[facility] HospitalComment on above:Performed By: #### CP, CDP #### [address] [place] [address] Helmet Hat Brim Cutter: Collette Zhang MDAST [Catalytic activity/Vol]18 U/LNormal<32[facility] HospitalComment on above:Performed By: #### CP, CDP #### [address] [place], [place] [address] Helmet Hat Brim Cutter: Collette Zhang MDBilirubin [Mass/Vol]0.5 mg/dLNormal0.3-1.2[facility] HospitalComment on above:Performed By: #### CP, CDP #### [address] [place], [place] [address]83 Helmet Hat Brim Cutter: Collette Zhang MDBUN/CRE Jgesu23Cknwzr0-15[facility] Comment on above:Performed By: #### CP, CDP #### [facility] [address] [place] [address] [place] [address] Helmet Hat Brim Cutter: MAGNOLIA Butleralcium [Mass/Vol]9.5 mg/dLNormal8.6-10.4MerWaterbury HospitalComment on above:Performed By: #### CP, CDP #### [address] [place], [place] 9[address]683 Helmet Hat Brim Cutter: MAGNOLIA Butlerhloride [Moles/Vol]97 mmol/WOhz59-634Uwvyq Tiffin HospitalComment on above:Performed By: #### CP, CDP #### [address] [place] [address] Helmet Hat Brim Cutter: MAGNOLIA ButlerO2 [Moles/Vol]28 mmol/EReamge91-13UuimlThe Bellevue HospitalComment on above:Performed By: #### CP, CDP #### [address] [place] [address] Helmet Hat Brim Cutter: MAGNOLIA Butlerreatinine [Mass/Vol]0.9 mg/dLNormal0.5-0.9The [facility] HospitalComment on above:Performed By: #### ANASTACIA, CDP #### [address] [place] [address] Helmet Hat Brim Cutter: Collette Zhang MDGFR/1.73 sq M.predicted among non-blacks MDRD (S/P/Bld) [Vol rate/Area]70 mL/min/{1.73_m2}Normal>60[facility] Comment on above:Result Comment: These results are [...] tubular secretion.Performed By: #### ANASTACIA, CDP #### [address] [place] [address] Helmet Hat Brim Cutter: Collette Zhang MDGlucose [Mass/Vol]105 mg/qVHtgk67-76AvsezBrecksville VA / Crille HospitalComment on above:Performed By: #### ANASTACIA, CDP #### [address] [place] [address] Helmet Hat Brim Cutter: MIRNA Butlerotassium [Moles/Vol]4.8 mmol/LNormal3.7-5.3[facility] HospitalComment on above:Performed By: #### CP, CDP #### [facility] [address] [place] [address] Dr[place], [place] [id number] Helmet Hat Brim Cutter: Collette Zhang MDProtein [Mass/Vol]7.2 g/dLNormal6.4-8.3MBethesda North Hospital HospitalComment on above:Performed By: #### CP, CDP #### [address] [place], [place] [address]183 Helmet Hat Brim Cutter: SUNITHA Butlerodium [Moles/Vol]135 mmol/LBbytzq933-558YepfmThe Bellevue HospitalComment on above:Performed By: #### CP, CDP #### [address] [place], [place] [id number] Helmet Hat Brim Cutter: Collette Zhang MDUrea nitrogen [Mass/Vol]16 mg/dLNormal8-23The [facility] HospitalComment on above:Performed By: #### CP, CDP #### [address] [place], [place] 0[address]383 Helmet Hat Brim Cutter: MAGNOLIA Butleromprehensive Metabolic Panelon 77-41-9269Vzjpzci [Mass/Vol]4.4 g/dL3.5 - 5.2 g/dLBON MERCY HEALTH URBANA HOSPITALAlbumin/Globulin [Mass ratio]1.6 {ratio}1.0 - 2.5BON MER[facility] HE[facility] URBANA HOSPITALALP [Catalytic activity/Vol]95 U/L35 - 104 U/LBON [facility] URBANA HOSPITALALT [Catalytic activity/Vol]17 U/L5 - 33 U/LBON [facility] URBANA HOSPITALAnion gap [Moles/Vol]10 mmol/L9 - 17 mmol/LBON [facility] URBANA HOSPITALAST [Catalytic activity/Vol]18 U/LNINF - 32 U/LBON [facility] URBANA HOSPITALBilirubin [Mass/Vol]0.5 mg/dL0.3 - 1.2 mg/dLBON [facility] Calcium [Mass/Vol]9.5 mg/dL8.6 - 10.4 mg/dLBON MERCY [facility]ALTH URBANA HOSPITALChloride [Moles/Vol]97 mmol/LLow98 - 107 mmol/LBON SECOURS [facility] DOCTORS HOSPITALCO2 [Moles/Vol]28 mmol/L20 - 31 mmol/LBON SECMERCY HEALTH WEST HOSPITALCreatinine [Mass/Vol]0.9 mg/dL0.5 - 0.9 mg/dLBON SECMERCY HEALTH WEST HOSPITALEst, Glom Filt Rate70- PINFBON MERCY HEALTH URBANA HOSPITALComment on above: These results are not [...] that affects renal tubular secretion. Glucose [Mass/Vol]105 mg/rUPgfz67 - 99 mg/dLBON [facility] Interpretation and review of laboratory resultsAbnormalBON [facility] Potassium [Moles/Vol]4.8 mmol/L3.7 - 5.3 mmol/LBON [facility] URBANA HOSPITALProtein [Mass/Vol]7.2 g/dL6.4 - 8.3 g/dLBON MERCY HEALTH URBANA HOSPITALSodium [Moles/Vol]135 mmol/L135 - 144 mmol/LBON [facility] URBANA HOSPITALUrea nitrogen [Mass/Vol]16 mg/dL8 - 23 mg/dLBON MERCY HEALTH URBANA HOSPITALUrea nitrogen/Creatinine [Mass ratio]18 mg/mg9 - 20BON [facility]OU[facility] AND CLINICSMicroscopic Urinalysison 33-34-8552Claihhzz LM Ql (Urine sed)RARENoneBON MERCY HEALTH URBANA HOSPITALEpithelial cells LM.HPF (Urine sed) [#/Area]0 TO 2BON SECOURS [facility] DOCTORS HOSPITALRBC LM.HPF (Urine sed) [#/Area]0 TO 2B[facility]CTORS HOSPITALWBC LM.HPF (Urine sed) [#/Area]0 TO 2B[facility]OURS [facility] R[facility] HOSPITAL AND CLINICSUA w/Reflex Cultureon 58-96-8615Evxdvvziw, SemiQt,UrNegativeNormalNEGMercy Amador City HospitalComment on above:Performed By: #### UMICAO, UAX #### [facility] [address] [place], [place] 8[address] Helmet Hat Brim Cutter: Meche Butler, UrineNegativeBrown Memorial Hospital Comment on above:Performed By: #### UMICAO, UAX #### [facility] [address] [place], [place] [id number] Helmet Hat Brim Cutter: MAGNOLIA Butlerlarity (U)ClearNormalCLEARThe [facility] Comment on above:Performed By: #### YUMIKOO, UAX #### [facility] [address] [place], [place] [address]83 Helmet Hat Brim Cutter: MAGNOLIA Butlerolor (U)YellowNormalYMercy Health Willard Hospital Comment on above:Performed By: #### CALLIE, UAX #### [facility] [address] [place], [place] [address]83 Helmet Hat Brim Cutter: Collette Zhang MDGlucose Ql (U)NegativeNormalNEGPromedica Bay Park Hospital HospitalComment on above:Performed By: #### YUMIKOO, UAX #### [facility] [address] [place] [address] Dr. [place], [place] 6[address]2283 Helmet Hat Brim Cutter: Collette Zhang MDKetones Ql (U)NegativeNormalNEGPromedica Bay Park Hospital HospitalComment on above:Performed By: #### UMICAO, UAX #### [facility] [address] [place], [place] 25[address]183 Helmet Hat Brim Cutter: Collette Zhang MDLeukocyte esterase Test strip Ql (U)NegativeNormal NEGMerWaterbury HospitalComment on above:Performed By: #### UMICAO, UAX #### [facility] [address] [place], [place] [address]83 Helmet Hat Brim Cutter: Rosa Elena Butlerite,UrNegativeBrown Memorial Hospital Comment on above:Performed By: #### CALLIE, UAX #### [facility] [address] [place] [address] Dr. [place], [place] 376[address]83 Helmet Hat Brim Cutter: MIRNA Butler,Ur6.7Jjkfap4.0-9.0The [facility] HospitalComment on above:Performed By: #### CALLIE, UAX #### [facility] [address] [place] [address] Dr[address] [place], [place] 6059383 Helmet Hat Brim Cutter: MIRNA Butlerrotein Ql (U)NegativeNormalNEGThe Bellevue HospitalComment on above:Performed By: #### CALLIE, UAX #### [facility] [address] [place] [address] Dr. [place], [place] 7[address]83 Helmet Hat Brim Cutter: SUNITHA Butlerpec. Home,Ur1.427Rogevb6.010-1.020The [facility] HospitalComment on above:Performed By: #### CALLIE, UAX #### [facility] [address] [place] [address] Dr. [place], [place] 7[address] Helmet Hat Brim Cutter: Collette Zhang MDUrobilinogen,UrNormalNormal0.0-1.0The [facility] HospitalComment on above:Performed By: #### CALLIE, UAX #### [address] [place], [facility] Helmet Hat Brim Cutter: Collette Zhang MDUrinalysis with Reflex to Cultureon 05-23-2024 Bilirubin Ql (U)NegativeNEGATIVEBON SECOURS [facility] HEALTHClarity (U)ClearClearB[facility] HEALTHColor (U)YellowYellowBON SECOURS [facility]ORS HOSPITALGlucose Test strip (U) [Mass/Vol]NegativeNEGATIVE mg/dLBON SEC[facility]ORS HOSPITALHemoglobin Auto test strip Ql (U)NegativeNEGATIVEBON [facility]OURS [facility] HEALTHKetones (U) [Mass/Vol]NegativeNEGATIVE mg/dLBON [facility] HOSPITALLeukocyte esterase Test strip Ql (U)NegativeNEGATIVEBON [facility]OURS [facility] HEALTHNitrite Ql (U)Negative NEGATIVEBON MERCY HEALTH URBANA HOSPITALpH (U)6.0 [pH]5.0 - 9.0B[facility] Protein (U) [Mass/Vol]NegativeNEGATIVE mg/dLBON MER[facility]ALTH URBANA HOSPITALSpecific gravity (U) [Rel density]1.0101.010 - 1.020V[facility]OS[facility]ITAL CENTERUrobilinogen Qn (U)Normal0.0 - 1.0 EU/dLBON MER[facility]ALTH URBANA HOSPITALBON [facility] Urinalysis,Microon 81-57-5089OmeuvhfzWEJBZvkediQHQDGnath Tiffin HospitalComment on above:Performed By: #### CALLIE UAX #### [facility] [address] [place] [address] Helmet Hat Brim Cutter: Collette Zhang MDEpithelial cells LM Ql (Urine sed)0 TO 8Vdepiq1-71 The [facility] HospitalComment on above:Performed By: #### CALLIE UAX #### [facility] [address] [place], [place] [address]83 Helmet Hat Brim Cutter: Olayinka Butler RBC's0 TO 3Atfppn8-9DjoawBrecksville VA / Crille Hospital Comment on above:Performed By: #### CALLIE UAX #### [facility] [address] [place], [place] [address] Helmet Hat Brim Cutter: Olayinka Butler WBC's0 TO 5Ikvmgn0-3NzvxeThe [facility] Hospital Comment on above:Performed By: #### CALLIE UAX #### [facility] [address] [place], [place] [address]83 Helmet Hat Brim Cutter: MAGNOLIA Butlerytology Reporton 73-52-2030Vusriagz report Cyto stain.thin prep Doc (Cvx/Vag)(NOTE) Path Number: [id number] DIAGNOSIS Imaged ThinPrep Pap - Cervical (1 monolayer slide): Specimen Adequacy: Satisfactory for evaluation. -Endocervical/transformation zone component is absent. Descriptive Diagnosis: Negative for intraepithelial lesion or malignancy. Comments: Specimen was screened at [facility], [address] [place] [address] [employer] Screener: PT Electronically Signed Out Barbi Orly pt/05/20/2024 Source of Specimen: A: Imaged ThinPrep Pap - Cervical (1 monolayer slide) HPV Reflex?......................HPV if Abnormal Clinical History Hysterectomy Z01.419 Routine evaluation engineer exam without abnormal findings Processing Lab: [address] [id number] Interpretation performed at [facility], [address] [place] [address], [place] [address] This Pap Test has been evaluated with [...] GYNECOLOGIC CYTOLOGY REPORT Patient Name: MARYAM ADAM. [facility] Rec: [id number] [facility] ANATOMIC PATHOLOGY [address] [place] [address]. [place], [place] [address] [facility] CenterAmbulatory Visit Summaryon 06-15-7808Rpqbbgsyxo Visit Summary ALOK ADAMAnel Bain :1955 Visit [...] you for choosing us for your care. [facility] Centerral [facility] Office/Clinic Noteon 69-88-9098Rvlmudc Surgery Office/Clinic NoteChief Complaint colonoscopy follow up [...] virus vaccine, inactivated 09/21/2022 Recorded SARS-CoV-2 (COVID-19) mRNAMUL.ORD![id number] 09/21/2022 Recorded SARSCoV2 mRNA(bszrocgrk-nvza-capuxe) vac 03/23/2022 Recorded SARS-CoV-2 (COVID-19) mRNA BNT-162b2 vax 08/09/2021 Recorded 2023-08-31: [id number] SARS-CoV-2 (COVID-19) mRNA BNT-162b2 vax 01/12/2021 Recorded SARS-CoV-2 (COVID-19) mRNA BNT-162b2 vax 12/21/2020 RecordedCleveland Clinic Union HospitalComment on above:Result Comment: Electronically Signed By: YOHANA NARAYAN, Eron Starks\Date and Time Signed: 10/10/23 14:58 Jessie 10-10-2023 Reminders From: Brigette Arce LPN To: N - Clinical; Sent: 10/10/2023 14:44:13 EST Show up: 08/28/2033 07:00:00 EST Subject: colonoscopy recall Due Date/Time: 09/27/2033 07:00:00 EST Reminder/Recall Patient due for screening colonoscopy 09/27/2033.NormalCleveland Clinic Fairview HospitalPathology Noteon 83-50-2110Niqlbdilt Note [id number]#1.00TIFMedina HospitalOutside Colonoscopyon 66-26-4093Nbpxdlp Colonoscopy [id number]#1.00[facility] HospitalConsent for Procedure/Surgeryon 18-67-3317Lthsdjb for Procedure/Surgery [id number]#1.00[facility] HospitalFacesheeton 36-49-3489Oypeuekja [id number]#1.00[facility] HospitalAmbulatory Visit Summaryon 41-39-4791Afrncmzutg Visit Summary MARYAM ADAM :1955 Visit Date:09/05/2023 [...] you for choosing us for your care. [facility] HospitalLab Reportson 99-35-0150Qln [id number]#1.00TIFFNormalCleveland Clinic Fairview HospitalConsultation Noteon 73-59-8069Nwhhivpzkekv Note [id number]#1.00TIFFCleveland Clinic Union HospitalPhysician Referralon 51-64-9418Lhjzngvfe Referral [id number]#1.00CD:127C[facility] HospitalMG MAMM SCREEN 3D SERINA CADon 31-65-3433NC MAMM SCREEN 3D SERINA CADPatient: MARYAM ADAM Exam Date: 09/21/2022 : 1955 Gender:F Ordering : DR ELIZABETH FLORES Admission #: [id number] Family : Order #: [id number] CLICK HERE TO VIEW EXAM RADIOLOGY REPORT [...] lung cancer at age 62. LOCATION: [facility] BREAST COMPOSITION: Almost entirely fatty. [...] by: Prosper Reynoso M.D. on 09/21/2022 at 15:46NoFirelands Regional Medical CenterCBC AUTO DIFFon 50-14-5982AUAM #0.1 103/ulNormal0.0-0.1The [facility] CenterComment on above:Performed By: #### CBC #### [facility] [address] [address] [address] Sona CortezBasophils/100 WBC (Bld)0.7 %Normal0.2-2.0The [facility] Comment on above:Performed By: #### CBC #### [facility] [address] [address] [address] Sona Moran #0.2 103/ulNormal0.0-0.7The [facility] CenterComment on above: Performed By: #### CBC #### [facility] [address] [address] [address] Sona Mansfieldosinophils/100 WBC (Bld)2.1 %Normal0.9-7.0The [facility] Comment on above:Performed By: #### CBC #### [facility] [address] [place] [address] Dr. Sona Mansfieldrythrocyte distribution width (RBC) [Ratio]12.1 %Yjdmbq27.0-15.0 The [facility] CenterComment on above:Performed By: #### CBC #### [facility] [address] [place] [address] Dr. Sona CortezHematocrit (Bld) [Volume fraction]37.6 %Biruyo27.0-48.0The [facility] CenterComment on above:Performed By: #### CBC #### [facility] [address] [place] [address] Dr. Sona CortezHemoglobin (Bld) [Mass/Vol]12.5 g/wFQohlhp06.0-16.0The [facility] CenterComment on above:Performed By: #### CBC #### [facility] [address] [place] [address] Dr. Sona Siddiqui #0.01 10e3/ulNormal0.00-0.03The [facility] CenterComment on above:Performed By: #### CBC #### [facility] [address] [place] [address] Dr. Sona Siddiqui %0.1 %Normal0.0-0.5The [facility] CenterComment on above: Performed By: #### CBC #### [facility] [address] [address] [address] Sona Landeros #2.0 103/ulNormal1.2-3.8The [facility] CenterComment on above:Performed By: #### CBC #### [facility] [address] [address] [address] Sona Villatorohocytes/100 WBC (Bld)28.3 %Cproad91.5-60.0The [facility] CenterComment on above:Performed By: #### CBC #### [facility] [address] [place] [address] Dr. Sona Cárdenas DIFF REQNONormalThe [facility] CenterComment on above: Performed By: #### CBC #### [facility] [address] [place] [address] Dr. Sona Mcdaniel (RBC) [Entitic mass]31.9 snHvcwur60.7-34.0The [facility] CenterComment on above:Performed By: #### CBC #### [facility] [address] [place] [address] Dr. Sona Nava (RBC) [Mass/Vol]33.2 g/nGSreyid48.9-35.2[facility] on above:Performed By: #### CBC #### [facility] [address] [place] [address] Dr. Sona Nava (RBC) [Entitic vol]95.9 zFZjkszc51.0-99.0[address] [facility] on above:Performed By: #### CBC #### [facility] [address] [place] [address] Dr. Sona Brand #0.4 103/ulNormal0.3-0.8The [facility] on above:Performed By: #### CBC #### [facility] [address] [place] [address] Dr. Sona Warnerocytes/100 WBC (Bld)5.7 %Normal1.7-12.0The [facility] Comment on above:Performed By: #### CBC #### [facility] [address] [address] [address] Sona Claire #4.4 103/ulNormal1.4-6.5The [facility] CenterComment on above:Performed By: #### CBC #### [facility] [address] [address] [address] Sona Costautrophils/100 WBC (Bld)63.1 %Tdemkq95.0-75.0The [facility] CenterComment on above:Performed By: #### CBC #### [facility] [address] [place] [address] Dr. Sona De Dioslet mean volume (Bld) [Entitic vol]8.5 fLCritically low 9.5-13.5The [facility] CenterComment on above:Performed By: #### CBC #### [facility] [address] [place] [address] Dr. Sona CortezPLT313 103/xxFsjspt893-259Zgz [facility] CenterComment on above: Performed By: #### CBC #### [facility] [address] [place] [address] Dr. oSna CortezRBC3.92 106/ulCritically low4.20-5.40The [facility] CenterComment on above:Performed By: #### CBC #### [facility] [address] [place] [address] Dr. Sona CortezWBC7.0 103/ulNormal4.0-11.0The [facility] CenterComment on above: Performed By: #### CBC #### [facility] [address] [place] [address] Dr. Sona Bush THYROXINE INDEX T7on 26-47-0137DIF8.99Voiwjh2.30-4.50The [facility] CenterComment on above:Performed By: #### URIC, T7, TSH, CMP, LIPID #### [facility] [address] [place] [address] Dr. Sona CortezT3U33.0 %Roijws62.0-39.0The [facility] CenterComment on above: Performed By: #### URIC, T7, TSH, CMP, LIPID #### [facility] [address] [address] [address] Sona CortezT4 [Mass/Vol]7.00 ug/dLNormal4.80-13.90The [facility] Comment on above:Performed By: #### URIC, T7, TSH, CMP, LIPID #### [facility] [address] [place] [address] Dr. Sona CortezGLYCOHEMOGLOBIN A1Con 54-82-0471BBH RECOMMENDATIONSEE BELOWKindred Hospital LimaComment on above:Result Comment: ADA RECOMMENDED LIMIT 4.0 - 6.0 ADA THERAPEUTIC TARGET < 7.0 ACTION SUGGESTED > 7.0Performed By: #### A1C #### [facility] [address] [place] [address] Dr. Sona CortezGlucose [Mass/Vol]131 mg/dLNoFirelands Regional Medical CenterComment on above:Performed By: #### A1C #### [facility] [address] [place] [address] Dr. Sona CortezHbA1c (Bld) [Mass fraction]6.2 %Normal4.5-6.2The [facility] CenterComment on above:Performed By: #### A1C #### [facility] [address] [place] [address] Dr. Sona Saenz 25-37-9721Gqgz [Mass/Vol]98.0 ug/nOEsudmo15.0-170.0The [facility] CenterComment on above:Performed By: #### VITAD, IRON #### [facility] [address] [place] [address] Dr. Sona CortezLIPID PROFILEon 56-63-6272QQCW-HDL RATIO NORMSEE [facility] LimaComascension [facility] on above:Result Comment: 3.3 - 4.4 LOW RISK 4.4 - 7.1 AVERAGE RISK 7.1 - 11.0 MODERATE RISK >11.0 HIGH RISKPerformed By: #### VITAD, IRON #### [facility] [address] [address] [address] Sona CortezCholesterol [Mass/Vol]187 mg/dLNormal<=200The [facility] Comment on above:Performed By: #### VITAD, IRON #### [facility] [address] [address] [address] Sona CortezCholesterol in HDL [Mass/Vol]59 mg/sLClnqym42-12Nmb [facility] CenterComment on above:Performed By: #### VITAD, IRON #### [facility] [address] [address] [address] Sona CortezCholesterol in LDL [Mass/Vol]94.8 mg/dLLouis Stokes Cleveland VA Medical CenterComment on above:Performed By: #### VITAD, IRON #### [facility] [address] [place] [address] Dr. Sona Lomeliesterrobert.total/Cholesterol in HDL [Mass ratio]3.2 {ratio} NormalThe [facility] CenterComment on above:Performed By: #### VITAD, IRON #### [facility] [address] [address] [address] Sona Ch NORMAL> or = 60 mg/dl - LOW CARDIOVASCULAR RISK <40 mg/dl - HIGH CARDIOVASCULAR RISKLouis Stokes Cleveland VA Medical CenterComment on above:Performed By: #### VITAD, IRON #### [facility] [address] [place] [address] Dr. Sona CortezLDL CALC NORMALSEE BELOWNoFirelands Regional Medical CenterComment on above:Result Comment: <100 mg/dl OPTIMAL 100 - 129 mg/dl NEAR OR ABOVE OPTIMAL 130 - 159 mg/dl BORDERLINE HIGH 160 - 189 mg/dl HIGH >190 mg/dl VERY HIGH Performed By: #### VITAD, IRON #### [facility] [address] [place] [address] Dr. Sona CortezTriglyceride [Mass/Vol]166 mg/dLCritically high<=150The [facility] CenterComment on above:Performed By: #### VITAD, IRON #### [facility] [address] [place] [address] Dr. Sona WoodLDL CALC33.2 mg/dLNormalThe [facility] CenterComment on above: Performed By: #### VITAD, IRON #### [facility] [address] [place] [address] Dr. Sona Head 14(COMP METB)on 04-76-2877Qklhkni [Mass/Vol]4.1 g/dLNormal 3.4-5.0The [facility] CenterComment on above:Performed By: #### URIC, T7, TSH, CMP, LIPID #### [facility] [address] [place] [address] Dr. Sona CortezAlbumin/Globulin [Mass ratio]1.2 {ratio}NormalThe [facility] CenterComment on above:Performed By: #### URIC, T7, TSH, CMP, LIPID #### [facility] [address] [place] [address] Dr. Sona Riley [Catalytic activity/Vol]87 U/KWjksnp11-043Yfu [facility] Hospitalment on above:Performed By: #### URIC, T7, TSH, CMP, LIPID #### [facility] [address] [place] [address] Dr. Sona Dickson [Catalytic activity/Vol]31 U/QBljtyr44-59Rap [facility] Hospitalment on above:Performed By: #### URIC, T7, TSH, CMP, LIPID #### [facility] [address] [place] [address] Dr. Sona Bullock gap [Moles/Vol]14.8 mmol/LNormalThe [facility] Comment on above:Performed By: #### URIC, T7, TSH, CMP, LIPID #### [facility] [address] [place] [address] Dr. Sona Avila [Catalytic activity/Vol]17 U/QJzeipn13-77Cuh [facility] Hospitalment on above:Performed By: #### URIC, T7, TSH, CMP, LIPID #### [facility] [address] [place] [address] Dr. Yilan ChangBilirubin [Mass/Vol]0.4 mg/dLNormal0.2-1.0The [facility] Comment on above:Performed By: #### URIC, T7, TSH, CMP, LIPID #### [facility] [address] [address] [address] Sona CortezCalcium [Mass/Vol]9.1 mg/dLNormal8.5-10.1[facility] Comment on above:Performed By: #### URIC, T7, TSH, CMP, LIPID #### [facility] [address] [address] [address] Sona CortezChloride [Moles/Vol]100 mmol/QWfkdiu79-570AzzC[facility] Comment on above:Performed By: #### URIC, T7, TSH, CMP, LIPID #### [facility] [address] [place] [address] Dr. Sona CortezCO2 [Moles/Vol]27.4 mmol/XVmkcbt64.0-32.0[facility] Comment on above:Performed By: #### URIC, T7, TSH, CMP, LIPID #### [facility] [address] [place] [address] Dr. Sona CortezCreatinine [Mass/Vol]1.05 mg/dLCritically high0.55-1.02The [facility] CenterComment on above:Performed By: #### URIC, T7, TSH, CMP, LIPID #### [facility] [address] [address] [address] Sona MansfieldGFR-AF BOTSWANAN>60Normal>=60The [facility] CenterComment on above:Performed By: #### URIC, T7, TSH, CMP, LIPID #### [facility] [address] [address] [address] Sona MansfieldGFR-NON AF EGPMTPLQ52 mL/min/1.81y7Xhwoonyqrz low>=60The [facility] CenterComment on above:Performed By: #### URIC, T7, TSH, CMP, LIPID #### [facility] [address] [address] [address] Sona CortezGlobulin (S) [Mass/Vol]3.5 g/dLNormMercy Health St. Vincent Medical CenterComment on above:Performed By: #### URIC, T7, TSH, CMP, LIPID #### [facility] [address] [place] [address] Dr. Sona CortezGlucose [Mass/Vol]149 mg/dLCritically vvpr49-695Xwo [facility] CenterComment on above:Performed By: #### URIC, T7, TSH, CMP, LIPID #### [facility] [address] [place] [address] Dr. Sona CortezPotassium [Moles/Vol]4.2 mmol/LNormal3.5-5.1The [facility] Comment on above:Performed By: #### URIC, T7, TSH, CMP, LIPID #### [facility] [address] [place] [address] Dr. Sona CortezProtein [Mass/Vol]7.6 g/dLNormal6.4-8.2The [facility] Comment on above:Performed By: #### URIC, T7, TSH, CMP, LIPID #### [facility] [address] [place] [address] Dr. Sona CortezSodium [Moles/Vol]138 mmol/DWuedwx403-362Xbz [facility] Comment on above:Performed By: #### URIC, T7, TSH, CMP, LIPID #### [facility] [address] [place] [address] Dr. Sona CortezUrea nitrogen [Mass/Vol]17.0 mg/dLNormal7.0-18.0The [facility] CenterComment on above:Performed By: #### URIC, T7, TSH, CMP, LIPID #### [facility] [address] [place] [address] Dr. Sona CortezUrea nitrogen/Creatinine [Mass ratio]16.2 mg/mgNoFirelands Regional Medical CenterComment on above:Performed By: #### URIC, T7, TSH, CMP, LIPID #### [facility] [address] [place] [address] Dr. Sona Linda 83-68-9693HHH6.358 uIU/mLNormal0.358-3.740The [facility] CenterComment on above:Performed By: #### URIC, T7, TSH, CMP, LIPID #### [facility] [address] [place] [address] Dr. Sona Keller ACID SERUMon 64-60-6289Zvolk [Mass/Vol]5.2 mg/dLNormal 2.6-6.0The [facility] CenterComment on above:Performed By: #### URIC, T7, TSH, CMP, LIPID #### [facility] [address] [place] [address] Dr. Sona CortezVITAMIN D 25 OHon 35-44-7196LFH D 25-OH15.6 ng/mLNormalCherrington HospitalComment on above:Performed By: #### VITAD, IRON #### [facility] [address] [place] [address] Dr. Sona Pierce [place] SCC[facility] Hospital LimaComment on above: Result Comment: <20 ng/mL Vit D deficient 20 - <30 ng/mL Vit D insufficient 30 - 100 ng/mL Vit D sufficient >100 ng/mL Potential ToxicityPerformed By: #### VITAD, IRON #### [facility] [address] [place] [address] Dr. Sona CortezOperative Reporton [id number] ReportMR#: [id number] I [facility] Pt. Name: Maryam Adam Room #: [id number] Discharge 08/03/2019 Date: Birthdate: 1955 OPERATIVE REPORT DATE OF SURGERY: 08/02/2019 SURGEON: Krishna Collnis MD SIEVE GRADER TENDER: Tirso Gonzales MD. PREOPERATIVE DIAGNOSIS: Right [...] the humeral head, and we used a shoe lay out planner to make sure the stem was [...] Collins MD Date Trans: 08/05/2019 01:24 A/macho DN_JN:[id number] cc: Lala Goncalves M.D. [address], [place] [address]ScwaxvEwkAdams County HospitalBASIC METABOLIC PANELon 28-65-2597Mnfvhyn [Mass/Vol]8.9 mg/dLNormal8.6-10.3The [facility] FoundationComment on above:Order Comment: No: Do not add to previous drawPerformed By: #### [id number] #### [facility] [address] [place] [address], USAChloride [Moles/Vol]104 mmol/BOxdrlb19-541Yui [facility] FoundationComment on above:Order Comment: No: Do not add to previous drawPerformed By: #### [id number] #### [facility] [address] [place] [address], USACO2 [Moles/Vol]30 mmol/QRbuvry06-02Vgg [facility] FoundationComment on above:Order Comment: No: Do not add to previous draw Performed By: #### [id number] #### [facility] [address] [place] [address], USACreatinine [Mass/Vol]0.94 mg/dLNormal0.60-1.20The [facility] FoundationComment on above:Order Comment: No: Do not add to previous drawPerformed By: #### [id number] #### [facility] [address] [place] [address], USAGFR/1.73 sq M predicted among blacks MDRD (S/P/Bld) [Vol rate/Area]mL/min/{1.73_m2}Normal>60The [facility] Comment on above:Order Comment: No: Do not add to previous drawPerformed By: #### 21408 #### [facility] [address] [place] [address], USAGFR/1.73 sq M predicted among non-blacks MDRD (S/P/Bld) [Vol rate/Area]mL/min/{1.73_m2}Normal>60The [facility] Comment on above:Order Comment: No: Do not add to previous drawPerformed By: #### [id number] #### [facility] [address] [place] [address], USAGlucose [Mass/Vol]136 mg/pSKeqa15-958Fpe [facility] FoundationComment on above:Order Comment: No: Do not add to previous drawPerformed By: #### [id number] #### [facility] [address] [place] [address], USAPotassium [Moles/Vol]4.4 mmol/LNormal3.5-5.1The [facility] FoundationComment on above:Order Comment: No: Do not add to previous drawPerformed By: #### [id number] #### [facility] [address] [place] [address], USASodium [Moles/Vol]141 mmol/ORtwqve880-491Syc [facility] FoundationComment on above:Order Comment: No: Do not add to previous drawPerformed By: #### [id number] #### [facility] [address] [facility] [place] [address], USAUrea nitrogen [Mass/Vol]12 mg/dLNormal7-25The [facility] FoundationComment on above:Order Comment: No: Do not add to previous drawPerformed By: #### 07812 #### [facility] [address] [facility] [place] [address], [facility] HOSPITALCBC W/DIFFon 06-76-2260RRJ BASOPHILS0.0 10*3/uLNormal 0.0-0.2The [facility] FoundationComment on above:Order Comment: No: Do not add to previous drawPerformed By: #### [id number] #### [facility] [address] [place] [address], USAABS IMM GRANS0.1 10*3/uLNormal0.0-0.2The [facility] FoundationComment on above:Order Comment: No: Do not add to previous drawPerformed By: #### 61833 #### [facility] [address] [place] [address], [facility]OL[facility] HOSPITALABS NEUTROPHILS8.0 10*3/uLHigh1.6-7.6The [facility] FoundationComment on above:Order Comment: No: Do not add to previous drawPerformed By: #### [id number] #### [facility] [address] [facility]. [place] [address], USABasophils/100 WBC (Bld)0.1 %Normal0.0-1.0The [facility] FoundationComment on above:Order Comment: No: Do not add to previous drawPerformed By: #### 47460 #### [facility] [address] [place] [address], USAEosinophils (Bld) [#/Vol]0.0 10*3/uLNormal0.0-0.5The [facility] FoundationComment on above:Order Comment: No: Do not add to previous drawPerformed By: #### 64464 #### [facility] [address] [address], USAEosinophils/100 WBC (Bld)0.0 %Normal0.0-6.0The [facility] FoundationComment on above:Order Comment: No: Do not add to previous drawPerformed By: #### 24485 #### [facility] [address] [place] [address], USAErythrocyte distribution width (RBC) [Ratio]12.1 %Normal 11.5-15.0The [facility] FoundationComment on above:Order Comment: No: Do not add to previous drawPerformed By: #### 45067 #### [facility] [address] [facility] [place] [address], USAHematocrit (Bld) [Volume fraction]29.4 %Low36.0-45.0The [facility] FoundationComment on above:Order Comment: No: Do not add to previous drawPerformed By: #### 10649 #### [facility] [address] [place] [address], USAHemoglobin (Bld) [Mass/Vol]9.5 g/dLLow12.0-15.0The [facility] FoundationComment on above:Order Comment: No: Do not add to previous drawPerformed By: #### 39094 #### [facility] [address] [place] [address], USAIMMATURE GRANS0.5 %Normal0.0-1.0The [facility] FoundationComment on above:Order Comment: No: Do not add to previous draw Performed By: #### 35181 #### [facility] [address] [place] [address], USALymphocytes (Bld) [#/Vol]1.3 10*3/uLNormal1.2-4.0The [facility] FoundationComment on above:Order Comment: No: Do not add to previous drawPerformed By: #### 09295 #### [facility] [address] [facility] [place] [address], USALymphocytes/100 WBC (Bld)13.1 %Low20.0-45.0The [facility] FoundationComment on above:Order Comment: No: Do not add to previous drawPerformed By: #### 54153 #### [facility] [address] [place] [address], [facility] (RBC) [Entitic mass]32.0 ubUukrsn86.0-33.0The [facility] FoundationComment on above:Order Comment: No: Do not add to previous drawPerformed By: #### [id number] #### [facility] [address] [place] [address], [facility] (RBC) [Mass/Vol]32.3 g/uLOvhtce27.0-35.0The [facility] FoundationComment on above:Order Comment: No: Do not add to previous drawPerformed By: #### 72387 #### [facility] [address] [place] [address], [facility] (RBC) [Entitic vol]99.0 tENziu52.0-98.0The [facility] FoundationComment on above:Order Comment: No: Do not add to previous drawPerformed By: #### [id number] #### [facility] [address] [facility] [place] [address], USAMonocytes (Bld) [#/Vol]0.7 10*3/uLNormal0.1-1.0The [facility] FoundationComment on above:Order Comment: No: Do not add to previous drawPerformed By: #### 08356 #### [facility] [address] [place] [address], USAMONOS7.2 %Normal5.0-12.0The [facility] FoundationComment on above:Order Comment: No: Do not add to previous drawPerformed By: #### 70331 #### [facility] [address] [place] [address], USANeutrophils/100 WBC (Bld)79.1 %High40.0-72.0The [facility] FoundationComment on above:Order Comment: No: Do not add to previous drawPerformed By: #### 31067 #### [facility] [address] [place] [address], USANucleated RBC/100 WBC (Bld) [Ratio]0 %Normal0-0The [facility] FoundationComment on above:Order Comment: No: Do not add to previous drawPerformed By: #### [id number] #### [facility] [address] [place] [address], USAPLAT [address] 10*3/hHLpkcnk205-421Hby [facility] FoundationComment on above:Order Comment: No: Do not add to previous draw Performed By: #### 18161 #### [facility] [address] [place] [address], USARBC (Bld) [#/Vol]2.97 10*6/uLLow3.80-5.00The [facility] FoundationComment on above:Order Comment: No: Do not add to previous drawPerformed By: #### 44404 #### [facility] [address] [place] [address], USAWBC (Bld) [#/Vol]. 10*3/uLNormal4.00-10.60The [facility] FoundationComment on above:Order Comment: No: Do not add to previous drawPerformed By: #### 39696 #### [facility] [address] [facility] [place] [address], USAPOC GLUCOSE LABon 66-08-5869Ssqigpv [Mass/Vol]95 mg/dL Lhhclq15-168Tve [facility] FoundationComment on above:Performed By: #### 31105 #### [facility] [address] [place] [address], USAPORTABLE SHOULDER RIGHT 2 VWSon 14-34-9692SCBYGXZN SHOULDER RIGHT 2 SUniversOhioHealth O[facility] Department of Radiology [address] [place] [id number] Patient Name: MARYAM ADAM : 1955 Sex: F Age: Race: White Pt. Location: [place] [address] Patient Status: I Ordered Date: 08/02/2019 5:55:00 [...] findings. Electronically signed by:Dustin Rowe. Transcribed by: [email or web address], User Resident: VILMA AMAYA Electronically Signed by: DUSTIN ROWE @ 08/02/2019 07:31 PM I personally read this/these film(s) with this residentAdams County HospitalComment on above:Order Comment: No: Do not add to previous drawCT 3D UPPER EXTREMITY WO CONTRAST RIGHTon 15-91-5120KL 3D UPPER EXTREMITY WO CONTRAST RIGHTUnFisher-Titus Medical Center Department of Radiology [address] [place] [address] Patient Name: MARYAM ADAM : 1955 Sex: F Age: Race: White Pt. Location: 84 Patient Status: D Ordered Date: 07/02/2019 3:40:00 PM Completed Date: 07/10/2019 04:05 PM Requesting Provider: KRISHNA COLLINS Attending Provider: KRISHNA COLLINS Report Copy To: LALA GONCALVES Signs & Symptoms: M25.811 Other specified joint disorders, right shoulder I10 History: Marie, no pc per todd @ [facility] cpt code 18220 *mla Comments: right shoulder for surgical planning [...] injury. Electronically signed by:Chandni Odonnell. Transcribed by: [email or web address], User Resident: Electronically Signed by: CHANDNI ODONNELL @ 07/10/2019 04:22 [facility] CenterComment on above:Order Comment: No: Do not add to previous drawSHOULDER Elaine 93-86-0637TQESOAFA [facility] Department of Radiology [address] [place] [id number] Patient Name: MARYAM ADAM : 1955 Sex: F Age: Race: White Pt. Location: 84 Patient Status: O Ordered Date: 07/02/2019 3:00:00 PM Completed Date: 07/02/2019 03:10 PM Requesting Provider: KRISHNA COLLINS Attending Provider: KRISHNA COLLINS Report Copy To: Signs & Symptoms: M25.519 Pain in unspecified shoulder I10 History: [place] Comments: , , , Ordering Provider - [...] instability Electronically signed by:Chandni Odonnell. Transcribed by: [email or web address], User Resident: Electronically Signed by: CHANDNI ODONNELL @ 07/02/2019 03:41 PMNormalThe [facility] FoundationComment on above:Order Comment: No: Do not add to previous drawOperative Reporton [id number] ReportMR#: [id number] S [facility] Pt. Name: Maryam Adam Room #: 9D [...] Collins MD Date Trans: 11/29/2018 06:23 A/macho DN_JN:[id number] cc: Lala Goncalves M.D. [place] [address] [facility] [place] [address]HirvhdVliOhioHealth Pickerington Methodist Hospital GLUCOSE LABon 21-51-3610Paebpxi [Mass/Vol]90 mg/vEIskipy41-835Jdv [facility] FoundationComment on above:Performed By: #### 35078 #### [facility] [address] [place] [address], [facility]*MRSA/MSSA DNA NASALon 11-06-2018*MRSA/MSSA DNA NASAL Clinical Report: (D) Specimen: NASAL SWAB Collected: 11/06/2018 13:53 Status: Final Last Updated: 11/06/2018 18:38 MSSA DNA (Final) Negative MRSA DNA (Final) NegativeNormalThe [facility] FoundationComment on above:Performed By: #### [id number] #### [facility] [address] [facility] [place] [address], [facility]ÑOLA HOSPITALAPTTon 32-12-1754nZVD Coag (Bld) [Time]33.9 sNormal 25.0-35.0The [facility] FoundationComment on above:Result Comment: ALL RESULTS MUST BE [...] BE USED FOR THIS PURPOSE.Performed By: #### [id number] #### [facility] [address] [facility] [place] [address], USABASIC METABOLIC PANELon 28-57-6451Xggkzwt [Mass/Vol]9.4 mg/dLNormal8.6-10.3The [facility] FoundationComment on above: Performed By: #### 90194 #### [facility] [address] [facility] [place] [address], USAChloride [Moles/Vol]102 mmol/TXdzlmv61-643Eyh [facility] FoundationComment on above:Performed By: #### 34539 #### [facility] [address] [facility] [place] [address], USACO2 [Moles/Vol]27 mmol/WUnnjui57-61Wsw [facility] FoundationComment on above:Performed By: #### 59464 #### [facility] [address] [facility] [place] [address], USACreatinine [Mass/Vol]0.86 mg/dLNormal0.60-1.20The [facility] FoundationComment on above:Performed By: #### 61949 #### [facility] [address] [place] [address], USAGFR/1.73 sq M predicted among blacks MDRD (S/P/Bld) [Vol rate/Area]mL/min/{1.73_m2}Normal>60The [facility] Comment on above:Performed By: #### 79681 #### [facility] [address] [place] [address], USAGFR/1.73 sq M predicted among non-blacks MDRD (S/P/Bld) [Vol rate/Area]mL/min/{1.73_m2}Normal>60The [facility] Comment on above:Performed By: #### 29532 #### [facility] [address] [facility] [place] [address], USAGlucose [Mass/Vol]91 mg/wSSqazug05-923Ygt [facility] FoundationComment on above:Performed By: #### 35326 #### [facility] [address] [facility] [place] [address], USAPotassium [Moles/Vol]4.1 mmol/LNormal3.5-5.1The [facility] FoundationComment on above:Performed By: #### 48117 #### [facility] [address] [facility] [place] [address], USASodium [Moles/Vol]134 mmol/OMhl376-004Yvh [facility] FoundationComment on above:Performed By: #### 38572 #### [facility] [address] [place] [address], USAUrea nitrogen [Mass/Vol]17 mg/dLNormal7-25The [facility] FoundationComment on above:Performed By: #### 88769 #### [facility] [address] [facility] [place] [address], [facility]OSPITALCBC W/DIFFon 72-45-3309SOF BASOPHILS0.1 10*3/uLNormal 0.0-0.2The [facility] FoundationComment on above:Performed By: #### [id number] #### [facility] [address] [facility] [place] [address], PRES[facility] ESPAÑOLA HOSPITALABS IMM GRANS0.0 10*3/uLNormal0.0-0.2The [facility] FoundationComment on above:Performed By: #### 12815 #### [facility] [address] [facility] [place] [address], PRES[facility] ESPA[facility]OL[facility] HOSPITALABS NEUTROPHILS4.6 10*3/uLNormal1.6-7.6The [facility] FoundationComment on above:Performed By: #### 57687 #### [facility] [address] [facility] [place] [address], USABasophils/100 WBC (Bld)0.7 %Normal0.0-1.0The [facility] FoundationComment on above:Performed By: #### 93532 #### [facility] [address] [facility] [place] [address], PRES[facility]ÑOL[facility] HOSPITALEosinophils (Bld) [#/Vol]0.1 10*3/uLNormal0.0-0.5The [facility] FoundationComment on above:Performed By: #### 02117 #### [facility] [address] [facility] [place] [address], USAEosinophils/100 WBC (Bld)1.8 %Normal0.0-6.0The [facility] FoundationComment on above:Performed By: #### 28129 #### [facility] [address] [place] [address], USAErythrocyte distribution width (RBC) [Ratio]11.9 %Normal 11.5-15.0The [facility] FoundationComment on above:Performed By: #### 51879 #### [facility] [address] [place] [address], USAHematocrit (Bld) [Volume fraction]38.6 %Ndovdp17.0-45.0The [facility] FoundationComment on above:Performed By: #### 68568 #### [facility] [address] [facility] [address], USAHemoglobin (Bld) [Mass/Vol]12.6 g/kBRgmovh65.0-15.0The [facility] FoundationComment on above:Performed By: #### 37636 #### [facility] [address] [facility] [place] [address], USAIMMATURE GRANS0.1 %Normal0.0-1.0The [facility] FoundationComment on above:Performed By: #### 30678 #### [facility] [address] [facility] [place] [address], USALymphocytes (Bld) [#/Vol]1.9 10*3/uLNormal1.2-4.0The [facility] FoundationComment on above:Performed By: #### 87425 #### [facility] [address] [facility] [place] [address], USALymphocytes/100 WBC (Bld)26.3 %Narlfk58.0-45.0The [facility] FoundationComment on above:Performed By: #### 01816 #### [facility] [address] [facility] [place] [address], USAMCH (RBC) [Entitic mass]30.8 seOzsdxh21.0-33.0The [facility] FoundationComment on above:Performed By: #### 70831 #### [facility] [address] [facility] [place] [address], USAMCHC (RBC) [Mass/Vol]32.6 g/cARxqqme75.0-35.0The [facility] FoundationComment on above:Performed By: #### 42702 #### [facility] [address] [place] [address], [facility]OLA HOSPITALMCV (RBC) [Entitic vol]94.4 vJUcfdyz34.0-98.0The [facility] FoundationComment on above:Performed By: #### [id number] #### [facility] [address] [place] [address], USAMonocytes (Bld) [#/Vol]0.4 10*3/uLNormal0.1-1.0The [facility] FoundationComment on above:Performed By: #### 99880 #### [facility] [address] [place] [address], USAMONOS5.5 %Normal5.0-12.0The [facility] FoundationComment on above:Performed By: #### 26374 #### [facility] [address] [place] [address], USANeutrophils/100 WBC (Bld)65.6 %Rlqmzo88.0-72.0The [facility] Clinic FoundationComment on above:Performed By: #### [id number] #### [facility] [address] [place] [address], USANucleated RBC/100 WBC (Bld) [Ratio]0 %Normal0-0The [facility] Clinic FoundationComment on above:Performed By: #### [id number] #### [facility] [address] [facility] [place] [address], USAPLAT UMV904 10*3/eWTdbxwx309-336Jhe [facility] Clinic FoundationComment on above:Performed By: #### 89910 #### [facility] [address] [place] [address], USARBC (Bld) [#/Vol]4.09 10*6/uLNormal3.80-5.00The [facility] Clinic FoundationComment on above:Performed By: #### [id number] #### [facility] [address] [place] [address], [facility]OLA HOSPITALWBC (Bld) [#/Vol]7.03 10*3/uLNormal4.00-10.60The [facility] FoundationComment on above:Performed By: #### 82425 #### [facility] [address] [place] [address], USAPROTHROMBIN TIMEon 74-99-2052XTW Coag (PPP) [Relative time] 0.93 {INR}Normal0.91-1.16The [facility] Clinic FoundationComment on above:Result Comment: ACCCP RECOMMENDED INR FOR [...] OPTIMAL THERAPEUTIC RANGE. CHEST 1995;108:231S-246S.Performed By: #### [id number] #### [facility] [address] [place] [address], USAPT Coag (PPP) [Time]12.5 lSrgcil53.3-14.8The [facility] Clinic FoundationComment on above:Result Comment: ALL RESULTS MUST BE INTERPRETED WITH RESPECT TO BLOOD DRAWING ARTIFACT OR DILUTION ERROR OF ANTICOAGULANT AT THE TIME OF SAMPLING.Performed By: #### [id number] #### [address] [place] [address], USAMRI SHOULDER WO CONTRAST RIGHTon 96-40-3100GQH SHOULDER WO CONTRAST RIGHTCleveland Clinic Foundation Department of Radiology [address] [place] [phone] Patient Name: MARYAM ADAM : 1955 Sex: F Age: Race: White Pt. Location: Patient Status: D Ordered Date: 10/17/2018 3:15:00 PM Completed Date: 10/29/2018 04:20 PM Requesting Provider: KRISHNA COLLINS Attending Provider: KRISHNA COLLINS Report Copy To: LALA GONCALVES Signs & Symptoms: M75.121 Complete rotatr-cuff tear/ruptr of r shoulder, not trauma I10 History: [place] no pc per todd @ [facility] cpt code 46261 call ref# [id number] *mla Comments: , , , Ordering Provider [...] bursitis. Electronically signed by:Chandni Odonnell. Transcribed by: [email or web address], User Resident: Electronically Signed by: CHANDNI ODONNELL @ 10/30/2018 12:47 PMNTwin City HospitalComment on above:Order Comment: No: Do not add to previous drawSGUNDERSEN LUTHERAN [facility] Elaine 24-31-1071NHKJVTET [facility] Department of Radiology [address] [place] [phone] Patient Name: MARYAM ADAM : 1955 [...] joint Electronically signed by:Brendan Grijalva. Transcribed by: [email or web address], User Resident: Electronically Signed by: BRENDAN GRIJALVA @ 09/04/2018 01:55 PMNormalThe Cleveland Clinic FoundationComment on above:Order Comment: No: Do not add to previous drawOperative Reporton 19-51-3812Tznmlmnak ReportMR#: [id number] I [facility] Pt. Name: Maryam Adam Room #: [id number] Discharge 08/24/2018 Date: Birthdate: 1955 OPERATIVE REPORT [...] Collins MD Date Trans: 08/25/2018 09:10 Jaquan/macho DN_JN:[id number] cc: Lala Goncalves M.D. [place] [address] [facility] [address] Adilene Liu M.D. E R Physican...do Not Send [address] [id number] County HospitalBASIC METABOLIC PANELon 62-58-5330Tgbnkwf [Mass/Vol]8.9 mg/dLNormal8.6-10.3The [facility] Clinic FoundationComment on above:Order Comment: No: Do not add to previous drawPerformed By: #### 71724 #### [facility] [address] [place] [address], USAChloride [Moles/Vol]102 mmol/GHzwxux20-681Mni [facility] Clinic FoundationComment on above:Order Comment: No: Do not add to previous drawPerformed By: #### 00053 #### [facility] [address] [place] [address], USACO2 [Moles/Vol]24 mmol/SCgraxv89-22Kex [facility] Clinic FoundationComment on above:Order Comment: No: Do not add to previous draw Performed By: #### 59570 #### [facility] [address] [place] [address], USACreatinine [Mass/Vol]0.84 mg/dLNormal0.60-1.20The [facility] Clinic FoundationComment on above:Order Comment: No: Do not add to previous drawPerformed By: #### 05593 #### [facility] [address] [place] [address], USAGFR/1.73 sq M predicted among blacks MDRD (S/P/Bld) [Vol rate/Area]mL/min/{1.73_m2}Normal>60[facility] Comment on above:Order Comment: No: Do not add to previous drawPerformed By: #### 13114 #### [facility] [address] [place] [address], USAGFR/1.73 sq M predicted among non-blacks MDRD (S/P/Bld) [Vol rate/Area]mL/min/{1.73_m2}Normal>60The [facility] Comment on above:Order Comment: No: Do not add to previous drawPerformed By: #### 77352 #### [facility] [address] [place] [address], USAGlucose [Mass/Vol]182 mg/nRGrmi04-187Wux [facility] Clinic FoundationComment on above:Order Comment: No: Do not add to previous drawPerformed By: #### 25808 #### [facility] [address] [place] [address], USAPotassium [Moles/Vol]4.1 mmol/LNormal3.5-5.1The [facility] Clinic FoundationComment on above:Order Comment: No: Do not add to previous drawPerformed By: #### 06450 #### [facility] [address] [place] [address], USASodium [Moles/Vol]135 mmol/FDrf206-440Mxm [facility] Clinic FoundationComment on above:Order Comment: No: Do not add to previous drawPerformed By: #### 31418 #### [facility] [address] [place] [address], USAUrea nitrogen [Mass/Vol]12 mg/dLNormal7-25The [facility] Clinic FoundationComment on above:Order Comment: No: Do not add to previous drawPerformed By: #### 07059 #### [facility] [address] [place] [address], [facility] HOSPITALCBC COMPLETE BLOOD COUNTon 08-68-7771Yjbgsgwizsk distribution width (RBC) [Ratio]12.3 %Iuenje48.5-15.0The [facility] Clinic FoundationComment on above:Order Comment: No: Do not add to previous draw Performed By: #### 42761 #### [facility] [address] [place] [address], USAHematocrit (Bld) [Volume fraction]34.9 %Low36.0-45.0The [facility] Clinic FoundationComment on above:Order Comment: No: Do not add to previous drawPerformed By: #### 05517 #### [facility] [address] [place] [address], USAHemoglobin (Bld) [Mass/Vol]11.7 g/dLLow12.0-15.0The [facility] Clinic FoundationComment on above:Order Comment: No: Do not add to previous drawPerformed By: #### 25850 #### [facility] [address] [place] [address], [facility] (RBC) [Entitic mass]31.7 lxGrxrel13.0-33.0The [facility] Clinic FoundationComment on above:Order Comment: No: Do not add to previous drawPerformed By: #### 15206 #### [facility] [address] [place] [address], [facility] (RBC) [Mass/Vol]33.5 g/nPXqurbh27.0-35.0The [facility] Clinic FoundationComment on above:Order Comment: No: Do not add to previous drawPerformed By: #### 95656 #### [facility] [address] [place] [address], [facility] (RBC) [Entitic vol]94.6 tAPrblif72.0-98.0The [facility] Clinic FoundationComment on above:Order Comment: No: Do not add to previous drawPerformed By: #### 49983 #### [facility] [address] [place] [address], PRES[facility]ÑOLA HOSPITALNucleated RBC/100 WBC (Bld) [Ratio]0 %Normal0-0The [facility] Clinic FoundationComment on above:Order Comment: No: Do not add to previous drawPerformed By: #### 86191 #### [facility] [address] [facility] [address], USAPLAT UPT486 10*3/wKLhpety145-507Xde [facility] Clinic FoundationComment on above:Order Comment: No: Do not add to previous draw Performed By: #### 11612 #### [facility] [address] [place] [address], PRES[facility] ESPA[facility]OLA HOSPITALRBC (Bld) [#/Vol]3.69 10*6/uLLow3.80-5.00The [facility] Clinic FoundationComment on above:Order Comment: No: Do not add to previous drawPerformed By: #### 53174 #### [facility] [address] [place] [address], USAWBC (Bld) [#/Vol]16.41 10*3/uLHigh4.00-10.60The [facility] Clinic FoundationComment on above:Order Comment: No: Do not add to previous drawPerformed By: #### 05757 #### [address] [address], USACT UPPER EXTREMITY WO CONTRAST RIGHTon 44-55-7385EO UPPER EXTREMITY WO CONTRAST RIGHTCleveland Clinic Foundation Department of Radiology [address] [place] [phone] Patient Name: MARYAM AADM : 1955 Sex: F Age: Race: White Pt. Location: [id number] Patient Status: I Ordered Date: 08/23/2018 8:45:00 [...] fracture Electronically signed by:Chandni Odonnell. Transcribed by: [email or web address], User Resident: Electronically Signed by: CHANDNI ODONNELL @ 08/23/2018 01:20 PMNormalMercy Memorial HospitalComment on above:Order Comment: R/O Fractures, Right shoulder CT scan to evaluate fx patternConsultationon 07-11-4173OujbjnpudbfrNE#: [id number] [facility] Pt. Name: Maryam Adam Date of Service: 08/23/2018 Room #: [id number] Birthdate: 1955 Referring Physician: CONSULTATION HISTORY OF [...] to 0.5% for any cardiac or non-fatal AL and I feel very comfortable to just [...] Mchugh MD Date Trans: 08/23/2018 09:21 P/macho DN_JN:[id number] cc: Lala Goncalves M.D. [address] [address] Wiliam Kemp R Physicawilda...do Not Send [address] [place] [address]WeikivSumAdams County HospitalPORTABLE SHOULDER RIGHT 2 Son 40-77-0353ZZXEPHWN SHOULDER RIGHT 2 [facility] Department of Radiology [address] [place] [phone] Patient Name: MARYAM ADAM : 1955 Sex: F Age: Race: White Pt. Location: [facility] Patient Status: I Ordered Date: 08/23/2018 1:40:00 AM Completed Date: 08/23/2018 07:48 AM Requesting Provider: OCTAVIO SHARMA Attending Provider: OCTAVIO SHARMA Report Copy To: Signs & Symptoms: Post Reduction History: Patient history not available Comments: R/O Dislocation, 3 views; Grashey, scapular Y, and axillary (or velpeau if cannot obtain satisfactory axillary) Exam: PORTABLE SHOULDER RIGHT 2 [facility] PORTABLE SHOULDER RIGHT 2 S 08/23/2018 7:48 [...] Bankart Electronically signed by:Chandni Odonnell. Transcribed by: [email or web address], User Resident: Electronically Signed by: CHANDNI ODONNELL @ 08/23/2018 09:02 AMNormalThe Cleveland Clinic FoundationComment on above:Order Comment: R/O Dislocation, 3 views; Grashey, scapular Y, and axillary (or velpeau if cannot obtain satisfactory axillary)PROTHROMBIN TIMEon 67-54-0280FBQ Coag (PPP) [Relative time]0.97 {INR}Normal0.91-1.16The [facility] Clinic FoundationComment on above:Order Comment: No: Do not add [...] OPTIMAL THERAPEUTIC RANGE. CHEST 1995;108:231S-246S.Performed By: #### [id number] #### [facility] [address] [place] [address], USAPT Coag (PPP) [Time]12.9 mJzttnq13.3-14.8The [facility] Clinic FoundationComment on above:Order Comment: No: Do not add to previous drawResult Comment: ALL RESULTS MUST BE INTERPRETED WITH RESPECT TO BLOOD DRAWING ARTIFACT OR DILUTION ERROR OF ANTICOAGULANT AT THE TIME OF SAMPLING.Performed By: #### 27622 #### [address] [address], USASHOULD 42-94-9122YEQIKJCC [facility] Department of Radiology [address] [place] [phone] Patient Name: MARYAM ADAM : 1955 Sex: F Age: Race: White Pt. Location: [id number] Patient Status: I Ordered Date: 08/23/2018 2:10:00 [...] findings. Electronically signed by:Dustin Rowe. Transcribed by: [email or web address], User Resident: DAMIÁN CLARK Electronically Signed by: DUSTIN ROWE @ 08/24/2018 05:40 PM I personally read this/these film(s) with this residentAdams County HospitalComment on above:Order Comment: RIGHT SHOULDER CLOSED VS. OPEN REDUCTIONTYPE AND SCREENon 61-87-3134DCK INTERPRETATIONONoBrecksville VA / Crille HospitalComment on above:Performed By: #### 27354 #### [facility] [address] [place] [address], [facility]OLA HOSPITALRH INTERPRETATIONPositiveAdams County HospitalComment on above:Performed By: #### 56159 #### [facility] [address] [place] [address], [facility] Vital Signs Date TimeVital SignValuePerforming OfihlgurnBpznbasj73-24-5743 13:24-0400Body mass index (BMI) [Ratio]32.28 kg/n7YjeikbIraida Carrillo MD Work Phone: [facility] HospitalWzfnwepnuy16-23-7777 13:24-0400Body hsolml63 kg Iraida Carrillo MD Work Phone: [facility] HospitalTrcdpfngpv25-79-0408 13:24-0400Diastolic blood jtshvset41 mm[Hg]Iraida Carrillo MD Work Phone: [facility] HospitalGvfbjtdrpk39-93-5867 13:24-0400Systolic blood bliinrrv704 mm[Hg]Iraida Carrillo MD Work Phone: [facility] HospitalIuqzfphbpv13-97-8840 10:48-0400Body .1 Starr Carrillo MD Work Phone: [phone] [place], [place] [address]Vcxuuhrhei92-58-9199 10:48-0400Body mass index (BMI) [Ratio]32.78 kg/e8LrbwelIraida Carrillo MD Work Phone: [facility] HospitalMyarcytqil16-18-2816 10:48-0400Body gnyovr30.36 kgIraida Carrillo MD Work Phone: [phone]-[facility] HospitalFfijayxhhk93-27-8367 10:48-0400Diastolic blood mm[Hg]Iraida Carrillo MD Work Phone: [phone]-[facility] [address]Dlhhmwewcn16-92-7541 10:48-0400Systolic blood jtsyuqng215 mm[Hg]Iraida Carrillo MD Work Phone: [phone])[facility] Center[facility] HospitalUbtcxnnjtv50-64-9230 13:07-0400Body kufrcc075.1 Starr Carrillo MD Work Phone: [phone]-[facility] HospitalMrdosunstd02-73-5723 13:07-0400Body mass index (BMI) [Ratio]32.78 kg/g8HddzalIraida Carrillo MD Work Phone: [phone] [place], [place] [address]Rtfbjrhdqs09-74-7365 13:07-0400Body lyzsfz87.36 kgIraida Carrillo MD Work Phone: [phone]-[facility] HospitalVirfnqytft65-30-9620 13:07-0400Diastolic blood mgzundzc69 mm[Hg]Iraida Carrillo MD Work Phone: [phone]-[facility] HospitalNozgiibyei17-65-6950 13:07-0400Systolic blood mnqzifkq411 mm[Hg]Iraida Carrillo MD Work Phone: [facility] HospitalSkdjiwrllu97-07-6647 15:01-0500Blood Pressure LocationMichael NILL [facility]11-14-2023 15:01-0500Diastolic blood jflgudkc78 mm[Hg]Eron NILL [place] [address]-14-2023 15:01-0500Heart rate 70 /minMichael NILL [place] [address]-14-2023 15:01-0500 Respiratory rate16 /minMichael NILL [place] [address]-14-2023 15:01-0500Systolic blood cvkfyynn180 mm[Hg]Eron NILL [facility] Encounters Encounter DateEncounter TypeCare ProviderFacilityStart: 08-13-2025 End: 37-42-6086Sanyut Radha Carrillo MD Work Phone: no [place] OBGYNComment on above:Abnormal ultrasound of breast (Primary Dx)Start: 08-12-2025 End: 90-44-7315vczjkoroitLUKCLC P JONESNot AvailableStart: 07-28-2025 End: 16-72-9860yjxdbpmferNROEHR P JONESNot AvailableStart: 07-28-2025 End: 31-14-7090Egupic outpatient visit 15 minutesIraida Carrillo MD Work Phone: no [place] OBGYNComment on above:Vaginitis and vulvovaginitis; Cystocele with rectocele; Urinary incontinence, unspecified type; Postmenopausal atrophic vaginitisStart: 07-18-2025 End: 57-37-9897Sxhngtqnc encounterIraida Carrillo MD Work Phone: no [place] OBGYNStart: 07-07-2025 End: 68-04-2003Fimkvx outpatient visit 15 minutesIraida Carrillo MD Work Phone: noms [place] OBGYNComment on above:Acute vaginitis (Primary Dx); Urinary incontinence, unspecified type; Rectocele; Cystocele with rectocele; Vaginitis and vulvovaginitis; Postmenopausal atrophic vaginitisStart: 07-07-2025 End: 35-38-0453bcengipfkuPSBXYI P JONESNot AvailableStart: 06-20-2025 End: 35-75-8612Lqlzix Radha Carrillo MD Work Phone: no [place] OBGYNComment on above:Acute vaginitis (Primary Dx)Start: 06-16-2025 End: 98-37-4783Lxirlfy encounter procedureIraida Carrillo MD Work Phone: no [place] OBGYNComment on above:Encounter for gynecological examination; Mass of breast, unspecified laterality; Breast tenderness; Hard stool; Vaginal burning; Urinary incontinence, unspecified type; Vaginitis and vulvovaginitis; Encounter for gynecological examination without abnormal findingStart: 06-16-2025 End: 77-78-4598Vcvwsks encounter statusIraida Carrillo MD Work Phone: [facility] HealthcareStart: 06-16-2025 End: 30-38-3351kyqwheghkpVAUZDW P JONESNot AvailableStart: 05-23-2024 End: 83-98-1149Rysavazxbl hospital visit by physicianElizabeth Flores MD Work Phone: mthz LaboratoryComment on above:Bilateral lower abdominal painStart: 05-23-2024 End: 97-18-1749nqerjmuariQYTITHFawn Lorenzana HospitalStart: 05-14-2024 End: 82-48-6562hihouohlghIIOVEMFawn Lorenzana HospitalStart: 05-14-2024 Encounter for gynecological examination (general) (routine) without abnormal findingsELIZABETH Avendañofin HospitalStart: 05-14-2024 End: 81-25-7875Euhmeua encounter statusLala Goncalves MD Work Phone: bon [facility] HOSPITALStart: 05-14-2024 End: 01-25-9421Jccymixhsv hospital visit by physicianLala Goncalves MD Work Phone: mthz LaboratoryComment on above:Encounter for routine gynecologic examination in Medicare patientStart: 10-10-2023 End: 73-64-2610udxyieqqapAividfa R NILLFacility: Darricktart: 10-10-2023 End: 97-72-3759Yuymceg encounter procedureMichael R NILL General Surgery Nill/Said Brennen Start: 09-27-2023 End: 47-20-2161yvgslmwjnqXjibyno R NILLFacility:CD:[id number]: 09-05-2023 End: 32-95-2834mehxmmrcjpWrwucdk R NILLFacility: DarrickueStart: 09-05-2023 End: 20-79-9909Gcwmdkt encounter procedureMichael R NILL General Surgery Nill/Said [place] Start: 01-91-4714hvwbertkfpVrkjflg R NILLFacility:GS BellevueStart: 09-21-2022 End: 88-61-3972ryljlqukfaLB LALA HOYFacility:M7Pmbdb: 08-22-2022 End: 10-24-5858Ypspppx encounter procedureLala Goncalves MD Work Phone: mthz LaboratoryStart: 08-22-2022 End: 79-94-5994Xvcfsatjhh hospital visit by physicianLala Goncalves MD Work Phone: mthz LaboratoryComment on above:Women's annual routine gynecological examinationStart: 05-02-2022 End: 56-72-9502uvkglxnpvjNQ LALA HOYFacility:L1Atdie: 16-63-8141zogfnyfbzxLN LALA HOYFacility:V2Bmmdr: 04-20-2020 End: 67-17-1438Uackctgsft hospital visit by physicianLala [facility]aff[facility] Comment on above:Encounter for well woman exam with routine gynecological exam Start: 08-02-2019 End: 15-70-8267Ojpdmvgyqc and management of inpatientOSAMA ELATTARFacility:[facility] Start: 11-27-2018 End: 17-01-4638Tficzcv encounter procedureOSAMA ELATTARFacility:[facility]OSPITALtart: 08-23-2018 End: 05-66-2141Zswlhxvcfu and management of inpatientMARK SMITHFacility:[facility] Procedures DateProcedureProcedure DetailPerforming ClinicianStart: 77-98-6662Egfejkbcpxs Iraida Carrillo MD Work Phone: start: 29-83-6932OLDBTKK MYCOPLASMAS JOSE DAVID, SWABIraida Carrillo MD Work Phone: start: 87-71-2350Zpkzd chlamydia trachomatis amplified probe tqIraida Carrillo MD Work Phone: start: 80-39-5682KIT, APT HPV,RFX 16/18,45Iraida Carrillo MD Work Phone: start: 31-02-4876Rlfemdtjoo microscopic onlyElizabeth Flores MD Work Phone: Start: 70-52-1826Kyxev dip stick/tablet rgnt auto w/o microscopyElizabeth Flores MD Work Phone: Start: 50-34-7452Bqaffgfdthale metabolic panelElizabeth Flores MD Work Phone: Start: 31-75-9884LxrulllikcrSuolwu Jones MD Work Phone: start: 62-58-4249FdoljfqnvpmFichyqu NILL Start: 01-85-4264IUBTGDFFHRDR OF INFLUENZA VACCINE INTO MUSCLE, PERC APPROACHOSAMA ELATTARStart: 78-51-0352AYWSAPI OF R SHOULDER JT WITH REV BL \T\ SOCKT, OPEN APPROACHOSAMA ELATTARStart: 86-87-5124YWRNYY SURGERY OF SHOULDERKIMBERLY Kari REDStart: 18-28-9921PSMWTQMKZPK BICEPS TENODESISOSAMA ELATTARStart: 74-57-6075PVLGVU ROTATOR CUFF ACUTEOSAMA ELATTARStart: 08-23-2018 Antibody screenOSAMA ELATTARComment on above:Performed By: #### [id number] #### [facility] [address] [facility] [place] [address], USAStart: 41-34-6472HSPJXFELIQ RIGHT SHOULDER JOINT, EXTERNAL APPROACHOSAMA ELATTARStart: 12-66-0960UowcsjisadpZsvqnz Jones MD Work Phone: start: 94-94-1147EjiroupbtujdYknauhh NILL Comment on above:Jonel MemorialArthroplasty of right shoulderMichael NILL ColonoscopyMichael NILL ColonoscopyMichael NILL Comment on above:x 2 ([facility])Repair of musculotendinous cuff of shoulderMichael NILL TonsillectomyMichael NILL Vaginal hysterectomyMichael NILL Plan of Treatment DateCare ActivityDetailAuthorStart: 75-51-4912Rzettdkbn for malignant neoplasm of colonNOMD HealthcareStart: 44-95-4691Igutmvbue for malignant neoplasm of colonVIRGINIA HOSPITAL CENTERStart: 08-13-2026 End: 39-01-4986LI Breast - leftLeft breast US complete Imaging Routine Abnormal ultrasound of breast Expected: 08/13/2026, Expires: 11/13/2026[facility] Work Phone: comment on above:Expected: 08/13/2026, Expires: 11/13/2026Start: 46-36-5743Qnwjlqrot for malignant neoplasm of breastMammogram [facility] HealthcareStart: 06-18-2026 End: 34-88-3114Oepixih encounter dpwghyqwy30/27/2026 1:45 PM EDT Office Visit PAM DIAZ [address] [place] [address] Iraida Carrillo MD [address] [place] [address] PAM [place] OBGYNStart: 08-12-2025 End: 84-54-2740Vahhjmawuosa / ancillary services managementNOMS Zee Women's ImagingStart: 07-28-2025 End: 81-49-8896Btxsuvp encounter voetxvpgc30/06/2025 1:15 PM EDT Office Visit PAM DIAZ [address] [place] [address] Iraida Carrillo MD [address] [place] [address] PAM [place] OBGYNStart: 07-07-2025 End: 54-75-5801Hulliql encounter pamjmbang49/15/2025 10:45 AM EDT Office Visit ISAACAlana JonesSumnermary lou DIAZ [address] [place] [address] Iraida Carrillo MD [address] [place] [address] NOMAlana Zee OBGYNStart: 55-99-9583Ohaddtwdd vaccinationInfluenza Vaccine (#1)[facility] HealthcareStart: 06-16-2025 End: 26-87-6141RBQ Breast - bilateral diagnosticBilateral diagnostic mammogram with tomosynthesis Imaging Routine Mass of breast, unspecified laterality Breast tenderness Expected: 06/16/2025, Expires: 08/16/2026[facility] Work Phone: comment on above:Expected: 06/16/2025, Expires: 08/16/2026Start: 06-16-2025 End: 84-78-4709ZE Breast - bilateralBilateral breast US complete Imaging Routine Mass of breast, unspecified laterality Breast tenderness Expected: 06/16/2025, Expires: 08/16/2026[facility] HealthcareComment on above:Expected: 06/16/2025, Expires: 08/16/2026Start: 71-12-4039Xbacydman vaccinationFlu vaccine (#1)[facility]ITALStart: 91-13-4619Ymgfkm Wellness Visit (Medicare Advantage) Annual Wellness Visit (Medicare Advantage)[facility]Start: 09-21-2023 End: 22-92-3325Widtpkx encounter rsdymbbeb58/30/2023 Office Visit Obstetrics and Gynecology Elizabeth Flores MD [address] [place] [address] [facility]: 08-24-2023 End: 28-55-6502Cbpwlhh encounter htmzpkhxe57/02/2023 Office Visit Obstetrics and Gynecology Elizabeth Flores MD [address] [place] [address] [facility]: 22-14-9867BDUKK-19 Vaccine ( season)COVID-19 Vaccine ( season)[facility]ITALStart: 79-97-1453Gmljisrty for malignant neoplasm of breastBreast cancer screenBON [facility]: 12-20-1680Tejiebhnp vaccinationFlu vaccine (#1)[facility]: 43-52-5353FVLFW-19 Vaccine (5 - Booster for Pfizer series)COVID-19 Vaccine (5 - Booster for Pfizer series)[facility] Start: 08-63-3048Tmjqnglsxcyj 65+ years Vaccine (2 - PPSV23 if available, else PCV20)Pneumococcal 65+ years Vaccine (2 - PPSV23 if available, else PCV20)[facility] [facility]: 06-33-8842Tbxqtvreglwh 65+ years Vaccine (2 of 2 - PPSV23 or PCV20)Pneumococcal 65+ years Vaccine (2 of 2 - PPSV23 or PCV20)[facility]: 80-82-1556Vnutxvrkenis Vaccine: 65+ Years (2 of 2 - PCV20 or PCV21)Pneumococcal Vaccine: 65+ Years (2 of 2 - PCV20 or PCV21)[facility] HealthcareStart: 51-83-0157Ricndbhsxwhk Vaccine: 65+ Years (2 of 2 - PPSV23) Pneumococcal Vaccine: 65+ Years (2 of 2 - PPSV23)[facility] HealthcareStart: 65-23-3977Eqzcbdpdq vaccinationFlu vaccine (Season Ended)[place], [place] Start: 14-38-6864Pixxdrbij for malignant neoplasm of cervixCervical cancer screenC[place], [place]Start: 84-06-5973Jsjzriaay for malignant neoplasm of breastNOMS HealthcareStart: 51-32-3016Hgnffisqk for osteoporosisDEXA (modify frequency per FRAX score)[facility]: 54-94-9440Gdthgraqy for malignant neoplasm of colonColon cancer screen colonoscopyC[place], [place] Start: 97-63-9693Gigrdlui Vaccine (1 of 2)Shingles Vaccine (1 of 2)[facility]: 60-63-1707Qgiamwshe for malignant neoplasm of colonBON [facility]: 74-89-4424Bsoqtewe screenDiabetes screenLouis Stokes Cleveland VA Medical Centerart: 69-06-7160Fqnjbhfg screenDiabetes [facility] Start: 60-67-9962HHuB/Tdap/Td vaccine (1 - Tdap)DTaP/Tdap/Td vaccine (1 - Tdap) [facility]: 03-55-7463Huzbvqtoh C screeningHepatitis C screen [facility]: 76-08-9032WAG screeningHIV screenLouis Stokes Cleveland VA Medical Centerart: 09-61-2770Sjmijmvgbl ScreenDepression ScreenBon Secours Memorial [facility]: 83-55-5114Fseln panelBON [facility]: 1955 Creatinine measurementCreatinine monitoringOhioHealth [facility]ide Methodist Hospital: 1955 Hepatitis C screeningHepatitis C screenOhioHealth Riverside Methodist Hospital: 1955 Potassium monitoringPotassium [facility]: 1955 Screening for malignant neoplasm of colonNOSaint [facility] End: 42-67-0608Npsbcrkjphwxt procedure, preparation of smear, genital sourcePAP SMEAR Lab Routine Encounter For Well Woman Exam With Routine Gynecological Exam 1 Occurrences starting 04/20/2020 until 04/20/2020[place], [place] above:1 Occurrences starting 04/20/2020 until 04/20/2020 End: 46-99-4298Mmtrbswyqbunc procedure, preparation of smear, genital sourcePAP SMEAR Lab Routine Women's annual routine gynecological examination 1 Occurrences starting 08/22/2022 until 2BON [facility] [employer] Work Phone: comment on above:1 Occurrences starting 08/22/2022 until 08/22/2022 End: 29-88-2435Ixnxzmrgkruec procedure, preparation of smear, genital sourcePAP SMEAR Lab Routine Encounter for routine gynecologic examination in Medicare patient 1 Occurrences starting 05/14/2024 until 05/14/2024ON [facility]ITALComment on above:1 Occurrences starting 05/14/2024 until 05/14/2024GENITAL MYCOPLASMAS JOSE DAVID, SWABGENITAL MYCOPLASMAS JOSE DAVID, SWAB Pathology and Cytology Routine Vaginitis and vulvovaginitis Ordered: 07/07/2025[facility] HospitalComment on above:Ordered: 07/07/2025GENITAL MYCOPLASMAS JOSE DAVID, SWABGENITAL MYCOPLASMAS JOSE DAVID, SWAB Pathology and Cytology Routine Vaginitis and vulvovaginitis Ordered: 1 [facility] Healthcare Work Phone: comment on above:Ordered: 07/28/2025NuSwab Vaginitis Plus (VG+)NuSwab Vaginitis Plus (VG+) Microbiology Routine Vaginitis and vulvovaginitis Ordered: 07/07/2025[facility] Work Phone: comment on above:Ordered: 07/07/2025 Immunizations Immunization DateImmunizationNotesCare RvwzlhmiUwenmgnx87-29-6611wqlfkvtvc virus vaccine, unspecified formulationIraida Carrilol MD Work Phone: [facility] HospitalBexevbyyst14-73-8582mgatduxiu virus vaccine, unspecified formulationMichael NILL [facility] Ebgutwto75-84-1824dpuqscuev virus vaccine, unspecified formulationMichael NILL [facility] Yohgopkq48-90-1468QAEW-SzK-9 (COVID-19) mRNAMUL.ORD!a26703Oihcwjv NILL [facility] Nbtjifam77-42-4408BBVJ-CdQ-6 mRNA (sgrspvsktrq-vilh-enheoyv) vaccineMichael NILL [facility] Ypklxhuu68-20-5837RPLU-RfP-5 (COVID-19) mRNA BNT-162b2 vaxMichael NILL [facility] on above:Result Comment: 2023-08-31: PCE0658-91-0581UQAY-QkX-5 (COVID-19) mRNA BNT-162b2 vax Eron NILL General Surgery Rbdpsmib06-01-3303ESMK-JwC-4 (COVID-19) mRNA BNT-162b2 vaxEron NILL [facility] [place] Payers DatePayer CategoryPayerPolicy ID2023Medicare (Managed Care)[employer] [id number] [facility] Member Subscriber Plan / Payer (Effective 2020-Present) Name: Maryam Adam MemberID: [id number] Relation to Subscriber: Self Name: Maryam Adam Payer ID: Not on file Type: Not on file Address: [address] [place] [id number] BCBS - [place] PPO xxxxxxxxxxxxxxx 2019- Present [id number] [place], [place] [address]zzkeyajjvwxhcit [id number] 54-36-3134Rnqq-fxy85945[id number] 1.2.840.855866.1.13.239.2.7.3.318635.93564-64-3095QlybmwlV861630718673-97-0774 [id number] 2.16.840.1.280645.3.57[id number] 2.16.840.1.638422.3.57[id number] 2.16.840.1.834782.3.57[id number] 2.16.840.1.221389.3.57[id number] 2.16.840.1.600042.3.57[id number] 2.16.840.1.804471.3.57[id number] 2.16.840.1.015624.3.57[id number] 2.16.840.1.676591.3.57[id number] 2.16.840.1.071728.3.57[id number] 2.16.840.1.912774.3.57[id number] 2.16.840.1.654069.3.579.2.[id number] 2.16.840.1.089039.3.57[id number] 2.16.840.1.693134.3.579.2.[id number] 2.16.840.1.581342.3.57[id number] 2.16.840.1.714255.3.579.2.951827-70-7664Hnszruq10966907 2.16.840.1.188121.3.57[id number] 2.16.840.1.498743.3.579.[id number] 2.16.840.1.305295.3.579.2.1259 Social History DateTypeDetailFacilityStart: 04-20-2020 End: 28-76-2162Koesojv smoking status NHISNever smokerOhioHealth [facility]ide [facility] Hospital: 04-20-2020 End: 54-26-7598Ofgpygw intakeCurrent drinker of alcohol (finding)[facility]: 59-14-1890Orp Assigned At BirthNot on fileC[place], [place] Exposure to SARS-CoV-2 (event)Unable to assessOhioHealth [facility]ide Methodist Hospital: 14-96-4729Fysmnvb use and exposureSmokeless tobacco non-userBON [facility] Work Phone: start: 73-10-0865Ibnfxdq smoking statusNeverGeneral Surgery BellevueStart: 49-73-2866Zwi Assigned At BirthFeCleveland Clinic Children's Hospital for Rehabilitationtart: 28-28-6232Ilelprh of Social functionBON [facility]ITALStart: 85-23-0294Yjowupd smoking status NHISTobacco smoking consumption unknownNOMS Healthcare Functional Status BvdtUwagxdmkxmCymzalRqqjnhvq39-70-6960Hiaaqnbosi StatusN/AGeneral Surgery [place] Clinical Notes 05-02-2022 to 08-13-2025 Note Date & WvkuSvgiHprlchfp49-71-7963 History of Present illness Narrative* Iraida Carrillo MD - 08/13/2025 6:19 PM EDT Abnormal ultrasound Repeat 6 months documented in this encounterJefferson Memorial HospitalSholxayhdd37-15-4877 History of Present illness Narrative* Iraida Carrillo [...] denies any new issues or concerns. 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 3 week follow-up for pessary question and [...] by Iraida Carrillo MD documented in this encounterJefferson Memorial HospitalPteeeoxeqb72-96-0514 Telephone encounter Note* Telephone Encounter - Iraida Carrillo MD - 07/20/2025 7:50 PM EDT Positive culture [facility] HospitalOaigfsxaip45-68-8464 Miscellaneous Notes* Telephone Encounter - Iraida Carrillo MD - 07/20/2025 7:50 PM EDT Positive culture documented in this encounterJefferson Memorial HospitalSqlkzmvklf90-06-0696 History of Present illness Narrative* Iraida aCrrillo MD - 07/07/2025 10:45 AM EDT Images from the original note were not included. Iraida Carrillo MD Obstetrics and Gynecology Patient: Maryam Adam : 1955 (69 y.o.) Exam Date: 07/07/2025 Reason for Visit - Chief Complaint Patient presents with Pessary Check Patient present for pessary check, patient denies any issues or complaints at this time. 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 While these helped with the dryness, [...] rectocele Vaginal dryness Assessment: Patient reports using gnyc-bdl-qgimapf pills for vaginal dryness, which were helpful but resulted in increased blood pressure. Plan: - Reassess vaginal dryness symptoms and treatment options after resolution of vulvovaginal pruritus - Consider alternative treatments for vaginal dryness that do not affect blood pressure Vulvar biopsy of symptoms continue Cultures and Triamcinolone/Flucoazole ordered Assessment & Plan Electronically signed by Iraida Carrillo MD documented in this encounterJefferson Memorial HospitalFbwevpqazh49-97-7451 NoteChief Complaint consultation for positive Cologuard HPI [...] lifetime) Tobacco Use:. Never (more content not included)...[facility] HospitalComment on above:Result Comment: Electronically Signed By: YOHANA NARAYAN, Eron Starks\Date and Time Signed: 09/05/23 15:51 [id number] NotePROCEDURE: XR KNEE LT 4V or > COMPARISON: None. HISTORY: Derangement of knee FINDINGS: BONES:No acute fracture or dislocation. Moderate tricompartmental osteoarthropathy most significant in the anterior compartment with joint space narrowing and marginal osteophyte formation. SOFT TISSUES:Negative. No visible soft tissue swelling. EFFUSION:None visible. OTHER: Negative. IMPRESSION: Moderate osteoarthritis Electronically authenticated by: COLLETTE CUMMINGS Date: 2022-05-02 20:56[facility] + Plan note No data available for this section General Surgery [employer] Evaluation note* Diagnosis Women's annual routine gynecological examination documented in this encounter [employer] Phone: evaluation note* Diagnosis Encounter for routine gynecologic examination in Medicare patient documented in this encounter [facility]* Diagnosis Bilateral lower abdominal pain Abdominal pain, other specified site documented in this encounter [facility]* Diagnosis Acute vaginitis- Primary Unspecified vaginitis and vulvovaginitis documented in this encounter [facility] HealthcareEvaluation note* Diagnosis Encounter for gynecological examination Mass of breast, unspecified laterality Breast tenderness Mastodynia Hard stool Vaginal burning Other specified symptom associated with female genital organs Urinary incontinence, unspecified type Vaginitis and vulvovaginitis Encounter for gynecological examination without abnormal finding documented in this encounter [facility] HealthcareEvaluation note* Diagnosis Acute vaginitis- Primary Unspecified vaginitis and vulvovaginitis Urinary incontinence, unspecified type Rectocele Cystocele with rectocele Vaginitis and vulvovaginitis Postmenopausal atrophic vaginitis documented in this encounter [facility] HealthcareEvaluation note* Diagnosis Acute vaginitis- Primary Unspecified vaginitis and vulvovaginitis documented in this encounter [facility] HealthcareEvaluation note* Diagnosis Vaginitis and vulvovaginitis Cystocele with rectocele Urinary incontinence, unspecified type Postmenopausal atrophic vaginitis documented in this encounter [facility] HealthcareEvaluation note* Diagnosis Abnormal ultrasound of breast- Primary documented in this encounter [facility] HealthcareH[facility] Discharge instructions No data available for this section General Surgery [employer] note No data available for this section General Surgery [place] Summary Purpose Family History No Family History Records FoundNo Family History Records Found No data available for this section No data available for this section No Family History Records FoundNo Family History Records FoundNo Family History Records Found Advance Directives No Advanced Directives Records FoundDocuments on File TypeDate RecordedPatient RepresentativeExplanationAdvance Directives and 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 Name: Maryam Adam Admitted: 08/23/2018 Discharged: [...] (more content not included)... Note MR#: [id number] [facility] Pt. Name: Maryam Adam Admitted: 08/02/2019 Discharged: [...] section and content) DATE CREATED AUTHOR 08/20/2019 [facility] DATE CREATED AUTHOR AUTHOR'S ORGANIZ ATION 09/28/2022 [facility] DATE CREATED AUTHOR AUTHOR'S ORGANIZ ATION 10/19/2023 [facility] DATE CREATED AUTHOR AUTHOR'S ORGANIZ ATION 05/27/2024 [facility] DATE CREATED AUTHOR AUTHOR'S ORGANIZ ATION 08/17/2025 [facility] EPIC Care Teams (unrecognized sec tion and content) Team MemberRelationshipSpecialtyStart DateEnd Date Lala Goncalves MD [address] [place] [address] PCP - GeneralFamily Medicine05/17/16Team MemberRelationshipSpecialtyStart DateEnd Date Lala Goncalves MD [address] [place] [address] PCP - GeneralFamily Medicine05/17/16Team MemberRelationshipSpecialtyStart DateEnd Date Lala Goncalves MD [address] [place] [address] PCP - GeneralFamily Medicine05/17/16Team MemberRelationshipSpecialtyStart DateEnd Date Lala Goncalves MD [address] [place] [facility] [address] PCP - [facility] Cwfsadty83/6/25Team MemberRelationshipSpecialtyStart DateEnd Date Lala Goncalves MD [address] [place] [address] PCP - [facility]07/28/25 Reason for Visit (unrecogniz ed section and content) ReasonCommentsGynecologic ExamPatient present for yearly, patient denies any issues with breast. Patient has complaints of a prolapse bowel. LMP: PMPReason CommentsPessary CheckPatient present for pessary check, patient denies any issues or complaints at this time. LMP: PMPReasonCommentsPessary CheckPatient present for pessary check and reswab for ureaplasma. Patient denies any new issues or concerns. 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 [facility]. provides no warranty or guarantee of the accuracy or completeness of information in this document.
--- NOTE | 2025-09-22 10:00 | CA_ITS ---
Patient Name: RAJ SOLOMON MR#: [id number] : 1955 Exam Date: 09/22/2025 Ordering Doctor: DR. REMY ESCOBAR M.D. ECHOCARDIOGRAM REPORT PROCEDURE: CA ECHO DOPPLER COMPLETE INDICATIONS: Dyspnea on exertion, hypertension, diabetes COMPARISON: None. DESCRIPTION: COMPLETE ECHOCARDIOGRAM Real-time transthoracic echocardiography with 2D, M-mode, spectral and color flow Doppler performed. QUALITY: Technical quality was good. LEFT VENTRICLE: Normal chamber size. Mild concentric left ventricular hypertrophy. Normal systolic function. Estimated left ventricular ejection fraction is 65-70%. LV EF: Normal left ventricular ejection fraction, (>55%). DIASTOLIC: Diastolic function is indeterminate. ATRIAL SEPTUM: Visually appears intact. LEFT ATRIUM: Moderate dilatation. RIGHT ATRIUM: Mild dilatation. RIGHT VENTRICLE: Normal chamber size. Normal right ventricular systolic function. TRICUSPID VALVE: Normal mobility and thickness. No stenosis with trivial regurgitation. No evidence of pulmonary hypertension. RVSP 25 mmHg MITRAL VALVE: Normal mobility and thickness. No evidence of mitral valve stenosis. There is no mitral annular calcification. Trivial mitral regurgitation. AORTIC VALVE: Normal trileaflet appearance. No visible sclerosis. Normal leaflet mobility. No evidence of aortic valve stenosis. Trivial aortic regurgitation. AORTIC ROOT: Normal diameter and appearance, measuring 2.7 cm. PULMONIC VALVE: Normal thickness and mobility. No stenosis. No regurgitation. PERICARDIUM: No pericardial effusion. IVC: Collapses with inspiration. PLEURA: CONCLUSION: 1. Mild concentric left ventricular hypertrophy with normal systolic function. Estimated LVEF is 65 to 70%. 2. Normal right ventricular size and systolic function. 3. Mild to moderate biatrial dilatation. 4. No significant valvular dysfunction. 5. Normal right-sided pressures. Adult Echocardiography Procedure Report Left Ventricle LVEDD (3.7 - 5.6 cm): 4.69 cm LVESD (2.2 - 4.0 cm): 3.37 cm LVIVS thickness (0.6 - 1.2 cm): 1.21 cm LVPW thickness (0.5 - 1.0 cm): 1.06 cm e': 0.07 m/s E - e': 10.42 LVOT Max Gradient: 3.64 mm[Hg] LVOT Area (cm2): 0.95 m/s Peak Velocity (LVOT): 0.95 m/s Mean Velocity (LVOT): 0.69 m/s LVOT Diameter 2.04 cm Left Ventricular Ejection Fraction: 65-70 % Left Atrium LA Volume Index (2D A2C): 46.31 ml/m2 Left Atrium Systolic Dimension: 3.52 cm Mitral Valve MV E to A Ratio: 0.74 Mitral Valve A-Wave Peak Velocity: 0.95 m/s Mitral Valve E-Wave Peak Velocity: 0.70 m/s Right Ventricle Aorta AO Root Diam: 2.74 cm Aortic Valve AoV Area (Peak Donald): 2.49 cm2, 2.49 cm2 AoV Area (VTI): 2.61 cm2, 2.61 cm2 Peak Velocity(Antegrade Flow): 1.25 m/s Peak Gradient(Antegrade Flow): 6.23 mm[Hg] Mean Velocity(Antegrade Flow): 0.81 m/s Mean Gradient(Antegrade Flow): 2.99 mm[Hg] Velocity Time Integral: 32.25 cm Tricuspid Valve Peak Velocity (Regurgitant Flow): 2.35 m/s Pulmonic Valve Mean Gradient: 1.39 mm[Hg] Mean Velocity: 0.56 m/s Peak Velocity: 0.84 m/s Peak Gradient: 2.82 mm[Hg] Right Atrium Right Atrium Systolic Pressure: 50.66 ml, 50.66 ml Dictated by: Sachin See M.D. on 09/22/2025 at 11:52 Approved by: Sachin See M.D. on 09/22/2025 at 11:57
== END 2025-09-22 08:51 | disposition home or self-care (01) ==
LOC: US 08:50
PROVIDERS: PCP Family Medicine; Visit Provider Internal Medicine Cardiovascular Disease
DX: I1A.0 Resistant hypertension (principal); R06.09 Other forms of dyspnea
CPT/HCPCS: 76775; 93306; 93975